=== PATIENT | male | born 1955 | race Caucasian/White ===

== ENCOUNTER → 2019-05-20 05:59 | Outpatient (CLI) | payer MEDICARE, OTHER, SELFPAY ==
--- NOTE | 2019-05-20 11:09 | STRESSREP ---
Stress Test Report Exercise myocardial perfusion stress test. 63-year-old man with a history of chest pain. Medications, vitamin C, allopurinol. Stress protocol: Resting EKG demonstrates sinus bradycardia with a rate of 54 bpm normal intervals are noted resting blood pressures 130/82 mmHg. The patient exercised according to regular Frank protocol for total duration of 7 minutes and 45 seconds. The maximum heart rate attained was 141 bpm which was 90% of maximal predicted heart rate the maximum workload was 9.7 metabolic equivalents. At rest there were no ST or T wave changes noted suggest ischemia peak exercise upsloping ST changes only were noted with no meet the criteria for ischemia. No clinical angina was noted. The test was terminated due to leg fatigue. The resting blood pressures 130/82 mmHg with a peak blood pressure 182/82 mmHg. Rate-pressure product was 17,400. Myocardial perfusion protocol. 15.0 mCi of technetium 99m sestamibi was injected at rest. The patient exercised according to regular Frank protocol for 7 minutes 45 seconds at peak exercise 45 mCi of technetium 99m sestamibi was injected stress images were obtained stress and rest images were reconstructed in comparing the short axis vertical long horizontal long axis. Gated images was obtained Perfusion SPECT analysis: Review of the stress images demonstrate normal uptake of tracer noted in all areas of myocardium the resting images similar demonstrate normal uptake of tracer noted in all areas of the myocardium. No reversibility is no suggest ischemia no previous infarct is noted. Gated SPECT analysis: The gated ejection fraction is noted to be 56%. Conclusion: Normal exercise myocardial perfusion stress test with no evidence of ischemia. Preserved ejection fraction.
== END ==
PROVIDERS: Family Provider Family Medicine; PCP Family Medicine; Referring Provider Family Medicine; Visit Provider Family Medicine
DX: I77.89 Other specified disorders of arteries and arterioles (principal); R93.1 Abnormal findings on diagnostic imaging of heart and coronary circulation; I51.89 Other ill-defined heart diseases; I42.9 Cardiomyopathy, unspecified
CPT/HCPCS: 78452; 93017; A9500; A4216

== ENCOUNTER 2023-06-27 11:10 | Emergency (ER) | payer MEDICARE, OTHER, SELFPAY ==
[2023-06-27 11:13] VITALS: BP 180/96; PULSE 59; RESP 16; TEMP 36.8; O2SAT 99; BMI 37.8
--- NOTE | 2023-06-27 11:43 | CT_ITS ---
STUDY: CT ABDOMEN AND PELVIS WITHOUT CONTRAST REASON FOR EXAM: Male, 67 years old. Right flank pain RADIATION DOSAGE (If Supplied By Facility): CTDIvol = ( 23.01 ) mGy, DLP = ( 1304.77 ) mGycm TECHNIQUE: Transaxial images were obtained from the dome of the diaphragm to the symphysis pubis without oral contrast, and without intravenous contrast. Sagittal and coronal images were reconstructed. Individualized dose optimization techniques were used for this CT. COMPARISON: None. FINDINGS: Minimal increased markings in the posterior aspect of the lingular segment of the left upper lobe suggestive of either atelectasis and/or scarring. The visualized portions of the heart are within normal limits. Normal liver. I suspect tiny gallstones along the dependent portion of the gallbladder lumen. Normal spleen. Normal pancreas. Normal bilateral adrenal glands. Right perinephric stranding. 2 mm nonobstructive catheter is in the mid pole calyx of the right kidney. 2.5 mm nonobstructive calculus in the lower pole calyx of the right kidney. Mild degree of a right hydronephrosis and right hydroureter due to a recently passed calculus at the right side of the bladder. This measures 3.9 mm. Nonobstructive calculi are also seen in the left kidney in the mid and lower pole calyces. The larger measures 4 mm. There is a 3 cm x 2.4 cm cyst in the lower pole of the left kidney. There is a small hiatal hernia. Normal small intestine. Normal colon. The appendix is visualized and appears normal. There is scattered atherosclerotic calcification of the abdominal aorta, without a demonstrated aneurysm. Normal inferior vena cava. Normal retroperitoneum. Normal urinary bladder. There is enlargement of the prostate gland. Small bilateral inguinal hernias containing fat. There are degenerative changes of the visualized lumbar spine. CT/Abdomen/Pelvis without Cont IMPRESSION: Findings suggestive of recently passed 3.9 mm calculus at the base of the bladder on the right side. Mild right perinephric stranding and right hydronephrosis and right hydroureter. Nonobstructive calculi in the right kidney. I suspect tiny gallstones. Nonobstructive left intrarenal calculi. Electronically Signed: Sly Jones MD at 13:05 EST ,
--- NOTE | 2023-06-27 11:44 | ED.VIS.GI ---
HPI HPI - GI History of Present Illness Chief Complaint: Abd Pain Detail of Chief Complaint: Abdominal pain Informant: patient Abdominal Pain/Flank Pain Current Severity: 01/12 Narrative Narrative: Patient presents with abdominal pain started this morning around 8:30 AM. Complains of nausea. Complains of the pain kind of in his back and flank radiating towards the groin. He has had nausea but no vomiting. His did give him 1 Zofran. Patient rates the pain currently as an 8 out of 10. He had some bowel movements frequently this morning felt like he needed to go and just passed a few small hard stools that then became soft. He is having sensation of needing to urinate but only get small amounts of urine out. He does have remote history of kidney stone about 4 years ago. Patient has history of hypertension and high cholesterol as well as history of thyroidectomy. [facility] Medical History (Updated 06/27/23 @ 13:[address] Farooq Simmons, ) Basal cell carcinoma Gout HTN (hypertension) Hyperlipidemia Pyelonephritis Restless leg syndrome Thyroid cancer Vertigo Home Medications Ibuprofen [Motrin] 800 mg PO TID PRN PRN Pain #20 tabs 07/04/14 [Rx Last Taken Unknown] cyclobenzaprine 10 mg tablet 10 mg PO TID PRN Muscle Spasm ##20 07/04/14 [Rx Last Taken Unknown] hydrocodone-acetaminophen 5-325mg 5mg-325mg 1 tab PO Q6H PRN PRN Pain ##10 07/04/14 [Rx Last Taken Unknown] hydrocodone-acetaminophen 5-325mg 5mg-325mg 1 tab PO Q4H PRN PRN Pain 2 days #10 TABLETS 06/27/23 [Rx Last Taken Unknown] ondansetron 4 mg disintegrating tablet 4 mg PO Q8H PRN PRN Nausea #10 tabs 06/27/23 [Rx Last Taken Unknown] Allergy/AdvReac Type Severity Reaction Status Date / Time No Known Allergies Allergy Verified 06/27/23 11:13 Social History Smoking Status: Never smoker ROS ROS ED Review of Systems ROS Unobtainable: other Constitutional Constitutional ED: Reports lethargy; Denies chills, fever(s), sweats or weight loss Eyes Eyes: Denies blurry vision, change in vision or diplopia ENT ENT ED: Denies rhinorrhea or sore throat Cardiovascular Cardiovascular: Denies chest pain, orthopnea or racing heartbeat Respiratory/Chest Respiratory/Chest: Denies cough, dyspnea, dyspnea on exertion, orthopnea or sputum Gastrointestinal Gastrointestinal: Reports abdominal pain and nausea; Denies diarrhea or vomiting Genitourinary Genitourinary ED: Reports urinary frequency; Denies dysuria or hematuria Musculoskeletal Musculoskeletal: Denies arthralgias, back pain, myalgias or neck pain Integumentary Denies abscess, Abrasions or rash Neurologic Neurologic: Denies headache(s) or weakness Psychiatric Psychiatric: Denies anxiety, depression or suicidal thoughts Endocrine Endocrinology: Denies polydipsia, polyphagia or polyuria Hematologic/Lymphatic Hematologic/Lymphatic: Denies easy bleeding, easy bruising or lymphadenopathy Allergic/Immunologic Allergic/Immunologic ED: Denies mouth swelling, tongue swelling or urticaria EXAM Physical Exam Const Vital Signs: 06/27/23 11:13 06/27/23 13:39 Temperature 98.2 F Temperature Source Temporal Pulse Rate 59 L 78 Respiratory Rate 16 Blood Pressure 180/96 H 124/71 H Blood Pressure Mean 124 88 Pulse Ox 99 98 Oxygen Delivery Method Room Air Positive well nourished and well developed General Appearance ED: well developed and NAD HEENT Reports TM's clear and moist mucous membranes normocephalic and atraumatic; Negative for trauma or tenderness Tympanic Membrane ED: Yes TM's clear Eyes PERRL and EOMs intact bilaterally General Eye ED: Negative for pale conjunctiva or scleral icterus Neck no lymphadenopathy, supple and no JVD General: Negative for tenderness Chest Wall Negative for inspection of chest normal or palpation of chest normal Chest: Negative for tenderness Resp normal respiratory effort and clear to auscultation bilaterally Effort and Inspection: Negative for respiratory distress or pain with movement Auscultation: Negative for rhonchi, wheezes or diminished lung sounds Cardio regular rate, regular rhythm, S1 normal heart sound, S2 normal heart sound and no murmurs Peripheral Pulses: pulses 2+ throughout GI normal to inspection, nondistended, normoactive bowel sounds, soft to palpation, non-tender, non-distended and no masses GI Narrative: Tenderness palpation over right lower quadrant with some guarding. There is no rebound, rigidity, or peritoneal signs. Back/Spine no thoracic nor lumbar tenderness Back/Spine Narrative: CVA tenderness on the right Extremity normal to inspection General Extremety ED: Negative for edema General Extremity: Negative for edema Neuro oriented x3, CN's II-XII intact bilaterally, no sensory deficits noted and gait normal Sensorium / Orientation: awake, alert, oriented to person, oriented to place and oriented to time Motor Exam: strength 5/5 throughout and strength abnormal Psych mental status grossly normal Skin no rashes or lesions noted and no wounds MDM MDM MDM Narrative Medical decision making narrative: Patient presents with abdominal pain and urinary symptoms that started today. History of kidney stone 4 years ago. Pain progressively is worsened. In the differential would be kidney stone versus bowel obstruction or gallbladder disease or other acute intra-abdominal process. IV line established. He was medicated with Dilaudid and Toradol and Zofran and his pain resolved. CBC with differential obtained showed a white count of 9.8 with hemoglobin 14.4 and platelet count of 226. Chemistries unremarkable. LFTs were normal. BUN 23 and creatinine 1.61. Urinalysis showed 5-10 RBCs but no signs of infection. CT flank showed recently passed stone measuring 3.9 mm within the base of the bladder and mild right perinephric stranding. Discussed results with patient. He is comfortable currently. Will send home with urine strainer. Will give a prescription for a few [place] should he need something for pain for residual ureteral spasm. Will refer to urology for follow-up. Patient advised to return if worsening pain, fever, vomiting, or condition worsening way. Lab Data Labs: Laboratory Results - last 24 hr 06/27/23 06/27/23 11:55 12:00 WBC 9.8 RBC 5.02 Hgb 14.4 Hct 43.9 MCV 87.5 MCH 28.7 MCHC 32.8 RDW Std Deviation 41.0 RDW Coeff of Yoselyn 12.8 Plt Count 226 MPV 10.6 Immature Gran % (Auto) 0.400 Neut % (Auto) 72.3 H Lymph % (Auto) 17.7 L [place] % (Auto) 7.1 Eos % (Auto) 1.9 Baso % (Auto) 0.6 Absolute Neuts (auto) 7.1 Absolute Lymphs (auto) 1.74 Nucleated RBC % 0 Sodium 140 Potassium 4.2 Chloride 107 Carbon Dioxide 28.0 Anion Gap 5 BUN 23 H Creatinine 1.61 H Estim Creat Clear Calc 57.86 Est GFR (MDRD) Af Amer 55 L Est GFR (MDRD) Non-Af 45 L BUN/Creatinine Ratio 14.3 Glucose 104 Calcium 10.1 Total Bilirubin 0.60 AST 24 ALT 33 Alkaline Phosphatase 74 Total Protein 7.7 Albumin 3.9 Globulin 3.8 Albumin/Globulin Ratio 1.0 Urine Color Yellow Urine Clarity Clear Urine pH 5.0 Ur Specific Nu [place] 1.020 Urine Protein Negative Urine Glucose (UA) Normal Urine Ketones Negative Urine Occult Blood 150 H Urine Nitrite Negative Urine Bilirubin Negative Urine Urobilinogen Normal Ur Leukocyte Esterase 25 H Urine RBC 5-10 SEEN Urine WBC 0-5 SEEN Ur Squamous Epith Cells 0 SEEN Urine Bacteria 0 SEEN Urine Mucus 0 SEEN Radiography Diagnostic Testing: Clinical Impression(s) from Imaging Studies Abdomen/Pelvis CT 06/27/23 11:43 IMPRESSION: Findings suggestive of recently passed 3.9 mm calculus at the base of the bladder on the right side. Mild right perinephric stranding and right hydronephrosis and right hydroureter. Nonobstructive calculi in the right kidney. I suspect tiny gallstones. Nonobstructive left intrarenal calculi. Electronically Signed: Sly Jones MD at 13:05 EST , Discharge Plan Triage Chief Complaint: Abd Pain ED Provider: Farooq Simmons Dx/Rx/DC Orders Clinical Impression: Urolithiasis Instructions: ED Kidney Stone with Pain Prescriptions: New hydrocodone-acetaminophen [hydrocodone-acetaminophen] 5-325 mg tablet 1 tab PO Q4H PRN PRN (Reason: Pain) 2 Days Qty: 10 0RF ondansetron [ondansetron] 4 mg tablet,disintegrating 4 mg PO Q8H PRN PRN (Reason: Nausea) Qty: 10 0RF No Action Ibuprofen [Motrin] 800 MG tablet 800 mg PO TID PRN PRN (Reason: Pain) Qty: 20 0RF Rx Instructions: cyclobenzaprine 10 MG tablet 10 mg PO TID PRN (Reason: Muscle Spasm) Qty: 20 0RF hydrocodone-acetaminophen 1 TABLET tablet 1 tab PO Q6H PRN PRN (Reason: Pain) Qty: 10 0RF Primary Care Provider: Anthony Solano Referrals: David Weeks MD [Med Staff - Active Staff] - 3-5 Days Anthony Solano MD [Primary Care Provider] - Disposition Disposition: Home, Self Care Discharge Date/Time: 06/27/23 13:41
[2023-06-27] MEDS: Ondansetron 4 MG/2 ML Vial IV (11:56)
[2023-06-27] MEDS: Ketorolac 15 MG/ML Vial IV (11:56)
[2023-06-27] MEDS: HYDROmorphone 1 MG/ML Syringe IV (11:57)
[2023-06-27 12:07] LABS: Bacteria 0 SEEN /hpf (None Seen); Mucous, Urine 0 SEEN /hpf (<or=2+); Squamous Epithelial Cells - UA 0 SEEN /hpf (0-5)
[2023-06-27 12:08] LABS: Absolute Lymphocyte Count 1.74 X10^3/uL (0.83-4.51); Absolute Neutrophil Count 7.1 X10^3/uL (2.0-7.7); Basophil# 0.06 X10^3/uL; Basophil% 0.6 % (0-1); Eosinophil# 0.19 X10^3/uL; Eosinophils% 1.9 % (0-5); Hematocrit 43.9 % (40-54); Hemoglobin 14.4 g/dL (13.0-16.5); Lymphocyte # 1.74 X10^3/ul (0.83-4.51); Lymphocyte % 17.7 % (19-41); Mean Corp Hgb Conc 32.8 g/dL (32-36); Mean Corpuscular Hgb 28.7 pg (27.0-32.0); Mean Corpuscular Volume 87.5 fL (80-94); Mean Platelet Vol. 10.6 fl (6.2-12.0); Monocyte% 7.1 % (0-10); NRBC Flagged by Analyzer 0 % (0-5); Neutrophil % 72.3 % (47-70); Platelet Count 226 K/mm3 (150-450); RBC Distribution Width CV 12.8 % (11.6-14.6); Red Blood Count 5.02 M/mm3 (4.6-6.2); White Blood Count 9.8 K/mm3 (4.4-11.0)
[2023-06-27 12:09] LABS: Color, Urine Yellow (Yellow); Glucose, Dipstick Normal (Normal); Ketone-Dipstick Negative (Negative); Leukocyte Esterase-Dipstick 25 /ul (Negative); Nitrite-Dipstick Negative (Negative); Occult Blood-Urine 150 /ul (Negative); Protein-Dipstick Negative (Negative); Urine Bilirubin Dipstick Negative (Negative); Urine Clarity Clear (Clear); Urine Urobilinogen Normal (Normal)
[2023-06-27 12:17] LABS: Red Blood Cells-Urine 5-10 SEEN /hpf (0-5); White Blood Cells 0-5 SEEN /hpf (0-5)
[2023-06-27] MEDS: 0.9% Normal Saline (1000mL) 1,000 ML 150 ML IV (12:17)
[2023-06-27 12:24] LABS: AST(SGOT) 24 U/L (15-37); Alanine Aminotransfer ALT/SGPT 33 U/L (16-61); Albumin, Serum 3.9 g/dL (3.2-5.0); Alkaline Phosphatase 74 U/L (45-117); Anion Gap 5 (5-15); BUN 23 mg/dL (7-18); BUN/Creat Ratio 14.3 RATIO (10-20); Calcium,Total 10.1 mg/dL (8.5-10.1); Chloride 107 mmol/L (98-107); Creatinine, Serum 1.61 mg/dL (0.70-1.30); EST Glomerular Filtration Rate 45 mL/min (>60); Est Glom Filt Rate - Afr Amer 55 mL/min (>60); Estimated Creatinine Clearance 57.86 ml/min; Globulin 3.8 g/dL (2.2-4.2); Glucose 104 mg/dL (74-106); Potassium 4.2 mmol/L (3.5-5.1); Protein, Total 7.7 g/dL (6.4-8.2); Sodium Level 140 mmol/L (136-145)
--- OUTSIDE RECORDS SUMMARY | 2023-06-27 12:36 | XMS RPT_ITS | CCD ---
Author Name Unknown Address [address] [facility] [address] [place] [address] Organization [facility] Care Team Providers Care Free Lance Model Name Role Phone Bandar Graf PA-C Primary Care Provider [phone] Armond El DO Unavailable Bandar GRAF Primary Care Unavailable Bandar GRAF Attending Unavailable SELF Referring Unavailable IBAN CHIN Referring Unavailable Bandar GRAF Primary Care Unavailable Bandar GRAF Primary Care Unavailable HARLAN PALAFOX Attending Unavailable Bandar GRAF Primary Care Unavailable SILVIA LEÓN Referring Unavailable Bandar GRAF Primary Care Unavailable Bandar GRAF Primary Care Unavailable ARMOND EL Referring Unavailab ARMOND Stovall Attending Unavailab Bandar [place] Primary Care Unavailable Bandar GRAF Primary Care Unavailable ELENA SEPULVEDA Referring Unavailable Bandar GRAF Primary Care Unavailable ELIZABETH LOREDO JR Attending Unavailable Bandar GRAF Primary Care Unavailable ELENA SEPULVEDA Attending Unavailable IBAN CHIN Attending Unavailable Bandar GRAF Primary Care Unavailable MILO REEVES Referring Unavailable Bandar GRAF Attending Unavailable Bandar GRAF Primary Care Unavailable CASEY PERALES Attending Unavailable Bandar GRAF Primary Care Unavailable CASEY PERALES Referring Unavailable Bandar GRAF Primary Care Unavailable Bandar GRAF Primary Care Unavailable ELIZABETH LOREDO JR Attending Unavailable SELF Referring Unavailable Bandar GRAF Primary Care Unavailable RAFA LEBRON Attending Unavailable Medications Current Medications Medication Drug Class(es) Dates Sig (Normalized) Sig (Original) perflutren lipid microspheres 1.3 mL in NaCl (PF) 0.9% 10 mL injection (DEFINITY) (20 sources) Start: 09-14-2022 End: 12-14-2023 perflutren lipid microspheres 1.3 mL in NaCl (PF) 0.9% 10 mL injection (DEFINITY) Completed/Discontinued Medications Medication Drug Class(es) Dates Sig (Normalized) Sig (Original) allopurinol 300 mg oral tablet (20 sources) Xanthine Oxidase Inhibitor Start: 01-24-2023 take 1 tablet by mouth once daily allopurinol (ZYLOPRIM) 300 mg tablet Indications: Gout with manifestations Take 1 tablet by mouth once daily. 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] Onset: 01-14-2011 01-14-2011 Chronic Complications of surgical procedures or medical care (20 sources) Postoperative hypothyroidism; Translations: [Postprocedural hypothyroidism] Onset: 05-07-2018 05-07-2018 Chronic Disorders of lipid metabolism (20 sources) Mixed hyperlipidemia; Translations: [Mixed hyperlipidemia] Onset: 11-16-2015 11-16-2015 Chronic Essential hypertension (20 sources) Essential hypertension; Translations: [Essential (primary) hypertension] Onset: 07-06-2021 07-06-2021 Chronic Gout and other crystal arthropathies (20 sources) Gout; Translations: [Gout, unspecified] Onset: 03-23-2009 03-23-2009 Chronic Heart valve disorders (2 sources) Non-rheumatic mitral regurgitation ; Translations: [Nonrheumatic mitral (valve) insufficiency] Chronic Other and ill-defined heart disease (20 sources) Mild left ventricular systolic dysfunction; Translations: [Other ill-defined heart diseases] Onset: 07-08-2019 07-06-2021 Chronic Other and ill-defined heart disease (1 source) Other ill-defined heart diseases; Translations: [Mild left ventricular systolic dysfunction] Onset: 07-06-2021 Chronic Other diseases of kidney and ureters (1 source) Renal impairment; Translations: [Disorder of kidney and ureter, unspecified] 07-09-2023 Episodic Other hereditary and degenerative nervous system conditions (20 sources) Restless legs; Translations: [Restless legs syndrome] Onset: 10-20-2020 10-20-2020 Chronic Other hereditary and degenerative nervous system conditions (1 source) Restless legs syndrome; Translations: [Restless legs syndrome] Onset: 10-20-2020 Chronic Other nervous system disorders (1 source) Other chronic pain; Translations: [Chronic midline low back pain without sciatica] Onset: 06-14-2016 Chronic Other nervous system disorders (1 source) Notalgia paresthetica; Translations: [Paresthesia of skin] 01-11-2023 Episodic Other non-traumatic joint disorders (1 source) Acute ankle pain; Translations: [Pain in left ankle and joints of left foot] Episodic Other nutritional; endocrine; and metabolic disorders (20 sources) Obese class II; Translations: [Obesity, unspecified] Onset: 10-25-2017 10-25-2017 Chronic Other nutritional; endocrine; and metabolic disorders (1 source) Obesity; Translations: [Obesity, unspecified] 12-12-2022 Chronic Other nutritional; endocrine; and metabolic disorders (1 source) Obesity, unspecified; Translations: [Obesity, Class II, BMI 35-39.9] Onset: 10-25-2017 Chronic Other skin disorders (2 sources) Actinic keratosis; Translations: [Actinic keratosis] 01-11-2023 Episodic Other skin disorders (1 source) Inflamed seborrheic keratosis; Translations: [Inflamed seborrheic keratosis] 01-11-2023 Episodic Other upper respiratory infections (1 source) Acute upper respiratory infection; Translations: [Acute upper respiratory infection, unspecified] Episodic Pulmonary heart disease (20 sources) Pulmonary hypertension, unspecified; Translations: [Other chronic pulmonary heart diseases] Onset: 07-06-2021 07-06-2021 Chronic Residual codes; unclassified (20 sources) Obstructive sleep apnea syndrome; Translations: [Obstructive sleep apnea (adult) (pediatric)] Onset: 10-20-2020 10-20-2020 Chronic Residual codes; unclassified (1 source) Obstructive sleep apnea (adult) (pediatric); Translations: [MAXIMILIAN (obstructive sleep apnea)] Onset: 10-20-2020 Chronic Residual codes; unclassified (1 source) Other specified personal risk factors, not elsewhere classified; Translations: [Other specified personal history presenting hazards to health] Episodic Respiratory failure; insufficiency; arrest (adult) (1 source) Respiratory failure; insufficiency; arrest (adult); Translations: [Chronic renal failure (CRF), stage 3a (HCC)] Onset: 06-26-2023 Unclassified (1 source) 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); Translations: [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)] Onset: 09-05-2022 Unclassified (1 source) Chronic midline low back pain without sciatica; Translations: [Chronic midline low back pain without sciatica] Onset: 06-14-2016 Past or Other Problems Problem Classification Problem Date Documented Da te Episodic/Chronic Cardiac dysrhythmias (20 sources) Sinus bradycardia; Translations: [Bradycardia, unspecified] Onset: 07-06-2021 07-06-2021 Episodic Other diseases of kidney and ureters (1 source) Disorder of kidney and ureter, unspecified; Translations: [Renal insufficiency] Onset: 12-12-2022 Episodic Other ear and sense organ disorders (20 sources) Tinnitus; Translations: [Tinnitus, unspecified ear] Onset: 08-06-2010 08-06-2010 Episodic Other non-epithelial cancer of skin (20 sources) Malignant neoplasm of skin of face; Translations: [Unspecified malignant neoplasm of skin of nose] Onset: 08-23-2012 08-23-2012 Episodic Other non-traumatic joint disorders (1 source) Pain in left ankle and joints of left foot; Translations: [Acute left ankle pain] Onset: 11-09-2022 Episodic Other screening for suspected conditions (not mental disorders or infectious disease) (5 sources) Raised prostate specific antigen; Translations: [Elevated prostate specific antigen [PSA]] Onset: 12-12-2022 Episodic Residual codes; unclassified (20 sources) Family history of prostate cancer; Translations: [Family history of malignant neoplasm of prostate] Onset: 11-16-2015 11-16-2015 Episodic Residual codes; unclassified (20 sources) Insomnia; Translations: [Insomnia, unspecified] Onset: 07-08-2019 10-14-2020 Episodic Residual codes; unclassified (1 source) Insomnia, unspecified; Translations: [Insomnia, unspecified type] Onset: 10-14-2020 Episodic Residual codes; unclassified (1 source) Family history of malignant neoplasm of prostate; Translations: [Family history of prostate cancer in father] Onset: 11-16-2015 Episodic Spondylosis; intervertebral disc disorders; other back problems (20 sources) Chronic low back pain; Translations: [Chronic midline low back pain without sciatica] Onset: 06-14-2016 06-14-2016 Episodic Results Test Name Value Interpretation Reference Range Facil ity Vital Signs Date Time Vital Sign Value Performing Clinician Faci lity 03-16-2023 09:20-0400 Body height 180.3 cm Armond El DO Work Phone: [facility] 03-16-2023 09:20-0400 Body weight 120.66 kg Armond El DO Work Phone: [facility] 03-16-2023 09:20-0400 Diastolic blood pressure 76 mm[Hg] Armond El DO Work Phone: [facility] 03-16-2023 09:20-0400 Heart rate 54 /min Armond El DO Work Phone: [facility] 03-16-2023 09:20-0400 SaO2% (BldA) [Mass fraction] 97 % Armond El DO Work Phone: [facility] 03-16-2023 09:20-0400 Systolic blood pressure 128 mm[Hg] Armond El DO Work Phone: [facility] 12-12-2022 10:04-0400 Body temperature 97.9 [degF] Elizabeth Loredo Jr., MD Work Phone: [facility] 12-12-2022 10:04-0400 Body weight 117.48 kg Elizabeth Loredo Jr., MD Work Phone: [facility] 12-12-2022 10:04-0400 Heart rate 52 /min Elizabeth Loredo Jr., MD Work Phone: [facility] 12-12-2022 10:04-0400 Respiratory rate 16 /min Elizabeth Loredo Jr., MD Work Phone: [facility] 12-12-2022 10:04-0400 SaO2% (BldA) [Mass fraction] 96 % Elizabeth Loredo Jr., MD Work Phone: [facility] 12-12-2022 08:29-0400 Body weight 117.48 kg NA Graf PA-C Work Phone: [facility] 12-12-2022 08:29-0400 Diastolic blood pressure 72 mm[Hg] NA Graf PA-C Work Phone: [facility] 12-12-2022 08:29-0400 Heart rate 61 /min NA Graf PA-C Work Phone: [facility] 12-12-2022 08:29-0400 Respiratory rate 16 /min NA Graf PA-C Work Phone: [facility] 12-12-2022 08:29-0400 SaO2% (BldA) [Mass fraction] 98 % NA Graf PA-C Work Phone: [facility] 12-12-2022 08:29-0400 Systolic blood pressure 128 mm[Hg] NA Graf PA-C Work Phone: [facility] 11-09-2022 08:52-0400 Body temperature 97.59 [degF] Casey Perales PA-C Work Phone: [facility] 11-09-2022 08:52-0400 Body weight 116.57 kg Casey Perales PA-C Work Phone: [facility] 11-09-2022 08:52-0400 Diastolic blood pressure 70 mm[Hg] Casey Perales PA-C Work Phone: [facility] 11-09-2022 08:52-0400 Heart rate 52 /min Casey Perales PA-C Work Phone: [facility] 11-09-2022 08:52-0400 Respiratory rate 18 /min Casey Perales PA-C Work Phone: [facility] 11-09-2022 08:52-0400 Systolic blood pressure 110 mm[Hg] Casey Perales PA-C Work Phone: [facility] 09-14-2022 10:23-0400 Body height 181.6 cm Iban Chin LEARN TO SWIM INSTRUCTOR.WIRE BOUND BOX MACHINE HELPER Work Phone: [facility] 09-14-2022 10:23-0400 Body weight 119.93 kg Iban Chin LEARN TO SWIM INSTRUCTOR.WIRE BOUND BOX MACHINE HELPER Work Phone: [facility] 09-14-2022 10:23-0400 Diastolic blood pressure 70 mm[Hg] Iban Chin LEARN TO SWIM INSTRUCTOR.WIRE BOUND BOX MACHINE HELPER Work Phone: [facility] 09-14-2022 10:23-0400 Heart rate 43 /min Iban Chin LEARN TO SWIM INSTRUCTOR.WIRE BOUND BOX MACHINE HELPER Work Phone: [facility] 09-14-2022 10:23-0400 SaO2% (BldA) [Mass fraction] 99 % Iban Chin LEARN TO SWIM INSTRUCTOR.WIRE BOUND BOX MACHINE HELPER Work Phone: [facility] 09-14-2022 10:23-0400 Systolic blood pressure 114 mm[Hg] Iban Chin LEARN TO SWIM INSTRUCTOR.WIRE BOUND BOX MACHINE HELPER Work Phone: [facility] 07-06-2022 10:40-0500 Body weight 118.84 kg Elena Dias MD Work Phone: [facility] 07-06-2022 10:40-0500 Diastolic blood pressure 82 mm[Hg] Elena Dias MD Work Phone: [facility] 07-06-2022 10:40-0500 Heart rate 47 /min Elena Dias MD Work Phone: [facility] 07-06-2022 10:40-0500 Systolic blood pressure 132 mm[Hg] Elena Dias MD Work Phone: [facility] 06-13-2022 13:47-0500 Body temperature 97.2 [degF] Elizabeth Loredo Jr., MD Work Phone: [facility] 06-13-2022 13:47-0500 Body weight 118.66 kg Elizabeth Loredo Jr., MD Work Phone: [facility] 06-13-2022 13:47-0500 Diastolic blood pressure 74 mm[Hg] Elizabeth Loredo Jr., MD Work Phone: [facility] 06-13-2022 13:47-0500 Heart rate 58 /min Elizabeth Loredo Jr., MD Work Phone: [facility] 06-13-2022 13:47-0500 Respiratory rate 16 /min Elizabeth Loredo Jr., MD Work Phone: [facility] 06-13-2022 13:47-0500 SaO2% (BldA) [Mass fraction] 97 % Elizabeth Loredo Jr., MD Work Phone: [facility] 06-13-2022 13:47-0500 Systolic blood pressure 125 mm[Hg] Elizabeth Loredo Jr., MD Work Phone: [facility] 01-21-2022 07:15-0400 Body temperature 98.91 [degF] Millie Wolf APRN.WIRE BOUND BOX MACHINE HELPER Work Phone: [facility] 01-21-2022 07:15-0400 Body weight 118.3 kg Millie Wolf APRN.WIRE BOUND BOX MACHINE HELPER Work Phone: [facility] 01-21-2022 07:15-0400 Diastolic blood pressure 66 mm[Hg] Millie Wolf APRN.WIRE BOUND BOX MACHINE HELPER Work Phone: [facility] 01-21-2022 07:15-0400 Heart rate 69 /min Millie Wolf APRN.WIRE BOUND BOX MACHINE HELPER Work Phone: [facility] 01-21-2022 07:15-0400 Respiratory rate 21 /min Millie Wolf APRN.WIRE BOUND BOX MACHINE HELPER Work Phone: [facility] 01-21-2022 07:15-0400 SaO2% (BldA) [Mass fraction] 98 % Millie Wolf APRN.W[employer] BOUND BOX MACHINE HELPER Work Phone: [facility] 01-21-2022 07:15-0400 Systolic blood pressure 114 mm[Hg] Millie Lynn WIRE BOUND BOX MACHINE HELPER Work Phone: [facility] 11-25-2021 11:37-0400 Body weight 118.39 kg Elizabeth Loredo Jr., MD Work Phone: [facility] 11-25-2021 11:37-0400 Diastolic blood pressure 77 mm[Hg] Elizabeth Loredo Jr., MD Work Phone: [facility] 11-25-2021 11:37-0400 Heart rate 53 /min Elizabeth Loredo Jr., MD Work Phone: [facility] 11-25-2021 11:37-0400 SaO2% (BldA) [Mass fraction] 96 % Elizabeth Loredo Jr., MD Work Phone: [facility] 11-25-2021 11:37-0400 Systolic blood pressure 122 mm[Hg] Elizabeth Loredo Jr., MD Work Phone: [facility] Encounters Encounter Date Encounter Type Care Provider Facility Start: 06-26-2023 End: 06-26-2023 ambulatory [facility] Facility:[facility] Start: 06-19-2023 End: 06-20-2023 ambulatory [facility] Facility:[facility] Start: 04-20-2023 Telephone encounter Rafa Philippe on PA-C Work Phone: Dermatology Procedures Date Procedure Procedure Detail Performing Clinician Start: 12-12-2022 Lipid 1996 panel - S vishnu or Plasma Elizabeth Loredo Jr., MD Work Phone: Start: 09-14-2022 Ecg routine ecg w/le ast 12 lds i&r only [facility] Provider Start: 11-24-2021 Adult depression scr eening assessment Elizabeth Loredo Jr., MD Work Phone: Start: 10-13-2020 Adult depression scr eening assessment Rafa Lebron PA-C Work Phone: Start: 04-04-2014 Colonoscopy Rafa Philippe on PA-C Work Phone: Plan of Treatment Date Care Activity Detail Author Start: 06-13-2032 Urine microalbumin profile [facility] Start: 12-13-2027 Lipid 1996 panel - S vishnu or Plasma Lipid Screening [facility] Start: 12-13-2027 LIPID SCREEN LIPID SCREEN [facility] Start: 06-21-2027 PROSTATE CANCER SCRE ENING DISCUSSION PROSTATE CANCER SCREENING DISCUSSION [facility] Start: 06-15-2027 LIPID SCREEN LIPID SCREEN [facility] Start: 07-13-2026 LIPID SCREEN LIPID SCREEN [facility] Start: 06-15-2025 DIABET[facility] Start: 06-15-2025 Diabetes Screening Diabetes Screenin g [facility] Start: 04-04-2024 Colonoscopy COLONOSCOPY [facility] Start: 04-04-2024 COLORECTAL CANCER SCREENING COLORECTAL CANCER SCREENING [facility] Start: 03-16-2024 BP Controlled (<130/80) BP Controlle d (<130/80) [facility] Start: 12-13-2023 ANNUAL PCP TEAM [place] RAISER CECILIA DISEASE VISIT ANNUAL PCP TEAM CHRONIC DISEASE VISIT [facility] Start: 12-13-2023 BP CONTROLLED (<130/80) BP CONTROLLE D (<130/80) [facility] Start: 12-13-2023 SHINGRIX VACCINE (1 of 2) RAO GRIX VACCINE (1 of 2) [facility] Immunizations Immunization Date Immunization Notes Care Provider Bean washburn 06-13-2022 tetanus toxoid, redu tiara diphtheria toxoid, and acellular pertussis vaccine, adsorbed Elizabeth Loredo Jr., MD Work Phone: [facility] 03-23-2020 influenza, high-dose , quadrivalent vaccine (FLUZONE HIGH DOSE QUADRIVALENT) Rafa Lebron PA-C Work Phone: [facility] Work Phone: 03-23-2020 influenza virus vaccine, unspecified formulation Elizabeth Loredo Jr., MD Work Phone: [facility] 03-25-2019 influenza, high dose seasonal, preservative-free Rafa Lebron PA-C Work Phone: [facility] Work Phone: 03-25-2019 pneumococcal conjuga te vaccine, 13 valent Rafa Lebron PA-C Work Phone: [facility] Work Phone: 05-14-2018 influenza, injectabl e, quadrivalent, contains preservative Rafa GRIFFITH-Taisha Work Phone: [facility] 02-27-2017 influenza, injectabl e, quadrivalent, contains preservative Rafa GRIFFITH-C Work Phone: [facility] 03-19-2016 influenza, seasonal, injectable Rafa GRIFFITH-C Work Phone: [facility] 08-06-2010 tetanus and diphther ia toxoids, not adsorbed, for adult use Rafa Lebron PA-C Work Phone: [facility] Payers Date Payer Category Payer Medicare MEDICARE MEDICAR E A AND B [id number] 2019-Present [phone] [place] [address] Medicare [id number] 2019 Medicare MEDICARE MEDICAR E A AND B [id number] 2019-Present [phone] [place] [address] Medicare [id number] 2019 Medicare [id number] 2019 Unknown [employer] [id number] 2019-Present [phone] [address] [place] [address] Indemnity [id number] 2019 Unknown [employer] [id number] 2019-Present [phone] [address] [place] [address] Indemnity [id number] 2019 Unknown [id number] Social History Date Type Detail Facility Start: 09-17-2010 Tobacco smoking stat us NCIS Never smoked tobacco [facility] Work Phone: Start: 09-17-2010 Tobacco use and exposure Smokeless tobacco non-user [facility] Work Phone: Start: 07-06-2021 End: 12-12-2022 Alcohol intake Current non-drinker of alcohol (finding) [facility] Start: 1955 Sex Assigned At Male [facility] Start: 09-05-2021 End: 04-04-2022 Exposure to SARS-CoV-2 (event) Not sure [facility] Start: 06-17-2022 End: 12-12-2022 History of Social function [facility] Start: 06-17-2022 End: 12-12-2022 Tobacco use panel [facility] Adult Depression Screening Assessment 0 [facility] Start: 09-05-2019 Gender identity Identifies as male gender (finding) [facility] Start: 09-05-2019 Sexual orientation Heterosexual (fin ding) [facility] Clinical Notes 07-08-2019 to 06-26-2023 Telephone Encounter - Keri Ferro RN - 04/25/2023 3:00 PM ESTTelephone Encounter - Marry Hernandez RN - 04/20/2023 2:41 PM ESTPatient InstructionsMarry Hernandez RN - 04/20/2023 10:32 AM EST Note Date & Type Note Facility 06-26-2023 Note HNO ID: [id number] Author: Bandar GRAF PA-C Service: ? Author Type: Physician Skein Bander Type: Progress Notes Filed: 06/26/2023 10:25 Note Text: 67 year old male with c/o Aneurysm of ascending aorta without rupture (hcc) Mild left ventricular systolic dysfunction Sinus bradycardia Mild pulmonary hypertension (hcc) Maximilian (obstructive sleep apnea) Essential hypertension (primary encounter diagnosis) Chronic renal failure (crf), stage 3a (hcc) Mixed hyperlipidemia Cardiovascular interval hx: no events 09/26/2023 echo: CONCLUSIONS: - Exam indication: Ascending aortic aneurysm - LVSF WNL, EF = 52 ? 5%, normal left ventricular diastolic function. - RV size and RVSF WNL - There are no significant valvular abnormalities. - The visualized aorta is dilated with a maximal dimension of 4.3 cm. - Exam was compared with the prior echocardiographic exam performed on 08/02/2021, no significant change. Current meds: Lisinopril 5 mg daily Rosuvastatin 20 mg daily at bedtime Use of NTG: No Chest pain, arm, jaw pain, neck, or upper back pain suggestive of angina: No. SOB: No Dyspnea with exertion: No orthopnea: No Cough : No racing or irregular heartbeats: No palpitations: No syncopal sx: No Headache: No Unexplainable fatigue No Leg swelling: No Nausea: No diaphoresis: No Heartburn: No Claudication: No Smoking: No Following Low cholesterol, high fiber diet? A little If on statin: muscle aches? No If on statin: GI sx or diarrhea? No Additional history drinks a couple big bottles of water. Exercising daily with 2 miles on indoor track, stationary bike for a mile Lab review: Component Latest Ref Rng AND Units 06/15/2022 11/09/2022 12/12/2022 06/19/2023 WBC 3.70 - 11.00 k/uL 8.89 5.65 RBC 4.20 - 6.00 m/uL 4.67 4.49 Hemoglobin 13.0 - 17.0 g/dL 13.3 13.1 Hematocrit 39.0 - 51.0 % 41.9 38.4 (L) MCV 80.0 - 100.0 fL 89.7 85.5 MCH 26.0 - 34.0 pg 28.5 29.2 MCHC 30.5 - 36.0 g/dL 31.7 34.1 RDW-CV 11.5 - 15.0 % 13.2 13.2 Platelet Count 150 - 400 k/uL 233 202 MPV 9.0 - 12.7 fL 11.4 10.0 Neut% % 68.1 52.7 Abs Neut (ANC) 1.45 - 7.50 k/uL 6.05 2.98 Lymph% % 20.6 32.4 Abs Lymph 1.00 - 4.00 k/uL 1.83 1.83 Benton% % 7.5 9.4 Abs Benton <0.87 k/uL 0.67 0.53 Eosin% % 2.8 4.2 Abs Eosin <0.46 k/uL 0.25 0.24 Baso% % 0.7 0.9 Abs Baso <0.11 k/uL 0.06 0.05 Immature Gran % % 0.3 0.4 IMMATURE GRANS (ABS) <0.10 k/uL 0.03 <0.03 NRBC /100 WBC 0.0 0.0 Absolute nRBC <0.01 k/uL <0.01 <0.01 DTYPE Auto Auto Protein, Total 6.3 - 8.0 g/dL 6.6 6.8 Albumin 3.9 - 4.9 g/dL 4.2 4.3 Calcium 8.5 - 10.2 mg/dL 9.6 9.8 Bilirubin, Total 0.2 - 1.3 mg/dL 0.5 0.4 Alkaline Phosphatase 38 - 113 U/L 78 67 AST 14 - 40 U/L 18 17 ALT 10 - 54 U/L 16 17 Glucose 74 - 99 mg/dL 98 104 (H) BUN 9 - 24 mg/dL 21 26 (H) Creatinine 0.73 - 1.22 mg/dL 1.29 (H) 1.50 (H) Sodium 136 - 144 mmol/L 138 141 Potassium 3.7 - 5.1 mmol/L 4.4 4.0 Chloride 97 - 105 mmol/L 103 106 (H) CO2 22 - 30 mmol/L 28 29 Anion Gap 9 - 18 mmol/L 7 (L) 6 (L) eGFR >=60 mL/min/1.73mA? 60 50 (L) Cholesterol, Total <200 mg/dL 133 117 Triglyceride <150 mg/dL 86 55 HDL Cholesterol >39 mg/dL 56 52 Non HDL Cholesterol <130 mg/dL 77 65 Fasting Time hrs 12 11 VLDL Cholesterol <30 mg/dL 17 11 TC:HDL Ratio <5.10 2.38 2.25 LDL Cholesterol <100 mg/dL 60 54 LDL:HDL Ratio <2.54 1.07 1.04 Restless legs syndrome Current medications: Gabapentin 300mg dinner, 600mg at HS Doing well on med Sleeping better, dreaminng Follows with Dr. Loredo. 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 Yes. Thyroid pain: No. Mass effect: No. Change in energy level/ fatigue? Energy good, no motivation to do anything. Sleep disturbance ?No. Sleeping well, 6.5h on average Temperature Intolerance: cold No, hot No. Change in bowel habits? No. If yes: Weight changes?creeping upward. Change in hair or skin? No. If yes: Other symptoms: none Obesity, class ii, bmi 35-39.9 Vitals 03/16/2023 06/26/2023 06/26/2023 WEIGHT in POUNDS 266 lb 270 lb 272 lb WEIGHT in KILOGRAMS 120.657 kg 122.471 kg 123.378 kg Chronic midline low back pain without sciatica Doing pretty well but not stressing it. Cold causes knees to get sore. Current medications: Gabapentin 300 mg 1 capsule a.m., 2 capsules p.m. Skin cancer of nose Blue light treatment last week. No biopsies Chronic rhinitis Current medications: Ipratropium bromide 21 mcg - 2 sprays every 12 hours each side, no every night but sates works well. Ketoconazole 2% shampoo 2-3 times weekly HISTORIES FAMILY HISTORY Problem Relation Age of Onset Hypertension Mother Diabetes Mother Prostate Cancer Father Cancer Father Stroke Maternal Grandfather Alcohol/Drug Maternal Grandfather Cancer Paternal Grandmother PAST MEDICAL HISTORY Diagnosis D (more content not included)... [facility] 06-26-2023 Note HNO ID: [id number] Author: ELIZABETH LOREDO JR, MD Service: ? Author Type: Physician Type: Progress Notes Filed: 06/26/2023 10:16 Note Text: ESTABLISHED PATIENT VISIT CHIEF COMPLAINT: Follow Up HISTORY OF PRESENT ILLNESS: Lynn Dominguez is a 67 year old male, BMI 37.66 kg/m2 with a PMH significant for and per last office visit note of 12/12/22: 1. MAXIMILIAN (obstructive sleep apnea) - ICD9: 327.23, ICD10: G47.33 (primary diagnosis) Patient doing well both subjectively and objectively with PAP with perceived benefit. No complaints with PAP therapy. Encouraged compliance. Reminded to clean and replace equipment regularly. Advised pt not to drive or operate heavy machinery if sleepy. 2. Restless legs syndrome - ICD9: 333.94, ICD10: G25.81 Stable on current gabapentin dosing. No changes at this time. Refills provided. Renal function ok for dosing. 3. Class 2 obesity with body mass index (BMI) of 35.0 to 35.9 in adult, unspecified obesity type, unspecified whether serious comorbidity present - ICD9: 278.00, V85.35, ICD10: E66.9, Z68.35 Encouraged weight loss. PAP data download for past 90 days shows 86 nights of use for avg of 6 hours 39 minutes. 95% pressure is 9.4 cmH2O. 95% leak is 9.2 LPM. AHI is 1.0. Patient reports no issues with PAP device. States just slips the PAP on and goes to sleep. No leaks. No mask discomfort. Get replacement parts regularly. RLS varies - some days while watching tv in bed and the legs acting up. Taking 300mg gabapentin at suppler and 600mg at bedtime. Occurs a little bit after he is in bed. REVIEW OF SYSTEMS GENERAL:No weight loss, malaise or fevers. HEENT:Negative for frequent or significant headaches, No changes in hearing or vision, no nose bleeds or other nasal problems RESPIRATORY: Negative for cough, wheezing or shortness of breath. CARDIOVASCULAR: Negative for chest pain, leg swelling or palpitations. LAB/IMAGING: Those performed since patient's last visit have been reviewed. WBC (k/uL) Date Value 06/19/2023 5.65 RBC (m/uL) Date Value 06/19/2023 4.49 Hemoglobin (g/dL) Date Value 06/19/2023 13.1 Hematocrit (%) Date Value 06/19/2023 38.4 (L) MCV (fL) Date Value 06/19/2023 85.5 MCH (pg) Date Value 06/19/2023 29.2 MCHC (g/dL) Date Value 06/19/2023 34.1 RDW-CV (%) Date Value 06/19/2023 13.2 Platelet Count (k/uL) Date Value 06/19/2023 202 MPV (fL) Date Value 06/19/2023 10.0 Glucose (mg/dL) Date Value 06/19/2023 104 (H) BUN (mg/dL) Date Value 06/19/2023 26 (H) Creatinine (mg/dL) Date Value 06/19/2023 1.50 (H) Sodium (mmol/L) Date Value 06/19/2023 141 Potassium (mmol/L) Date Value 06/19/2023 4.0 Chloride (mmol/L) Date Value 06/19/2023 106 (H) CO2 (mmol/L) Date Value 06/19/2023 29 Protein, Total (g/dL) Date Value 06/19/2023 6.8 Albumin (g/dL) Date Value 06/19/2023 4.3 Calcium, Total (mg/dL) Date Value 06/19/2023 9.8 Alkaline Phosphatase (U/L) Date Value 06/19/2023 67 Bilirubin, Total (mg/dL) Date Value 06/19/2023 0.4 AST (U/L) Date Value 06/19/2023 17 ALT (U/L) Date Value 06/19/2023 17 Hep C Antibody IA (no units) Date Value 11/16/2015 Negative URINALYSIS Specific [place], Ur Date Value Ref Range Status 05/13/2019 1.008 1.005 - 1.030 Final Glucose, Urine Date Value Ref Range Status 05/13/2019 Negative Negative mg/dL Final Bilirubin, Urine Date Value Ref Range Status 05/13/2019 Negative Negative Final Ketones, Urine Date Value Ref Range Status 05/13/2019 Negative Negative Final Hemoglobin/Blood,Ur Date Value Ref Range Status 05/13/2019 Negative Negative Final Protein, Urine Date Value Ref Range Status 05/13/2019 Negative Negative mg/dL Final WBC, Urine Date Value Ref Range Status 05/13/2019 0-5 0 - 5 /HPF Final MEDICATIONS: allopurinol (ZYLOPRIM) 300 mg tabletTake 1 tablet by mouth once daily.Disp: 90 tabletRfl: 3 Calcipotriene 0.005 % solnApply to to scalp twice daily.Disp: 60 mLRfl: 3 gabapentin (NEURONTIN) 300 mg capsuleTAKE 1 CAPSULE BY MOUTH AFTER ARRIVING HOME FROM WORK THEN 2 CAPSULES AT APPROXIMATELY 7 PMDisp: 270 capsuleRfl: 1 Ipratropium [place] (ATROVENT) 21 mcg (0.03 %) nasal sprayUse 2 Sprays in the nose every 12 hours.Disp: 3.5 mLRfl: 5 ketoconazole (NIZORAL) 2 % shampooApply to wet hair, lather, and rinse thoroughly. Use 2-3 times weekly or as needed to control symptoms.Disp: 120 mLRfl: 5 levothyroxine (SYNTHROID) 137 mcg tabletTake 1 tablet by mouth once daily. Except none on sundaysDisp: 90 tabletRfl: 4 lisinopril (ZESTRIL) 5 mg tabletTake 1 tablet by mouth once daily.Disp: 90 tabletRfl: 3 rosuvastatin (CRESTOR) 20 mg tabletTake 1 tablet by mouth daily at bedtime.Disp: 90 tabletRfl: 3 triamcinolone acetonide (KENALOG) 0.1 % creamApply to affected areas twice daily as needed for irritation following photodynamic therapy.Disp: 15 gRfl: 1 omega 6-ewi-thp-fish oil (FISH OIL) 10 (more content not included)... [facility] 04-25-2023 Miscellaneous Notes Placed in the mail [employer] insurance forms brought in by patient. Forms placed on Rafa Lebron MS, PA-C desk for completion. Please mail forms to patient in self addressed envelope (attached). documented in this encounter [facility] 04-20-2023 Note HNO ID: [id number] Author: Marry Hernandez RN Service: ? Author Type: Registered Nurse Type: Progress Notes Filed: 04/20/2023 12:57 PM Note Text: PHOTODYNAMIC THERAPY April 20, 2023 Dx: Actinic Keratosis Pt ID verified with patient: Yes Procedure verified against order and with patient: Yes Skin prepped with 70% isopropyl alcohol Yes Area treated: Full face Number of Levulan sticks applied: 1 Lot # [id number] 11/2025 Time before Blue Light exposure: 15 minutes Area treated: Full face Pt exposed to light for 30 minutes Patient reaction during treatment: None, patient tolerated procedure well. Patient reaction after treatment: None, patient tolerated procedure well. Aftercare instructions given. Patient verbalizes understanding. Follow up with Rafa Lebron PA-C . Marry Hernandez RN [facility] 04-20-2023 Instructions Marry Hernandez RN - 04/20/2023 10:33 AM EST After Care Instructions Photodynamic Therapy with Levulan and Blue Light Expected skin changes after PDT: The treated skin will likely turn red and may appear slightly swollen 24-48 h after treatment, but you should not see any blistering. Redness usually peaks one-to-two days after treatment and gets better within a week. Actinic keratosis lesions may not be gone until about four weeks after treatment. The skin may be itchy or change color slightly after treatment, but these changes are temporary. Photosensitivity: Levulan remains in the skin for 48 hours, so further reactions (redness and a tingling or burning sensation) can be caused by light exposure if one is not careful. Therefore, for about 2 days after the treatment, you should take care to protect the treated areas from light. Stay out of strong, direct light. Stay indoors as much as possible. Wear protective clothing and wide-brimmed hats to avoid sunlight when outdoors. Avoid beaches, snow, light colored concrete, or other reflective surfaces. After Care steps for you to do at home: Again, avoid direct light for 48 hours. Gently wash area twice a day with Cetaphil, Neutrogena or other mild cleanser. Do not scrub! After cleansing, use Aquaphor or Vaseline twice a day to keep the area moist and free of crust. Apply the topical steroid ointment that your doctor has prescribed for you (or alternatively, you can use 1% hydrocortisone ointment available at any pharmacy) to the entire treated area, twice a day as needed for 2-4 days, to help decrease redness and irritation. Apply the steroid BEFORE applying Aquaphor ointment, not afterwards. Apply cool compresses as needed for comfort during the first few days. After day 3, gently exfoliate with a soft washcloth and warm water twice a day. Then apply either Aquaphor or Vaseline. To address swelling and redness, you may also take [id number]-[id number] oral medications: Claritin (loratidine) 10 mg in the morning, Benadryl (diphenhydramine) 25-50 mg nightly (may cause drowsiness) and/or Ibuprofen as directed. If you absolutely must go outdoors during the first 48 hours, cover yourself with a broad-brimmed hat and use Neutrogena sensitive skin (chemical free) sunscreen SPF 30, or other titanium-dioxide type of sunscreen, in a thick layer to protect you from sunlight If you have questions or concerns, call the following number(s): [facility] [phone] documented in this encounter [facility] 04-20-2023 History of Presen t illness Narrative PHOTODYNAMIC THERAPY April 20, 2023 Dx: Actinic Keratosis Pt ID verified with patient: Yes Procedure verified against order and with patient: Yes Skin prepped with 70% isopropyl alcohol Yes Area treated: Full face Number of Levulan sticks applied: 1 Lot # [id number] 11/2025 Time before Blue Light exposure: 15 minutes Area treated: Full face Pt exposed to light for 30 minutes Patient reaction during treatment: None, patient tolerated procedure well. Patient reaction after treatment: None, patient tolerated procedure well. Aftercare instructions given. Patient verbalizes understanding. Follow up with SUZANNA Hernandez RN documented in this encounter [facility] 03-16-2023 Note HNO ID: [id number] Author: Armond El, DO Service: ? Author Type: Physician Type: Progress Notes Filed: 03/16/2023 4:28 PM Note Text: [facility] OUTPATIENT VISIT DATE March 16, 2023 PRIMARY CARE PHYSICIAN: Bandar Gra[address] [place] [address] HISTORY OF PRESENT ILLNESS: Mr. Dominguez is a 67 year old male. The patient returns for follow-up due to history of mild LV systolic dysfunction with normalization as well as hypertension, hyperlipidemia, ascending aortic dilatation, obstructive sleep apnea compliant to CPAP mask and mild to moderate mitral regurgitation. He has dyspnea with more extremes of exertion but is not overly active. He denies chest discomfort, orthopnea, paroxysmal nocturnal dyspnea, palpitations, near-syncope or syncope. His accompanies him again today. PLAN AND RECOMMENDATIONS: The patient remained stable without apparent symptoms that would suggest angina or cardiac decompensation. Heart rate, blood pressure and recent cholesterol profile are favorable with not excellent. We have therefore made no additions or changes. Dietary and lifestyle modification was reemphasized to facilitate risk factor reduction. We will look forward to reevaluating him in 6 months time. Vitals: BP 128/76 Pulse (!) 54 Ht 180.3 cm (5' 11 ) Wt 120.7 kg (266 lb) SpO2 97% BMI 37.10 kg/m? Physical Exam Vitals reviewed. Constitutional: General: He is not in acute distress. Appearance: He is well-developed. He is not diaphoretic. HENT: Head: Normocephalic and atraumatic. Right Ear: External ear normal. Left Ear: External ear normal. Nose: Nose normal. Eyes: General: No scleral icterus. Right eye: No discharge. Left eye: No discharge. Pupils: Pupils are equal, round, and reactive to light. Neck: Thyroid: No thyromegaly. Vascular: No JVD. Cardiovascular: Rate and Rhythm: Normal rate and regular rhythm. Heart sounds: No murmur heard. No friction rub. No gallop. Pulmonary: Effort: Pulmonary effort is normal. No respiratory distress. Breath sounds: Normal breath sounds. No wheezing or rales. Abdominal: General: Bowel sounds are normal. Palpations: Abdomen is soft. Musculoskeletal: General: Normal range of motion. Cervical back: Neck supple. Skin: General: Skin is warm and dry. Coloration: Skin is not pale. Neurological: Mental Status: He is alert and oriented to person, place, and time. Cranial Nerves: No cranial nerve deficit. Psychiatric: Mood and Affect: Mood is not anxious or depressed. Behavior: Behavior normal. Thought Content: Thought content normal. Judgment: Judgment normal. Review of Systems Constitutional: Negative for activity change, appetite change, fatigue and unexpected weight change. HENT: Negative for ear pain and trouble swallowing. Eyes: Negative for pain and visual disturbance. Respiratory: Positive for shortness of breath. Negative for chest tightness. Cardiovascular: Negative for chest pain, palpitations and leg swelling. Gastrointestinal: Negative for abdominal pain and blood in stool. Endocrine: Negative for cold intolerance and heat intolerance. Genitourinary: Negative for dysuria, hematuria and scrotal swelling. Musculoskeletal: Negative for arthralgias and myalgias. Skin: Negative for pallor and rash. Allergic/Immunologic: Negative for immunocompromised state. Neurological: Negative for dizziness, syncope and light-headedness. Hematological: Negative for adenopathy. Does not bruise/bleed easily. Psychiatric/Behavioral: Negative for sleep disturbance. The patient is not nervous/anxious. PAST MEDICAL HISTORY Diagnosis Date Ascending aorta dilatation (HCC) Basal cell cancer Decreased peripheral vision of left eye Essential hypertension 07/06/2021 GERD (gastroesophageal reflux disease) Gout Jeffry's thyroiditis with thyroid nodules Mild left ventricular systolic dysfunction Mild pulmonary hypertension (HCC) Mixed hyperlipidemia 11/16/2015 Obesity MAXIMILIAN (obstructive sleep apnea) 10/20/2020 Osteoarthritis Sinus bradycardia PAST SURGICAL HISTORY Procedure Laterality Date COLONOSCOPY 04-04-14 repeat in 10 yrs INT REPAIR SCALP,SYDNI,TRUNK <2.5CM 12-23-10 PAST SURGICAL HISTORY OF left knee PAST SURGICAL HISTORY OF right hammer toe PAST SURGICAL HISTORY OF left hammer toe REM LESION TRUNK,ARM, LEG <0.5 CM 12-23-10 THYROIDECTOMY TOTAL/COMPLETE 12-23-10 Social History Tobacco Use Smoking status: Never Smokeless tobacco: Never Vaping Use Vaping Use: Never used Substance Use Topics Alcohol use: No Drug use: No FAMILY HISTORY Problem Relation Age of Onset Hypertension Mother Diabetes Mother Prostate Cancer Father Cancer Father Stroke Maternal Grandfather Alcohol/Drug Maternal Grandfather Cancer (more content not included)... [facility] 03-16-2023 History of Presen t illness Narrative Images from the original note were not included. [facility] OUTPATIENT VISIT DATE March 16, 2023 PRIMARY CARE PHYSICIAN: Bnadar [address] [place] [address] HISTORY OF PRESENT ILLNESS: Mr. Dominguez is a 67 year old male. The patient returns for follow-up due to history of mild LV systolic dysfunction with normalization as well as hypertension, hyperlipidemia, ascending aortic dilatation, obstructive sleep apnea compliant to CPAP mask and mild to moderate mitral regurgitation. He has dyspnea with more extremes of exertion but is not overly active. He denies chest discomfort, orthopnea, paroxysmal nocturnal dyspnea, palpitations, near-syncope or syncope. His accompanies him again today. PLAN AND RECOMMENDATIONS: The patient remained stable without apparent symptoms that would suggest angina or cardiac decompensation. Heart rate, blood pressure and recent cholesterol profile are favorable with not excellent. We have therefore made no additions or changes. Dietary and lifestyle modification was reemphasized to facilitate risk factor reduction. We will look forward to reevaluating him in 6 months time. Vitals: BP 128/76 Pulse (!) 54 Ht 180.3 cm (5' 11 ) Wt 120.7 kg (266 lb) SpO2 97% BMI 37.10 kg/m Physical Exam Vitals reviewed. Constitutional: General: He is not in acute distress. Appearance: He is well-developed. He is not diaphoretic. HENT: Head: Normocephalic and atraumatic. Right Ear: External ear normal. Left Ear: External ear normal. Nose: Nose normal. Eyes: General: No scleral icterus. Right eye: No discharge. Left eye: No discharge. Pupils: Pupils are equal, round, and reactive to light. Neck: Thyroid: No thyromegaly. Vascular: No JVD. Cardiovascular: Rate and Rhythm: Normal rate and regular rhythm. Heart sounds: No murmur heard. No friction rub. No gallop. Pulmonary: Effort: Pulmonary effort is normal. No respiratory distress. Breath sounds: Normal breath sounds. No wheezing or rales. Abdominal: General: Bowel sounds are normal. Palpations: Abdomen is soft. Musculoskeletal: General: Normal range of motion. Cervical back: Neck supple. Skin: General: Skin is warm and dry. Coloration: Skin is not pale. Neurological: Mental Status: He is alert and oriented to person, place, and time. Cranial Nerves: No cranial nerve deficit. Psychiatric: Mood and Affect: Mood is not anxious or depressed. Behavior: Behavior normal. Thought Content: Thought content normal. Judgment: Judgment normal. Review of Systems Constitutional: Negative for activity change, appetite change, fatigue and unexpected weight change. HENT: Negative for ear pain and trouble swallowing. Eyes: Negative for pain and visual disturbance. Respiratory: Positive for shortness of breath. Negative for chest tightness. Cardiovascular: Negative for chest pain, palpitations and leg swelling. Gastrointestinal: Negative for abdominal pain and blood in stool. Endocrine: Negative for cold intolerance and heat intolerance. Genitourinary: Negative for dysuria, hematuria and scrotal swelling. Musculoskeletal: Negative for arthralgias and myalgias. Skin: Negative for pallor and rash. Allergic/Immunologic: Negative for immunocompromised state. Neurological: Negative for dizziness, syncope and light-headedness. Hematological: Negative for adenopathy. Does not bruise/bleed easily. Psychiatric/Behavioral: Negative for sleep disturbance. The patient is not nervous/anxious. PAST MEDICAL HISTORY Diagnosis Date Ascending aorta dilatation (HCC) Basal cell cancer Decreased peripheral vision of left eye Essential hypertension 07/06/2021 GERD (gastroesophageal reflux disease) Gout Jeffry's thyroiditis with thyroid nodules Mild left ventricular systolic dysfunction Mild pulmonary hypertension (HCC) Mixed hyperlipidemia 11/16/2015 Obesity MAXIMILIAN (obstructive sleep apnea) 10/20/2020 Osteoarthritis Sinus bradycardia PAST SURGICAL HISTORY Procedure Laterality Date COLONOSCOPY 04-04-14 repeat in 10 yrs INT REPAIR SCALP,SYDNI,TRUNK <2.5CM 12-23-10 PAST SURGICAL HISTORY OF left knee PAST SURGICAL HISTORY OF right hammer toe PAST SURGICAL HISTORY OF left hammer toe REM LESION TRUNK,ARM, LEG <0.5 CM 12-23-10 THYROIDECTOMY TOTAL/COMPLETE 12-23-10 Social History Tobacco Use Smoking status: Never Smokeless tobacco: Never Vaping Use Vaping Use: Never used Substance Use Topics Alcohol use: No Drug use: No FAMILY HISTORY Problem Relation Age of Onset Hypertension Mother Diabetes Mother Prostate Cancer Father Cancer Father Stroke Maternal Grandfather Alcohol/Drug Maternal Grandfather Cancer Paternal Grandmother ALLERGIES No Known Allergies CURRENT MEDICATIONS: allopurinol (ZYLOPRIM) 300 mg tablet^Take 1 tablet by mouth once daily.^Disp: 90 tablet^Rfl: 3 ascorbic acid (SUSAN-C ORAL)^Take by mouth.^Disp: ^Rfl: Calcipotriene 0.005 % soln^Apply to to scalp twice daily.^Disp: 60 mL^Rfl: 3 Cholecalciferol, Vitamin D3, 50 mcg (2,000 unit) cap^Take 1 capsule by mouth once daily.^Disp: ^Rfl: CPAP^AutoPAP with humidification set at a range of 5-16 cmH2O. Lifetime supplies. Please fit with Modanisawear under nose FFM. Please provide us download after 4 weeks of use.^Disp: 1 Device^Rfl: 99 Fluocinolone-Shower Cap 0.01 % oil^Apply to affected area of scalp nightly and wash out in the morning.^Disp: 118.28 mL^Rfl: 5 gabapentin (NEURONTIN) 300 mg capsule^TAKE 1 CAPSULE BY MOUTH AFTER ARRIVING HOME FROM WORK THEN 2 CAPSULES AT APPROXIMATELY 7 PM^Disp: 270 capsule^Rfl: 1 Ipratropium [place] (ATROVENT) 21 mcg (0.03 %) nasal spray^Use 2 Sprays in the nose every 12 hours.^Disp: 3.5 mL^Rfl: 5 ketoconazole (NIZORAL) 2 % shampoo^Apply to wet hair, lather, and rinse thoroughly. Use 2-3 times weekly or as needed to control symptoms.^Disp: 120 mL^Rfl: 5 levothyroxine (SYNTHROID) 137 mcg tablet^Take 1 tablet by mouth once daily. Except none on sundays^Disp: 90 tablet^Rfl: 4 lisinopril (ZESTRIL) 5 mg tablet^Take 1 tablet by mouth once daily.^Disp: 90 tablet^Rfl: 3 omega 4-ufz-tem-fish oil (FISH OIL) 100-160-1,000 mg cap^Take by mouth.^Disp: ^Rfl: rosuvastatin (CRESTOR) 20 mg tablet^Take 1 tablet by mouth daily at bedtime.^Disp: 90 tablet^Rfl: 3 triamcinolone acetonide (KENALOG) 0.1 % cream^Apply to affected areas twice daily as needed for irritation following photodynamic therapy.^Disp: 15 g^Rfl: 1 Vitamin E, dl, acetate, (VITAMIN E) 134 mg (200 unit) Capsule^Take by mouth once daily.^Disp: ^Rfl: Armond El DO, FACC, FACOI Fundraising Specialist, [facility]iology Fundraising Specialist, [facility] Cardiac Rehabilitation Fundraising Specialist, [facility] Card[facility] Fundraising Specialist, [facility] Fundraising Specialist, [facility] Ambulatory Cardiology Clinical Skein Bander Profressor of Medicine, [facility] - [facility] Staff Professor Of Mathematics, [facility] Department of Cardiovascular Medicine/[facility] [place], [facility] Please note: This note has been produced using speech recognition software and may contain errors related to that system including cullen, punctuation, spelling, words, gender and phrases that may be inappropriate. documented in this encounter [facility] 03-08-2023 Note HNO ID: [id number] Author: Carroll Anthony APRN.W[employer] BOUND BOX MACHINE HELPER Service: ? Author Type: Nurse Practitioner Type: Progress Notes Filed: 03/08/2023 10:25 AM Note Text: Subjective HPI Nontoxic-appearing male presents urgent care chief complaint insect sting. Patient states he was cleaning out extremity when he was stung 3 times in the lip face region as well as a few times in the arm and back. Presents today for evaluation. States he did take 50 mg of Benadryl prior to arrival. urged him to be seen due to a number of insect stings he received. States overall feels well. Has been stung in the past with no anaphylactic reactions. Denies any nausea vomiting abdominal pain diarrhea itching rash difficulty swallowing difficulty in secretions shortness of breath rapid heart rate or impending doom sensation. Past medical history prescription medication use allergies reviewed. .Patient presents with: Insect Bite: Bee stings on face, arms and back x1 hour PAST MEDICAL HISTORY Diagnosis Date Ascending aorta dilatation (HCC) Basal cell cancer Decreased peripheral vision of left eye Essential hypertension 07/06/2021 GERD (gastroesophageal reflux disease) Gout Jeffry's thyroiditis with thyroid nodules Mild left ventricular systolic dysfunction Mild pulmonary hypertension (HCC) Mixed hyperlipidemia 11/16/2015 Obesity MAXIMILIAN (obstructive sleep apnea) 10/20/2020 Osteoarthritis Sinus bradycardia PAST SURGICAL HISTORY Procedure Laterality Date COLONOSCOPY 04-04-14 repeat in 10 yrs INT REPAIR SCALP,SYDNI,TRUNK <2.5CM 12-23-10 PAST SURGICAL HISTORY OF left knee PAST SURGICAL HISTORY OF right hammer toe PAST SURGICAL HISTORY OF left hammer toe REM LESION TRUNK,ARM, LEG <0.5 CM 12-23-10 THYROIDECTOMY TOTAL/COMPLETE 12-23-10 ALLERGIES Patient has no known allergies. MEDICATIONS allopurinol (ZYLOPRIM) 300 mg tabletTake 1 tablet by mouth once daily.Disp: 90 tabletRfl: 3 triamcinolone acetonide (KENALOG) 0.1 % creamApply to affected areas twice daily as needed for irritation following photodynamic therapy.Disp: 15 gRfl: 1 gabapentin (NEURONTIN) 300 mg capsuleTAKE 1 CAPSULE BY MOUTH AFTER ARRIVING HOME FROM WORK THEN 2 CAPSULES AT APPROXIMATELY 7 PMDisp: 270 capsuleRfl: 1 rosuvastatin (CRESTOR) 20 mg tabletTake 1 tablet by mouth daily at bedtime.Disp: 90 tabletRfl: 3 lisinopril (ZESTRIL) 5 mg tabletTake 1 tablet by mouth once daily.Disp: 90 tabletRfl: 3 levothyroxine (SYNTHROID) 137 mcg tabletTake 1 tablet by mouth once daily. Except none on sundaysDisp: 90 tabletRfl: 4 Fluocinolone-Shower Cap 0.01 % oilApply to affected area of scalp nightly and wash out in the morning.Disp: 118.28 mLRfl: 5 ketoconazole (NIZORAL) 2 % shampooApply to wet hair, lather, and rinse thoroughly. Use 2-3 times weekly or as needed to control symptoms.Disp: 120 mLRfl: 5 Calcipotriene 0.005 % solnApply to to scalp twice daily.Disp: 60 mLRfl: 3 Ipratropium [place] (ATROVENT) 21 mcg (0.03 %) nasal sprayUse 2 Sprays in the nose every 12 hours.Disp: 3.5 mLRfl: 5 Vitamin E, dl, acetate, (VITAMIN E) 134 mg (200 unit) CapsuleTake by mouth once daily.Disp: Rfl: omega 0-rqk-tfz-fish oil (FISH OIL) 100-160-1,000 mg capTake by mouth.Disp: Rfl: ascorbic acid (SUSAN-C ORAL)Take by mouth.Disp: Rfl: CPAPAutoPAP with humidification set at a range of 5-16 cmH2O. Lifetime supplies. Please fit with WhiteSmoke under nose FFM. Please provide us download after 4 weeks of use.Disp: 1 DeviceRfl: 99 Cholecalciferol, Vitamin D3, 50 mcg (2,000 unit) capTake 1 capsule by mouth once daily.Disp: Rfl: FAMILY HISTORY Problem Relation Age of Onset Hypertension Mother Diabetes Mother Prostate Cancer Father Cancer Father Stroke Maternal Grandfather Alcohol/Drug Maternal Grandfather Cancer Paternal Grandmother Social History Tobacco Use Smoking status: Never Smokeless tobacco: Never Vaping Use Vaping Use: Never used Substance Use Topics Alcohol use: No Drug use: No BP 119/76 Pulse 75 Temp 36.7 ?C (98.1 ?F) Resp 18 Wt 117.9 kg (260 lb) SpO2 98% BMI 35.76 kg/m? Review of Systems Constitutional: Negative for chills, fever and malaise/fatigue. HENT: Negative for congestion, ear discharge, ear pain, sinus pain and sore throat. Eyes: Negative for blurred vision, pain, discharge and redness. Respiratory: Negative for cough, hemoptysis, sputum production, shortness of breath, wheezing and stridor. Cardiovascular: Negative for chest pain and palpitations. Gastrointestinal: Negative for abdominal pain, diarrhea, nausea and vomiting. Musculoskeletal: Negative for myalgias. Skin: Negative for itching and rash. Neurological: Negative for dizziness and headaches. Objective Physical Exam Constitutional: General: He is not in acute distress. Appearance: He is not toxic-appearing. HENT: Head: Normocephalic. Nose: Nose normal. Mouth/Throat: Mouth: Mucous membran (more content not included)... [facility] 03-03-2023 Miscellaneous Notes Signed forms faxed back as directed below. Uploaded to patient chart for future reference. DAVID Sears Type of form: Medical Necessity Form received via fax When form is completed, Fax form to [facility] at [phone] Form has been forwarded to Physician Desk: DAVID Wellington documented in this encounter [facility] 01-11-2023 Note HNO ID: [id number] Author: Rafa Lebron PA-C Service: ? Author Type: Physician Skein Bander Type: Progress Notes Filed: 01/11/2023 3:02 PM Note Text: EST PATIENT Chief Complaint: Patient presents with: LESION, SKIN HPI: Lynn Dominguez is a 67 year old male who presents today for:Patient presents with: LESION, SKIN #1: growth Location: right cheek Duration: unknown Symptoms: scaly, brown Current Treatment: none Past Treatment: none #2: growth Location: back Duration: years Symptoms: itchy Current Treatment: none Past Treatment: Capzasin - discontinued due to burning sensation Pertinent History: History of skin cancer or atypical nevi: Yes BCC, left side of nose 2013 Family history of skin cancer: No Organ transplant or immunosuppression: No Past Medical History is reviewed. Medication List is reviewed. ROS: Skin as above. Physical Exam: Barrera skin type: II The patient is a pleasant male in no apparent distress. Alert and oriented x 3. A skin exam performed of the scalp, face, and back is significant for: Head - Anterior (Face) Erythematous papules with gritty adherent scale. Left Upper Back Localized pruritus to medial scapula without primary skin changes. Head - Anterior (Face), Left Flank, Right Flank, Right Upper Back Rondo and brown ?stuck on? verrucous scaly papule with surrounding erythema and hemorrhagic crust. Assessment and Plan: Actinic keratosis Head - Anterior (Face) Discussed etiology, course, prognosis and treatment options Advised field treatment with PDT - patient prefers to schedule in the fall Orders placed Painless PDT order - Head - Anterior (Face) Notalgia paresthetica Left Upper Back Patient did not tolerate Capzasin Advised trial of CeraVe Itch Relief with pramoxine Topical steroid in reserve Inflamed seborrheic keratosis (4) Head - Anterior (Face); Left Flank; Right Flank; Right Upper Back Reassured of benign nature. Patient requests treatment due to irritation and itching. Plan to treat with LN2 at next visit (after returning from vacation) The nature of sun-induced photo-aging and skin cancers is discussed including the ABCDE's of melanoma. Sun avoidance, protective clothing, and the use of SPF 30+ sunscreens is advised. Patient is instructed to perform regular self skin exams. Observe for changing, symptomatic, or new skin lesions and return to dermatology if any lesions of concern are noted. Follow up as noted in plan or as needed. Intake: Joyce Acharya LPN I have reviewed and agree with the Chief Complaint, patient-reported HPI, ROS, and Past Histories independently gathered by the clinical ground crewman mission support and the remaining scribed note accurately describes my personal service to the patient. Rafa Lebron, MS, PARhodaC [facility] 01-11-2023 History of Presen t illness Narrative EST PATIENT Chief Complaint: Patient presents with: LESION, SKIN HPI: Lynn Dominguez is a 67 year old male who presents today for:Patient presents with: LESION, SKIN #1: growth Location: right cheek Duration: unknown Symptoms: scaly, brown Current Treatment: none Past Treatment: none #2: growth Location: back Duration: years Symptoms: itchy Current Treatment: none Past Treatment: Capzasin - discontinued due to burning sensation Pertinent History: History of skin cancer or atypical nevi: Yes BCC, left side of nose 2013 Family history of skin cancer: No Organ transplant or immunosuppression: No Past Medical History is reviewed. Medication List is reviewed. ROS: Skin as above. Physical Exam: Barrera skin type: II The patient is a pleasant male in no apparent distress. Alert and oriented x 3. A skin exam performed of the scalp, face, and back is significant for: Head - Anterior (Face) Erythematous papules with gritty adherent scale. Left Upper Back Localized pruritus to medial scapula without primary skin changes. Head - Anterior (Face), Left Flank, Right Flank, Right Upper Back Rondo and brown stuck on verrucous scaly papule with surrounding erythema and hemorrhagic crust. Assessment and Plan: Actinic keratosis Head - Anterior (Face) Discussed etiology, course, prognosis and treatment options Advised field treatment with PDT - patient prefers to schedule in the fall Orders placed Painless PDT order - Head - Anterior (Face) Notalgia paresthetica Left Upper Back Patient did not tolerate Capzasin Advised trial of CeraVe Itch Relief with pramoxine Topical steroid in reserve Inflamed seborrheic keratosis (4) Head - Anterior (Face); Left Flank; Right Flank; Right Upper Back Reassured of benign nature. Patient requests treatment due to irritation and itching. Plan to treat with LN2 at next visit (after returning from vacation) The nature of sun-induced photo-aging and skin cancers is discussed including the ABCDE's of melanoma. Sun avoidance, protective clothing, and the use of SPF 30+ sunscreens is advised. Patient is instructed to perform regular self skin exams. Observe for changing, symptomatic, or new skin lesions and return to dermatology if any lesions of concern are noted. Follow up as noted in plan or as needed. Intake: Joyce Acharya LPN I have reviewed and agree with the Chief Complaint, patient-reported HPI, ROS, and Past Histories independently gathered by the clinical ground crewman mission support and the remaining scribed note accurately describes my personal service to the patient. Rafa Lebron MS, SUZANNA documented in this encounter [facility] 01-03-2023 Miscellaneous Notes Called and spoke with patient. Patient is scheduled for follow up in June. Per message wait list: No appts loading. RFV annual thyroid cancer follow up (end of Jun or early Jul). [phone]. Template not yet released will post-pone. documented in this encounter [facility] 12-12-2022 Note HNO ID: [id number] Author: Elizabeth Loredo Jr., MD Service: ? Author Type: Physician Type: Progress Notes Filed: 12/12/2022 11:02 AM Note Text: ESTABLISHED PATIENT VISIT CHIEF COMPLAINT: Follow Up HISTORY OF PRESENT ILLNESS: Lynn Dominguez is a 67 year old male, BMI 35.62 kg/m2 with a PMH significant for and per last office visit note of 06/13/22: 1. Obstructive sleep apnea (adult) (pediatric) - ICD9: 327.23, ICD10: G47.33 (primary diagnosis) Patient subjectively and objectively doing well on PAP. Tolerating pressure. AHI controlled. Encouraged compliance. Reminded to clean and replace equipment regularly. Advised not to drive or operate heavy machinery if sleepy. Advised not to drive or operate heavy machinery when sleepy. 2. Restless legs syndrome - ICD9: 333.94, ICD10: G25.81 Stable on gabapentin. Continue dosing as above. SE and ADRs reviewed with pt. Pt reports labs ordered with PCP today. Need to confirm gabapentin still appropriate for most recent Cr Clearance. Await results. PAP data downoad from 09/10-12/08/22 shows nightly use with avg use of 6 hours and 39 minutes. 95% pressure of 9.2 cmH2O. AHI is 0.7. 95% leak is 13.5 LPM. Rare event in which has to wake him due to a mask leak. Patient feels good with the PAP. Only complaint is nelson on face from mask. No issues falling asleep. Going to bed and falling asleep quickly at about 11-1130PM and wakes about 630AM. Finds sleep to be refreshing. Does have some pain on left side of body due to arthritis and side he lies on is the left. Not napping during the day. Avoids naps during the day for fear he will not sleep at night. Even if a rainy day and watching tv, still not falling asleep. RLS remains stable. Not kicking legs. Rarely feels antsy at night, but not having his legs move all night. Currently taking gabapentin 900mg between dinner and bedtime. REVIEW OF SYSTEMS GENERAL:No weight loss, malaise or fevers. HEENT:Negative for frequent or significant headaches, No changes in hearing or vision, no nose bleeds or other nasal problems RESPIRATORY: Negative for cough, wheezing or shortness of breath. CARDIOVASCULAR: Negative for chest pain or palpitations. GASTROINTESTINAL: Negative for abdominal discomfort, blood in stools or black stools or change in bowel habits GENITOURINARY: No history of dysuria, frequency or incontinence MUSCULOSKELETAL: See HPI. NEUROLOGIC:Negative for focal numbness or weakness, headaches and dizziness or syncope, vision changes, speech/languag changes - EXCEPT that as per HPI above. SKIN:Negative for lesions, rash, and itching. LAB/IMAGING: Those performed since patient's last visit have been reviewed. WBC (k/uL) Date Value 11/09/2022 8.89 RBC (m/uL) Date Value 11/09/2022 4.67 Hemoglobin (g/dL) Date Value 11/09/2022 13.3 Hematocrit (%) Date Value 11/09/2022 41.9 MCV (fL) Date Value 11/09/2022 89.7 MCH (pg) Date Value 11/09/2022 28.5 MCHC (g/dL) Date Value 11/09/2022 31.7 RDW-CV (%) Date Value 11/09/2022 13.2 Platelet Count (k/uL) Date Value 11/09/2022 233 MPV (fL) Date Value 11/09/2022 11.4 Glucose (mg/dL) Date Value 06/15/2022 98 BUN (mg/dL) Date Value 06/15/2022 21 Creatinine (mg/dL) Date Value 06/15/2022 1.29 (H) Sodium (mmol/L) Date Value 06/15/2022 138 Potassium (mmol/L) Date Value 06/15/2022 4.4 Chloride (mmol/L) Date Value 06/15/2022 103 CO2 (mmol/L) Date Value 06/15/2022 28 Protein, Total (g/dL) Date Value 06/15/2022 6.6 Albumin (g/dL) Date Value 06/15/2022 4.2 Calcium, Total (mg/dL) Date Value 06/15/2022 9.6 Alkaline Phosphatase (U/L) Date Value 06/15/2022 78 Bilirubin, Total (mg/dL) Date Value 06/15/2022 0.5 AST (U/L) Date Value 06/15/2022 18 ALT (U/L) Date Value 06/15/2022 16 Hep C Antibody IA (no units) Date Value 11/16/2015 Negative MEDICATIONS: gabapentin (NEURONTIN) 300 mg capsuleTAKE 1 CAPSULE BY MOUTH AFTER ARRIVING HOME FROM WORK THEN 2 CAPSULES AT APPROXIMATELY 7 PMDisp: 270 capsuleRfl: 0 allopurinol (ZYLOPRIM) 300 mg tabletTake 1 tablet by mouth once daily.Disp: 30 tabletRfl: 2 rosuvastatin (CRESTOR) 20 mg tabletTake 1 tablet by mouth daily at bedtime.Disp: 90 tabletRfl: 3 lisinopril (ZESTRIL) 5 mg tabletTake 1 tablet by mouth once daily.Disp: 90 tabletRfl: 3 levothyroxine (SYNTHROID) 137 mcg tabletTake 1 tablet by mouth once daily. Except none on sundaysDisp: 90 tabletRfl: 4 Fluocinolone-Shower Cap 0.01 % oilApply to affected area of scalp nightly and wash out in the morning.Disp: 118.28 mLRfl: 5 ketoconazole (NIZORAL) 2 % shampooApply to wet hair, lather, and rinse thoroughly. Use 2-3 times weekly or as needed to control symptoms.Disp: 120 mLRfl: 5 Calcipotriene 0.005 % solnApply to to scalp twice daily.Disp: 60 mLRfl: 3 Ipratropium [place] (ATROVENT) 21 mcg (0.03 %) nasal sprayUse 2 Sprays in the nose every 12 hour (more content not included)... [facility] 12-12-2022 Instructions Elizabeth Loredo Jr., MD - 12/12/2022 10:49 AM EDT Your most recent body mass index (BMI) that we have on record is 35.62 kg/m2. Obstructive sleep apnea (MAXIMILIAN) worsens with an increase in weight; reduction in weight may improve or resolve your MAXIMILIAN. If you are not already seeking treatment, there are resources available at the [facility] such as a nutrition consultation or referral to weight management programs at our [facility]. Please let us know if we can assist with a referral. documented in this encounter [facility] 12-12-2022 Note HNO ID: [id number] Author: Bandar Graf PA-C Service: ? Author Type: Physician Skein Bander Type: Progress Notes Filed: 12/13/2022 6:34 PM Note Text: 67 year old male with c/o 6 month follow up. Last visit with me was 06/19/2020 virtual. No current concerns. wants him to lose weight I71.21 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) (primary encounter diagnosis) I51.89 Mild left ventricular systolic dysfunction I27.20 Mild pulmonary hypertension (HCC) G47.33 MAXIMILIAN (obstructive sleep apnea) I10 Essential hypertension E78.2 Mixed hyperlipidemia N28.9 Renal insufficiency Cardiovascular interval hx: 09/26/2022 echo LV size and LVSF WNL, EF 52 +/- 5% RV size and RVSF WNL No significant valvular abnormalities Aorta 4.3 cm unchanged from 08/02/2021 Current meds: Rosuvastatin 20mg HS Lisinopril 5mg daily Autopap 5-16cm H2O Use of NTG: N/A Chest pain, arm, jaw pain, neck, or upper back pain suggestive of angina: No. SOB: Yes, working on home products. Worked in [employer]. Sand dust. Dyspnea with exertion: No orthopnea: No Cough : No, a little in morning r/t to nasal drainage, CPAP racing or irregular heartbeats: No palpitations: No syncopal sx: No Headache: No Unexplainable fatigue No Leg swelling: No Nausea: No diaphoresis: Yes with working around yard. Heartburn: No Claudication: No, chronic leg cramp on right Smoking: No Following Low cholesterol, high fiber diet? A little If on statin: muscle aches? No If on statin: GI sx or diarrhea? No Additional history none. Lab review: Component Latest Ref Rng AND Units 05/14/2018 05/06/2019 07/13/2021 06/15/2022 11/09/2022 WBC 3.70 - 11.00 k/uL 6.82 8.89 RBC 4.20 - 6.00 m/uL 4.95 4.67 Hemoglobin 13.0 - 17.0 g/dL 13.9 13.3 Hematocrit 39.0 - 51.0 % 44.8 41.9 MCV 80.0 - 100.0 fL 90.5 89.7 MCH 26.0 - 34.0 pg 28.1 28.5 MCHC 30.5 - 36.0 g/dL 31.0 31.7 RDW-CV 11.5 - 15.0 % 13.7 13.2 Platelet Count 150 - 400 k/uL 252 233 MPV 9.0 - 12.7 fL 11.4 11.4 Neut% % 54.0 68.1 Abs Neut (ANC) 1.45 - 7.50 k/uL 3.67 6.05 Lymph% % 34.8 20.6 Abs Lymph 1.00 - 4.00 k/uL 2.37 1.83 Benton% % 6.9 7.5 Abs Benton <0.87 k/uL 0.47 0.67 Eosin% % 3.4 2.8 Abs Eosin <0.46 k/uL 0.23 0.25 Baso% % 0.9 0.7 Abs Baso <0.11 k/uL 0.06 0.06 Immature Gran % % 0.3 IMMATURE GRANS (ABS) <0.10 k/uL 0.03 NRBC /100 WBC 0.0 Absolute nRBC <0.01 k/uL <0.01 <0.01 DTYPE Auto Nucleated Reds 0 /100 WBC 0.0 Diff Type Auto Diff Protein, Total 6.3 - 8.0 g/dL 6.9 6.6 Albumin 3.9 - 4.9 g/dL 4.1 4.2 Calcium 8.5 - 10.2 mg/dL 9.1 9.6 Bilirubin, Total 0.2 - 1.3 mg/dL 0.3 0.5 Alkaline Phosphatase 38 - 113 U/L 82 78 AST 14 - 40 U/L 25 18 Glucose 74 - 99 mg/dL 82 98 BUN 9 - 24 mg/dL 18 21 Creatinine 0.73 - 1.22 mg/dL 1.21 1.29 (H) Sodium 136 - 144 mmol/L 139 138 Potassium 3.7 - 5.1 mmol/L 4.5 4.4 Chloride 97 - 105 mmol/L 103 103 CO2 22 - 30 mmol/L 22 28 Anion Gap 9 - 18 mmol/L 14 7 (L) ALT 10 - 54 U/L 24 16 eGFR- >60 eGFR-All Other Races . >60 eGFR >=60 mL/min/1.73mA? 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 No. Thyroid pain: No. Mass effect: No. Change in energy level/ fatigue? No. Sleep disturbance ?No. Temperature Intolerance: cold No, hot, sweats at night. In females, menstrual cycle issues? N/A, If yes: Change in bowel habits? No. If yes: Constipation? No. If yes: Diarrhea? No. If yes: Weight changes?No. Memory issues: No. Diaphoresis: Yes, with exercise Numbness, tingling none Radiological imaging with contrast dyes within the last 3 months? No. History of radiation exposure to head or neck area? No. Change in hair or skin? No. If yes: Other symptoms: Last 2 Encounter Wt Readings: Date: Wt: 11/09/2022 116.6 kg (257 lb) 09/14/2022 119.9 kg (264 lb 6.4 oz) Last thyroid labs: TSH Date Value 06/15/2022 2.110 mIU/L 05/31/2021 1.720 uU/mL 06/01/2020 1.130 uU/mL Last 2 Encounter Wt Readings: Date: Wt: 11/09/2022 116.6 kg (257 lb) 09/14/2022 119.9 kg (264 lb 6.4 oz) E66.9 Obesity, Class II, BMI 35-39.9 Vitals 09/14/2022 11/09/2022 11/09/2022 12/12/2022 12/12/2022 WEIGHT in POUNDS 264 lb 6.4 oz 257 lb 259 lb 259 lb WEIGHT in KILOGRAMS 119.931 kg 116.574 kg 117.482 kg 117.482 kg G25.81 Restless legs syndrome Current medications: Gabapentin 300mg afternoon, 600mg HS Symptoms well controlled M54.50, G89.29 Chronic midline low back pain without sciatica Doing well Has been remodeling at home M10.9 Gout with ma (more content not included)... [facility] 12-12-2022 History of Presen t illness Narrative ESTABLISHED PATIENT VISIT CHIEF COMPLAINT: Follow Up HISTORY OF PRESENT ILLNESS: Lynn Dominguez is a 67 year old male, BMI 35.62 kg/m2 with a PMH significant for and per last office visit note of 06/13/22: 1. Obstructive sleep apnea (adult) (pediatric) - ICD9: 327.23, ICD10: G47.33 (primary diagnosis) Patient subjectively and objectively doing well on PAP. Tolerating pressure. AHI controlled. Encouraged compliance. Reminded to clean and replace equipment regularly. Advised not to drive or operate heavy machinery if sleepy. Advised not to drive or operate heavy machinery when sleepy. 2. Restless legs syndrome - ICD9: 333.94, ICD10: G25.81 Stable on gabapentin. Continue dosing as above. SE and ADRs reviewed with pt. Pt reports labs ordered with PCP today. Need to confirm gabapentin still appropriate for most recent Cr Clearance. Await results. PAP data downoad from 09/10-12/08/22 shows nightly use with avg use of 6 hours and 39 minutes. 95% pressure of 9.2 cmH2O. AHI is 0.7. 95% leak is 13.5 LPM. Rare event in which has to wake him due to a mask leak. Patient feels good with the PAP. Only complaint is nelson on face from mask. No issues falling asleep. Going to bed and falling asleep quickly at about 11-1130PM and wakes about 630AM. Finds sleep to be refreshing. Does have some pain on left side of body due to arthritis and side he lies on is the left. Not napping during the day. Avoids naps during the day for fear he will not sleep at night. Even if a rainy day and watching tv, still not falling asleep. RLS remains stable. Not kicking legs. Rarely feels antsy at night, but not having his legs move all night. Currently taking gabapentin 900mg between dinner and bedtime. REVIEW OF SYSTEMS GENERAL:No weight loss, malaise or fevers. HEENT:Negative for frequent or significant headaches, No changes in hearing or vision, no nose bleeds or other nasal problems RESPIRATORY: Negative for cough, wheezing or shortness of breath. CARDIOVASCULAR: Negative for chest pain or palpitations. GASTROINTESTINAL: Negative for abdominal discomfort, blood in stools or black stools or change in bowel habits GENITOURINARY: No history of dysuria, frequency or incontinence MUSCULOSKELETAL: See HPI. NEUROLOGIC:Negative for focal numbness or weakness, headaches and dizziness or syncope, vision changes, speech/languag changes - EXCEPT that as per HPI above. SKIN:Negative for lesions, rash, and itching. LAB/IMAGING: Those performed since patient's last visit have been reviewed. WBC (k/uL) Date Value 11/09/2022 8.89 RBC (m/uL) Date Value 11/09/2022 4.67 Hemoglobin (g/dL) Date Value 11/09/2022 13.3 Hematocrit (%) Date Value 11/09/2022 41.9 MCV (fL) Date Value 11/09/2022 89.7 MCH (pg) Date Value 11/09/2022 28.5 MCHC (g/dL) Date Value 11/09/2022 31.7 RDW-CV (%) Date Value 11/09/2022 13.2 Platelet Count (k/uL) Date Value 11/09/2022 233 MPV (fL) Date Value 11/09/2022 11.4 Glucose (mg/dL) Date Value 06/15/2022 98 BUN (mg/dL) Date Value 06/15/2022 21 Creatinine (mg/dL) Date Value 06/15/2022 1.29 (H) Sodium (mmol/L) Date Value 06/15/2022 138 Potassium (mmol/L) Date Value 06/15/2022 4.4 Chloride (mmol/L) Date Value 06/15/2022 103 CO2 (mmol/L) Date Value 06/15/2022 28 Protein, Total (g/dL) Date Value 06/15/2022 6.6 Albumin (g/dL) Date Value 06/15/2022 4.2 Calcium, Total (mg/dL) Date Value 06/15/2022 9.6 Alkaline Phosphatase (U/L) Date Value 06/15/2022 78 Bilirubin, Total (mg/dL) Date Value 06/15/2022 0.5 AST (U/L) Date Value 06/15/2022 18 ALT (U/L) Date Value 06/15/2022 16 Hep C Antibody IA (no units) Date Value 11/16/2015 Negative MEDICATIONS: gabapentin (NEURONTIN) 300 mg capsule^TAKE 1 CAPSULE BY MOUTH AFTER ARRIVING HOME FROM WORK THEN 2 CAPSULES AT APPROXIMATELY 7 PM^Disp: 270 capsule^Rfl: 0 allopurinol (ZYLOPRIM) 300 mg tablet^Take 1 tablet by mouth once daily.^Disp: 30 tablet^Rfl: 2 rosuvastatin (CRESTOR) 20 mg tablet^Take 1 tablet by mouth daily at bedtime.^Disp: 90 tablet^Rfl: 3 lisinopril (ZESTRIL) 5 mg tablet^Take 1 tablet by mouth once daily.^Disp: 90 tablet^Rfl: 3 levothyroxine (SYNTHROID) 137 mcg tablet^Take 1 tablet by mouth once daily. Except none on sundays^Disp: 90 tablet^Rfl: 4 Fluocinolone-Shower Cap 0.01 % oil^Apply to affected area of scalp nightly and wash out in the morning.^Disp: 118.28 mL^Rfl: 5 ketoconazole (NIZORAL) 2 % shampoo^Apply to wet hair, lather, and rinse thoroughly. Use 2-3 times weekly or as needed to control symptoms.^Disp: 120 mL^Rfl: 5 Calcipotriene 0.005 % soln^Apply to to scalp twice daily.^Disp: 60 mL^Rfl: 3 Ipratropium [place] (ATROVENT) 21 mcg (0.03 %) nasal spray^Use 2 Sprays in the nose every 12 hours.^Disp: 3.5 mL^Rfl: 5 Vitamin E, dl, acetate, (VITAMIN E) 134 mg (200 unit) Capsule^Take by mouth once daily.^Disp: ^Rfl: omega 4-ynq-xul-fish oil (FISH OIL) 100-160-1,000 mg cap^Take by mouth.^Disp: ^Rfl: ascorbic acid (SUSAN-C ORAL)^Take by mouth.^Disp: ^Rfl: CPAP^AutoPAP with humidification set at a range of 5-16 cmH2O. Lifetime supplies. Please fit with WhiteSmoke under nose FFM. Please provide us download after 4 weeks of use.^Disp: 1 Device^Rfl: 99 Cholecalciferol, Vitamin D3, 50 mcg (2,000 unit) cap^Take 1 capsule by mouth once daily.^Disp: ^Rfl: HISTORIES PAST MEDICAL HISTORY Diagnosis Date Ascending aorta dilatation (HCC) Basal cell cancer Decreased peripheral vision of left eye Essential hypertension 07/06/2021 GERD (gastroesophageal reflux disease) Gout Jeffry's thyroiditis with thyroid nodules Mild left ventricular systolic dysfunction Mild pulmonary hypertension (HCC) Mixed hyperlipidemia 11/16/2015 Obesity MAXIMILIAN (obstructive sleep apnea) 10/20/2020 Osteoarthritis Sinus bradycardia FAMILY HISTORY Problem Relation Age of Onset Hypertension Mother Diabetes Mother Prostate Cancer Father Cancer Father Stroke Maternal Grandfather Alcohol/Drug Maternal Grandfather Cancer Paternal Grandmother SOCIAL HISTORY Social History Tobacco Use Smoking status: Never Smokeless tobacco: Never Vaping Use Vaping Use: Never used Substance Use Topics Alcohol use: No Drug use: No PHYSICAL EXAMINATION Pulse (!) 52 Temp 36.6 C (97.9 F) Resp 16 Wt 117.5 kg (259 lb) SpO2 96% BMI 35.62 kg/m GENERAL EXAM: General appearance: NAD, pleasant. HEENT: NC/AT, nasal congestion absent, no oral lesions, membranes moist. Lungs: CTA bilaterally. CV: RRR nl S1, S2 NEUROLOGICAL EXAM: General: Awake, alert, oriented x3 (person,place,time), speech fluent, no dysarthria; comprehension, naming, repetition intact. CN: PERRL, EOMI and without nystagmus, VFF to confrontation, facial sensation and strength are normal and symmetric, hearing is intact, palate and tongue movements are intact and symmetric. SCM and trapezius strength normal. Motor: Normal tone, bulk and strength (5/5) bilaterally (throughout extremities x4). Coordination: FNF, LOLI, HTS intact. No tremors. Sensation: Light touch intact throughout. No evidence of neglect. Gait: Stable with normal stride and arm swing. Assessment and Plan: ASSESSMENT/PLAN: 1. MAXIMILIAN (obstructive sleep apnea) - ICD9: 327.23, ICD10: G47.33 (primary diagnosis) Patient doing well both subjectively and objectively with PAP with perceived benefit. No complaints with PAP therapy. Encouraged compliance. Reminded to clean and replace equipment regularly. Advised pt not to drive or operate heavy machinery if sleepy. 2. Restless legs syndrome - ICD9: 333.94, ICD10: G25.81 Stable on current gabapentin dosing. No changes at this time. Refills provided. Renal function ok for dosing. 3. Class 2 obesity with body mass index (BMI) of 35.0 to 35.9 in adult, unspecified obesity type, unspecified whether serious comorbidity present - ICD9: 278.00, V85.35, ICD10: E66.9, Z68.35 Encouraged weight loss. Elizabeth Loredo MD Medical Decision Making: Problems: Moderate: 2+ stable chronic illnesses Data: Unique test result(s) reviewed: 2 Risk: Moderate: Drug management Medical Decision Making Level: 4 - Moderate PDMP website checked and validated. All prescriptions have been APPROPRIATELY filled. No suspicious activity was identified. 12/12/2022 by Elizabeth Loredo MD documented in this encounter [facility] 12-12-2022 History of Presen t illness Narrative 67 year old male with c/o 6 month follow up. Last visit with me was 06/19/2020 virtual. No current concerns. wants him to lose weight I71.21 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) (primary encounter diagnosis) I51.89 Mild left ventricular systolic dysfunction I27.20 Mild pulmonary hypertension (HCC) G47.33 MAXIMILIAN (obstructive sleep apnea) I10 Essential hypertension E78.2 Mixed hyperlipidemia N28.9 Renal insufficiency Cardiovascular interval hx: 09/26/2022 echo LV size and LVSF WNL, EF 52 +/- 5% RV size and RVSF WNL No significant valvular abnormalities Aorta 4.3 cm unchanged from 08/02/2021 Current meds: Rosuvastatin 20mg HS Lisinopril 5mg daily Autopap 5-16cm H2O Use of NTG: N/A Chest pain, arm, jaw pain, neck, or upper back pain suggestive of angina: No. SOB: Yes, working on home products. Worked in [employer]. Sand dust. Dyspnea with exertion: No orthopnea: No Cough : No, a little in morning r/t to nasal drainage, CPAP racing or irregular heartbeats: No palpitations: No syncopal sx: No Headache: No Unexplainable fatigue No Leg swelling: No Nausea: No diaphoresis: Yes with working around yard. Heartburn: No Claudication: No, chronic leg cramp on right Smoking: No Following Low cholesterol, high fiber diet? A little If on statin: muscle aches? No If on statin: GI sx or diarrhea? No Additional history none. Lab review: Component Latest Ref Rng & Units 05/14/2018 05/06/2019 07/13/2021 06/15/2022 11/09/2022 WBC 3.70 - 11.00 k/uL 6.82 8.89 RBC 4.20 - 6.00 m/uL 4.95 4.67 Hemoglobin 13.0 - 17.0 g/dL 13.9 13.3 Hematocrit 39.0 - 51.0 % 44.8 41.9 MCV 80.0 - 100.0 fL 90.5 89.7 MCH 26.0 - 34.0 pg 28.1 28.5 MCHC 30.5 - 36.0 g/dL 31.0 31.7 RDW-CV 11.5 - 15.0 % 13.7 13.2 Platelet Count 150 - 400 k/uL 252 233 MPV 9.0 - 12.7 fL 11.4 11.4 Neut% % 54.0 68.1 Abs Neut (ANC) 1.45 - 7.50 k/uL 3.67 6.05 Lymph% % 34.8 20.6 Abs Lymph 1.00 - 4.00 k/uL 2.37 1.83 Benton% % 6.9 7.5 Abs Benton <0.87 k/uL 0.47 0.67 Eosin% % 3.4 2.8 Abs Eosin <0.46 k/uL 0.23 0.25 Baso% % 0.9 0.7 Abs Baso <0.11 k/uL 0.06 0.06 Immature Gran % % 0.3 IMMATURE GRANS (ABS) <0.10 k/uL 0.03 NRBC /100 WBC 0.0 Absolute nRBC <0.01 k/uL <0.01 <0.01 DTYPE Auto Nucleated Reds 0 /100 WBC 0.0 Diff Type Auto Diff Protein, Total 6.3 - 8.0 g/dL 6.9 6.6 Albumin 3.9 - 4.9 g/dL 4.1 4.2 Calcium 8.5 - 10.2 mg/dL 9.1 9.6 Bilirubin, Total 0.2 - 1.3 mg/dL 0.3 0.5 Alkaline Phosphatase 38 - 113 U/L 82 78 AST 14 - 40 U/L 25 18 Glucose 74 - 99 mg/dL 82 98 BUN 9 - 24 mg/dL 18 21 Creatinine 0.73 - 1.22 mg/dL 1.21 1.29 (H) Sodium 136 - 144 mmol/L 139 138 Potassium 3.7 - 5.1 mmol/L 4.5 4.4 Chloride 97 - 105 mmol/L 103 103 CO2 22 - 30 mmol/L 22 28 Anion Gap 9 - 18 mmol/L 14 7 (L) ALT 10 - 54 U/L 24 16 eGFR- >60 eGFR-All Other Races . 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 No. Thyroid pain: No. Mass effect: No. Change in energy level/ fatigue? No. Sleep disturbance ?No. Temperature Intolerance: cold No, hot, sweats at night. In females, menstrual cycle issues? N/A, If yes: Change in bowel habits? No. If yes: Constipation? No. If yes: Diarrhea? No. If yes: Weight changes?No. Memory issues: No. Diaphoresis: Yes, with exercise Numbness, tingling none Radiological imaging with contrast dyes within the last 3 months? No. History of radiation exposure to head or neck area? No. Change in hair or skin? No. If yes: Other symptoms: Last 2 Encounter Wt Readings: Date: Wt: 11/09/2022 116.6 kg (257 lb) 09/14/2022 119.9 kg (264 lb 6.4 oz) Last thyroid labs: TSH Date Value 06/15/2022 2.110 mIU/L 05/31/2021 1.720 uU/mL 06/01/2020 1.130 uU/mL Last 2 Encounter Wt Readings: Date: Wt: 11/09/2022 116.6 kg (257 lb) 09/14/2022 119.9 kg (264 lb 6.4 oz) E66.9 Obesity, Class II, BMI 35-39.9 Vitals 09/14/2022 11/09/2022 11/09/2022 12/12/2022 12/12/2022 WEIGHT in POUNDS 264 lb 6.4 oz 257 lb 259 lb 259 lb WEIGHT in KILOGRAMS 119.931 kg 116.574 kg 117.482 kg 117.482 kg G25.81 Restless legs syndrome Current medications: Gabapentin 300mg afternoon, 600mg HS Symptoms well controlled M54.50, G89.29 Chronic midline low back pain without sciatica Doing well Has been remodeling at home M10.9 Gout with manifestations 11/09/2022 gout episode reviewed by Casey Perales PA-C: prednisone 40-10 over 12 days Component Latest Ref Rng & Units 06/01/2020 06/15/2022 11/09/2022 Uric Acid, Diane 3.5 - 7.2 mg/dL Uric Acid 4.0 - 8.1 mg/dL 5.3 6.4 3.8 (L) R97.20 Elevated PSA Z80.42 Family history of prostate cancer in father Z12.5 Screening for prostate cancer Urine flow: stops and starts, some hesitancy. Nocturia x 2. PSA (ng/mL) Date Value 06/21/2022 6.33 07/09/2018 2.94 06/28/2016 2.30 11/16/2015 3.10 PSA Screening (ng/mL) Date Value 06/15/2022 4.18 05/13/2013 1.99 G47.00 Insomnia, unspecified type Better since long term, Also improved with CPAP HISTORIES FAMILY HISTORY Problem Relation Age of Onset Hypertension Mother Diabetes Mother Prostate Cancer Father Cancer Father Stroke Maternal Grandfather Alcohol/Drug Maternal Grandfather Cancer Paternal Grandmother PAST MEDICAL HISTORY Diagnosis Date Ascending aorta dilatation (HCC) Basal cell cancer Decreased peripheral vision of left eye Essential hypertension 07/06/2021 GERD (gastroesophageal reflux disease) Gout Jeffry's thyroiditis with thyroid nodules Mild left ventricular systolic dysfunction Mild pulmonary hypertension (HCC) Mixed hyperlipidemia 11/16/2015 Obesity MAXIMILIAN (obstructive sleep apnea) 10/20/2020 Osteoarthritis Sinus bradycardia PAST SURGICAL HISTORY Procedure Laterality Date COLONOSCOPY 04-04-14 repeat in 10 yrs INT REPAIR SCALP,SYDNI,TRUNK <2.5CM 12-23-10 PAST SURGICAL HISTORY OF left knee PAST SURGICAL HISTORY OF right hammer toe PAST SURGICAL HISTORY OF left hammer toe REM LESION TRUNK,ARM, LEG <0.5 CM 12-23-10 THYROIDECTOMY TOTAL/COMPLETE 12-23-10 Social History Tobacco Use Smoking status: Never Smokeless tobacco: Never Vaping Use Vaping Use: Never used Substance Use Topics Alcohol use: No Drug use: No ACTIVE PROBLEM LIST Gout Tinnitus Hurthle Cell Carcinoma of Thyroid (Hcc) Skin Cancer of Nose Family History of Prostate Cancer in Father Mixed Hyperlipidemia Chronic Midline Low Back Pain Without Sciatica Obesity, Class II, Bmi 35-39.9 Post-Surgical Hypothyroidism Mild Left Ventricular Systolic Dysfunction Insomnia Maximilian (Obstructive Sleep Apnea) Restless Legs Syndrome Sinus Bradycardia Aneurysm of Ascending Aorta Without Rupture (Hcc) Mild Pulmonary Hypertension (Hcc) Essential Hypertension Current Outpatient Medications Medication Sig Dispense Refill gabapentin (NEURONTIN) 300 mg capsule TAKE 1 CAPSULE BY MOUTH AFTER ARRIVING HOME FROM WORK THEN 2 CAPSULES AT APPROXIMATELY 7 PM 270 capsule 0 allopurinol (ZYLOPRIM) 300 mg tablet Take 1 tablet by mouth once daily. 30 tablet 2 rosuvastatin (CRESTOR) 20 mg tablet Take 1 tablet by mouth daily at bedtime. 90 tablet 3 lisinopril (ZESTRIL) 5 mg tablet Take 1 tablet by mouth once daily. 90 tablet 3 levothyroxine (SYNTHROID) 137 mcg tablet Take 1 tablet by mouth once daily. Except none on sundays 90 tablet 4 Fluocinolone-Shower Cap 0.01 % oil Apply to affected area of scalp nightly and wash out in the morning. 118.28 mL 5 ketoconazole (NIZORAL) 2 % shampoo Apply to wet hair, lather, and rinse thoroughly. Use 2-3 times weekly or as needed to control symptoms. 120 mL 5 Calcipotriene 0.005 % soln Apply to to scalp twice daily. 60 mL 3 Ipratropium [place] (ATROVENT) 21 mcg (0.03 %) nasal spray Use 2 Sprays in the nose every 12 hours. 3.5 mL 5 Vitamin E, dl, acetate, (VITAMIN E) 134 mg (200 unit) Capsule Take by mouth once daily. (Patient not taking: Reported on 10/28/2022) omega 8-eet-noz-fish oil (FISH OIL) 100-160-1,000 mg cap Take by mouth. ascorbic acid (SUSAN-C ORAL) Take by mouth. CPAP AutoPAP with humidification set at a range of 5-16 cmH2O. Lifetime supplies. Please fit with [employer] under nose FFM. Please provide us download after 4 weeks of use. 1 Device 99 Cholecalciferol, Vitamin D3, 50 mcg (2,000 unit) cap Take 1 capsule by mouth once daily. Current Facility-Administered Medications Medication Dose Route Frequency Provider Last Rate Last Admin perflutren lipid microspheres 1.3 mL in NaCl (PF) 0.9% 10 mL injection (DEFINITY) INTRAVENOUS DIRECTED PRN Iban Chin APRN.[employer] MACHINE HELPER sodium chloride 0.9 % (flush) 10 mL (BD POSIFLUSH) 10 mL INTRAVENOUS DIRECTED PRN Iban Chin, LIANG.W[employer]OX MACHINE HELPER SHINGRIX VACCINE(1 of 2) Never done ADVANCE DIRECTIVE DISCUSSION Never done DEPRESSION ASSESSMENT Never done EXAM: BP 128/72 Pulse 61 Resp 16 Wt 117.5 kg (259 lb) SpO2 98% BMI 35.62 kg/m Pleasant obese man in no acute distress. Alert and oriented all spheres. Normal affect and cognition. Speech normal. No deficits to learning or comprehension. Skin warm, dry, pink to lips and nailbeds. Normal turgor. Respirations regular and unlabored. HEENT: NCAT. No scleral icterus or conjunctival injection. TM's clear. Nose and oropharynx free from injection or lesion. Oral membranes moist and pink. No cervical lymph nodes. Thyroid non-tender, no masses, or enlargement. Carotids pulses 2+/4+ without bruits. No JVD with HOB at 30 degrees. Chest is normal shape. Lungs are clear to all spring with good air exchange through out. HRRR without murmur or gallop. No lifts, heaves, or rubs. Extrem: no clubbing or cyanosis. Edema: none. Extremities are warm and pink with prompt capillary refill. ASSESSMENT/PLAN: 1. 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) - ICD9: 441.2, ICD10: I71.21 (primary diagnosis) Stable over 2 years, follows with cardiology 2. Mild left ventricular systolic dysfunction - ICD9: 429.9, ICD10: I51.89 resolved 3. Mild pulmonary hypertension (HCC) - ICD9: 416.8, ICD10: I27.20 4. MAXIMILIAN (obstructive sleep apnea) - ICD9: 327.23, ICD10: G47.33 compliant 5. Essential hypertension - ICD9: 401.9, ICD10: I10 - Controlled - Continue current medications - Recommend home blood pressure monitoring, to bring results to next visit - Encouraged sodium restriction, DASH or Mediterranean diet - Recommend regular aerobic exercise - CBC + DIFF - COMP METABOLIC PANEL 6. Mixed hyperlipidemia - ICD9: 272.2, ICD10: E78.2 - Controlled - Continue current medications - Counseled on healthy diet and regular exercise - Discussed need for and benefit of weight loss. BMI 35.62 kg/(m^2) - COMP METABOLIC PANEL - LIPID PANEL BASIC 7. Renal insufficiency - ICD9: 593.9, ICD10: N28.9 Stable Push fluids daily and recheck 8. Post-surgical hypothyroidism - ICD9: 244.0, ICD10: E89.0 - Instructed patient on importance of taking on an empty stomach either first thing in the morning or at bedtime. 9. Obesity, Class II, BMI 35-39.9 - ICD9: 278.00, ICD10: E66.9 Weight decreasing - Behavioral intervention 10. Restless legs syndrome - ICD9: 333.94, ICD10: G25.81 Well controlled on gabapentin 11. 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 Gout with manifestations - ICD9: 274.89, ICD10: M10.9 No recent sx 14. Elevated PSA - ICD9: 790.93, ICD10: R97.20 Recheck labs 15. Insomnia, unspecified type - ICD9: 780.52, ICD10: G47.00 Resolved with CPAP 16. Family history of prostate cancer in father - ICD9: V16.42, ICD10: Z80.42 Continue annual monitoring 17. Screening for prostate cancer - ICD9: V76.44, ICD10: Z12.5 - Risks/benefits of prostate cancer screening discussed. screening PSA ordered F/u Bandar Graf PA-C documented in this encounter [facility] 11-10-2022 Miscellaneous Notes Patient's notified and voiced understanding. Maryuri Wolf MA Let patient know that uric acid level is actually okay. But in acute gout flare ups, we sometimes see a falsely low uric acid level. Therefore I want him to continue the current tx plan and let us know if not improving. documented in this encounter [facility] 11-09-2022 Note HNO ID: [id number] Author: Casey Perales PA-C Service: ? Author Type: Physician Skein Bander Type: Progress Notes Filed: 11/09/2022 10:24 AM Note Text: Chief Complaint Patient presents with: Pain (foot): Left ankle HPI Lnyn Dominguez is a 67 year old male who presents here today for Above Complaints.. Patient states he has increased left ankle pain in the past 3 days. He does have hx of gout and suspects that this may be the cause. Typically will get it in his knees or ankles Patient states that ankle is swollen. Pain when ankle stretches. Feels warm. Patient states he had sweet tea recently which he knows is a trigger for him. No recently injury. Did have an injection in left foot about 10 days ago by podiatry. Past medical history, appointments, medications, allergies reviewed. Previous Medical History PAST MEDICAL HISTORY Diagnosis Date Ascending aorta dilatation (HCC) Basal cell cancer Decreased peripheral vision of left eye Essential hypertension 07/06/2021 GERD (gastroesophageal reflux disease) Gout Jeffry's thyroiditis with thyroid nodules Mild left ventricular systolic dysfunction Mild pulmonary hypertension (HCC) Mixed hyperlipidemia 11/16/2015 Obesity MAXIMILIAN (obstructive sleep apnea) 10/20/2020 Osteoarthritis Sinus bradycardia Previous Surgical History PAST SURGICAL HISTORY Procedure Laterality Date COLONOSCOPY 04-04-14 repeat in 10 yrs INT REPAIR SCALP,SYDNI,TRUNK <2.5CM 12-23-10 PAST SURGICAL HISTORY OF left knee PAST SURGICAL HISTORY OF right hammer toe PAST SURGICAL HISTORY OF left hammer toe REM LESION TRUNK,ARM, LEG <0.5 CM 12-23-10 THYROIDECTOMY TOTAL/COMPLETE 12-23-10 Family History FAMILY HISTORY Problem Relation Age of Onset Hypertension Mother Diabetes Mother Prostate Cancer Father Cancer Father Stroke Maternal Grandfather Alcohol/Drug Maternal Grandfather Cancer Paternal Grandmother Patient Allergies ALLERGIES No Known Allergies Current Medications Current Outpatient Medications on File Prior to Visit Medication Sig allopurinol (ZYLOPRIM) 300 mg tablet Take 1 tablet by mouth once daily. rosuvastatin (CRESTOR) 20 mg tablet Take 1 tablet by mouth daily at bedtime. lisinopril (ZESTRIL) 5 mg tablet Take 1 tablet by mouth once daily. levothyroxine (SYNTHROID) 137 mcg tablet Take 1 tablet by mouth once daily. Except none on sundays gabapentin (NEURONTIN) 300 mg capsule Take 1 capsules after arriving home from work and then 2 capsules at approximately 7 PM. Fluocinolone-Shower Cap 0.01 % oil Apply to affected area of scalp nightly and wash out in the morning. ketoconazole (NIZORAL) 2 % shampoo Apply to wet hair, lather, and rinse thoroughly. Use 2-3 times weekly or as needed to control symptoms. Calcipotriene 0.005 % soln Apply to to scalp twice daily. Ipratropium [place] (ATROVENT) 21 mcg (0.03 %) nasal spray Use 2 Sprays in the nose every 12 hours. omega 5-vug-uhm-fish oil (FISH OIL) 100-160-1,000 mg cap Take by mouth. ascorbic acid (SUSAN-C ORAL) Take by mouth. CPAP AutoPAP with humidification set at a range of 5-16 cmH2O. Lifetime supplies. Please fit with [employer] under nose FFM. Please provide us download after 4 weeks of use. Cholecalciferol, Vitamin D3, 50 mcg (2,000 unit) cap Take 1 capsule by mouth once daily. Vitamin E, dl, acetate, (VITAMIN E) 134 mg (200 unit) Capsule Take by mouth once daily. (Patient not taking: Reported on 10/28/2022) Current Facility-Administered Medications on File Prior to Visit Medication perflutren lipid microspheres 1.3 mL in NaCl (PF) 0.9% 10 mL injection (DEFINITY) sodium chloride 0.9 % (flush) 10 mL (BD POSIFLUSH) Social History Social History Tobacco Use Smoking status: Never Smokeless tobacco: Never Vaping Use Vaping Use: Never used Substance Use Topics Alcohol use: No Drug use: No Review of Symptoms REVIEW OF SYSTEMS EXAM: BP 110/70 (BP Site: Right Arm, BP Position: Sitting, BP Cuff Size: Large Adult) Pulse (!) 52 Temp 36.4 ?C (97.6 ?F) Resp 18 Wt 116.6 kg (257 lb) BMI 35.34 kg/m? General Appearance: Well appearing, alert, in no acute distress, well-hydrated, well nourished.. Musculoskeletal: left ankle swollen. Mild erythema and warmth. ROM painful.. Health Maintenance List SHINGRIX VACCINE(1 of 2) Never done ADVANCE DIRECTIVE DISCUSSION Never done DEPRESSION ASSESSMENT Never done COVID-19 VACCINE(1) due on 06/13/2023 PNEUMOCOCCAL: 65+(2 - PPSV23 if available, else PCV20) due on 06/13/2023 INFLUENZA(Season Ended) due on 02/03/2023 ANNUAL PCP TEAM CHRONIC DISEASE VISIT due on 06/13/2023 BP CONTROLLED (<130/80) due on 09/15/2023 COLORECTAL CANCER SCREENING due on 04/04/2024 DIABETES SCREEN due on 06/15/2025 LIPID SCREEN due on 06/15/2027 DTAP,TDAP,TD(2 - Td or Tdap) due on 06/13/2032 HEPATITIS C SCREENING Completed Data reviewed ASSESSMENT/PLAN: 1. Acute gout of left ankle, unspe (more content not included)... [facility] 11-09-2022 History of Presen t illness Narrative Chief Complaint Patient presents with: Pain (foot): Left ankle HPI Lynn Dominguez is a 67 year old male who presents here today for Above Complaints.. Patient states he has increased left ankle pain in the past 3 days. He does have hx of gout and suspects that this may be the cause. Typically will get it in his knees or ankles Patient states that ankle is swollen. Pain when ankle stretches. Feels warm. Patient states he had sweet tea recently which he knows is a trigger for him. No recently injury. Did have an injection in left foot about 10 days ago by podiatry. Past medical history, appointments, medications, allergies reviewed. Previous Medical History PAST MEDICAL HISTORY Diagnosis Date Ascending aorta dilatation (HCC) Basal cell cancer Decreased peripheral vision of left eye Essential hypertension 07/06/2021 GERD (gastroesophageal reflux disease) Gout Jeffry's thyroiditis with thyroid nodules Mild left ventricular systolic dysfunction Mild pulmonary hypertension (HCC) Mixed hyperlipidemia 11/16/2015 Obesity MAXIMILIAN (obstructive sleep apnea) 10/20/2020 Osteoarthritis Sinus bradycardia Previous Surgical History PAST SURGICAL HISTORY Procedure Laterality Date COLONOSCOPY 04-04-14 repeat in 10 yrs INT REPAIR SCALP,SYDNI,TRUNK <2.5CM 12-23-10 PAST SURGICAL HISTORY OF left knee PAST SURGICAL HISTORY OF right hammer toe PAST SURGICAL HISTORY OF left hammer toe REM LESION TRUNK,ARM, LEG <0.5 CM 12-23-10 THYROIDECTOMY TOTAL/COMPLETE 12-23-10 Family History FAMILY HISTORY Problem Relation Age of Onset Hypertension Mother Diabetes Mother Prostate Cancer Father Cancer Father Stroke Maternal Grandfather Alcohol/Drug Maternal Grandfather Cancer Paternal Grandmother Patient Allergies ALLERGIES No Known Allergies Current Medications Current Outpatient Medications on File Prior to Visit Medication Sig allopurinol (ZYLOPRIM) 300 mg tablet Take 1 tablet by mouth once daily. rosuvastatin (CRESTOR) 20 mg tablet Take 1 tablet by mouth daily at bedtime. lisinopril (ZESTRIL) 5 mg tablet Take 1 tablet by mouth once daily. levothyroxine (SYNTHROID) 137 mcg tablet Take 1 tablet by mouth once daily. Except none on sundays gabapentin (NEURONTIN) 300 mg capsule Take 1 capsules after arriving home from work and then 2 capsules at approximately 7 PM. Fluocinolone-Shower Cap 0.01 % oil Apply to affected area of scalp nightly and wash out in the morning. ketoconazole (NIZORAL) 2 % shampoo Apply to wet hair, lather, and rinse thoroughly. Use 2-3 times weekly or as needed to control symptoms. Calcipotriene 0.005 % soln Apply to to scalp twice daily. Ipratropium [place] (ATROVENT) 21 mcg (0.03 %) nasal spray Use 2 Sprays in the nose every 12 hours. omega 7-owd-fgf-fish oil (FISH OIL) 100-160-1,000 mg cap Take by mouth. ascorbic acid (SUSAN-C ORAL) Take by mouth. CPAP AutoPAP with humidification set at a range of 5-16 cmH2O. Lifetime supplies. Please fit with [employer] under nose FFM. Please provide us download after 4 weeks of use. Cholecalciferol, Vitamin D3, 50 mcg (2,000 unit) cap Take 1 capsule by mouth once daily. Vitamin E, dl, acetate, (VITAMIN E) 134 mg (200 unit) Capsule Take by mouth once daily. (Patient not taking: Reported on 10/28/2022) Current Facility-Administered Medications on File Prior to Visit Medication perflutren lipid microspheres 1.3 mL in NaCl (PF) 0.9% 10 mL injection (DEFINITY) sodium chloride 0.9 % (flush) 10 mL (BD POSIFLUSH) Social History Social History Tobacco Use Smoking status: Never Smokeless tobacco: Never Vaping Use Vaping Use: Never used Substance Use Topics Alcohol use: No Drug use: No Review of Symptoms REVIEW OF SYSTEMS EXAM: BP 110/70 (BP Site: Right Arm, BP Position: Sitting, BP Cuff Size: Large Adult) Pulse (!) 52 Temp 36.4 C (97.6 F) Resp 18 Wt 116.6 kg (257 lb) BMI 35.34 kg/m General Appearance: Well appearing, alert, in no acute distress, well-hydrated, well nourished.. Musculoskeletal: left ankle swollen. Mild erythema and warmth. ROM painful.. Health Maintenance List SHINGRIX VACCINE(1 of 2) Never done ADVANCE DIRECTIVE DISCUSSION Never done DEPRESSION ASSESSMENT Never done COVID-19 VACCINE(1) due on 06/13/2023 PNEUMOCOCCAL: 65+(2 - PPSV23 if available, else PCV20) due on 06/13/2023 INFLUENZA(Season Ended) due on 02/03/2023 ANNUAL PCP TEAM CHRONIC DISEASE VISIT due on 06/13/2023 BP CONTROLLED (<130/80) due on 09/15/2023 COLORECTAL CANCER SCREENING due on 04/04/2024 DIABETES SCREEN due on 06/15/2025 LIPID SCREEN due on 06/15/2027 DTAP,TDAP,TD(2 - Td or Tdap) due on 06/13/2032 HEPATITIS C SCREENING Completed Data reviewed ASSESSMENT/PLAN: 1. Acute gout of left ankle, unspecified cause - ICD9: 274.01, ICD10: M10.9 (primary diagnosis) Suspect gout given patient's history presentation. Start prednisone. Will check labs Consider xray if pain continues - URIC ACID BLOOD - CBC + DIFF 2. Acute left ankle pain - ICD9: 719.47, ICD10: M25.572 As above. - URIC ACID BLOOD - CBC + DIFF Casey Perales PA-C documented in this encounter [facility] 11-02-2022 Miscellaneous Notes Patient phones requesting refills as follows: Requested Prescriptions Pending Prescriptions Disp Refills allopurinol (ZYLOPRIM) 300 mg tablet 30 tablet 2 Sig: Take 1 tablet by mouth once daily. ENIO 06/13/22 NOV 12/12/22 Please review and advise. Francis Cobos LPN documented in this encounter [facility] 10-28-2022 Note HNO ID: [id number] Author: Harlan Palafox Service: ? Author Type: Physician Type: Progress Notes Filed: 10/28/2022 10:30 AM Note Text: FOLLOW UP PODIATRIC OFFICE VISIT Chief Complaint: This 67 year old who presents for follow up:left foot pain Patient presents to clinic for follow-up left foot pain. Patient has pain to left 2nd interspace . Had injection of left 2nd interspace last June 2021 and this helped with his pain. He is interested in receiving another injection. Patient does notice some pain in both great toes especially when wearing narrow shoes. PAIN EVALUATION 10/21/2022 0945 Pain Level: 5 Pain Location: Foot-Left Description: Aching;Stabbing;Throbbing Duration Amount of Time: 12 Duration Units: Hours Frequency: Continuous Intervention/Comfort measure: Medication Comments: After being on feet for period of time Hemoglobin A1C Date Value Ref Range Status 07/09/2018 5.5 4.3 - 5.6 % Final Comment: [place] [employer] guidelines indicate that patients with HgbA1c in the range 5.7-6.4% are at increased risk for development of diabetes, and intervention by lifestyle modification may be beneficial. HgbA1c greater or equal to 6.5% is considered diagnostic of diabetes. PCP: Bandar Graf PA-C PAST MEDICAL HISTORY Diagnosis Date Ascending aorta dilatation (HCC) Basal cell cancer Decreased peripheral vision of left eye Essential hypertension 07/06/2021 GERD (gastroesophageal reflux disease) Gout Jeffry's thyroiditis with thyroid nodules Mild left ventricular systolic dysfunction Mild pulmonary hypertension (HCC) Mixed hyperlipidemia 11/16/2015 Obesity MAXIMILIAN (obstructive sleep apnea) 10/20/2020 Osteoarthritis Sinus bradycardia Current Outpatient Medications Medication Sig rosuvastatin (CRESTOR) 20 mg tablet Take 1 tablet by mouth daily at bedtime. lisinopril (ZESTRIL) 5 mg tablet Take 1 tablet by mouth once daily. allopurinol (ZYLOPRIM) 300 mg tablet Take 1 tablet by mouth once daily. levothyroxine (SYNTHROID) 137 mcg tablet Take 1 tablet by mouth once daily. Except none on sundays gabapentin (NEURONTIN) 300 mg capsule Take 1 capsules after arriving home from work and then 2 capsules at approximately 7 PM. Fluocinolone-Shower Cap 0.01 % oil Apply to affected area of scalp nightly and wash out in the morning. ketoconazole (NIZORAL) 2 % shampoo Apply to wet hair, lather, and rinse thoroughly. Use 2-3 times weekly or as needed to control symptoms. Calcipotriene 0.005 % soln Apply to to scalp twice daily. Ipratropium [place] (ATROVENT) 21 mcg (0.03 %) nasal spray Use 2 Sprays in the nose every 12 hours. omega 4-izg-ykx-fish oil (FISH OIL) 100-160-1,000 mg cap Take by mouth. ascorbic acid (SUSAN-C ORAL) Take by mouth. CPAP AutoPAP with humidification set at a range of 5-16 cmH2O. Lifetime supplies. Please fit with Modanisawear under nose FFM. Please provide us download after 4 weeks of use. Cholecalciferol, Vitamin D3, 50 mcg (2,000 unit) cap Take 1 capsule by mouth once daily. Vitamin E, dl, acetate, (VITAMIN E) 134 mg (200 unit) Capsule Take by mouth once daily. (Patient not taking: Reported on 10/28/2022) Current Facility-Administered Medications Medication Dose Route Frequency perflutren lipid microspheres 1.3 mL in NaCl (PF) 0.9% 10 mL injection (DEFINITY) INTRAVENOUS DIRECTED PRN sodium chloride 0.9 % (flush) 10 mL (BD POSIFLUSH) 10 mL INTRAVENOUS DIRECTED PRN ALLERGIES No Known Allergies PAST SURGICAL HISTORY Procedure Laterality Date COLONOSCOPY 04-04-14 repeat in 10 yrs INT REPAIR SCALP,SYDNI,TRUNK <2.5CM 12-23-10 PAST SURGICAL HISTORY OF left knee PAST SURGICAL HISTORY OF right hammer toe PAST SURGICAL HISTORY OF left hammer toe REM LESION TRUNK,ARM, LEG <0.5 CM 12-23-10 THYROIDECTOMY TOTAL/COMPLETE 12-23-10 Physical Exam: OBJECTIVE: Constitutional: Pt is a well developed 67 year old male who is alert, oriented, cooperative and in no apparent distress. Eyes: Following during examination. No redness or drainage. Respiratory: RR normal and nonlabored. Even breathing. No evidence of distress. Psychology: Patient is engaged during conversation. Normal affect and mood. Does not appear depressed or anxious. NVSI unchanged from previous visit. Dermatological: Nails 1-5 b/l are normal. Webspaces clean and dry 1-4 b/l. Skin appears well hydrated and supple. good color, texture, turgor. No open lesions present. No callosities present. Musculoskeletal/Orthopaedic: Patient has pain to palpation of left 2nd interspace + dang sign of left 2nd interspace Contracted 2nd toe of left foot Mild valgus deformity of b/l first ray ASSESSMENT: (D36.10) Neuroma (primary encounter diagnosis) (M20.42) Hammer toe of left foot (M79.672) Left foot pain (M20.12) Hallux valgus of left foot (M20.11) Hallux valgus of right foot PLAN: Discussed pain of left 2nd intersp (more content not included)... [facility] 10-28-2022 Note HNO ID: [id number] Author: Kiarra Tang RN Service: ? Author Type: ? Type: Progress Notes Filed: 10/28/2022 10:30 AM Note Text: AMB ROOMING INTAKE FLOWSHEET DATA Pain Pain Level: 5 Pain Location: Foot-Left Description: Aching, Stabbing, Throbbing Duration Amount of Time: 12 Duration Units: Hours Frequency: Continuous Intervention/Comfort measure: Medication Comments: After being on feet for period of time Patient presents with: Left Foot - Established Patient, Pain Right Foot - Established Patient, Pain Patient is here for follow up of L foot pain. States his R foot is bothering him now too. Received injection in June 2021 to L foot. Patient states he got good relief from injection and then pain started up again in the past few months. He would like to repeat injection today. [facility] 09-14-2022 Miscellaneous Notes Patient's request for medication is as follows: Requested Prescriptions Pending Prescriptions Disp Refills lisinopril (ZESTRIL) 5 mg tablet 90 tablet 3 Sig: Take 1 tablet by mouth once daily. Prescription(s) as above. Please process accordingly. Joyce Berry APRN.WIRE BOUND BOX MACHINE HELPER ENIO: 09/14/22 Giuseppe NOV: 03/16/23 Kate documented in this encounter [facility] 09-14-2022 Note HNO ID: [id number] Author: Iban Chin APRN.CNP Service: ? Author Type: Nurse Practitioner Type: Progress Notes Filed: 09/14/2022 11:36 AM Note Text: [facility] Department of Cardiovascular Medicine SECTION OF CLINICAL CARDIOLOGY OUTPATIENT VISIT DATE September 14, 2022 OUTPATIENT VISIT TYPE ESTABLISHED PRIMARY CARE PHYSICIAN: Bandar Graf [address] [place] [address] REFERRING PHYSICIAN: Milo Reeves [address] [facility] [id number] CHIEF COMPLAINT: Follow up HISTORY OF PRESENT ILLNESS: Mr. Dominguez is a 66 year old male with mild LV systolic dysfunction (improved), ascending aorta dilatation, HTN, HLD, mild pulmonary hypertension, MAXIMILIAN, and hypothyroidism who presents today for a cardiovascular medicine follow-up visit. He was last seen in the office by Dr. El on 01/03/2022 at which time he was doing well from a cardiovascular standpoint and no additions or changes were made with plan for follow-up in 6 months time. He has had no hospitalizations or procedures since his last office visit. He is looking forward to retiring this summer. He is not currently participating in any daily aerobic exercise but him and his plan to start walking daily once he retires. He has not recently been monitoring his heart rate or blood pressure daily at home but reports his heart rate typically is 45-55 at home when he does check. He remains compliant on his CPAP. He denies any chest pain, shortness of breath, palpitations, lightheadedness, dizziness, presyncope, syncope, lower extremity edema, orthopnea, or PND. Subjective PAST MEDICAL HISTORY Diagnosis Date Ascending aorta dilatation (HCC) Basal cell cancer Decreased peripheral vision of left eye Essential hypertension 07/06/2021 GERD (gastroesophageal reflux disease) Gout Jeffry's thyroiditis with thyroid nodules Mild left ventricular systolic dysfunction Mild pulmonary hypertension (HCC) Mixed hyperlipidemia 11/16/2015 Obesity MAXIMILIAN (obstructive sleep apnea) 10/20/2020 Osteoarthritis Sinus bradycardia PAST SURGICAL HISTORY Procedure Laterality Date COLONOSCOPY 04-04-14 repeat in 10 yrs INT REPAIR SCALP,SYDNI,TRUNK <2.5CM 12-23-10 PAST SURGICAL HISTORY OF left knee PAST SURGICAL HISTORY OF right hammer toe PAST SURGICAL HISTORY OF left hammer toe REM LESION TRUNK,ARM, LEG <0.5 CM 12-23-10 THYROIDECTOMY TOTAL/COMPLETE 12-23-10 Social History Tobacco Use Smoking status: Never Smokeless tobacco: Never Vaping Use Vaping Use: Never used Substance Use Topics Alcohol use: No Drug use: No FAMILY HISTORY Problem Relation Age of Onset Hypertension Mother Diabetes Mother Prostate Cancer Father Cancer Father Stroke Maternal Grandfather Alcohol/Drug Maternal Grandfather Cancer Paternal Grandmother ALLERGIES: ALLERGIES No Known Allergies MEDICATIONS: allopurinol (ZYLOPRIM) 300 mg tabletTake 1 tablet by mouth once daily.Disp: 30 tabletRfl: 2 levothyroxine (SYNTHROID) 137 mcg tabletTake 1 tablet by mouth once daily. Except none on sundaysDisp: 90 tabletRfl: 4 gabapentin (NEURONTIN) 300 mg capsuleTake 1 capsules after arriving home from work and then 2 capsules at approximately 7 PM.Disp: 270 capsuleRfl: 1 Fluocinolone-Shower Cap 0.01 % oilApply to affected area of scalp nightly and wash out in the morning.Disp: 118.28 mLRfl: 5 ketoconazole (NIZORAL) 2 % shampooApply to wet hair, lather, and rinse thoroughly. Use 2-3 times weekly or as needed to control symptoms.Disp: 120 mLRfl: 5 Calcipotriene 0.005 % solnApply to to scalp twice daily.Disp: 60 mLRfl: 3 Ipratropium [place] (ATROVENT) 21 mcg (0.03 %) nasal sprayUse 2 Sprays in the nose every 12 hours.Disp: 3.5 mLRfl: 5 lisinopril (ZESTRIL, PRINIVIL) 5 mg tabletTake 1 tablet by mouth once daily.Disp: 90 tabletRfl: 3 Vitamin E, dl, acetate, (VITAMIN E) 134 mg (200 unit) CapsuleTake by mouth once daily.Disp: Rfl: omega 4-llb-zbw-fish oil (FISH OIL) 100-160-1,000 mg capTake by mouth.Disp: Rfl: ascorbic acid (SUSAN-C ORAL)Take by mouth.Disp: Rfl: CPAPAutoPAP with humidification set at a range of 5-16 cmH2O. Lifetime supplies. Please fit with dreamwear under nose FFM. Please provide us download after 4 weeks of use.Disp: 1 DeviceRfl: 99 Cholecalciferol, Vitamin D3, 50 mcg (2,000 unit) capTake 1 capsule by mouth once daily.Disp: Rfl: rosuvastatin (CRESTOR) 20 mg tabletTake 1 tablet by mouth daily at bedtime.Disp: 90 tabletRfl: 3 REVIEW OF SYSTEMS: CARD: See HPI GENERAL: Negative for: Weight loss or gain, Fever and/or Chills HEENT: Negative for: Headache, Impaired Vision, Glasses, Hearing Impairment, Ringing in Ears, Nosebleeds, Bleeding Gums +Congestion NECK: Negative for: Swelling, Pain, Stiffness RESPIRATORY: Negative for: Cough, Blood in Sputum, Shortness of breath, Wheezing, Apnea (more content not included)... [facility] 09-14-2022 Instructions Iban Chin APRN.WIRE BOUND BOX MACHINE HELPER - 09/14/2022 10:53 AM EDT It was great to see you today, as we discussed: 1. You are due for repeat echocardiogram to check your aorta. This can be done at [facility] 2. Your risk of a cardiac event in the next 10 years is elevated at 18% for this we would like to get better control of your cholesterol. Please stop Lovastatin and start Rosuvastatin (Crestor) 20 mg daily 3. Fasting labs in 3 months to check your cholesterol function and liver function on the Crestor 4. Your heart rate remains low in the office however you remain asymptomatic. If you develop symptoms such as worsening fatigue, lightheadedness, dizziness or passing out spells in the future please let us know at which time we would consider placing a heart monitor to check your average heart rate 5. Follow up with Dr. El in 6 months or sooner if need arises documented in this encounter [facility] 09-14-2022 History of Presen t illness Narrative Images from the original note were not included. [facility] Department of Cardiovascular Medicine SECTION OF CLINICAL CARDIOLOGY OUTPATIENT VISIT DATE September 14, 2022 OUTPATIENT VISIT TYPE ESTABLISHED PRIMARY CARE PHYSICIAN: Bandar Graf [address] [place] [address] REFERRING PHYSICIAN: Milo Reeves [address] [facility] [address] CHIEF COMPLAINT: Follow up HISTORY OF PRESENT ILLNESS: Mr. Dominguez is a 66 year old male with mild LV systolic dysfunction (improved), ascending aorta dilatation, HTN, HLD, mild pulmonary hypertension, MAXIMILIAN, and hypothyroidism who presents today for a cardiovascular medicine follow-up visit. He was last seen in the office by Dr. El on 01/03/2022 at which time he was doing well from a cardiovascular standpoint and no additions or changes were made with plan for follow-up in 6 months time. He has had no hospitalizations or procedures since his last office visit. He is looking forward to retiring this summer. He is not currently participating in any daily aerobic exercise but him and his plan to start walking daily once he retires. He has not recently been monitoring his heart rate or blood pressure daily at home but reports his heart rate typically is 45-55 at home when he does check. He remains compliant on his CPAP. He denies any chest pain, shortness of breath, palpitations, lightheadedness, dizziness, presyncope, syncope, lower extremity edema, orthopnea, or PND. Subjective PAST MEDICAL HISTORY Diagnosis Date Ascending aorta dilatation (HCC) Basal cell cancer Decreased peripheral vision of left eye Essential hypertension 07/06/2021 GERD (gastroesophageal reflux disease) Gout Jeffry's thyroiditis with thyroid nodules Mild left ventricular systolic dysfunction Mild pulmonary hypertension (HCC) Mixed hyperlipidemia 11/16/2015 Obesity MAXIMILIAN (obstructive sleep apnea) 10/20/2020 Osteoarthritis Sinus bradycardia PAST SURGICAL HISTORY Procedure Laterality Date COLONOSCOPY 04-04-14 repeat in 10 yrs INT REPAIR SCALP,SDYNI,TRUNK <2.5CM 12-23-10 PAST SURGICAL HISTORY OF left knee PAST SURGICAL HISTORY OF right hammer toe PAST SURGICAL HISTORY OF left hammer toe REM LESION TRUNK,ARM, LEG <0.5 CM 12-23-10 THYROIDECTOMY TOTAL/COMPLETE 12-23-10 Social History Tobacco Use Smoking status: Never Smokeless tobacco: Never Vaping Use Vaping Use: Never used Substance Use Topics Alcohol use: No Drug use: No FAMILY HISTORY Problem Relation Age of Onset Hypertension Mother Diabetes Mother Prostate Cancer Father Cancer Father Stroke Maternal Grandfather Alcohol/Drug Maternal Grandfather Cancer Paternal Grandmother ALLERGIES: ALLERGIES No Known Allergies MEDICATIONS: allopurinol (ZYLOPRIM) 300 mg tablet^Take 1 tablet by mouth once daily.^Disp: 30 tablet^Rfl: 2 levothyroxine (SYNTHROID) 137 mcg tablet^Take 1 tablet by mouth once daily. Except none on sundays^Disp: 90 tablet^Rfl: 4 gabapentin (NEURONTIN) 300 mg capsule^Take 1 capsules after arriving home from work and then 2 capsules at approximately 7 PM.^Disp: 270 capsule^Rfl: 1 Fluocinolone-Shower Cap 0.01 % oil^Apply to affected area of scalp nightly and wash out in the morning.^Disp: 118.28 mL^Rfl: 5 ketoconazole (NIZORAL) 2 % shampoo^Apply to wet hair, lather, and rinse thoroughly. Use 2-3 times weekly or as needed to control symptoms.^Disp: 120 mL^Rfl: 5 Calcipotriene 0.005 % soln^Apply to to scalp twice daily.^Disp: 60 mL^Rfl: 3 Ipratropium [place] (ATROVENT) 21 mcg (0.03 %) nasal spray^Use 2 Sprays in the nose every 12 hours.^Disp: 3.5 mL^Rfl: 5 lisinopril (ZESTRIL, PRINIVIL) 5 mg tablet^Take 1 tablet by mouth once daily.^Disp: 90 tablet^Rfl: 3 Vitamin E, dl, acetate, (VITAMIN E) 134 mg (200 unit) Capsule^Take by mouth once daily.^Disp: ^Rfl: omega 0-xcm-pqp-fish oil (FISH OIL) 100-160-1,000 mg cap^Take by mouth.^Disp: ^Rfl: ascorbic acid (SUSAN-C ORAL)^Take by mouth.^Disp: ^Rfl: CPAP^AutoPAP with humidification set at a range of 5-16 cmH2O. Lifetime supplies. Please fit with WhiteSmoke under nose FFM. Please provide us download after 4 weeks of use.^Disp: 1 Device^Rfl: 99 Cholecalciferol, Vitamin D3, 50 mcg (2,000 unit) cap^Take 1 capsule by mouth once daily.^Disp: ^Rfl: rosuvastatin (CRESTOR) 20 mg tablet^Take 1 tablet by mouth daily at bedtime.^Disp: 90 tablet^Rfl: 3 REVIEW OF SYSTEMS: CARD: See HPI GENERAL: Negative for: Weight loss or gain, Fever and/or Chills HEENT: Negative for: Headache, Impaired Vision, Glasses, Hearing Impairment, Ringing in Ears, Nosebleeds, Bleeding Gums +Congestion NECK: Negative for: Swelling, Pain, Stiffness RESPIRATORY: Negative for: Cough, Blood in Sputum, Shortness of breath, Wheezing, Apnea GASTROINTESTINAL: Negative for: Nausea, Vomiting, Diarrhea, Blood in stool, or Dark black stools MUSCULOSKELETAL: +Chronic back pain NEUROLOGIC: Negative for: focal numbness/weakness, headaches, visual changes, ataxia, speech/language loss SKIN: Negative for: Rashes, Itching HEMATOLOGICAL/LYMPHATIC: Negative for: Easy bruising , Easy bleeding ENDOCRINE: Negative for: Heat or cold intolerance, Excessive sweating, Frequent urination, Frequent thirst Objective PHYSICAL EXAMINATION: BP 114/70 Pulse (!) 43 Ht 181.6 cm (5' 11.5 ) Wt 119.9 kg (264 lb 6.4 oz) SpO2 99% BMI 36.36 kg/m General: Well appearing, in no acute distress. Skin: No clubbing, no cyanosis. Eyes: Extra ocular movements intact Oropharynx: Teeth in good repair. Neck: No jugular venous distention, no carotid bruits, carotids have a normal upstroke. Lungs: Clear to auscultation bilaterally, no wheezing or rhonchi. Heart: Regular rhythm, bradycardic, S1, S2 normal, no S3, no S4, no heaves, no rub and no murmur. No peripheral edema . Grade 2/4 distal pulses bilaterally. Abdomen: Soft, nontender, bowel sounds normal, no bruits. Neuro: Oriented to person, place and time, alert, cooperative, gait coordinated. CARDIOVASCULAR MEDICINE TESTING: Electrocardiogram 09/14/22: Sinus bradycardia at 43 bpm I have personally reviewed the Electrocardiogram. PLAN AND RECOMMENDATIONS: 1. Mild left ventricular systolic dysfunction - Echo 05/2019: EF 48% - Exercise MPI 05/2019: no ischemia or infarction at 90% of MPHR (9.7 METS); EF 56% - Echo 07/2020: EF 53% - Echo 07/2021: EF 53% - Improved 2. Sinus bradycardia - Office HRs 40s-50s - Asymptomatic - Not on any chronotropic agents - Reports home HRs 45-55 - Monitor for any progressive evidence of SA node dysfunction - Consider Zio event monitor in future 3. Dilated thoracic ascending aorta - Echo 07/2021: Max dimension 4.2 cm at the mid and distal ascending - Emphasis on aggressive BP control - Annual echocardiogram monitoring - Echocardiogram 4. Mild pulmonary hypertension - Echo 07/2020: RVSP 39mmHg - Echo 07/2021: RVSP 33 mmHg - + MAXIMILIAN 5. Essential hypertension - Optimal control on lisinopril - Encouraged dietary sodium restriction/DASH diet - Reviewed risks of HTN and principles of treatment - Goal of BP <130/80 6. Mixed hyperlipidemia - Currently on lovastatin 40 mg daily - 10 year ASCVD risk 18.7% - Last lipid panel 06/2022 with LDL 119 - Normal LFTs 06/2022 - Stop Lovastatin - Start Crestor 20 mg daily - FLP and LFTs in 3 months 7. MAXIMILIAN (obstructive sleep apnea), RLS - Compliant on CPAP - Follows with sleep medicine 8. Valvular insufficiency - Echo 07/2021: - Mild (1-2+) MR - Mild (1+) TR - Emphasis on afterload reduction - Periodic monitoring clinically with echocardiogram CONCLUSION: Patient presents today for follow-up an appears to be doing well from a cardiovascular standpoint. He is bradycardic in the office today at 43 bpm however this is longstanding for him with heart rates typically running 40-50 in the office. He is completely asymptomatic at this time. Would consider placing a Zio event monitor in the future should he develop symptoms to assess average heart rate and for any significant pauses or block. He is due for repeat echocardiogram for his known dilated thoracic ascending aorta at this time. His most recent cholesterol profile demonstrates an LDL of 119 with a 10-year ASCVD risk of 18.7%. At this time we will have him stop lovastatin and start Crestor 20 mg daily with plan for repeat FLP and LFTs in 3 months time with LDL goal of <70. His heart rate and blood pressure remain under optimal control. He should continue to actively engage in cardiovascular risk factor modification and follow up with Dr. El in 6 months, or sooner should need arise. CONTACT INFORMATION: Iban Chin APRN.WIRE BOUND BOX MACHINE HELPER Cardiology Nurse Practitioner Section of Regional Cardiology [facility] Dept of Cardiovascular Medicine [facility] [address] [place] [address] Office Office This note was partially generated using [employer] voice recognition system and may contain errors related to that system including grammar, punctuation, spelling, and words that may be inappropriate documented in this encounter [facility] 08-01-2022 Miscellaneous Notes Patient has been identified by name and date of : Yes Requested Prescriptions Pending Prescriptions Disp Refills allopurinol (ZYLOPRIM) 300 mg tablet 30 tablet 2 Sig: Take 1 tablet by mouth once daily. RX INSTRUCTIONS: Patient aware RX will be sent to pharmacy. No need to notify patient. Pt ENIO 06/13/22 with Silvia, NOV 12/12/22 Wendy Gaxiola MA documented in this encounter [facility] 07-06-2022 Note HNO ID: [id number] Author: Elena Sepulveda V, MD Service: ? Author Type: Physician Type: Progress Notes Filed: 07/06/2022 11:41 AM Note Text: FOLLOW UP VISIT THIS NOTE WAS CARRIED FORWARD FROM THE VISIT WITH ME IN JUL 2021 AND ADDENDED APPROPRIATE TO REFLECT TODAY'S VISIT WITH HISTORY, EXAM, ROS, DATA REVIEWED AND ASSESSMENT AND PLAN. 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 , post thyroidectomy and SAXENA Last visit: Apr [address] Singh,2015 with me HPI: Lynn Dominguez 63 year old male Duration: 2010 Modifying factors:On LT4, total thyroidectomy in 2010, Saxena in 2011, last neck US in 2012 Severity: moderate QUality: controlled INTERVAL HPI (October 26, 2018 ): Has been doing well INTERVAL HPI (December 10, 2019 ): INTERVAL HPI (June 16, 2020 ): Doing well For last 1 year has been taking his allopurinol and synthroid together Labs have been fine Levels are OK INTERVAL HPI (July 13, 2021 ): Doing well No complaints Recovered from covid in katharine INTERVAL HPI (July 06, 2022 ): Has been doing well No concerns Planning to retire soon Trying to lose weight PAST MEDICAL HISTORY Diagnosis Date Ascending aorta dilatation (HCC) Basal cell cancer Decreased peripheral vision of left eye Essential hypertension 07/06/2021 GERD (gastroesophageal reflux disease) Gout Jeffry's thyroiditis with thyroid nodules Mild left ventricular systolic dysfunction Mild pulmonary hypertension (HCC) Mixed hyperlipidemia 11/16/2015 Obesity MAXIMILIAN (obstructive sleep apnea) 10/20/2020 Osteoarthritis Sinus bradycardia PAST SURGICAL HISTORY Procedure Laterality Date COLONOSCOPY 04-04-14 repeat in 10 yrs INT REPAIR SCALP,SYDNI,TRUNK <2.5CM 12-23-10 PAST SURGICAL HISTORY OF left knee PAST SURGICAL HISTORY OF right hammer toe PAST SURGICAL HISTORY OF left hammer toe REM LESION TRUNK,ARM, LEG <0.5 CM 12-23-10 THYROIDECTOMY TOTAL/COMPLETE 12-23-10 FAMILY HISTORY Problem Relation Age of Onset Hypertension Mother Diabetes Mother Prostate Cancer Father Cancer Father Stroke Maternal Grandfather Alcohol/Drug Maternal Grandfather Cancer Paternal Grandmother SOCIAL HISTORY 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 allopurinol (ZYLOPRIM) 300 mg tablet Take 1 tablet by mouth once daily. Fluocinolone-Shower Cap 0.01 % oil Apply to affected area of scalp nightly and wash out in the morning. ketoconazole (NIZORAL) 2 % shampoo Apply to wet hair, lather, and rinse thoroughly. Use 2-3 times weekly or as needed to control symptoms. Calcipotriene 0.005 % soln Apply to to scalp twice daily. Ipratropium [place] (ATROVENT) 21 mcg (0.03 %) nasal spray Use 2 Sprays in the nose every 12 hours. lisinopril (ZESTRIL, PRINIVIL) 5 mg tablet Take 1 tablet by mouth once daily. lovastatin 40 mg tablet Take 1 tablet by mouth daily at bedtime. Vitamin E, dl, acetate, (VITAMIN E) 134 mg (200 unit) Capsule Take by mouth once daily. omega 8-dbc-fdf-fish oil (FISH OIL) 100-160-1,000 mg cap Take by mouth. ascorbic acid (SUSAN-C ORAL) Take by mouth. CPAP AutoPAP with humidification set at a range of 5-16 cmH2O. Lifetime supplies. Please fit with dreamwear under nose FFM. Please provide us download after 4 weeks of use. Cholecalciferol, Vitamin D3, 50 mcg (2,000 unit) cap Take 1 capsule by mouth once daily. levothyroxine (SYNTHROID) 137 mcg tablet Take 1 tablet by mouth once daily. Except none on sundays Current Facility-Administered Medications Medication Dose Route Frequency perflutren lipid microspheres 1.3 mL in NaCl (PF) 0.9% 10 mL injection (DEFINITY) INTRAVENOUS DIRECTED PRN sodium chloride 0.9 % (flush) 10 mL (BD POSIFLUSH) 10 mL INTRAVENOUS DIRECTED PRN Review of patient's allergies indicates: No Known Allergies ROS: Energy is good. Sleeps well. Weight is stable. No difficulties swallowing or breathing. No pain or tenderness from thyroid bed. No heart palpitations. No temperature intolerance. No excessive sweating No constipation or diarrhea. No problems with skin, hair or nails. No muscle weakness. No muscle cramping. No tremors. Memory is good. No problems focusing. All other systems normal PHYSICAL EXAM: BP 132/82 (BP Site: Left Arm, BP Position: Sitting, BP Cuff Size: Large Adult) Pulse (!) 47 Wt 118.8 kg (262 lb) BMI 36.08 kg/m? General: AO X3 Skin: skin color, texture, turgor normal, no rashes or lesions. Eyes: Anicteric sclera. Neck: normal Abdomen: soft, non-tender, Extremities: no edema Peripheral Pulses: posterior tibial and doralis pedis pulses 2+ LABS: Component Latest Ref Rng AN (more content not included)... [facility] 07-06-2022 History of Presen t illness Narrative FOLLOW UP VISIT THIS NOTE WAS CARRIED FORWARD FROM THE VISIT WITH ME IN JUL 2021 AND ADDENDED APPROPRIATE TO REFLECT TODAY'S VISIT WITH HISTORY, EXAM, ROS, DATA REVIEWED AND ASSESSMENT AND PLAN. 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 , post thyroidectomy and SAXENA Last visit: Apr [address] Singh,2014 with me HPI: Lynn Dominguez 63 year old male Duration: 2010 Modifying factors:On LT4, total thyroidectomy in 2010, Saxena in 2011, last neck US in 2012 Severity: moderate QUality: controlled INTERVAL HPI (October 26, 2018 ): Has been doing well INTERVAL HPI (December 10, 2019 ): INTERVAL HPI (June 16, 2020 ): Doing well For last 1 year has been taking his allopurinol and synthroid together Labs have been fine Levels are OK INTERVAL HPI (July 13, 2021 ): Doing well No complaints Recovered from covid in katharine INTERVAL HPI (July 06, 2022 ): Has been doing well No concerns Planning to retire soon Trying to lose weight PAST MEDICAL HISTORY Diagnosis Date Ascending aorta dilatation (HCC) Basal cell cancer Decreased peripheral vision of left eye Essential hypertension 07/06/2021 GERD (gastroesophageal reflux disease) Gout Jeffry's thyroiditis with thyroid nodules Mild left ventricular systolic dysfunction Mild pulmonary hypertension (HCC) Mixed hyperlipidemia 11/16/2015 Obesity MAXIMILIAN (obstructive sleep apnea) 10/20/2020 Osteoarthritis Sinus bradycardia PAST SURGICAL HISTORY Procedure Laterality Date COLONOSCOPY 04-04-14 repeat in 10 yrs INT REPAIR SCALP,SYDNI,TRUNK <2.5CM 12-23-10 PAST SURGICAL HISTORY OF left knee PAST SURGICAL HISTORY OF right hammer toe PAST SURGICAL HISTORY OF left hammer toe REM LESION TRUNK,ARM, LEG <0.5 CM 12-23-10 THYROIDECTOMY TOTAL/COMPLETE 12-23-10 FAMILY HISTORY Problem Relation Age of Onset Hypertension Mother Diabetes Mother Prostate Cancer Father Cancer Father Stroke Maternal Grandfather Alcohol/Drug Maternal Grandfather Cancer Paternal Grandmother SOCIAL HISTORY 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 allopurinol (ZYLOPRIM) 300 mg tablet Take 1 tablet by mouth once daily. Fluocinolone-Shower Cap 0.01 % oil Apply to affected area of scalp nightly and wash out in the morning. ketoconazole (NIZORAL) 2 % shampoo Apply to wet hair, lather, and rinse thoroughly. Use 2-3 times weekly or as needed to control symptoms. Calcipotriene 0.005 % soln Apply to to scalp twice daily. Ipratropium [place] (ATROVENT) 21 mcg (0.03 %) nasal spray Use 2 Sprays in the nose every 12 hours. lisinopril (ZESTRIL, PRINIVIL) 5 mg tablet Take 1 tablet by mouth once daily. lovastatin 40 mg tablet Take 1 tablet by mouth daily at bedtime. Vitamin E, dl, acetate, (VITAMIN E) 134 mg (200 unit) Capsule Take by mouth once daily. omega 6-mvt-idn-fish oil (FISH OIL) 100-160-1,000 mg cap Take by mouth. ascorbic acid (SUSAN-C ORAL) Take by mouth. CPAP AutoPAP with humidification set at a range of 5-16 cmH2O. Lifetime supplies. Please fit with dreamwear under nose FFM. Please provide us download after 4 weeks of use. Cholecalciferol, Vitamin D3, 50 mcg (2,000 unit) cap Take 1 capsule by mouth once daily. levothyroxine (SYNTHROID) 137 mcg tablet Take 1 tablet by mouth once daily. Except none on sundays Current Facility-Administered Medications Medication Dose Route Frequency perflutren lipid microspheres 1.3 mL in NaCl (PF) 0.9% 10 mL injection (DEFINITY) INTRAVENOUS DIRECTED PRN sodium chloride 0.9 % (flush) 10 mL (BD POSIFLUSH) 10 mL INTRAVENOUS DIRECTED PRN Review of patient's allergies indicates: No Known Allergies ROS: Energy is good. Sleeps well. Weight is stable. No difficulties swallowing or breathing. No pain or tenderness from thyroid bed. No heart palpitations. No temperature intolerance. No excessive sweating No constipation or diarrhea. No problems with skin, hair or nails. No muscle weakness. No muscle cramping. No tremors. Memory is good. No problems focusing. All other systems normal PHYSICAL EXAM: BP 132/82 (BP Site: Left Arm, BP Position: Sitting, BP Cuff Size: Large Adult) Pulse (!) 47 Wt 118.8 kg (262 lb) BMI 36.08 kg/m General: AO X3 Skin: skin color, texture, turgor normal, no rashes or lesions. Eyes: Anicteric sclera. Neck: normal Abdomen: soft, non-tender, Extremities: no edema Peripheral Pulses: posterior tibial and doralis pedis pulses 2+ LABS: Component Latest Ref Rng & Units 10/03/2017 Thyroglobulin 1.6 - 59.9 ng/mL <0.2 (L) TG Antibody Screen <14.4 IU/mL 1.1 Thyroglobulin Ab <14.4 IU/mL 1.1 Free T3 2.3 - 4.1 pg/mL 2.8 Free T4 0.9 - 1.7 ng/dL 1.1 TSH 0.400 - 5.500 uU/mL 1.830 Component Latest Ref Rng 10/17/2013 02/10/2015 08/24/2015 Thyroglobulin 0.8 - 49.0 ng/mL <0.2 (L) <0.2 (L) <0.2 (L) TG Antibody Screen <14.4 IU/mL <1.0 <1.0 <1.0 TSH 0.400 - 5.500 uU/mL 0.136 (L) 0.319 (L) 0.979 Thyroglobulin Ab <14.4 IU/mL <1.0 <1.0 Component Latest Ref Rng & Units 10/10/2016 Thyroglobulin 0.8 - 49.0 ng/mL <0.2 (L) TG Antibody Screen <14.4 IU/mL 1.8 TSH 0.400 - 5.500 uU/mL 0.060 (L) Thyroglobulin Ab <14.4 IU/mL 1.8 SURGERY: 12/23/2010/Dr Mike Suresh, [facility], report scanned in PATHOLOGY: scanned in system Hurthle cell Capsular invasion + Vascular invasion+ Thyroid cancer: Tumor type : Hurthle cell Tumor diameter 4 cm Solitary yes Extrathyroidal invasion no Node status neg Metastases unknown Complete excision yes TNM/AJCC: [id number] Stage II Ablation SAXENA -2011: [id number] Post-therapy scan neg Last scan 2011 Last neck US: 2012 ASSESSMENT: Lynn Dominguez 63 year old with Hurthle cell thyroid cancer , Stage II,, s/p thyroidectomy and SAXENA with 101 mCi , now on T4 suppression therapy #TSH goal: The recommended TSH goal would be 1-2 , to continue the TSH suppression as part of thyroid cancer treatment Will ease TSH goal to 1-2-- Ok to take it with other pills in am as long as levels stay good Educated about preference to take the synthroid by iteself in am # Surveillance: Tg continues to stay neg Howver Tg ab was trending up compared to previous--Last two have been stable and undetectable in 2019 and 2020. 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 OK to do it since levels have been fine RECOMMENDATION: 1. Continue 137 mcg daily except none on sundays . Repeat labs 1 year 3. Tg and Tg Ab in 1 year 4 Thyroid US if labs are abnormal 5 Thyrogen stimulated TG or scanif labs are abnormal FOLLOW UP: in 1 year with labs prior as ordered Elena Sepulveda MD documented in this encounter [facility] 06-17-2022 Miscellaneous Notes Patient notified of results, verbalizes understanding of instructions. She will tell Pt. Otilia Geronimo LPN Can please let patient know that I received his lab results. Everything looks okay. His prostate enzyme did go up some, but is normal for age. However, since we have in his history that his father had a hx of prostate CA, I would recommend an additional blood test. The order is in. He just needs to come in for the additional testing. It looks like he still has some thyroid studies ordered by endocrinology that are still in process. Silvia León APRN.[place] documented in this encounter [facility] 06-13-2022 History of Presen t illness Narrative ESTABLISHED PATIENT VISIT CHIEF COMPLAINT: Follow Up HISTORY OF PRESENT ILLNESS: Lynn Dominguez is a 66 year old male, BMI 36.02 kg/m2 with a PMH significant for and per last office visit of 11/25/21: 1. MAXIMILIAN (obstructive sleep apnea) - ICD9: 327.23, ICD10: G47.33 (primary diagnosis) Doing well subjectively and objectively on PAP therapy. No mask or pressure complaints. Encouraged PAP compliance. Reminded to clean and replace equipment regularly. Advised not to drive or operate heavy machinery when sleepy. 2. Restless legs syndrome - ICD9: 333.94, ICD10: G25.81 Symptoms start prior to taking gabapentin. Thus, will adjust dosing such that patient takes gabapentin 300mg at 5PM after arriving home from work (prior to onset of symptoms) and then continues with 600mg at 7PM as taking now. SE and ADRs reviewed with pt. OK dose based on renal function. PAP data download from 03/03/22-05/31/22 shows nightly use for avg of 6 hours and 59 minutes. AHI is 0.8. 95% pressure is 9.4 cmH2O. 95% leak is 12.9 LPM. Pressure set at 5-16 cmH2O. states pt is sleeping good . She states she has never seen a hebert get good sleep . Patient states wakes a couple times to use the bathroom. Pt waking more to urinate, but drinking more during the evening hours. RLS fairly well controlled. Takes gabapentin 300mg upon coming home from work and then 600mg at bedtime. Now only working 3 days per week. Only issues with falling asleep is that sometimes he feels he is forcing himself to bed early as has other things that needs to get done and does not get home from work until 6-7PM. Sleep Questionnaire Data Depression Screening 07/12/2020 10/13/2020 11/24/2021 PHQ-2 Score 0 3 0 PHQ-9 Score 0 3 0 PED PHQ-9 07/12/2020 10/13/2020 11/24/2021 Little interest or pleasure in doing things Not at all Nearly every day Not at all Feeling down, depressed, or hopeless Not at all Not at all Not at all Trouble falling or staying asleep, or sleeping too much Not at all Not at all Not at all Feeling tired or having little energy Not at all Not at all Not at all Poor appetite or overeating Not at all Not at all Not at all Feeling bad about yourself - or that you are a failure or have let yourself or your family down Not at all Not at all Not at all Trouble concentrating on things, such as reading the newspaper or watching television Not at all Not at all Not at all Moving or speaking so slowly that other people could have noticed. Or the opposite - being so fidgety or restless that you have been moving around a lot more than usual Not at all Not at all Not at all Thoughts that you would be better off , or of hurting yourself in some way Not at all Not at all Not at all If you checked off any problems, how difficult have these problems made it for you to do your work, take care of things at home, or get along with other people? Not difficult at all - - PHQ-9 Score 0 (None-Minimal Depression) 3 (None-Minimal Depression) 0 (None-Minimal Depression) Velarde Sleepiness Scale 07/12/2020 10/13/2020 11/24/2021 Score - 0 (No daytime sleepiness) 0 (No daytime sleepiness) REVIEW OF SYSTEMS GENERAL:No weight loss, malaise or fevers. HEENT:Negative for frequent or significant headaches, No changes in hearing or vision, no nose bleeds or other nasal problems RESPIRATORY: Negative for cough, wheezing or shortness of breath. CARDIOVASCULAR: Negative for chest pain, leg swelling or palpitations. LAB/IMAGING: Those performed since patient's last visit have been reviewed. WBC (k/uL) Date Value 06/01/2020 5.88 RBC (m/uL) Date Value 06/01/2020 4.72 Hemoglobin (g/dL) Date Value 06/01/2020 13.7 Hematocrit (%) Date Value 06/01/2020 42.9 MCV (fL) Date Value 06/01/2020 90.9 MCH (pG) Date Value 06/01/2020 29.0 MCHC (g/dL) Date Value 06/01/2020 31.9 RDW-CV (%) Date Value 06/01/2020 13.0 Platelet Count (k/uL) Date Value 06/01/2020 209 MPV (fL) Date Value 06/01/2020 11.0 Glucose (mg/dL) Date Value 06/01/2020 93 BUN (mg/dL) Date Value 06/01/2020 19 Creatinine (mg/dL) Date Value 06/01/2020 1.26 (H) Sodium (mmol/L) Date Value 06/01/2020 142 Potassium (mmol/L) Date Value 06/01/2020 4.3 Chloride (mmol/L) Date Value 06/01/2020 106 (H) CO2 (mmol/L) Date Value 06/01/2020 27 Protein, Total (g/dL) Date Value 06/01/2020 6.4 Albumin (g/dL) Date Value 06/01/2020 3.9 Calcium (mg/dL) Date Value 06/01/2020 9.5 Alkaline Phosphatase (U/L) Date Value 06/01/2020 69 Bilirubin, Total (mg/dL) Date Value 06/01/2020 0.3 AST (U/L) Date Value 06/01/2020 20 ALT (U/L) Date Value 06/01/2020 18 Hep C Antibody IA (no units) Date Value 11/16/2015 Negative MEDICATIONS: allopurinol (ZYLOPRIM) 300 mg tablet^Take 1 tablet by mouth once daily.^Disp: 30 tablet^Rfl: 2 Fluocinolone-Shower Cap 0.01 % oil^Apply to affected area of scalp nightly and wash out in the morning.^Disp: 118.28 mL^Rfl: 5 ketoconazole (NIZORAL) 2 % shampoo^Apply to wet hair, lather, and rinse thoroughly. Use 2-3 times weekly or as needed to control symptoms.^Disp: 120 mL^Rfl: 5 Calcipotriene 0.005 % soln^Apply to to scalp twice daily.^Disp: 60 mL^Rfl: 3 Ipratropium [place] (ATROVENT) 21 mcg (0.03 %) nasal spray^Use 2 Sprays in the nose every 12 hours.^Disp: 3.5 mL^Rfl: 5 gabapentin (NEURONTIN) 300 mg capsule^Take 1 capsules after arriving home from work and then 2 capsules at approximately 7 PM.^Disp: 270 capsule^Rfl: 1 lisinopril (ZESTRIL, PRINIVIL) 5 mg tablet^Take 1 tablet by mouth once daily.^Disp: 90 tablet^Rfl: 3 lovastatin 40 mg tablet^Take 1 tablet by mouth daily at bedtime.^Disp: 90 tablet^Rfl: 3 Vitamin E, dl, acetate, (VITAMIN E) 134 mg (200 unit) Capsule^Take by mouth once daily.^Disp: ^Rfl: omega 6-ksm-jen-fish oil (FISH OIL) 100-160-1,000 mg cap^Take by mouth.^Disp: ^Rfl: ascorbic acid (SUSAN-C ORAL)^Take by mouth.^Disp: ^Rfl: levothyroxine (SYNTHROID) 137 mcg tablet^Take 1 tablet by mouth once daily. Except none on sundays^Disp: 90 tablet^Rfl: 4 CPAP^AutoPAP with humidification set at a range of 5-16 cmH2O. Lifetime supplies. Please fit with Modanis[employer]ear under nose FFM. Please provide us download after 4 weeks of use.^Disp: 1 Device^Rfl: 99 Cholecalciferol, Vitamin D3, 50 mcg (2,000 unit) cap^Take 1 capsule by mouth once daily.^Disp: ^Rfl: HISTORIES PAST MEDICAL HISTORY Diagnosis Date Ascending aorta dilatation (HCC) Basal cell cancer Decreased peripheral vision of left eye Essential hypertension 07/06/2021 GERD (gastroesophageal reflux disease) Gout Jeffry's thyroiditis with thyroid nodules Mild left ventricular systolic dysfunction Mild pulmonary hypertension (HCC) Mixed hyperlipidemia 11/16/2015 Obesity MAXIMILIAN (obstructive sleep apnea) 10/20/2020 Osteoarthritis Sinus bradycardia FAMILY HISTORY Problem Relation Age of Onset Hypertension Mother Diabetes Mother Prostate Cancer Father Cancer Father Stroke Maternal Grandfather Alcohol/Drug Maternal Grandfather Cancer Paternal Grandmother SOCIAL HISTORY Social History Tobacco Use Smoking status: Never Smokeless tobacco: Never Vaping Use Vaping Use: Never used Substance Use Topics Alcohol use: No Drug use: No PHYSICAL EXAMINATION BP 125/74 Pulse (!) 58 Temp 36.2 C (97.2 F) (Temporal) Resp 16 Wt 118.7 kg (261 lb 9.6 oz) SpO2 97% BMI 36.02 kg/m GENERAL EXAM: General appearance: NAD, pleasant. HEENT: NC/AT, nasal congestion absent, no oral lesions, membranes moist. Lungs: CTA bilaterally. CV: RRR nl S1, S2. No carotid bruits. Abd: Soft, nontender, nondistended. Extr: No cyanosis, clubbing or edema. Skin: Cool to touch. NEUROLOGICAL EXAM: General: Awake, alert, oriented x3 (person,place,time), speech fluent, no dysarthria; comprehension, naming, repetition intact. CN: PERRL, EOMI and without nystagmus, VFF to confrontation, facial sensation and strength are normal and symmetric, hearing is intact, palate and tongue movements are intact and symmetric. SCM and trapezius strength normal. Motor: Normal tone, bulk and strength (5/5) bilaterally (throughout extremities x4). Coordination: FNF, LOLI, HTS intact. No tremors. Sensation: LT intact throughout. No evidence of neglect. Gait: Stable with normal stride and arm swing. Assessment and Plan: ASSESSMENT/PLAN: 1. Obstructive sleep apnea (adult) (pediatric) - ICD9: 327.23, ICD10: G47.33 (primary diagnosis) Patient subjectively and objectively doing well on PAP. Tolerating pressure. AHI controlled. Encouraged compliance. Reminded to clean and replace equipment regularly. Advised not to drive or operate heavy machinery if sleepy. Advised not to drive or operate heavy machinery when sleepy. 2. Restless legs syndrome - ICD9: 333.94, ICD10: G25.81 Stable on gabapentin. Continue dosing as above. SE and ADRs reviewed with pt. Pt reports labs ordered with PCP today. Need to confirm gabapentin still appropriate for most recent Cr Clearance. Await results. Elizabeth Loredo MD I spent a total of 25+ minutes on the date of the service which included preparing to see the patient, [id number] patient care, completing clinical documentation, obtaining and/or reviewing separately obtained history, performing a medically appropriate examination, counseling and educating the patient/family/caregiver, ordering medications, tests, or procedures, independently interpreting results (not separately reported), and communicating results to the patient/family/caregiver (results = PAP download). PDMP website checked and validated. All prescriptions have been APPROPRIATELY filled. No suspicious activity was identified. 06/13/2022 by Elizabeth Loredo MD documented in this encounter [facility] 05-02-2022 Miscellaneous Notes Last virtual visit was 06/19/2020 Due for labs and exam. Seeing Silvia 05/16/2022 for physical. Will need to schedule follow with me at some point. The following approved medication requests have been transmitted electronically. Requested Prescriptions Signed Prescriptions Disp Refills allopurinol (ZYLOPRIM) 300 mg tablet 30 tablet 2 Sig: Take 1 tablet by mouth once daily. Authorizing Provider: Bandar GRAF PA-C Patient phones requesting refills as follows: Requested Prescriptions Pending Prescriptions Disp Refills allopurinol (ZYLOPRIM) 300 mg tablet 30 tablet 11 Sig: Take 1 tablet by mouth once daily. ENIO 06/19/20 (vv); 05/06/19 (in person) NOV no upcoming appt *Pt is overdue for Annual appt with PCP. [employer] message to pt advising of the same. Awaiting response. Please review and advise. Francis Cobos LPN documented in this encounter [facility] 03-23-2022 Miscellaneous Notes Received request for prescription by fax from Tami Rodriguez. Form is placed in the provider's in box for signature. Will fax to Tami Rodriguez after signed. documented in this encounter [facility] 01-21-2022 History of Presen t illness Narrative CC: Patient presents with: Head Congestion: Fever, chills, SCHWAB, cough x 3 days HPI: Lynn Dominguez is a 66 year old male who presents to the office with complaint of respiratory symptoms, head congestion, cough, nonproductive, and fever for a few days. Symptoms are worsening Associated symptoms includes headache and chills. Denies ear pain, nausea, vomiting , and diarrhea. Treatments tried include nothing so far. with no relief of symptoms. Sick contacts: unknown. History of asthma, frequent episodes of bronchitis, chronic bronchitis, bronchiectasis or COPD: No Smoker: No Seasonal/environmental allergies: No The ROS is otherwise negative. The patient's pmh, medications, allergies, and past visits are reviewed. PHYSICAL EXAM: BP 114/66 Pulse 69 Temp 37.2 C (98.9 F) Resp 21 Wt 118.3 kg (260 lb 12.8 oz) SpO2 98% BMI 36.37 kg/m General appearance: alert, cooperative, pleasant, in no acute distress Head: Normocephalic Eyes: EOM's intact, conjunctiva pink and moist, no icterus, sclera white, non-injected Ears: Right ear: External ear/canal- Normal, TM - clear with good landmarks. Left ear: External ear/canal- Normal, TM - clear with good landmarks Heart: Negative. RRR without obvious murmur, gallop, or rubs. No ectopy. Lungs: clear to auscultation, without rales or wheeze, good air exchange PAST MEDICAL HISTORY Diagnosis Date Ascending aorta dilatation (HCC) Basal cell cancer Decreased peripheral vision of left eye Essential hypertension 07/06/2021 GERD (gastroesophageal reflux disease) Gout Jeffry's thyroiditis with thyroid nodules Mild left ventricular systolic dysfunction Mild pulmonary hypertension (HCC) Mixed hyperlipidemia 11/16/2015 Obesity MAXIMILIAN (obstructive sleep apnea) 10/20/2020 Osteoarthritis Sinus bradycardia PAST SURGICAL HISTORY Procedure Laterality Date COLONOSCOPY 04-04-14 repeat in 10 yrs INT REPAIR SCALP,SYDNI,TRUNK <2.5CM 12-23-10 PAST SURGICAL HISTORY OF left knee PAST SURGICAL HISTORY OF right hammer toe PAST SURGICAL HISTORY OF left hammer toe REM LESION TRUNK,ARM, LEG <0.5 CM 12-23-10 THYROIDECTOMY TOTAL/COMPLETE 12-23-10 ALLERGIES Patient has no known allergies. MEDICATIONS Ipratropium [place] (ATROVENT) 21 mcg (0.03 %) nasal spray^Use 2 Sprays in the nose every 12 hours.^Disp: 3.5 mL^Rfl: 5 gabapentin (NEURONTIN) 300 mg capsule^Take 1 capsules after arriving home from work and then 2 capsules at approximately 7 PM.^Disp: 270 capsule^Rfl: 1 fluocinonide (LIDEX) 0.05 % external solution^Apply 1 application to affected area twice daily.^Disp: 60 mL^Rfl: 1 lisinopril (ZESTRIL, PRINIVIL) 5 mg tablet^Take 1 tablet by mouth once daily.^Disp: 90 tablet^Rfl: 3 lovastatin 40 mg tablet^Take 1 tablet by mouth daily at bedtime.^Disp: 90 tablet^Rfl: 3 Vitamin E, dl, acetate, (VITAMIN E) 134 mg (200 unit) Capsule^Take by mouth once daily.^Disp: ^Rfl: omega 0-gno-urx-fish oil (FISH OIL) 100-160-1,000 mg cap^Take by mouth.^Disp: ^Rfl: ascorbic acid (SUSAN-C ORAL)^Take by mouth.^Disp: ^Rfl: levothyroxine (SYNTHROID) 137 mcg tablet^Take 1 tablet by mouth once daily. Except none on sundays^Disp: 90 tablet^Rfl: 4 allopurinol (ZYLOPRIM) 300 mg tablet^Take 1 tablet by mouth once daily.^Disp: 30 tablet^Rfl: 11 CPAP^AutoPAP with humidification set at a range of 5-16 cmH2O. Lifetime supplies. Please fit with [employer]ar under nose FFM. Please provide us download after 4 weeks of use.^Disp: 1 Device^Rfl: 99 Cholecalciferol, Vitamin D3, 50 mcg (2,000 unit) cap^Take 1 capsule by mouth once daily.^Disp: ^Rfl: FAMILY HISTORY Problem Relation Age of Onset Hypertension Mother Diabetes Mother Prostate Cancer Father Cancer Father Stroke Maternal Grandfather Alcohol/Drug Maternal Grandfather Cancer Paternal Grandmother Social History Tobacco Use Smoking status: Never Smokeless tobacco: Never Vaping Use Vaping Use: Never used Substance Use Topics Alcohol use: No Drug use: No ASSESSMENT/PLAN: 1. At increased risk of exposure to COVID-19 virus - ICD9: V15.89, ICD10: Z91.89 (primary diagnosis) - COVID WITH FLUA+B, ROUTINE 2. Acute upper respiratory infection, unspecified - ICD9: 465.9, ICD10: J06.9 - COVID WITH FLUA+B, ROUTINE Prescription instructions reviewed with patient as applicable. Potential red flag symptoms discussed with the patient. Reviewed appropriate action plan to take if red flag symptoms occur. Patient agreeable to treatment plan. Millie Wolf APRN.CNP documented in this encounter [facility] 12-27-2021 Miscellaneous Notes Called PT talked to the she will cancel appointment for Echo on 01/03/22 after talking to Natalie Reeves CNP. Echo is not needed at this time. Pt states she understands. Patient already had the Echo done in Jul that was ordered by me Pt is scheduled for 01/03/22 for Echo in [place] at 8 am Pended order for Echo Patient called and states she looked at [facility] and was surprised the echo was cancelled for 12/27/21. The order was not unlinked, so therefore please add another order for his 01/03/22 appointment in [place] for his echocardiogram. Thank you. Patient called and states she looked at [facility] and was surprised the echo was cancelled for 12/27/21. The order was not unlinked, so therefore please add another order for his 01/03/22 appointment in [place] for his echocardiogram. Thank you. 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 On review of data off CPAP, no changes are required to be made. Comfort noted, and control of OSAs. RLS mostly managed with Gabapentin 600 mg HS. He has tried 900 mg without notable difference. He has not tried spacing Gabapentin dosing, and we discussed doing so for optimal control. PDMP website checked and validated. All prescriptions have been APPROPRIATELY filled. No suspicious activity was identified. 10/20/2020 by Billie Maurice APRN.W[employer] B[employer]OX MACHINE HELPER Plan: - Continue Auto CPAP - Remember to clean your mask and equipment regularly, as directed. - You should be eligible for new supplies approximately every 3-6 months, depending on your insurance coverage. Contact your Durable Medical Equipment (DME) company for new supplies as needed. - Nonmedical therapy for restless legs syndrome includes : cold/warm compresses, warm/hot baths or showers, gentle massage, mild leg stretching at nighttime, or magnesium supplements ( 250- 1000 mg at nighttime daily). Mentally alerting activities help too. Note the caffeine, alcohol, nicotine, antidepressants, anti-nausea meds and antihistamines can cause or worsen symptoms. See Porphyrio message. - iron studies at next office visit follow up - order placed to complete prior - Gabapentin 600 - 900 mg HS - discussed spacing dosing for optimal control - Consider CBT-I in the future once completed with shift work PAP data download for past 90 days shows nightly use for avg of 7 hours and 34 minutes. AHi is 0.8 with 95% pressure of 8.9 cmH2O (set at 5-16 cmH2O). 95% leak is 10.1 LPM. Patient feels he is doing good. states that she no longer wakes due to pt's snoring or his twisting and turning. Only time waking is to empty bladder x1. Always sleeps on left side. Goes to bed at 9PM and up at 3AM. Remains on shift work schedule -- gets off work at 5PM. Feels awake upon getting up in the AM. Not dozing off at work or falling asleep driving. No issues falling asleep. No issues with RLS. Usually taking 600mg of gabapentin nightly. Does not notice a big difference if taking 900mg. Taking gabapentin about 7PM. RLS symptoms start at about 5-6 PM. No other new medical conditions or medications. Sleep Questionnaire Data Depression Screening 07/12/2020 10/13/2020 11/24/2021 PHQ-2 Score 0 3 0 PHQ-9 Score 0 3 0 PED PHQ-9 07/12/2020 10/13/2020 11/24/2021 Little interest or pleasure in doing things Not at all Nearly every day Not at all Feeling down, depressed, or hopeless Not at all Not at all Not at all Trouble falling or staying asleep, or sleeping too much Not at all Not at all Not at all Feeling tired or having little energy Not at all Not at all Not at all Poor appetite or overeating Not at all Not at all Not at all Feeling bad about yourself - or that you are a failure or have let yourself or your family down Not at all Not at all Not at all Trouble concentrating on things, such as reading the newspaper or watching television Not at all Not at all Not at all Moving or speaking so slowly that other people could have noticed. Or the opposite - being so fidgety or restless that you have been moving around a lot more than usual Not at all Not at all Not at all Thoughts that you would be better off , or of hurting yourself in some way Not at all Not at all Not at all If you checked off any problems, how difficult have these problems made it for you to do your work, take care of things at home, or get along with other people? Not difficult at all - - PHQ-9 Score 0 (None-Minimal Depression) 3 (None-Minimal Depression) 0 (None-Minimal Depression) Velarde Sleepiness Scale 07/12/2020 10/13/2020 11/24/2021 Score - 0 (No daytime sleepiness) 0 (No daytime sleepiness) REVIEW OF SYSTEMS GENERAL:No weight loss, malaise or fevers. HEENT:Negative for frequent or significant headaches, No changes in hearing or vision, no nose bleeds or other nasal problems RESPIRATORY: Negative for cough, wheezing or shortness of breath. CARDIOVASCULAR: Negative for chest pain, leg swelling or palpitations. GASTROINTESTINAL: Negative for abdominal discomfort, blood in stools or black stools or change in bowel habits GENITOURINARY: No history of dysuria, frequency or incontinence NEUROLOGIC:Negative for focal numbness or weakness, headaches and dizziness or syncope, vision changes, speech/languag changes - EXCEPT that as per HPI above. SKIN:Negative for lesions, rash, and itching. LAB/IMAGING: Those performed since patient's last visit have been reviewed. WBC (k/uL) Date Value 06/01/2020 5.88 RBC (m/uL) Date Value 06/01/2020 4.72 Hemoglobin (g/dL) Date Value 06/01/2020 13.7 Hematocrit (%) Date Value 06/01/2020 42.9 MCV (fL) Date Value 06/01/2020 90.9 MCH (pG) Date Value 06/01/2020 29.0 MCHC (g/dL) Date Value 06/01/2020 31.9 RDW-CV (%) Date Value 06/01/2020 13.0 Platelet Count (k/uL) Date Value 06/01/2020 209 MPV (fL) Date Value 06/01/2020 11.0 Glucose (mg/dL) Date Value 06/01/2020 93 BUN (mg/dL) Date Value 06/01/2020 19 Creatinine (mg/dL) Date Value 06/01/2020 1.26 (H) Sodium (mmol/L) Date Value 06/01/2020 142 Potassium (mmol/L) Date Value 06/01/2020 4.3 Chloride (mmol/L) Date Value 06/01/2020 106 (H) CO2 (mmol/L) Date Value 06/01/2020 27 Protein, Total (g/dL) Date Value 06/01/2020 6.4 Albumin (g/dL) Date Value 06/01/2020 3.9 Calcium (mg/dL) Date Value 06/01/2020 9.5 Alkaline Phosphatase (U/L) Date Value 06/01/2020 69 Bilirubin, Total (mg/dL) Date Value 06/01/2020 0.3 AST (U/L) Date Value 06/01/2020 20 ALT (U/L) Date Value 06/01/2020 18 Hep C Antibody IA (no units) Date Value 11/16/2015 Negative Vitamin D 25 Hydroxy (ng/mL) Date Value 10/04/2021 41.2 10/17/2013 48.7 ] MEDICATIONS: gabapentin (NEURONTIN) 300 mg capsule Take 1 to 3 capsules 1 hour before bedtime as directed. fluocinonide (LIDEX) 0.05 % external solution Apply 1 application to affected area twice daily. lisinopril (ZESTRIL, PRINIVIL) 5 mg tablet Take 1 tablet by mouth once daily. lovastatin 40 mg tablet Take 1 tablet by mouth daily at bedtime. Vitamin E, dl, acetate, (VITAMIN E) 134 mg (200 unit) Capsule Take by mouth once daily. omega 6-mfp-iqn-fish oil (FISH OIL) 100-160-1,000 mg cap Take by mouth. ascorbic acid (SUSAN-C ORAL) Take by mouth. levothyroxine (SYNTHROID) 137 mcg tablet Take 1 tablet by mouth once daily. Except none on sundays allopurinol (ZYLOPRIM) 300 mg tablet Take 1 tablet by mouth once daily. Ipratropium [place] (ATROVENT) 0.03 % nasal spray Use 2 Sprays in the nose every 12 hours. CPAP AutoPAP with humidification set at a range of 5-16 cmH2O. Lifetime supplies. Please fit with [employer] under nose FFM. Please provide us download after 4 weeks of use. Cholecalciferol, Vitamin D3, (VITAMIN D-3) 2,000 unit cap Take 1 capsule by mouth once daily. HISTORIES PAST MEDICAL HISTORY Diagnosis Date Ascending aorta dilatation (HCC) Basal cell cancer Decreased peripheral vision of left eye Essential hypertension 07/06/2021 GERD (gastroesophageal reflux disease) Gout Jeffry's thyroiditis with thyroid nodules Mild left ventricular systolic dysfunction Mild pulmonary hypertension (HCC) Mixed hyperlipidemia 11/16/2015 Obesity MAXIMILIAN (obstructive sleep apnea) 10/20/2020 Osteoarthritis Sinus bradycardia FAMILY HISTORY Problem Relation Age of Onset Hypertension Mother Diabetes Mother Prostate Cancer Father Cancer Father Stroke Maternal Grandfather Alcohol/Drug Maternal Grandfather Cancer Paternal Grandmother SOCIAL HISTORY Social History Tobacco Use Smoking status: Never Smoker Smokeless tobacco: Never Used Vaping Use Vaping Use: Never used Substance Use Topics Alcohol use: No Drug use: No PHYSICAL EXAMINATION BP 122/77 Pulse (!) 53 Wt 118.4 kg (261 lb) SpO2 96% BMI 36.40 kg/m GENERAL EXAM: General appearance: NAD, pleasant. HEENT: NC/AT, nasal congestion absent, no oral lesions, membranes moist. NECK: No masses, supple. Lungs: CTA bilaterally. No wheezes present. CV: RRR nl S1, S2. Extr: No cyanosis, clubbing or edema. Skin: Cool to touch. NEUROLOGICAL EXAM: General: Awake, alert, oriented x3 (person,place,time), speech fluent, no dysarthria; comprehension, naming, repetition intact. CN: PERRL, EOMI and without nystagmus, VFF to confrontation, facial sensation and strength are normal and symmetric, hearing is intact to finger rub bilaterally, palate and tongue movements are intact and symmetric. SCM and trapezius strength normal. Motor: Normal tone, bulk and strength (5/5) bilaterally (throughout extremities x4). Coordination: FNF, LOLI, HTS intact. No tremors. Sensation: Light touch intact throughout. No evidence of neglect. Gait: Stable with normal stride and arm swing. Assessment and Plan: ASSESSMENT/PLAN: 1. MAXIMILIAN (obstructive sleep apnea) - ICD9: 327.23, ICD10: G47.33 (primary diagnosis) Doing well subjectively and objectively on PAP therapy. No mask or pressure complaints. Encouraged PAP compliance. Reminded to clean and replace equipment regularly. Advised not to drive or operate heavy machinery when sleepy. 2. Restless legs syndrome - ICD9: 333.94, ICD10: G25.81 Symptoms start prior to taking gabapentin. Thus, will adjust dosing such that patient takes gabapentin 300mg at 5PM after arriving home from work (prior to onset of symptoms) and then continues with 600mg at 7PM as taking now. SE and ADRs reviewed with pt. OK dose based on renal function. Follow up in Jun 2021. Elizabeth Loredo MD I spent a total of 30+ minutes on the date of the service which included preparing to see the patient, [id number] patient care, completing clinical documentation, obtaining and/or reviewing separately obtained history, performing a medically appropriate examination, counseling and educating the patient/family/caregiver, ordering medications, tests, or procedures, independently interpreting results (not separately reported) and communicating results to the patient/family/caregiver. PDMP website checked and validated. All prescriptions have been APPROPRIATELY filled. No suspicious activity was identified. 11/25/2021 by Elizabeth Loredo MD documented in this encounter [facility] 11-25-2021 Miscellaneous Notes Patient has been identified by name and date of : Yes Patient phones for refill(s): Pending Prescriptions Disp Refills IPRATROPIUM BROMIDE 21 MCG (0.03 %) NASAL SPRAY Sig: Use 2 Sprays in the nose every 12 hours. BARBARA: No Date of last office visit in primary care: 08/11/21 Please advise. Thank you. Zoraida Jackson LPN documented in this encounter [facility] 11-02-2021 Miscellaneous Notes I checked the schedule to see if there was anything available. There are no open slots in the next month. Is it ok for patient to wait till already scheduled appointment. Please review pictures and advise patient. Thanks! documented in this encounter [facility] 09-20-2021 Miscellaneous Notes Spoke to patient's . Per patient's patient had some tenderness at previous mohs biopsy site over the weekend. Mohs done 12/2012. Per patients there is no visible area of concern. Patient denies pain at site today. I encourage patient to contact office for appointment if area becomes painful in the future. Patient verbalizes understanding and has no further questions at this time. Patient's is calling in stating that the area he had his Mohs procedure done awhile ago was tender to the touch over the weekend. She would like to speak with a Nurse about this; she is not sure what to do. documented in this encounter [facility] documented as of this encounter (statuses as of 09/20/2021) [facility] History of Past illness Narrative* Problem Noted Date Resolved Date Thoracic aortic aneurysm without rupture 020 07/06/2021 Overview: 05/17/19 Echo ;Mid ascending aorta 4.2 cm. 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 Neoplasm of Uncertain Behavi or(NUB) of skin: R/O BCC vs SCC vs other Skin Cancer: L side nose 08/23/2012 09/21/2012 R/O BCC (basal cell carcinoma), face: L side nos e 08/23/2012 09/21/2012 Actinic Keratoses (Premalignant AK's) 08/23/2012 05/02/2016 Scar condition and fibrosis of skin 08/23/2012 05/02/2016 Solar lentigo 08/23/2012 05/02/2016 Other seborrheic keratosis 08/23/201205/02 Actinic skin damage 08/23/2012 05/02/2016 Pulsatile tinnitus 10/13/2010 09/21/2012 documented as of this encounter (statuses as of 11/16/2021) [facility] History of Past illness Narrative* Problem Noted Date Resolved Date Thoracic aortic aneurysm without rupture 020 07/06/2021 Overview: 05/17/19 Echo ;Mid ascending aorta 4.2 cm. 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 Neoplasm of Uncertain Behavi or(NUB) of skin: R/O BCC vs SCC vs other Skin Cancer: L side nose 08/23/2012 09/21/2012 R/O BCC (basal cell carcinoma), face: L side nos e 08/23/2012 09/21/2012 Actinic Keratoses (Premalignant AK's) 08/23/2012 05/02/2016 Scar condition and fibrosis of skin 08/23/2012 05/02/2016 Solar lentigo 08/23/2012 05/02/2016 Other seborrheic keratosis 08/23/201205/02 Actinic skin damage 08/23/2012 05/02/2016 Pulsatile tinnitus 10/13/2010 09/21/2012 documented as of this encounter (statuses as of 11/25/2021) [facility] History of Past illness Narrative* Problem Noted Date Resolved Date Thoracic aortic aneurysm without rupture 020 07/06/2021 Overview: 05/17/19 Echo ;Mid ascending aorta 4.2 cm. 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 Neoplasm of Uncertain Behavi or(NUB) of skin: R/O BCC vs SCC vs other Skin Cancer: L side nose 08/23/2012 09/21/2012 R/O BCC (basal cell carcinoma), face: L side nos e 08/23/2012 09/21/2012 Actinic Keratoses (Premalignant AK's) 08/23/2012 05/02/2016 Scar condition and fibrosis of skin 08/23/2012 05/02/2016 Solar lentigo 08/23/2012 05/02/2016 Other seborrheic keratosis 08/23/201205/02 Actinic skin damage 08/23/2012 05/02/2016 Pulsatile tinnitus 10/13/2010 09/21/2012 documented as of this encounter (statuses as of 11/25/2021) [facility] History of Past illness Narrative* Problem Noted Date Resolved Date Thoracic aortic aneurysm without rupture 020 07/06/2021 Overview: 05/17/19 Echo ;Mid ascending aorta 4.2 cm. 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 Neoplasm of Uncertain Behavi or(NUB) of skin: R/O BCC vs SCC vs other Skin Cancer: L side nose 08/23/2012 09/21/2012 R/O BCC (basal cell carcinoma), face: L side nos e 08/23/2012 09/21/2012 Actinic Keratoses (Premalignant AK's) 08/23/2012 05/02/2016 Scar condition and fibrosis of skin 08/23/2012 05/02/2016 Solar lentigo 08/23/2012 05/02/2016 Other seborrheic keratosis 08/23/201205/02 Actinic skin damage 08/23/2012 05/02/2016 Pulsatile tinnitus 10/13/2010 09/21/2012 documented as of this encounter (statuses as of 12/27/2021) [facility] History of Past illness Narrative* Problem Noted Date Resolved Date Thoracic aortic aneurysm without rupture 020 07/06/2021 Overview: 05/17/19 Echo ;Mid ascending aorta 4.2 cm. 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 Neoplasm of Uncertain Behavi or(NUB) of skin: R/O BCC vs SCC vs other Skin Cancer: L side nose 08/23/2012 09/21/2012 R/O BCC (basal cell carcinoma), face: L side nos e 08/23/2012 09/21/2012 Actinic Keratoses (Premalignant AK's) 08/23/2012 05/02/2016 Scar condition and fibrosis of skin 08/23/2012 05/02/2016 Solar lentigo 08/23/2012 05/02/2016 Other seborrheic keratosis 08/23/201205/02 Actinic skin damage 08/23/2012 05/02/2016 Pulsatile tinnitus 10/13/2010 09/21/2012 documented as of this encounter (statuses as of 01/21/2022) [facility] History of Past illness Narrative* Problem Noted Date Resolved Date Thoracic aortic aneurysm without rupture 020 07/06/2021 Overview: 05/17/19 Echo ;Mid ascending aorta 4.2 cm. 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 Neoplasm of Uncertain Behavi or(NUB) of skin: R/O BCC vs SCC vs other Skin Cancer: L side nose 08/23/2012 09/21/2012 R/O BCC (basal cell carcinoma), face: L side nos e 08/23/2012 09/21/2012 Actinic Keratoses (Premalignant AK's) 08/23/2012 05/02/2016 Scar condition and fibrosis of skin 08/23/2012 05/02/2016 Solar lentigo 08/23/2012 05/02/2016 Other seborrheic keratosis 08/23/201205/02 Actinic skin damage 08/23/2012 05/02/2016 Pulsatile tinnitus 10/13/2010 09/21/2012 documented as of this encounter (statuses as of 03/23/2022) [facility] History of Past illness Narrative* Problem Noted Date Resolved Date Thoracic aortic aneurysm without rupture 020 07/06/2021 Overview: 05/17/19 Echo ;Mid ascending aorta 4.2 cm. 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 Neoplasm of Uncertain Behavi or(NUB) of skin: R/O BCC vs SCC vs other Skin Cancer: L side nose 08/23/2012 09/21/2012 R/O BCC (basal cell carcinoma), face: L side nos e 08/23/2012 09/21/2012 Actinic Keratoses (Premalignant AK's) 08/23/2012 05/02/2016 Scar condition and fibrosis of skin 08/23/2012 05/02/2016 Solar lentigo 08/23/2012 05/02/2016 Other seborrheic keratosis 08/23/201205/02 Actinic skin damage 08/23/2012 05/02/2016 Pulsatile tinnitus 10/13/2010 09/21/2012 documented as of this encounter (statuses as of 05/03/2022) [facility] History of Past illness Narrative* Problem Noted Date Resolved Date Thoracic aortic aneurysm without rupture 020 07/06/2021 Overview: 05/17/19 Echo ;Mid ascending aorta 4.2 cm. 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 Neoplasm of Uncertain Behavi or(NUB) of skin: R/O BCC vs SCC vs other Skin Cancer: L side nose 08/23/2012 09/21/2012 R/O BCC (basal cell carcinoma), face: L side nos e 08/23/2012 09/21/2012 Actinic Keratoses (Premalignant AK's) 08/23/2012 05/02/2016 Scar condition and fibrosis of skin 08/23/2012 05/02/2016 Solar lentigo 08/23/2012 05/02/2016 Other seborrheic keratosis 08/23/201205/02 Actinic skin damage 08/23/2012 05/02/2016 Pulsatile tinnitus 10/13/2010 09/21/2012 documented as of this encounter (statuses as of 06/13/2022) [facility] of Past illness Narrative* Problem Noted Date Resolved Date Thoracic aortic aneurysm without rupture 020 07/06/2021 Overview: 05/17/19 Echo ;Mid ascending aorta 4.2 cm. 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 Neoplasm of Uncertain Behavi or(NUB) of skin: R/O BCC vs SCC vs other Skin Cancer: L side nose 08/23/2012 09/21/2012 R/O BCC (basal cell carcinoma), face: L side nos e 08/23/2012 09/21/2012 Actinic Keratoses (Premalignant AK's) 08/23/2012 05/02/2016 Scar condition and fibrosis of skin 08/23/2012 05/02/2016 Solar lentigo 08/23/2012 05/02/2016 Other seborrheic keratosis 08/23/201205/02 Actinic skin damage 08/23/2012 05/02/2016 Pulsatile tinnitus 10/13/2010 09/21/2012 documented as of this encounter (statuses as of 06/23/2022) [facility] Past [facility] Narrative* Problem Noted Date Resolved Date Thoracic aortic aneurysm without rupture 020 07/06/2021 Overview: 05/17/19 Echo ;Mid ascending aorta 4.2 cm. 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 Neoplasm of Uncertain Behavi or(NUB) of skin: R/O BCC vs SCC vs other Skin Cancer: L side nose 08/23/2012 09/21/2012 R/O BCC (basal cell carcinoma), face: L side nos e 08/23/2012 09/21/2012 Actinic Keratoses (Premalignant AK's) 08/23/2012 05/02/2016 Scar condition and fibrosis of skin 08/23/2012 05/02/2016 Solar lentigo 08/23/2012 05/02/2016 Other seborrheic keratosis 08/23/201205/02 Actinic skin damage 08/23/2012 05/02/2016 Pulsatile tinnitus 10/13/2010 09/21/2012 documented as of this encounter (statuses as of 07/06/2022) [facility] of Past [facility] Narrative* Problem Noted Date Resolved Date Thoracic aortic aneurysm without rupture 020 07/06/2021 Overview: 05/17/19 Echo ;Mid ascending aorta 4.2 cm. 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 Neoplasm of Uncertain Behavi or(NUB) of skin: R/O BCC vs SCC vs other Skin Cancer: L side nose 08/23/2012 09/21/2012 R/O BCC (basal cell carcinoma), face: L side nos e 08/23/2012 09/21/2012 Actinic Keratoses (Premalignant AK's) 08/23/2012 05/02/2016 Scar condition and fibrosis of skin 08/23/2012 05/02/2016 Solar lentigo 08/23/2012 05/02/2016 Other seborrheic keratosis 08/23/201205/02 Actinic skin damage 08/23/2012 05/02/2016 Pulsatile tinnitus 10/13/2010 09/21/2012 documented as of this encounter (statuses as of 08/02/2022) [facility] of Past [facility] Narrative* Problem Noted Date Resolved Date Thoracic aortic aneurysm without rupture 020 07/06/2021 Overview: 05/17/19 Echo ;Mid ascending aorta 4.2 cm. 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 Neoplasm of Uncertain Behavi or(NUB) of skin: R/O BCC vs SCC vs other Skin Cancer: L side nose 08/23/2012 09/21/2012 R/O BCC (basal cell carcinoma), face: L side nos e 08/23/2012 09/21/2012 Actinic Keratoses (Premalignant AK's) 08/23/2012 05/02/2016 Scar condition and fibrosis of skin 08/23/2012 05/02/2016 Solar lentigo 08/23/2012 05/02/2016 Other seborrheic keratosis 08/23/201205/02 Actinic skin damage 08/23/2012 05/02/2016 Pulsatile tinnitus 10/13/2010 09/21/2012 documented as of this encounter (statuses as of 09/15/2022) [facility] Past [facility] Narrative* Problem Noted Date Resolved Date Thoracic aortic aneurysm without rupture 020 07/06/2021 Overview: 05/17/19 Echo ;Mid ascending aorta 4.2 cm. 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 Neoplasm of Uncertain Behavi or(NUB) of skin: R/O BCC vs SCC vs other Skin Cancer: L side nose 08/23/2012 09/21/2012 R/O BCC (basal cell carcinoma), face: L side nos e 08/23/2012 09/21/2012 Actinic Keratoses (Premalignant AK's) 08/23/2012 05/02/2016 Scar condition and fibrosis of skin 08/23/2012 05/02/2016 Solar lentigo 08/23/2012 05/02/2016 Other seborrheic keratosis 08/23/201205/02 Actinic skin damage 08/23/2012 05/02/2016 Pulsatile tinnitus 10/13/2010 09/21/2012 documented as of this encounter (statuses as of 09/15/2022) [facility] History of Past illness Narrative* Problem Noted Date Resolved Date Thoracic aortic aneurysm without rupture 020 07/06/2021 Overview: 05/17/19 Echo ;Mid ascending aorta 4.2 cm. 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 Neoplasm of Uncertain Behavi or(NUB) of skin: R/O BCC vs SCC vs other Skin Cancer: L side nose 08/23/2012 09/21/2012 R/O BCC (basal cell carcinoma), face: L side nos e 08/23/2012 09/21/2012 Actinic Keratoses (Premalignant AK's) 08/23/2012 05/02/2016 Scar condition and fibrosis of skin 08/23/2012 05/02/2016 Solar lentigo 08/23/2012 05/02/2016 Other seborrheic keratosis 08/23/201205/02 Actinic skin damage 08/23/2012 05/02/2016 Pulsatile tinnitus 10/13/2010 09/21/2012 documented as of this encounter (statuses as of 11/02/2022) [facility] History of Past illness Narrative* Problem Noted Date Resolved Date Thoracic aortic aneurysm without rupture 020 07/06/2021 Overview: 05/17/19 Echo ;Mid ascending aorta 4.2 cm. 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 Neoplasm of Uncertain Behavi or(NUB) of skin: R/O BCC vs SCC vs other Skin Cancer: L side nose 08/23/2012 09/21/2012 R/O BCC (basal cell carcinoma), face: L side nos e 08/23/2012 09/21/2012 Actinic Keratoses (Premalignant AK's) 08/23/2012 05/02/2016 Scar condition and fibrosis of skin 08/23/2012 05/02/2016 Solar lentigo 08/23/2012 05/02/2016 Other seborrheic keratosis 08/23/201205/02 Actinic skin damage 08/23/2012 05/02/2016 Pulsatile tinnitus 10/13/2010 09/21/2012 documented as of this encounter (statuses as of 11/09/2022) [facility] History of Past illness Narrative* Problem Noted Date Resolved Date Thoracic aortic aneurysm without rupture 020 07/06/2021 Overview: 05/17/19 Echo ;Mid ascending aorta 4.2 cm. 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 Neoplasm of Uncertain Behavi or(NUB) of skin: R/O BCC vs SCC vs other Skin Cancer: L side nose 08/23/2012 09/21/2012 R/O BCC (basal cell carcinoma), face: L side nos e 08/23/2012 09/21/2012 Actinic Keratoses (Premalignant AK's) 08/23/2012 05/02/2016 Scar condition and fibrosis of skin 08/23/2012 05/02/2016 Solar lentigo 08/23/2012 05/02/2016 Other seborrheic keratosis 08/23/201205/02 Actinic skin damage 08/23/2012 05/02/2016 Pulsatile tinnitus 10/13/2010 09/21/2012 documented as of this encounter (statuses as of 11/10/2022) [facility] History of Past illness Narrative* Problem Noted Date Diagnosed Date Resolved Date Thoracic aortic aneurysm without rupture 07/08/2019 07/06/2021 Overview: 05/17/19 Echo ;Mid ascending aorta 4.2 cm. 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 Neoplasm of Uncertain Behavi or(NUB) of skin: R/O BCC vs SCC vs other Skin Cancer: L side nose 08/23/2012 09/21/2012 R/O BCC (basal cell carcinom a), face: L side nose 08/23/2012 09/21/2012 Actinic Keratoses (Premalignant AK's) 08/23/2012 05/02/2016 Scar condition and fibrosis of skin 08/23/2012 05/02/2016 Solar lentigo 08/23/2012 05/02/2016 Other seborrheic keratosis 08/23/2012 1 07/02/2015 Actinic skin damage 08/23/2012 05/02/20 16 Pulsatile tinnitus 10/13/2010 3 documented as of this encounter (statuses as of 12/12/2022) [facility] History of Past illness Narrative* Problem Noted Date Diagnosed Date Resolved Date Thoracic aortic aneurysm without rupture 07/08/2019 07/06/2021 Overview: 05/17/19 Echo ;Mid ascending aorta 4.2 cm. 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 Neoplasm of Uncertain Behavi or(NUB) of skin: R/O BCC vs SCC vs other Skin Cancer: L side nose 08/23/2012 09/21/2012 R/O BCC (basal cell carcinom a), face: L side nose 08/23/2012 09/21/2012 Actinic Keratoses (Premalignant AK's) 08/23/2012 05/02/2016 Scar condition and fibrosis of skin 08/23/2012 05/02/2016 Solar lentigo 08/23/2012 05/02/2016 Other seborrheic keratosis 08/23/2012 1 07/02/2015 Actinic skin damage 08/23/2012 05/02/20 16 Pulsatile tinnitus 10/13/2010 3 documented as of this encounter (statuses as of 12/14/2022) [facility] of Past illness Narrative* Problem Noted Date Diagnosed Date Resolved Date Thoracic aortic aneurysm without rupture 07/08/2019 07/06/2021 Overview: 05/17/19 Echo ;Mid ascending aorta 4.2 cm. 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 Neoplasm of Uncertain Behavi or(NUB) of skin: R/O BCC vs SCC vs other Skin Cancer: L side nose 08/23/2012 09/21/2012 R/O BCC (basal cell carcinom a), face: L side nose 08/23/2012 09/21/2012 Actinic Keratoses (Premalignant AK's) 08/23/2012 05/02/2016 Scar condition and fibrosis of skin 08/23/2012 05/02/2016 Solar lentigo 08/23/2012 05/02/2016 Other seborrheic keratosis 08/23/2012 1 07/02/2015 Actinic skin damage 08/23/2012 05/02/20 16 Pulsatile tinnitus 10/13/2010 3 documented as of this encounter (statuses as of 01/12/2023) [facility] of Past illness Narrative* Problem Noted Date Diagnosed Date Resolved Date Thoracic aortic aneurysm without rupture 07/08/2019 07/06/2021 Overview: 05/17/19 Echo ;Mid ascending aorta 4.2 cm. 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 Neoplasm of Uncertain Behavi or(NUB) of skin: R/O BCC vs SCC vs other Skin Cancer: L side nose 08/23/2012 09/21/2012 R/O BCC (basal cell carcinom a), face: L side nose 08/23/2012 09/21/2012 Actinic Keratoses (Premalignant AK's) 08/23/2012 05/02/2016 Scar condition and fibrosis of skin 08/23/2012 05/02/2016 Solar lentigo 08/23/2012 05/02/2016 Other seborrheic keratosis 08/23/2012 1 07/02/2015 Actinic skin damage 08/23/2012 05/02/20 16 Pulsatile tinnitus 10/13/2010 3 documented as of this encounter (statuses as of 03/03/2023) [facility] History of Past illness Narrative* Problem Noted Date Diagnosed Date Resolved Date Thoracic aortic aneurysm without rupture 07/08/2019 07/06/2021 Overview: 05/17/19 Echo ;Mid ascending aorta 4.2 cm. 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 Neoplasm of Uncertain Behavi or(NUB) of skin: R/O BCC vs SCC vs other Skin Cancer: L side nose 08/23/2012 09/21/2012 R/O BCC (basal cell carcinom a), face: L side nose 08/23/2012 09/21/2012 Actinic Keratoses (Premalignant AK's) 08/23/2012 05/02/2016 Scar condition and fibrosis of skin 08/23/2012 05/02/2016 Solar lentigo 08/23/2012 05/02/2016 Other seborrheic keratosis 08/23/2012 1 07/02/2015 Actinic skin damage 08/23/2012 05/02/20 16 Pulsatile tinnitus 10/13/2010 3 documented as of this encounter (statuses as of 03/17/2023) [facility] of Past illness Narrative* Problem Noted Date Diagnosed Date Resolved Date Thoracic aortic aneurysm without rupture 07/08/2019 07/06/2021 Overview: 05/17/19 Echo ;Mid ascending aorta 4.2 cm. 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 Neoplasm of Uncertain Behavi or(NUB) of skin: R/O BCC vs SCC vs other Skin Cancer: L side nose 08/23/2012 09/21/2012 R/O BCC (basal cell carcinom a), face: L side nose 08/23/2012 09/21/2012 Actinic Keratoses (Premalignant AK's) 08/23/2012 05/02/2016 Scar condition and fibrosis of skin 08/23/2012 05/02/2016 Solar lentigo 08/23/2012 05/02/2016 Other seborrheic keratosis 08/23/2012 1 07/02/2015 Actinic skin damage 08/23/2012 05/02/20 16 Pulsatile tinnitus 10/13/2010 3 documented as of this encounter (statuses as of 04/20/2023) [facility] of Past illness Narrative* Problem Noted Date Diagnosed Date Resolved Date Thoracic aortic aneurysm without rupture 07/08/2019 07/06/2021 Overview: 05/17/19 Echo ;Mid ascending aorta 4.2 cm. 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 Neoplasm of Uncertain Behavi or(NUB) of skin: R/O BCC vs SCC vs other Skin Cancer: L side nose 08/23/2012 09/21/2012 R/O BCC (basal cell carcinom a), face: L side nose 08/23/2012 09/21/2012 Actinic Keratoses (Premalignant AK's) 08/23/2012 05/02/2016 Scar condition and fibrosis of skin 08/23/2012 05/02/2016 Solar lentigo 08/23/2012 05/02/2016 Other seborrheic keratosis 08/23/2012 1 07/02/2015 Actinic skin damage 08/23/2012 05/02/20 16 Pulsatile tinnitus 10/13/2010 3 documented as of this encounter (statuses as of 04/26/2023) [facility] of Past illness Narrative* Problem Noted Date Diagnosed Date Resolved Date Thoracic aortic aneurysm without rupture 07/08/2019 07/06/2021 Overview: 05/17/19 Echo ;Mid ascending aorta 4.2 cm. 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 Neoplasm of Uncertain Behavi or(NUB) of skin: R/O BCC vs SCC vs other Skin Cancer: L side nose 08/23/2012 09/21/2012 R/O BCC (basal cell carcinom a), face: L side nose 08/23/2012 09/21/2012 Actinic Keratoses (Premalignant AK's) 08/23/2012 05/02/2016 Scar condition and fibrosis of skin 08/23/2012 05/02/2016 Solar lentigo 08/23/2012 05/02/2016 Other seborrheic keratosis 08/23/2012 1 07/02/2015 Actinic skin damage 08/23/2012 05/02/20 16 Pulsatile tinnitus 10/13/2010 3 documented as of this encounter (statuses as of 05/04/2023) [facility] MAXIMILIAN (obstructive sleep apnea)- Primary Obstructive sleep apnea (adult) (pediatric) Restless legs syndrome Restless legs syndrome (RLS) [facility] Diagnosis Mild left ventricular systolic dysfunction- Primary Heart disease, unspecified Sinus bradycardia Other specified cardiac dysrhythmias Ascending aorta dilatation (HCC) Thoracic aortic ectasia Mild pulmonary hypertension (HCC) Other chronic pulmonary heart diseases [facility] Diagnosis At increased risk of exposure to COVID-19 virus- Primary Acute upper respiratory infection, unspecified [facility] Diagnosis Gout with manifestations Gout with other specified manifestations [facility] Diagnosis Obstructive sleep apnea (adult) (pediatric)- Primary Restless legs syndrome Restless legs syndrome (RLS) [facility] Diagnosis Elevated PSA- Primary Elevated prostate specific antigen (PSA) [facility] Diagnosis Post-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 Obesity, Class II, BMI 35-39.9 Obesity, unspecified [facility] Gout with manifestations Gout with other specified manifestations [facility] Diagnosis Sinus bradycardia- Primary Other specified cardiac dysrhythmias Ascending aorta dilatation (HCC) Thoracic aortic ectasia Mixed hyperlipidemia 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) Mild left ventricular systolic dysfunction Heart disease, unspecified Essential hypertension Unspecified essential hypertension Mild pulmonary hypertension (HCC) Other chronic pulmonary heart diseases MAXIMILIAN (obstructive sleep apnea) Obstructive sleep apnea (adult) (pediatric) Nonrheumatic mitral valve regurgitation [facility] Diagnosis Essential hypertension- Primary Unspecified essential hypertension [facility] Diagnosis Gout with manifestations Gout with other specified manifestations [facility] Diagnosis Acute gout of left ankle, unspecified cause- Primary Acute left ankle pain [facility] Diagnosis MAXIMILIAN (obstructive sleep apnea)- Primary Obstructive sleep apnea (adult) (pediatric) Restless legs syndrome Restless legs syndrome (RLS) Class 2 obesity with body mass index (BMI) of 35.0 to 35.9 in adult, unspecified obesity type, unspecified whether serious comorbidity present [facility] Diagnosis 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)- Primary Mild left ventricular systolic dysfunction Heart disease, unspecified Mild pulmonary hypertension (HCC) Other chronic pulmonary heart diseases MAXIMILIAN (obstructive sleep apnea) Obstructive sleep apnea (adult) (pediatric) Essential hypertension Unspecified essential hypertension Mixed hyperlipidemia Renal insufficiency Unspecified disorder of kidney and ureter Post-surgical hypothyroidism Postsurgical hypothyroidism Obesity, Class II, BMI 35-39.9 Obesity, unspecified Restless legs syndrome Restless legs syndrome (RLS) Chronic midline low back pain without sciatica 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 Gout with manifestations Gout with other specified manifestations Elevated PSA Elevated prostate specific antigen (PSA) Insomnia, unspecified type Family history of prostate cancer in father Screening for prostate cancer Special screening for malignant neoplasm of prostate [facility] Diagnosis Actinic keratosis- Primary Notalgia paresthetica Disturbance of skin sensation Inflamed seborrheic keratosis [facility] Diagnosis Mild left ventricular systolic dysfunction- Primary Heart disease, unspecified Essential hypertension Unspecified essential hypertension Mixed hyperlipidemia Ascending aorta dilatation (HCC) Thoracic aortic ectasia MAXIMILIAN (obstructive sleep apnea) Obstructive sleep apnea (adult) (pediatric) Nonrheumatic mitral valve regurgitation [facility] Diagnosis Actinic keratosis- Primary documented in this encounter [facility] for referral (narrative)* Outpatient Procedure (Routine) - Authorized Specialty Diagnoses / Procedures Referred By Viry santamaria [facility]erred To [facility] Diagnoses Ascending aorta dilatation (HCC) 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) Procedures ECHO ECHO TTHRC R-T 2D W/WOM-MODE COMPL SPEC&COLR D Iban Chin APRN.[employer] [address] [place] [address] [facility] [address] [place] [address] Referral ID Status Reason Start Date Expiration Date Visits Requested Visits Authorized [id number] Authorized Auto-Generat ed Referral 09/14/2022 09/14/2023 1 1 [facility] Concerns Infection Onset Date Last Indicated Resolved Time COVID-19 Rule-Out 01/21/2022 01/21/2022 Medications Administered Section Active Administered Medications - up to 3 most recent administrations Medication Order MAR Action Action Date Dose Rate Site Aminolevulinic Acid HCl 20 % soln 2 Each 2 Each, TOPICAL, DIRECTED, Starting on Mon01/11/23 at 1500, Until Discontinued, Use up to 2 sticks for treatment of previously indicated areas. Given 04/20/2023 10:45 AM EST 1 Each Summary Purpose Family History No Family History Records Found Advance Directives No Advanced Directives Records Found Additional Source Comments Source Comments (unrecognize d section and content) In the event this informatio n is protected by the Federal Confidentiality of Alcohol and Drug Abuse Patient Records regulations: The Federal rules restrict any use of the information to criminally investigate or prosecute any alcohol or drug abuse patient.[facility] the event this information is protected by the Federal Confidentiality of Alcohol and Drug Abuse Patient Records regulations: The Federal rules restrict any use of the information to criminally investigate or prosecute any alcohol or drug abuse patient.[facility] the event this information is protected by the Federal Confidentiality of Alcohol and Drug Abuse Patient Records regulations: The Federal rules restrict any use of the information to criminally investigate or prosecute any alcohol or drug abuse patient.[facility] the event this information is protected by the Federal Confidentiality of Alcohol and Drug Abuse Patient Records regulations: The Federal rules restrict any use of the information to criminally investigate or prosecute any alcohol or drug abuse patient.[facility] the event this information is protected by the Federal Confidentiality of Alcohol and Drug Abuse Patient Records regulations: The Federal rules restrict any use of the information to criminally investigate or prosecute any alcohol or drug abuse patient.[facility] the event this information is protected by the Federal Confidentiality of Alcohol and Drug Abuse Patient Records regulations: The Federal rules restrict any use of the information to criminally investigate or prosecute any alcohol or drug abuse patient.[facility] the event this information is protected by the Federal Confidentiality of Alcohol and Drug Abuse Patient Records regulations: The Federal rules restrict any use of the information to criminally investigate or prosecute any alcohol or drug abuse patient.[facility] the event this information is protected by the Federal Confidentiality of Alcohol and Drug Abuse Patient Records regulations: The Federal rules restrict any use of the information to criminally investigate or prosecute any alcohol or drug abuse patient.[facility] the event this information is protected by the Federal Confidentiality of Alcohol and Drug Abuse Patient Records regulations: The Federal rules restrict any use of the information to criminally investigate or prosecute any alcohol or drug abuse patient.[facility] the event this information is protected by the Federal Confidentiality of Alcohol and Drug Abuse Patient Records regulations: The Federal rules restrict any use of the information to criminally investigate or prosecute any alcohol or drug abuse patient.[facility] the event this information is protected by the Federal Confidentiality of Alcohol and Drug Abuse Patient Records regulations: The Federal rules restrict any use of the information to criminally investigate or prosecute any alcohol or drug abuse patient.[facility] the event this information is protected by the Federal Confidentiality of Alcohol and Drug Abuse Patient Records regulations: The Federal rules restrict any use of the information to criminally investigate or prosecute any alcohol or drug abuse patient.[facility] the event this information is protected by the Federal Confidentiality of Alcohol and Drug Abuse Patient Records regulations: The Federal rules restrict any use of the information to criminally investigate or prosecute any alcohol or drug abuse patient.[facility] the event this information is protected by the Federal Confidentiality of Alcohol and Drug Abuse Patient Records regulations: The Federal rules restrict any use of the information to criminally investigate or prosecute any alcohol or drug abuse patient.[facility] the event this information is protected by the Federal Confidentiality of Alcohol and Drug Abuse Patient Records regulations: The Federal rules restrict any use of the information to criminally investigate or prosecute any alcohol or drug abuse patient.[facility] the event this information is protected by the Federal Confidentiality of Alcohol and Drug Abuse Patient Records regulations: The Federal rules restrict any use of the information to criminally investigate or prosecute any alcohol or drug abuse patient.[facility] the event this information is protected by the Federal Confidentiality of Alcohol and Drug Abuse Patient Records regulations: The Federal rules restrict any use of the information to criminally investigate or prosecute any alcohol or drug abuse patient.[facility] the event this information is protected by the Federal Confidentiality of Alcohol and Drug Abuse Patient Records regulations: The Federal rules restrict any use of the information to criminally investigate or prosecute any alcohol or drug abuse patient.[facility] the event this information is protected by the Federal Confidentiality of Alcohol and Drug Abuse Patient Records regulations: The Federal rules restrict any use of the information to criminally investigate or prosecute any alcohol or drug abuse patient.[facility] the event this information is protected by the Federal Confidentiality of Alcohol and Drug Abuse Patient Records regulations: The Federal rules restrict any use of the information to criminally investigate or prosecute any alcohol or drug abuse patient.[facility] the event this information is protected by the Federal Confidentiality of Alcohol and Drug Abuse Patient Records regulations: The Federal rules restrict any use of the information to criminally investigate or prosecute any alcohol or drug abuse patient.[facility] the event this information is protected by the Federal Confidentiality of Alcohol and Drug Abuse Patient Records regulations: The Federal rules restrict any use of the information to criminally investigate or prosecute any alcohol or drug abuse patient.[facility] the event this information is protected by the Federal Confidentiality of Alcohol and Drug Abuse Patient Records regulations: The Federal rules restrict any use of the information to criminally investigate or prosecute any alcohol or drug abuse patient.[facility] the event this information is protected by the Federal Confidentiality of Alcohol and Drug Abuse Patient Records regulations: The Federal rules restrict any use of the information to criminally investigate or prosecute any alcohol or drug abuse patient.[facility] the event this information is protected by the Federal Confidentiality of Alcohol and Drug Abuse Patient Records regulations: The Federal rules restrict any use of the information to criminally investigate or prosecute any alcohol or drug abuse patient.[facility] Reason for Visit (unrecogniz ed section and content) Reason Comments Established Patient follow up sleep Reason Onset Date Comments Refill Request 11/25/2021 Reason Comments Orders Reason Comments Head Congestion Fever, chills, SCHWAB, c ough x 3 days Reason Comments Electronic Communication Reason Onset Date Comments Refill Request 05/01/2022 Reason Comments Follow Up 6 month-MAXIMILIAN Reason Comments Results Reason Comments Hyperparathyroidism Reason Onset Date Comments Refill Request 07/31/2022 Reason Comments Cardiology Follow Up No issues Reason Onset Date Comments Refill Request 09/14/2022 Reason Onset Date Comments Refill Request 10/30/2022 Reason Comments Pain (foot) Left ankle Reason Comments Follow Up Reason Comments 6 Month Exam Reason Comments LESION, SKIN Reason Comments medical necessity Reason Comments Established Patient Follow-Up Follow upE CHO 09/26/22EKG 09/14/22Room 13No current cardiac concerns Reason Comments Light Treatments Reason Comments Patient Question [employer] forms Care Teams (unrecognized sec tion and content) Free Lance Model Relationship Specialty Start Date End Date Bandar Graf PA-C [address] [place] [address] PCP - General Family Practice 07/09/18 Armond El [facility] [place] [address] Professor Of Mathematics Cardiology 07/06/21 Free Lance Model Relationship Specialty Start Date End Date Bandar Graf PA-C [address] [place] [address] PCP - General Family Practice 07/09/18 Armond El [facility] [place] [address] Professor Of Mathematics Cardiology 07/06/21 Free Lance Model Relationship Specialty Start Date End Date Bandar Graf PA-C [address] [place] [address] PCP - General Family Practice 07/09/18 Armond El [facility] [place] [address] Professor Of Mathematics Cardiology 07/06/21 Free Lance Model Relationship Specialty Start Date End Date Bandar Graf PA-C [address] [place] [address] PCP - General Family Medicine 07/09/18 Armond El DO [address] [place] [address] Professor Of Mathematics Cardiology 07/06/21 Free Lance Model Relationship Specialty Start Date End Date Bandar Graf PA-C [address] [place] [address] PCP - General Family Medicine 07/09/18 Armond El DO [address] [place] [address] Professor Of Mathematics Cardiology 07/06/21 Free [employer] Model Relationship Specialty Start Date End Date Bandar Graf PA-C [address] [place] [address] PCP - General Family Medicine 07/09/18 Armond El DO [address] [place] [address] Professor Of Mathematics Cardiology 07/06/21 Free [employer] Model Relationship Specialty Start Date End Date Bandar Graf PA-C [address] [place] [address] PCP - General Family Medicine 07/09/18 Armond El [address] [place] [address] Professor Of Mathematics Cardiology 07/06/21 Free Lance Model Relationship Specialty Start Date End Date Bandar Graf PA-C [address] [place] [address] PCP - General Family Medicine 07/09/18 Armond El DO [address] [place] [address] Professor Of Mathematics Cardiology 07/06/21 Free Lance Model Relationship Specialty Start Date End Date Bandar Graf PA-C [address] [place] [address] PCP - General Family Medicine 07/09/18 Armond El DO [address] [place] [address] Professor Of Mathematics Cardiology 07/06/21 Free Lance Model Relationship Specialty Start Date End Date Bandar Graf PA-C [address] [place] [address] PCP - General Family Medicine 07/09/18 Armond El, [facility] [place] [address] Professor Of Mathematics Cardiology 07/06/21 Free Lance Model Relationship Specialty Start Date End Date Bandar Graf PA-C [address] [place] [address] PCP - General Family Medicine 07/09/18 Armond El [facility] [place] [address] Professor Of Mathematics Cardiology 07/06/21 Free Lance Model Relationship Specialty Start Date End Date Bandar Graf PA-C [address] [place] [address] PCP - General Family Medicine 07/09/18 Armond El [facility] [place] [address] Professor Of Mathematics Cardiology 07/06/21 Free Lance Model Relationship Specialty Start Date End Date Bandar Graf PA-C [address] [place] [address] PCP - General Family Medicine 07/09/18 Armond El [facility] [place] [address] Professor Of Mathematics Cardiology 07/06/21 Free Lance Model Relationship Specialty Start Date End Date Bandar Graf PA-C [address] [place] [address] PCP - General Family Medicine 07/09/18 Armond El DO [address] [place] [address] Professor Of Mathematics Cardiology 07/06/21 Free Lance Model Relationship Specialty Start Date End Date Bandar Graf PA-C [address] [place] [address] PCP - General Family Medicine 07/09/18 Armond El DO [facility] [place] [address] Professor Of Mathematics Cardiology 07/06/21 Free Lance Model Relationship Specialty Start Date End Date Bandar Graf PA-C [address] [place] [address] PCP - General Family Medicine 07/09/18 Armond El DO [facility] [place] [address] Professor Of Mathematics Cardiology 07/06/21 Free Lance Model Relationship Specialty Start Date End Date Bandar Graf PA-C [address] [place] [address] PCP - General Family Medicine 07/09/18 Armond El DO [facility] [place] [address] Professor Of Mathematics Cardiology 07/06/21 Free Lance Model Relationship Specialty Start Date End Date Bandar Graf PA-C [address] [place] [address] PCP - General Family Medicine 07/09/18 Armond El DO [address] [place] [address] Professor Of Mathematics Cardiology 07/06/21 Free Lance Model Relationship Specialty Start Date End Date Bandar Graf PA-C [address] [place] [address] PCP - General Family Medicine 07/09/18 Armond El DO [address] [place] [address] Professor Of Mathematics Cardiology 07/06/21 (unrecognized sect ion and content) No Status Records Found INFORMATION SOURCE (unrecogn ized section and content) FOR RECORDS PERTAINING TO PATIENTS WHO ARE OR HAVE BEEN ENROLLED IN A CHEMICAL DEPENDENCY/SUBSTANCEABUSE PROGRAM, SOME INFORMATION MAY BE OMITTED. This clinical summary was aggregated from multiple sources. Caution should be exercised in using it in the provision of clinical care. This summary normalizes information from multiple sources, and as a consequence, information in this document may materially change the coding, format and clinical context of patient data. In addition, data may be omitted in some cases. CLINICAL DECISIONS SHOULD BE BASED ON THE PRIMARY CLINICAL RECORDS. [employer] provides no warranty or guarantee of the accuracy or completeness of information in this document.
[2023-06-27 13:39] VITALS: BP 124/71; PULSE 78; O2SAT 98
== END 2023-06-27 13:41 | disposition home or self-care (01) ==
PROVIDERS: Emergency Provider Emergency Medicine; PCP Family Medicine; Referring Provider Emergency Medicine; Visit Provider Emergency Medicine
DX: N21.0 Calculus in bladder (principal); I10 Essential (primary) hypertension; E78.00 Pure hypercholesterolemia, unspecified; R11.0 Nausea
CPT/HCPCS: 74176; 80053; 81001; 85025; 96361; 96374; 96375; 99283; J7030; J2405

== ENCOUNTER 2023-06-28 18:26 | Emergency (ER) | payer MEDICARE, OTHER, SELFPAY ==
[2023-06-28 18:27] VITALS: BP 131/108; PULSE 68; RESP 19; TEMP 36.6; O2SAT 96; BMI 39.0
[2023-06-28 18:54] LABS: Bacteria 0 SEEN /hpf (None Seen); Mucous, Urine 0 SEEN /hpf (<or=2+); Squamous Epithelial Cells - UA 0 SEEN /hpf (0-5)
[2023-06-28 18:55] LABS: Color, Urine Yellow (Yellow); Glucose, Dipstick Normal (Normal); Ketone-Dipstick Negative (Negative); Leukocyte Esterase-Dipstick 100 /ul (Negative); Nitrite-Dipstick Negative (Negative); Occult Blood-Urine 50 /ul (Negative); Protein-Dipstick Negative (Negative); Urine Bilirubin Dipstick Negative (Negative); Urine Clarity Clear (Clear); Urine Urobilinogen Normal (Normal)
[2023-06-28 18:55] LABS: Absolute Lymphocyte Count 1.64 X10^3/uL (0.83-4.51); Absolute Neutrophil Count 5.6 X10^3/uL (2.0-7.7); Basophil# 0.04 X10^3/uL; Basophil% 0.5 % (0-1); Eosinophil# 0.23 X10^3/uL; Eosinophils% 2.8 % (0-5); Hematocrit 38.4 % (40-54); Hemoglobin 12.4 g/dL (13.0-16.5); Lymphocyte # 1.64 X10^3/ul (0.83-4.51); Lymphocyte % 20.2 % (19-41); Mean Corp Hgb Conc 32.3 g/dL (32-36); Mean Corpuscular Hgb 28.4 pg (27.0-32.0); Mean Corpuscular Volume 88.1 fL (80-94); Mean Platelet Vol. 10.2 fl (6.2-12.0); Monocyte# 0.56 X10^3/uL; Monocyte% 6.9 % (0-10); NRBC Flagged by Analyzer 0 % (0-5); Neutrophil # 5.64 X10^3/uL (2.7-7.7); Neutrophil % 69.4 % (47-70); Platelet Count 188 K/mm3 (150-450); RBC Distribution Width SD 41.9 fl (35.1-43.9); Red Blood Count 4.36 M/mm3 (4.6-6.2); White Blood Count 8.1 K/mm3 (4.4-11.0)
[2023-06-28 19:12] LABS: ALB/GLOB Ratio 1.1 RATIO (0.9-2.4); AST(SGOT) 16 U/L (15-37); Alanine Aminotransfer ALT/SGPT 26 U/L (16-61); Albumin, Serum 3.5 g/dL (3.2-5.0); Alkaline Phosphatase 64 U/L (45-117); Anion Gap 1 (5-15); BUN 27 mg/dL (7-18); BUN/Creat Ratio 12.7 RATIO (10-20); Calcium,Total 9.3 mg/dL (8.5-10.1); Chloride 107 mmol/L (98-107); Creatinine, Serum 2.13 mg/dL (0.70-1.30); EST Glomerular Filtration Rate 33 mL/min (>60); Est Glom Filt Rate - Afr Amer 40 mL/min (>60); Estimated Creatinine Clearance 44.43 ml/min; Globulin 3.3 g/dL (2.2-4.2); Glucose 114 mg/dL (74-106); Protein, Total 6.8 g/dL (6.4-8.2); Sodium Level 137 mmol/L (136-145)
[2023-06-28 19:12] LABS: White Blood Cells 0-5 SEEN /hpf (0-5)
[2023-06-28 19:13] LABS: Red Blood Cells-Urine 0-5 SEEN /hpf (0-5)
--- OUTSIDE RECORDS SUMMARY | 2023-06-28 20:09 | XMS RPT_ITS | CCD ---
Author Name Unknown Address [address] [place] [address] Organization [facility] Care Team Providers Care Plate Conditioner Name Role Phone Bandar Graf PA-C Primary Care Provider [phone] Armond El DO Unavailable Bandar GRAF Primary [...] JR Attending Unavailable SELF Referring Unavailable Bandar GRFA Primary Care Unavailable RAFA LEBRON Attending Unavailable [...] 180.3 cm Armond El DO Work Phone: [facility] 03-16-2023 09:20-0400 Body weight 120.66 kg Armond El DO Work Phone: [facility] 03-16-2023 09:20-0400 Diastolic blood pressure 76 mm[Hg] Armond El DO Work Phone: [facility] 03-16-2023 09:20-0400 Heart rate 54 /min Armond El DO Work Phone: [facility] 03-16-2023 09:20-0400 SaO2% (BldA) [Mass fraction] 97 % Armond El DO Work Phone: [facility] 03-16-2023 09:20-0400 Systolic blood pressure 128 mm[Hg] Armond El DO Work Phone: [facility] 12-12-2022 10:04-0400 Body temperature 97.9 [degF] Elizabeth Loredo Jr., MD Work Phone: [facility] 12-12-2022 10:04-0400 Body weight 117.48 kg Elizabeth Loredo Jr., MD Work Phone: [facility] 12-12-2022 10:04-0400 Heart rate 52 /min Elizabeth Loredo Jr., MD Work Phone: [facility] 12-12-2022 10:04-0400 Respiratory rate 16 /min Elizabeth Loredo Jr., MD Work Phone: [facility] 12-12-2022 10:04-0400 SaO2% (BldA) [Mass fraction] 96 % Elizabeth Loredo Jr., MD Work Phone: [facility] 12-12-2022 08:29-0400 Body weight 117.48 kg NA Graf PA-C Work Phone: [facility] 12-12-2022 08:29-0400 Diastolic blood pressure 72 mm[Hg] NA Graf PA-C Work Phone: [facility] 12-12-2022 08:29-0400 Heart rate 61 /min NA Graf PA-C Work Phone: [facility] 12-12-2022 08:29-0400 Respiratory rate 16 /min NA Graf PA-C Work Phone: [facility] 12-12-2022 08:29-0400 SaO2% (BldA) [Mass fraction] 98 % NA Graf PA-C Work Phone: [facility] 12-12-2022 08:29-0400 Systolic blood pressure 128 mm[Hg] NA Graf PA-C Work Phone: [facility] 11-09-2022 08:52-0400 Body temperature 97.59 [degF] Casey Perales PA-C Work Phone: [facility] 11-09-2022 08:52-0400 Body weight 116.57 kg Casey Perales PA-C Work Phone: [facility] 11-09-2022 08:52-0400 Diastolic blood pressure 70 mm[Hg] Casey Perales PA-C Work Phone: [facility] 11-09-2022 08:52-0400 Heart rate 52 /min Casey Perales PA-C Work Phone: [facility] 11-09-2022 08:52-0400 Respiratory rate 18 /min Casey Perales PA-C Work Phone: [facility] 11-09-2022 08:52-0400 Systolic blood pressure 110 mm[Hg] Casey Perales PA-C Work Phone: [facility] 09-14-2022 10:23-0400 Body height 181.6 cm Iban Chin PRESS ASSISTANT AND FEEDER.POST GRADUATE INTERN Work Phone: [facility] 09-14-2022 10:23-0400 Body weight 119.93 kg Iban Chin PRESS ASSISTANT AND FEEDER.POST GRADUATE INTERN Work Phone: [facility] 09-14-2022 10:23-0400 Diastolic blood pressure 70 mm[Hg] Iban Chin PRESS ASSISTANT AND FEEDER.POST GRADUATE INTERN Work Phone: [facility] 09-14-2022 10:23-0400 Heart rate 43 /min Iban Chin PRESS ASSISTANT AND FEEDER.POST GRADUATE INTERN Work Phone: [facility] 09-14-2022 10:23-0400 SaO2% (BldA) [Mass fraction] 99 % Iban Chin PRESS ASSISTANT AND FEEDER.POST GRADUATE INTERN Work Phone: [facility] 09-14-2022 10:23-0400 Systolic blood pressure 114 mm[Hg] Iban Chin PRESS ASSISTANT AND FEEDER.POST GRADUATE INTERN Work Phone: [facility] 07-06-2022 10:40-0500 Body weight 118.84 kg Elena Dias MD Work Phone: [facility] 07-06-2022 10:40-0500 Diastolic blood pressure 82 mm[Hg] Elena Dias MD Work Phone: [facility] 07-06-2022 10:40-0500 Heart rate 47 /min Elena Dias MD Work Phone: [facility] 07-06-2022 10:40-0500 Systolic blood pressure 132 mm[Hg] Elena Dias MD Work Phone: [facility] 06-13-2022 13:47-0500 Body temperature 97.2 [degF] Elizabeth Loredo Jr., MD Work Phone: [facility] 06-13-2022 13:47-0500 Body weight 118.66 kg Elizabeth Loredo Jr., MD Work Phone: [facility] 06-13-2022 13:47-0500 Diastolic blood pressure 74 mm[Hg] Elizabeth Loredo Jr., MD Work Phone: [facility] 06-13-2022 13:47-0500 Heart rate 58 /min Elizabeth Loredo Jr., MD Work Phone: [facility] 06-13-2022 13:47-0500 Respiratory rate 16 /min Elizabeth Loredo Jr., MD Work Phone: [facility] 06-13-2022 13:47-0500 SaO2% (BldA) [Mass fraction] 97 % Elizabeth Loredo Jr., MD Work Phone: [facility] 06-13-2022 13:47-0500 Systolic blood pressure 125 mm[Hg] Elizabeth Loredo Jr., MD Work Phone: [facility] 01-21-2022 07:15-0400 Body temperature 98.91 [degF] Millie Wolf APRN.POST GRADUATE INTERN Work Phone: [facility] 01-21-2022 07:15-0400 Body weight 118.3 kg Millie Wolf APRN.POST GRADUATE INTERN Work Phone: [facility] 01-21-2022 07:15-0400 Diastolic blood pressure 66 mm[Hg] Millie Wolf APRN.POST GRADUATE INTERN Work Phone: [facility] 01-21-2022 07:15-0400 Heart rate 69 /min Millie Wolf APRN.POST GRADUATE INTERN Work Phone: [facility] 01-21-2022 07:15-0400 Respiratory rate 21 /min Millie Wolf APRN.POST GRADUATE INTERN Work Phone: [facility] 01-21-2022 07:15-0400 SaO2% (BldA) [Mass fraction] 98 % Millie Wolf APRN.POST GRADUATE INTERN Work Phone: [facility] 01-21-2022 07:15-0400 Systolic blood pressure 114 mm[Hg] Millie Lynn POST GRADUATE INTERN Work Phone: [facility] 11-25-2021 11:37-0400 Body weight 118.39 kg Elizabeth Loredo Jr., MD Work Phone: [facility] 11-25-2021 11:37-0400 Diastolic blood pressure 77 mm[Hg] Elizabeth Loredo Jr., MD Work Phone: [facility] 11-25-2021 11:37-0400 Heart rate 53 /min Elizabeth Loredo Jr., MD Work Phone: [facility] 11-25-2021 11:37-0400 SaO2% (BldA) [Mass fraction] 96 % Elizabeth Loredo Jr., MD Work Phone: [facility] 11-25-2021 11:37-0400 Systolic blood pressure 122 mm[Hg] Elizabeth Loredo Jr., MD Work Phone: [facility] Encounters Encounter Date Encounter Type Care Provider Facility Start: 06-26-2023 End: 06-26-2023 ambulatory [facility] Facility:[facility] Start: 06-19-2023 End: 06-20-2023 ambulatory [facility] Facility:[facility] Start: 04-20-2023 Telephone encounter Rafa Philippe on [...] Detail Author Start: 06-13-[address] [facility] Start: 12-13-2027 Lipid 1996 panel - S vishnu or Plasma Lipid Screening [facility] Start: 12-13-2027 LIPID SCREEN LIPID SCREEN [facility] Start: 06-21-2027 PROSTATE CANCER SCRE ENING DISCUSSION PROSTATE CANCER SCREENING DISCUSSION [facility] Start: 06-15-2027 LIPID SCREEN LIPID SCREEN [facility] Start: 07-13-2026 LIPID SCREEN LIPID SCREEN [facility] Start: 06-15-2025 DIABETES SCREEN [facility] Start: 06-15-2025 Diabetes Screening Diabetes Screenin g [facility] Start: 04-04-[address] [facility] Start: 04-04-2024 COLORECTAL CANCER SCREENING COLORECTAL CANCER SCREENING [facility] Start: 03-16-2024 BP Controlled (<130/80) BP Controlle d (<130/80) [facility] Start: 12-13-2023 ANNUAL PCP TEAM PRECISION LATHE OPERATOR CECILIA DISEASE VISIT ANNUAL PCP TEAM CHRONIC DISEASE VISIT [facility] Start: 12-13-2023 BP CONTROLLED (<130/80) BP CONTROLLE D (<130/80) [facility] Start: 12-13-2023 SHINGRIX VACCINE (1 of 2) RAO GRIX VACCINE (1 of 2) [facility] Immunizations Immunization Date Immunization Notes Care Provider Bean washburn 06-13-2022 tetanus toxoid, redu tiara diphtheria toxoid, and acellular pertussis vaccine, adsorbed Elizabeth Loredo Jr., MD Work Phone: [facility] 03-23-2020 influenza, high-dose , quadrivalent vaccine (FLUZONE HIGH DOSE QUADRIVALENT) Rafa Lebron PA-C Work Phone: [facility] Work Phone: 03-23-2020 influenza virus vaccine, unspecified formulation Elizabeth Loredo Jr., MD Work Phone: [facility] 03-25-2019 influenza, high dose seasonal, preservative-free Rafa Lebron PA-C Work Phone: [facility] Work Phone: 03-25-2019 pneumococcal conjuga te vaccine, 13 valent Rafa Lebron PA-C Work Phone: [facility] Work Phone: 05-14-2018 influenza, injectabl e, quadrivalent, contains preservative Rafa GRIFFITH-Taisha Work Phone: [facility] 02-27-2017 influenza, injectabl e, quadrivalent, contains preservative Rafa GRIFFITH-C Work Phone: [facility] 03-19-2016 influenza, seasonal, injectable Rafa GRIFFITH-C Work Phone: [facility] 08-06-2010 tetanus and diphther ia toxoids, not adsorbed, for adult use Rafa Lebron PA-C Work Phone: [facility] Payers Date Payer Category Payer Medicare MEDICARE MEDICAR E A AND B [id number] 2019-Present [phone] [place] [address] Medicare [id number] 2019 Medicare MEDICARE MEDICAR E A AND B [id number] 2019-Present [phone] [place] [address] Medicare [id number] 2019 Medicare [id number] 2019 Unknown [employer] [id number] 2019-Present [phone] [address] [place] [address] Indemnity [id number] 2019 Unknown [employer] [id number] 2019-Present [phone] [address] [place] [address] Indemnity [id number] 2019 Unknown [id number] Social History Date Type Detail Facility Start: 09-17-2010 Tobacco smoking stat us HIIS Never smoked tobacco [facility] Work Phone: Start: 09-17-2010 Tobacco use and exposure Smokeless tobacco non-user [facility] Work Phone: Start: 07-06-2021 End: 12-12-2022 Alcohol intake Current non-drinker of alcohol (finding) [facility] Start: 1955 Sex Assigned At Male [facility] Start: 09-05-2021 End: 04-04-2022 Exposure to SARS-CoV-2 (event) Not sure [facility] Start: 06-17-2022 End: 12-12-2022 History of [address] [facility] Start: 06-17-2022 End: 12-12-[address] [facility] Adult Depression Screening Assessment 0 [facility] Start: 09-05-2019 Gender identity Identifies as male gender (finding) [facility] Start: 09-05-2019 Sexual orientation Heterosexual (fin ding) [facility] Clinical Notes 07-08-2019 to 06-26-2023 Telephone Encounter - Keri Ferro RN - 04/25/2023 3:00 PM ESTTelephone Encounter - Marry Hernandez RN - 04/20/2023 2:41 PM ESTPatient InstructionsMarry Hernandez RN - 04/20/2023 10:32 AM EST Note Date & Type Note Facility 06-26-2023 Note HNO ID: [id number] Author: Bandar GRAF PA-C Service: ? Author Type: Physician Shop Assistant Type: Progress Notes Filed: 06/26/2023 10:25 Note [...] Lymph 1.00 - 4.00 k/uL 1.83 1.83 [place]% % 7.5 9.4 Abs [place] <0.87 k/uL 0.67 0.53 [place]% % 2.8 [...] HISTORY Diagnosis D (more content not included)... [facility] 06-26-2023 Note HNO ID: [id number] Author: ELIZABETH LOREDO JR, MD Service: ? [...] units) Date Value 11/16/2015 Negative URINALYSIS Specific [place], Ur Date Value Ref Range Status 05/13/2019 [...] APPROXIMATELY 7 PMDisp: 270 capsuleRfl: 1 Ipratropium [place] (ATROVENT) 21 mcg (0.03 %) nasal sprayUse [...] following photodynamic therapy.Disp: 15 gRfl: 1 omega 3-ufk-vfu-fish oil (FISH OIL) 10 (more content not included)... [facility] 04-25-2023 Miscellaneous Notes Placed in the mail [employer] insurance forms brought in by patient. Forms placed on Rafa Lebron MS, PA-C desk for completion. Please mail forms to patient in self addressed envelope (attached). documented in this encounter [facility] 04-20-2023 Note HNO ID: [id number] Author: Marry Hernandez RN Service: ? Author Type: Registered Nurse Type: Progress Notes Filed: 04/20/2023 12:57 PM Note Text: PHOTODYNAMIC THERAPY April 20, 2023 Dx: Actinic Keratosis Pt ID verified with patient: Yes Procedure verified against order and with patient: Yes Skin prepped with 70% isopropyl alcohol Yes Area treated: Full face Number of Levulan sticks applied: 1 Lot # [id number] 11/2025 Time before Blue Light exposure: 15 minutes Area treated: Full face Pt exposed to light for 30 minutes Patient reaction during treatment: None, patient tolerated procedure well. Patient reaction after treatment: None, patient tolerated procedure well. Aftercare instructions given. Patient verbalizes understanding. Follow up with Rafa Lebron PA-C . Marry Hernandez RN [facility] 04-20-2023 Instructions Marry Hernandez RN - 04/20/2023 [...] swelling and redness, you may also take [id number] oral medications: Claritin (loratidine) 10 mg in [...] concerns, call the following number(s): [facility] [phone] documented in this encounter [facility] 04-20-2023 History of Presen t illness Narrative PHOTODYNAMIC THERAPY April 20, 2023 Dx: Actinic Keratosis Pt ID verified with patient: Yes Procedure verified against order and with patient: Yes Skin prepped with 70% isopropyl alcohol Yes Area treated: Full face Number of Levulan sticks applied: 1 Lot # [id number] 11/2025 Time before Blue Light exposure: 15 minutes Area treated: Full face Pt exposed to light for 30 minutes Patient reaction during treatment: None, patient tolerated procedure well. Patient reaction after treatment: None, patient tolerated procedure well. Aftercare instructions given. Patient verbalizes understanding. Follow up with SUZANNA Hernandez RN documented in this encounter [facility] 03-16-2023 Note HNO ID: [id number] Author: Armond El, DO Service: ? Author Type: Physician Type: Progress Notes Filed: 03/16/2023 4:28 PM Note Text: [facility]Y [facility] OUTPATIENT VISIT DATE March 16, 2023 PRIMARY CARE PHYSICIAN: Bandar Graf [address] [place] [address] HISTORY OF PRESENT ILLNESS: Mr. Dominguez is [...] Maternal Grandfather Cancer (more content not included)... [facility] 03-16-2023 History of Presen t illness Narrative Images from the original note were not included. [facility]OLOGY [facility] OUTPATIENT VISIT DATE March 16, 2023 PRIMARY CARE PHYSICIAN: Bandar Graf [address] [place] [address] HISTORY OF PRESENT ILLNESS: Mr. Dominguez is [...] 5-16 cmH2O. Lifetime supplies. Please fit with [employer]wear under nose FFM. Please provide us download after 4 weeks of use.^Disp: 1 Device^Rfl: 99 Fluocinolone-Shower Cap 0.01 % oil^Apply to affected area of scalp nightly and wash out in the morning.^Disp: 118.28 mL^Rfl: 5 gabapentin (NEURONTIN) 300 mg capsule^TAKE 1 CAPSULE BY MOUTH AFTER ARRIVING HOME FROM WORK THEN 2 CAPSULES AT APPROXIMATELY 7 PM^Disp: 270 capsule^Rfl: 1 Ipratropium [place]idd[place] (ATROVENT) 21 mcg (0.03 %) nasal spray^Use [...] mouth once daily.^Disp: 90 tablet^Rfl: 3 omega 4-ujf-lcu-fish oil (FISH OIL) 100-160-1,000 mg cap^Take by [...] daily.^Disp: ^Rfl: Armond El DO, FACC, FACOI Steel Erector, [facility] Ambulatory Cardiology Steel Erector, [facility] Cardiac Rehabilitation Steel Erector, [facility]iac [facility] Steel Erector, [facility] Congestive [facility] Failure [facility] Steel Erector, [facility] Ambulatory Cardiology Clinical Shop Assistant Profressor of Medicine, [facility] [employer] [facility] - [facility] Staff Car Unloader Helper, Fran Armstrong Department of Cardiovascular Medicine/[facility] [place], [facility] Please note: This note has been produced using speech recognition software and may contain errors related to that system including ucllen, punctuation, spelling, words, gender and phrases that may be inappropriate. documented in this encounter [facility] 03-08-2023 Note HNO ID: [id number] Author: Carroll Anthony APRN.POST GRADUATE INTERN Service: ? Author Type: Nurse Practitioner Type: [...] scalp twice daily.Disp: 60 mLRfl: 3 Ipratropium [place] (ATROVENT) 21 mcg (0.03 %) nasal sprayUse 2 Sprays in the nose every 12 hours.Disp: 3.5 mLRfl: 5 Vitamin E, dl, acetate, (VITAMIN E) 134 mg (200 unit) CapsuleTake by mouth once daily.Disp: Rfl: omega 7-drr-lea-fish oil (FISH OIL) 100-160-1,000 mg capTake by mouth.Disp: Rfl: ascorbic acid (SUSAN-C ORAL)Take by mouth.Disp: Rfl: CPAPAutoPAP with humidification set at a range of 5-16 cmH2O. Lifetime supplies. Please fit with [employer] under nose FFM. Please provide us download [...] Mouth: Mucous membran (more content not included)... [facility] 03-03-2023 Miscellaneous Notes Signed forms faxed back as directed below. Uploaded to patient chart for future reference. DAVID Sears Type of form: Medical Necessity Form received via fax When form is completed, Fax form to [facility] at [phone] Form has been forwarded to Physician Desk: DAVID Wellington documented in this encounter [facility] 01-11-2023 Note HNO ID: [id number] Author: Rafa Lebron PA-C Service: ? Author Type: Physician Shop Assistant Type: Progress Notes Filed: 01/11/2023 3:02 PM [...] Left Flank, Right Flank, Right Upper Back Challis and brown ?stuck on? verrucous scaly papule [...] Past Histories independently gathered by the clinical microcomputer support specialist and the remaining scribed note accurately describes my personal service to the patient. Rafa Lebron, MS, PARhodaC [facility] 01-11-2023 History of Presen t illness Narrative [...] Left Flank, Right Flank, Right Upper Back Challis and brown stuck on verrucous scaly papule [...] Past Histories independently gathered by the clinical microcomputer support specialist and the remaining scribed note accurately describes my personal service to the patient. Rafa Lebron MS, SUZANNA documented in this encounter [facility] 01-03-2023 Miscellaneous Notes Called and spoke with patient. Patient is scheduled for follow up in June. Per message wait list: No appts loading. RFV annual thyroid cancer follow up (end of Jun or early Jul). [phone]. Template not yet released will post-pone. documented in this encounter [facility] 12-12-2022 Note HNO ID: [id number] Author: Elizabeth Loredo Jr., MD Service: ? [...] scalp twice daily.Disp: 60 mLRfl: 3 Ipratropium [place]idd[place] (ATROVENT) 21 mcg (0.03 %) nasal sprayUse 2 Sprays in the nose every 12 hour (more content not included)... [facility] 12-12-2022 Instructions Elizabeth Loredo Jr., MD - 12/12/2022 10:49 AM EDT Your most recent body mass index (BMI) that we have on record is 35.62 kg/m2. Obstructive sleep apnea (MAXIMILIAN) worsens with an increase in weight; reduction in weight may improve or resolve your MAXIMILIAN. If you are not already seeking treatment, there are resources available at the [facility] such as a nutrition consultation or referral to weight management programs at our [facility] [place]. Please let us know if we can assist with a referral. documented in this encounter [facility] 12-12-2022 Note HNO ID: [id number] Author: Bandar Graf PA-C Service: ? 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 Worked in [employer]. Sand dust. Dyspnea with exertion: No orthopnea: [...] Lymph 1.00 - 4.00 k/uL 2.37 1.83 [place]% % 6.9 7.5 Abs [place] <0.87 k/uL 0.47 0.67 Eosin% % 3.4 [...] Gout with ma (more content not included)... [facility] 12-12-2022 History of Presen t illness Narrative [...] scalp twice daily.^Disp: 60 mL^Rfl: 3 Ipratropium [place]idd[place] (ATROVENT) 21 mcg (0.03 %) nasal spray^Use 2 Sprays in the nose every 12 hours.^Disp: 3.5 mL^Rfl: 5 Vitamin E, dl, acetate, (VITAMIN E) 134 mg (200 unit) Capsule^Take by mouth once daily.^Disp: ^Rfl: omega 2-twi-ovp-fish oil (FISH OIL) 100-160-1,000 mg cap^Take by mouth.^Disp: ^Rfl: ascorbic acid (SUSAN-C ORAL)^Take by mouth.^Disp: ^Rfl: CPAP^AutoPAP with humidification set at a range of 5-16 cmH2O. Lifetime supplies. Please fit with Chelaile under nose FFM. Please provide us download [...] Elizabeth Loredo MD documented in this encounter 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 Worked in [employer]. Sand dust. Dyspnea with exertion: No orthopnea: [...] Lymph 1.00 - 4.00 k/uL 2.37 1.83 [place]% % 6.9 7.5 Abs [place] <0.87 k/uL 0.47 0.67 [place]osin% % 3.4 [...] scalp twice daily. 60 mL 3 Ipratropium [place]idd[place] (ATROVENT) 21 mcg (0.03 %) nasal spray Use 2 Sprays in the nose every 12 hours. 3.5 mL 5 Vitamin E, dl, acetate, (VITAMIN E) 134 mg (200 unit) Capsule Take by mouth once daily. (Patient not taking: Reported on 10/28/2022) omega 1-coi-ydk-fish oil (FISH OIL) 100-160-1,000 mg cap Take by mouth. ascorbic acid (SUSAN-C ORAL) Take by mouth. CPAP AutoPAP with humidification set at a range of 5-16 cmH2O. Lifetime supplies. Please fit with [employer] under nose FFM. Please provide us download after 4 weeks of use. 1 Device 99 Cholecalciferol, Vitamin D3, 50 mcg (2,000 unit) cap Take 1 capsule by mouth once daily. Current Facility-Administered Medications Medication Dose Route Frequency Provider Last Rate Last Admin perflutren lipid microspheres 1.3 mL in NaCl (PF) 0.9% 10 mL injection (DEFINITY) INTRAVENOUS DIRECTED PRN Iban Chin APRN.POST GRADUATE INTERN sodium chloride 0.9 % (flush) 10 mL (BD POSIFLUSH) 10 mL INTRAVENOUS DIRECTED PRN Iban Chin, LIANG.POST GRADUATE INTERN SHINGRIX VACCINE(1 of 2) Never done ADVANCE [...] Bandar Graf PA-C documented in this encounter [facility] 11-10-2022 Miscellaneous Notes Patient's notified and voiced understanding. Maryuri Wolf MA Let patient know that uric acid level is actually okay. But in acute gout flare ups, we sometimes see a falsely low uric acid level. Therefore I want him to continue the current tx plan and let us know if not improving. documented in this encounter [facility] 11-09-2022 Note HNO ID: [id number] Author: Casey Perales PA-C Service: ? Author Type: Physician Shop Assistant Type: Progress Notes Filed: 11/09/2022 10:24 AM [...] Apply to to scalp twice daily. Ipratropium [place]idd[place] (ATROVENT) 21 mcg (0.03 %) nasal spray Use 2 Sprays in the nose every 12 hours. omega 9-ipd-atm-fish oil (FISH OIL) 100-160-1,000 mg cap Take by mouth. ascorbic acid (SUSAN-C ORAL) Take by mouth. CPAP AutoPAP with humidification set at a range of 5-16 cmH2O. Lifetime supplies. Please fit with [employer]wear under nose FFM. Please provide us download [...] left ankle, unspe (more content not included)... [facility] 11-09-2022 History of Presen t illness Narrative [...] Apply to to scalp twice daily. Ipratropium [place] (ATROVENT) 21 mcg (0.03 %) nasal spray Use 2 Sprays in the nose every 12 hours. omega 1-cei-hha-fish oil (FISH OIL) 100-160-1,000 mg cap Take by mouth. ascorbic acid (SUSAN-C ORAL) Take by mouth. CPAP AutoPAP with humidification set at a range of 5-16 cmH2O. Lifetime supplies. Please fit with Chelaile under nose FFM. Please provide us download [...] Casey Perales PA-C documented in this encounter [facility] 11-02-2022 Miscellaneous Notes Patient phones requesting refills as follows: Requested Prescriptions Pending Prescriptions Disp Refills allopurinol (ZYLOPRIM) 300 mg tablet 30 tablet 2 Sig: Take 1 tablet by mouth once daily. ENIO 06/13/22 NOV 12/12/22 Please review and advise. Francis Cobos LPN documented in this encounter [facility] 10-28-2022 Note HNO ID: [id number] Author: Harlan Palafox Service: ? Author Type: [...] 5.5 4.3 - 5.6 % Final Comment: [place] [employer] guidelines indicate that patients with [...] Apply to to scalp twice daily. Ipratropium Giddings (ATROVENT) 21 mcg (0.03 %) nasal spray Use 2 Sprays in the nose every 12 hours. omega 4-crx-mgd-fish oil (FISH OIL) 100-160-1,000 mg cap Take by mouth. ascorbic acid (SUSAN-C ORAL) Take by mouth. CPAP AutoPAP with humidification set at a range of 5-16 cmH2O. Lifetime supplies. Please fit with [employer]wear under nose FFM. Please provide us download [...] left 2nd intersp (more content not included)... [facility] 10-28-2022 Note HNO ID: [id number] Author: Kiarra Tang RN Service: ? Author [...] He would like to repeat injection today. [facility] 09-14-2022 Miscellaneous Notes Patient's request for medication is as follows: Requested Prescriptions Pending Prescriptions Disp Refills lisinopril (ZESTRIL) 5 mg tablet 90 tablet 3 Sig: Take 1 tablet by mouth once daily. Prescription(s) as above. Please process accordingly. Joyce Berry APRN.POST GRADUATE INTERN ENIO: 09/14/22 Giuseppe NOV: 03/16/23 Kate documented in this encounter [facility] 09-14-2022 Note HNO ID: [id number] Author: Iban Chin APRN.CNP Service: ? Author Type: Nurse Practitioner Type: Progress Notes Filed: 09/14/2022 11:36 AM Note Text: [facility] [place] [facility] Department of Cardiovascular Medicine SECTION OF CLINICAL CARDIOLOGY OUTPATIENT VISIT DATE September 14, 2022 OUTPATIENT VISIT TYPE ESTABLISHED PRIMARY CARE PHYSICIAN: Bandar [address] [place] [address] REFERRING PHYSICIAN: Milo [place] [address] [facility] [address] CHIEF COMPLAINT: Follow up HISTORY OF PRESENT [...] scalp twice daily.Disp: 60 mLRfl: 3 Ipratropium Giddings (ATROVENT) 21 mcg (0.03 %) nasal sprayUse 2 Sprays in the nose every 12 hours.Disp: 3.5 mLRfl: 5 lisinopril (ZESTRIL, PRINIVIL) 5 mg tabletTake 1 tablet by mouth once daily.Disp: 90 tabletRfl: 3 Vitamin E, dl, acetate, (VITAMIN E) 134 mg (200 unit) CapsuleTake by mouth once daily.Disp: Rfl: omega 0-fwc-nqz-fish oil (FISH OIL) 100-160-1,000 mg capTake by [...] breath, Wheezing, Apnea (more content not included)... [facility] 09-14-2022 Instructions Iban Chin APRN.POST GRADUATE INTERN - 09/14/2022 10:53 AM EDT It was great to see you today, as we discussed: 1. You are due for repeat echocardiogram to check your aorta. This can be done at [place] 2. Your risk of a cardiac event [...] if need arises documented in this encounter [facility] 09-14-2022 History of Presen t illness Narrative Images from the original note were not included. [facility] [place] [facility] Department of Cardiovascular Medicine SECTION OF CLINICAL CARDIOLOGY OUTPATIENT VISIT DATE September 14, 2022 OUTPATIENT VISIT TYPE ESTABLISHED PRIMARY CARE PHYSICIAN: Bandar Gra[address] [place] [address] REFERRING PHYSICIAN: Milo [place] [address] [facility] [address] CHIEF COMPLAINT: Follow up HISTORY OF PRESENT [...] scalp twice daily.^Disp: 60 mL^Rfl: 3 Ipratropium Giddings (ATROVENT) 21 mcg (0.03 %) nasal spray^Use 2 Sprays in the nose every 12 hours.^Disp: 3.5 mL^Rfl: 5 lisinopril (ZESTRIL, PRINIVIL) 5 mg tablet^Take 1 tablet by mouth once daily.^Disp: 90 tablet^Rfl: 3 Vitamin E, dl, acetate, (VITAMIN E) 134 mg (200 unit) Capsule^Take by mouth once daily.^Disp: ^Rfl: omega 3-lsj-rgn-fish oil (FISH OIL) 100-160-1,000 mg cap^Take by mouth.^Disp: ^Rfl: ascorbic acid (SUSAN-C ORAL)^Take by mouth.^Disp: ^Rfl: CPAP^AutoPAP with humidification set at a range of 5-16 cmH2O. Lifetime supplies. Please fit with [employer] under nose FFM. Please provide us download [...] should need arise. CONTACT INFORMATION: Iban Chin APRN.POST GRADUATE INTERN Cardiology Nurse Practitioner Section of Regional Cardiology [facility] Dept of Cardiovascular Medicine [facility] [place] [address] [place] [address] Office Office This note was partially generated using BitWave voice recognition system and may contain errors related to that system including grammar, punctuation, spelling, and words that may be inappropriate documented in this encounter [facility] 08-01-2022 Miscellaneous Notes Patient has been [...] Wendy Gaxiola MA documented in this encounter [facility] 07-06-2022 Note HNO ID: [id number] Author: Elena Sepulveda V, MD Service: ? 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 Ipratropium Giddings (ATROVENT) 21 mcg (0.03 %) nasal spray Use 2 Sprays in the nose every 12 hours. lisinopril (ZESTRIL, PRINIVIL) 5 mg tablet Take 1 tablet by mouth once daily. lovastatin 40 mg tablet Take 1 tablet by mouth daily at bedtime. Vitamin E, dl, acetate, (VITAMIN E) 134 mg (200 unit) Capsule Take by mouth once daily. omega 1-xwy-rqh-fish oil (FISH OIL) 100-160-1,000 mg cap Take [...] Ref Rng AN (more content not included)... 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 Ipratropium Giddings (ATROVENT) 21 mcg (0.03 %) nasal spray Use 2 Sprays in the nose every 12 hours. lisinopril (ZESTRIL, PRINIVIL) 5 mg tablet Take 1 tablet by mouth once daily. lovastatin 40 mg tablet Take 1 tablet by mouth daily at bedtime. Vitamin E, dl, acetate, (VITAMIN E) 134 mg (200 unit) Capsule Take by mouth once daily. 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 OK to do it since levels have [...] Elena Sepulveda MD documented in this encounter [facility] 06-17-2022 Miscellaneous Notes Patient notified of [...] Silvia León APRN.MADISON documented in this encounter [facility] 06-13-2022 History of Presen t illness [...] Depression) 3 (None-Minimal Depression) 0 (None-Minimal Depression) [place] Sleepiness Scale 07/12/2020 10/13/2020 11/24/2021 Score - [...] scalp twice daily.^Disp: 60 mL^Rfl: 3 Ipratropium Giddings (ATROVENT) 21 mcg (0.03 %) nasal spray^Use [...] Capsule^Take by mouth once daily.^Disp: ^Rfl: omega 8-bou-vii-fish oil (FISH OIL) 100-160-1,000 mg cap^Take by mouth.^Disp: ^Rfl: ascorbic acid (SUSAN-C ORAL)^Take by mouth.^Disp: ^Rfl: levothyroxine (SYNTHROID) 137 mcg tablet^Take 1 tablet by mouth once daily. Except none on sundays^Disp: 90 tablet^Rfl: 4 CPAP^AutoPAP with humidification set at a range of 5-16 cmH2O. Lifetime supplies. Please fit with [employer]wear under nose FFM. Please provide us download [...] which included preparing to see the patient, [id number] patient care, completing clinical documentation, obtaining and/or [...] Elizabeth Loredo MD documented in this encounter [facility] 05-02-2022 Miscellaneous Notes Last virtual visit [...] is overdue for Annual appt with PCP. [employer] message to pt advising of the same. Awaiting response. Please review and advise. Francis Cobos LPN documented in this encounter [facility] 03-23-2022 Miscellaneous Notes Received request for prescription by fax from Tami Rodriguez. Form is placed in the provider's in box for signature. Will fax to Tami Rodriguez after signed. documented in this encounter [facility] 01-21-2022 History of Presen t illness [...] Patient has no known allergies. MEDICATIONS Ipratropium Giddings (ATROVENT) 21 mcg (0.03 %) nasal spray^Use [...] Capsule^Take by mouth once daily.^Disp: ^Rfl: omega 9-sha-jjx-fish oil (FISH OIL) 100-160-1,000 mg cap^Take by mouth.^Disp: ^Rfl: ascorbic acid (SUSAN-C ORAL)^Take by mouth.^Disp: ^Rfl: levothyroxine (SYNTHROID) 137 mcg tablet^Take 1 tablet by mouth once daily. Except none on sundays^Disp: 90 tablet^Rfl: 4 allopurinol (ZYLOPRIM) 300 mg tablet^Take 1 tablet by mouth once daily.^Disp: 30 tablet^Rfl: 11 CPAP^AutoPAP with humidification set at a range of 5-16 cmH2O. Lifetime supplies. Please fit with [employer] under nose FFM. Please provide us download [...] Millie Wolf APRN.CNP documented in this encounter [facility] 12-27-2021 Miscellaneous Notes Called PT talked to the she will cancel appointment for Echo on 01/03/22 after talking to Natalie [place] CNP. Echo is not needed at this time. Pt states she understands. Patient already had the Echo done in Jul that was ordered by me Pt is scheduled for 01/03/22 for Echo in [place] at 8 am Pended order for Echo Patient called and states she looked at [facility] and was surprised the echo was cancelled for 12/27/21. The order was not unlinked, so therefore please add another order for his 01/03/22 appointment in [place] for his echocardiogram. Thank you. Patient called and states she looked at [facility] and was surprised the echo was cancelled for 12/27/21. The order was not unlinked, so therefore please add another order for his 01/03/22 appointment in [place] for his echocardiogram. Thank you. documented in this encounter [facility] 11-25-2021 History of Presen t illness [...] suspicious activity was identified. 10/20/2020 by Billie Mauirce APRN.POST GRADUATE INTERN Plan: - Continue Auto CPAP - Remember [...] antihistamines can cause or worsen symptoms. See [facility] message. - iron studies at next office [...] Depression) 3 (None-Minimal Depression) 0 (None-Minimal Depression) [place] Sleepiness Scale 07/12/2020 10/13/2020 11/24/2021 Score - [...] Capsule Take by mouth once daily. omega 1-jga-cct-fish oil (FISH OIL) 100-160-1,000 mg cap Take by mouth. ascorbic acid (SUSAN-C ORAL) Take by mouth. levothyroxine (SYNTHROID) 137 mcg tablet Take 1 tablet by mouth once daily. Except none on sundays allopurinol (ZYLOPRIM) 300 mg tablet Take 1 tablet by mouth once daily. Ipratropium Giddings (ATROVENT) 0.03 % nasal spray Use 2 [...] which included preparing to see the patient, [id number] patient care, completing clinical documentation, obtaining and/or reviewing separately obtained history, performing a medically appropriate examination, counseling and educating the patient/family/caregiver, ordering medications, tests, or procedures, independently interpreting results (not separately reported) and communicating results to the patient/family/caregiver. PDMP website checked and validated. All prescriptions have been APPROPRIATELY filled. No suspicious activity was identified. 11/25/2021 by Elizabeth Loredo MD documented in this encounter [facility] 11-25-2021 Miscellaneous Notes Patient has been identified by name and date of : Yes Patient phones for refill(s): Pending Prescriptions Disp Refills IPRATROPIUM BROMIDE 21 MCG (0.03 %) NASAL SPRAY Sig: Use 2 Sprays in the nose every 12 hours. BARBARA: No Date of last office visit in primary care: 08/11/21 Please advise. Thank you. Zoraida Jackson LPN documented in this encounter [facility] 11-02-2021 Miscellaneous Notes I checked the schedule to see if there was anything available. There are no open slots in the next month. Is it ok for patient to wait till already scheduled appointment. Please review pictures and advise patient. Thanks! documented in this encounter [facility] 09-20-2021 Miscellaneous Notes Spoke to patient's [...] what to do. documented in this encounter [facility] documented as of this encounter (statuses as of 09/20/2021) [facility] History of Past illness Narrative* Problem [...] of this encounter (statuses as of 11/16/2021) [facility] of Past illness Narrative* Problem [...] of this encounter (statuses as of 11/25/2021) [facility] of Past illness Narrative* Problem [...] of this encounter (statuses as of 11/25/2021) [facility] of Past illness Narrative* Problem [...] of this encounter (statuses as of 12/27/2021) [facility] of Past illness Narrative* Problem [...] of this encounter (statuses as of 01/21/2022) [facility] of Past illness Narrative* Problem [...] of this encounter (statuses as of 03/23/2022) [facility] of Past illness Narrative* Problem [...] of this encounter (statuses as of 05/03/2022) [facility] of Past illness Narrative* Problem [...] of this encounter (statuses as of 06/13/2022) [facility] of Past illness Narrative* Problem [...] of this encounter (statuses as of 06/23/2022) [facility] of Past illness Narrative* Problem [...] of this encounter (statuses as of 07/06/2022) [facility] of Past illness Narrative* Problem [...] of this encounter (statuses as of 08/02/2022) [facility] of [facility] illness Narrative* Problem [...] of this encounter (statuses as of 09/15/2022) [facility] of [facility] illness Narrative* Problem [...] of this encounter (statuses as of 09/15/2022) [facility] of [facility] illness Narrative* Problem [...] of this encounter (statuses as of 11/02/2022) [facility] illness Narrative* Problem [...] of this encounter (statuses as of 11/09/2022) [facility] of Past illness Narrative* Problem [...] of this encounter (statuses as of 11/10/2022) [facility] illness Narrative* Problem [...] of this encounter (statuses as of 12/12/2022) [facility] illness Narrative* Problem [...] of this encounter (statuses as of 12/14/2022) [facility] of [facility] illness Narrative* Problem [...] of this encounter (statuses as of 01/12/2023) [facility] illness Narrative* Problem [...] of this encounter (statuses as of 03/03/2023) [facility] illness Narrative* Problem [...] of this encounter (statuses as of 03/17/2023) [facility] Narrative* Problem [...] of this encounter (statuses as of 04/20/2023) [facility] illness Narrative* Problem [...] of this encounter (statuses as of 04/26/2023) [facility] of Past illness Narrative* Problem [...] of this encounter (statuses as of 05/04/2023) [facility] Diagnosis MAXIMILIAN (obstructive sleep apnea)- Primary Obstructive sleep apnea (adult) (pediatric) Restless legs syndrome Restless legs syndrome (RLS) [facility] Diagnosis Mild left ventricular systolic [...] 35-39.9 Obesity, unspecified [facility] Diagnosis Gout with manifestations Gout [...] mitral valve regurgitation [facility] Diagnosis Essential hypertension- Primary Unspecified essential hypertension [facility] Diagnosis Gout with manifestations Gout with other specified manifestations [facility] Diagnosis Acute gout of left ankle, unspecified cause- Primary Acute left ankle pain [facility]* Diagnosis MAXIMILIAN (obstructive sleep apnea)- Primary Obstructive sleep apnea (adult) (pediatric) Restless legs syndrome Restless legs syndrome (RLS) Class 2 obesity with body mass index (BMI) of 35.0 to 35.9 in adult, unspecified obesity type, unspecified whether serious comorbidity present [facility]* Diagnosis Aneurysm of ascending aorta [...] neoplasm of prostate [facility] Diagnosis Actinic keratosis- Primary Notalgia paresthetica Disturbance of skin sensation Inflamed seborrheic keratosis [facility] Diagnosis Mild left ventricular systolic dysfunction- Primary Heart disease, unspecified Essential hypertension Unspecified essential hypertension Mixed hyperlipidemia Ascending aorta dilatation (HCC) Thoracic aortic ectasia MAXIMILIAN (obstructive sleep apnea) Obstructive sleep apnea (adult) (pediatric) Nonrheumatic mitral valve regurgitation [facility]* Diagnosis Actinic keratosis- Primary documented in this encounter [facility] for referral (narrative)* Outpatient Procedure (Routine) - Authorized Specialty Diagnoses / Procedures Referred By Viry santamaria Referred [facility] Diagnoses Ascending aorta dilatation (HCC) 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) Procedures ECHO ECHO TTHRC R-T 2D W/WOM-MODE COMPL SPEC&COLR D Iban Chin APRN.POST GRADUATE INTERN [address] [place] [address] [facility] [place] [address] [place] [address] Referral ID Status Reason Start Date Expiration Date Visits Requested Visits Authorized [id number] Authorized Auto-Generat ed Referral 09/14/2022 09/14/[address] [facility] Health Concerns Infection Onset Date Last [...] or prosecute any alcohol or drug abuse patient.[facility] the event this information is protected by the Federal Confidentiality of Alcohol and Drug Abuse Patient Records regulations: The Federal rules restrict any use of the information to criminally investigate or prosecute any alcohol or drug abuse patient.[facility] the event this information is protected by the Federal Confidentiality of Alcohol and Drug Abuse Patient Records regulations: The Federal rules restrict any use of the information to criminally investigate or prosecute any alcohol or drug abuse patient.[facility] the event this information is protected by the Federal Confidentiality of Alcohol and Drug Abuse Patient Records regulations: The Federal rules restrict any use of the information to criminally investigate or prosecute any alcohol or drug abuse patient.[facility] the event this information is protected by the Federal Confidentiality of Alcohol and Drug Abuse Patient Records regulations: The Federal rules restrict any use of the information to criminally investigate or prosecute any alcohol or drug abuse patient.[facility] the event this information is protected by the Federal Confidentiality of Alcohol and Drug Abuse Patient Records regulations: The Federal rules restrict any use of the information to criminally investigate or prosecute any alcohol or drug abuse patient.[facility] the event this information is protected by the Federal Confidentiality of Alcohol and Drug Abuse Patient Records regulations: The Federal rules restrict any use of the information to criminally investigate or prosecute any alcohol or drug abuse patient.[facility] the event this information is protected by the Federal Confidentiality of Alcohol and Drug Abuse Patient Records regulations: The Federal rules restrict any use of the information to criminally investigate or prosecute any alcohol or drug abuse patient.[facility] the event this information is protected by the Federal Confidentiality of Alcohol and Drug Abuse Patient Records regulations: The Federal rules restrict any use of the information to criminally investigate or prosecute any alcohol or drug abuse patient.[facility] the event this information is protected by the Federal Confidentiality of Alcohol and Drug Abuse Patient Records regulations: The Federal rules restrict any use of the information to criminally investigate or prosecute any alcohol or drug abuse patient.[facility] the event this information is protected by the Federal Confidentiality of Alcohol and Drug Abuse Patient Records regulations: The Federal rules restrict any use of the information to criminally investigate or prosecute any alcohol or drug abuse patient.[facility] the event this information is protected by the Federal Confidentiality of Alcohol and Drug Abuse Patient Records regulations: The Federal rules restrict any use of the information to criminally investigate or prosecute any alcohol or drug abuse patient.[facility]In the event this information is protected by the Federal Confidentiality of Alcohol and Drug Abuse Patient Records regulations: The Federal rules restrict any use of the information to criminally investigate or prosecute any alcohol or drug abuse patient.[facility] the event this information is protected by the Federal Confidentiality of Alcohol and Drug Abuse Patient Records regulations: The Federal rules restrict any use of the information to criminally investigate or prosecute any alcohol or drug abuse patient.[facility] the event this information is protected by the Federal Confidentiality of Alcohol and Drug Abuse Patient Records regulations: The Federal rules restrict any use of the information to criminally investigate or prosecute any alcohol or drug abuse patient.[facility]In the event this information is protected by the Federal Confidentiality of Alcohol and Drug Abuse Patient Records regulations: The Federal rules restrict any use of the information to criminally investigate or prosecute any alcohol or drug abuse patient.[facility]In the event this information is protected by the Federal Confidentiality of Alcohol and Drug Abuse Patient Records regulations: The Federal rules restrict any use of the information to criminally investigate or prosecute any alcohol or drug abuse patient.[facility]In the event this information is protected by the Federal Confidentiality of Alcohol and Drug Abuse Patient Records regulations: The Federal rules restrict any use of the information to criminally investigate or prosecute any alcohol or drug abuse patient.[facility] the event this information is protected by the Federal Confidentiality of Alcohol and Drug Abuse Patient Records regulations: The Federal rules restrict any use of the information to criminally investigate or prosecute any alcohol or drug abuse patient.[facility]In the event this information is protected by the Federal Confidentiality of Alcohol and Drug Abuse Patient Records regulations: The Federal rules restrict any use of the information to criminally investigate or prosecute any alcohol or drug abuse patient.[facility] the event this information is protected by the Federal Confidentiality of Alcohol and Drug Abuse Patient Records regulations: The Federal rules restrict any use of the information to criminally investigate or prosecute any alcohol or drug abuse patient.[facility] the event this information is protected by the Federal Confidentiality of Alcohol and Drug Abuse Patient Records regulations: The Federal rules restrict any use of the information to criminally investigate or prosecute any alcohol or drug abuse patient.[facility] the event this information is protected by the Federal Confidentiality of Alcohol and Drug Abuse Patient Records regulations: The Federal rules restrict any use of the information to criminally investigate or prosecute any alcohol or drug abuse patient.[facility] HospitalIn the event this information is protected by the Federal Confidentiality of Alcohol and Drug Abuse Patient Records regulations: The Federal rules restrict any use of the information to criminally investigate or prosecute any alcohol or drug abuse patient.[facility] the event this information is protected by the Federal Confidentiality of Alcohol and Drug Abuse Patient Records regulations: The Federal rules restrict any use of the information to criminally investigate or prosecute any alcohol or drug abuse patient.[facility] Reason for Visit (unrecogniz ed section [...] Care Teams (unrecognized sec tion and content) Plate Conditioner Relationship Specialty Start Date End Date Bandar Graf PA-C [address] [place] [address] PCP - General Family Practice 07/09/18 Armond El [facility] [place] [address] Car Unloader Helper Cardiology 07/06/21 Plate Conditioner Relationship Specialty Start Date End Date Bandar Graf PA-C [address] [place] [address] PCP - General Family Practice 07/09/18 Armond El [facility] [place] [address] [employer] Helper Cardiology 07/06/21 Plate Conditioner Relationship Specialty Start Date End Date Bandar Graf PA-C [address] [place] [address] PCP - General Family Practice 07/09/18 Armond El [facility] [place] [address] Car [employer] Helper Cardiology 07/06/21 Plate Conditioner Relationship Specialty Start Date End Date Bandar Graf PA-C [address] [place] [address] PCP - General Family Medicine 07/09/18 Armond El DO [address] [place] [address] Car [employer] Helper Cardiology 07/06/21 Plate Conditioner Relationship Specialty Start Date End Date Bandar Graf PA-C [address] [place] [address] PCP - General Family Medicine 07/09/18 Armond El DO [address] [place] [address] [employer] Helper Cardiology 07/06/21 Plate Conditioner Relationship Specialty Start Date End Date Bandar Graf PA-C [address] [place] [address] PCP - General Family Medicine 07/09/18 Armond El DO [address] [place] [address] Car [employer] Helper Cardiology 07/06/21 Plate Conditioner Relationship Specialty Start Date End Date Bandar Graf PA-C [address] [place] [address] PCP - General Family Medicine 07/09/18 Armond El [address] [place] [address] [employer] Helper Cardiology 07/06/21 Plate Conditioner Relationship Specialty Start Date End Date Bandar Graf PA-C [address] [place] [address] PCP - General Family Medicine 07/09/18 Armond El DO [address] [place] [address] Car [employer] Helper Cardiology 07/06/21 Plate Conditioner Relationship Specialty Start Date End Date Bandar Graf PA-C [address] [place] [address] PCP - General Family Medicine 07/09/18 Armond El DO [address] [place] [address] [employer] Cardiology 07/06/21 Plate Conditioner Relationship Specialty Start Date End Date Bandar Graf PA-C [address] [place] [address] PCP - General Family Medicine 07/09/18 Armond El, [facility] [place] [address] Car [employer] Helper Cardiology 07/06/21 Plate Conditioner Relationship Specialty Start Date End Date Bandar Graf PA-C [address] [place] [address] PCP - General Family Medicine 07/09/18 Armond El [facility] [place] [address] [employer] Helper Cardiology 07/06/21 Plate Conditioner Relationship Specialty Start Date End Date Bandar Graf PA-C [address] [place] [address] PCP - General Family Medicine 07/09/18 Armond El [facility] [place] [address] Car [employer] Helper Cardiology 07/06/21 Plate Conditioner Relationship Specialty Start Date End Date Bandar Graf PA-C [address] [place] [address] PCP - General Family Medicine 07/09/18 Armond El [facility] [place] [address] Car [employer] Helper Cardiology 07/06/21 Plate Conditioner Relationship Specialty Start Date End Date Bandar Graf PA-C [address] [place] [address] PCP - General Family Medicine 07/09/18 Armond El DO [address] [place] [address] [employer] Helper Cardiology 07/06/21 Plate Conditioner Relationship Specialty Start Date End Date Bandar Graf PA-C [address] [place] [address] PCP - General Family Medicine 07/09/18 Armond El DO [facility] [place] [address] Car [employer]loader Helper Cardiology 07/06/21 Plate Conditioner Relationship Specialty Start Date End Date Bandar Graf PA-C [address] [place] [address] PCP - General Family Medicine 07/09/18 Armond El [place] [facility] [place] [address] [employer] Helper Cardiology 07/06/21 Plate Conditioner Relationship Specialty Start Date End Date Bandar Graf PA-C [address] [place] [address] PCP - General Family Medicine 07/09/18 Armond El [place] [facility] [place] [address] Car [employer] Helper Cardiology 07/06/21 Plate Conditioner Relationship Specialty Start Date End Date Bandar Graf PA-C [address] [place] [address] PCP - General Family Medicine 07/09/18 Armond El DO [address] [place] [address] [employer] Helper Cardiology 07/06/21 Plate Conditioner Relationship Specialty Start Date End Date Bandar Graf PA-C [address] [place] [address] PCP - General Family Medicine 07/09/18 Armond El DO [address] [place] [address] [employer] Helper Cardiology 07/06/21 (unrecognized sect ion and content) [...] BE BASED ON THE PRIMARY CLINICAL RECORDS. [email or web address] provides no warranty or guarantee of the accuracy or completeness of information in this document.
[2023-06-28] MEDS: 0.9% Normal Saline (1000mL) 1,000 ML 1000 ML IV (20:13)
[2023-06-28] MEDS: Morphine 2 MG/ML Syringe IV (20:13)
[2023-06-28] MEDS: Ketorolac 15 MG/ML Vial IV (20:13)
[2023-06-28] MEDS: Ondansetron 4 MG/2 ML Vial IV (20:13)
[2023-06-28 20:22] VITALS: BP 143/70; PULSE 60; RESP 18; O2SAT 94
[2023-06-28 20:24] VITALS: BP 143/70; PULSE 60; RESP 18; TEMP 36.6; O2SAT 94
--- NOTE | 2023-06-28 20:30 | CT_ITS ---
STUDY: CT ABDOMEN AND PELVIS WITHOUT CONTRAST REASON FOR EXAM: Male, 67 years old. Worsened right flank pain RADIATION DOSAGE (If Supplied By Facility): CTDIvol = ( 22.90 ) mGy, DLP = ( 1373.25 ) mGycm TECHNIQUE: Transaxial images were obtained from the dome of the diaphragm to the symphysis pubis without oral contrast, and without intravenous contrast. Sagittal and coronal images were reconstructed. Individualized dose optimization techniques were used for this CT. COMPARISON: June 27, 2023 FINDINGS: The visualized lung bases are unremarkable. There are coronary artery calcifications. Normal liver. Normal gallbladder and extrahepatic biliary system. Normal spleen. Normal pancreas. Normal bilateral adrenal glands. There are 2 stones of the right kidney measuring 0.4 cm. There is 1.2 cm cyst of the right kidney. There is mild right hydronephrosis with increased perinephric and periureteral stranding. There are at least 5 stones of the left kidney measuring 0.2 to 0.6 cm. There is 3.4 cm cyst of the left kidney. Normal visualized stomach. Normal small intestine. Normal colon. The appendix is visualized and appears normal. There is diffuse atherosclerotic calcification of the abdominal aorta, without a demonstrated aneurysm. Normal inferior vena cava. Normal retroperitoneum. There is 0.6 cm stone in the right side of the urinary bladder adjacent to the ureterovesical junction. There is no free fluid in the abdomen or pelvis. Normal abdominal wall. There is degenerative change of the spine. CT/Abdomen/Pelvis without Cont IMPRESSION: Bilateral renal stones. Right ureterovesical junction stone with hydronephrosis. Electronically Signed: Jose Luis Brooks MD at 22:43 EST ,
--- NOTE | 2023-06-28 23:03 | EX.ED.DYSGE1 ---
HPI History of Present Illness Chief Complaint: Abd Pain Informant: patient Onset/Context/Timing Onset: Yesterday Narrative Narrative: Patient presents secondary to right flank pain. Patient was seen in the emergency room yesterday and diagnosed with a kidney stone that appeared to be in the bladder. Patient states he did take a pain pill when he first got up this morning. He was active and doing things around his home but got recurrent pain again this evening. He has been drinking a lot of fluids. No fever or chills. [facility] Medical History (Updated 06/28/23 @ 23:[address] Jessica Mendoza MD) Basal cell carcinoma Gout HTN (hypertension) Hyperlipidemia Kidney stone Pyelonephritis Restless leg syndrome Thyroid cancer Vertigo Home Medications Ibuprofen [Motrin] 800 mg PO TID PRN PRN Pain #20 tabs 07/04/14 [Rx Last Taken Unknown] cyclobenzaprine 10 mg tablet 10 mg PO TID PRN Muscle Spasm ##20 07/04/14 [Rx Last Taken Unknown] hydrocodone-acetaminophen 5-325mg 5mg-325mg 1 tab PO Q6H PRN PRN Pain ##10 07/04/14 [Rx Last Taken Unknown] hydrocodone-acetaminophen 5-325mg 5mg-325mg 1 tab PO Q4H PRN PRN Pain 2 days #10 TABLETS 06/27/23 [Rx Last Taken Unknown] ondansetron 4 mg disintegrating tablet 4 mg PO Q8H PRN PRN Nausea #10 tabs 06/27/23 [Rx Last Taken Unknown] tamsulosin 0.4 mg capsule (Flomax) 0.4 mg PO DAILY #7 caps 06/28/23 [Rx Last Taken Unknown] Allergy/AdvReac Type Severity Reaction Status Date / Time No Known Allergies Allergy Verified 06/28/23 18:26 Social History Smoking Status: Never smoker ROS ROS ED Constitutional Constitutional ED: Denies chills or fever(s) Eyes Eyes: Denies discharge from eye(s) ENT ENT ED: Denies discharge from eye(s), rhinorrhea or sore throat Cardiovascular Cardiovascular: Denies chest pain or palpitations Respiratory/Chest Respiratory/Chest: Denies cough or dyspnea Gastrointestinal Gastrointestinal: Reports abdominal pain; Denies nausea or vomiting Genitourinary Genitourinary ED: Denies difficulty urinating or dysuria Musculoskeletal Musculoskeletal: Reports back pain; Denies extremity pain Integumentary Denies Abrasions or rash Neurologic Neurologic: Denies headache(s) or weakness Allergic/Immunologic Allergic/Immunologic ED: Denies lip swelling or urticaria EXAM Physical Exam Const Vital Signs: 06/28/23 18:27 06/28/23 20:22 06/28/23 20:24 Temperature 97.9 F 97.9 F Temperature Source Temporal Temporal Pulse Rate 68 60 60 Respiratory Rate 19 H 18 18 Blood Pressure 131/108 H 143/70 H 143/70 H Blood Pressure Mean 115 94 94 Pulse Ox 96 94 94 Oxygen Delivery Method Room Air Room Air Room Air 06/28/23 23:06 Temperature Temperature Source Pulse Rate 64 Respiratory Rate 16 Blood Pressure 140/64 H Blood Pressure Mean 89 Pulse Ox 97 Oxygen Delivery Method Positive well nourished and well developed General Appearance ED: well developed HEENT Reports moist mucous membranes Eyes EOMs intact bilaterally Chest Wall inspection of chest normal and palpation of chest normal Resp normal respiratory effort and clear to auscultation bilaterally Cardio regular rate and regular rhythm GI GI Narrative: Abdomen soft with no reproducible tenderness to palpation. Active bowel sounds noted. Extremity normal to inspection Neuro oriented x3 and no sensory deficits noted Motor Exam: strength 5/5 throughout Psych mental status grossly normal Skin no rashes or lesions noted MDM MDM MDM Narrative Medical decision making narrative: Patient's visit yesterday is reviewed. IV line is established. Labwork obtained to evaluate for leukocytosis, anemia, and electrolyte derangement. Urinalysis obtained to evaluate for infection/hematuria. Given the patient had 2 right renal stones and now has recurrent pain repeat CT is obtained to evaluate for ureteral stone, obstruction. Patient given a small dose of morphine along with Toradol and Zofran. Patient given 1 L of IV fluids. History & Record Review Discussion w/independent historian: Patient and Family Additional record(s) reviewed:: Prior ED visit and Prior labs Lab Data Attestation: I reviewed the patient's lab results. Labs: Laboratory Results - last 24 hr 06/28/23 06/28/23 18:48 18:49 WBC 8.1 RBC 4.36 L Hgb 12.4 L Hct 38.4 L MCV 88.1 MCH 28.4 MCHC 32.3 RDW Std Deviation 41.9 RDW Coeff of Yoselyn 13.0 Plt Count 188 MPV 10.2 Immature Gran % (Auto) 0.200 Neut % (Auto) 69.4 Lymph % (Auto) 20.2 Bowie % (Auto) 6.9 Eos % (Auto) 2.8 Baso % (Auto) 0.5 Absolute Neuts (auto) 5.6 Absolute Lymphs (auto) 1.64 Nucleated RBC % 0 Sodium 137 Potassium 4.0 Chloride 107 Carbon Dioxide 29.0 Anion Gap 1 L BUN 27 H Creatinine 2.13 H Estim Creat Clear Calc 44.43 Est GFR (MDRD) Af Amer 40 L Est GFR (MDRD) Non-Af 33 L BUN/Creatinine Ratio 12.7 Glucose 114 H Calcium 9.3 Total Bilirubin 0.60 AST 16 ALT 26 Alkaline Phosphatase 64 Total Protein 6.8 Albumin 3.5 Globulin 3.3 Albumin/Globulin Ratio 1.1 Urine Color Yellow Urine Clarity Clear Urine pH 6.0 Ur Specific Nelson 1.010 Urine Protein Negative Urine Glucose (UA) Normal Urine Ketones Negative Urine Occult Blood 50 H Urine Nitrite Negative Urine Bilirubin Negative Urine Urobilinogen Normal Ur Leukocyte Esterase 100 H Urine RBC 0-5 SEEN Urine WBC 0-5 SEEN Ur Squamous Epith Cells 0 SEEN Urine Bacteria 0 SEEN Urine Mucus 0 SEEN Radiography Diagnostic Testing: Clinical Impression(s) from Imaging Studies Abdomen/Pelvis CT 06/28/23 20:30 IMPRESSION: Bilateral renal stones. Right ureterovesical junction stone with hydronephrosis. Electronically Signed: Jose Luis Brooks MD at 22:43 EST Reading Location ID and State: [address] [place] [address] , Service support , Treatment and Re-Evaluation :: CBC was normal white count 8.1 with a hemoglobin of 12.4. Normal differential. Chemistry studies reveal a BUN of 27 and a creatinine of 2.13. This is slightly bumped from yesterday when his creatinine was 1.61. Urinalysis reveals 0-5 white cells with no bacteria. 0-5 red cells are also noted. CT scan of the abdomen and pelvis reveals bilateral renal stones. There is a stone at the right UVJ with hydronephrosis. Test results are discussed with patient and at bedside. Pain is much improved at this time. We did discuss that I believe the stone is still passing through the tube at the bladder wall and not actually fallen into the bladder wall. The perinephric stranding appears to be improved when I compare this to yesterday's scan. He has been given a liter IV fluids here to help with hydration. He will be given Flomax, first dose given here. We also discussed taking ibuprofen or Aleve to help with the ureteral spasm. Patient needs to follow-up in the next couple days for repeat labs. He was having difficulty getting into the urologist at [facility] and is also given information for Dr. Weeks here at the hospital. Patient is comfortable with the plan. Return instructions given. Discharge Plan Triage Chief Complaint: Abd Pain ED Provider: Jessica Mendoza Dx/Rx/DC Orders Clinical Impression: Ureterolithiasis Instructions: ED Kidney Stone with Pain Prescriptions: New tamsulosin [Flomax] 0.4 mg capsule 0.4 mg PO DAILY Qty: 7 0RF No Action Ibuprofen [Motrin] 800 MG tablet 800 mg PO TID PRN PRN (Reason: Pain) Qty: 20 0RF Rx Instructions: cyclobenzaprine 10 MG tablet 10 mg PO TID PRN (Reason: Muscle Spasm) Qty: 20 0RF hydrocodone-acetaminophen 1 TABLET tablet 1 tab PO Q6H PRN PRN (Reason: Pain) Qty: 10 0RF hydrocodone-acetaminophen [hydrocodone-acetaminophen] 5-325 mg tablet 1 tab PO Q4H PRN PRN (Reason: Pain) 2 Days Qty: 10 0RF ondansetron [ondansetron] 4 mg tablet,disintegrating 4 mg PO Q8H PRN PRN (Reason: Nausea) Qty: 10 0RF Primary Care Provider: Anthony Solano Referrals: David Weeks MD [Med Staff - Active Staff] - 3-5 Days Anthony Solano MD [Primary Care Provider] - Disposition Disposition: Home, Self Care Discharge Date/Time: 06/28/23 23:16
[2023-06-28 23:06] VITALS: BP 140/64; PULSE 64; RESP 16; O2SAT 97
[2023-06-28] MEDS: Tamsulosin HCl 0.4 MG Capsule 0.400000000000000022 MG PO (23:13)
== END 2023-06-28 23:16 | disposition home or self-care (01) ==
PROVIDERS: Emergency Provider Emergency Medicine; PCP Family Medicine; Visit Provider Emergency Medicine
DX: N13.2 Hydronephrosis with renal and ureteral calculous obstruction (principal); I10 Essential (primary) hypertension; E78.5 Hyperlipidemia, unspecified; Z85.850 Personal history of malignant neoplasm of thyroid
CPT/HCPCS: 74176; 80053; 81001; 85025; 96361; 96374; 96375; 99283; J7030; A4216; J2405

== ENCOUNTER 2023-10-14 04:51 | Emergency (ER) | payer MEDICARE, OTHER, SELFPAY ==
[2023-10-14 04:52] VITALS: BP 192/94; PULSE 54; RESP 16; TEMP 36.6; O2SAT 98; BMI 38.0
--- NOTE | 2023-10-14 04:58 | CT_ITS ---
INDICATION: left flank pain EXAMINATION: CT ABDOMEN AND PELVIS WITHOUT CONTRAST - CT Abdomen And Pelvis W/O Contrast Injection TECHNIQUE: Helically acquired images were obtained of the abdomen and pelvis without oral or IV contrast. A radiation dose optimization technique was used for this scan. IV Contrast dosage and agent: None. Oral contrast: None. RADIATION DOSAGE (If Supplied By Facility): CTDIvol = ( 21.01 ) mGy, DLP = ( 1159.90 ) mGycm COMPARISON: CT Abdomen/PelvisJun 28 2023 FINDINGS: LOWER CHEST: Lung bases are clear. No cardiomegaly or pericardial effusion. LIVER: Homogeneous. No focal mass. GALLBLADDER AND BILIARY TREE: No calcified gallstones. No gallbladder distension or wall edema. No intra- or extrahepatic biliary ductal dilation. PANCREAS: No focal cystic or solid mass. SPLEEN: Normal size without focal cystic or solid mass. ADRENAL GLANDS: No nodules. KIDNEYS AND URETERS: 6 mm stone in proximal left ureter with resultant moderate left hydronephrosis. Multiple bilateral nonobstructive kidney stones the largest measures 5 mm. Left renal cyst measures 4.3 cm . PERITONEUM: No ascites or free air. No other fluid collection. BOWEL: No evidence of acute appendicitis. No stomach or bowel distension. No focal inflammatory change. LYMPH NODES: No enlarged mesenteric or retroperitoneal lymph nodes. VESSELS: Aorta is non-dilated. URINARY BLADDER: Unremarkable. REPRODUCTIVE ORGANS: No pelvic masses. ABDOMINAL WALL: No discrete abdominal or pelvic wall hernia. BONES: No lytic or blastic abnormality. CT/Abdomen/Pelvis without Cont IMPRESSION: 6 mm stone in proximal left ureter with resultant moderate left hydronephrosis. Multiple bilateral nonobstructive kidney stones the largest measures 5 mm. Electronically Signed: Jeffery Hurley MD at 7:09 EDT ,
--- NOTE | 2023-10-14 04:59 | EX.ED.DYSGE1 ---
HPI History of Present Illness Chief Complaint: Flank Pain Informant: patient Onset/Context/Timing Onset: Today Narrative Narrative: Patient presents with left flank pain that woke him from sleep at 1 AM this morning. He has a history of kidney stones and follows with Dr. Bear at the [facility]. He states has been told he had multiple small stones in each kidney. He has had dribbling of urination this morning with start/stop to his stream. [facility] Medical History Basal cell carcinoma Gout HTN (hypertension) Hyperlipidemia Kidney stone Pyelonephritis Restless leg syndrome Thyroid cancer Vertigo Home Medications allopurinol 300 mg tablet 300 mg PO DAILY 10/14/23 [History Last Taken Unknown] gabapentin 300 mg capsule 300 mg PO QHS 10/14/23 [History Last Taken Unknown] hydrocodone-acetaminophen 5-325mg 5mg-325mg 1 tab PO Q6H PRN PRN Pain 3 days #10 TABLETS 10/14/23 [Rx Last Taken Unknown] ibuprofen 400 mg tablet 400 mg PO Q8H PRN pain #14 tabs 10/14/23 [Rx Last Taken Unknown] levothyroxine 137 mcg tablet 137 mcg PO MOTUWETHFRSA 10/14/23 [History Last Taken Unknown] lisinopril 5 mg tablet 5 mg PO DAILY 10/14/23 [History Last Taken Unknown] ondansetron 4 mg disintegrating tablet 4 mg PO Q8H PRN PRN Nausea #10 tabs 10/14/23 [Rx Last Taken Unknown] rosuvastatin 20 mg tablet 20 mg PO QHS 10/14/23 [History Last Taken Unknown] tamsulosin 0.4 mg capsule (Flomax) 0.4 mg PO DAILY PRN urination 10/14/23 [History Last Taken Unknown] Allergy/AdvReac Type Severity Reaction Status Date / Time No Known Allergies Allergy Verified 10/14/23 04:53 Social History Smoking Status: Never smoker ROS ROS ED Constitutional Constitutional ED: Denies chills or fever(s) Eyes Eyes: Denies discharge from eye(s) ENT ENT ED: Denies discharge from eye(s), rhinorrhea or sore throat Cardiovascular Cardiovascular: Denies chest pain or palpitations Respiratory/Chest Respiratory/Chest: Denies cough or dyspnea Gastrointestinal Gastrointestinal: Reports abdominal pain; Denies nausea or vomiting Genitourinary Genitourinary ED: Reports difficulty urinating; Denies dysuria Musculoskeletal Musculoskeletal: Reports back pain; Denies extremity pain Integumentary Denies Abrasions or rash Neurologic Neurologic: Denies headache(s) or weakness Psychiatric Psychiatric: Denies anxiety or depression Allergic/Immunologic Allergic/Immunologic ED: Denies lip swelling or urticaria EXAM Physical Exam Const Vital Signs: 10/14/23 04:52 10/14/23 05:51 10/14/23 06:00 Temperature 98 F Temperature Source Temporal Pulse Rate 54 L 74 70 Respiratory Rate 16 16 17 Blood Pressure 192/94 H 142/81 H 135/67 H Blood Pressure Mean 126 101 89 Pulse Ox 98 96 96 Oxygen Delivery Method Room Air Room Air 10/14/23 07:00 Temperature 97.3 F L Temperature Source Temporal Pulse Rate 50 L Respiratory Rate 17 Blood Pressure 129/63 H Blood Pressure Mean 85 Pulse Ox 97 Oxygen Delivery Method Room Air Positive well nourished and well developed General Appearance ED: well developed HEENT Reports moist mucous membranes Eyes EOMs intact bilaterally Chest Wall inspection of chest normal and palpation of chest normal Resp normal respiratory effort and clear to auscultation bilaterally Cardio regular rate and regular rhythm GI GI Narrative: Abdomen soft with no focal tenderness. No guarding or rebound. Back/Spine General Back: CVA tenderness left Neuro oriented x3 and no sensory deficits noted Motor Exam: strength 5/5 throughout Psych mental status grossly normal Skin no rashes or lesions noted MDM MDM MDM Narrative Medical decision making narrative: IV line established. Patient given IV fluids, Toradol, morphine, and Zofran. Labwork obtained to evaluate for leukocytosis, anemia, and electrolyte derangement. Urinalysis obtained to evaluate for infection/hematuria. CT flank obtained to evaluate for renal stone size and location. History & Record Review Discussion w/independent historian: Patient Lab Data Attestation: I reviewed the patient's lab results. Labs: Laboratory Results - last 24 hr 10/14/23 10/14/23 05:06 07:10 WBC 6.2 RBC 4.21 L Hgb 12.0 L Hct 37.6 L MCV 89.3 MCH 28.5 MCHC 31.9 L RDW Std Deviation 45.0 H RDW Coeff of Yoselyn 13.8 Plt Count 226 MPV 10.2 Immature Gran % (Auto) 0.300 Neut % (Auto) 56.2 Lymph % (Auto) 28.1 [place] % (Auto) 8.5 Eos % (Auto) 6.3 H Baso % (Auto) 0.6 Absolute Neuts (auto) 3.5 Absolute Lymphs (auto) 1.74 Nucleated RBC % 0 Sodium 139 Potassium 4.3 Chloride 108 H Carbon Dioxide 26.0 Anion Gap 5 BUN 20 H Creatinine 1.53 H Estim Creat Clear Calc 60.18 Est GFR (MDRD) Af Amer 58 L Est GFR (MDRD) Non-Af 48 L BUN/Creatinine Ratio 13.1 Glucose 134 H Calcium 9.5 Urine Color Yellow Urine Clarity Clear Urine pH 6.0 Ur Specific [place] 1.010 Urine Protein Negative Urine Glucose (UA) Normal Urine Ketones Negative Urine Occult Blood 50 H Urine Nitrite Negative Urine Bilirubin Negative Urine Urobilinogen Normal Ur Leukocyte Esterase 25 H Urine RBC 0-5 SEEN Urine WBC 0-5 SEEN Ur Squamous Epith Cells 0-5 SEEN Urine Bacteria 0 SEEN Urine Mucus 0 SEEN Radiography Diagnostic Testing: Clinical Impression(s) from Imaging Studies Abdomen/Pelvis CT 10/14/23 04:58 IMPRESSION: 6 mm stone in proximal left ureter with resultant moderate left hydronephrosis. Multiple bilateral nonobstructive kidney stones the largest measures 5 mm. Electronically Signed: Jeffery Hurley MD at 7:09 EDT Reading Location ID and State: [facility] / [place] Tel , Service support , Treatment and Re-Evaluation :: CBC was normal white count at 6.2 with a hemoglobin of 12.0. Differential unremarkable. Chemistry studies reveal a BUN of 20 and creatinine 1.53. This is improved when compared to his most recent labs. Glucose is 134. CT scan of the abdomen and pelvis reveals a 6 mm stone in the proximal left ureter with moderate left hydronephrosis. Multiple bilateral nonobstructive kidney stones are noted, the largest measuring 5 mm. Urinalysis is obtained and reveals evidence of blood but no evidence of infection. Test results discussed with the patient. His pain is well-controlled at this time. He would like to try going home with analgesics, understanding that he may or may not pass this 6 mm stone that is still in the proximal ureter. He is given return instructions, and will call his urologist on Monday morning. Prescriptions sent to local pharmacy for him. Discharge Plan Triage Chief Complaint: Flank Pain ED Provider: Jessica Mendoza Dx/Rx/DC Orders Clinical Impression: Ureterolithiasis Instructions: ED Kidney Stone with Pain Prescriptions: New hydrocodone-acetaminophen 5-325 mg tablet 1 tab PO Q6H PRN PRN (Reason: Pain) 3 Days Qty: 10 0RF ibuprofen 400 mg tablet 400 mg PO Q8H PRN (Reason: pain) Qty: 14 0RF ondansetron 4 mg tablet,disintegrating 4 mg PO Q8H PRN PRN (Reason: Nausea) Qty: 10 0RF No Action levothyroxine 137 mcg tablet 137 mcg PO MOTUWETHFRSA gabapentin 300 mg capsule 300 mg PO QHS lisinopril 5 mg tablet 5 mg PO DAILY rosuvastatin 20 mg tablet 20 mg PO QHS tamsulosin [Flomax] 0.4 mg capsule 0.4 mg PO DAILY PRN (Reason: urination) allopurinol 300 mg tablet 300 mg PO DAILY Primary Care Provider: Anthony Solano Referrals: Anthony Solano MD [Primary Care Provider] - Activity Restrictions/Additional Instructions: Follow-up with your urologist on Monday. Disposition Disposition: Home, Self Care
[2023-10-14] MEDS: Ketorolac 15 MG/ML Vial IV (05:11)
[2023-10-14] MEDS: Ondansetron 4 MG/2 ML Vial IV (05:11)
[2023-10-14] MEDS: Morphine 4 MG/ML Syringe IV (05:12)
[2023-10-14 05:13] LABS: Absolute Lymphocyte Count 1.74 X10^3/uL (0.83-4.51); Absolute Neutrophil Count 3.5 X10^3/uL (2.0-7.7); Basophil# 0.04 X10^3/uL; Basophil% 0.6 % (0-1); Eosinophil# 0.39 X10^3/uL; Eosinophils% 6.3 % (0-5); Hematocrit 37.6 % (40-54); Lymphocyte # 1.74 X10^3/ul (0.83-4.51); Lymphocyte % 28.1 % (19-41); Mean Corp Hgb Conc 31.9 g/dL (32-36); Mean Corpuscular Hgb 28.5 pg (27.0-32.0); Mean Corpuscular Volume 89.3 fL (80-94); Mean Platelet Vol. 10.2 fl (6.2-12.0); Monocyte# 0.53 X10^3/uL; Monocyte% 8.5 % (0-10); NRBC Flagged by Analyzer 0 % (0-5); Neutrophil # 3.48 X10^3/uL (2.7-7.7); Neutrophil % 56.2 % (47-70); Platelet Count 226 K/mm3 (150-450); RBC Distribution Width CV 13.8 % (11.6-14.6); Red Blood Count 4.21 M/mm3 (4.6-6.2); White Blood Count 6.2 K/mm3 (4.4-11.0)
[2023-10-14] MEDS: 0.9% Normal Saline (1000mL) 1,000 ML 150 ML IV (05:14)
[2023-10-14 05:27] LABS: Anion Gap 5 (5-15); BUN 20 mg/dL (7-18); BUN/Creat Ratio 13.1 RATIO (10-20); Calcium,Total 9.5 mg/dL (8.5-10.1); Chloride 108 mmol/L (98-107); Creatinine, Serum 1.53 mg/dL (0.70-1.30); EST Glomerular Filtration Rate 48 mL/min (>60); Est Glom Filt Rate - Afr Amer 58 mL/min (>60); Estimated Creatinine Clearance 60.18 ml/min; Glucose 134 mg/dL (74-106); Potassium 4.3 mmol/L (3.5-5.1); Sodium Level 139 mmol/L (136-145)
[2023-10-14 05:51] VITALS: BP 142/81; PULSE 74; RESP 16; O2SAT 96
[2023-10-14 06:00] VITALS: BP 135/67; PULSE 70; RESP 17; O2SAT 96
[2023-10-14 07:00] VITALS: BP 129/63; PULSE 50; RESP 17; TEMP 36.3; O2SAT 97
[2023-10-14 07:18] LABS: Bacteria 0 SEEN /hpf (None Seen); Mucous, Urine 0 SEEN /hpf (<or=2+)
[2023-10-14 07:26] LABS: Glucose, Dipstick Normal (Normal); Ketone-Dipstick Negative (Negative); Leukocyte Esterase-Dipstick 25 /ul (Negative); Nitrite-Dipstick Negative (Negative); Occult Blood-Urine 50 /ul (Negative); Protein-Dipstick Negative (Negative); Urine Bilirubin Dipstick Negative (Negative); Urine Urobilinogen Normal (Normal)
[2023-10-14 07:33] LABS: Color, Urine Yellow (Yellow); Red Blood Cells-Urine 0-5 SEEN /hpf (0-5); Squamous Epithelial Cells - UA 0-5 SEEN /hpf (0-5); Urine Clarity Clear (Clear); White Blood Cells 0-5 SEEN /hpf (0-5)
[2023-10-14 07:56] VITALS: BP 121/71; PULSE 60; RESP 16; TEMP 36.6; O2SAT 99
== END 2023-10-14 07:57 | disposition home or self-care (01) ==
PROVIDERS: Emergency Provider Emergency Medicine; PCP Family Medicine; Visit Provider Emergency Medicine
DX: N13.2 Hydronephrosis with renal and ureteral calculous obstruction (principal); I10 Essential (primary) hypertension; E78.5 Hyperlipidemia, unspecified; Z85.850 Personal history of malignant neoplasm of thyroid; M10.9 Gout, unspecified; Z85.828 Personal history of other malignant neoplasm of skin; Z79.899 Other long term (current) drug therapy
CPT/HCPCS: 74176; 80048; 81001; 85025; 96361; 96374; 96375; 99283; J7030; A4216; J2405

== ENCOUNTER 2023-10-14 22:41 | Observation (INO) | payer MEDICARE, OTHER, SELFPAY ==
[2023-10-14 22:41] VITALS: BP 161/101; PULSE 72; RESP 17; TEMP 36.4; O2SAT 98; BMI 38.1
--- NOTE | 2023-10-14 23:02 | ED.VIS.GI ---
HPI HPI - GI History of Present Illness Chief Complaint: Abd Pain Informant: patient Abdominal Pain/Flank Pain Onset: Yesterday Context: Sudden Onset Timing: Continuous Quality: Aching Location: Left Flank Worsened by: - (Breathing) Relieved by: Nothing Nausea/Vomiting/Emesis GI Symptom: Positive for Nausea; Negative for Vomiting Diarrhea/Melena/Hematochezia GI Symptom: Negative for Diarrhea, Melena or Hematochezia Associated Symptoms Associated Symptoms: Positive for Urgency; Negative for Dysuria, Frequency or Hematuria Narrative Narrative: Patient presents with left flank pain that began yesterday. Patient was seen here earlier this morning for this. Patient was diagnosed with a 6 mm left proximal ureteral calculus. Patient stated he wanted to go home at that time. Patient was given prescriptions for [place], Zofran, and Flomax. Patient states the [place] has not been helping. Patient states that the Zofran has been helping with nausea. Patient describes his pain as aching. Patient states it is over the left flank area. Patient states it is worse with deep breathing. Patient admits to some nausea but denies any vomiting. Patient denies any diarrhea, melena, or hematochezia. Patient admits to some urinary urgency but denies any dysuria, frequency, or hematuria. [facility] Medical History (Updated 10/15/23 @ 04:[address] Heron Rodriguez, ) Basal cell carcinoma Gout HTN (hypertension) Hyperlipidemia Kidney stone Pyelonephritis Restless leg syndrome Thyroid cancer Vertigo Home Medications allopurinol 300 mg tablet 300 mg PO DAILY 10/14/23 [History Last Taken Unknown] gabapentin 300 mg capsule 300 mg PO QHS 10/14/23 [History Last Taken Unknown] hydrocodone-acetaminophen 5-325mg 5mg-325mg 1 tab PO Q6H PRN PRN Pain 3 days #10 TABLETS 10/14/23 [Rx Last Taken Unknown] ibuprofen 400 mg tablet 400 mg PO Q8H PRN pain #14 tabs 10/14/23 [Rx Last Taken Unknown] levothyroxine 137 mcg tablet 137 mcg PO MOTUWETHFRSA 10/14/23 [History Last Taken Unknown] lisinopril 5 mg tablet 5 mg PO DAILY 10/14/23 [History Last Taken Unknown] ondansetron 4 mg disintegrating tablet 4 mg PO Q8H PRN PRN Nausea #10 tabs 10/14/23 [Rx Last Taken Unknown] rosuvastatin 20 mg tablet 20 mg PO QHS 10/14/23 [History Last Taken Unknown] tamsulosin 0.4 mg capsule (Flomax) 0.4 mg PO DAILY PRN urination 10/14/23 [History Last Taken Unknown] Allergy/AdvReac Type Severity Reaction Status Date / Time No Known Allergies Allergy Verified 10/14/23 22:42 Surgical History History of thyroid surgery Social History Smoking Status: Never smoker ROS ROS ED Constitutional Constitutional ED: Denies chills or fever(s) Eyes Eyes: Denies blurry vision or change in vision ENT ENT ED: Denies rhinorrhea or sore throat Cardiovascular Cardiovascular: Denies chest pain or palpitations Respiratory/Chest Respiratory/Chest: Denies cough or dyspnea Gastrointestinal Gastrointestinal: Reports abdominal pain; Denies nausea or vomiting Genitourinary Genitourinary ED: Denies dysuria or hematuria Musculoskeletal Musculoskeletal: Reports back pain; Denies neck pain Integumentary Denies abscess or rash Neurologic Neurologic: Denies headache(s) or weakness Allergic/Immunologic Allergic/Immunologic ED: Denies mouth swelling or urticaria EXAM Physical Exam Const Vital Signs: 10/14/23 22:41 10/15/23 00:41 10/15/23 02:00 Temperature 97.6 F L Temperature Source Temporal Pulse Rate 72 60 66 Respiratory Rate 17 18 16 Blood Pressure 161/101 H 109/63 148/86 H Blood Pressure Mean 121 78 106 Pulse Ox 98 97 95 Oxygen Delivery Method Room Air Room Air Room Air 10/15/23 04:00 Temperature Temperature Source Pulse Rate 64 Respiratory Rate 16 Blood Pressure 163/84 H Blood Pressure Mean 110 Pulse Ox 99 Oxygen Delivery Method Room Air Positive well nourished and well developed General Appearance ED: well developed and NAD HEENT Reports moist mucous membranes Neck supple and no JVD Resp normal respiratory effort and clear to auscultation bilaterally Cardio regular rate and regular rhythm GI non-distended Palpation: soft and tender LLQ and LUQ; Negative for guarding or rebound tenderness present Back/Spine General Back: CVA tenderness left Extremity full ROM Neuro CN's II-XII intact bilaterally, moves all extremities and no sensory deficits noted Sensorium / Orientation: alert Motor Exam: strength 5/5 throughout MDM MDM MDM Narrative Medical decision making narrative: Differential diagnosis includes ureteral calculus, acute kidney injury, electrolyte abnormality, and infection. Patient had a CT scan earlier today. This will not need to be repeated. CBC will be obtained to assess for leukocytosis and anemia. Basic metabolic profile will be obtained to assess for electrolyte abnormality and renal function. Urinalysis will be obtained to assess for urinary tract infection or hematuria. Lab Data Attestation: I reviewed the patient's lab results. Lab results narrative: CBC was reviewed. There is a mild anemia with a hemoglobin of 11.5 and hematocrit 35.2. Basic metabolic profile was reviewed. BUN was elevated at 22 and creatinine was elevated at 2.1. These are increased from previous results. Urinalysis was reviewed. There is no evidence of urinary tract infection or hematuria. Labs: Laboratory Results - last 24 hr 10/15/23 10/15/23 00:40 01:45 WBC 7.8 RBC 3.92 L Hgb 11.5 L Hct 35.2 L MCV 89.8 MCH 29.3 MCHC 32.7 RDW Std Deviation 45.6 H RDW Coeff of Yoselyn 13.8 Plt Count 199 MPV 10.1 Immature Gran % (Auto) 0.100 Neut % (Auto) 76.7 H Lymph % (Auto) 12.1 L [place] % (Auto) 6.3 Eos % (Auto) 4.3 Baso % (Auto) 0.5 Absolute Neuts (auto) 5.9 Absolute Lymphs (auto) 0.94 Nucleated RBC % 0 Sodium 139 Potassium 4.5 Chloride 109 H Carbon Dioxide 26.0 Anion Gap 4 L BUN 22 H Creatinine 2.10 H Estim Creat Clear Calc 43.87 Est GFR (MDRD) Af Amer 40 L Est GFR (MDRD) Non-Af 33 L BUN/Creatinine Ratio 10.5 Glucose 107 H Calcium 9.0 Urine Color Yellow Urine Clarity Clear Urine pH 5.0 Ur Specific [place] 1.020 Urine Protein Negative Urine Glucose (UA) Normal Urine Ketones Negative Urine Occult Blood Negative Urine Nitrite Negative Urine Bilirubin Negative Urine Urobilinogen Normal Ur Leukocyte Esterase Negative Urine RBC 0 SEEN Urine WBC 0 SEEN Ur Squamous Epith Cells 0 SEEN Urine Bacteria 0 SEEN Urine Mucus 0 SEEN Management Discussion w/another healthcare provider: [employer] Supervisor (Dr. Weeks) Treatment and Re-Evaluation :: Patient was given IV fluids, morphine, and Zofran. Patient states morphine improved his pain but still is present. Patient was given a repeat dose of morphine. Patient was advised of his findings. With the increase of his creatinine and having a 6 mm proximal stone, I recommended admission to the hospital. Patient states he would prefer to stay here at [facility]. Case was discussed with Dr. Weeks. He will admit the patient for observation. Patient and family understood and were agreeable with the plan. All questions were answered. Discharge Plan Triage Chief Complaint: Abd Pain ED Provider: Heron Rodriguez Dx/Rx/DC Orders Clinical Impression: Acute left flank pain, Ureterolithiasis Prescriptions: No Action levothyroxine 137 mcg tablet 137 mcg PO MOTUWETHFRSA gabapentin 300 mg capsule 300 mg PO QHS lisinopril 5 mg tablet 5 mg PO DAILY rosuvastatin 20 mg tablet 20 mg PO QHS tamsulosin [Flomax] 0.4 mg capsule 0.4 mg PO DAILY PRN (Reason: urination) allopurinol 300 mg tablet 300 mg PO DAILY hydrocodone-acetaminophen 5-325 mg tablet 1 tab PO Q6H PRN PRN (Reason: Pain) 3 Days Qty: 10 0RF ibuprofen 400 mg tablet 400 mg PO Q8H PRN (Reason: pain) Qty: 14 0RF ondansetron 4 mg tablet,disintegrating 4 mg PO Q8H PRN PRN (Reason: Nausea) Qty: 10 0RF Primary Care Provider: Anthony Solano Referrals: Anthony Solano MD [Primary Care Provider] - Disposition Disposition: Acute Care Hospital [facility]
[2023-10-15] VITALS (9 sets, daily range): BP systolic 109–163; BP diastolic 63–86; PULSE 60–72; RESP 15–18; TEMP 36.6–36.9; O2SAT 94–99; BMI 38.2
[2023-10-15] MEDS: Ondansetron 4 MG/2 ML Vial IV ×4 (00:46→18:51)
[2023-10-15] MEDS: Morphine 4 MG/ML Syringe IV ×2 (00:46→04:04)
[2023-10-15] MEDS: 0.9% Normal Saline (1000mL) 1,000 ML 1000 ML IV (00:47)
[2023-10-15 00:52] LABS: Absolute Lymphocyte Count 0.94 X10^3/uL (0.83-4.51); Absolute Neutrophil Count 5.9 X10^3/uL (2.0-7.7); Basophil# 0.04 X10^3/uL; Basophil% 0.5 % (0-1); Eosinophil# 0.33 X10^3/uL; Eosinophils% 4.3 % (0-5); Hematocrit 35.2 % (40-54); Hemoglobin 11.5 g/dL (13.0-16.5); Lymphocyte # 0.94 X10^3/ul (0.83-4.51); Lymphocyte % 12.1 % (19-41); Mean Corp Hgb Conc 32.7 g/dL (32-36); Mean Corpuscular Hgb 29.3 pg (27.0-32.0); Mean Corpuscular Volume 89.8 fL (80-94); Mean Platelet Vol. 10.1 fl (6.2-12.0); Monocyte# 0.49 X10^3/uL; Monocyte% 6.3 % (0-10); NRBC Flagged by Analyzer 0 % (0-5); Neutrophil # 5.94 X10^3/uL (2.7-7.7); Neutrophil % 76.7 % (47-70); Platelet Count 199 K/mm3 (150-450); RBC Distribution Width CV 13.8 % (11.6-14.6); RBC Distribution Width SD 45.6 fl (35.1-43.9); Red Blood Count 3.92 M/mm3 (4.6-6.2); White Blood Count 7.8 K/mm3 (4.4-11.0)
[2023-10-15 01:05] LABS: Anion Gap 4 (5-15); BUN 22 mg/dL (7-18); BUN/Creat Ratio 10.5 RATIO (10-20); Chloride 109 mmol/L (98-107); EST Glomerular Filtration Rate 33 mL/min (>60); Est Glom Filt Rate - Afr Amer 40 mL/min (>60); Estimated Creatinine Clearance 43.87 ml/min; Glucose 107 mg/dL (74-106); Potassium 4.5 mmol/L (3.5-5.1); Sodium Level 139 mmol/L (136-145)
[2023-10-15 01:54] LABS: Bacteria 0 SEEN /hpf (None Seen); Mucous, Urine 0 SEEN /hpf (<or=2+); Red Blood Cells-Urine 0 SEEN /hpf (0-5); Squamous Epithelial Cells - UA 0 SEEN /hpf (0-5); White Blood Cells 0 SEEN /hpf (0-5)
[2023-10-15 01:59] LABS: Color, Urine Yellow (Yellow); Glucose, Dipstick Normal (Normal); Ketone-Dipstick Negative (Negative); Leukocyte Esterase-Dipstick Negative /ul (Negative); Nitrite-Dipstick Negative (Negative); Occult Blood-Urine Negative /ul (Negative); Protein-Dipstick Negative (Negative); Urine Bilirubin Dipstick Negative (Negative); Urine Clarity Clear (Clear); Urine Urobilinogen Normal (Normal)
[2023-10-15] MEDS: Morphine 2 MG/ML Syringe IV ×7 (06:23→23:23)
[2023-10-15] MEDS: 0.9% Saline Lock 10 ML Syringe IV ×2 (06:23→10:56)
[2023-10-15] MEDS: 0.9% Normal Saline (1000mL) 1,000 ML 75 ML IV ×2 (06:39→18:47)
[2023-10-15] MEDS: Tamsulosin HCl 0.4 MG Capsule PO ×2 (14:22→21:18)
--- NOTE | 2023-10-15 17:16 | PCM.HP.STD ---
HPI - General General Date of Admission: 10/14/23 Date of Service: 10/14/23 Chief Complaint: Left proximal ureteral calculi HPI Narrative LYNN SCHREIBER, is a 68 M who presents to the hospital and severe left renal flank pain he was admitted for severe pain in the left side. CT scan reviewed he has got about 6 to 5 mm stone in the proximal left ureter. Will put on Flomax hydration strain all urine this evening and passed a stone by otherwise if he cannot plan for intervention tomorrow with cystoscopy left ureteroscopy laser lithotripsy of stone and stent placement [facility] Medical History Basal cell carcinoma Gout HTN (hypertension) Hyperlipidemia Kidney stone Pyelonephritis Restless leg syndrome Thyroid cancer Vertigo Home Medications allopurinol 300 mg tablet 300 mg PO DAILY 10/14/23 [History Last Taken Unknown] gabapentin 300 mg capsule 300 mg PO QHS 10/14/23 [History Last Taken Unknown] hydrocodone-acetaminophen 5-325mg 5mg-325mg 1 tab PO Q6H PRN PRN Pain 3 days #10 TABLETS 10/14/23 [Rx Last Taken Unknown] ibuprofen 400 mg tablet 400 mg PO Q8H PRN pain #14 tabs 10/14/23 [Rx Last Taken Unknown] levothyroxine 137 mcg tablet 137 mcg PO MOTUWETHFRSA 10/14/23 [History Last Taken Unknown] lisinopril 5 mg tablet 5 mg PO DAILY 10/14/23 [History Last Taken Unknown] ondansetron 4 mg disintegrating tablet 4 mg PO Q8H PRN PRN Nausea #10 tabs 10/14/23 [Rx Last Taken Unknown] rosuvastatin 20 mg tablet 20 mg PO QHS 10/14/23 [History Last Taken Unknown] tamsulosin 0.4 mg capsule (Flomax) 0.4 mg PO DAILY PRN urination 10/14/23 [History Last Taken Unknown] Allergy/AdvReac Type Severity Reaction Status Date / Time No Known Allergies Allergy Verified 10/14/23 22:42 Surgical History History of thyroid surgery Social History Smoking Status: Never smoker ROS Constitutional Constitutional: Denies chills, fever(s) or malaise Eyes Eyes: Denies blurry vision or change in vision ENT HEENT: Reports none Cardiovascular Cardiovascular: Denies chest pain or palpitations Respiratory/Chest Respiratory/Chest: Denies cough or shortness of breath with exertion Gastrointestinal Gastrointestinal: Denies abdominal pain, constipation or diarrhea Musculoskeletal Musculoskeletal: Denies back pain, joint stiffness or joint swelling Integumentary Integumentary: Denies dry skin, jaundice, lesions or rash Neurologic Neurologic: Denies confusion, syncope or weakness Psychiatric Psychiatric: Reports none; Denies anxiety or depression Endocrine Endocrinology: Denies excessive sweating, fatigue or flushing Hematologic/Lymphatic Hematologic/Lymphatic: Denies anemia, easy bleeding or easy bruising Vital Signs Vital Signs Vital Signs: 10/14/23 22:41 10/15/23 00:41 10/15/23 02:00 Temperature 97.6 F L Temperature Source Temporal Pulse Rate 72 60 66 Respiratory Rate 17 18 16 Respiratory Effort Respiratory Depth Respiratory Pattern Blood Pressure 161/101 H 109/63 148/86 H Blood Pressure Mean 121 78 106 Blood Pressure Source Blood Pressure Position Blood Pressure Location Pulse Ox 98 97 95 Oxygen Delivery Method Room Air Room Air Room Air 10/15/23 04:00 10/15/23 05:12 10/15/23 06:00 Temperature 98.4 F 98.3 F Temperature Source Oral Pulse Rate 64 61 60 Respiratory Rate 16 16 18 Respiratory Effort Respiratory Depth Respiratory Pattern Blood Pressure 163/84 H 139/80 H 132/67 H Blood Pressure Mean 110 99 88 Blood Pressure Source Monitor Blood Pressure Position Semi-Fowlers Blood Pressure Location Right Arm Pulse Ox 99 96 98 Oxygen Delivery Method Room Air Room Air 10/15/23 05:47 10/15/23 07:54 10/15/23 14:38 Temperature 97.9 F 98.1 F Temperature Source Oral Oral Pulse Rate 62 72 Respiratory Rate 15 16 18 Respiratory Effort Normal Non-Labored Respiratory Depth Normal Respiratory Pattern Normal Blood Pressure 125/71 H 151/84 H Blood Pressure Mean 89 106 Blood Pressure Source Monitor Monitor Blood Pressure Position Supine Semi-Fowlers Blood Pressure Location Right Arm Right Arm Pulse Ox 98 94 Oxygen Delivery Method Room Air Room Air Room Air Weight Weight: 124.285 kg Body Mass Index (BMI) 38.2 Physical Exam Const alert and oriented x3 General Appearance: cooperative HEENT normocephalic, head/scalp atraumatic, EAC's normal and TM's normal bilaterally Eyes PERRL and EOMs intact bilaterally Pupil: sluggish Neck no lymphadenopathy, supple and no JVD General: trachea midline Lymph Lymphatic: no lymphadenopathy noted, lymphedema and lymphadenopathy Resp normal respiratory effort, normal air movement and clear to auscultation bilaterally Cardio regular rate, regular rhythm and peripheral pulses 2+ throughout GI soft to palpation, non-tender and non-distended Extremity normal capillary refill and no clubbing, cyanosis or edema General Extremity: no tenderness to palpation of joints or extremities Skin no rashes or lesions noted General Skin Exam: turgor normal Lesions: no lesions Rashes: no rashes Neuro CN's II-XII intact bilaterally Speech: speech normal Motor Exam: strength 5/5 throughout; Negative for general weakness Psych thought process normal, cooperative and affect normal Appearance: appropriate Results Medical Records Data Attestation: I reviewed the patient's medical records Lab / Micro Data 10/15/23 00:40 10/15/23 00:40 Labs: Laboratory Results - last 24 hr 10/15/23 00:40: WBC 7.8, RBC 3.92 L, Hgb 11.5 L, Hct 35.2 L, MCV 89.8, MCH 29.3, MCHC 32.7, RDW Std Deviation 45.6 H, RDW Coeff of Yoselyn 13.8, Plt Count 199, MPV 10.1, Immature Gran % (Auto) 0.100, Neut % (Auto) 76.7 H, Lymph % (Auto) 12.1 L, [place] % (Auto) 6.3, Eos % (Auto) 4.3, Baso % (Auto) 0.5, Absolute Neuts (auto) 5.9, Absolute Lymphs (auto) 0.94, Nucleated RBC % 0, Sodium 139, Potassium 4.5, Chloride 109 H, Carbon Dioxide 26.0, Anion Gap 4 L, BUN 22 H, Creatinine 2.10 H, Estim Creat Clear Calc 43.87, Est GFR (MDRD) Af Amer 40 L, Est GFR (MDRD) Non-Af 33 L, BUN/Creatinine Ratio 10.5, Glucose 107 H, Calcium 9.0 10/15/23 01:45: Urine Color Yellow, Urine Clarity Clear, Urine pH 5.0, Ur Specific [place] 1.020, Urine Protein Negative, Urine Glucose (UA) Normal, Urine Ketones Negative, Urine Occult Blood Negative, Urine Nitrite Negative, Urine Bilirubin Negative, Urine Urobilinogen Normal, Ur Leukocyte Esterase Negative, Urine RBC 0 SEEN, Urine WBC 0 SEEN, Ur Squamous Epith Cells 0 SEEN, Urine Bacteria 0 SEEN, Urine Mucus [address] scan reviewed shows stone in the proximal left ureter Assessment & Plan Assessment/Plan (1) Acute left flank pain: (2) Ureterolithiasis: PLAN: Plan for cystoscopy left ureteroscopy laser lithotripsy of stone and stent placement
--- NOTE | 2023-10-15 17:21 | DCINST_ITS ---
Discharge Instructions Diet Discharge Diet: No restrictions Activity Discharge Activity: Return to Normal Activity and May Not Drive (while taking narcotic pain medications.) Dressing / Incision Call your doctor if you observe: Fever of 101 or Higher Follow Up Care Please Follow Up With: David Weeks MD When: Call [phone] for an appointment. Test Results: Test results from this visit will be discussed in further detail at your follow- up appointment, if applicable. Discharge Plan Admission Admit Date/Time: 10/15/23 05:56 Primary Reason for Your Visit: Kidney stone Attending Provider: David Weeks Primary Care Provider: Anthony Solano Discharge Orders/Prescriptions Prescriptions: New ciprofloxacin HCl [Cipro] 500 mg tablet 500 mg PO BID Qty: 10 0RF Continued levothyroxine 137 mcg tablet 137 mcg PO MOTUWETHFRSA gabapentin 300 mg capsule 300 mg PO QHS lisinopril 5 mg tablet 5 mg PO DAILY rosuvastatin 20 mg tablet 20 mg PO QHS tamsulosin [Flomax] 0.4 mg capsule 0.4 mg PO DAILY PRN (Reason: urination) allopurinol 300 mg tablet 300 mg PO DAILY hydrocodone-acetaminophen 5-325 mg tablet 1 tab PO Q6H PRN PRN (Reason: Pain) 3 Days Qty: 10 0RF ibuprofen 400 mg tablet 400 mg PO Q8H PRN (Reason: pain) Qty: 14 0RF ondansetron 4 mg tablet,disintegrating 4 mg PO Q8H PRN PRN (Reason: Nausea) Qty: 10 0RF Referrals / Follow Up: David Weeks MD [Med Staff - Active Staff] - Anthony Solano MD [Primary Care Provider] - Disposition Disposition (needs filled in before D/C Order can be placed): Home, Self Care
[2023-10-15] MEDS: Gabapentin 300 MG Capsule PO (21:18)
[2023-10-15] MEDS: Atorvastatin Calcium 40 MG Tablet PO (21:18)
[2023-10-16] VITALS (11 sets, daily range): BP systolic 130–159; BP diastolic 69–88; PULSE 61–81; RESP 14–67; TEMP 36.7–37.2; O2SAT 92–100; BMI 38.2
[2023-10-16] MEDS: Morphine 2 MG/ML Syringe IV ×3 (02:08→08:31)
[2023-10-16] MEDS: Ondansetron 4 MG/2 ML Vial IV (02:56)
[2023-10-16 08:06] LABS: Hematocrit 34.2 % (40-54); Mean Corp Hgb Conc 32.2 g/dL (32-36); Mean Corpuscular Hgb 28.9 pg (27.0-32.0); Mean Corpuscular Volume 89.8 fL (80-94); Mean Platelet Vol. 10.5 fl (6.2-12.0); Platelet Count 191 K/mm3 (150-450); RBC Distribution Width CV 13.6 % (11.6-14.6); RBC Distribution Width SD 44.4 fl (35.1-43.9); Red Blood Count 3.81 M/mm3 (4.6-6.2); White Blood Count 8.5 K/mm3 (4.4-11.0)
[2023-10-16] MEDS: Levothyroxine 137 MCG Tablet PO (08:27)
[2023-10-16] MEDS: 0.9% Saline Lock 10 ML Syringe IV (08:30)
[2023-10-16] MEDS: 0.9% Normal Saline (1000mL) 1,000 ML 75 ML IV (08:30)
[2023-10-16 08:40] LABS: Anion Gap 5 (5-15); BUN 18 mg/dL (7-18); BUN/Creat Ratio 7.7 RATIO (10-20); Calcium,Total 9.1 mg/dL (8.5-10.1); Chloride 108 mmol/L (98-107); Creatinine, Serum 2.33 mg/dL (0.70-1.30); EST Glomerular Filtration Rate 30 mL/min (>60); Est Glom Filt Rate - Afr Amer 36 mL/min (>60); Glucose 116 mg/dL (74-106); Potassium 4.1 mmol/L (3.5-5.1); Sodium Level 138 mmol/L (136-145); Thyroid Stim Hormone (TSH) 0.42 uIU/mL (0.358-3.74)
[2023-10-16] MEDS: Lactated Ringers 1,000 ML 15 ML IV (11:06)
--- NOTE | 2023-10-16 12:32 | OP.PCM_ITS ---
Report of Operation Date of Procedure: 10/16/23 Pre-Operative Diagnosis: Left obstructing renal calculi Post-Operative Diagnosis: The same Surgery/Procedure Performed:: Cystoscopy, balloon dilation of the left ureter, left ureteroscopy laser lithotripsy of stone, left retrograde pyelogram and left stent placement Description of Surgical Findings:: This is a patient who presents to the hospital for treatment for an obstructing ureter calculi. I discussed with the patient how the surgery would be performed and we reviewed the risks and benefits of the surgery. The risk and benefits include the risk of failure to remove the stone completely and that the patient may need multiple procedures. We discussed the risk of an infection, the risk of bleeding. We discussed the very rare risk of serious complicated injury to the ureter. The patient understands that if the stone is not able to be removed safely that we may abort the procedure and place a stent. After full discussion and all questions address with the patient the consent form was signed the side was marked appropriately and the patient was taken back to the operating room for the procedure. The patient was taken back to the operating room. After induction of anesthesia by the anesthesiology team the patient was placed in dorsolithotomy position. The genitals were prepped and draped in usual sterile fashion. I went into the bladder with a 21 Serbian rigid cystourethroscope through the urethra. Upon entering the bladder I inspected the trigone the left and right ureteral orifice and the bladder itself. I then cannulated the Left ureteral orifice and advan tiara a 0.038 Glidewire up into the kidney. Then over the Glidewire I advanced a 5 Fr Ureteral catheter and performed a retrograde pyelogram with about 10cc of contrast, to delineate the anatomy and identify the stone location. Then a ureteral balloon dilator was advanced over the wire and the distal ureter was balloon dilated with a 12 Fr x 5cm balloon dilator. After 3 minutes of dilating the ureter the balloon was backloaded off the 0.038 glidewire over the 0.038 guidewire I went in with the flexible 7.5fr ureteroscope. I was able to go inside with the 7.5Fr utereroscope and I pulled out the guidewire and then through the ureteroscope I engage the stone with laser lithotripsy using a 270miron laser fiber with energy setting of 6 Hertz and 0.6 J until the stone was lasered into tiny little pieces that should pass on their own. A retrograde pyelogram was performed with 10cc of contrast and no extravasation of contrast or perforation was identified in the ureter there was some mild irritation of the ureter where the stone was located. I then backed out of the ureter left the wire in place and then over the 0.038 guidewire I placed a double coiled pigtail ureteral stent. The ureteral stent was advanced over the 0.038 guidewire under direct fluoroscopic guidance and direct cystoscopic visual guidance, once the stent was in good position I pulled the wire and the stent coiled in the kidney and bladder in good position. I then drained the patient's bladder and the cystoscope was removed and the patient was taken back to the recovery room in good position. The patient was given discharge instructions to call the office for instructions on when to come to the office to have the stent removed. Surgeon: David Weeks Drains: stent Admit VTE Documentation VTE Present on Admission: No VTE Mechan Device Prophylaxis: SCD's
--- NOTE | 2023-10-16 13:54 | CASEMGMT ---
RN CM into pt room, pt lyin in bed in no distress. Nurse at bedside, pt agreeable to discuss DC plan. Pt stated he is independent and does not use any assisted devices at home. No concerns to go home at this time.
--- NOTE | 2023-10-16 14:45 | PHA.DC.MC.R ---
Pharmacy [facility] has performed discharge medication reconciliation and counseling for this patient. 1. CIPROFLOXACIN 500MG PO BID X 5 DAYS The patient's discharge medication list was reviewed for discrepancies and discrepancies were resolved. The patient was counseled on the following discharge medications and changes in medications for homegoing were reviewed. The Reason for Use, instructions for use, and potential side effects were reviewed for all new medications. The patient's questions regarding all of their medications were answered. The patient was able to verbally demonstrate an understanding of their discharge medications. Medications at Discharge Home Medications allopurinol 300 mg tablet 300 mg PO DAILY 10/14/23 gabapentin 300 mg capsule 300 mg PO QHS 10/14/23 hydrocodone-acetaminophen 5-325mg 5mg-325mg 1 tab PO Q6H PRN PRN Pain 3 days #10 TABLETS 10/14/23 ibuprofen 400 mg tablet 400 mg PO Q8H PRN pain #14 tabs 10/14/23 levothyroxine 137 mcg tablet 137 mcg PO MOTUWETHFRSA 10/14/23 lisinopril 5 mg tablet 5 mg PO DAILY 10/14/23 ondansetron 4 mg disintegrating tablet 4 mg PO Q8H PRN PRN Nausea #10 tabs 10/14/23 rosuvastatin 20 mg tablet 20 mg PO QHS 10/14/23 tamsulosin 0.4 mg capsule (Flomax) 0.4 mg PO DAILY PRN urination 10/14/23 ciprofloxacin HCl 500 mg tablet (Cipro) 500 mg PO BID #10 tabs 10/15/23
--- NOTE | 2023-10-16 15:52 | CASEMGMT ---
Met with?patient and his to complete RETANA form. RETANA form explained to both?who voiced understanding and per patients request (he was eating), his signed form. Original form placed in pt?s chart and copy provided to?patient. Anisha Marcelo, Discharge Planning Asst
== END 2023-10-16 16:47 | disposition home or self-care (01) ==
LOC: ED 10-15 04:34 → MS3 10-15 05:59
PROVIDERS: Anesthesiology; Admitting Provider Internal Medicine; Emergency Provider Emergency Medicine; PCP Family Medicine; Visit Provider Urology
PROC: 0TJ98ZZ Inspection of Ureter, Via Natural or Artificial Opening Endoscopic (ICD-10-PCS; CPT 52352; principal; 2023-10-16 11:50)
DX: N20.2 Calculus of kidney with calculus of ureter (principal); C73 Malignant neoplasm of thyroid gland; E78.5 Hyperlipidemia, unspecified; M10.9 Gout, unspecified; I10 Essential (primary) hypertension; R39.15 Urgency of urination; Z79.899 Other long term (current) drug therapy; Z79.890 Hormone replacement therapy
CPT/HCPCS: 52356; 52344; 00918; 36415; 76000; 80048; 81001; 84443; 85025; 85027; 93005; 96361; 96374; 96375; 96376; 99221; 99284; J7030; J7120; A4216; C1769; C2617; G0378; J2405

== ENCOUNTER 2024-06-05 13:16 | Emergency (ER) | payer MEDICARE, OTHER, SELFPAY ==
[2024-06-05 13:16] VITALS: BP 154/73; PULSE 59; RESP 16; TEMP 36.3; O2SAT 97; BMI 38.5
--- NOTE | 2024-06-05 14:24 | EX.ED.DYSGE1 ---
HPI History of Present Illness Chief Complaint: Foreign Body Informant: patient, parent and EMS Narrative Narrative: 68-year-old male states that he was eating broccoli when a piece got stuck in his esophagus. He felt chest tightness and was coughing. On the way the hospital he was able to start expectorating the food and after drinking to cope feel significantly better. He has not had this problem in the past. He denies any significant reflux symptoms. [facility] Medical History Kidney stone Basal cell carcinoma Restless leg syndrome Gout Thyroid cancer Hyperlipidemia HTN (hypertension) Pyelonephritis Vertigo Home Medications ?Medication ?Instructions ?Recorded ?Last Taken ?Type allopurinol 300 mg tablet 300 mg PO DAILY 10/14/23 Unknown History gabapentin 300 mg capsule 300 mg PO QHS 10/14/23 Unknown History ibuprofen 400 mg tablet 400 mg PO Q8H PRN pain #14 tabs 10/14/23 Unknown Rx levothyroxine 137 mcg tablet 137 mcg PO MOTUWETHFRSA 10/14/23 Unknown History lisinopril 5 mg tablet 5 mg PO DAILY 10/14/23 Unknown History rosuvastatin 20 mg tablet 20 mg PO QHS 10/14/23 Unknown History tamsulosin 0.4 mg capsule (Flomax) 0.4 mg PO DAILY PRN urination 10/14/23 Unknown History Allergy/AdvReac Type Severity Reaction Status Date / Time No Known Allergies Allergy Verified 06/05/24 13:21 Surgical History History of thyroid surgery Social History Smoking Status: Never smoker ROS ROS ED Constitutional Constitutional ED: Denies chills or weight loss Eyes Eyes: Denies change in vision or diplopia ENT ENT ED: Denies ear pain, rhinorrhea or sore throat Cardiovascular Cardiovascular: Reports chest pain; Denies orthopnea, palpitations or racing heartbeat Respiratory/Chest Respiratory/Chest: Reports cough; Denies dyspnea or orthopnea Gastrointestinal Gastrointestinal: Denies abdominal pain, diarrhea, nausea or vomiting Genitourinary Genitourinary ED: Denies dysuria, hematuria or urinary frequency Musculoskeletal Musculoskeletal: Denies arthralgias or myalgias Integumentary Denies abscess or rash Neurologic Neurologic: Denies headache(s) or weakness Psychiatric Psychiatric: Denies anxiety, depression, suicidal ideation or suicidal thoughts Endocrine Endocrinology: Denies polydipsia, polyphagia or polyuria Allergic/Immunologic Allergic/Immunologic ED: Denies mouth swelling, tongue swelling or urticaria EXAM Physical Exam Const Vital Signs: 06/05/24 13:16 06/05/24 13:42 Temperature 97.4 F L Temperature Source Oral Pulse Rate 59 L Respiratory Rate 16 Respiratory Effort Normal Respiratory Pattern Normal Blood Pressure 154/73 H Blood Pressure Mean 100 Pulse Ox 97 Oxygen Delivery Method Room Air Positive well nourished and well developed General Appearance ED: well developed HEENT Reports normocephalic, head/scalp atraumatic and moist mucous membranes Eyes PERRL and EOMs intact bilaterally Neck no lymphadenopathy, supple and no JVD Resp normal respiratory effort and clear to auscultation bilaterally Cardio regular rate, regular rhythm and no murmurs GI normal to inspection, nondistended, normoactive bowel sounds and non-tender Palpation: soft Back/Spine no CVA tenderness and normal ROM Extremity normal to inspection General Extremety ED: Negative for edema General Extremity: Negative for edema Neuro oriented x3 and CN's II-XII intact bilaterally Sensorium / Orientation: alert Motor Exam: strength 5/5 throughout Psych mental status grossly normal Mood & Affect: Negative for depressed or tearful Skin no rashes or lesions noted and no wounds MDM MDM MDM Narrative Medical decision making narrative: Differential diagnosis includes but not limited to acute coronary syndrome esophageal foreign body esophageal perforation gastritis esophageal stricture Patient feels otherwise back to baseline. That had this problem before. We talked about follow-up. We talked about returning with worsening symptoms. She was straightforwardly today and drink plenty of fluids were ordered History & Record Review Discussion w/independent historian: EMS personnel, Patient and Significant other Discharge Plan Triage Chief Complaint: Foreign Body ED Provider: Vinicio Gong Dx/Rx/DC Orders Clinical Impression: Esophageal foreign body Instructions: ED Esophageal Foreign Body, Resolved Prescriptions: No Action levothyroxine 137 mcg tablet 137 mcg PO MOTUWETHFRSA gabapentin 300 mg capsule 300 mg PO QHS lisinopril 5 mg tablet 5 mg PO DAILY rosuvastatin 20 mg tablet 20 mg PO QHS tamsulosin [Flomax] 0.4 mg capsule 0.4 mg PO DAILY PRN (Reason: urination) allopurinol 300 mg tablet 300 mg PO DAILY ibuprofen 400 mg tablet 400 mg PO Q8H PRN (Reason: pain) Qty: 14 0RF Primary Care Provider: Anthony Solano Referrals: Anthony Solano MD [Primary Care Provider] - As Needed Activity Restrictions/Additional Instructions: Be sure to chew your food fully and drink plenty of fluids with it. Should you have a reoccurrence I would recommend an EGD to look for a stricture/narrowing of the esophagus. Print Language: Mosotho Disposition Disposition: Home, Self Care
[2024-06-05 14:31] VITALS: BP 115/78; PULSE 60; RESP 16; TEMP 36.3; O2SAT 97
== END 2024-06-05 14:31 | disposition home or self-care (01) ==
PROVIDERS: Emergency Provider Emergency Medicine; PCP Family Medicine; Visit Provider Emergency Medicine
DX: T18.108A Unspecified foreign body in esophagus causing other injury, initial encounter (principal); E78.5 Hyperlipidemia, unspecified; I10 Essential (primary) hypertension; Z85.850 Personal history of malignant neoplasm of thyroid
CPT/HCPCS: 99284

== ENCOUNTER 2025-01-25 10:53 | Emergency (ER) | payer MEDICARE, OTHER, SELFPAY ==
[2025-01-25] VITALS (9 sets, daily range): BP systolic 112–156; BP diastolic 53–96; PULSE 51–72; RESP 16; TEMP 36.9; O2SAT 94–97; BMI 36.3
[2025-01-25] MEDS: Lidocaine/Epi/Tetracaine 50 ML 1 APPLIC TOPICAL (11:31)
[2025-01-25] MEDS: Tetracaine 0.5% Ophthalmic Bottle 2 DRP RIGHT EYE (11:32)
[2025-01-25] MEDS: Lidocaine 1% /Epi 1:100 (20ml) 20 ML Vial INFILT (11:32)
--- OUTSIDE RECORDS SUMMARY | 2025-01-25 11:54 | XMS RPT_ITS | CCD ---
Author Organization [facility] Care Team Providers Care Home Appliance Tech Name Role Phone Bandar Graf PA-C Primary Care Provider [phone] Caroline El DO Unavailable Caroline El DO Unavailable Suppan 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, Zoraida A Primary Care Provi kaitlin Suppan 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, Zoraida A Primary Care Provi kaitlin Vinicio Gong Attending Unavailable Anthony Solano Primary Care Unavailable [place], Anthony Primary Care Unavailable Jessica Mendoza Attending Unavailable Shaun Lynch Admitting Unavailable David Weeks Attending Unavailable XiomaraAnthony rudd Primary Care Unavailable Shaun Lynch Referring Unavailable Alexi Oliva Attending Unavailable [place] Est[place] Primary Care Unavailable ZOHAIB GROVE Referring Unavailable SUPPAN, ZORAIDA A Primary Care Unavailable SUPPAN, ZORAIDA A Primary Care Unavailable ZOHAIB GROVE Attending Unavailable SUPPAN, ZORAIDA A Primary Care Unavailable SUPPAN, ZORAIDA A Attending Unavailable SUPPAN, ZORAIDA A Primary Care Unavailable CAROLINE EL Attending Unavailab le SUPPAN, ZORAIDA A Primary Care Unavailable ANTHONY LOREDO JR Attending Unavailable SUPPAN, ZORAIDA A Primary Care Unavailable ELENA SEPULVEDA Attending Unavailable LEONIDAS GRAF Primary Care Unavailable HARLAN PABON Attending Unavailable SUPPAN, ZORAIDA A Primary Care Unavailable HARLAN PABON Referring Unavailable SUPPAN, ZORAIDA A Primary Care Unavailable SUPPAN, ZORAIDA A Primary Care Unavailable SUPPAN, ZORAIDA A Attending Unavailable SUPPAN, ZORAIDA A Primary Care Unavailable AYAKA PETERS Attending Unavailable SUPPAN, ZORAIDA A Primary Care Unavailable CAROLINE EL Referring Unavailab LEONIDAS [place] Primary Care Unavailable ALDA SKY Attending Unavailable LEONIDAS GRAF Primary Care Unavailable LEONIDAS GRAF Referring Unavailable LEONIDAS GRAF Primary Care Unavailable Medications Current Medications Medication Drug Class(es) Dates Sig (Normalized) Sig (Original) allopurinol 300 mg oral tablet (20 sources) Xanthine Oxidase Inhibitor Start: 06-06-2023 End: 08-02-2024 take 1 tablet by mouth once daily allopurinol (ZYLOPRIM) 300 mg tablet Indications: Gout with manifestations Take 1 tablet by mouth once daily. 90 tablet 3 08/02/2024 Active Start: 01-24-2023 take 1 tablet by reese th once daily allopurinol (ZYLOPRIM) 300 mg tablet Indications: Gout with manifestations Take 1 tablet by mouth once daily. 90 tablet 3 01/24/2023 Active Start: 11-02-2022 take 1 tablet by reese th once daily allopurinol (ZYLOPRIM) 300 mg tablet Indications: Gout with manifestations Take 1 tablet by mouth once daily. 30 tablet 2 11/02/2022 Active Start: 05-03-2021 End: 10-30-2022 take 1 tablet by mouth once daily allopurinol (ZYLOPRIM) 300 mg tablet Indications: Gout with manifestations Take 1 tablet by mouth once daily. 30 tablet 2 08/01/2022 10/30/2022 Discontinued Comment on above: Take 1 tablet by reese th once daily. aminolevulinate 200 mg/ml topical solution (20 sources) Start: 01-11-2023 Aminolevulinic Acid HCl 20 % soln 2 Each Ascorbic Acid (20 sources) Vitamin C ascorbic acid (V THAD-C ORAL) Take by mouth once daily. Active ascorbic acid (V THAD-C ORAL) Take by mouth once daily. 0 Active ascorbic acid (V THAD-C ORAL) Take by mouth. 0 Active Comment on above: Take by mouth. Take by mouth once d aily. benzonatate 100 mg oral capsule (10 sources) Non-narcotic Antitussive Start: 4 End: 4 take 1 capsule by mouth every eight hours as needed for cough benzonatate (TESSALON PERLE) 100 mg capsule Indications: Acute cough Take 1 capsule by mouth every 8 hours as needed for cough for up to 15 days. 30 capsule 04/22/2024 05/07/2024 Active Start: 01-02-2024 End: 02-22-2024 take 2 capsules by mouth three times daily as needed benzonatate (TESSALON PERLE) 100 mg capsule Indications: Sinobronchitis Take 2 capsules by mouth three times a day as needed. 30 capsule 01/02/2024 02/22/2024 Discontinued Start: 10-04-2023 End: 10-19-2023 take 1 capsule by mouth every eight hours as needed for cough and cough benzonatate (TESSALON PERLE) 100 mg capsule Indications: Acute cough Take 1 capsule by mouth every 8 hours as needed for cough for up to 15 days. 30 capsule 0 10/04/2023 10/19/2023 Active calcipotriene 0.05 mg/ml topical solution (20 sources) Vitamin D Analog Start: 06-06-2023 Calcipotriene 0.005 % soln Apply to to scalp twice daily. 60 mL 3 06/06/2023 Active Start: 04-04-2022 Calcipotriene 0.005 % soln Apply to to scalp twice daily. 60 mL 3 04/04/2022 Active Comment on above: Apply to to scalp tw ice daily. cephalexin 500 mg oral capsule (4 sources) Cephalosporin Antibacterial Start: End: take 1 capsule by mouth twice daily cephALEXin (KEFLEX) 500 mg capsule Indications: Folliculitis Take 1 capsule by mouth two times a day for 5 days. 10 capsule 03/19/2024 03/24/2024 Active Start: 02-02-2024 End: 02-09-2024 take 1 capsule by mouth three times daily cephALEXin (KEFLEX) 500 mg capsule Indications: Folliculitis Take 1 capsule by mouth three times a day for 7 days. 21 capsule 02/02/2024 02/09/2024 cholecalciferol 0.05 mg oral capsule (20 sources) Vitamin D take 1 capsule by mouth once daily Cholecalciferol, Vitamin D3, 50 mcg (2,000 unit) cap Take 1 capsule by mouth once daily. Active Comment on above: Take 1 capsule by [facility] once daily. ciprofloxacin 500 mg oral tablet (1 source) Quinolone Antimicrobial Start: take 1 tablet by mouth twice daily Ciprofloxacin Hcl (Cipro) 500 mg tablet Active 500 MG PO TWICE A DAY October 15, 2023 12:00am clobetasol propionate 0.5 mg/ml topical solution (20 sources) Corticosteroid Start: End: Clobetasol Propionate (TEMOVATE) 0.05 % external solution Apply 1 application to affected area two times a day as needed. For the posterior scalp. 50 mL 2 05/16/2024 Active CPAP (20 sources) Start: CPAP Indications: Obstructive sleep apnea (adult) (pediatric) AutoPAP with humidification set at a range of 5-16 cmH2O. Lifetime supplies. Please fit with dreamwear under nose FFM. Please provide us download after 4 weeks of use. 1 Device 04/06/2020 Active Comment on above: AutoPAP with humidif ication set at a range of 5-16 cmH2O. Lifetime supplies. Please fit with dreamwear under nose FFM. Please provide us download after 4 weeks of use. doxycycline monohydrate 100 mg oral capsule (3 sources) Tetracycline-class Drug Start: End: take 1 capsule by mouth twice daily doxycycline monohydrate (MONODOX) 100 mg capsule Indications: Acute cough , Acute non-recurrent sinusitis, unspecified location Take 1 capsule by mouth two times a day for 5 days. 10 capsule 04/22/2024 04/27/2024 Active Start: 01-02-2024 End: 01-09-2024 take 1 tablet by mouth twice daily doxycycline (VIBRA-TABS) 100 mg tablet Indications: Sinobronchitis Take 1 tablet by mouth two times a day for 7 days. 14 tablet 0 01/02/2024 01/09/2024 Active fluticasone propionate 0.05 mg/actuat metered dose nasal spray (20 sources) Corticosteroid Start: 01-02-2024 take 2 spray(s) by mouth once daily fluticasone (FLONASE) 50 mcg/actuation nasal spray Indications: Sinobronchitis Use 2 Sprays in each nostril once daily. Rinse mouth after use. 1 Each 01/02/2024 Active gabapentin 300 mg oral capsule (20 sources) Anti-epileptic Agent Start: 06-26-2023 End: 06-12-2025 take 1 capsule by mouth in the evening, then take 2-3 capsules by mouth at bedtime gabapentin (NEURONTIN) 300 mg capsule Indications: Restless legs syndrome TAKE 1 CAPSULE BY MOUTH in evening THEN 2-3 CAPSULES AT bedtime. 360 capsule 1 07/01/2024 06/12/2025 Active Start: 10-04-2021 End: 03-14-2023 gabapentin (NEURONTIN) 300 m g capsule Indications: Restless legs syndrome TAKE 1 CAPSULE BY MOUTH AFTER ARRIVING HOME FROM WORK THEN 2 CAPSULES AT APPROXIMATELY 7 PM 270 capsule 1 12/12/2022 Active Start: 10-20-2020 gabapentin (NE URONTIN) 300 mg capsule Indications: Restless legs syndrome Take 1 to 3 capsules 1 hour before bedtime as directed. 270 capsule 1 10/20/2020 Active Comment on above: Take 1 to 3 capsules 1 hour before bedtime as directed. Take 1 capsules afte r arriving home from work and then 2 capsules at approximately 7 PM. TAKE 1 CAPSULE BY MO U[facility] AFTER ARRIVING HOME FROM WORK THEN 2 CAPSULES AT APPROXIMATELY 7 PM TAKE 1 CAPSULE BY MO UTH in evening THEN 2-3 CAPSULES AT bedtime. ibuprofen 400 mg oral tablet (8 sources) Nonsteroidal Anti-inflammatory Drug Start: 10-14-2023 take 400 mg by mouth every eight hours Ibuprofen Active 400 MG PO Q8H October 14, 2023 12:00am Start: 07-04-2014 End: 10-14-2023 take 1 tablet by mouth three times daily as needed Ibuprofen (Motrin) 800 MG tablet Discontinued 800 MG PO 3 TIMES DAILY NEEDED July 04, 2014 1:00am October 14, 2023 4:53am ipratropium bromide 0.021 mg/actuat metered dose nasal spray (20 sources) Anticholinergic Start: 06-06-2023 End: 05-16-2024 Ipratropium Breeding (ATROVENT) 21 mcg (0.03 %) nasal spray Use 2 Sprays in the nose every 12 hours. 3.5 mL 5 05/16/2024 Active Start: 11-25-2021 Ipratropium Br omide (ATROVENT) 21 mcg (0.03 %) nasal spray Use 2 Sprays in the nose every 12 hours. 3.5 mL 5 11/25/2021 Active Start: 06-19-2020 End: 11-25-2021 Ipratropium Breeding (ATROVEN T) 0.03 % nasal spray Use 2 Sprays in the nose every 12 hours. 1 Bottle 2 06/19/2020 11/25/2021 Discontinued Comment on above: Use 2 Sprays in the nose every 12 hours. ketoconazole 20 mg/ml medicated shampoo (20 sources) Azole Antifungal Start: 01-07-2025 ketoconazole (NIZORAL) 2 % shampoo Indications: Seborrheic dermatitis Apply to wet hair and let sit for 5-10 min before rinsing. Use 2-3 times weekly or as needed to control symptoms. 120 mL 5 01/07/2025 Active Start: 06-06-2023 End: 11-12-2024 ketoconazole (NIZORAL) 2 % s hampoo Apply to wet hair, lather for 5-10 minutes, and rinse thoroughly. Use 2-3 times weekly or as needed to control symptoms. 120 mL 5 07/22/2024 11/12/2024 Discontinued (Discontinued by Patient) Start: 04-04-2022 ketoconazole ( NIZORAL) 2 % shampoo Apply to wet hair, lather, and rinse thoroughly. Use 2-3 times weekly or as needed to control symptoms. 120 mL 5 04/04/2022 Active Comment on above: Apply to wet hair, l ather, and rinse thoroughly. Use 2-3 times weekly or as needed to control symptoms. Apply to wet hair, l ather for 5-10 minutes, and rinse thoroughly. Use 2-3 times weekly or as needed to control symptoms. levothyroxine sodium 0.137 mg oral tablet (20 sources) l-Thyroxine Start: 06-06-19 24 End: 05-11-20 25 take 1 tablet by mouth once daily levothyroxine (SYNTHROID) 137 mcg tablet Indications: Post-surgical hypothyroidism , Hurthle cell carcinoma of thyroid (HCC) , Obesity, Class II, BMI 35-39.9 Take 1 tablet by mouth once daily. Except none on sundays 90 tablet 11/12/2024 05/11/2025 Active Start: 07-01-2021 End: 07-06-2022 take 1 tablet by mouth once daily levothyroxine (SYNTHROID) 137 mcg tablet Indications: Post-surgical hypothyroidism , Hurthle cell carcinoma of thyroid (HCC) , Obesity, Class II, BMI 35-39.9 Take 1 tablet by mouth once daily. Except none on sundays 90 tablet 4 07/06/2022 Active Comment on above: Take 1 tablet by reese th once daily. Except none on sundays lisinopril 5 mg oral tablet (20 sources) Angiotensin Converting Enzyme Inhibitor Start: 06-06-2023 End: 06-06-2024 take 1 tablet by mouth once daily lisinopril (ZESTRIL) 5 mg tablet Take 1 tablet by mouth once daily. 90 tablet 3 06/06/2024 Active Start: 07-06-2021 End: 09-14-2022 take 1 tablet by mouth once daily lisinopril (ZESTRIL) 5 mg tablet Indications: Essential hypertension Take 1 tablet by mouth once daily. 90 tablet 3 09/14/2022 Active Comment on above: Take 1 tablet by reese th once daily. omega 7-sfd-axi-fish oil (FISH OIL) 100-160-1,000 mg cap (20 sources) omega 3-dha-epa- fish oil (FISH OIL) 100-160-1,000 mg cap Take by mouth once daily. Active omega 3-dha-epa- fish oil (FISH OIL) 100-160-1,000 mg cap Take by mouth once daily. 0 Active omega 3-dha-epa- fish oil (FISH OIL) 100-160-1,000 mg cap Take by mouth. 0 Active Comment on above: Take by mouth. Take by mouth once d aily. ondansetron 4 mg disintegrating oral tablet (8 sources) Serotonin-3 Receptor Antagonist Start: 06-27-19 24 End: 10-14-19 24 take 4 mg by mouth every eight hours as needed Ondansetron Active 4 MG PO EVERY 8 HOURS NEEDED October 14, 2023 12:00am roflumilast (ZORYVE) 0.3 % foam (2 sources) Start: 01-08-20 25 roflumilast (ZORYVE) 0.3 % foam Indications: Seborrheic dermatitis Apply to affected area once daily. 60 g 3 01/07/2025 Active rosuvastatin calcium 20 mg oral tablet (20 sources) HMG-CoA Reductase Inhibitor Start: 09-15-19 End: 06-06-19 take 1 tablet by mouth once daily at bedtime rosuvastatin (CRESTOR) 20 mg tablet Take 1 tablet by mouth daily at bedtime. 90 tablet 3 06/06/2024 06/06/2025 Active Comment on above: Take 1 tablet by reese th daily at bedtime. Completed/Discontinued Medications Medication Drug Class(es) Dates Sig (Normalized) Sig (Original) acetaminophen 325 mg / HYDROcodone bitartrate 5 mg oral tablet (13 sources) Opioid Agonist Start: 06-27-2023 End: 10-14-2023 take 1 tablet by mouth every four hours as needed Hydrocodone-Acetami nophen Discontinued 1 TABLET PO EVERY 4 HOURS NEEDED 10 June 27, 2023 October 14, 2023 4:53am Start: 07-04-2014 End: 10-14-2023 take 1 tablet by mouth every six hours as needed Hydrocodone-Acetaminophen Active 1 TABLE T PO EVERY 6 HOURS NEEDED 10 3 October 14, 2023 betamethasone 0.5 mg/ml / clotrimazole 10 mg/ml topical lotion (2 sources) Azole Antifungal, Corticosteroid Start: 03-19-2024 End: 04-18-2024 clotrimazole-betamethasone (LOTRISONE) lotion Indications: Folliculitis Apply to affected area two times a day. 60 mL 2 03/19/2024 03/21/2024 Discontinued (Discontinued by Patient) cyclobenzaprine hydrochloride 10 mg oral tablet (5 sources) Muscle Relaxant Start: 07-04-2014 End: 10-14-2023 take 10 mg by mouth three times daily Cyclobenzaprine Discontinued 10 MG PO THREE TIMES A DAY July 04, 2014 1:00am October 14, 2023 4:53am fluocinolone acetonide 0.1 mg/ml topical oil (20 sources) Corticosteroid Start: 04-07-2022 End: 12-25-2023 Fluocinolone-Shower Cap 0.01 % oil Apply to affected area of scalp nightly and wash out in the morning. 118.28 mL 5 04/07/2022 12/25/2023 Discontinued Comment on above: Apply to affected ar ea of scalp nightly and wash out in the morning. fluocinonide 0.5 mg/ml topical solution (7 sources) Corticosteroid Start: 08-02-2021 fluocinonide (LIDEX) 0.05 % external solution Indications: Scalp psoriasis Apply 1 application to affected area twice daily. 60 mL 1 08/02/2021 Active Comment on above: Apply 1 application to affected area twice daily. 3 ml sodium hyaluronate 10 mg/ml prefilled syringe (2 sources) Start: 10-04-2024 End: 10-04-2024 hyaluronate sod, cross-linke d 30 mg injection (GEL-ONE) Start: 10-04-2024 End: 10-04-2024 30 mg, Injection - FOR ORTHO USE ONLY, ONCE, 1 dose, Starting on Mon10/04/24 at 1354, Until Mon10/04/24 at 1354 10 ml lidocaine hydrochloride 10 mg/ml injection (2 sources) Antiarrhythmic, Amide Local Anesthetic Start: 10-04-2024 End: 10-04-2024 lidocaine (PF) 10 mg/mL (1 %) 2 mL injection (XYLOCAINE) Start: 10-04-2024 End: 10-04-2024 2 mL, Injection - FOR ORTHO USE ONLY, ONCE, 1 dose, Starting on Mon10/04/24 at 1354, Until Mon10/04/24 at 1354 lovastatin 40 mg oral tablet (13 sources) HMG-CoA Reductase Inhibitor Start: 07-06-2021 End: 09-14-2022 take 1 tablet by mouth once daily at bedtime lovastatin 40 mg tablet Take 1 tablet by mouth daily at bedtime. 90 tablet 3 07/06/2021 09/14/2022 Discontinued (Clinical Decision) Comment on above: Take 1 tablet by reese th daily at bedtime. perflutren lipid microspheres 1.3 mL in NaCl (PF) 0.9% 10 mL injection (DEFINITY) (20 sources) Start: 09-14-2022 End: 12-14-2023 perflutren lipid microspheres 1.3 mL in NaCl (PF) 0.9% 10 mL injection (DEFINITY) Start: 07-06-2021 End: 09-14-2022 perflutren lipid microsphere s 1.3 mL in NaCl (PF) 0.9% 10 mL injection (DEFINITY) Start: 07-06-2021 End: 10-05-2022 perflutren lipid microsphere s 1.3 mL in NaCl (PF) 0.9% 10 mL injection (DEFINITY) Start: 06-29-2020 End: 09-28-2021 perflutren lipid microsphere s 1.3 mL in NaCl (PF) 0.9% 10 mL injection (DEFINITY) predniSONE 20 mg oral tablet (5 sources) Start: 02-02-2024 End: 02-06-2024 take 2 tablets by mouth once daily at mealtime predniSONE (DELTASONE) 20 mg tablet Indications: Rash Take 2 tablets by mouth once daily for 4 days. Take daily with food. 8 tablet 02/02/2024 02/06/2024 Start: 09-19-2023 End: 10-01-2023 predniSONE (DELTASONE) 10 mg tablet Indications: Left wrist tendonitis Take 4 tabs daily x 3 days, then 3 tabs x 3 days, 2 tabs x 3 days, then 1 tab x3 days with food. 30 tablet 0 09/19/2023 10/01/2023 Active Start: 11-09-2022 End: 11-18-2022 predniSONE (DELTASONE) 10 mg tablet Take 4 tabs daily for 3 days, then 2 tabs daily for 3 days, then 1 tab daily for 3 days with food. 21 tablet 0 11/09/2022 11/18/2022 Active Comment on above: Take 4 tabs daily fo r 3 days, then 2 tabs daily for 3 days, then 1 tab daily for 3 days with food. Take 4 tabs daily x 3 days, then 3 tabs x 3 days, 2 tabs x 3 days, then 1 tab x3 days with food. 125 ml sodium chloride 9 mg/ml prefilled syringe (20 sources) Start: 06-29-19 End: 12-14-19 sodium chloride 0.9 % (flush) 10 mL (BD POSIFLUSH) tamsulosin hydrochloride 0.4 mg oral capsule (20 sources) alpha-Adrenergic Brittaney Start: 06-28-19 24 End: 06-06-19 take 1 capsule by mouth once daily at bedtime tamsulosin (FLOMAX) 0.4 mg Indications: Kidney stones Take 1 capsule by mouth daily at bedtime. 90 capsule 08/08/2023 06/06/2024 Discontinued Comment on above: Take 1 capsule by mo [facility] daily at bedtime. triamcinolone acetonide 5 mg/ml topical cream (20 sources) Corticosteroid Start: 03-21-20 End: 06-19-19 triamcinolone acetonide (KENALOG) 0.5 % cream Indications: Chemical dermatitis Apply 1 application to affected area two times a day. For rash/itching. Apply sparingly. Avoid face/skin fold. 30 g 2 03/21/2024 06/06/2024 Discontinued Start: 02-02-2024 End: 03-19-2024 triamcinolone (KENALOG) 0.02 5 % cream Indications: Rash Apply 1 application to affected area two times a day. 90 g 02/02/2024 03/19/2024 Discontinued (Discontinued by Patient) Start: 06-06-2023 End: 01-02-2024 triamcinolone acetonide (ALEXIS ALOG) 0.1 % cream Apply to affected areas twice daily as needed for irritation following photodynamic therapy. 15 g 1 06/06/2023 01/02/2024 Discontinued Start: 01-11-2023 triamcinolone acetonide (KENALOG) 0.1 % cream Apply to affected areas twice daily as needed for irritation following photodynamic therapy. 15 g 1 01/11/2023 Active Comment on above: Apply to affected ar eas twice daily as needed for irritation following photodynamic therapy. vitamin e 90 mg oral capsule (20 sources) Vitamin E, dl, a cetate, (VITAMIN E) 134 mg (200 unit) Capsule Take by mouth once daily. 0 Active Comment on above: Take by mouth once d aily. Problems Active Problems Problem Classification Problem Date Documented Date Episodic/Chronic Acquired foot deformities (3 sources) Hammer toe; Translations: [Other hammer toe(s) (acquired), left foot] Onset: 07-01-2024 07-01-2024 Chronic Aortic; peripheral; and visceral artery aneurysms (20 sources) Ascending aorta dilatation; Translations: [Thoracic aortic ectasia] Onset: 07-08-2019 Resolved: 07-06-2021 07-06-2021 Chronic Calculus of urinary tract (15 sources) Urolithiasis ; Translations: [Urinary calculus, unspecified] 06-27-2023 Episodic Cancer of thyroid (20 sources) Hurthle cell carcinoma of thyroid; 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] Onset: 01-14-2011 Resolved: 02-27-2017 01-14-2011 Chronic Complications of surgical procedures or [...] Onset: 03-23-2009 03-23-2009 Chronic Heart valve disorders (4 sources) Non-rheumatic mitral regurgitation ; Translations: [Nonrheumatic mitral (valve) insufficiency] Onset: 01-13-2025 Chronic Osteoarthritis (2 sources) Osteoarthritis of right knee joint; Translations: [Unilateral primary osteoarthritis, right knee] Onset: 10-04-2024 10-04-2024 Chronic Other and ill-defined heart disease (20 sources) Mild left ventricular systolic dysfunction; Translations: [Other ill-defined heart diseases] Onset: 07-08-2019 07-06-2021 Chronic Other and ill-defined heart disease (1 source) Other ill-defined heart diseases; Translations: [Mild left ventricular systolic dysfunction] Onset: 07-06-2021 Chronic Other connective tissue disease (1 source) Tendonitis of left wrist; Translations: [Other enthesopathies, not elsewhere classified] 09-19-2023 Episodic Other diseases of kidney and ureters (1 source) Renal impairment; Translations: [Disorder of kidney and ureter, unspecified] 12-11-2022 Episodic Other hereditary and degenerative nervous system conditions (20 sources) Restless legs; Translations: [Restless legs syndrome] Onset: 10-20-2020 10-20-2020 Chronic Other hereditary and degenerative nervous system conditions (1 source) Restless legs syndrome; Translations: [Restless legs syndrome] Onset: 10-20-2020 Chronic Other inflammatory condition of skin (3 sources) Seborrheic dermatitis; Translations: [Seborrheic dermatitis, unspecified] 07-14-2023 Episodic Other inflammatory condition of skin (1 source) Seborrheic dermatitis, unspecified; Translations: [Seborrheic dermatitis] Onset: 01-07-2025 Episodic Other injuries and conditions due to external causes (1 source) Unspecified foreign body in esophagus causing other injury, initial encounter; Translations: [Unspecified foreign body in esophagus causing other injury, initial encounter] Onset: 07-01-2024 Episodic Other lower respiratory disease (1 source) Cough; Translations: [Acute cough] 10-04-2023 Episodic Other lower respiratory disease (1 source) Cough; Translations: [Acute cough] 04-22-2024 Episodic Other nervous system disorders (1 source) Neuropathy; Translations: [Polyneuropathy, unspecified] 07-01-2024 Chronic Other nervous system disorders (1 source) [...] Obesity; Translations: [Obesity, unspecified] 12-12-2022 Chronic Other screening for suspected conditions (not mental disorders or infectious disease) (7 sources) Raised prostate specific antigen; Translations: [Elevated prostate specific antigen [PSA]] Onset: 11-12-2024 Episodic Other skin disorders (2 sources) Inflamed seborrheic keratosis; Translations: [Inflamed seborrheic keratosis] 01-11-2023 Episodic Other skin disorders (2 sources) Folliculitis; Translations: [Follicular disorder, unspecified] 02-02-2024 Episodic Other skin disorders (1 source) Eruption; Translations: [Rash and other nonspecific skin eruption] 02-02-2024 Episodic Other skin disorders (1 source) Scar; Translations: [Scar conditions and fibrosis of skin] 02-06-2024 Episodic Other upper respiratory infections (1 source) Chronic sinusitis; Translations: [Chronic sinusitis, unspecified] 01-02-2024 Chronic Other upper respiratory infections (2 sources) Acute upper respiratory infection; Translations: [Acute upper respiratory infection, unspecified] Episodic Pulmonary heart disease (20 sources) Pulmonary hypertension, unspecified; Translations: [Other chronic pulmonary heart diseases] Onset: 07-06-2021 07-06-2021 Chronic Residual codes; unclassified (20 sources) Obstructive sleep apnea syndrome; Translations: [Obstructive sleep apnea (adult) (pediatric)] Onset: 10-20-2020 10-20-2020 Chronic Residual codes; unclassified (2 sources) Obstructive sleep apnea (adult) (pediatric); Translations: [MAXIMILIAN on CPAP] Onset: 10-20-2020 Chronic Residual codes; unclassified (1 source) Other specified personal risk factors, not elsewhere classified; Translations: [Other specified personal history presenting hazards to health] Episodic Respiratory failure; insufficiency; arrest (adult) (1 source) Respiratory failure; insufficiency; arrest (adult); Translations: [Chronic renal failure (CRF), stage 3a (HCC)] Onset: 02-08-2024 Screening and history of mental health and substance abuse codes (2 sources) Encounter for screening for depression; Translations: [Encounter for screening examination for other mental health and behavioral disorders] Onset: 11-12-2024 Episodic Unclassified (1 source) Pain in both knees, unspecified chronicity 10-04-2024 Unclassified (1 source) Aneurysm of ascending aorta without rupture; Translations: [Aneurysm of ascending aorta without rupture] Onset: 09-05-2022 Unclassified (1 source) Obesity, Class II, BMI 35-39.9; Translations: [Obesity, Class II, BMI 35-39.9] Onset: 10-25-2017 Unclassified (1 source) 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); Translations: [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)] Onset: 09-05-2022 Past or Other Problems Problem Classification Problem Date Documented Date Episodic/Chronic Abdominal pain (5 sources) Left flank pain; Translations: [Unspecified abdominal pain] Onset: 11-01-2023 10-15-2023 Episodic Administrative/social admission (20 sources) Patient encounter status; Translations: [Persons encountering health services in other specified circumstances] Onset: 11-20-2023 11-20-2023 Episodic Allergic reactions (20 sources) Solar degeneration; Translations: [Other skin changes due to chronic exposure to nonionizing radiation] Onset: 08-23-2012 Resolved: 05-02-2016 05-02-2016 Episodic Cardiac dysrhythmias (20 sources) Sinus bradycardia; Translations: [Bradycardia, unspecified] Onset: 07-06-2021 07-06-2021 Episodic Conditions associated with dizziness or vertigo (2 sources) Peripheral vertigo; Translations: [Other peripheral vertigo, left ear] Onset: 07-01-2024 07-01-2024 Episodic Genitourinary symptoms and ill-defined conditions (2 sources) Nocturia; Translations: [Nocturia] Onset: 07-01-2024 07-01-2024 Episodic Neoplasms of unspecified nature or uncertain behavior (20 sources) Neoplasm of uncertain behavior of skin; Translations: [Neoplasm of uncertain behavior of skin] Onset: 08-23-2012 Resolved: 09-21-2012 09-21-2012 Episodic Other diseases of kidney and ureters (1 source) Hydronephrosis with renal and ureteral calculous obstruction; Translations: [Hydronephrosis with renal and ureteral calculous obstruction] Onset: 10-19-2023 Episodic Other ear and sense organ disorders (20 sources) Tinnitus; Translations: [Tinnitus, unspecified ear] Onset: 08-06-2010 08-06-2010 Episodic Other ear and sense organ disorders (20 sources) Tinnitus of vascular origin; Translations: [Pulsatile tinnitus, unspecified ear] Onset: 10-13-2010 Resolved: 09-21-2012 09-21-2012 Episodic Other non-epithelial cancer of skin (20 sources) Malignant neoplasm of skin of face; Translations: [Unspecified malignant neoplasm of skin of nose] Onset: 08-23-2012 Resolved: 09-21-2012 08-23-2012 Episodic Other non-traumatic joint disorders (3 sources) Pain in right knee; Translations: [Pain in joint, lower leg] Onset: 10-04-2024 10-04-2024 Episodic Other non-traumatic joint disorders (1 source) Pain in left knee; Translations: [Pain in both knees, unspecified chronicity] Onset: 10-04-2024 Episodic Other skin disorders (20 sources) Actinic keratosis; Translations: [Actinic keratosis] Onset: 08-23-2012 Resolved: 05-02-2016 01-11-2023 Episodic Other skin disorders (20 sources) Seborrheic keratosis; Translations: [Other seborrheic keratosis] Onset: 08-23-2012 Resolved: 05-02-2016 07-14-2023 Episodic Other skin disorders (20 sources) Scar conditions and fibrosis of skin; Translations: [Scar conditions and fibrosis of skin] Onset: 08-23-2012 Resolved: 05-02-2016 05-02-2016 Episodic Other skin disorders (20 sources) Solar lentigo; Translations: [Other melanin hyperpigmentation] Onset: 08-23-2012 Resolved: 05-02-2016 05-02-2016 Episodic Other skin disorders (1 source) Follicular disorder, unspecified; Translations: [Folliculitis] Onset: 03-19-2024 Episodic Residual codes; unclassified (20 sources) Family history of prostate cancer; Translations: [Family history of malignant neoplasm of prostate] Onset: 11-16-2015 11-16-2015 Episodic Residual codes; unclassified (20 sources) Insomnia; Translations: [Insomnia, unspecified] Onset: 07-08-2019 10-14-2020 Episodic Spondylosis; intervertebral disc disorders; other back problems (20 sources) Chronic low back pain; Translations: [Chronic midline low back pain without sciatica] Onset: 06-14-2016 06-14-2016 Episodic Results Test Name Value Interpretation Reference Range Facility [facility] SCH[facility]IB[facility] ([id number]) 1955 M NFR Date Time Provider Department 01/13/25 AYAKA ACEVEDO DERMST During your visit today, we recorded the following information about you: Eva Bird 01/13/2025 3:14 PM Signed Patient's spouse, Patricia calling to request orders for Patient to see ÁNGELA Mcdonald [facility] for a procedure on his nose that he needs repeated. Please contact Patricia to advise [phone] Thank you Francisca Amanda 01/15/2025 9:05 AM Signed Patient has been scheduled for 01/28 with Ayaka. Had questions about the following prescription: roflumilast (ZORYVE) 0.3 % foam 60 g 3 01/07/2025 -- Sig: Apply to affected area once daily. Sent to pharmacy as: roflumilast (ZORYVE) 0.3 % foam Class: Normal Notes to Pharmacy: Previously failed treatment with black tar shampoo, ketoconazole, calcipotriene, clobetasol Route: TOPICAL Order: [id number] E-Prescribing Status: Receipt confirmed by pharmacy (01/07/2025 9:47 AM EDT) States insurance was needing a potential auth Marry Hernandez RN 01/15/2025 10:21 AM Signed EPA initiated Allergies As of Date: 01/13/2025 (No Known Allergies) Date Reviewed: 01/07/2025 Reviewed by: Keri Ferro RN - Fully Assessed Reason for Visit: Orders [681] Cmt: See note Prescriptions as of 01/16/2025 - ketoconazole (NIZORAL) 2 % shampoo Apply to wet hair and let sit for 5-10 min before rinsing. Use 2-3 times weekly or as needed to control symptoms. - roflumilast (ZORYVE) 0.3 % foam Apply to affected area once daily. - levothyroxine (SYNTHROID) 137 mcg tablet Take 1 tablet by mouth once daily. Except none on sundays - allopurinol (ZYLOPRIM) 300 mg tablet Take 1 tablet by mouth once daily. - gabapentin (NEURONTIN) 300 mg capsule TAKE 1 CAPSULE BY MOUTH in evening THEN 2-3 CAPSULES AT bedtime. - lisinopril (ZESTRIL) 5 mg tablet Take 1 tablet by mouth once daily. - rosuvastatin (CRESTOR) 20 mg tablet Take 1 tablet by mouth daily at bedtime. - Ipratropium Breeding (ATROVENT) 21 mcg (0.03 %) nasal spray Use 2 Sprays in the nose every 12 hours. - Clobetasol Propionate (TEMOVATE) 0.05 % external solution Apply 1 application to affected area two times a day as needed. For the posterior scalp. - fluticasone (FLONASE) 50 mcg/actuation nasal spray Use 2 Sprays in each nostril once daily. Rinse mouth after use. - Calcipotriene 0.005 % soln Apply to to scalp twice daily. - omega 4-usr-wgn-fish oil (FISH OIL) 100-160-1,000 mg cap Take by mouth once daily. - ascorbic acid (SUSAN-C ORAL) Take by mouth once daily. - CPAP AutoPAP with humidification set at a range of 5-16 cmH2O. Lifetime supplies. Please fit with dreamwear under nose FFM. Please provide us download after 4 weeks of use. - Cholecalciferol, Vitamin D3, 50 mcg (2,000 unit) cap Take 1 capsule by mouth once daily. 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 Neoplasm of Uncertain Behavior(NUB) of skin: R/*08/23/2012 09/21/2012 R/O BCC (basal cell carcinoma), face: L side no*08/23/2012 09/21/2012 Skin cancer of nose [C44.301] 08/23/2012 Actinic Keratoses (Premalignant AK's) [L57.0] 08/23/2012 05/02/2016 Scar condition and fibrosis of skin [L90.5] 08/23/2012 05/02/2016 Solar lentigo [L81.4] 08/23/2012 05/02/2016 Other seborrheic keratosis [L82.1] 08/23/2012 05/02/2016 Actinic skin damage [L57.8] 08/23/2012 05/02/2016 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 02/27/2017 Family history of prostate cancer in father [Z8*11/16/2015 Mixed hyperlipidemia [E78.2] 11/16/2015 Chronic midline low back pain without sciatica *06/14/2016 Obesity, Class II, BMI 35-39.9 [E66.812] 10/25/2017 Post-surgical hypothyroidism [E89.0] 05/07/2018 Mild left ventricular systolic dysfunction [I51*07/08/2019 Thoracic aortic aneurysm without rupture (HCC) *07/08/2019 07/06/2021 Insomnia [G47.00] 07/08/2019 MAXIMILIAN (obstructive sleep apnea) [G47.33] 10/20/2020 Restless legs syndrome [G25.81] 10/20/2020 Sinus bradycardia [R00.1] 07/06/2021 Aneurysm of ascending aorta without rupture (HC*07/06/2021 Mild pulmonary hypertension (HCC) [I27.20] 07/06/2021 Essential hypertension [I10] 07/06/2021 Encounter for support and coordination of trans*11/20/2023 Encounter Status:Closed by EVA BIRD on 01/16/25 Normal [facility] ECHOon 01-13-2025 Echocardiography Echocardiography Report: Transthoracic Echo [facility] Date of service: 01/13/2025 8:41:03 AM ENGINEER Ordering physician: CAROLINE EL Exam indication: Ascending aortic aneurysm Technologist: Francisca Romero [facility] Interpreting physician: Nona Van MD PATIENT: Name: MR. LYNN SCHREIBER : 1955 Age: 69 years Gender: M History of hypertension and dyslipidemia. Primary rhythm: sinus. Height: 180.30 cm BSA: 2.51 m Weight: 125.70 kg BMI: 38.7 kg/m Heart rate 59 bpm Blood pressure 126/71 mmHg Color Doppler was utilized to interrogate the cardiac valves assessed and spectral Doppler was utilized to determine the flow velocities and pressure gradients reported in this exam. Myocardial strain analysis was performed in this exam to aid in the assessment of cardiac function. MEASUREMENTS: Value Indexed Normal Max aortic dimension 4.3 cm Ao < 3.8 Left atrial volume 94 ml (biplane A-L) 38 ml/m [place] <= 34 LV ID (diastole) 5.8 cm (2D) 2.32 cm/m LV ID (systole) 3.6 cm (2D) 1.44 cm/m IVS, leaflet tips 1.0 cm (2D) Posterior wall thickness 1.0 cm (2D) Left ventricular mass 235 g (2D) 94 g/m Global peak long strain -18.3 % LV stroke volume 100 ml (2D biplane) LV end diastolic volume 179 ml (2D biplane) 71.4 ml/m 34<=EDVi<75 LV end systolic volume 80 ml (2D biplane) 31.7 ml/m Ejection Fraction 56 % (2D biplane) EF > 52 FINDINGS: LEFT VENTRICLE The left ventricle is normal in size. Left ventricular systolic function is normal. Global LV myocardial strain is normal. Normal left ventricular diastolic function. Mitral annular lateral E/e': 6.6. Mitral annular septal E/e': 8.8. Wall Motion: All scored segments are normal. RIGHT VENTRICLE The right ventricle is normal in size. Right ventricular systolic function is normal. RV systolic tissue Doppler velocity is 12.0 cm/s. Tricuspid annular displacement is 2.1 cm. Estimated right ventricular systolic pressure is 28 mmHg consistent with normal pulmonary artery pressures. Estimated right atrial pressure is 3 mmHg (although IVC not seen). LEFT ATRIUM The left atrial cavity is normal in size. Pulmonary Veins: The pulmonary venous pattern showed blunted systolic flow. RIGHT ATRIUM The right atrial cavity is normal in size. MITRAL VALVE The mitral valve leaflets are structurally normal. There is trace (trace - 1+) mitral valve regurgitation. The pressure half time is 63 msec. The peak mitral E/A ratio is 1.09. The average mitral E/e' ratio is 7.7. The mitral flow deceleration time is 217 msec. TRICUSPID VALVE The tricuspid valve leaflets are structurally normal. There is trace (trace - 1+) tricuspid valve regurgitation. AORTIC VALVE The aortic valve cusps are structurally normal. There is mild (1+) aortic valve regurgitation. Tricuspid aortic valve. The peak gradient is 10 mmHg (peak velocity = 156.5 cm/s). PULMONIC VALVE The pulmonic valve cusps are structurally normal. There is trace (trace - 1+) pulmonic valve regurgitation. AORTA The visualized aorta is dilated. Measurements - Aortic valve annulus 2.2 cm. Mid ascending aorta 4.2 cm. Distal ascending aorta 4.3 cm. INTERATRIAL SEPTUM There is no evidence of intracardiac shunting as detected by Doppler. PERICARDIUM There is no pericardial effusion. There is an epicardial fat pad. CONCLUSIONS: - Exam indication: Ascending aortic aneurysm - The left ventricle is normal in size. Left ventricular systolic function is normal. EF = 56 5% (2D biplane) Normal left ventricular diastolic function. - The right ventricle is normal in size. Right ventricular systolic function is normal. - There are no significant valvular abnormalities. - The visualized aorta is dilated with a maximal dimension of 4.3 cm. - Exam was compared with the prior echocardiographic exam performed on 10/03/2023, no signififcant change. * * * Final * * * [employer] [facility] : [id number] [id number] Normal [facility] CNOVon 01-07-2025 CNOV Office Visit (DERMST ) LYNN SCHREIBER ([id number]) 1955 M NFR Date Time Provider Department 01/07/25 9:45 AM AYAKA ACEVEDO DERM During your visit today, we recorded the following information about you: Ayaka Acevedo APRN.CNP 01/07/2025 9:48 AM Signed EST PATIENT ENIO in Dermatology: 02/06/2024 Chief Complaint: Dermatitis History of Present Ilness: Lynn Corbin Abdoul is a 69 year old male who presents today for a focused skin examination. 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 Medication List is reviewed. ROS: Skin as above. Physical Exam: Barrera skin type: II The patient is a pleasant male in no apparent distress. Alert and oriented x 3. 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 - Start ketoconazole shampoo; instructed to apply 3 times per week, leave on scalp for 5 minutes before rinsing, focusing on affected plaque area. - Provided [employer] card for ketoconazole shampoo to reduce [id number] cost. - Prescribed Zoryve 0.3% foam to be applied once daily. - Advised patient to wait for pharmacy notification before picking up foam medication; will address alternatives if not covered. - Follow-up in 3 months to assess response to treatment. Related Medications ketoconazole (NIZORAL) 2 % shampoo Apply to wet hair and let sit for 5-10 min before rinsing. Use 2-3 times weekly or as needed to control symptoms. roflumilast (ZORYVE) 0.3 % foam Apply to affected area once daily. Sunscreen and sun protection reviewed. Should any areas change in size, shape or color, bleed or become tender, the patient will contact the office for evaluation sooner than their interval appointment. Follow up: 3 months Intake by Keri Ferro RN Recording using [employer] software for draft documentation of the visit was discussed with the patient/authorized patient relations representative; all questions welcomed and answered. Patient/authorized patient relations representative agreed to proceed I agree with the Chief Complaint, ROS, and Past Histories independently gathered by the clinical direct support specialist and the remaining scribed note accurately describes my personal service to the patient. BOBO Rojas Mackenzie, APRN.CNP 01/07/2025 9:48 AM Signed - Use the ketoconazole shampoo I sent to you three times per week. Apply it to your wet scalp, leave it on for five minutes, then rinse. Focus especially on the area with the plaque. 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 The pharmacy will call you when it?s ready after the prior authorization. - If your insurance won?t cover the shampoo or foam, use the [employer] coupon card provided to reduce your cost. - The clobetasol 0.05% ointment has been discontinued and will no longer be refilled. - Follow up in three months to check how your scalp is responding and to adjust your treatment. We will notify you when your foam prescription is approved and ready for pickup. Allergies As of Date: 01/07/2025 (No Known Allergies) Date Reviewed: 01/07/2025 Reviewed by: Keri Ferro RN - Fully Assessed Reason for Visit: Dermatitis [535] Primary Visit Diagnosis:Seborrheic dermatitis [L21.9] Order(s):ketoconazole (NIZORAL) 2 % shampooApply to wet hair and let sit for 5-10 min before rinsing. Use 2-3 times weekly or as needed to control symptoms.Disp: 120 mLRfl: 5 roflumilast (ZORYVE) 0.3 % foamApply to affected area once daily.Disp: 60 gRfl: 3 Prescriptions as of 01/07/2025 - ketoconazole (NIZORAL) 2 % shampoo Apply to wet hair and let sit for 5-10 min before rinsing. Use 2-3 times weekly or as needed to control symptoms. - roflumilast (ZORYVE) 0.3 % foam Apply to affected area once daily. - levothyroxine (SYNTHROID) 137 mcg tablet Take 1 tablet by mouth once daily. Except none o (more content not included)... Normal [facility] CNOVon 11-12-2024 CNOV Office Visit (FAMPWS ) LYNN SCHREIBER ([id number]) 1955 M NFR Date Time Provider Department 11/12/24 10:20 AM ZORAIDA TAVAREZ During your visit today, we recorded the following information about you: Pulse Blood pressure Weight 59/minute 130/78 117.9 kg Zoraida Tvaarez APRN.CNP 11/12/2024 9:53 AM Signed Chief Reason For Appointment No chief complaint on file. Lynn Schreiber is a 69 year old male who presents for annual exam. Last office visit date: 03/19/2024 Accompanied By spouse, Patricia Have you had any critical events, hospital stays, ER visits, surgeries or procedures since your last visit here in our office: No Specialists/Other Healthcare Providers Seen: Patient Care Team: Zoraida Tavarez APRN.CNP as PCP - General (Family Medicine) Caroline El DO as Heel Scourer (Cardiology) Concerns today: Edward Schreiber is a 69-year-old male with a history of hypothyroidism, aortic aneurysm, and gout, presenting for an annual wellness visit, with additional complaints of paresthesias, chronic knee pain, and hearing loss. HPI Annual Wellness Exam: - Scheduled thyroid labs in January, prior to appointment with Dr. Ladd in February. - Scheduled echocardiogram in January. - Denies recent weight loss, weight gain, fever, chills, or changes in vision. - Denies chest pain, leg swelling, or orthopnea. - Denies nausea, emesis, diarrhea, constipation, dysuria, hematuria, or excessive thirst. - Denies syncope, seizures, tremors, or suicidal ideation. Paresthesias: - Recent onset of tingling sensation in the left knee and left arm. - Describes sensation as little electrodes or like a fly or something walking across the skin. - Denies associated pain. - Chronic neck stiffness, attributed to CPAP use. Chronic Knee Pain: - Bilateral knee pain, described as aching and cracking. - Recent gel injection in the knee provided no relief. - X-ray showed arthritis and a bone spur. - Denies need for further intervention at this time. Hearing Loss: - Progressive hearing loss over several years. - Constant chirping and heartbeat sounds in ears, attributed to a blood vessel close to the inner ear. - Denies interest in hearing aids. Aortic Aneurysm: - Scheduled echocardiogram in January. Gout: - History of gout, previously managed with allopurinol. - Denies recent gout attacks. Active Problems ACTIVE PROBLEM LIST Encounter for Support and Coordination of Transition of Care - 11/20/2023 Comment: Hospital admission [facility] 10/14/2023 - 10/15/2023 Discharge diagnoses: Left proximal ureteral calculi Records: Presented to [facility] emergency department on 10/14/2023 with severe pain in the left side. CT demonstrated 5 to 6 mm stone in proximal left ureter. Patient was started on Flomax with IV hydration , mated overnight for IV hydration with intention for cystoscopy with left ureteroscopy and laser lithotripsy of stone with stent placement to pass the stone. Vital signs are stable. CBC demonstrated the following abnormals: RBC 3.92L-Hgb 11.5 L-HCT 35.2 L, RDW SD 45. 6H, neutrophil percent 76.7 H, lymph percent 12.1 L. Chemistries: Chloride 109H, anion gap 4L-BUN 22 H-CRE 2.10H, eGFR 33 L Urinalysis demonstrated no bacteria or cells. CT demonstrated stone in the proximal ureter Patient was given IV fluids and Zofran in the ER Consult placed with Dr. David Weeks: Recommended outpatient procedures. New medication: Ciprofloxacin 500 mg p.o. twice daily #10 Sinus Bradycardia - 07/06/2021 Aneurysm of Ascending Aorta Without Rupture - 07/06/2021 Mild Pulmonary Hypertension (Hcc) - 07/06/2021 Essential Hypertension - 07/06/2021 Maximilian (Obstructive Sleep Apnea) - 10/20/2020 Comment: DEQUAN Campbell PH# [phone]------FAX # [phone] Restless Legs Syndrome - 10/20/2020 Mild Left Ventricular Systolic Dysfunction - 07/08/2019 Insomnia - 07/08/2019 Comment: Uses PAP/DME [facility] (Download [employer]) DEQUAN Campbell PH# [phone]------FAX # [phone] Post-Surgical Hypothyroidism - 05/07/2018 Obesity, Class II, Bmi 35-39.9 - 10/25/2017 Chronic Midline Low Back Pain Without Sciatica - 06/14/2016 Comment: Sees Dr. 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 Mike Suresh Tinnitus - 08/06/2010 Gout - 03/23/2009 Comment: Age 48 at first flare; Usually in the right 5th MTP joint ROS: Ears/Nose/Mouth/Throa t: (+) hearing loss, (+) tinnitus Cardiovascular: (-) chest pain, (-) palpitations, (-) leg swelling Respiratory: (+) chronic cough, (+) exertional dyspnea, (-) orthopnea, (-) wheezing Gastrointestin (more content not included)... Normal [facility] CNOVon 10-04-2024 CNOV Office Visit (FRWS ) LYNN SCHREIBER ([id number]) 1955 M NFR Date Time Provider Department 10/04/24 1:30 PM [facility] During your visit today, we recorded the following information about you: Alisson José MA 10/04/2024 1:57 PM Addendum AMB ROOMING INTAKE FLOWSHEET DATA Pain Pain Level: 4 Pain Location: Knee-Right Description: Sore Duration Units: Years Frequency: Continuous Intervention/Comfort measure: Other: See comment Comments: Aleve helps somewhat Patient has bilateral knee pain. The right knee is worse than the left. Durolane injection into the right knee. LOT # [id number] EXP 12/17/2025 FANTASMA Tabor Dennis, V, DO 10/04/2024 1:55 PM Signed Subjective Edward is a 69-year-old male presenting with right knee pain and Achilles tendon pain. 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 The pain is exacerbated by activities such as yard work and walking, and he notes a significant decrease in strength in his knees, requiring him to use support to stand up from the ground. He denies swelling in the knee but mentions a history of gout and crystal formation in the kneecap, which required aspiration and a cortisone injection many years ago. Additionally, Edward reports a recent onset of sharp pain in the Achilles tendon of his right foot, which occurs when he twists his ankle. This pain has been present for the past few weeks and is described as excruciating at times. He has a history of foot surgeries to correct curled toes, with the most recent surgery involving the fusion of bones in his right foot. He believes that his altered gait due to these surgeries may be contributing to his knee and ankle pain. Edward expresses frustration with his decreased mobility and the impact it has on his ability to enjoy activities with his , such as walking. He is seeking relief from his pain, particularly as he plans to go on vacation soon and wants to be able to walk without discomfort. Musculoskeletal: (+) right knee pain, (+) knee weakness, (+) foot pain, (+) ankle pain, (-) knee swelling Objective There were no vitals taken for this visit. General: No acute distress. MSK/Ext: Right knee tenderness over medial compartment, left knee without abnormalities, right Achilles tendon intact, tenderness over right Achilles tendon. Labs Tests - Arthrocentesis (right knee): Crystals identified, consistent with gout Imaging - Bilateral knee X-ray: - Right knee: Joint space narrowing in the medial compartment, osteophytes, and sclerosis consistent with arthritis - Left knee: Normal 1. Primary osteoarthritis of right knee (M17.11) Radiographic evidence of joint space narrowing, osteophyte formation, and subchondral sclerosis in the medial compartment of the right knee, consistent with osteoarthritis. Symptoms include significant pain and decreased mobility, exacerbated by physical activity. No effusion noted. Left knee appears normal on imaging. - Administered VSCO supplement injection to the right knee to provide lubrication and cushioning, expected to last approximately 6 months. - Discussed alternative treatment options, including corticosteroid injections, but patient opted for VSCO supplementation due to longer duration of relief. - Patient advised to monitor symptoms and report any adverse reactions. Large Joint Arthro/Inj: R knee joint 10/04/2024 1:54 PM The procedure site was prepped in the usual sterile fashion. Site: R knee joint Medications: 30 mg hyaluronate sod, cross-linked 30 mg/3 mL Anesthetics: 2 mL lidocaine (PF) 10 mg/mL (1 %) Outcome: Tolerated well, no immediate complications Post-injection instructions were reviewed with the patient and the patient voiced understanding of these instructions. Informed Consent Consent Obtained: Verbal Vernon Protocol SIGN IN TIME OUT Attestation Recording using [employer] software for draft documentation of the visit was discussed with the patient/authorized patient relations representative; all questions welcomed and answered. Patient/authorized patient relations representative agreed to proceed Allergies As of Date: 10/04/2024 (No Known Allergies) Date Reviewed: 10/04/2024 Reviewed by: Alisson José MA - Fully Assessed Reason for Visit: Bilateral Knee Pain [1210] Visit Diagnosis:Primary osteoarthritis of right knee [M17.11] Order(s):Large Joint Arthro/Inj: R knee joint [QLL547] Order #: [id number] [] hyaluronate sod, cross-linked 30 mg injection (GEL-ONE)Disp: Rfl: [] lidocaine (PF) 10 mg/mL (1 %) 2 mL injection (XYLOCAINE)Disp: Rfl: Prescriptions as of 10/04/2024 - levothyroxine (SYNTHROID) 137 mcg tablet Take 1 tablet by mouth once daily. Except none on sundays - allopurinol (ZYLOPRIM) 300 (more content not included)... Normal [facility] Large Joint Arthro/Inj: R kn ee jointon 10-04-2024 Zohaib Grove V, DO 10/04/2024 1:55 PM Large Joint Arthro/Inj: R knee joint 10/04/2024 1:54 PM The procedure site was prepped in the usual sterile fashion. Site: R knee joint Medications: 30 mg hyaluronate sod, cross-linked 30 mg/3 mL Anesthetics: 2 mL lidocaine (PF) 10 mg/mL (1 %) Outcome: Tolerated well, no immediate complications Post-injection instructions were reviewed with the patient and the patient voiced understanding of these instructions. Informed Consent Consent Obtained: Verbal Vernon Protocol SIGN IN TIME OUT [facility] XR KNEE 4V AP/PA/LAT/MERCH B ILon 10-04-2024 XR KNEE 4V AP/PA/LAT/MERCH ERAN * * *Final Report* * * DATE OF EXAM: Oct 04 2024 1:22PM DAVID [id number] - XR KNEE 4V AP/PA/LAT/MERCH ERAN / PROCEDURE REASON: multiple diagnoses * * * * Physician Interpretation * * * * EXAMINATION: XR KNEE 4V AP/PA/LAT/MERCH ERAN HISTORY: chronic anterior bilateral knee pain. The right knee hurts worse. Pain in both knees, unspecified chronicity Pain in both knees, unspecified chronicity . TECHNIQUE: XR KNEE 4V AP/PA/LAT/MERCH ERAN Laterality: BILATERAL Number of different views (projections): 4 M: XB_1 COMPARISON: RESULT: Chondrocalcinosis of the knees bilaterally. Mild narrowing in the right medial compartment and mild degenerative change of both patellofemoral compartments. Joint spaces are otherwise maintained. No joint effusion. Mild anterior knee soft tissue swelling bilaterally. No acute fracture or dislocation. There are no bony erosions. IMPRESSION: No acute osseous findings. Record Press Supervisor: PSCB Transcribe Date/Time: Oct 09 2024 6:01P Dictated by : VIKA AL MD This examination was interpreted and the report reviewed and electronically signed by: VIKA AL MD on Oct 09 2024 6:02PM EST [id number] Normal [facility] CNOVon 07-01-2024 CNOV Office Visit (PODIWS ) LYNN SCHREIBER ([id number]) 1955 M NFR Date Time Provider Department 07/01/24 10:45 AM HARLAN PABON During your visit today, we recorded the following information about you: Rufina Lyn LPN 07/01/2024 6:56 PM Signed AMB ROOMING INTAKE FLOWSHEET DATA Pain Pain Level: 7 Pain Location: Other: See Comment (bilateral feet) Description: Numbness, Tingling Duration Amount of Time: 6 Duration Units: Months Frequency: Intermittent Intervention/Comfort measure: Reposition, Relaxation Patient presents with: Left Foot - Established Patient, Pain, Numbness, Numbness/Tingling Right Foot - Established Patient, Pain, Numbness, Numbness/Tingling Rufina Lyn LPN Harlan Pabon 07/01/2024 6:56 PM Signed Initial Podiatric Office Visit: Chief Complaint: This 68 year old male who presents with chief complaint:pins and needles of b/l feet HPI Patient presents to clinic for evaluation of b/l feet. Complains of pins and needles to both feet. He states as he walks, the tips of his toes will experience burning. He states he has to take his shoes off because of the pain. He states his foot feels asleep He also has noticed his feet turning inward leading to rubbing on his toes. PAIN EVALUATION 07/01/2024 1027 Pain Level: 7 Pain Location: Other: See Comment bilateral feet Description: Numbness;Tingling Duration Amount of Time: 6 Duration Units: Months Frequency: Intermittent Intervention/Comfort measure: Reposition;Relaxation Hemoglobin A1C (%) Date Value 07/09/2018 5.5 PCP: Zoraida Tavarez APRN.[employer] INTEGRATOR PAST MEDICAL HISTORY Diagnosis Date Ascending aorta dilatation (HCC) Basal cell cancer Decreased peripheral vision of left eye Elevated prostate specific antigen (PSA) Essential hypertension 07/06/2021 GERD (gastroesophageal reflux disease) Gout Jeffry's thyroiditis with thyroid nodules Kidney stones 06/27/2023 Mild left ventricular systolic dysfunction Mild pulmonary hypertension (HCC) Mixed hyperlipidemia 11/16/2015 Obesity MAXIMILIAN (obstructive sleep apnea) 10/20/2020 Osteoarthritis Sinus bradycardia Current Outpatient Medications Medication Sig gabapentin (NEURONTIN) 300 mg capsule TAKE 1 CAPSULE BY MOUTH in evening THEN 2-3 CAPSULES AT bedtime. lisinopril (ZESTRIL) 5 mg tablet Take 1 tablet by mouth once daily. rosuvastatin (CRESTOR) 20 mg tablet Take 1 tablet by mouth daily at bedtime. Ipratropium Breeding (ATROVENT) 21 mcg (0.03 %) nasal spray Use 2 Sprays in the nose every 12 hours. Clobetasol Propionate (TEMOVATE) 0.05 % external solution Apply 1 application to affected area two times a day as needed. For the posterior scalp. fluticasone (FLONASE) 50 mcg/actuation nasal spray Use 2 Sprays in each nostril once daily. Rinse mouth after use. ketoconazole (NIZORAL) 2 % shampoo Apply to wet hair, lather for 5-10 minutes, and rinse thoroughly. Use 2-3 times weekly or as needed to control symptoms. allopurinol (ZYLOPRIM) 300 mg tablet Take 1 tablet by mouth once daily. Calcipotriene 0.005 % soln Apply to to scalp twice daily. levothyroxine (SYNTHROID) 137 mcg tablet Take 1 tablet by mouth once daily. Except none on sundays omega 0-ixb-lyd-fish oil (FISH OIL) 100-160-1,000 mg cap Take by mouth once daily. ascorbic acid (SUSAN-C ORAL) Take by mouth once daily. CPAP AutoPAP with humidification set at a range of 5-16 cmH2O. Lifetime supplies. Please fit with dreamwear under nose FFM. Please provide us download after 4 weeks of use. Cholecalciferol, Vitamin D3, 50 mcg (2,000 unit) cap Take 1 capsule by mouth once daily. Current Facility-Administered Medications Medication Dose Route Frequency Aminolevulinic Acid HCl 20 % soln 2 Each 2 Each TOPICAL As Directed ALLERGIES No Known Allergies PAST SURGICAL HISTORY [...] Never Smokeless tobacco: Never Vaping Use Vaping status: Never Used Substance Use Topics Alcohol use: Not Currently Drug use: Not Currently Types: Marijuana REVIEW OF SYSTEMS GENERAL: Negative for Malaise, significant weight loss, fever RESPIRATORY: Negative for cough, wheezing and shortness of breath CARDIOVASCULAR: Negative for chest pain, leg swelling and palpitations GI: Negative for abdominal discomfort, blood i (more content not included)... Normal [facility] CNOV Office Visit (SLEWST ) LYNN SCHREIBER ([id number]) 1955 M NFR Date Time Provider Department 07/01/24 9:00 AM ANTHONY LOREDO JR SLECHRISTY During your visit today, we recorded the following information about you: Pulse Respiration Blood pressure Weight 58/minute 16/minute 133/72 123.6 kg Joyce Paez LPN 07/01/2024 9:09 AM Signed Anthony Loredo Jr., MD 07/01/2024 11:10 AM Addendum ESTABLISHED PATIENT VISIT CHIEF COMPLAINT: Follow Up HISTORY OF PRESENT ILLNESS: Lynn Schreiber is a 68 year old male, BMI 37.99 kg/m2 with a PMH significant for and per last visit with Natalie Cardona CNP on 12/25/23: Maximilian on cpap (primary encounter diagnosis) Restless legs syndrome Lynn Schreiber is a 68 year old male with PMH of MAXIMILIAN on APAP, RLS, HLD, HTN, skin cancer nose, thyroid cancer, hypothyroidism, obesity. --Patient is compliant with PAP therapy and reports subjective benefits from treatment --We reviewed PAP compliance report; AHI is normalized PLAN: - Continue Auto CPAP - Remember to clean your mask and equipment regularly, as directed. - You should be eligible for new supplies approximately every 3-6 months, depending on your insurance coverage. Contact your [employer] company for new supplies as needed. Continue gabapentin for treatment of RLS. He has decreased gabapentin to 600 mg at 8 PM, he dislikes taking any meds. He is satisfied with this regimen. PAP compliance up to 06/27/24 shows 90/90 days used for avg of 6 hours and 18 minutes. Set at 5-16 cmH2O with EPR 3. 95% pressure is 9.5 cmH2O. 95% leak is 12.6 LPM. AHI is 1.0. No sleep complaints. Waking at night only to urinate - 1-2 x. Chronic. No PSA since 2022 but history of being elevated. Does report a lot of stop and start of stream. Pt is also noticing mild vertigo over the past month if turns over and lies on the left side. Not like vertigo in the past. Only positional. thinks he has hearing problems. Also states he is cracking his neck but no neck pain. RLS stable - was on gabapentin 900mg but decreased to 600mg as felt he was taking too many pills. Sits there watching tv in bed and legs are moving. Is taking gabapentin at least an hour prior to getting in bed. REVIEW OF SYSTEMS GENERAL:No weight loss, malaise or fevers. HEENT:Negative for frequent or significant headaches, No changes in hearing or vision, no nose bleeds or other nasal problems NECK:Negative for lumps, goiter, pain and significant neck swelling RESPIRATORY: Negative for cough, wheezing or shortness of breath. CARDIOVASCULAR: Negative for chest pain, leg swelling or palpitations. GASTROINTESTINAL: Negative for abdominal discomfort, blood in stools or black stools or change in bowel habits GENITOURINARY: See HPI. MUSCULOSKELETAL: Negative for joint pain or swelling, back pain or muscle pain. NEUROLOGIC:Pt with neuropathy - following with podiatry. SKIN:Negative for lesions, rash, and itching. LAB/IMAGING: [...] Value 06/19/2023 10.0 Glucose (mg/dL) Date Value 02/08/2024 103 (H) BUN (mg/dL) Date Value 02/08/2024 31 (H) Creatinine (mg/dL) Date Value 02/08/2024 1.43 (H) Sodium (mmol/L) Date Value 02/08/2024 142 Potassium (mmol/L) Date Value 02/08/2024 4.6 Chloride (mmol/L) Date Value 02/08/2024 106 CO2 (mmol/L) Date Value 02/08/2024 25 Protein, Total (g/dL) Date Value 02/08/2024 6.4 Albumin (g/dL) Date Value 02/08/2024 4.1 Calcium, Total (mg/dL) Date Value 02/08/2024 9.1 Alkaline Phosphatase (U/L) Date Value 02/08/2024 72 Bilirubin, Total (mg/dL) Date Value 02/08/2024 0.4 AST (U/L) Date Value 02/08/2024 20 ALT (U/L) Date Value 02/08/2024 24 Hep C Antibody IA (no units) Date Value 11/16/2015 Negative MEDICATIONS: lisinopril (ZESTRIL) 5 mg tabletTake 1 tablet by mouth once daily.Disp: 90 tabletRfl: 3 rosuvastatin (CRESTOR) 20 mg tabletTake 1 tablet by mouth daily at bedtime.Disp: 90 tabletRfl: 3 Ipratropium Breeding (ATROVENT) 21 mcg (0.03 %) nasal sprayUse 2 Sprays in the nose every 12 hours.Disp: 3.5 mLRfl: 5 Clobetasol Propionate (TEMOVATE) 0.05 % external solutionApply 1 application to affected area two times a day as needed. For the posterior scalp.Disp: 50 mLRfl: 2 fluticasone (FLONASE) 50 mcg/actuation nasal sprayUse 2 Sprays in each nostril once daily. Rinse mouth after use.Disp: 1 Eac (more content not included)... Normal [facility] XR FOOT 3V AP/LAT/OBL LTon 0 07-01-2024 XR FOOT 3V AP/LAT/OBL LT * * *Final Repo rt* * * DATE OF EXAM: Jul 01 2024 11:43AM [id number] [id number] - XR FOOT 3V AP/LAT/OBL LT / PROCEDURE REASON: Hammer toe of left foot * * * * Physician Interpretation * * * * PROCEDURE: Left foot INDICATION: Hammer toe of left foot .PT STATES LEFT FOOT 2ND TOE HAMMER TOE TECHNIQUE: XR FOOT 3V AP/LAT/OBL LT COMPARISON: 03/09/2021 FINDINGS/ IMPRESSION: Prior bunionectomy, stable in appearance. Multiple hammertoes, most prominent of the 2nd toe. Arthrodesis of the 3rd and 4th PIP joints. No fracture or dislocation. No erosion or focal soft tissue swelling. Record Press Supervisor: PSCB Transcribe Date/Time: Jul 03 2024 8:00A Dictated by : LYNN BAXTER MD This examination was interpreted and the report reviewed and electronically signed by: LYNN BAXTER MD on Jul 03 2024 8:01AM EST [id number] N Normal [facility] CNOVon 06-06-2024 CNOV Office Visit (CARDMM ) LYNN SCHREIBER ([id number]) 1955 M NFR Date Time Provider Department 06/06/24 2:40 PM CAROLINE EL During your visit today, we recorded the following information about you: Pulse Blood pressure Weight Height 65/minute 118/76 125.7 kg 1.803 m Caroline El DO 06/06/2024 4:21 PM Signed [facility] OUTPATIENT VISIT DATE June 06, 2024 PRIMARY CARE PHYSICIAN: Zoraida Tavarez [address] [place] [address] HISTORY OF PRESENT ILLNESS: Mr. Schreiber is a 68 year old male. The patient returns for follow-up secondary to a history of of mild LV systolic dysfunction, near normalized on optimal medical therapy, ascending aortic dilatation of 4.2 cm, hypertension, hyperlipidemia, obstructive sleep apnea and mitral regurgitation. He denies chest discomfort, dyspnea, orthopnea, paroxysmal after dyspnea, palpitations, near-syncope or syncope. PLAN AND RECOMMENDATIONS: The patient remains stable without apparent symptoms that would suggest angina or cardiac decompensation. Heart rate, blood pressure and recent cholesterol profile are favorable. We have therefore made no additions or changes. Dietary and lifestyle modification was reemphasized to facilitate risk factor reduction. We will look forward to reevaluating him in 6 to 7 months time with echocardiogram being updated prior to the visit so that it is available to review. Vitals: BP 118/76 Pulse 65 Ht 180.3 cm (5' 11) Wt 125.7 kg (277 lb 1.9 oz) SpO2 97% BMI 38.65 kg/m? Physical Exam Vitals reviewed. Constitutional: General: [...] Negative for pain and visual disturbance. Respiratory: Negative for chest tightness and shortness of breath. Cardiovascular: Negative for chest pain, palpitations and [...] Negative for adenopathy. Does not bruise/bleed easily. Psychiatric/Behaviora l: Negative for sleep disturbance. The patient is not nervous/anxious. PAST MEDICAL HISTORY Diagnosis Date Ascending aorta dilatation (HCC) Basal cell cancer Decreased peripheral vision of left eye Elevated prostate specific antigen (PSA) Essential hypertension 07/06/2021 GERD (gastroesophageal reflux disease) Gout Jeffry's thyroiditis with thyroid nodules Kidney stones 06/27/2023 Mild left ventricular systolic dysfunction Mild pulmonary [...] Use Smoking status: Never Smokeless tobacco: Never Va (more content not included)... Normal [facility] Emergency Department Summary on 06-05-2024 Emergency Department Summary [facility] Medical Records Department [address] [place] [address] Emergency Department Summary 06/05/24 MR#: [id number] Acct: [id number] Name: LYNN SCHREIBER Rep #: [id number] : 1955 68 From: Vinicio Gong DO PCP: Dr. Anthony Solano MD Status:DEP ER Location: ED HPI History of Present Illness Chief Complaint: Foreign Body Informant: patient, parent and EMS Narrative Narrative: 68-year-old male states that he was eating broccoli when a piece got stuck in his esophagus. He felt chest tightness and was coughing. On the way the hospital he was able to start expectorating the food and after drinking to cope feel significantly better. He has not had this problem in the past. He denies any significant reflux symptoms. PFSH PFS Medical History Kidney stone Basal cell carcinoma Restless leg syndrome Gout Thyroid cancer Hyperlipidemia HTN (hypertension) Pyelonephritis Vertigo Home Medications ???Medication ???Instructions ???Recorded ???Last Taken ???Type allopurinol 300 mg tablet 300 mg PO DAILY 10/14/23 Unknown History gabapentin 300 mg capsule 300 mg PO QHS 10/14/23 Unknown History ibuprofen 400 mg tablet 400 mg PO Q8H PRN pain #14 tabs 10/14/23 Unknown Rx levothyroxine 137 mcg tablet 137 mcg PO MOTUWETHFRSA 10/14/23 Unknown History lisinopril 5 mg tablet 5 mg PO DAILY 10/14/23 Unknown History rosuvastatin 20 mg tablet 20 mg PO QHS 10/14/23 Unknown History tamsulosin 0.4 mg capsule (Flomax) 0.4 mg PO DAILY PRN urination 10/14/23 Unknown History Allergy/AdvReac Type Severity Reaction Status Date / Time No Known Allergies Allergy Verified 06/05/24 13:21 Surgical History History of thyroid surgery Social History Smoking Status: Never smoker ROS ROS ED Constitutional Constitutional ED: Denies chills or weight loss Eyes Eyes: Denies change in vision or diplopia ENT ENT ED: Denies ear pain, rhinorrhea or sore throat Cardiovascular Cardiovascular: Reports chest pain; Denies orthopnea, palpitations or racing heartbeat Respiratory/Chest Respiratory/Chest: Reports cough; Denies dyspnea or orthopnea Gastrointestinal Gastrointestinal: Denies abdominal pain, diarrhea, nausea or vomiting Genitourinary Genitourinary ED: Denies dysuria, hematuria or urinary frequency Musculoskeletal Musculoskeletal: Denies arthralgias or myalgias Integumentary Denies abscess or rash Neurologic Neurologic: Denies headache(s) or weakness Psychiatric Psychiatric: Denies anxiety, depression, suicidal ideation or suicidal thoughts Endocrine Endocrinology: Denies polydipsia, polyphagia or polyuria Allergic/Immunologic Allergic/Immunologic ED: Denies mouth swelling, tongue swelling or urticaria EXAM Physical Exam Const Vital Signs: 06/05/24 13:16 06/05/24 13:42 Temperature 97.4 F L Temperature Source Oral Pulse Rate 59 L Respiratory Rate 16 Respiratory Effort Normal Respiratory Pattern Normal Blood Pressure 154/73 H Blood Pressure Mean 100 Pulse Ox 97 Oxygen Delivery Method Room Air Positive well nourished and well developed General Appearance ED: well developed HEENT Reports normocephalic, head/scalp atraumatic and moist mucous membranes Eyes PERRL and EOMs intact bilaterally Neck no lymphadenopathy, supple and no JVD Resp normal respiratory effort and clear to auscultation bilaterally Cardio regular rate, regular rhythm and no murmurs GI normal to inspection, nondistended, normoactive bowel sounds and non-tender Palpation: soft Back/Spine no CVA tenderness and normal ROM Extremity normal to inspection General Extremety ED: Negative for edema General Extremity: Negative for edema Neuro oriented x3 and CN's II-XII intact bilaterally Sensorium / Orientation: alert Motor Exam: strength 5/5 throughout Psych mental status grossly normal Mood Affect: Negative for depressed or tearful Skin no rashes or lesions noted and no wounds MDM MDM MDM Narrative Medical decision making narrative: Differential diagnosis includes but not limited to acute coronary syndrome esophageal foreign body esophageal perforation gastritis esophageal stricture Patient feels otherwise back to baseline. That had this problem before. We talked about follow-up. We talked about returning with worsening symptoms. She was straightforwardly today and drink plenty of fluids were ordered History Record Review Discussion w/independent historian: EMS personnel, Patient and Significant other Discharge Plan Triage Chief Complaint: Foreign Body ED Provider: Vinicio Gong Dx/Rx/DC Orders Clinical Impress (more content not included)... [facility] LYNN SCHREIBER ([id number]) 1955 M NFR Date Time Provider Department 04/22/24 7:15 AM [facility] During your visit today, we recorded the following information about you: Temperature Pulse Respiration Blood pressure 96.6 degrees 63/minute 20/minute 140/70 Weight 122.6 kg Saurav Max MD 04/22/2024 7:40 AM Signed Patient presents with: Cough: Congestion, head pressure x 1 week HPI: Feeling sick for 1 week. Head pressure is not improving, cough is worsening. Cough is productive and he has near syncope during coughing spells. Positive symptoms: Cough, Sinus pressure, Nasal Congestion, Rhinorrhea, Malaise, Fatigue, chest soreness from coughing Negative symptoms: Shortness of breath, Chest pain, Fever, Nausea, Vomiting, Diarrhea, OTC: Mucinex, delsym, Claritin No COVID testing this illness. MEDICATIONS: Current Outpatient Medications Medication Sig triamcinolone acetonide (KENALOG) 0.5 % cream Apply 1 application to affected area two times a day. For rash/itching. Apply sparingly. Avoid face/skin fold. fluticasone (FLONASE) 50 mcg/actuation nasal spray Use 2 Sprays in each nostril once daily. Rinse mouth after use. Clobetasol Propionate (TEMOVATE) 0.05 % external solution Apply 1 application to affected area two times a day as needed. For the posterior scalp. tamsulosin (FLOMAX) 0.4 mg Take 1 capsule by mouth daily at bedtime. ketoconazole (NIZORAL) 2 % shampoo Apply to wet hair, lather for 5-10 minutes, and rinse thoroughly. Use 2-3 times weekly or as needed to control symptoms. gabapentin (NEURONTIN) 300 mg capsule TAKE 1 CAPSULE BY MOUTH in evening THEN 2-3 CAPSULES AT bedtime. allopurinol (ZYLOPRIM) 300 mg tablet Take 1 tablet by mouth once daily. Calcipotriene 0.005 % soln Apply to to scalp twice daily. Ipratropium Breeding (ATROVENT) 21 mcg (0.03 %) nasal spray Use 2 Sprays in the nose every 12 hours. levothyroxine (SYNTHROID) 137 mcg tablet Take 1 tablet by mouth once daily. Except none on sundays lisinopril (ZESTRIL) 5 mg tablet Take 1 tablet by mouth once daily. rosuvastatin (CRESTOR) 20 mg tablet Take 1 tablet by mouth daily at bedtime. omega 8-cqw-did-fish oil (FISH OIL) 100-160-1,000 mg cap Take by mouth once daily. ascorbic acid (SUSAN-C ORAL) Take by mouth once daily. CPAP AutoPAP with humidification set at a range of 5-16 cmH2O. Lifetime supplies. Please fit with dreamwear under nose FFM. Please provide us download after 4 weeks of use. Cholecalciferol, Vitamin D3, 50 mcg (2,000 unit) cap Take 1 capsule by mouth once daily. Current Facility-Administered Medications Medication Dose Route Frequency Aminolevulinic Acid HCl 20 % soln 2 Each 2 Each TOPICAL As Directed ALLERGIES: ALLERGIES No Known Allergies VITALS: BP 140/70 Pulse 63 Temp (!) 35.9 ?C (96.6 ?F) Resp 20 Wt 122.6 kg (270 lb 4.5 oz) SpO2 98% BMI 37.70 kg/m? PHYSICAL EXAM: GEN: mildly ill appearing HEENT: PERRL, EOMI, conjunctiva clear Ears: canals clear. TMs without erythema, bulge, or effusion Sinuses: non-tender frontal sinus, non-tender maxillary sinuses Throat: moist mucous membranes, mild erythema, no exudate Neck: supple, no thyromegaly, no lymphadenopathy HEART: regular rate and rhythm, no murmurs LUNGS: clear to auscultation, no wheezes or crackles, no increased WOB ASSESSMENT/PLAN: 1. Acute cough - ICD9: 786.2, ICD10: R05.1 (primary diagnosis) 2. Acute non-recurrent sinusitis, unspecified location - ICD9: 461.9, ICD10: J01.90 - differential includes COVID-19, other viral URI, bacterial sinusitis, or atypical pneumonia which is prevalent in the community. He declines COVID testing since he is already had symptoms for 1 week. - Discussed supportive care treatment with rest, cough and cold medicine, and analgesia. - Red flags to seek further treatment include chest pain, shortness of breath, and lethargy; in the ER if severe. - DOXYCYCLINE MONOHYDRATE 100 MG CAPSULE - BENZONATATE 100 MG CAPSULE Saurav Max MD Allergies As of Date: 04/22/2024 (No Known Allergies) Date Reviewed: 04/22/2024 Reviewed by: Imani Rizzo MA - Fully Assessed Reason for Visit: Cough [28] Cmt: Congestion, head pressure x 1 week Primary Visit Diagnosis:Acute cough [R05.1] Other Visit Diagnosis:Acute non-recurrent sinusitis, unspecified location [J01.90] Order(s):doxycycline monohydrate (MONODOX) 100 mg capsuleTake 1 capsule by mouth two times a day for 5 days.Disp: 10 capsuleRfl: 0 benzonatate (TESSALON PERLE) 100 mg capsuleTake 1 capsule by mouth every 8 hours as needed for cough for up to 15 days.Disp: 30 capsuleRfl: 0 Prescriptions as of 04/22/2024 - doxycycline monohydrate (MONODOX) 100 mg capsule Take 1 capsule by mouth two times a day for 5 days. - benzonatate (TESSALON PERLE) 100 mg capsule Take 1 capsule by reese (more content not included)... Normal [facility] 03-20-2024 [facility] Telephone (INTMWS) LYNN SCHREIBER ([id number]) 1955 M NFR Date Time Provider Department 03/20/24 ZORAIDA TAVAREZ INTWS During your visit today, we recorded the following information about you: Vickie Pierce LPN 03/20/2024 11:23 AM Signed Unable to complete PA electronically. Completed via covermymeds. LYNN SCHREIBER ([place]: [id number]) - [id number] Clotrimazole-Betameth asone 1-0.05% lotion status: PA Request Created: March 19, 2024 [id number] Sent: March 20, 2024 Vickie Pierce LPN 03/21/2024 8:21 AM Signed Called the pharmacy yesterday and pt didn't pick it up yet . They said it would be over 100$ so PA completed. This was denied. It doesn't say what would be covered. ASIF SCHREIBER ([place]: [id number] GRIFFITH Rx #: [id number] Outcome Denied on March 20 by [employer] Medicare 2017 Denied. This drug used for FOLLICULAR DISORDER UNSPECIFIED is not an approved use. Medicare Part D rules states the drug must be used for a medically-accepted indication. A medically-accepted indication means a use that is approved by the Food and Drug Administration (FDA), or a use supported by specific resources. These are the [facility] Formulary Service Drug Information and DRUGDEX Information System. Therefore, this drug cannot be covered under your Medicare Part D benefit. Drug Clotrimazole-Betameth asone 1-0.05% lotion [employer] Medicare Electronic Prior Authorization Request Form. Zoraida Tavarez APRN.CNP 03/21/2024 9:43 AM Signed Please see if pt. Got the keflex (antibiotics). I will order a steroid alone but stronger than what he had. Tosin Underwood LPN 03/21/2024 1:33 PM Signed Talked to . 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 He does have ATB and taking. Allergies As of Date: 03/20/2024 (No Known Allergies) Date Reviewed: 03/19/2024 Reviewed by: Zoraida Tavarez APRN.CNP - Fully Assessed Reason for Visit: Insurance Authorization [1693] Primary Visit Diagnosis:Chemical dermatitis [L25.3] Order(s):triamcinolon e acetonide (KENALOG) 0.5 % creamApply 1 application to affected area two times a day. For rash/itching. Apply sparingly. Avoid face/skin fold.Disp: 30 gRfl: 2 Prescriptions as of 03/21/2024 - triamcinolone acetonide (KENALOG) 0.5 % cream Apply 1 application to affected area two times a day. For rash/itching. Apply sparingly. Avoid face/skin fold. - cephALEXin (KEFLEX) 500 mg capsule Take 1 capsule by mouth two times a day for 5 days. - fluticasone (FLONASE) 50 mcg/actuation nasal spray Use 2 Sprays in each nostril once daily. Rinse mouth after use. - Clobetasol Propionate (TEMOVATE) 0.05 % external solution Apply 1 application to affected area two times a day as needed. For the posterior scalp. - tamsulosin (FLOMAX) 0.4 mg Take 1 capsule by mouth daily at bedtime. - ketoconazole (NIZORAL) 2 % shampoo Apply to wet hair, lather for 5-10 minutes, and rinse thoroughly. Use 2-3 times weekly or as needed to control symptoms. - gabapentin (NEURONTIN) 300 mg capsule TAKE 1 CAPSULE BY MOUTH in evening THEN 2-3 CAPSULES AT bedtime. - allopurinol (ZYLOPRIM) 300 mg tablet Take 1 tablet by mouth once daily. - Calcipotriene 0.005 % soln Apply to to scalp twice daily. - Ipratropium Breeding (ATROVENT) 21 mcg (0.03 %) nasal spray Use 2 Sprays in the nose every 12 hours. - levothyroxine (SYNTHROID) 137 mcg tablet Take 1 tablet by mouth once daily. Except none on sundays - lisinopril (ZESTRIL) 5 mg tablet Take 1 tablet by mouth once daily. - rosuvastatin (CRESTOR) 20 mg tablet Take 1 tablet by mouth daily at bedtime. - omega 9-int-gkm-fish oil (FISH OIL) 100-160-1,000 mg cap Take by mouth once daily. - ascorbic acid (SUSAN-C ORAL) Take by mouth once daily. - CPAP AutoPAP with humidification set at a range of 5-16 cmH2O. Lifetime supplies. Please fit with dreamwear under nose FFM. Please provide us download after 4 weeks of use. - Cholecalciferol, Vitamin D3, 50 mcg (2,000 unit) cap Take 1 capsule by mouth once daily. 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 Normal [facility] CNOVon 03-19-2024 CNOV Office Visit (FAMPWS ) LYNN SCHREIBER ([id number]) 1955 M NFR Date Time Provider Department 03/19/24 12:40 PM ZORAIDA TAVAREZ FAMPWS During your visit today, we recorded the following information about you: Pulse Respiration Blood pressure Weight 57/minute 18/minute 122/70 122 kg Zoraida Tavarez APRN.[facility] 03/19/2024 1:00 PM Signed This is a 68 year old male who presents today with: Patient presents with: Derm Problem HISTORY OF PRESENT ILLNESS: Lynn Corbin Abdoul is a 68 year old male. Patient presents with: Derm Problem Was in [place] swimming every day for several hours. They came to put chemical in pool frequently. Seen in urgent care. [place] for ;infected hair follicles with a lotion. Chest rash- pustules drying but scabbed over and he picks at them because they itch. Using triamcinolone but almost out. Between fingers and ankles itch. Had some on upper back is improved. Between fingers is scaly and skin very tough. Chest is still irritated. Ankles improved. No fever or chills. PAST MEDICAL HISTORY: PAST MEDICAL HISTORY Diagnosis Date Ascending aorta dilatation (HCC) Basal cell cancer Decreased peripheral vision of left eye Elevated prostate specific antigen (PSA) Essential hypertension 07/06/2021 GERD (gastroesophageal reflux disease) Gout Jeffry's thyroiditis with thyroid nodules Kidney stones 06/27/2023 Mild left ventricular systolic dysfunction Mild pulmonary [...] ALLERGIES Patient has no known allergies. MEDICATIONS Current Outpatient Medications Medication Sig triamcinolone (KENALOG) 0.025 % cream Apply 1 application to affected area two times a day. fluticasone (FLONASE) 50 mcg/actuation nasal spray Use 2 Sprays in each nostril once daily. Rinse mouth after use. Clobetasol Propionate (TEMOVATE) 0.05 % external solution Apply 1 application to affected area two times a day as needed. For the posterior scalp. tamsulosin (FLOMAX) 0.4 mg Take 1 capsule by mouth daily at bedtime. ketoconazole (NIZORAL) 2 % shampoo Apply to wet hair, lather for 5-10 minutes, and rinse thoroughly. Use 2-3 times weekly or as needed to control symptoms. gabapentin (NEURONTIN) 300 mg capsule TAKE 1 CAPSULE BY MOUTH in evening THEN 2-3 CAPSULES AT bedtime. allopurinol (ZYLOPRIM) 300 mg tablet Take 1 tablet by mouth once daily. Calcipotriene 0.005 % soln Apply to to scalp twice daily. Ipratropium Breeding (ATROVENT) 21 mcg (0.03 %) nasal spray Use 2 Sprays in the nose every 12 hours. levothyroxine (SYNTHROID) 137 mcg tablet Take 1 tablet by mouth once daily. Except none on sundays lisinopril (ZESTRIL) 5 mg tablet Take 1 tablet by mouth once daily. rosuvastatin (CRESTOR) 20 mg tablet Take 1 tablet by mouth daily at bedtime. omega 4-xpz-xif-fish oil (FISH OIL) 100-160-1,000 mg cap Take by mouth once daily. ascorbic acid (SUSAN-C ORAL) Take by mouth once daily. CPAP AutoPAP with humidification set at a range of 5-16 cmH2O. Lifetime supplies. Please fit with dreamwear under nose FFM. Please provide us download after 4 weeks of use. Cholecalciferol, Vitamin D3, 50 mcg (2,000 unit) cap Take 1 capsule by mouth once daily. Current Facility-Administered Medications Medication Dose Route Frequency Aminolevulinic Acid HCl 20 % soln 2 Each 2 Each TOPICAL As Directed FAMILY HISTORY Problem Relation Age of Onset Hypertension Mother Diabetes Mother Prostate Cancer Father Cancer Father Stroke Maternal Grandfather Alcohol/Drug Maternal Grandfather Cancer Paternal Grandmother Social History Tobacco Use Smoking status: Never Smokeless tobacco: Never Vaping Use Vaping status: Never Used Substance Use Topics Alcohol use: Not Currently Drug use: Not Currently Types: Marijuana REVIEW OF SYSTEMS GENERAL: No weight loss, malaise or fevers/chills HEENT: Negative for frequent or significant headaches, No changes in vision. Some hearing loss. NECK: Negative for lumps, goiter, pain and significant neck swelling RESPIRATORY: Negative for cough, hemoptysis, wheezing, + always dyspnea or shortness of breath, adherent to CPAP CARDIOVASCULAR: Negative for chest pain, leg swelling, orthopnea, or palpitations GI: No nausea, vomiting, or diarrhea/constipation . No hematochezia/melena. No heartburn or reflux symptoms. : No history of dysuria, frequency or incontinence MUSCULOSKELETAL: Negati (more content not included)... Normal [facility] Comprehensive metabolic 2000 panelon 02-08-2024 Albumin [Mass/Vol] 4.1 g/dL Normal 3.9-4.9 [facility] Comment on above: Order Comment: Speci men Type: BLOOD SPECIMENOrdering Facility: [facility] Address: [address] [place] [address] Performed By: #### 3 051-0, 76815-2, 3024-7, 3016-3 ####[facility] LABCLIA [id number] [facility] [id number], [place] [address] [place] ALP [Catalytic activity/Vol] 72 U/L Normal 38-113 [facility] Comment on above: Order Comment: Speci men Type: BLOOD SPECIMENOrdering Facility: [facility] Address: [address] [place] [address] Performed By: #### 3 051-0, 93424-3, 3024-7, 3016-3 ####[facility] LABCLIA [id number] [address] [place] ALT [Catalytic activity/Vol] 24 U/L Normal 10-54 [facility] Comment on above: Order Comment: Speci men Type: BLOOD SPECIMENOrdering Facility: [facility] Address: [address] [place] [address] Performed By: #### 3 051-0, 33171-3, 3024-7, 3016-3 ####[facility] LABCLIA [id number] [place] [address] [place] Anion gap [Moles/Vol] 11 mmol/L Normal 8-15 [facility] Comment on above: Order Comment: Speci men Type: BLOOD SPECIMENOrdering Facility: [facility] Address: [address] [place] [address] Performed By: #### 3 051-0, 72913-9, 3024-7, 3016-3 ####[facility]CL[facility] [id number] [address] [place] AST [Catalytic activity/Vol] 20 U/L Normal 14-40 [facility] Comment on above: Order Comment: Speci men Type: BLOOD SPECIMENOrdering Facility: [facility] Address: [address] [place] [address] Performed By: #### 3 051-0, 01901-7, 3024-7, 3016-3 ####[facility] LABCL[facility] [id number] [place] [address] [place] Bilirubin [Mass/Vol] 0.4 mg/dL Normal 0.2-1.3 [facility] Comment on above: Order Comment: Speci men Type: BLOOD SPECIMENOrdering Facility: [facility] Address: [address] [place] [address] Performed By: #### 3 051-0, 67754-6, 3024-7, 3016-3 ####[facility] LABCLIA [id number] [place] [address] [place] Calcium [Mass/Vol] 9.1 mg/dL Normal 8.5-10.2 [facility] Comment on above: Order Comment: Speci men Type: BLOOD SPECIMENOrdering Facility: [facility] Address: [address] [place] [address] Performed By: #### 3 051-0, 18709-0, 3024-7, 3016-3 ####[facility]CLIA [id number] [place] [address] [place] Chloride [Moles/Vol] 106 mmol/L Normal 98-107 [facility] Comment on above: Order Comment: Speci men Type: BLOOD SPECIMENOrdering Facility: [facility] Address: [address] [place] [address] Performed By: #### 3 051-0, 32805-6, 3024-7, 3016-3 ####[facility]CLIA [id number] [place] [address] [place] CO2 [Moles/Vol] 25 mmol/L Normal 22-30 [facility] Comment on above: Order Comment: Speci men Type: BLOOD SPECIMENOrdering Facility: [facility] Address: [address] [place] [address] Performed By: #### 3 051-0, 21853-6, 3024-7, 3016-3 ####[facility] LABCLIA [id number] [place] [address] [place] Creatinine [Mass/Vol] 1.43 mg/dL High 0.73-1.22 [facility] Comment on above: Order Comment: Alysa olivarez Type: BLOOD SPECIMENOrdering Facility: [facility] Address: [address] [place] [address] Performed By: #### 3 051-0, 97086-1, 3024-7, 3016-3 ####[facility] LABCLIA [id number] [place] [address] [place] Creatinine and Glomerular filtration rate.predicted panel (S/P/Bld) 53 mL/min/1.73m??? Low >=60 [facility] Comment on above: Order Comment: Alysa olivarez Type: BLOOD SPECIMENOrdering Facility: [facility] Address: [address] [place] [address] Result Comment: Angie mated Glomerular Filtration Rate (eGFR) is calculated using the 2020 CKD-EPI creatinine equation. This equation utilizes serum creatinine, sex, and age as parameters. The creatinine assay has traceable calibration to isotope dilution-mass spectrometry. Refer to KDIGO guidelines for clinical interpretation. In patients with unstable renal function, e.g. those with acute kidney injury, the eGFR may not accurately reflect actual GFR. Performed By: #### 3 051-0, 09139-0, 3024-7, 6-3 ####[facility] LABCL[facility] [id number] [place] [address] [place] Glucose [Mass/Vol] 103 mg/dL High 74-99 [facility] Comment on above: Order Comment: Alysa olivarez Type: BLOOD SPECIMENOrdering Facility: [facility] Address: [address] [place] [address] Result Comment: The [place] Diabetes Association (ADA) provides guidance for cutoff values for fasting glucose and random glucose. The ADA defines fasting as no caloric intake for at least 8 hours. Fasting plasma glucose results between 100 to 125 mg/dL indicate increased risk for diabetes (prediabetes). Fasting plasma glucose results greater than or equal to 126 mg/dL meet the criteria for diagnosis of diabetes. In the absence of unequivocal hyperglycemia, results should be confirmed by repeat testing. In a patient with classic symptoms of hyperglycemia or hyperglycemic crisis, random plasma glucose results greater than or equal to 200 mg/dL meet the criteria for diagnosis of diabetes. Reference: Standards of Medical Care in Diabetes 2016, [place] Diabetes Association. Diabetes Care. 2016.39(Suppl 1). Performed By: #### 3 051-0, 00356-7, 3024-7, 3016-3 ####[facility]CL[facility] [id number] [place] [address] [place] Potassium [Moles/Vol] 4.6 mmol/L Normal 3.7-5.1 [facility] Comment on above: Order Comment: Speci sher Type: BLOOD SPECIMENOrdering Facility: [facility] Address: [address] [place] [address] Performed By: #### 3 051-0, 72566-5, 4-7, 6-3 ####[facility] LABIA [id number] [place] [address] [place] Protein [Mass/Vol] 6.4 g/dL Normal 6.3-8.0 [facility] Comment on above: Order Comment: Alysa olivarez Type: BLOOD SPECIMENOrdering Facility: [facility] Address: [address] [place] [address] Performed By: #### 3 051-0, 45461-5, 3023-7, 6-3 ####[facility] LABIA [id number] [place] [address] [place] Sodium [Moles/Vol] 142 mmol/L Normal 136-144 [facility] Comment on above: Order Comment: Vannesai men Type: BLOOD SPECIMENOrdering Facility: [facility] Address: [address] [place] [address] Performed By: #### 3 051-0, 60205-1, 3024-7, 3016-3 ####[facility]CL[facility] [id number] [place] [address] [place] Urea nitrogen [Mass/Vol] 31 mg/dL High 9-24 [facility] Comment on above: Order Comment: Speci men Type: BLOOD SPECIMENOrdering Facility: [facility] Address: [address] [place] [address] Performed By: #### 3 051-0, 89889-0, 3023-7, 3016-3 ####[facility]CL[facility] [id number] [place] [address] [place] T3Free SerPl-mCncon 02-08-20 24 Free T3 [Mass/Vol] 2.5 pg/mL Normal 2.3-4.1 [facility] Comment on above: Order Comment: Speci men Type: BLOOD SPECIMENOrdering Facility: [facility] Address: [address] [place] [address] Performed By: #### 3 051-0, 21547-6, 7, 6-3 ####[facility] LABIA [id number] [place] [address] [place] T4 Free SerPl-mCncon 024 Free T4 [Mass/Vol] 1.1 ng/dL Normal 0.9-1.7 [facility] Comment on above: Order Comment: Speci men Type: BLOOD SPECIMENOrdering Facility: [facility] Address: [address] [place] [address] Performed By: #### 3 051-0, 99395-7, 7, 3016-3 ####[facility] LABIA [id number] [place] [address] [place] TSH SerPl-aCncon 02-08-2024 TSH Qn 2.990 m[IU]/L Normal 0.270-4.200 [facility] Comment on above: Order Comment: Speci men Type: BLOOD SPECIMENOrdering Facility: [facility] Address: [address] [place] [address] Performed By: #### 3 051-0, 77849-1, 3024-7, 3016-3 ####[facility]CL[facility] [id number] [place] [address] [place] Thyroglobulin and Thyrogobul in Ab panelon 02-08-2024 Thyroglobulin Ab Qn [IU]/mL Normal <4.[address] [facility] Comment on above: Order Comment: Alysa olivarez Type: BLOOD SPECIMENOrdering Facility: [facility] Address: [address] [place] [address] Result Comment: The Thyroglobulin Antibody test was performed using the [employer] DXI paramagnetic particle chemiluminescent immunoassay method. Results obtained with different assay methods or kits cannot be used interchangeably. Performed By: #### 5 7780-9 ####[facility]CL[facility] [id number] [place] [address] [place] THYROGLOBULIN, SERUM 0.1 ng/mL Low 1.6-50.0 [facility] Comment on above: Order Comment: Alysa olivarez Type: BLOOD SPECIMENOrdering Facility: [facility] Address: [address] [place] [address] Result Comment: The Thyroglobulin test was performed using the [employer] DXI paramagnetic particle chemiluminescent immunoassay method. Results obtained with different assay methods or kits cannot be used interchangeably. Performed By: #### 5 7780-9 ####[facility] LABIA [id number] [address] [place] CNOVon 02-06-2024 CNOV Office Visit (JUAN JOSEST ) LYNN SCHREIBER ([id number]) 1955 M NFR Date Time Provider Department 02/06/24 4:30 PM ALDA SKY During your visit today, we recorded the following information about you: Alda Sky APRN.CNP 02/15/2024 7:13 AM Signed Department of Dermatology Alda Sky APRN.CNP Last visit in Dermatology: 01/02/2024 Objective/Assessment/ Plan 1. Scar Left Nasal Sidewall One small slightly hypopigmented scarred macule Observational course. Monitor for growth and changes. 2. AK (actinic keratosis) Mid Forehead Erythematous, hyperkeratotic papule CRYOTHERAPY SKIN LESION - Mid Forehead Complexity: simple Destruction method: cryotherapy Informed consent: discussed and consent obtained Timeout: patient name, date of , surgical site, and procedure verified Lesion destroyed using liquid nitrogen: Yes Cryotherapy cycles: 2 Outcome: patient tolerated procedure well with no complications Post-procedure details: wound care instructions given Additional details: Actinic keratosis - Discussed premalignant etiology - Discussed risks and benefits of treatment options including cryotherapy vs Efudex 5% vs. Photodynamic Therapy (PDT). - Given recommend local therapy with cryotherapy. - Patient elects for treatment with Cryotherapy: Risks, benefits, alternatives, complications, and personnel required for cryosurgery were reviewed with the patient. Specifically, the risks of permanent scarring, loss or darkening of skin color, blister, incomplete treatment, and recurrence of the lesion were discussed. The patient verbalizes understanding and wishes to proceed. - Cryosurgery performed with Liquid Nitrogen via cryostat spray gun to Actinic Keratosis . - Patient tolerated well and wound care was discussed. Return if lesions fail to fully resolve. Follow-up as noted below or as needed. --- Chief Complaint: Patient presents with: LESION, SKIN Subjective and Objective HPI: Lynn Schreiber is a 68 year old male who presents for: Recheck lesion on left nasal sidewall. Patient has been applying aquaphor daily. He states it has improved. Doesn't bleed or tingle any more. Skin appears to be well healed s/p mohs. Past medical history is reviewed. Medication list is reviewed. Physical Exam included: Face Intake information obtained by FANTASMA Black APRN.[place] Sky, Alda, 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 02/06/2024 4:55 PM Signed SKIN CARE AFTER CRYOSURGERY The skin's response to cryosurgery (freezing) can be mild to severe, depending on the depth of the freeze and location of the area treated. You may have minimal redness and swelling with little discomfort or significant discoloration and blistering with considerable discomfort. A burning sensation in the skin may last from several minutes to several hours after the procedure. Follow these instructions when caring for an area treated by cryosurgery: 1. Please clean the area every day with gentle soap and water. It is not necessary to cover the site with a bandage. However, it may be used for protection and it must be changed daily. Do not leave a soiled or wet bandage on the wound. 2. If you are experiencing discomfort you may use a cool compress, elevate the area or take over the counter pain relievers. 3. Apply Vaseline or Aquaphor daily to the site. This can help with itching, irritation, and discomfort. -The lesion may take 2-4 weeks to fully resolve. Depending on the severity of treatment and lesion treated, it may take longer. -DO NOT USE NEOSPORIN OR BACITRACIN as there is a fairly high incidence of allergic response to these products. -You may experience some mild discomfort, redness, swelling, and/or a clear discharge from the wound after your procedure. Severe pain, worsening swelling, and foul-smelling discharge from the site are NOT to be expected. If you have concerns about how your wounds are healing, please send your provider a [email or web address] message or call . Allergies As of Date: 02/06/2024 (No Known Allergies) Date Reviewed: 02/06/2024 Reviewed by: Kelsie Ogden MA - Fully Assessed Reason for Visit: LESION, SKIN [936] Primary Visit Diagnosis:Scar [L90.5] Other Visit Diagnosis:AK (actinic keratosis) [L57.0] Order(s):CRYOTHERAPY SKIN LESION [5012374] Order #: [id number]: 1 Prescriptions as of 02/15/2024 - triamcinolone (KENALOG) 0.025 % cream Apply 1 application to affected area two times a day. - benzonatate (TESSALON PERLE) 100 mg capsule Take 2 capsules by mouth three times a day as needed. - fluticasone (FLONASE) 50 mcg/actuation nasal spray Use 2 Sprays in each nostril once daily. Rinse mouth after use. - Clobetasol Propionate (TEMOVATE) 0.05 % external solution Apply 1 application to affected area (more content not included)... Normal [facility] CRYOTHERAPY SKIN LESIONon Complexity: simple Destruction method: cryotherapy Informed consent: discussed and consent obtained Timeout: patient name, date of , surgical site, and procedure verified Lesion destroyed using liquid nitrogen: Yes Cryotherapy cycles: 2 Outcome: patient tolerated procedure well with no complications Post-procedure details: wound care instructions given Additional details: Actinic keratosis - Discussed premalignant etiology - Discussed risks and benefits of treatment options including cryotherapy vs Efudex 5% vs. Photodynamic Therapy (PDT). - Given recommend local therapy with cryotherapy. - Patient elects for treatment with Cryotherapy: Risks, benefits, alternatives, complications, and personnel required for cryosurgery were reviewed with the patient. Specifically, the risks of permanent scarring, loss or darkening of skin color, blister, incomplete treatment, and recurrence of the lesion were discussed. The patient verbalizes understanding and wishes to proceed. - Cryosurgery performed with Liquid Nitrogen via cryostat spray gun to Actinic Keratosis . - Patient tolerated well and wound care was discussed. Return if lesions fail to fully resolve. [facility] CNOVon 02-02-2024 CNOV Office Visit (UCWSTR ) LYNN SCHREIBER ([id number]) 1955 M NFR Date Time Provider Department 02/02/24 7:30 AM AMELIA DOMINGO [facility] During your visit today, we recorded the following information about you: Temperature Pulse Respiration Blood pressure 97.8 degrees 57/minute 18/minute 135/77 Weight 121.3 kg Amelia Domingo APRN.[employer] 02/02/2024 7:41 AM Signed Subjective Rash Pertinent negatives include no congestion, cough, fever or sore throat. Lynn Schreiber is a 68 year old male who presents with a rash on his chest and abdomen for the past 3 days. States it is itchy. Not painful. No fever or associated URI symptoms. He has not used any medication on it at home. Recently returned from vacation in [place] where he was in the pool for 7 hours a day. States it was 118 degrees there. Review of Systems Constitutional: Negative for chills and fever. HENT: Negative for congestion and sore throat. Respiratory: Negative for cough. Cardiovascular: Negative. Musculoskeletal: Negative for myalgias. Skin: Positive for itching and rash. BP 135/77 Pulse (!) 57 Temp 36.6 ?C (97.8 ?F) Resp 18 Wt 121.3 kg (267 lb 6.7 oz) SpO2 97% BMI 37.30 kg/m? PAST MEDICAL HISTORY No date: Ascending aorta dilatation (HCC) No date: Basal cell cancer No date: Decreased peripheral vision of left eye No date: Elevated prostate specific antigen (PSA) 07/06/2021: Essential hypertension No date: GERD (gastroesophageal reflux disease) No date: Gout No date: Jeffry's thyroiditis Comment: with thyroid nodules 06/27/2023: Kidney stones No date: Mild left ventricular systolic dysfunction No date: Mild pulmonary hypertension (HCC) 11/16/2015: Mixed hyperlipidemia No date: Obesity 10/20/2020: MAXIMILIAN (obstructive sleep apnea) No date: Osteoarthritis No date: Sinus bradycardia PAST SURGICAL HISTORY 04-04-14: COLONOSCOPY Comment: repeat in 10 yrs 12-23-10: INT REPAIR SCALP,SYDNI,TRUNK <2.5CM No date: PAST SURGICAL HISTORY OF Comment: left knee No date: PAST SURGICAL HISTORY OF Comment: right hammer toe No date: PAST SURGICAL HISTORY OF Comment: left hammer toe 12-23-10: REM LESION TRUNK,ARM, LEG <0.5 CM 12-23-10: THYROIDECTOMY TOTAL/COMPLETE ALLERGIES Patient has no known allergies. MEDICATIONS cephALEXin (KEFLEX) 500 mg capsuleTake 1 capsule by mouth three times a day for 7 days.Disp: 21 capsuleRfl: 0 predniSONE (DELTASONE) 20 mg tabletTake 2 tablets by mouth once daily for 4 days. Take daily with food.Disp: 8 tabletRfl: 0 triamcinolone (KENALOG) 0.025 % creamApply 1 application to affected area two times a day.Disp: 90 gRfl: 0 benzonatate (TESSALON PERLE) 100 mg capsuleTake 2 capsules by mouth three times a day as needed.Disp: 30 capsuleRfl: 0 (Patient not taking: Reported on 02/02/2024) fluticasone (FLONASE) 50 mcg/actuation nasal sprayUse 2 Sprays in each nostril once daily. Rinse mouth after use.Disp: 1 EachRfl: 0 Clobetasol Propionate (TEMOVATE) 0.05 % external solutionApply 1 application to affected area two times a day as needed. For the posterior scalp.Disp: 50 mLRfl: 2 tamsulosin (FLOMAX) 0.4 mgTake 1 capsule by mouth daily at bedtime.Disp: 90 capsuleRfl: 0 ketoconazole (NIZORAL) 2 % shampooApply to wet hair, lather for 5-10 minutes, and rinse thoroughly. Use 2-3 times weekly or as needed to control symptoms.Disp: 120 mLRfl: 5 gabapentin (NEURONTIN) 300 mg capsuleTAKE 1 CAPSULE BY MOUTH in evening THEN 2-3 CAPSULES AT bedtime.Disp: 360 capsuleRfl: 0 allopurinol (ZYLOPRIM) 300 mg tabletTake 1 tablet by mouth once daily.Disp: 90 tabletRfl: 3 Calcipotriene 0.005 % solnApply to to scalp twice daily.Disp: 60 mLRfl: 3 Ipratropium Breeding (ATROVENT) 21 mcg (0.03 %) nasal sprayUse 2 Sprays in the nose every 12 hours.Disp: 3.5 mLRfl: 5 levothyroxine (SYNTHROID) 137 mcg tabletTake 1 tablet by mouth once daily. Except none on sundaysDisp: 90 tabletRfl: 4 lisinopril (ZESTRIL) 5 mg tabletTake 1 tablet by mouth once daily.Disp: 90 tabletRfl: 3 rosuvastatin (CRESTOR) 20 mg tabletTake 1 tablet by mouth daily at bedtime.Disp: 90 tabletRfl: 3 omega 0-gki-xvs-fish oil (FISH OIL) 100-160-1,000 mg capTake by mouth once daily.Disp: Rfl: ascorbic acid (SUSAN-C ORAL)Take by mouth once daily.Disp: Rfl: CPAPAutoPAP with humidification set at a [...] History Tobacco Use Smoking status: Never Smokeless (more content not included)... Normal [facility] Basic Metabolic Profile (BMP )on 10-16-2023 BUN/CRE 7.7 RATIO Low 10-20 [facility] Comment on above: Performed By: #### L 501.9520, L500.2500 #### [facility] [address] [place], [address] CA,Total 9.1 mg/dL Normal 8.5-10.1 [facility] Comment on above: Performed By: #### L 501.9520, L500.2500 #### [facility] [address] [place], [address] Chloride [Moles/Vol] 108 mmol/L High 98-107 [facility] Comment on above: Performed By: #### L 501.9520, L500.2500 #### [facility] [address] [place], [address] CO2 [Moles/Vol] 25.0 mmol/L Normal 21.0-32.0 [facility] Comment on above: Performed By: #### L 501.9520, L500.2500 #### [facility] [address] [place], [address] Creatinine [Mass/Vol] 2.33 mg/dL High 0.70-1.[address] [facility] Comment on above: Result Comment: The validity of the calculated GFR GFRAA in patients over 70 years has not been determined. Clinical correlation is essential. Performed By: #### L 501.9520, L500.2500 #### [facility] [address] [place], [address] ECRCL 39.60 ml/min Normal [facility] Comment on above: Performed By: #### L 501.9520, L500.2500 #### [facility] [address] [place], [address] EST GFR - AA 36 mL/min Low >60 [facility] Comment on above: Result Comment: Afri can Serbian GFR Calc Performed By: #### L 501.9520, L500.2500 #### [facility] [address] [place], [address] GAP 5 Normal 5-15 [facility] Comment on above: Performed By: #### L 501.9520, L500.2500 #### [facility] [address] [place], [address] GFR/1.73 sq M.predicted among non-blacks MDRD (S/P/Bld) [Vol rate/Area] 30 mL/min/{1.73_m2} Low >60 [facility] Comment on above: Result Comment: Non- GFR Calc Performed By: #### L 501.9520, L500.2500 #### [facility] [address] [place], [address] Glucose [Mass/Vol] 116 mg/dL High 74-106 [facility] Comment on above: Result Comment: Fast ing Glucose result from 100 to 125 mg/dL suggests IMPAIRED HOMEOSTASIS per A.D.A. criteria. Performed By: #### L 501.9520, L500.2500 #### [facility] [address] [place], [address] Potassium [Moles/Vol] 4.1 mmol/L Normal 3.5-5.[address] [facility] Comment on above: Performed By: #### L 501.9520, L500.2500 #### [facility] [address] [place], [address] Sodium [Moles/Vol] 138 mmol/L Normal 136-145 [facility] Comment on above: Performed By: #### L 501.9520, L500.2500 #### [facility] [address] [place], [address] Urea nitrogen [Mass/Vol] 18 mg/dL Normal 7-18 [facility] Comment on above: Performed By: #### L 501.9520, L500.2500 #### [facility] [address] [place], [address] Basophil percentageOrdered B y: Glenroy Hardin on 10-16-2023 Chloride [Moles/Vol] 108 mmol/L 98-107 [facility] Glucose [Mass/Vol] 116 mg/dL 74-106 [facility] Comment on above: Fasting Glucose resu lt from 100 to 125 mg/dL suggests IMPAIRED HOMEOSTASIS per A.D.A. criteria. Hemoglobin (Bld) [Mass/Vol] 11.0 g/dL 13.0-16.5 [facility] Potassium [Moles/Vol] 4.1 mmol/L 3.5-5.[address] [facility] Sodium [Moles/Vol] 138 mmol/L 136-145 [facility] WBC (Bld) [#/Vol] 8.5 10*3/uL 4.4-11.0 [facility] CBC-Complete Blood Cnt No Di ffon 10-16-2023 Erythrocyte distribution width (RBC) [Ratio] 13.6 % Normal 11.6-14.6 [facility] Comment on above: Performed By: #### L 100.0100, L500.2500 #### [facility] [address] [place], [address] Hematocrit (Bld) [Volume fraction] 34.2 % Low 40-54 [facility] Comment on above: Performed By: #### L 100.0100, L500.2500 #### [facility] [address] [place], [address] Hemoglobin (Bld) [Mass/Vol] 11.0 g/dL Low 13.0-16.5 [facility] Comment on above: Performed By: #### L 100.0100, L500.2500 #### [facility] [address] [place], [address] MCH (RBC) [Entitic mass] 28.9 pg Normal 27.0-32.0 [facility] Comment on above: Performed By: #### L 100.0100, L500.2500 #### [facility] [address] [place], [address] MCHC (RBC) [Mass/Vol] 32.2 g/dL Normal 32-[address] [facility] Comment on above: Performed By: #### L 100.0100, L500.2500 #### [facility] [address] [place], [address] MCV (RBC) [Entitic vol] 89.8 fL Normal 80-94 [facility] Comment on above: Performed By: #### L 100.0100, L500.2500 #### [facility] [address] [place], [address] Platelet mean volume (Bld) [Entitic vol] 10.5 fL Normal 6.2-12.0 [facility] Comment on above: Performed By: #### L 100.0100, L500.2500 #### [facility] [address] [place], [address] Platelets (Bld) [#/Vol] 191 10*3/uL Normal 150-450 [facility] Comment on above: Performed By: #### L 100.0100, L500.2500 #### [facility] [address] [place], [address] RBC (Bld) [#/Vol] 3.81 10*6/uL Low 4.6-6.2 [facility] Comment on above: Performed By: #### L 100.0100, L500.2500 #### [facility] [address] [place], [address] RDW SD 44.4 fl High 35.1-43.9 [facility] Comment on above: Performed By: #### L 100.0100, L500.2500 #### [facility] [address] [place], [address] WBC (Bld) [#/Vol] 8.5 10*3/uL Normal 4.4-11.0 [facility] Comment on above: Performed By: #### L 100.0100, L500.2500 #### [facility] [address] [place], [address] Determination of erythrocyte mean corpuscular volume (MCV)Ordered By: Glenroy Hardin on 10-16-2023 MCV (RBC) [Entitic vol] 89.8 fL 80-94 [facility] Erythrocyte distribution wid th ratioOrdered By: Glenroy Hardin on 10-16-2023 Erythrocyte distribution width (RBC) [Ratio] 13.6 % 11.6-14.6 [facility] Erythrocyte distribution wid th standard deviationOrdered By: Glenroy Hardin on 10-16-2023 Erythrocyte distribution width (RBC) [Entitic vol] 44.4 fL 35.1-43.9 [facility] Hematocrit Auto (Bld) [Volum e fraction]Ordered By: Glenroy Hardin on 10-16-2023 Hematocrit (Bld) [Volume fraction] 34.2 % 40-54 [facility] - Chemistry and C hemistry - challengeOrdered By: Glenroy Hardin on 10-16-2023 CO2 [Moles/Vol] 25.0 mmol/L 21.0-32.0 [facility] Urea nitrogen/Creatinine [Mass ratio] 7.7 mg/mg 10-20 [facility] - Hematology and Cell countsOrdered By: Glenroy Hardin on 10-16-2023 MCH (RBC) [Entitic mass] 28.9 pg 27.0-32.0 [facility] MCHC (RBC) [Mass/Vol] 32.2 g/dL 32-[address] [facility] Platelet mean volume (Bld) [Entitic vol] 10.5 fL 6.2-12.0 [facility] Platelets (Bld) [#/Vol] 191 10*3/uL 150-450 [facility] No Panel InformationOrdered By: Glenroy Hardin on 10-16-2023 Estimated Creatinine Clearance Calc 39.60 ml/min [facility] Estimated GFR (MDRD) Amer 36 mL/min >60 [facility] Comment on above: GFR Calc Estimated GFR (MDRD) Non-Af Amer 30 mL/min >60 [facility] Comment on above: Non- GFR Calc Operative Reporton Operative Report [facility] Medical Records Department [address] [place] [address] Operative Report 10/16/23 1232 MR#: [id number] Acct: [id number] Name: LYNN SCHREIBER ADALBERTO Rep #: [id number] : 1955 68 From: David Weeks MD PCP: Dr. Anthony Solano MD Status:ADM EDMOND Location: [place] [address] Report of Operation Date of Procedure: 10/16/23 Pre-Operative Diagnosis: Left obstructing renal calculi Post-Operative Diagnosis: The same Surgery/Procedure Performed:: Cystoscopy, balloon dilation of the left ureter, left ureteroscopy laser lithotripsy of stone, left retrograde pyelogram and left stent placement Description of Surgical Findings:: This is a patient who presents to the hospital for treatment for an obstructing ureter calculi. I discussed with the patient how the surgery would be performed and we reviewed the risks and benefits of the surgery. The risk and benefits include the risk of failure to remove the stone completely and that the patient may need multiple procedures. We discussed the risk of an infection, the risk of bleeding. We discussed the very rare risk of serious complicated injury to the ureter. The patient understands that if the stone is not able to be removed safely that we may abort the procedure and place a stent. After full discussion and all questions address with the patient the consent form was signed the side was marked appropriately and the patient was taken back to the operating room for the procedure. The patient was taken back to the operating room. After induction of anesthesia by the anesthesiology team the patient was placed in dorsolithotomy position. The genitals were prepped and draped in usual sterile fashion. I went into the bladder with a 21 Malian rigid cystourethroscope through the urethra. Upon entering the bladder I inspected the trigone the left and right ureteral orifice and the bladder itself. I then cannulated the Left ureteral orifice and advanced a 0.038 Glidewire up into the kidney. Then over the Glidewire I advanced a 5 Fr Ureteral catheter and performed a retrograde pyelogram with about 10cc of contrast, to delineate the anatomy and identify the stone location. Then a ureteral balloon dilator was advanced over the wire and the distal ureter was balloon dilated with a 12 Fr x 5cm balloon dilator. After 3 minutes of dilating the ureter the balloon was backloaded off the 0.038 glidewire over the 0.038 guidewire I went in with the flexible 7.5fr ureteroscope. I was able to go inside with the 7.5Fr utereroscope and I pulled out the guidewire and then through the ureteroscope I engage the stone with laser lithotripsy using a 270miron laser fiber with energy setting of 6 Hertz and 0.6 J until the stone was lasered into tiny little pieces that should pass on their own. A retrograde pyelogram was performed with 10cc of contrast and no extravasation of contrast or perforation was identified in the ureter there was some mild irritation of the ureter where the stone was located. I then backed out of the ureter left the wire in place and then over the 0.038 guidewire I placed a double coiled pigtail ureteral stent. The ureteral stent was advanced over the 0.038 guidewire under direct fluoroscopic guidance and direct cystoscopic visual guidance, once the stent was in good position I pulled the wire and the stent coiled in the kidney and bladder in good position. I then drained the patient's bladder and the cystoscope was removed and the patient was taken back to the recovery room in good position. The patient was given discharge instructions to call the office for instructions on when to come to the office to have the stent removed. Surgeon: David Weeks Drains: stent Admit VTE Documentation VTE Present on Admission: No VTE Mechan Device Prophylaxis: SCD's 10/16/23 1233 Cosigner Signature (if applicable): CC: Dr. David Weeks MD; Dr. Anthony Solano MD Signed Normal [facility] RBC Auto (Bld) [#/Vol]Ordere d By: Glenroy Hardin on 10-16-2023 RBC (Bld) [#/Vol] 3.81 10*6/uL 4.6-6.2 [facility] Serum or plasma calcium hiral urement (mass/volume)Ordered By: Glenroy Hardin on 10-16-2023 Calcium [Mass/Vol] 9.1 mg/dL 8.5-10.1 [facility] Serum or plasma creatinine m easurement (mass/volume)Ordered By: Glenroy Hardin on 10-16-2023 Creatinine [Mass/Vol] 2.33 mg/dL 0.70-1.[address] [facility] Comment on above: The validity of the calculated GFR & GFRAA in patients over 70 years has not been determined. Clinical correlation is essential. Serum or plasma thyroid stim ulating hormone (TSH) measurement (units/volume)Ordered By: Glenroy Hardin on 10-16-2023 TSH Qn 0.42 uIU/mL 0.358-3.74 [facility] Serum or plasma urea nitroge n measurement (mass/volume)Ordered By: Glenroy Hardin on 10-16-2023 Urea nitrogen [Mass/Vol] 18 mg/dL 7-18 [facility] Thin prep Papanicolaou smear with manual screeningOrdered By: Glenroy Hardin on 10-16-2023 Thin prep Papanicolaou smear with manual screening 5 5-15 [facility] Thyroid Stim Hormone (TSH)on 10-16-2023 TSH 0.42 uIU/mL Normal 0.358-3.74 [facility] Comment on above: Performed By: #### L 100.0100, L500.2500 #### [facility] [address] [place] [address]. [place], [place], [id number] Absolute lymphocyte countOrd ered By: Heron Rodriguez on 10-15-2023 Lymphocytes Auto (Unsp spec) [#/Vol] 0.94 10*3/uL 0.83-4.51 [facility] Automated lymphocyte count a s percentage of total leukocytesOrdered By: Heron Rodriguez on 10-15-2023 Lymphocytes/100 WBC Auto (Unsp spec) 12.1 % 19-41 [facility] Basic Metabolic Profile (BMP )on 10-15-2023 BUN/CRE 10.5 RATIO Normal 10-20 [facility] Comment on above: Performed By: #### L 100.0100, L500.2500 #### [facility] [address] [place], [address] CA,Total 9.0 mg/dL Normal 8.5-10.1 [facility] Comment on above: Performed By: #### L 100.0100, L500.2500 #### [facility] [address] [place], [address] Chloride [Moles/Vol] 109 mmol/L High 98-107 [facility] Comment on above: Performed By: #### L 100.0100, L500.2500 #### [facility] [address] [place], [address] CO2 [Moles/Vol] 26.0 mmol/L Normal 21.0-32.0 [facility] Comment on above: Performed By: #### L 100.0100, L500.2500 #### [facility] [address] [place], [address] Creatinine [Mass/Vol] 2.10 mg/dL High 0.70-1.[address] [facility] Comment on above: Result Comment: The validity of the calculated GFR GFRAA in patients over 70 years has not been determined. Clinical correlation is essential. Performed By: #### L 100.0100, L500.2500 #### [facility] [address] [place], [address] ECRCL 43.87 ml/min Normal [facility] Comment on above: Performed By: #### L 100.0100, L500.2500 #### [facility] [address] [place], [address] EST GFR - AA 40 mL/min Low >60 [facility] Comment on above: Result Comment: Afri can Serbian GFR Calc Performed By: #### L 100.0100, L500.2500 #### [facility] [address] [place], [address] GAP 4 Low 5-15 [facility] Comment on above: Performed By: #### L 100.0100, L500.2500 #### [facility] [address] [place], [address] GFR/1.73 sq M.predicted among non-blacks MDRD (S/P/Bld) [Vol rate/Area] 33 mL/min/{1.73_m2} Low >60 [facility] Comment on above: Result Comment: Non- GFR Calc Performed By: #### L 100.0100, L500.2500 #### [facility] [address] [place], [address] Glucose [Mass/Vol] 107 mg/dL High 74-106 [facility] Comment on above: Result Comment: Fast ing Glucose result from 100 to 125 mg/dL suggests IMPAIRED HOMEOSTASIS per A.D.A. criteria. Performed By: #### L 100.0100, L500.2500 #### [facility] [address] [place], [address] Potassium [Moles/Vol] 4.5 mmol/L Normal 3.5-5.[address] [facility] Comment on above: Performed By: #### L 100.0100, L500.2500 #### [facility] [address] [place], [address] Sodium [Moles/Vol] 139 mmol/L Normal 136-145 [facility] Comment on above: Performed By: #### L 100.0100, L500.2500 #### [facility] [address] [place], [address] Urea nitrogen [Mass/Vol] 22 mg/dL High 7-18 [facility] Comment on above: Performed By: #### L 100.0100, L500.2500 #### [facility] [address] [place], [address] Basophil percentageOrdered B y: Heron Rodriguez on 10-15-2023 Basophil percentage 0 SEEN /hpf 0-5 [facility] Basophils/100 WBC (Bld) 0.5 % 0-1 [facility] Chloride [Moles/Vol] 109 mmol/L 98-107 [facility] Eosinophils/100 WBC (Bld) 4.3 % 0-5 [facility] Glucose [Mass/Vol] 107 mg/dL 74-106 [facility] Comment on above: Fasting Glucose resu lt from 100 to 125 mg/dL suggests IMPAIRED HOMEOSTASIS per A.D.A. criteria. Hemoglobin (Bld) [Mass/Vol] 11.5 g/dL 13.0-16.5 [facility] Monocytes/100 WBC (Bld) 6.3 % 0-10 [facility] Neutrophils (Bld) [#/Vol] 5.9 10*3/uL 2.0-7.7 [facility] [facility] Neutrophils/100 WBC (Bld) 76.7 % 47-70 [facility] Potassium [Moles/Vol] 4.5 mmol/L 3.5-5.[address] [facility] Sodium [Moles/Vol] 139 mmol/L 136-145 [facility] WBC (Bld) [#/Vol] 7.8 10*3/uL 4.4-11.0 [facility] Bilirubin Test strip Ql (U)O rdered By: Heron Rodriguez on 10-15-2023 Bilirubin Ql (U) Negative Negative [facility] CBC W/Diff, Automatedon 10-03 Absolute Lymph 0.94 X10 3/uL Normal 0.83-4.51 [facility] Comment on above: Performed By: #### L 100.0100, L500.2500 #### [facility] [address] [place], [address] Absolute Neut 5.9 X10 3/uL Normal 2.0-7.7 [facility] Comment on above: Performed By: #### L 100.0100, L500.2500 #### [facility] [address] [place], [address] Basophils/100 WBC (Bld) 0.5 % Normal 0-1 [facility] Comment on above: Performed By: #### L 100.0100, L500.2500 #### [facility] [address] [place], [address] Eosinophils/100 WBC (Bld) 4.3 % Normal 0-5 [facility] Comment on above: Performed By: #### L 100.0100, L500.2500 #### [facility] [address] [place], [address] Erythrocyte distribution width (RBC) [Ratio] 13.8 % Normal 11.6-14.6 [facility] Comment on above: Performed By: #### L 100.0100, L500.2500 #### [facility] [address] [place], [address] Hematocrit (Bld) [Volume fraction] 35.2 % Low 40-54 [facility] Comment on above: Performed By: #### L 100.0100, L500.2500 #### [facility] [address] [place], [address] Hemoglobin (Bld) [Mass/Vol] 11.5 g/dL Low 13.0-16.5 [facility] Comment on above: Performed By: #### L 100.0100, L500.2500 #### [facility] [address] [place], [address] IG% 0.100 Normal 0.0-0.9 [facility] Comment on above: Result Comment: IG% - Immature Granulocytes (promyelocytes, myelocytes and metamyelocytes) > 1% indicates that a LEFT SHIFT is Present. Performed By: #### L 100.0100, L500.2500 #### [facility] [address] [place], [address] Lymphocytes/100 WBC (Bld) 12.1 % Low 19-41 [facility] Comment on above: Performed By: #### L 100.0100, L500.2500 #### [facility] [address] [place], [address] MCH (RBC) [Entitic mass] 29.3 pg Normal 27.0-32.0 [facility] Comment on above: Performed By: #### L 100.0100, L500.2500 #### [facility] [address] [place], [address] MCHC (RBC) [Mass/Vol] 32.7 g/dL Normal 32-[address] [facility] Comment on above: Performed By: #### L 100.0100, L500.2500 #### [facility] [address] [place], [address] MCV (RBC) [Entitic vol] 89.8 fL Normal 80-94 [facility] Comment on above: Performed By: #### L 100.0100, L500.2500 #### [facility] [address] [place], [address] Monocytes/100 WBC (Bld) 6.3 % Normal 0-10 [facility] Comment on above: Performed By: #### L 100.0100, L500.2500 #### [facility] [address] [place], [address] Neutrophils/100 WBC (Bld) 76.7 % High 47-70 [facility] Comment on above: Performed By: #### L 100.0100, L500.2500 #### [facility] [address] [place], [address] Nucleated RBC (Bld) [#/Vol] 0 10*3/uL Normal 0-5 [facility] Comment on above: Performed By: #### L 100.0100, L500.2500 #### [facility] [address] [place], [address] Platelet mean volume (Bld) [Entitic vol] 10.1 fL Normal 6.2-12.0 [facility] Comment on above: Performed By: #### L 100.0100, L500.2500 #### [facility] [address] [place], [address] Platelets (Bld) [#/Vol] 199 10*3/uL Normal 150-450 [facility] Comment on above: Performed By: #### L 100.0100, L500.2500 #### [facility] [address] [place], [address] RBC (Bld) [#/Vol] 3.92 10*6/uL Low 4.6-6.2 [facility] Comment on above: Performed By: #### L 100.0100, L500.2500 #### [facility] [address] [place], [address] RDW SD 45.6 fl High 35.1-43.9 [facility] Comment on above: Performed By: #### L 100.0100, L500.2500 #### [facility] [address] [place], [address] WBC (Bld) [#/Vol] 7.8 10*3/uL Normal 4.4-11.0 [facility] Comment on above: Performed By: #### L 100.0100, L500.2500 #### [facility] [address] [place], [address] Determination of erythrocyte mean corpuscular volume (MCV)Ordered By: Heron Rodriguez on 10-15-2023 MCV (RBC) [Entitic vol] 89.8 fL 80-94 [facility] Discharge Instructionon 10-03 Discharge Instruction [facility] Medical Records Department [address] [place] [address] Instructions for Home/Discharge Instructions 10/15/23 1721 MR#: [id number] Acct: [id number] Name: LYNN SCHREIBERN Rep #: [id number] : 1955 68 From: David Weeks MD PCP: Dr. Anthony Solano MD Status:ADM EDMOND Discharge Instructions Diet Discharge Diet: No restrictions Activity Discharge Activity: Return to Normal Activity and May Not Drive (while taking narcotic pain medications.) Dressing / Incision Call your doctor if you observe: Fever of 101 or Higher Follow Up Care Please Follow Up With: David Weeks MD When: Call [phone] for an appointment. Test Results: Test results from this visit will be discussed in further detail at your follow-up appointment, if applicable. Discharge Plan Admission Admit Date/Time: 10/15/23 05:56 Primary Reason for Your Visit: Kidney stone Attending Provider: David Weeks Primary Care Provider: Anthony Solano Discharge Orders/Prescriptions Prescriptions: New ciprofloxacin HCl [Cipro] 500 mg tablet 500 mg PO BID Qty: 10 0RF Continued levothyroxine 137 mcg tablet 137 mcg PO MOTUWETHFRSA gabapentin 300 mg capsule 300 mg PO QHS lisinopril 5 mg tablet 5 mg PO DAILY rosuvastatin 20 mg tablet 20 mg PO QHS tamsulosin [Flomax] 0.4 mg capsule 0.4 mg PO DAILY PRN (Reason: urination) allopurinol 300 mg tablet 300 mg PO DAILY hydrocodone-acetamino phen 5-325 mg tablet 1 tab PO Q6H PRN PRN (Reason: Pain) 3 Days Qty: 10 0RF ibuprofen 400 mg tablet 400 mg PO Q8H PRN (Reason: pain) Qty: 14 0RF ondansetron 4 mg tablet,disintegrating 4 mg PO Q8H PRN PRN (Reason: Nausea) Qty: 10 0RF Referrals / Follow Up: David Weeks MD [Med Staff - Active Staff] - Anthony Solano MD [Primary Care Provider] - Disposition Disposition (needs filled in before D/C Order can be placed): Home, Self Care 10/15/23 1722 David Weeks MD CC: Dr. Anthony Solano MD Signed Normal [facility] Erythrocyte distribution wid th ratioOrdered By: Heron Rodriguez on 10-15-2023 Erythrocyte distribution width (RBC) [Ratio] 13.8 % 11.6-14.6 [facility] Erythrocyte distribution wid th standard deviationOrdered By: Heronswathi Rodriguez on 10-15-2023 Erythrocyte distribution width (RBC) [Entitic vol] 45.6 fL 35.1-43.9 [facility] Hematocrit Auto (Bld) [Volum e fraction]Ordered By: Heron Rodriguez on 10-15-2023 Hematocrit (Bld) [Volume fraction] 35.2 % 40-54 [facility] Immature granulocytes/100 WB C Auto (Bld)Ordered By: Heron Rodriguez on 10-15-2023 Immature granulocytes/100 WBC (Bld) 0.100 % 0.0-0.9 [facility] Comment on above: IG% - Immature Granu locytes (promyelocytes, myelocytes and metamyelocytes) > 1% indicates that a LEFT SHIFT is Present. Ketones Test strip Ql (U)Ord ered By: Heron Rodriguez on 10-15-2023 Ketones Ql (U) Negative Negative [facility] - Chemistry and C hemistry - challengeOrdered By: Heron Rodriguez on 10-15-2023 CO2 [Moles/Vol] 26.0 mmol/L 21.0-32.0 [facility] Urea nitrogen/Creatinine [Mass ratio] 10.5 mg/mg 10-20 [facility] - Hematology and Cell countsOrdered By: Heron Rodriguez on 10-15-2023 MCH (RBC) [Entitic mass] 29.3 pg 27.0-32.0 [facility] MCHC (RBC) [Mass/Vol] 32.7 g/dL 32-[address] [facility] Nucleated RBC/100 WBC (Bld) [Ratio] 0 % 0-5 [facility] Platelet mean volume (Bld) [Entitic vol] 10.1 fL 6.2-12.0 [facility] Platelets (Bld) [#/Vol] 199 10*3/uL 150-450 [facility] Mucus LM Ql (Urine sed)Order ed By: Heron Rodriguez on 10-15-2023 Mucus Ql (Urine sed) 0 SEEN /hpf [facility] Nitrite Test strip Ql (U)Ord ered By: Heron Rodriguez on 10-15-2023 Nitrite Ql (U) Negative Negative [facility] No Panel InformationOrdered By: Heron Rodriguez on 10-15-2023 Urine RBC 0 SEEN /hpf 0-5 [facility] Estimated Creatinine Clearance Calc 43.87 ml/min [facility] Estimated GFR (MDRD) Amer 40 mL/min >60 [facility] Comment on above: GFR Calc Estimated GFR (MDRD) Non-Af Amer 33 mL/min >60 [facility] Comment on above: Non- GFR Calc Protein Test strip Ql (U)Ord ered By: Heron Rodriguez on 10-15-2023 Protein Ql (U) Negative Negative [facility] RBC Auto (Bld) [#/Vol]Ordere d By: Heron Rodriguez on 10-15-2023 RBC (Bld) [#/Vol] 3.92 10*6/uL 4.6-6.2 [facility] Serum or plasma calcium hiral urement (mass/volume)Ordered By: Heron Rodriguez on 10-15-2023 Calcium [Mass/Vol] 9.0 mg/dL 8.5-10.1 [facility] Serum or plasma creatinine m easurement (mass/volume)Ordered By: Heron Rodriguez on 10-15-2023 Creatinine [Mass/Vol] 2.10 mg/dL 0.70-1.[address] [facility] Comment on above: The validity of the calculated GFR & GFRAA in patients over 70 years has not been determined. Clinical correlation is essential. Serum or plasma urea nitroge n measurement (mass/volume)Ordered By: Heron Rodriguez on 10-15-2023 Urea nitrogen [Mass/Vol] 22 mg/dL 7-18 [facility] Squamous epithelial cells de tection in urine sediment by light microscopyOrdered By: Heron Rodriguez on 10-15-2023 Epithelial cells.squamous LM Ql (Urine sed) 0 SEEN /hpf 0-5 [facility] Thin prep Papanicolaou smear with manual screeningOrdered By: Heron Rodriguez on 10-15-2023 Thin prep Papanicolaou smear with manual screening 4 5-15 [facility] Urinalysis, Completeon 10-14 BACTERIA 0 SEEN Normal None Seen [facility] Comment on above: Order Comment: CLEAN CATCH Performed By: #### L 100.0100, L500.2500 #### [facility] [address] [place], [address] EPI,SQUAMOUS 0 SEEN Normal 0-5 [facility] Comment on above: Order Comment: CLEAN CATCH Performed By: #### L 100.0100, L500.2500 #### [facility] [address] [place], [address] Mucus Ql (Urine sed) 0 SEEN Normal [facility] Comment on above: Order Comment: CLEAN CATCH Performed By: #### L 100.0100, L500.2500 #### [facility] [address] [place], [address] RBC 0 SEEN Normal 0-[address] [place] [address] Comment on above: Order Comment: CLEAN CATCH Performed By: #### L 100.0100, L500.2500 #### [facility] [address] [place], [address] WBC 0 SEEN Normal 0-[address] [place] [address] Comment on above: Order Comment: CLEAN CATCH Performed By: #### L 100.0100, L500.2500 #### [facility] [address] [place], [address] Urine blood detectionOrdered By: Heron Rodriguez on 10-15-2023 RBC Ql (U) Negative Negative [facility] Urine clarityOrdered By: Gladys Rodriguez on 10-15-2023 Clarity (U) Clear Clear [facility] Urine color determinationOrd ered By: Heron Rodriguez on 10-15-2023 Color (U) Yellow Yellow [facility] Urine glucose detectionOrder ed By: Heron Rodriguez on 10-15-2023 Glucose Ql (U) Normal mg/dl Normal [facility] Urine leukocyte esterase det ection by dipstickOrdered By: Heron Rodriguez on 10-15-2023 Leukocyte esterase Test strip Ql (U) Negative Negative [facility] Urine pHOrdered By: Heron boyd on 10-15-2023 pH (U) 5.0 [pH] 5.0 - 8.0 [facility] Urine sediment bacteria coun t by microscopy (number/high power field)Ordered By: Heron Rodriguez on 10-15-2023 Bacteria LM.HPF (Urine sed) [#/Area] 0 /[HPF] None Seen [facility] Urine specific gravity measu rementOrdered By: Heron Rodriguez on 10-15-2023 Specific gravity (U) [Rel density] 1.020 1.002-1.030 [facility] Urine urobilinogen measureme ntOrdered By: Heron Rodriguez on 10-15-2023 Urobilinogen Ql (U) Normal mg/dl Normal [facility] Abdomen/Pelvis without Conto n 10-14-2023 Abdomen/Pelvis without Cont [facility] [place], [place] [address] Abdomen/Pelvis without Cont MR#: [id number] Acct: [id number] Name: LYNN SCHREIBER ADALBERTO Rep #: [id number] : 1955 M 68 From: Jeffery Corbin PCP: Dr. Anthony Solano MD Status: [facility] ER Study: Abdomen/Pelvis without Cont Date of Exam: 10/03 06/28 Exam# [id number] Ordering Dr: Jessica Mendoza MD [id number] INDICATION: left flank pain EXAMINATION: CT ABDOMEN AND PELVIS WITHOUT CONTRAST - CT Abdomen And Pelvis W/O Contrast Injection TECHNIQUE: Helically acquired images were obtained of the abdomen and pelvis without oral or IV contrast. A radiation dose optimization technique was used for this scan. IV Contrast dosage and agent: None. Oral contrast: None. RADIATION DOSAGE (If Supplied By Facility): CTDIvol = ( 21.01 ) mGy, DLP = ( 1159.90 ) mGycm COMPARISON: CT Abdomen/PelvisJun 28 2023 __ FINDINGS: LOWER CHEST: Lung bases are clear. No cardiomegaly or pericardial effusion. LIVER: Homogeneous. No focal mass. GALLBLADDER AND BILIARY TREE: No calcified gallstones. No gallbladder distension or wall edema. No intra- or extrahepatic biliary ductal dilation. PANCREAS: No focal cystic or solid mass. SPLEEN: Normal size without focal cystic or solid mass. ADRENAL GLANDS: No nodules. KIDNEYS AND URETERS: 6 mm stone in proximal left ureter with resultant moderate left hydronephrosis. Multiple bilateral nonobstructive kidney stones the largest measures 5 mm. Left renal cyst measures 4.3 cm . PERITONEUM: No ascites or free air. No other fluid collection. BOWEL: No evidence of acute appendicitis. No stomach or bowel distension. No focal inflammatory change. LYMPH NODES: No enlarged mesenteric or retroperitoneal lymph nodes. VESSELS: Aorta is non-dilated. URINARY BLADDER: Unremarkable. REPRODUCTIVE ORGANS: No pelvic masses. ABDOMINAL WALL: No discrete abdominal or pelvic wall hernia. BONES: No lytic or blastic abnormality. CT/Abdomen/Pelvis without Cont IMPRESSION: 6 mm stone in proximal left ureter with resultant moderate left hydronephrosis. Multiple bilateral nonobstructive kidney stones the largest measures 5 mm. Electronically Signed: Jeffery Hurley MD at 7:09 EDT , CC: Dr. Jessica Mendoza MD; Dr. Anthony Solano MD Record Press Supervisor: Signed Normal [facility] Absolute lymphocyte countOrd ered By: Jessica Mendoza on 10-14-2023 Lymphocytes Auto (Unsp spec) [#/Vol] 1.74 10*3/uL 0.83-4.51 [facility] Automated lymphocyte count a s percentage of total leukocytesOrdered By: Jessica Mendoza on 10-14-2023 Lymphocytes/100 WBC Auto (Unsp spec) 28.1 % 19-41 [facility] Basic Metabolic Profile (BMP )on 10-14-2023 BUN/CRE 13.1 RATIO Normal 10-20 [facility] Comment on above: Performed By: #### L 100.0100, L500.2500 #### [facility] [address] [place], [address] CA,Total 9.5 mg/dL Normal 8.5-10.1 [facility] Comment on above: Performed By: #### L 100.0100, L500.2500 #### [facility] [address] [place], [address] Chloride [Moles/Vol] 108 mmol/L High 98-107 [facility] Comment on above: Performed By: #### L 100.0100, L500.2500 #### [facility] [address] [place], [address] CO2 [Moles/Vol] 26.0 mmol/L Normal 21.0-32.0 [facility] Comment on above: Performed By: #### L 100.0100, L500.2500 #### [facility] [address] [place], [address] Creatinine [Mass/Vol] 1.53 mg/dL High 0.70-1.[address] [facility] Comment on above: Result Comment: The validity of the calculated GFR GFRAA in patients over 70 years has not been determined. Clinical correlation is essential. Performed By: #### L 100.0100, L500.2500 #### [facility] [address] [place], [address] ECRCL 60.18 ml/min Normal [facility] Comment on above: Performed By: #### L 100.0100, L500.2500 #### [facility] [address] [place], [address] EST GFR - AA 58 mL/min Low >60 [facility] Comment on above: Result Comment: Afri can Serbian GFR Calc Performed By: #### L 100.0100, L500.2500 #### [facility] [address] [place], [address] GAP 5 Normal 5-15 [facility] Comment on above: Performed By: #### L 100.0100, L500.2500 #### [facility] [address] [place], [address] GFR/1.73 sq M.predicted among non-blacks MDRD (S/P/Bld) [Vol rate/Area] 48 mL/min/{1.73_m2} Low >60 [facility] Comment on above: Result Comment: Non- GFR Calc Performed By: #### L 100.0100, L500.2500 #### [facility] [address] [place], [address] Glucose [Mass/Vol] 134 mg/dL High 74-106 [facility] Comment on above: Result Comment: Fast ing Glucose result greater than or equal to 126 mg/dL suggests DIABETES MELLITUS per A.D.A. criteria. Performed By: #### L 100.0100, L500.2500 #### [facility] [address] [place], [address] Potassium [Moles/Vol] 4.3 mmol/L Normal 3.5-5.[address] [facility] Comment on above: Performed By: #### L 100.0100, L500.2500 #### [facility] [address] [place], [address] Sodium [Moles/Vol] 139 mmol/L Normal 136-145 [facility] Comment on above: Performed By: #### L 100.0100, L500.2500 #### [facility] [address] [place], [address] Urea nitrogen [Mass/Vol] 20 mg/dL High 7-18 [facility] Comment on above: Performed By: #### L 100.0100, L500.2500 #### [facility] [address] [place], [address] Basophil percentageOrdered B y: Jessica Mendoza on 10-14-2023 Basophil percentage 0-5 SEEN /hpf 0-5 [facility] Basophils/100 WBC (Bld) 0.6 % 0-1 [facility] Chloride [Moles/Vol] 108 mmol/L 98-107 [facility] Eosinophils/100 WBC (Bld) 6.3 % 0-5 [facility] Glucose [Mass/Vol] 134 mg/dL 74-106 [facility] Comment on above: Fasting Glucose resu lt greater than or equal to 126 mg/dL suggests DIABETES MELLITUS per A.D.A. criteria. Hemoglobin (Bld) [Mass/Vol] 12.0 g/dL 13.0-16.5 [facility] Monocytes/100 WBC (Bld) 8.5 % 0-10 [facility] Neutrophils (Bld) [#/Vol] 3.5 10*3/uL 2.0-7.7 [facility] Neutrophils/100 WBC (Bld) 56.2 % 47-70 [facility] Potassium [Moles/Vol] 4.3 mmol/L 3.5-5.[address] [facility] Sodium [Moles/Vol] 139 mmol/L 136-145 [facility] WBC (Bld) [#/Vol] 6.2 10*3/uL 4.4-11.0 [facility] Bilirubin Test strip Ql (U)O rdered By: Jessica Mendoza on 10-14-2023 Bilirubin Ql (U) Negative Negative [facility] CBC W/Diff, Automatedon 10-03 Absolute Lymph 1.74 X10 3/uL Normal 0.83-4.51 [facility] Comment on above: Performed By: #### L 100.0100, L500.2500 #### [facility] [address] [place], [address] Absolute Neut 3.5 X10 3/uL Normal 2.0-7.7 [facility] Comment on above: Performed By: #### L 100.0100, L500.2500 #### [facility] [address] [place], [address] Basophils/100 WBC (Bld) 0.6 % Normal 0-1 [facility] Comment on above: Performed By: #### L 100.0100, L500.2500 #### [facility] [address] [place], [address] Eosinophils/100 WBC (Bld) 6.3 % High 0-5 [facility] Comment on above: Performed By: #### L 100.0100, L500.2500 #### [facility] [address] [place], [address] Erythrocyte distribution width (RBC) [Ratio] 13.8 % Normal 11.6-14.6 [facility] Comment on above: Performed By: #### L 100.0100, L500.2500 #### [facility] [address] [place], [address] Hematocrit (Bld) [Volume fraction] 37.6 % Low 40-54 [facility] Comment on above: Performed By: #### L 100.0100, L500.2500 #### [facility] [address] [place], [address] Hemoglobin (Bld) [Mass/Vol] 12.0 g/dL Low 13.0-16.5 [facility] Comment on above: Performed By: #### L 100.0100, L500.2500 #### [facility] [address] [place], [address] IG% 0.300 Normal 0.0-0.9 [facility] Comment on above: Result Comment: IG% - Immature Granulocytes (promyelocytes, myelocytes and metamyelocytes) > 1% indicates that a LEFT SHIFT is Present. Performed By: #### L 100.0100, L500.2500 #### [facility] [address] [place], [address] Lymphocytes/100 WBC (Bld) 28.1 % Normal 19-41 [facility] Comment on above: Performed By: #### L 100.0100, L500.2500 #### [facility] [address] [place], [address] MCH (RBC) [Entitic mass] 28.5 pg Normal 27.0-32.0 [facility] Comment on above: Performed By: #### L 100.0100, L500.2500 #### [facility] [address] [place], [address] MCHC (RBC) [Mass/Vol] 31.9 g/dL Low 32-[address] [facility] Comment on above: Performed By: #### L 100.0100, L500.2500 #### [facility] [address] [place], [address] MCV (RBC) [Entitic vol] 89.3 fL Normal 80-94 [facility] Comment on above: Performed By: #### L 100.0100, L500.2500 #### [facility] [address] [place], [address] Monocytes/100 WBC (Bld) 8.5 % Normal 0-10 [facility] Comment on above: Performed By: #### L 100.0100, L500.2500 #### [facility] [address] [place], [address] Neutrophils/100 WBC (Bld) 56.2 % Normal 47-70 [facility] Comment on above: Performed By: #### L 100.0100, L500.2500 #### [facility] [address] [place], [address] Nucleated RBC (Bld) [#/Vol] 0 10*3/uL Normal 0-5 [facility] Comment on above: Performed By: #### L 100.0100, L500.2500 #### [facility] [address] [place], [address] Platelet mean volume (Bld) [Entitic vol] 10.2 fL Normal 6.2-12.0 [facility] Comment on above: Performed By: #### L 100.0100, L500.2500 #### [facility] [address] [place], [address] Platelets (Bld) [#/Vol] 226 10*3/uL Normal 150-450 [facility] Comment on above: Performed By: #### L 100.0100, L500.2500 #### [facility] [address] [place], [address] RBC (Bld) [#/Vol] 4.21 10*6/uL Low 4.6-6.2 [facility] Comment on above: Performed By: #### L 100.0100, L500.2500 #### [facility] [address] [place], [address] RDW SD 45.0 fl High 35.1-43.9 [facility] Comment on above: Performed By: #### L 100.0100, L500.2500 #### [facility] [address] [place], [address] WBC (Bld) [#/Vol] 6.2 10*3/uL Normal 4.4-11.0 [facility] Comment on above: Performed By: #### L 100.0100, L500.2500 #### [facility] [address] [place], [address] Determination of erythrocyte mean corpuscular volume (MCV)Ordered By: Jessica Mendoza on 10-14-2023 MCV (RBC) [Entitic vol] 89.3 fL 80-94 [facility] Emergency Department Summary on 10-14-2023 Emergency Department Summary [facility] Medical Records Department [address] [place] [address] Emergency Department Summary 10/14/23 MR#: [id number] Acct: [id number] Name: LYNN SCHREIBER Rep #: [id number] : 1955 68 From: Heron Rodriguez DO PCP: Dr. Anthony Solano MD Status:ADM EDMOND Location: MS3 [id number] HPI HPI - GI History of Present Illness Chief Complaint: Abd Pain Informant: patient Abdominal Pain/Flank Pain Onset: Yesterday Context: Sudden Onset Timing: Continuous Quality: Aching Location: Left Flank Worsened by: - (Breathing) Relieved by: Nothing Nausea/Vomiting/Emesi s GI Symptom: Positive for Nausea; Negative for Vomiting Diarrhea/Melena/Hemat ochezia GI Symptom: Negative for Diarrhea, Melena or Hematochezia Associated Symptoms Associated Symptoms: Positive for Urgency; Negative for Dysuria, Frequency or Hematuria Narrative Narrative: Patient presents with left flank pain that began yesterday. Patient was seen here earlier this morning for this. Patient was diagnosed with a 6 mm left proximal ureteral calculus. Patient stated he wanted to go home at that time. Patient was given prescriptions for Hosmer, Zofran, and Flomax. Patient states the Hosmer has not been helping. Patient states that the Zofran has been helping with nausea. Patient describes his pain as aching. Patient states it is over the left flank area. Patient states it is worse with deep breathing. Patient admits to some nausea but denies any vomiting. Patient denies any diarrhea, melena, or hematochezia. Patient admits to some urinary urgency but denies any dysuria, frequency, or hematuria. [facility] Medical History (Updated 10/15/23 @ 04:[address] Heron Rodriguez DO) Basal cell carcinoma Gout HTN (hypertension) Hyperlipidemia Kidney stone Pyelonephritis Restless leg syndrome Thyroid cancer Vertigo Home Medications allopurinol 300 mg tablet 300 mg PO DAILY 10/14/23 [History Last Taken Unknown] gabapentin 300 mg capsule 300 mg PO QHS 10/14/23 [History Last Taken Unknown] hydrocodone-acetamino phen 5-325mg 5mg-325mg 1 tab PO Q6H PRN PRN Pain 3 days #10 TABLETS 10/14/23 [Rx Last Taken Unknown] ibuprofen 400 mg tablet 400 mg PO Q8H PRN pain #14 tabs 10/14/23 [Rx Last Taken Unknown] levothyroxine 137 mcg tablet 137 mcg PO MOTUWETHFRSA 10/14/23 [History Last Taken Unknown] lisinopril 5 mg tablet 5 mg PO DAILY 10/14/23 [History Last Taken Unknown] ondansetron 4 mg disintegrating tablet 4 mg PO Q8H PRN PRN Nausea #10 tabs 10/14/23 [Rx Last Taken Unknown] rosuvastatin 20 mg tablet 20 mg PO QHS 10/14/23 [History Last Taken Unknown] tamsulosin 0.4 mg capsule (Flomax) 0.4 mg PO DAILY PRN urination 10/14/23 [History Last Taken Unknown] Allergy/AdvReac Type Severity Reaction Status Date / Time No Known Allergies Allergy Verified 10/14/23 22:42 Surgical History History of thyroid surgery Social History Smoking Status: Never smoker ROS ROS ED Constitutional Constitutional ED: Denies chills or fever(s) Eyes Eyes: Denies blurry vision or change in vision ENT ENT ED: Denies rhinorrhea or sore throat Cardiovascular Cardiovascular: Denies chest pain or palpitations Respiratory/Chest Respiratory/Chest: Denies cough or dyspnea Gastrointestinal Gastrointestinal: Reports abdominal pain; Denies nausea or vomiting Genitourinary Genitourinary ED: Denies dysuria or hematuria Musculoskeletal Musculoskeletal: Reports back pain; Denies neck pain Integumentary Denies abscess or rash Neurologic Neurologic: Denies headache(s) or weakness Allergic/Immunologic Allergic/Immunologic ED: Denies mouth swelling or urticaria EXAM Physical Exam Const Vital Signs: 10/14/23 22:41 10/15/23 00:41 10/15/23 02:00 Temperature 97.6 F L Temperature Source Temporal Pulse Rate 72 60 66 Respiratory Rate 17 18 16 Blood Pressure 161/101 H 109/63 148/86 H Blood Pressure Mean 121 78 106 Pulse Ox 98 97 95 Oxygen Delivery Method Room Air Room Air Room Air 10/15/23 04:00 Temperature Temperature Source Pulse Rate 64 Respiratory Rate 16 Blood Pressure 163/84 H Blood Pressure Mean 110 Pulse Ox 99 Oxygen Delivery Method Room Air Positive well nourished and well developed General Appearance ED: well developed and NAD HEENT Reports moist mucous membranes Neck supple and no JVD Resp normal respiratory effort and clear to auscultation bilaterally Cardio regular rate and regular rhythm GI non-distended Palpation: soft and tender LLQ and LUQ; Negative for guarding or rebound tenderness present Back/Spine General Back: CVA tenderness left Extremity full ROM Neuro CN's II-XII intact bilaterally, moves all extremities a (more content not included)... Normal [facility] Emergency Department Summary [facility] Medical Records Department [address] [place] [address] Emergency Department Summary 10/14/23 MR#: [id number] Acct: [id number] Name: LYNN SCHREIBER ADALBERTO Rep #: [id number] : 1955 68 From: Jessica Mendoza MD PCP: Dr. Anthony Solano MD Status:REG ER Location: ED HPI History of Present Illness Chief Complaint: Flank Pain Informant: patient Onset/Context/Timing Onset: Today Narrative Narrative: Patient presents with left flank pain that woke him from sleep at 1 AM this morning. He has a history of kidney stones and follows with Dr. Bear at the [facility]. He states has been told he had multiple small stones in each kidney. He has had dribbling of urination this morning with start/stop to his stream. [facility] Medical History Basal cell carcinoma Gout HTN (hypertension) Hyperlipidemia Kidney stone Pyelonephritis Restless leg syndrome Thyroid cancer Vertigo Home Medications allopurinol 300 mg tablet 300 mg PO DAILY 10/14/23 [History Last Taken Unknown] gabapentin 300 mg capsule 300 mg PO QHS 10/14/23 [History Last Taken Unknown] hydrocodone-acetamino phen 5-325mg 5mg-325mg 1 tab PO Q6H PRN PRN Pain 3 days #10 TABLETS 10/14/23 [Rx Last Taken Unknown] ibuprofen 400 mg tablet 400 mg PO Q8H PRN pain #14 tabs 10/14/23 [Rx Last Taken Unknown] levothyroxine 137 mcg tablet 137 mcg PO MOTUWETHFRSA 10/14/23 [History Last Taken Unknown] lisinopril 5 mg tablet 5 mg PO DAILY 10/14/23 [History Last Taken Unknown] ondansetron 4 mg disintegrating tablet 4 mg PO Q8H PRN PRN Nausea #10 tabs 10/14/23 [Rx Last Taken Unknown] rosuvastatin 20 mg tablet 20 mg PO QHS 10/14/23 [History Last Taken Unknown] tamsulosin 0.4 mg capsule (Flomax) 0.4 mg PO DAILY PRN urination 10/14/23 [History Last Taken Unknown] Allergy/AdvReac Type Severity Reaction Status Date / Time No Known Allergies Allergy Verified 10/14/23 04:53 Social History Smoking Status: Never smoker ROS ROS ED Constitutional Constitutional ED: Denies chills or fever(s) Eyes Eyes: Denies discharge from eye(s) ENT ENT ED: Denies discharge from eye(s), rhinorrhea or sore throat Cardiovascular Cardiovascular: Denies chest pain or palpitations Respiratory/Chest Respiratory/Chest: Denies cough or dyspnea Gastrointestinal Gastrointestinal: Reports abdominal pain; Denies nausea or vomiting Genitourinary Genitourinary ED: Reports difficulty urinating; Denies dysuria Musculoskeletal Musculoskeletal: Reports back pain; Denies extremity pain Integumentary Denies Abrasions or rash Neurologic Neurologic: Denies headache(s) or weakness Psychiatric Psychiatric: Denies anxiety or depression Allergic/Immunologic Allergic/Immunologic ED: Denies lip swelling or urticaria EXAM Physical Exam Const Vital Signs: 10/14/23 04:52 10/14/23 05:51 10/14/23 06:00 Temperature 98 F Temperature Source Temporal Pulse Rate 54 L 74 70 Respiratory Rate 16 16 17 Blood Pressure 192/94 H 142/81 H 135/67 H Blood Pressure Mean 126 101 89 Pulse Ox 98 96 96 Oxygen Delivery Method Room Air Room Air 10/14/23 07:00 Temperature 97.3 F L Temperature Source Temporal Pulse Rate 50 L Respiratory Rate 17 Blood Pressure 129/63 H Blood Pressure Mean 85 Pulse Ox 97 Oxygen Delivery Method Room Air Positive well nourished and well developed General Appearance ED: well developed HEENT Reports moist mucous membranes Eyes EOMs intact bilaterally Chest Wall inspection of chest normal and palpation of chest normal Resp normal respiratory effort and clear to auscultation bilaterally Cardio regular rate and regular rhythm GI GI Narrative: Abdomen soft with no focal tenderness. No guarding or rebound. Back/Spine General Back: CVA tenderness left Neuro oriented x3 and no sensory deficits noted Motor Exam: strength 5/5 throughout Psych mental status grossly normal Skin no rashes or lesions noted MDM MDM MDM Narrative Medical decision making narrative: IV line established. Patient given IV fluids, Toradol, morphine, and Zofran. Labwork obtained to evaluate for leukocytosis, anemia, and electrolyte derangement. Urinalysis obtained to evaluate for infection/hematuria. CT flank obtained to evaluate for renal stone size and location. History Record Review Discussion w/independent historian: Patient Lab Data Attestation: I reviewed the patient's lab results. Labs: Laboratory Results - last 24 hr 10/14/23 10/14/23 05:06 07:10 WBC 6.2 RBC 4.21 L Hgb 12.0 L Hct 37.6 L MCV 89.3 MCH 28.5 MCHC 31.9 L RDW Std Deviation 45.0 H RDW Coeff of Yoselyn 13.8 Plt Count 226 (more content not included)... Normal [facility] Erythrocyte distribution wid th ratioOrdered By: Jessica Mendoza on 10-14-2023 Erythrocyte distribution width (RBC) [Ratio] 13.8 % 11.6-14.6 [facility] Erythrocyte distribution wid th standard deviationOrdered By: Jessica Mendoza on 10-14-2023 Erythrocyte distribution width (RBC) [Entitic vol] 45.0 fL 35.1-43.9 [facility] Hematocrit Auto (Bld) [Volum e fraction]Ordered By: Jessica Mendoza on 10-14-2023 Hematocrit (Bld) [Volume fraction] 37.6 % 40-54 [facility] Immature granulocytes/100 WB C Auto (Bld)Ordered By: Jessica Mendoza on 10-14-2023 Immature granulocytes/100 WBC (Bld) 0.300 % 0.0-0.9 [facility] Comment on above: IG% - Immature Granu locytes (promyelocytes, myelocytes and metamyelocytes) > 1% indicates that a LEFT SHIFT is Present. Ketones Test strip Ql (U)Ord ered By: Jessica Mendoza on 10-14-2023 Ketones Ql (U) Negative Negative [facility] - Chemistry and C hemistry - challengeOrdered By: Jessica Mendoza on 10-14-2023 CO2 [Moles/Vol] 26.0 mmol/L 21.0-32.0 [facility] Urea nitrogen/Creatinine [Mass ratio] 13.1 mg/mg 10-20 [facility] - Hematology and Cell countsOrdered By: Jessica Mendoza on 10-14-2023 MCH (RBC) [Entitic mass] 28.5 pg 27.0-32.0 [facility] MCHC (RBC) [Mass/Vol] 31.9 g/dL 32-[address] [facility] Nucleated RBC/100 WBC (Bld) [Ratio] 0 % 0-5 [facility] Platelet mean volume (Bld) [Entitic vol] 10.2 fL 6.2-12.0 [facility] Platelets (Bld) [#/Vol] 226 10*3/uL 150-450 [facility] Mucus LM Ql (Urine sed)Order ed By: Jessica Mendoza on 10-14-2023 Mucus Ql (Urine sed) 0 SEEN /hpf [facility] Nitrite Test strip Ql (U)Ord ered By: Jessica Mendoza on 10-14-2023 Nitrite Ql (U) Negative Negative [facility] No Panel InformationOrdered By: Jessica Mendoza on 10-14-2023 Urine RBC 0-5 SEEN /hpf 0-5 [facility] Estimated Creatinine Clearance Calc 60.18 ml/min [facility] Estimated GFR (MDRD) Amer 58 mL/min >60 [facility] Comment on above: GFR Calc Estimated GFR (MDRD) Non-Af Amer 48 mL/min >60 [facility] Comment on above: Non- GFR Calc Protein Test strip Ql (U)Ord ered By: Jessica Mendoza on 10-14-2023 Protein Ql (U) Negative Negative [facility] RBC Auto (Bld) [#/Vol]Ordere d By: Jessica Mendoza on 10-14-2023 RBC (Bld) [#/Vol] 4.21 10*6/uL 4.6-6.2 [facility] Serum or plasma calcium hiral urement (mass/volume)Ordered By: Jessica Mendoza on 10-14-2023 Calcium [Mass/Vol] 9.5 mg/dL 8.5-10.1 [facility] Serum or plasma creatinine m easurement (mass/volume)Ordered By: Jessica Mendoza on 10-14-2023 Creatinine [Mass/Vol] 1.53 mg/dL 0.70-1.[address] [facility] Comment on above: The validity of the calculated GFR & GFRAA in patients over 70 years has not been determined. Clinical correlation is essential. Serum or plasma urea nitroge n measurement (mass/volume)Ordered By: Jessica Mendoza on 10-14-2023 Urea nitrogen [Mass/Vol] 20 mg/dL 7-18 [facility] Squamous epithelial cells de tection in urine sediment by light microscopyOrdered By: Jessica Mendoza on 10-14-2023 Epithelial cells.squamous LM Ql (Urine sed) 0-5 SEEN /hpf 0-5 [facility] Thin prep Papanicolaou smear with manual screeningOrdered By: Jessica Mendoza on 10-14-2023 Thin prep Papanicolaou smear with manual screening 5 5-15 [facility] Urinalysis, Completeon 10-13 EPI,SQUAMOUS 0-5 SEEN Normal 0-5 [facility] Comment on above: Order Comment: CLEAN CATCH Performed By: #### L 100.0100, L500.2500 #### [facility] [address] [place], [address] RBC 0-5 SEEN Normal 0-5 [facility] Comment on above: Order Comment: CLEAN CATCH Performed By: #### L 100.0100, L500.2500 #### [facility] [address] [place], [address] WBC 0-5 SEEN Normal 0-5 [facility] Comment on above: Order Comment: CLEAN CATCH Performed By: #### L 100.0100, L500.2500 #### [facility] [address] [place], [address] BACTERIA 0 SEEN Normal None Seen [facility] Comment on above: Order Comment: CLEAN CATCH Performed By: #### L 100.0100, L500.2500 #### [facility] [address] [place], [address] Mucus Ql (Urine sed) 0 SEEN Normal [facility] Comment on above: Order Comment: CLEAN CATCH Performed By: #### L 100.0100, L500.2500 #### [facility] [address] [place], [address] Urine blood detectionOrdered By: Jessica Mendoza on 10-14-2023 RBC Ql (U) 50 /ul Negative [facility] Urine clarityOrdered By: Lanie Mendoza on 10-14-2023 Clarity (U) Clear Clear [facility] Urine color determinationOrd ered By: Jessica Mendoza on 10-14-2023 Color (U) Yellow Yellow [facility] Urine glucose detectionOrder ed By: Jessica Mendoza on 10-14-2023 Glucose Ql (U) Normal mg/dl Normal [facility] Urine leukocyte esterase det ection by dipstickOrdered By: Jessica Mendoza on 10-14-2023 Leukocyte esterase Test strip Ql (U) 25 /ul Negative [facility] Urine pHOrdered By: Jessica Mendoza on 10-14-2023 pH (U) 6.0 [pH] 5.0 - 8.0 [facility] Urine sediment bacteria coun t by microscopy (number/high power field)Ordered By: Jessica Mendoza on 10-14-2023 Bacteria LM.HPF (Urine sed) [#/Area] 0 /[HPF] None Seen [facility] Urine specific gravity measu rementOrdered By: Jessica Mendoza on 10-14-2023 Specific gravity (U) [Rel density] 1.010 1.002-1.030 [facility] Urine urobilinogen measureme ntOrdered By: Jessica Mendoza on 10-14-2023 Urobilinogen Ql (U) Normal mg/dl Normal [facility] ECG COMPLETEon 09-19-2023 Atrial Rate 49 BPM [facility] Calculated P [place] 36 degrees [facility] Calculated R [place] 25 degrees [facility] Calculated T [place] 39 degrees [facility] P-R Interval 210 ms [facility] QRS Duration 94 ms [facility] QT Interval 428 ms [facility] QTC Calculation (Bazett) 386 ms [facility] Ventricular Rate 49 BPM [facility] UA DIP, URINE (POC)on 2023 BILIRUBIN UA (POCT) Negative Negative [facility] CLARITY UA (POCT) Clear [facility] COLOR UA (POCT) Yellow [facility] GLUCOSE UA (POCT) Negative Negative mg/dL [facility] Hemoglobin Ql (U) Negative Negative [facility] KETONE UA (POCT) Negative Negative mg/dL [facility] LEUKOCYTES UA (POCT) Negative Negative [facility] NITRITE UA (POCT) Negative Negative [facility] PH UA (POCT) 5.0 4.5 - 8.0 [facility] Protein Ql (U) Negative Negative mg/dL [facility] SPECIFIC GRAVITY UA (POCT) 1.020 1.005 - 1.030 [facility] UROBILINOGEN UA (POCT) 0.2 E.U./dL Ghada l E.U./dL [facility] Absolute lymphocyte countOrd ered By: ED PROVIDER on 06-28-2023 Lymphocytes Auto (Unsp spec) [#/Vol] 1.64 10*3/uL 0.83-4.51 [facility] Automated lymphocyte count a s percentage of total leukocytesOrdered By: ED PROVIDER on 06-28-2023 Lymphocytes/100 WBC Auto (Unsp spec) 20.2 % 19-41 [facility] Basophil percentageOrdered B y: ED PROVIDER on 06-28-2023 Basophil percentage 0-5 SEEN /hpf 0-5 [facility] Basophils/100 WBC (Bld) 0.5 % 0-1 [facility] Bilirubin [Mass/Vol] 0.60 mg/dL 0.20-1.00 [facility] Comment on above: For patients on eltr ombopag therapy, use of Dimension [place] TBIL is not recommended. Chloride [Moles/Vol] 107 mmol/L 98-107 [facility] Eosinophils/100 WBC (Bld) 2.8 % 0-5 [facility] Glucose [Mass/Vol] 114 mg/dL 74-106 [facility] Comment on above: Fasting Glucose resu lt from 100 to 125 mg/dL suggests IMPAIRED HOMEOSTASIS per A.D.A. criteria. Hemoglobin (Bld) [Mass/Vol] 12.4 g/dL 13.0-16.5 [facility] Monocytes/100 WBC (Bld) 6.9 % 0-10 [facility] Neutrophils (Bld) [#/Vol] 5.6 10*3/uL 2.0-7.7 [facility] Neutrophils/100 WBC (Bld) 69.4 % 47-70 [facility] Potassium [Moles/Vol] 4.0 mmol/L 3.5-5.[address] [facility] Protein [Mass/Vol] 6.8 g/dL 6.4-8.2 [facility] Sodium [Moles/Vol] 137 mmol/L 136-145 [facility] WBC (Bld) [#/Vol] 8.1 10*3/uL 4.4-11.0 [facility] Bilirubin Test strip Ql (U)O rdered By: ED PROVIDER on 06-28-2023 Bilirubin Ql (U) Negative Negative [facility] Determination of erythrocyte mean corpuscular volume (MCV)Ordered By: ED PROVIDER on 06-28-2023 MCV (RBC) [Entitic vol] 88.1 fL 80-94 [facility] Erythrocyte distribution wid th ratioOrdered By: ED PROVIDER on 06-28-2023 Erythrocyte distribution width (RBC) [Ratio] 13.0 % 11.6-14.6 [facility] Erythrocyte distribution wid th standard deviationOrdered By: ED PROVIDER on 06-28-2023 Erythrocyte distribution width (RBC) [Entitic vol] 41.9 fL 35.1-43.9 [facility] Hematocrit Auto (Bld) [Volum e fraction]Ordered By: ED PROVIDER on 06-28-2023 Hematocrit (Bld) [Volume fraction] 38.4 % 40-54 [facility] Immature granulocytes/100 WB C Auto (Bld)Ordered By: ED PROVIDER on 06-28-2023 Immature granulocytes/100 WBC (Bld) 0.200 % 0.0-0.9 [facility] Comment on above: IG% - Immature Granu locytes (promyelocytes, myelocytes and metamyelocytes) > 1% indicates that a LEFT SHIFT is Present. Ketones Test strip Ql (U)Ord ered By: ED PROVIDER on 06-28-2023 Ketones Ql (U) Negative Negative [facility] - Chemistry and C hemistry - challengeOrdered By: ED PROVIDER on 06-28-2023 Albumin/Globulin [Mass ratio] 1.1 {ratio} 0.9-2.4 [facility] ALP [Catalytic activity/Vol] 64 U/L 45-117 [facility] ALT [Catalytic activity/Vol] 26 U/L 16-61 [facility] CO2 [Moles/Vol] 29.0 mmol/L 21.0-32.0 [facility] Globulin (S) [Mass/Vol] 3.3 g/dL 2.2-4.2 [facility] Urea nitrogen/Creatinine [Mass ratio] 12.7 mg/mg 10-20 [facility] - Hematology and Cell countsOrdered By: ED PROVIDER on 06-28-2023 MCH (RBC) [Entitic mass] 28.4 pg 27.0-32.0 [facility] MCHC (RBC) [Mass/Vol] 32.3 g/dL 32-[address] [facility] Nucleated RBC/100 WBC (Bld) [Ratio] 0 % 0-5 [facility] Platelets (Bld) [#/Vol] 188 10*3/uL 150-450 [facility] Mucus LM Ql (Urine sed)Order ed By: ED PROVIDER on 06-28-2023 Mucus Ql (Urine sed) 0 SEEN /hpf [facility] Nitrite Test strip Ql (U)Ord ered By: ED PROVIDER on 06-28-2023 Nitrite Ql (U) Negative Negative [facility] No Panel InformationOrdered By: ED PROVIDER on 06-28-2023 Urine RBC 0-5 SEEN /hpf 0-5 [facility] Estimated Creatinine Clearance Calc 44.43 ml/min [facility] Estimated GFR (MDRD) Amer 40 mL/min >60 [facility] Comment on above: GFR Calc Estimated GFR (MDRD) Non-Af Amer 33 mL/min >60 [facility] Comment on above: Non- GFR Calc Platelet mean volume Henri-Ec ker (Bld) [Entitic vol]Ordered By: ED PROVIDER on 06-28-2023 Platelet mean volume (Bld) [Entitic vol] 10.2 fL 6.2-12.0 [facility] Protein Test strip Ql (U)Ord ered By: ED PROVIDER on 06-28-2023 Protein Ql (U) Negative Negative [facility] RBC Auto (Bld) [#/Vol]Ordere d By: ED PROVIDER on 06-28-2023 RBC (Bld) [#/Vol] 4.36 10*6/uL 4.6-6.2 [facility] Serum or plasma calcium hiral urement (mass/volume)Ordered By: ED PROVIDER on 06-28-2023 Calcium [Mass/Vol] 9.3 mg/dL 8.5-10.1 [facility] Serum or plasma creatinine m easurement (mass/volume)Ordered By: ED PROVIDER on 06-28-2023 Creatinine [Mass/Vol] 2.13 mg/dL 0.70-1.[address] [facility] Comment on above: The validity of the calculated GFR & GFRAA in patients over 70 years has not been determined. Clinical correlation is essential. Serum or plasma urea nitroge n measurement (mass/volume)Ordered By: ED PROVIDER on 06-28-2023 Urea nitrogen [Mass/Vol] 27 mg/dL 7-18 [facility] Squamous epithelial cells de tection in urine sediment by light microscopyOrdered By: ED PROVIDER on 06-28-2023 Epithelial cells.squamous LM Ql (Urine sed) 0 SEEN /hpf 0-5 [facility] Thin prep Papanicolaou smear with manual screeningOrdered By: ED PROVIDER on 06-28-2023 Thin prep Papanicolaou smear with manual screening 3.5 g/dL 3.2-5.0 [facility] Thin prep Papanicolaou smear with manual screening 16 U/L 15-37 [facility] Thin prep Papanicolaou smear with manual screening 1 5-15 [facility] Urine blood detectionOrdered By: ED PROVIDER on 06-28-2023 RBC Ql (U) 50 /ul Negative [facility] Urine clarityOrdered By: ED PROVIDER on 06-28-2023 Clarity (U) Clear Clear [facility] Urine color determinationOrd ered By: ED PROVIDER on 06-28-2023 Color (U) Yellow Yellow [facility] Urine glucose detectionOrder ed By: ED PROVIDER on 06-28-2023 Glucose Ql (U) Normal mg/dl Normal [facility] Urine leukocyte esterase det ection by dipstickOrdered By: ED PROVIDER on 06-28-2023 Leukocyte esterase Test strip Ql (U) 100 /ul Negative [facility] Urine pHOrdered By: ED PROVI KAITLIN on 06-28-2023 pH (U) 6.0 [pH] 5.0 - 8.0 [facility] Urine sediment bacteria coun t by microscopy (number/high power field)Ordered By: ED PROVIDER on 06-28-2023 Bacteria LM.HPF (Urine sed) [#/Area] 0 /[HPF] None Seen [facility] Urine specific gravity measu rementOrdered By: ED PROVIDER on 06-28-2023 Specific gravity (U) [Rel density] 1.010 1.002-1.030 [facility] Urine urobilinogen measureme ntOrdered By: ED PROVIDER on 06-28-2023 Urobilinogen Ql (U) Normal mg/dl Normal [facility] Absolute lymphocyte countOrd ered By: Farooq Simmons on 06-27-2023 Lymphocytes Auto (Unsp spec) [#/Vol] 1.74 10*3/uL 0.83-4.51 [facility] Automated lymphocyte count a s percentage of total leukocytesOrdered By: Farooq Simmons on 06-27-2023 Lymphocytes/100 WBC Auto (Unsp spec) 17.7 % 19-41 [facility] Basophil percentageOrdered B y: Remus Troy on 06-27-2023 Basophil percentage 0-5 SEEN /hpf 0-5 [facility] Basophils/100 WBC (Bld) 0.6 % 0-1 [facility] Bilirubin [Mass/Vol] 0.60 mg/dL 0.20-1.00 [facility] Comment on above: For patients on eltr ombopag therapy, use of Dimension [place] TBIL is not recommended. Chloride [Moles/Vol] 107 mmol/L 98-107 [facility] Eosinophils/100 WBC (Bld) 1.9 % 0-5 [facility] Glucose [Mass/Vol] 104 mg/dL 74-106 [facility] Comment on above: Fasting Glucose resu lt from 100 to 125 mg/dL suggests IMPAIRED HOMEOSTASIS per A.D.A. criteria. Hemoglobin (Bld) [Mass/Vol] 14.4 g/dL 13.0-16.5 [facility] Monocytes/100 WBC (Bld) 7.1 % 0-10 [facility] Neutrophils (Bld) [#/Vol] 7.1 10*3/uL 2.0-7.7 [facility] Neutrophils/100 WBC (Bld) 72.3 % 47-70 [facility] Potassium [Moles/Vol] 4.2 mmol/L 3.5-5.[address] [facility] Protein [Mass/Vol] 7.7 g/dL 6.4-8.2 [facility] Sodium [Moles/Vol] 140 mmol/L 136-145 [facility] WBC (Bld) [#/Vol] 9.8 10*3/uL 4.4-11.0 [facility] Bilirubin Test strip Ql (U)O rdered By: Farooq Simmons on 06-27-2023 Bilirubin Ql (U) Negative Negative [facility] Determination of erythrocyte mean corpuscular volume (MCV)Ordered By: Farooq Simmons on 06-27-2023 MCV (RBC) [Entitic vol] 87.5 fL 80-94 [facility] Erythrocyte distribution wid th ratioOrdered By: Farooq Simmons on 06-27-2023 Erythrocyte distribution width (RBC) [Ratio] 12.8 % 11.6-14.6 [facility] Erythrocyte distribution wid th standard deviationOrdered By: Farooq Simmons on 06-27-2023 Erythrocyte distribution width (RBC) [Entitic vol] 41.0 fL 35.1-43.9 [facility] Hematocrit Auto (Bld) [Volum e fraction]Ordered By: Farooq Simmons on 06-27-2023 Hematocrit (Bld) [Volume fraction] 43.9 % 40-54 [facility] Immature granulocytes/100 WB C Auto (Bld)Ordered By: Farooq Simmons on 06-27-2023 Immature granulocytes/100 WBC (Bld) 0.400 % 0.0-0.9 [facility] Comment on above: IG% - Immature Granu locytes (promyelocytes, myelocytes and metamyelocytes) > 1% indicates that a LEFT SHIFT is Present. Ketones Test strip Ql (U)Ord ered By: Farooq Simmons on 06-27-2023 Ketones Ql (U) Negative Negative [facility] Laboratory - Chemistry and C hemistry - challengeOrdered By: Farooq Simmons on 06-27-2023 Albumin/Globulin [Mass ratio] 1.0 {ratio} 0.9-2.4 [facility] ALP [Catalytic activity/Vol] 74 U/L 45-117 [facility] ALT [Catalytic activity/Vol] 33 U/L 16-61 [facility] CO2 [Moles/Vol] 28.0 mmol/L 21.0-32.0 [facility] Globulin (S) [Mass/Vol] 3.8 g/dL 2.2-4.2 [facility] Urea nitrogen/Creatinine [Mass ratio] 14.3 mg/mg 10-20 [facility] Laboratory - Hematology and Cell countsOrdered By: Farooq Simmons on 06-27-2023 MCH (RBC) [Entitic mass] 28.7 pg 27.0-32.0 [facility] MCHC (RBC) [Mass/Vol] 32.8 g/dL 32-[address] [facility] Nucleated RBC/100 WBC (Bld) [Ratio] 0 % 0-5 [facility] Platelets (Bld) [#/Vol] 226 10*3/uL 150-450 [facility] Mucus LM Ql (Urine sed)Order ed By: Farooq Simmons on 06-27-2023 Mucus Ql (Urine sed) 0 SEEN /hpf [facility] Nitrite Test strip Ql (U)Ord ered By: Farooq Simmons on 06-27-2023 Nitrite Ql (U) Negative Negative [facility] No Panel InformationOrdered By: Farooq Simmons on 06-27-2023 Urine RBC 5-10 SEEN /hpf 0-5 [facility] Estimated Creatinine Clearance Calc 57.86 ml/min [facility] Estimated GFR (MDRD) Amer 55 mL/min >60 [facility] Comment on above: GFR Calc Estimated GFR (MDRD) Non-Af Amer 45 mL/min >60 [facility] Comment on above: Non- GFR Calc Platelet mean volume Henri-Ec ker (Bld) [Entitic vol]Ordered By: Farooq Simmons on 06-27-2023 Platelet mean volume (Bld) [Entitic vol] 10.6 fL 6.2-12.0 [facility] Protein Test strip Ql (U)Ord ered By: Farooq Simmons on 06-27-2023 Protein Ql (U) Negative Negative [facility] RBC Auto (Bld) [#/Vol]Ordere d By: Farooq Simmons on 06-27-2023 RBC (Bld) [#/Vol] 5.02 10*6/uL 4.6-6.2 [facility] Serum or plasma calcium hiral urement (mass/volume)Ordered By: Farooq Simmons on 06-27-2023 Calcium [Mass/Vol] 10.1 mg/dL 8.5-10.1 [facility] Serum or plasma creatinine m easurement (mass/volume)Ordered By: Farooq Simmons on 06-27-2023 Creatinine [Mass/Vol] 1.61 mg/dL 0.70-1.[address] [facility] Comment on above: The validity of the calculated GFR & GFRAA in patients over 70 years has not been determined. Clinical correlation is essential. Serum or plasma urea nitroge n measurement (mass/volume)Ordered By: Farooq Simmons on 06-27-2023 Urea nitrogen [Mass/Vol] 23 mg/dL 7-18 [facility] Squamous epithelial cells de tection in urine sediment by light microscopyOrdered By: Farooq Simmons on 06-27-2023 Epithelial cells.squamous LM Ql (Urine sed) 0 SEEN /hpf 0-5 [facility] Thin prep Papanicolaou smear with manual screeningOrdered By: Farooq Simmons on 06-27-2023 Thin prep Papanicolaou smear with manual screening 3.9 g/dL 3.2-5.0 [facility] Thin prep Papanicolaou smear with manual screening 24 U/L 15-37 [facility] Thin prep Papanicolaou smear with manual screening 5 5-15 [facility] Urine blood detectionOrdered By: Farooq Simmons on 06-27-2023 RBC Ql (U) 150 /ul Negative [facility] Urine clarityOrdered By: Rem us Troy on 06-27-2023 Clarity (U) Clear Clear [facility] Urine color determinationOrd ered By: Farooq Simmons on 06-27-2023 Color (U) Yellow Yellow [facility] Urine glucose detectionOrder ed By: Farooq Simmons on 06-27-2023 Glucose Ql (U) Normal mg/dl Normal [facility] Urine leukocyte esterase det ection by dipstickOrdered By: Farooq Simmons on 06-27-2023 Leukocyte esterase Test strip Ql (U) 25 /ul Negative [facility] Urine pHOrdered By: Farooq Un gur on 06-27-2023 pH (U) 5.0 [pH] 5.0 - 8.0 [facility] Urine sediment bacteria coun t by microscopy (number/high power field)Ordered By: Farooq Simmons on 06-27-2023 Bacteria LM.HPF (Urine sed) [#/Area] 0 /[HPF] None Seen [facility] Urine specific gravity measu rementOrdered By: Farooq Simmons on 06-27-2023 Specific gravity (U) [Rel density] 1.020 1.002-1.030 [facility] Urine urobilinogen measureme ntOrdered By: Farooq Simmons on 06-27-2023 Urobilinogen Ql (U) Normal mg/dl Normal [facility] CBC W Auto Differential pane l (Bld)on 11-09-2022 Basophils (Bld) [#/Vol] 0.06 10*3/uL <0.11 k/uL [facility] Basophils/100 WBC (Bld) 0.7 % [facility] Differential cell count method Nom (Bld) Auto [facility] Eosinophils (Bld) [#/Vol] 0.25 10*3/uL <0.46 k/uL [facility] Eosinophils/100 WBC (Bld) 2.8 % [facility] Erythrocyte distribution width (RBC) [Ratio] 13.2 % 11.5 - 15.0 % [facility] Hematocrit (Bld) [Volume fraction] 41.9 % 39.0 - 51.0 % [facility] Hemoglobin (Bld) [Mass/Vol] 13.3 g/dL 13.0 - 17.0 g/dL [facility] Immature granulocytes (Bld) [#/Vol] 0.03 10*3/uL <0.10 k/uL [facility] Immature granulocytes/100 WBC (Bld) 0.3 % [facility] Lymphocytes (Bld) [#/Vol] 1.83 10*3/uL 1.00 - 4.00 k/uL [facility] Lymphocytes/100 WBC (Bld) 20.6 % [facility] MCH (RBC) [Entitic mass] 28.5 pg 26. 0 - 34.0 pg [facility] MCHC (RBC) [Mass/Vol] 31.7 g/dL 30.5 - 36.0 g/dL [facility] MCV (RBC) [Entitic vol] 89.7 fL 80.0 - 100.0 fL [facility] Monocytes (Bld) [#/Vol] 0.67 10*3/uL <0.87 k/uL [facility] Monocytes/100 WBC (Bld) 7.5 % [facility] Neutrophils (Bld) [#/Vol] 6.05 10*3/uL 1.45 - 7.50 k/uL [facility] Neutrophils/100 WBC (Bld) 68.1 % [facility] Nucleated RBC (Bld) [#/Vol] <0.01 k/uL [facility] Nucleated RBC/100 WBC (Bld) [Ratio] 0.0 /100 WBC [facility] Platelet mean volume (Bld) [Entitic vol] 11.4 fL 9.0 - 12.7 fL [facility] Platelets (Bld) [#/Vol] 233 10*3/uL 150 - 400 k/uL [facility] RBC (Bld) [#/Vol] 4.67 10*6/uL 4.20 - 6.0 0 m/uL [facility] WBC (Bld) [#/Vol] 8.89 10*3/uL 3.70 - 11. 00 k/uL [facility] Free PSA [Mass/Vol]on 2022 Free PSA/Total PSA [Mass fraction] 20 % [facility] Prostate specific Ag [Mass/Vol] 6.33 ng/mL High <2.60 ng/mL [facility] CRYOTHERAPY SKIN LESION [facility] Vital Signs Date Time Vital Sign Value Performing Clinician Facility 11-12-2024 09:00-0400 Body mass index (BMI) [Ratio] 36.26 kg/m2 Zoraida Suppan 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 Work Phone: [facility] 11-12-2024 09:00-0400 Body weight 117.94 kg Zoraida Suppan 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 Work Phone: [facility] 11-12-2024 09:00-0400 Diastolic blood pressure 78 mm[Hg] Zoraida Suppan 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 Work Phone: [facility] 11-12-2024 09:00-0400 Heart rate 59 /min Zoraida Suppan 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 Work Phone: [facility] 11-12-2024 09:00-0400 SaO2% (BldA) [Mass fraction] 97 % Zoraida Suppan 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 Work Phone: [facility] 11-12-2024 09:00-0400 Systolic blood pressure 130 mm[Hg] Zoraida Suppan 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 Work Phone: [facility] 07-01-2024 08:46-0500 Body mass index (BMI) [Ratio] 37.99 kg/m2 Anthony Loredo Jr., MD Work Phone: [facility] 07-01-2024 08:46-0500 Body weight 123.56 kg Anthony Loredo Jr., MD Work Phone: [facility] 07-01-2024 08:46-0500 Diastolic blood pressure 72 mm[Hg] Anthony Loredo Jr., MD Work Phone: [facility] 07-01-2024 08:46-0500 Heart rate 58 /min Anthony Loredo Jr., MD Work Phone: [facility] 07-01-2024 08:46-0500 Respiratory rate 16 /min Anthony Loredo Jr., MD Work Phone: [facility] 07-01-2024 08:46-0500 SaO2% (BldA) [Mass fraction] 96 % Anthony Loredo Jr., MD Work Phone: [facility] 07-01-2024 08:46-0500 Systolic blood pressure 133 mm[Hg] Anthony Loredo Jr., MD Work Phone: [facility] 06-06-2024 14:31-0500 Body height 180.3 cm Caroline El DO Work Phone: [facility] 06-06-2024 14:31-0500 Body mass index (BMI) [Ratio] 38.65 kg/m2 Caroline El DO Work Phone: [facility] 06-06-2024 14:31-0500 Body weight 125.7 kg Caroline El DO Work Phone: [facility] 06-06-2024 14:31-0500 Diastolic blood pressure 76 mm[Hg] Caroline El DO Work Phone: [facility] 06-06-2024 14:31-0500 Heart rate 65 /min Caroline El DO Work Phone: [facility] 06-06-2024 14:31-0500 SaO2% (BldA) [Mass fraction] 97 % Caroline El DO Work Phone: [facility] 06-06-2024 14:31-0500 Systolic blood pressure 118 mm[Hg] Caroline El DO Work Phone: [facility] 04-22-2024 07:12-0500 Body mass index (BMI) [Ratio] 37.7 kg/m2 Saurav Max MD Work Phone: [facility] 04-22-2024 07:12-0500 Body temperature 96.6 [degF] Saurav Max MD Work Phone: [facility] 04-22-2024 07:12-0500 Body weight 122.6 kg Saurav Max MD Work Phone: [facility] 04-22-2024 07:12-0500 Diastolic blood pressure 70 mm[Hg] Saurav Max MD Work Phone: [facility] 04-22-2024 07:12-0500 Heart rate 63 /min Saurav Max MD Work Phone: [facility] 04-22-2024 07:12-0500 Respiratory rate 20 /min Saurav Max MD Work Phone: [facility] 04-22-2024 07:12-0500 SaO2% (BldA) [Mass fraction] 98 % Saurav Max MD Work Phone: [facility] 04-22-2024 07:12-0500 Systolic blood pressure 140 mm[Hg] Saurav Max MD Work Phone: [facility] 03-19-2024 12:32-0400 Body mass index (BMI) [Ratio] 37.51 kg/m2 Zoraida Suppan 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 Work Phone: [facility] 03-19-2024 12:32-0400 Body weight 122 kg Zoraida Suppan 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 Work Phone: [facility] 03-19-2024 12:32-0400 Diastolic blood pressure 70 mm[Hg] Zoraida Suppan 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 Work Phone: [facility] 03-19-2024 12:32-0400 Heart rate 57 /min Zoraida Suppan 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 Work Phone: [facility] 03-19-2024 12:32-0400 Respiratory rate 18 /min Zoraida Suppan 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 Work Phone: [facility] 03-19-2024 12:32-0400 SaO2% (BldA) [Mass fraction] 96 % Zoraida Suppan 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 Work Phone: [facility] 03-19-2024 12:32-0400 Systolic blood pressure 122 mm[Hg] Zoraida Suppan 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 Work Phone: [facility] 02-22-2024 14:04-0400 Body mass index (BMI) [Ratio] 36.96 kg/m2 Elena Dias MD Work Phone: [facility] 02-22-2024 14:04-0400 Body weight 120.2 kg Elena Dias MD Work Phone: [facility] 02-02-2024 07:21-0400 Body mass index (BMI) [Ratio] 37.3 kg/m2 Amelia Praisler-Wood 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 Work Phone: [facility] 02-02-2024 07:21-0400 Body temperature 97.81 [degF] Amelia Praisler-Wood 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 Work Phone: [facility] 02-02-2024 07:21-0400 Body weight 121.3 kg Amelia Praisler-Wood 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 Work Phone: [facility] 02-02-2024 07:21-0400 Diastolic blood pressure 77 mm[Hg] Amelia Praisler-Wood 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 Work Phone: [facility] 02-02-2024 07:21-0400 Heart rate 57 /min Amelia Praisler-Wood 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 Work Phone: [facility] 02-02-2024 07:21-0400 Respiratory rate 18 /min Amelia Praisler-Wood 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 Work Phone: [facility] 02-02-2024 07:21-0400 SaO2% (BldA) [Mass fraction] 97 % Amelia Praisler-Wood 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 Work Phone: [facility] 02-02-2024 07:21-0400 Systolic blood pressure 135 mm[Hg] Amelia Praisler-Wood 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 Work Phone: [facility] 01-02-2024 08:52-0400 Body mass index (BMI) [Ratio] 37.02 kg/m2 Harlan Chawla 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 Work Phone: [facility] 01-02-2024 08:52-0400 Body temperature 98.91 [degF] Harlan Chawla 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 Work Phone: [facility] 01-02-2024 08:52-0400 Body weight 120.4 kg Harlan Chawla 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 Work Phone: [facility] 01-02-2024 08:52-0400 Diastolic blood pressure 68 mm[Hg] Harlan Chawla 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 Work Phone: [facility] 01-02-2024 08:52-0400 Heart rate 84 /min Harlan Chawla 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 Work Phone: [facility] 01-02-2024 08:52-0400 Respiratory rate 16 /min Harlan Chawla 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 Work Phone: [facility] 01-02-2024 08:52-0400 SaO2% (BldA) [Mass fraction] 95 % Harlan Chawla 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 Work Phone: [facility] 01-02-2024 08:52-0400 Systolic blood pressure 122 mm[Hg] Harlan Chawla 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 Work Phone: [facility] 12-25-2023 10:54-0400 Body mass index (BMI) [Ratio] 37.35 kg/m2 Tereza Dulce 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 Work Phone: [facility] 12-25-2023 10:54-0400 Body weight 121.47 kg Tereza Dulce 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 Work Phone: [facility] 12-25-2023 10:54-0400 Diastolic blood pressure 76 mm[Hg] Tereza Dulce 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 Work Phone: [facility] 12-25-2023 10:54-0400 Heart rate 54 /min Tereza Dulce 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 Work Phone: [facility] 12-25-2023 10:54-0400 Respiratory rate 18 /min Tereza Dulce 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 Work Phone: [facility] 12-25-2023 10:54-0400 SaO2% (BldA) [Mass fraction] 98 % Tereza Dulce 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 Work Phone: [facility] 12-25-2023 10:54-0400 Systolic blood pressure 123 mm[Hg] Tereza Dulce 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 Work Phone: [facility] 12-14-2023 10:41-0400 Diastolic blood pressure 96 mm[Hg] Jessica García MD Work Phone: [facility] 12-14-2023 10:41-0400 Heart rate 62 /min Jessica García MD Work Phone: [facility] 12-14-2023 10:41-0400 Systolic blood pressure 140 mm[Hg] Jessica García MD Work Phone: [facility] 10-16-2023 15:17-0400 Body temperature 98.4 [degF] [facility] 10-16-2023 15:17-0400 Diastolic blood pressure 74 mm[Hg] [facility] 10-16-2023 15:17-0400 Heart rate 81 /min [facility] 10-16-2023 15:17-0400 Respiratory rate 16 /min [facility] 10-16-2023 15:17-0400 SaO2% (BldA) [Mass fraction] 94 % [facility] 10-16-2023 15:17-0400 Systolic blood pressure 147 mm[Hg] [facility] 10-16-2023 09:52-0400 Body height 180.34 cm [facility] 10-16-2023 09:52-0400 Body mass index (BMI) [Ratio] 38.2 kg/m2 [facility] 10-16-2023 09:52-0400 Body weight 124.28 kg [facility] 10-15-2023 05:12-0400 Body temperature 98.4 [degF] [facility] 10-15-2023 05:12-0400 Diastolic blood pressure 80 mm[Hg] [facility] 10-15-2023 05:12-0400 Heart rate 61 /min [facility] 10-15-2023 05:12-0400 Respiratory rate 16 /min [facility] 10-15-2023 05:12-0400 SaO2% (BldA) [Mass fraction] 96 % [facility] 10-15-2023 05:12-0400 Systolic blood pressure 139 mm[Hg] [facility] 10-14-2023 22:41-0400 Body height 180.34 cm [facility] 10-14-2023 22:41-0400 Body mass index (BMI) [Ratio] 38.1 kg/m2 [facility] 10-14-2023 22:41-0400 Body weight 123.96 kg [facility] 10-14-2023 07:56-0400 Body temperature 98 [degF] [facility] 10-14-2023 07:56-0400 Diastolic blood pressure 71 mm[Hg] [facility] 10-14-2023 07:56-0400 Heart rate 60 /min [facility] 10-14-2023 07:56-0400 Respiratory rate 16 /min [facility] 10-14-2023 07:56-0400 SaO2% (BldA) [Mass fraction] 99 % [facility] 10-14-2023 07:56-0400 Systolic blood pressure 121 mm[Hg] [facility] 10-14-2023 04:52-0400 Body height 180.34 cm [facility] 10-14-2023 04:52-0400 Body mass index (BMI) [Ratio] 38 kg/m2 [facility] 10-14-2023 04:52-0400 Body weight 123.8 kg [facility] 10-04-2023 07:34-0400 Body mass index (BMI) [Ratio] 37.54 kg/m2 Saurav Max MD Work Phone: [facility] 10-04-2023 07:34-0400 Body temperature 97.2 [degF] Saurav Max MD Work Phone: [facility] 10-04-2023 07:34-0400 Body weight 122.1 kg Suarav Max MD Work Phone: [facility] 10-04-2023 07:34-0400 Diastolic blood pressure 72 mm[Hg] Saurav Max MD Work Phone: [facility] 10-04-2023 07:34-0400 Heart rate 65 /min Saurav Max MD Work Phone: [facility] 10-04-2023 07:34-0400 Respiratory rate 16 /min Saurav Max MD Work Phone: [facility] 10-04-2023 07:34-0400 SaO2% (BldA) [Mass fraction] 98 % Saurav Max MD Work Phone: [facility] 10-04-2023 07:34-0400 Systolic blood pressure 148 mm[Hg] Saurav Max MD Work Phone: [facility] 09-19-2023 08:57-0400 Body height 180.3 cm NA Graf PA-C Work Phone: [facility] 09-19-2023 08:57-0400 Body weight 124.29 kg NA Graf PA-C Work Phone: [facility] 09-19-2023 08:57-0400 Diastolic blood pressure 74 mm[Hg] NA Graf PA-C Work Phone: [facility] 09-19-2023 08:57-0400 Heart rate 60 /min NA Graf PA-C Work Phone: [facility] 09-19-2023 08:57-0400 Respiratory rate 16 /min NA Graf PA-C Work Phone: [facility] 09-19-2023 08:57-0400 Systolic blood pressure 130 mm[Hg] NA Graf PA-C Work Phone: [facility] 09-15-2023 08:43-0400 Body weight 124.6 kg Jessica Olvera APRN.CNP Work Phone: [facility] 09-15-2023 08:43-0400 Diastolic blood pressure 78 mm[Hg] Jessica Olvera APRN.[employer] INTEGRATOR Work Phone: [facility] 09-15-2023 08:43-0400 Heart rate 49 /min Jessica Olvera APRN.[employer] INTEGRATOR Work Phone: [facility] 09-15-2023 08:43-0400 SaO2% (BldA) [Mass fraction] 99 % Jessica Olvera APRN.[employer] INTEGRATOR Work Phone: [facility] 09-15-2023 08:43-0400 Systolic blood pressure 114 mm[Hg] Jessica Olvera APRN.[employer] INTEGRATOR Work Phone: [facility] 06-28-2023 23:06-0500 Diastolic blood pressure 64 mm[Hg] [facility] 06-28-2023 23:06-0500 Heart rate 64 /min [facility] 06-28-2023 23:06-0500 Respiratory rate 16 /min [facility] 06-28-2023 23:06-0500 SaO2% (BldA) [Mass fraction] 97 % [facility] 06-28-2023 23:06-0500 Systolic blood pressure 140 mm[Hg] [facility] 06-28-2023 20:24-0500 Body temperature 97.9 [degF] [facility] 06-28-2023 18:27-0500 Body height 180.34 cm [facility] 06-28-2023 18:27-0500 Body mass index (BMI) [Ratio] 39 kg/m2 [facility] 06-28-2023 18:27-0500 Body weight 126.96 kg [facility] 06-27-2023 13:39-0500 Diastolic blood pressure 71 mm[Hg] [facility] 06-27-2023 13:39-0500 Heart rate 78 /min [facility] 06-27-2023 13:39-0500 SaO2% (BldA) [Mass fraction] 98 % [facility] 06-27-2023 13:39-0500 Systolic blood pressure 124 mm[Hg] [facility] 06-27-2023 11:13-0500 Body height 180.34 cm [facility] 06-27-2023 11:0500 Body mass index (BMI) [Ratio] 37.8 kg/m2 [facility] 06-27-2023 11:130500 Body temperature 98.2 [degF] [facility] 06-27-2023 11:050 Body weight 123.2 kg [facility] 06-27-2023 11:0500 Respiratory rate 16 /min [facility] 03-16-2023 09:20-0400 Body height 180.3 cm Caroline El DO Work Phone: [facility] 03-16-2023 09:20-0400 Body weight 120.66 kg Caroline El DO Work Phone: [facility] 03-16-2023 09:20-0400 Diastolic blood pressure 76 mm[Hg] Caroline El DO Work Phone: [facility] 03-16-2023 09:20-0400 Heart rate 54 /min aCroline El DO Work Phone: [facility] 03-16-2023 09:20-0400 SaO2% (BldA) [Mass fraction] 97 % Caroline El DO Work Phone: [facility] 03-16-2023 09:20-0400 Systolic blood pressure 128 mm[Hg] Caroline El DO Work Phone: [facility] 12-12-2022 10:04-0400 Body temperature 97.9 [degF] Anthony Loredo Jr., MD Work Phone: [facility] 12-12-2022 10:04-0400 Body weight 117.48 kg Anthony Loredo Jr., MD Work Phone: [facility] 12-12-2022 10:04-0400 Heart rate 52 /min Anthony Loredo Jr., MD Work Phone: [facility] 12-12-2022 10:04-0400 Respiratory rate 16 /min Anthony Loredo Jr., MD Work Phone: [facility] 12-12-2022 10:04-0400 SaO2% (BldA) [Mass fraction] 96 % Anthony Loredo Jr., MD Work Phone: [facility] 12-12-2022 08:29-0400 Body weight 117.48 kg NA Graf PA-C Work Phone: [facility] 12-12-2022 08:29-0400 Diastolic blood pressure 72 mm[Hg] NA Graf PA-C Work Phone: [facility] 12-12-2022 08:29-0400 Heart rate 61 /min NA Graf PA-C Work Phone: [facility] 12-12-2022 08:29-0400 Respiratory rate 16 /min NA Graf PA-C Work Phone: [facility] 12-12-2022 08:29-0400 SaO2% (BldA) [Mass fraction] 98 % NA Graf PA-C Work Phone: [facility] 12-12-2022 08:29-0400 Systolic blood pressure 128 mm[Hg] NA Graf PA-C Work Phone: [facility] 11-09-2022 08:52-0400 Body temperature 97.59 [degF] Nicoletet Perales PA-C Work Phone: [facility] 11-09-2022 08:52-0400 Body weight 116.57 kg Nicolette Perales PA-C Work Phone: [facility] 11-09-2022 08:52-0400 Diastolic blood pressure 70 mm[Hg] Nicolette Perales PA-C Work Phone: [facility] 11-09-2022 08:52-0400 Heart rate 52 /min Nicolette Perales PA-C Work Phone: [facility] 11-09-2022 08:52-0400 Respiratory rate 18 /min Nicolette Perales PA-C Work Phone: [facility] 11-09-2022 08:52-0400 Systolic blood pressure 110 mm[Hg] Nicolette Perales PA-C Work Phone: [facility] 09-14-2022 10:23-0400 Body height 181.6 cm Ashley Chin 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 Work Phone: [facility] 09-14-2022 10:23-0400 Body weight 119.93 kg Ashley Chin 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 Work Phone: [facility] 09-14-2022 10:23-0400 Diastolic blood pressure 70 mm[Hg] Ashley Chin 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 Work Phone: [facility] 09-14-2022 10:23-0400 Heart rate 43 /min Ashley Chin 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 Work Phone: [facility] 09-14-2022 10:23-0400 SaO2% (BldA) [Mass fraction] 99 % Ashley Chin 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 Work Phone: [facility] 09-14-2022 10:23-0400 Systolic blood pressure 114 mm[Hg] Ashley Chin 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 Work Phone: [facility] 07-06-2022 10:40-0500 Body weight 118.84 kg Elena Dias MD Work Phone: [facility] 07-06-2022 10:40-0500 Diastolic blood pressure 82 mm[Hg] Elena Dias MD Work Phone: [facility] 07-06-2022 10:40-0500 Heart rate 47 /min Elena Dias MD Work Phone: [facility] 07-06-2022 10:40-0500 Systolic blood pressure 132 mm[Hg] Elena Dias MD Work Phone: [facility] 06-13-2022 13:47-0500 Body temperature 97.2 [degF] Anthony Loredo Jr., MD Work Phone: [facility] 06-13-2022 13:47-0500 Body weight 118.66 kg Anthony Loredo Jr., MD Work Phone: [facility] 06-13-2022 13:47-0500 Diastolic blood pressure 74 mm[Hg] Anthony Loredo Jr., MD Work Phone: [facility] 06-13-2022 13:47-0500 Heart rate 58 /min Anthony Loredo Jr., MD Work Phone: [facility] 06-13-2022 13:47-0500 Respiratory rate 16 /min Anthony Loredo Jr., MD Work Phone: [facility] 06-13-2022 13:47-0500 SaO2% (BldA) [Mass fraction] 97 % Anthony Loredo Jr., MD Work Phone: [facility] 06-13-2022 13:47-0500 Systolic blood pressure 125 mm[Hg] Anthony Loredo Jr., MD Work Phone: [facility] 01-21-2022 07:15-0400 Body temperature 98.91 [degF] Millie Wolf APRN.CROSS ENTERPRISE INTEGRATOR Work Phone: [facility] 01-21-2022 07:15-0400 Body weight 118.3 kg Millie Wolf APRN.CROSS ENTERPRISE INTEGRATOR Work Phone: [facility] 01-21-2022 07:15-0400 Diastolic blood pressure 66 mm[Hg] Millie Wolf APRN.CROSS ENTERPRISE INTEGRATOR Work Phone: [facility] 01-21-2022 07:15-0400 Heart rate 69 /min Millie Wolf APRN.CROSS ENTERPRISE INTEGRATOR Work Phone: [facility] 01-21-2022 07:15-0400 Respiratory rate 21 /min Millie Wolf APRN.CROSS ENTERPRISE INTEGRATOR Work Phone: [facility] 01-21-2022 07:15-0400 SaO2% (BldA) [Mass fraction] 98 % Millie Wolf APRN.CROSS ENTERPRISE INTEGRATOR Work Phone: [facility] 01-21-2022 07:15-0400 Systolic blood pressure 114 mm[Hg] Millie Wolf APRN.CROSS ENTERPRISE INTEGRATOR Work Phone: [facility] 11-25-2021 11:37-0400 Body weight 118.39 kg Anthony Loredo Jr., MD Work Phone: [facility] 11-25-2021 11:37-0400 Diastolic blood pressure 77 mm[Hg] Anthony Loredo Jr., MD Work Phone: [facility] 11-25-2021 11:37-0400 Heart rate 53 /min Anthony Loredo Jr., MD Work Phone: [facility] 11-25-2021 11:37-0400 SaO2% (BldA) [Mass fraction] 96 % Anthony Loredo Jr., MD Work Phone: [facility] 11-25-2021 11:37-0400 Systolic blood pressure 122 mm[Hg] Anthony Loredo Jr., MD Work Phone: [facility] Encounters Encounter Date Encounter Type Care Provider Facility Start: 01-13-2025 End: 01-16-2025 Telephone encounter Ayaka Acevedo APRN.CNP Work Phone: Dermatology Comment on above: Orders (See note) Start: 01-13-2025 End: 01-13-2025 ambulatory ZORAIDA A SUPPAN Facility:[facility] Start: 01-07-2025 End: 01-07-2025 Patient encounter procedure Ayaka Acevedo APRN.CROSS ENTERPRISE INTEGRATOR Work Phone: Dermatology Comment on above: Seborrheic dermatiti s (Primary Dx) Start: 01-07-2025 End: 01-07-2025 ambulatory ZORAIDA A SUPPAN Facility: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 Start: 10-04-2024 End: 10-04-2024 Orders Only Zohaib Grove Work Phone: Orthopaedics Comment on above: Pain in both knees, unspecified chronicity (Primary Dx) Primary osteoarthrit is of right knee Pain in both knees, unspecified chronicity [M25.561, M25.562] Start: 10-02-2024 End: 10-02-2024 ambulatory Zoraida Tavarez 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 Work Phone: [facility] [place] Start: 10-02-2024 End: 10-02-2024 Patient encounter procedure Zoraida Tavarez 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 Work Phone: [facility] [place] Comment on above: Referral Start: 09-12-2024 End: 09-12-2024 ambulatory Alisson Hallman MA [facility] Start: 09-12-2024 End: 09-12-2024 Patient encounter procedure Alisson Hallman MA [facility] Comment on above: Population Health Na vigation Outreach ([place]/Workbench/ACO ) Start: 08-18-2024 End: 08-19-2024 Refill Anthony Solano MD Work Phone: Family [facility] [place] Comment on above: Refill Request Start: 08-02-2024 End: 08-02-2024 Refill Anthony Solano MD Work Phone: Family [facility] [place] Comment on above: Refill Request Start: 07-21-2024 End: 07-22-2024 Refill Alda Sky APRN.CROSS ENTERPRISE INTEGRATOR Work Phone: Dermatology Comment on above: Refill Request Start: 07-01-2024 End: 07-01-2024 Subsequent hospital visit by physician Carol [facility] [place] Chris Work Phone: Radiology Comment on above: Hammer toe of left f oot [M20.42] Start: 07-01-2024 End: 07-01-2024 ambulatory HARLAN PABON Facility:[facility] Start: 07-01-2024 End: 07-01-2024 Patient encounter procedure Anthony Loredo MD Work Phone: Neurology Comment on above: MAXIMILIAN on CPAP (Primary Dx); Obesity, Class II, BMI 35-39.9; Restless legs syndrome; Nocturia; Peripheral vertigo involving left ear Hammer toe of left f oot (Primary Dx); Neuropathy Start: 07-01-2024 End: 07-01-2024 ambulatory ANTHONY LOREDO JR Facility:[facility] Start: 06-06-2024 End: 06-06-2024 ambulatory CAROLINE EL Facility:[facility] Start: 06-06-2024 End: 06-06-2024 Patient encounter procedure Caroline El DO Work Phone: Cardiology Comment on above: Mild left ventricula r systolic dysfunction (Primary Dx); 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); Essential hypertension; Mixed hyperlipidemia; Nonrheumatic mitral valve regurgitation; MAXIMILIAN (obstructive sleep apnea) Start: 06-05-2024 End: 06-05-2024 Emergency department patient visit Vinicio Gong Facility:[facility] Start: 05-16-2024 End: 05-16-2024 Refill Anthony Solano MD Work Phone: Family [facility] Comment on above: Refill Request Start: 04-22-2024 End: 04-22-2024 ambulatory ZORAIDA TAVAREZ Facility:[facility] Start: 04-22-2024 End: 04-22-2024 Office outpatient visit 25 minutes Saurav Max MD Work Phone: [facility] Comment on above: Acute cough (Primary Dx); Acute non-recurrent sinusitis, unspecified location Start: 03-20-2024 End: 03-21-2024 Telephone encounter Zoraida Tavarez 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 Work Phone: [facility] [place] Comment on above: Insurance Authorizat ion Start: 03-19-2024 End: 03-19-2024 Office outpatient visit 25 minutes Zoraida Tavarez 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 Work Phone: [facility] [place] Comment on above: Essential hypertensi on (Primary Dx); 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); MAXIMILIAN (obstructive sleep apnea); Mixed hyperlipidemia; Folliculitis Start: 03-19-2024 End: 03-19-2024 ambulatory ZORAIDA TAVAREZ Facility:[facility] Start: 02-22-2024 End: 02-22-2024 ambulatory ELENA SEPULVEDA Facility:[facility] Start: 02-22-2024 End: 02-22-2024 Patient encounter procedure Elena Sepulveda MD Work Phone: Endocrinology Comment on above: Post-surgical hypoth yroidism (Primary Dx); Hurthle cell carcinoma of thyroid (HCC); Obesity, Class II, BMI 35-39.9 Start: 02-22-2024 End: 02-22-2024 Telemedicine consultation with patient Elena Dias MD Work Phone: Endocrinology Start: 02-08-2024 End: 02-08-2024 ambulatory LEONIDAS GRAF Facility:[facility] Start: 02-06-2024 End: 02-06-2024 ambulatory ALDA SKY Facility:[facility] Start: 02-06-2024 End: 02-06-2024 Patient encounter procedure Alda Sky 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 Work Phone: Dermatology Comment on above: Scar (Primary Dx); AK (actinic keratosis) Start: 02-02-2024 End: 02-02-2024 ambulatory LEONIDAS GRAF Facility:[facility] Start: 02-02-2024 End: 02-02-2024 Patient encounter procedure Amelia Domingo 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 Work Phone: [facility] Comment on above: Folliculitis (Primar y Dx); Rash Start: 01-22-2024 End: 01-23-2024 ambulatory Elena Dias MD Work Phone: Endocrinology Start: 01-22-2024 End: 01-23-2024 Patient encounter procedure Elena Sepulveda MD Work Phone: Endocrinology Comment on above: Blood Work Start: 01-02-2024 End: 01-02-2024 Patient encounter procedure Harlan Denton 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 Work Phone: [facility] Comment on above: Sinobronchitis (Prim penny Dx) Neoplasm of unspecif ied behavior of bone, soft tissue, and skin (Primary Dx); Seborrheic dermatitis Start: 12-25-2023 End: 12-25-2023 Patient encounter procedure Tereza Cardona 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 Work Phone: Neurology Comment on above: MAXIMILIAN on CPAP (Primary Dx); Restless legs syndrome Start: 12-21-2023 End: 12-21-2023 Nursing evaluation of patient and report Derm Surgery Nurse Work Phone: Dermatology Comment on above: Basal cell carcinoma (BCC) of skin of nose (Primary Dx) Start: 12-19-2023 Telephone encounter Tereza burnett 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 Work Phone: Neurology Comment on above: PAP Therapy Follow U p Start: 12-14-2023 End: 12-14-2023 Patient encounter procedure Jessica García MD Work Phone: Dermatology Comment on above: Basal cell carcinoma (BCC) of skin of nose Start: 11-10-2023 Telephone encounter Anthony Loredo MD Work Phone: Neurology Start: 11-07-2023 Telephone encounter Aaliyah amaya 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 Work Phone: Dermatology [place] Comment on above: Results Start: 11-03-2023 End: 11-03-2023 Patient encounter procedure 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 Work Phone: Dermatology [place] Comment on above: Neoplasm of unspecif ied behavior of bone, soft tissue, and skin (Primary Dx); Seborrheic keratosis; Hx of nonmelanoma skin cancer Start: 10-17-2023 ambulatory Elena Dias MD Work Phone: Endocrinology Start: 10-17-2023 Patient encounter procedure Elena Sepulveda MD Work Phone: Endocrinology Comment on above: New appointment Start: 10-16-2023 End: 10-16-2023 ambulatory Elena Dias MD Work Phone: Endocrinology Start: 10-16-2023 Patient encounter procedure Elena Sepulveda MD Work Phone: Endocrinology Comment on above: Edward s appointment Start: 10-15-2023 End: 10-16-2023 ambulatory Shaun Lynch Facility:[facility] Start: 10-15-2023 End: 10-16-2023 Evaluation and management of inpatient [facility] Work Phone: Start: 10-15-2023 End: 10-16-2023 observation encounter [facility] Work Phone: Start: 10-15-2023 Evaluation and management of inpatient [facility] Work Phone: Start: 10-15-2023 observation encounter [facility] Work Phone: Start: 10-14-2023 End: 10-14-2023 Emergency department patient visit [facility] Work Phone: Start: 10-04-2023 End: 10-04-2023 Patient encounter procedure Saurav Max MD Work Phone: [facility] Comment on above: Acute cough (Primary Dx) Start: 09-19-2023 Telephone encounter Bandar Graf PA-C Work Phone: [facility] [place] Comment on above: Pain in left wrist Start: 09-19-2023 End: 09-19-2023 Patient encounter procedure Bandar Graf PA-C Work Phone: [facility] [place] Comment on above: Left wrist tendoniti s (Primary Dx) Start: 09-15-2023 End: 09-15-2023 Patient encounter procedure Jessica Olvera APRN.CROSS ENTERPRISE INTEGRATOR Work Phone: Cardiology Comment on above: Aneurysm of ascendin g aorta without rupture (HCC) (Primary Dx); Mixed hyperlipidemia; Essential hypertension Start: 08-22-2023 End: 08-22-2023 Patient encounter procedure Vika Sotelo MD Work Phone: Urology Comment on above: Kidney stones (Prima ry Dx) Start: 08-03-2023 Telephone encounter Chivo ornelas PA-C Work Phone: Urology Comment on above: Appointment Start: 07-14-2023 End: 07-14-2023 Patient encounter procedure Alda Sky APRN.CROSS ENTERPRISE INTEGRATOR Work Phone: Dermatology Comment on above: Seborrheic dermatiti s (Primary Dx); Seborrheic keratosis; Inflamed seborrheic keratosis; AK (actinic keratosis) Start: 07-06-2023 ambulatory M Caroline Maxwell on PA-C Work Phone: [facility] Comment on above: Blood work Start: 06-28-2023 End: 06-28-2023 Emergency department patient visit [facility] Work Phone: Start: 06-27-2023 End: 06-27-2023 Emergency department patient visit [facility] Work Phone: Start: 04-20-2023 Telephone encounter Gail Philippe on PA-C Work Phone: Dermatology Comment on above: Patient Question (Af lac forms) Start: 04-20-2023 End: 04-20-2023 Patient encounter procedure Nurse Juan Jose [facility] Work Phone: Dermatology Comment on above: Actinic keratosis (P rimary Dx) Start: 03-16-2023 End: 03-16-2023 Patient encounter procedure Caroline El DO Work Phone: Cardiology Comment on above: Mild left ventricula r systolic dysfunction (Primary Dx); Essential hypertension; Mixed hyperlipidemia; Ascending aorta dilatation (HCC); MAXIMILIAN (obstructive sleep apnea); Nonrheumatic mitral valve regurgitation Start: 03-03-2023 Telephone encounter Anthony Loredo MD Work Phone: Neurology Comment on above: medical necessity Start: 01-11-2023 End: 01-11-2023 Patient encounter procedure Gail Lebron PA-C Work Phone: Dermatology Comment on above: Actinic keratosis (P rimary Dx); Notalgia paresthetica; Inflamed seborrheic keratosis Start: 12-13-2022 Telephone encounter Elena andrew MD Work Phone: Endocrinology & Metabolic [place] Start: 12-12-2022 End: 12-12-2022 Patient encounter procedure Anthony Loredo MD Work Phone: Neurology Comment on above: MAXIMILIAN (obstructive sle ep apnea) (Primary Dx); Restless legs syndrome; Class 2 obesity with body mass index (BMI) of 35.0 to 35.9 in adult, unspecified obesity type, unspecified whether serious comorbidity present Start: 12-12-2022 End: 12-12-2022 Patient encounter procedure Bandar Graf PA-C Work Phone: [facility] [place] Comment on above: Aneurysm of ascendin g aorta without rupture (HCC) (Primary Dx); Mild left ventricular systolic dysfunction; Mild pulmonary hypertension (HCC); MAXIMILIAN (obstructive sleep apnea); Essential hypertension; Mixed hyperlipidemia; Renal insufficiency; Post-surgical hypothyroidism; Obesity, Class II, BMI 35-39.9; Restless legs syndrome; Chronic midline low back pain without sciatica; Hurthle cell carcinoma of thyroid (HCC); Gout with manifestations; Elevated PSA; Insomnia, unspecified type; Family history of prostate cancer in father; Screening for prostate cancer Start: 11-10-2022 Telephone encounter Nicolette middleton PA-C Work Phone: [facility] [place] Comment on above: Results Start: 11-09-2022 End: 11-09-2022 Patient encounter procedure Nicolette Perales PA-C Work Phone: [facility] [place] Comment on above: Acute gout of left a nkle, unspecified cause (Primary Dx); Acute left ankle pain Start: 10-30-2022 Refill Bandar Maxwell on PA-C Work Phone: [facility] [place] Comment on above: Refill Request Start: 09-14-2022 End: 09-14-2022 Patient encounter procedure Ashley Chin APRN.CROSS ENTERPRISE INTEGRATOR Work Phone: Cardiology Comment on above: Sinus bradycardia (P rimary Dx); Ascending aorta dilatation (HCC); Mixed hyperlipidemia; 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); Mild left ventricular systolic dysfunction; Essential hypertension; Mild pulmonary hypertension (HCC); MAXIMLIIAN (obstructive sleep apnea); Nonrheumatic mitral valve regurgitation Refill Request Start: 07-31-2022 Refill Bandar Maxwell on PA-C Work Phone: [facility] [place] Comment on above: Refill Request Start: 07-06-2022 End: 07-06-2022 Patient encounter procedure Elena Sepulveda MD Work Phone: Endocrinology Comment on above: Post-surgical hypoth yroidism; Hurthle cell carcinoma of thyroid (HCC); Obesity, Class II, BMI 35-39.9 Start: 06-17-2022 Telephone encounter Silvia fernandez APRN.CROSS ENTERPRISE INTEGRATOR Work Phone: [facility] [place] Comment on above: Results Start: 06-13-2022 End: 06-13-2022 Patient encounter procedure Anthony Loredo MD Work Phone: Neurology Comment on above: Obstructive sleep ap barbra (adult) (pediatric) (Primary Dx); Restless legs syndrome Start: 05-01-2022 Refill Bandar Maxwell on PA-C Work Phone: [facility] [place] Comment on above: Refill Request Start: 03-23-2022 Telephone encounter Anthony Loredo MD Work Phone: Neurology Comment on above: Electronic Communica tion Start: 01-21-2022 End: 01-21-2022 Patient encounter procedure Millie Wolf APRN.CROSS ENTERPRISE INTEGRATOR [facility] Comment on above: At increased risk of exposure to COVID-19 virus (Primary Dx); Acute upper respiratory infection, unspecified Start: 12-27-2021 Telephone encounter Tereza Reeves 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 Work Phone: Cardiology Comment on above: Orders Start: 11-25-2021 End: 11-25-2021 Patient encounter procedure Anthony Loredo MD Work Phone: Neurology Comment on above: MAXIMILIAN (obstructive sle ep apnea) (Primary Dx); Restless legs syndrome Refill Request Start: 11-02-2021 ambulatory Gail Cummings A-C Work Phone: Dermatology Comment on above: Skin spots Start: 09-20-2021 Telephone encounter Gail hayden PA-C Work Phone: Dermatology Comment on above: Mohs Procedures Date Procedure Procedure Detail Performing Clinician Start: 11-12-2024 Adult depression scr eening assessment Zoraida Tavarez 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 Work Phone: Start: 10-04-2024 Arthrocentesis aspir &/inj major jt/bursa w/o us Zohaib Grove DO Work Phone: Start: 02-06-2024 CRYOTHERAPY SKIN LESION Alda Sky 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 Work Phone: Start: 10-16-2023 Cystoscopy and retro grade pyelography Start: 10-16-2023 Fluoroscopic guidance Start: 10-14-2023 CT of abdomen and pe lvis without contrast Start: 09-15-2023 Ecg routine ecg w/le ast 12 lds i&r only [facility] Provider Start: 08-22-2023 Urnls dip stick/tabl et rgnt auto w/o microscopy Vika Sotelo MD Work Phone: Start: 07-14-2023 CRYOTHERAPY SKIN LESION Alda Sky 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 Work Phone: Start: 06-28-2023 CT of abdomen and pe lvis without contrast Start: 06-27-2023 CT of abdomen and pe lvis without contrast Start: 06-19-2023 Lipid 1996 panel - S vishnu or Plasma RANDEE Graf PA-C Work Phone: Start: 12-12-2022 Lipid 1996 panel - S vishnu or Plasma Anthony Loredo Jr., MD Work Phone: Start: 09-14-2022 Ecg routine ecg w/le ast 12 lds i&r only [facility] Provider Start: 11-24-2021 Adult depression scr eening assessment Anthony Loredo Jr., MD Work Phone: Start: 10-13-2020 Adult depression scr eening assessment Gail Lebron PA-C Work Phone: Start: 04-04-2014 Colonoscopy Gail Khanmaycol on PA-C Work Phone: Plan of Treatment Date Care Activity Detail Author Start: 06-13-2032 Urine microalbumin profile [facility] Start: 2028 RSV Vaccine (1 - 1-dose 75+ series) RSV Vaccine (1 - 1-dose 75+ series) [facility] Start: 06-19-2028 Lipid panel Lipid Screening [facility] Start: 12-13-2027 Lipid 1996 panel - Serum or Plasma Lipid Screening [facility] Start: 12-13-2027 LIPID SCREEN LIPID SCREEN [facility] Start: 06-21-2027 PROSTATE CANCER SCREENING DISCUSSION PROSTATE CANCER SCREENING DISCUSSION [facility] Start: 06-15-2027 LIPID SCREEN LIPID SCREEN [facility] Start: 02-07-2027 Diabetes Screening Diabetes Screening [facility] Start: 07-19-2026 Diabetes Screening Diabetes Screening [facility] Start: 07-13-2026 LIPID SCREEN LIPID SCREEN [facility] Start: 07-04-2026 Diabetes Screening Diabetes Screening [facility] Start: 11-12-2025 Annual PCP Team Chronic Disease Visit Annual PCP Team Chronic Disease Visit [facility] Start: 11-12-2025 Anxiety Screening Anxiety Screening [facility] Start: 11-12-2025 BP Controlled (<130/80) BP Controlled (<130/80) [facility] Start: 11-12-2025 Covid-19 Vaccine ( season) Covid-19 Vaccine ( season) [facility] Comment on above: Postponed from 02/04/2024 (Declined at t his time) Start: 11-12-2025 Depression Screening Depression Screening [facility] Start: 11-12-2025 Medicare Annual Wellness Visit Medicare Annual Wellness Visit [facility] Start: 11-12-2025 Pneumococcal Vaccine: 50+ (2 of 2 - PCV20 or PCV21) Pneumococcal Vaccine: 50+ (2 of 2 - PCV20 or PCV21) [facility] Comment on above: Postponed from 03/25/2020 (Declined at t his time) Start: 11-12-2025 Pneumococcal Vaccine: 50+ (2 of 2 - PPSV23) Pneumococcal Vaccine: 50+ (2 of 2 - PPSV23) [facility] Comment on above: Postponed from 03/25/2020 (Declined at t his time) Start: 11-12-2025 Screening for malignant neoplasm of colon Colorectal Cancer Screening [facility] Comment on above: Postponed from 1998 (Declined at t his time) Start: 11-12-2025 Shingrix Vaccine (1 of 2) Shingrix Vaccine (1 of 2) [facility] Comment on above: Postponed from 09/30/2003 (Declined at t his time) Start: 06-15-2025 DIABETES SCREEN DIABETES SCREEN [facility] Start: 06-15-2025 Diabetes Screening Diabetes Screening [facility] Start: 06-06-2025 BP Controlled (<130/80) BP Controlled (<130/80) [facility] Start: 04-14-2025 End: 04-14-2025 Patient encounter procedure 04/14/2025 10:00 AM EST Office Visit [facility] [place] [address] [place] [address] Zoraida Tavarez, 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 [address] [place] [address] Follow Up Family [facility] Comment on above: Follow Up Start: 04-07-2025 End: 04-07-2025 Patient encounter procedure 04/07/2025 9:45 AM EST Office Visit Dermatology [address] [place], [place] [id number] Ayaka Acevedo, LIANG.CR[employer] ENTER[employer]ISE INTEGRATOR [address] [place] [address] 3 month follow up Dermatology Comment on above: 3 month follow up Start: 03-19-2025 Annual PCP Team Chronic Disease Visit Annual PCP Team Chronic Disease Visit [facility] Start: 03-19-2025 BP Controlled (<130/80) BP Controlled (<130/80) [facility] Start: 02-26-2025 End: 02-26-2025 Patient encounter procedure 02/26/2025 9:40 AM EDT Office Visit Endocrinology [address] [place] [address] Elena Sepulveda V, MD [address] [place] [address] hypothyroid follow up Endocrinology Comment on above: hypothyroid follow up Start: 02-17-2025 End: 02-17-2025 Patient encounter procedure 02/17/2025 10:20 AM EDT Office Visit Neurology [address] [place] [address] Anthony Loredo Jr., MD [address] [place], [place] [id number] 7 month follow up Neurology Comment on above: 7 month follow up Start: 02-12-2025 End: 02-12-2025 ambulatory 02/12/2025 8:00 AM EDT Results Only [facility] [address] [place] [address] [facility] Start: 02-03-2025 Influenza vaccination [facility] Start: 01-28-2025 End: 01-28-2025 Patient encounter procedure 01/28/2025 2:45 PM EDT Office Visit Dermatology [address] [place] [address] Ayaka Acevedo, LIANG.CR[employer] ENTER[employer]ISE INTEGRATOR [address] [place] [address] discuss spot on nose had MOHS Dermatology Comment on above: discuss spot on nose had MOHS Start: 01-27-2025 End: 01-27-2025 Patient encounter procedure 01/27/2025 11:30 AM EDT Office Visit Cardiology [address] [address] Jessica Olvera APRN.[employer] INTEGRATOR [address] [place] [address] 7 month follow up Cardiology Comment on above: 7 month follow up Start: 01-21-2025 End: 04-22-2025 CBC W Auto Differential panel - Blood COMPLETE BLOOD COUNT AND DIFFERENTIAL Lab Routine Restless legs syndrome Mixed hyperlipidemia Sinus bradycardia Aneurysm of ascending aorta without rupture MAXIMILIAN (obstructive sleep apnea) Essential hypertension 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, unspecified chronicity, unspecified laterality Expected: 01/21/2025, Expires: 04/22/2025 [facility] Comment on above: Expected: 01/21/2025, Expires: Start: 01-21-2025 End: 04-22-2025 Cobalamin (Vitamin B12) [Mass/volume] in Serum or Plasma VITAMIN B12 Lab Routine Sinus bradycardia Expected: 01/21/2025, Expires: 04/22/2025 [facility] Comment on above: Expected: 01/21/2025, Expires: Start: 01-21-2025 End: 04-22-2025 Comprehensive metabolic 2000 panel - Serum or Plasma [facility] Comment on above: Expected: 01/21/2025, Expires: Start: 01-21-2025 End: 04-22-2025 Hemoglobin A1c in Blood HEMOGLOBIN A1C Lab Routine 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) Obesity, Class II, BMI 35-39.9 Restless legs syndrome Mixed hyperlipidemia Sinus bradycardia Aneurysm of ascending aorta without rupture MAXIMILIAN (obstructive sleep apnea) Essential hypertension 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, unspecified chronicity, unspecified laterality Screening for prostate cancer Screening for diabetes mellitus Expected: 01/21/2025, Expires: 04/22/2025 [facility] Comment on above: Expected: 01/21/2025, Expires: Start: 01-21-2025 End: 04-22-2025 LIPID PANEL, NONFASTING LIPID PANEL, NONFASTING Lab Routine Mixed hyperlipidemia Expected: 01/21/2025, Expires: 04/22/2025 [facility] Work Phone: Comment on above: Expected: 01/21/2025, Expires: Start: 01-21-2025 End: 04-22-2025 Magnesium [Mass/volume] in Serum or Plasma MAGNESIUM Lab Routine MAXIMILIAN (obstructive sleep apnea) Expected: 01/21/2025, Expires: 04/22/2025 [facility] Comment on above: Expected: 01/21/2025, Expires: Start: 01-21-2025 End: 04-22-2025 PSA/PROSTATE SPECIFIC ANTIGEN SCREENING PSA/PROSTATE SPECIFIC ANTIGEN SCREENING Lab Routine Screening for prostate cancer Expected: 01/21/2025, Expires: 04/22/2025 [facility] Comment on above: Expected: 01/21/2025, Expires: Start: 01-21-2025 End: 04-22-2025 Thyroglobulin and Thyrogobulin Ab panel - Serum or Plasma THYROGLOBULIN, SERUM WITH REFLEX TO IA OR LC-MS/MS Lab Routine 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) Obesity, Class II, BMI 35-39.9 Expected: 01/21/2025, Expires: 04/22/2025 [facility] Comment on above: Expected: 01/21/2025, Expires: Start: 01-21-2025 End: 04-22-2025 Thyrotropin [Units/volume] in Serum or Plasma THYROID STIMULATING HORMONE Lab Routine 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) Obesity, Class II, BMI 35-39.9 Expected: 01/21/2025, Expires: 04/22/2025 [facility] Work Phone: Comment on above: Expected: 01/21/2025, Expires: Start: 01-21-2025 End: 04-22-2025 Thyroxine (T4) free [Mass/volume] in Serum or Plasma T4 FREE/FREE THYROXINE Lab Routine 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) Obesity, Class II, BMI 35-39.9 Expected: 01/21/2025, Expires: 04/22/2025 [facility] Comment on above: Expected: 01/21/2025, Expires: Start: 01-21-2025 End: 04-22-2025 Triiodothyronine (T3) Free [Mass/volume] in Serum or Plasma T3, FREE Lab Routine 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) Obesity, Class II, BMI 35-39.9 Expected: 01/21/2025, Expires: 04/22/2025 [facility] Comment on above: Expected: 01/21/2025, Expires: Start: 01-21-2025 End: 04-22-2025 Urate [Mass/volume] in Serum or Plasma URIC ACID Lab Routine 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, unspecified chronicity, unspecified laterality Expected: 01/21/2025, Expires: 04/22/2025 [facility] Comment on above: Expected: 01/21/2025, Expires: Start: 01-13-2025 End: 01-13-2025 Patient encounter procedure 01/13/2025 9:40 AM EDT Office Visit Cardiology [address] [place] [address] Mild left ventricular systolic dysfunction [I51.89]; 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) [I71.21]; Essential hypertension [I10]; Mixed hyperlipidemia [E78.2]; Nonrheumatic mitral valve regurgitation [I34.0]; MAXIMILIAN (obstructive sleep apnea) [G47.33] Cardiology Comment on above: Mild left ventricular systolic dysfuncti on [I51.89]; 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) [I71.21]; Essential hypertension [I10]; Mixed hyperlipidemia [E78.2]; Nonrheumatic mitral valve regurgitation [I34.0]; MAXIMILIAN (obstructive sleep apnea) [G47.33] Start: 01-07-2025 End: 01-07-2025 Patient encounter procedure 01/07/2025 9:45 AM EDT Office Visit Dermatology [address] [place] [address] Ayaka Acevedo, LIANG.CR[employer] ENTER[employer]ISE INTEGRATOR [address] [place] [address] Rash on head Dermatology Comment on above: Rash on head Start: 01-01-2025 BP Controlled (<130/80) BP Controlled (<130/80) [facility] Start: 12-24-2024 BP Controlled (<130/80) BP Controlled (<130/80) [facility] Start: 12-04-2024 End: 06-06-2025 Echocardiography ECHO Cardiology Routine Mild left ventricular systolic dysfunction 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) Essential hypertension Mixed hyperlipidemia Nonrheumatic mitral valve regurgitation MAXIMILIAN (obstructive sleep apnea) Expected: 12/04/2024, Expires: 06/06/2025 [facility] Work Phone: Comment on above: Expected: 12/04/2024, Expires: Start: 11-12-2024 End: 11-12-2024 Patient encounter procedure 11/12/2024 10:20 AM EDT Office Visit Family Medicine [facility] [address] [place] [address] Zoraida Tavarez APRN.[employer] INTEGRATOR [address] [place], [place] [id number] Annual Wellness Visit Family Medicine [facility] Comment on above: Annual Wellness Visit Start: 10-04-2024 End: 10-04-2024 Patient encounter procedure 10/04/2024 1:30 PM EDT Office Visit Family Darian Contreras [address] [place] [address] Zohaib Grove V, DO [address] [place] [address] On going knee pain Family Medicine [facility] Comment on above: On going knee pain Start: 09-18-2024 Annual PCP Team Chronic Disease Visit Annual PCP Team Chronic Disease Visit [facility] Start: 09-17-2024 End: 09-17-2024 Patient encounter procedure 09/17/2024 8:00 AM EDT Office Visit Family Medicine [facility] [address] [place], [place] [phone] Zoraida Tavarez APRN.CR[employer] ENTER[employer]ISE INTEGRATOR [address] [place] [address] 6 month f/u Family Medicine [facility] Comment on above: 6 month f/u Start: 08-27-2024 End: 08-27-2024 Patient encounter procedure 08/27/2024 9:30 AM EDT Office Visit Urology [address] [place] [address] Chivo Bear PA-C [address] [place] [address] follow up Urology Comment on above: follow up Start: 08-21-2024 End: 09-20-2024 XR Abdomen Supine and Upright XR ABDOMEN 1V SUPINE Radiology Routine Kidney stones Expected: 08/21/2024, Expires: 09/20/2024 [facility] Work Phone: Comment on above: Expected: 08/21/2024, Expires: Start: 08-21-2024 End: 08-21-2024 Patient encounter procedure 08/21/2024 8:00 AM EDT Appointment Radiology [address] [place] [address] Kidney stones [N20.0] Radiology Comment on above: Kidney stones [N20.0] Start: 08-07-2024 BP Controlled (<130/80) BP Controlled (<130/80) [facility] in Start: 07-31-2024 End: 07-31-2024 ambulatory 07/31/2024 11:15 AM EST OT/PT/Speech Visit [facility] [address] [place] [address] Joyce Cleveland, PT Peripheral vertigo involving left ear [H81.392] [facility] Comment on above: Peripheral vertigo involving left ear [H 81.392] Start: 07-16-2024 End: 07-16-2024 ambulatory 07/16/2024 9:45 AM EST OT/PT/Speech Visit [facility] [address] [place] [address] Joyce Cleveland, PT Peripheral vertigo involving left ear [H81.392] [facility] Physical Therapy Comment on above: Peripheral vertigo involving left ear [H 81.392] Start: 07-01-2024 End: 07-01-2024 Patient encounter procedure Neurology Comment on above: 6 month follow up Start: 06-26-2024 Annual PCP Team Chronic Disease Visit Annual PCP Team Chronic Disease Visit [facility] Start: 06-26-2024 BP Controlled (<130/80) BP Controlled (<130/80) [facility] Start: 06-26-2024 Covid-19 Vaccine (#1) Covid-19 Vaccine (#1) [facility] Comment on above: Postponed from 03/31/1956 (Declined at t his time) Start: 06-26-2024 Covid-19 Vaccine () Covid-19 Vaccine ( season) [facility] Comment on above: Postponed from 02/03/2023 (Declined at t his time) Start: 06-26-2024 Pneumococcal Vaccine: 50+ (2 of 2 - PPSV23) Pneumococcal Vaccine: 50+ (2 of 2 - PPSV23) [facility] Comment on above: Postponed from 03/25/2020 (Declined at t his time) Start: 06-26-2024 Pneumococcal Vaccine: 65+ (2 of 2 - PPSV23 or PCV20) Pneumococcal Vaccine: 65+ (2 of 2 - PPSV23 or PCV20) [facility] Comment on above: Postponed from 03/25/2020 (Declined at t his time) Start: 06-26-2024 RSV Vaccine (1 - 1-dose 60+ series) RSV Vaccine (1 - 1-dose 60+ series) [facility] Comment on above: Postponed from 2013 (Declined at t his time) Start: 06-19-2024 End: 06-19-2024 Patient encounter procedure 06/19/2024 11:40 AM EST Office Visit Cardiology [address] [address] Caroline El DO [address] [place] [address] 6 month follow up Cardiology Comment on above: 6 month follow up Start: 06-05-2024 Advance Directive Discussion Advance Directive Discussion [facility] Start: 04-04-2024 Colonoscopy COLONOSCOPY [facility] Start: 04-04-2024 COLORECTAL CANCER SCREENING COLORECTAL CANCER SCREENING [facility] Start: 04-04-2024 Screening for malignant neoplasm of colon [facility] Start: 03-25-2024 End: 03-25-2024 Patient encounter procedure Cardiology Comment on above: 6 month follow up Start: 03-16-2024 BP Controlled (<130/80) BP Controlled (<130/80) [facility] Start: 02-22-2024 End: 02-22-2024 Follow-up encounter 02/22/2024 2:00 PM EDT [facility] Endocrinology [address] [place] [address] Elena Sepulveda V, MD [address] [place] [address] hypothyroid follow up Endocrinology Comment on above: hypothyroid follow up Start: 02-08-2024 End: 02-08-2024 ambulatory 02/08/2024 8:30 AM EDT Results Only [facility] [address] [place] [address] [facility] Start: 02-06-2024 End: 02-06-2024 Patient encounter procedure 02/06/2024 4:30 PM EDT Office Visit Dermatology [address] [place] [address] Alda Sky, 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 [address] [place] [address] Return for MD USE Slot - 2-3 weeks follow up lesion on the nose.. Dermatology Comment on above: Return for MD USE Slot - 2-3 weeks follo w up lesion on the nose.. Start: 02-04-2024 Covid-19 Vaccine () Covid-19 Vaccine () [facility] Start: 02-04-2024 Covid-19 Vaccine ( season) Covid-19 Vaccine () [facility] Start: 02-04-2024 Influenza vaccination [facility] Start: 01-30-2024 End: 01-30-2024 Patient encounter procedure 01/30/2024 10:00 AM EDT Office Visit [facility] [address] [place] [address] Bandar Graf PA-C [address] [place] [address] 6 month follow up [facility] Comment on above: 6 month follow up Start: 01-23-2024 End: 04-23-2024 Thyroglobulin and Thyrogobulin Ab panel - Serum or Plasma THYROGLOBULIN, SERUM WITH REFLEX TO IA OR LC-MS/MS Lab Routine 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) Expected: 01/23/2024, Expires: 04/23/2024 [facility] Comment on above: Expected: 01/23/2024, Expires: Start: 01-23-2024 End: 04-23-2024 Thyrotropin [Units/volume] in Serum or Plasma THYROID STIMULATING HORMONE Lab Routine 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) Expected: 01/23/2024, Expires: 04/23/2024 [facility] Work Phone: Comment on above: Expected: 01/23/2024, Expires: Start: 01-23-2024 End: 04-23-2024 Thyroxine (T4) free [Mass/volume] in Serum or Plasma T4 FREE/FREE THYROXINE Lab Routine 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) Expected: 01/23/2024, Expires: 04/23/2024 [facility] Comment on above: Expected: 01/23/2024, Expires: Start: 01-23-2024 End: 04-23-2024 Triiodothyronine (T3) Free [Mass/volume] in Serum or Plasma T3, FREE Lab Routine 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) Expected: 01/23/2024, Expires: 04/23/2024 [facility] Comment on above: Expected: 01/23/2024, Expires: Start: 01-02-2024 End: 01-02-2024 Patient encounter procedure 01/02/2024 2:00 PM EDT Office Visit Dermatology [address] [place] [id number] Alda Sky, 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 [address] [place] [address] spot on nose/lesions on head follow up Dermatology Comment on above: spot on nose/lesions on head follow up Start: 12-25-2023 End: 12-25-2023 Patient encounter procedure Family Medicine [facility] Comment on above: 6 month follow up Follow up MAXIMILIAN [facility] [facility] Start: 12-21-2023 End: 12-21-2023 Nursing evaluation of patient and report 12/21/2023 10:40 AM EDT Nurse Visit Dermatology [address] [place] [address] Nurse, Derm Surgery [address] [facility] [place] [address] suture removal Dermatology Comment on above: suture removal Start: 12-14-2023 End: 12-14-2023 Patient encounter procedure 12/14/2023 11:15 AM EDT Office Visit Dermatology [address] [facility] [place] [address] Jessica García MD [address] [place] [address] Mohs: BCC nasal dorsum, 2 pts Dermatology Comment on above: Mohs: BCC nasal dorsum, 2 pts Start: 12-13-2023 ANNUAL PCP TEAM CHRONIC DISEASE VISIT ANNUAL PCP TEAM CHRONIC DISEASE VISIT [facility] Start: 12-13-2023 BP CONTROLLED (<130/80) BP CONTROLLED (<130/80) [facility] Start: 12-13-2023 SHINGRIX VACCINE (1 of 2) SHINGRIX VACCINE (1 of 2) [facility] Comment on above: Postponed from 09/30/2003 (Insurance Cov erage) Start: 12-03-2023 Influenza vaccination Influenza Vaccine (#1) [facility] Comment on above: Postponed from 02/03/2023 (Declined at t his time) Start: 11-10-2023 ANNUAL PCP TEAM CHRONIC DISEASE VISIT ANNUAL PCP TEAM CHRONIC DISEASE VISIT [facility] Start: 11-10-2023 BP CONTROLLED (<130/80) BP CONTROLLED (<130/80) [facility] Start: 11-03-2023 End: 11-03-2023 Patient encounter procedure 11/03/2023 10:15 AM EDT Office Visit Dermatology [place] [address] [place] [id number] 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 APRN.[employer] ENTER[employer]ISE INTEGRATOR [address] [place] [address] Spot on nose came back/bleeding some Dermatology [place] Comment on above: Spot on nose came back/bleeding some Start: 10-17-2023 End: 10-17-2023 Follow-up encounter 10/17/2023 10:40 AM EDT [facility] [address] [place] [address] Elena Sepulveda V, MD [address] [place] [address] Yearly Follow Up Thyroid Endocrinology Comment on above: Yearly Follow Up Thyroid Start: 10-16-2023 Patient discharge [facility] Start: 10-15-2023 Following clinical pathway protocol [facility] Start: 10-15-2023 Ambulation without limitation [facility] Start: 10-15-2023 [facility] Start: 10-15-2023 Admission procedure [facility] Start: 10-15-2023 Hospital admission, emergency, from emergency room, medical nature [facility] Start: 10-14-2023 [facility] Start: 09-15-2023 BP CONTROLLED (<130/80) BP CONTROLLED (<130/80) [facility] Start: 07-09-2023 PROSTATE CANCER SCREENING DISCUSSION PROSTATE CANCER SCREENING DISCUSSION [facility] Start: 06-28-2023 [facility] Start: 06-27-2023 [facility] Start: 06-14-2023 End: 08-14-2023 CBC W Auto Differential panel - Blood CBC + DIFF Lab Routine Essential hypertension Expected: 06/14/2023, Expires: 08/14/2023 [facility] Work Phone: Comment on above: Expected: 06/14/2023, Expires: 4 Start: 06-14-2023 End: 08-14-2023 Comprehensive metabolic 2000 panel - Serum or Plasma COMP METABOLIC PANEL Lab Routine Essential hypertension Mixed hyperlipidemia Expected: 06/14/2023, Expires: 08/14/2023 [facility] Work Phone: Comment on above: Expected: 06/14/2023, Expires: 4 Start: 06-14-2023 End: 08-14-2023 Lipid 1996 panel - Serum or Plasma LIPID PANEL BASIC Lab Routine Mixed hyperlipidemia Expected: 06/14/2023, Expires: 08/14/2023 [facility] Work Phone: Comment on above: Expected: 06/14/2023, Expires: 4 Start: 06-13-2023 ANNUAL PCP TEAM CHRONIC DISEASE VISIT ANNUAL PCP TEAM CHRONIC DISEASE VISIT [facility] Start: 06-13-2023 BP CONTROLLED (<130/80) BP CONTROLLED (<130/80) [facility] Start: 06-13-2023 COVID-19 VACCINE (#1) COVID-19 VACCINE (#1) [facility] Comment on above: Postponed from 03/31/1956 (Declined at t his time) Start: 06-13-2023 Pneumococcal Vaccine: 65+ (2 - PPSV23 or PCV20) Pneumococcal Vaccine: 65+ (2 - PPSV23 or PCV20) [facility] Comment on above: Postponed from 03/25/2020 (Declined at t his time) Start: 06-13-2023 PNEUMOCOCCAL: 65+ (2 - PPSV23 if available, else PCV20) PNEUMOCOCCAL: 65+ (2 - PPSV23 if available, else PCV20) [facility] Comment on above: Postponed from 03/25/2020 (Declined at t his time) Start: 06-13-2023 PNEUMOCOCCAL: 65+ (2 - PPSV23 or PCV20) PNEUMOCOCCAL: 65+ (2 - PPSV23 or PCV20) [facility] Comment on above: Postponed from 03/25/2020 (Declined at t his time) Start: 06-05-2023 Advance Directive Discussion Advance Directive Discussion [facility] Start: 06-05-2023 Behavioral Health Screening Behavioral Health Screening [facility] Start: 06-05-2023 Depression Assessment Depression Assessment [facility] Start: 06-05-2023 End: 08-05-2023 Thyroglobulin and Thyrogobulin Ab panel - Serum or Plasma THYROGLOBULIN, SERUM WITH REFLEX TO IA OR LC-MS/MS Lab Routine 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) Expected: 06/05/2023, Expires: 08/05/2023 [facility] Work Phone: Comment on above: Expected: 06/05/2023, Expires: Start: 06-05-2023 End: 08-05-2023 Thyrotropin [Units/volume] in Serum or Plasma TSH BLD Lab Routine 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) Expected: 06/05/2023, Expires: 08/05/2023 [facility] Work Phone: Comment on above: Expected: 06/05/2023, Expires: 4 Start: 06-05-2023 End: 08-05-2023 Thyroxine (T4) free [Mass/volume] in Serum or Plasma T4 FREE/FREE THYROX Lab Routine 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) Expected: 06/05/2023, Expires: 08/05/2023 [facility] Work Phone: Comment on above: Expected: 06/05/2023, Expires: 4 Start: 06-05-2023 End: 08-05-2023 Triiodothyronine (T3) Free [Mass/volume] in Serum or Plasma T3 FREE BLD Lab Routine 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) Expected: 06/05/2023, Expires: 08/05/2023 [facility] Work Phone: Comment on above: Expected: 06/05/2023, Expires: Start: 06-01-2023 DIABETES SCREEN DIABETES SCREEN [facility] Start: 02-03-2023 Influenza vaccination [facility] Start: 01-21-2023 BP CONTROLLED (<130/80) BP CONTROLLED (<130/80) [facility] Start: 12-14-2022 End: 02-13-2023 Hepatic function 2000 panel - Serum or Plasma HEPATIC FUNCTION PNL Lab Routine Mixed hyperlipidemia Expected: 12/14/2022 (Approximate), Expires: 02/13/2023 [facility] Work Phone: Comment on above: Expected: 12/14/2022 (Approximate), Expi res: 02/13/2023 Start: 12-14-2022 End: 02-13-2023 Lipid 1996 panel - Serum or Plasma LIPID PANEL BASIC Lab Routine Mixed hyperlipidemia Expected: 12/14/2022 (Approximate), Expires: 02/13/2023 [facility] Work Phone: Comment on above: Expected: 12/14/2022 (Approximate), Expi res: 02/13/2023 Start: 12-02-2022 Influenza vaccination INFLUENZA (#1) [facility] Comment on above: Postponed from 02/03/2022 (Declined at t his time) Start: 11-25-2022 BP CONTROLLED (<130/80) BP CONTROLLED (<130/80) [facility] Start: 11-24-2022 Adult depression screening assessment DEPRESSION SCREENING [facility] Start: 11-09-2022 End: 01-09-2023 Urate [Mass/volume] in Serum or Plasma [facility] Work Phone: Comment on above: Expected: 11/09/2022, Expires: Start: 08-20-2022 End: 06-22-2023 Prostate specific Ag [Mass/volume] in Serum or Plasma PSA/PROSTSPECAG DIAG Lab Routine Elevated PSA Expected: 08/20/2022, Expires: 06/22/2023 [facility] Work Phone: Comment on above: Expected: 08/20/2022, Expires: 4 Start: 07-06-2022 BP CONTROLLED (<130/80) BP CONTROLLED (<130/80) [facility] Start: 06-05-2022 ADVANCE DIRECTIVE DISCUSSION ADVANCE DIRECTIVE DISCUSSION [facility] Start: 06-05-2022 DEPRESSION ASSESSMENT DEPRESSION ASSESSMENT [facility] Start: 02-03-2022 Influenza vaccination [facility] Start: 01-21-2022 End: 02-04-2022 Influenza virus A and B RNA and SARS-CoV-2 (COVID-19) N gene panel - Respiratory specimen by MABLE with probe detection COVID WITH FLUA+B, ROUTINE Microbiology Routine At increased risk of exposure to COVID-19 virus Acute upper respiratory infection, unspecified Expected: 01/21/2022, Expires: 02/04/2022 [facility] Work Phone: Comment on above: Expected: 01/21/2022, Expires: 2 Start: 10-13-2021 Adult depression screening assessment DEPRESSION SCREENING [facility] Start: 06-19-2021 ANNUAL PCP TEAM CHRONIC DISEASE VISIT ANNUAL PCP TEAM CHRONIC DISEASE VISIT [facility] Start: 06-05-2021 ADVANCE DIRECTIVE DISCUSSION ADVANCE DIRECTIVE DISCUSSION [facility] Start: 06-05-2021 DEPRESSION ASSESSMENT DEPRESSION ASSESSMENT [facility] Start: 03-25-2020 Pneumococcal Vaccine: 50+ (2 of 2 - PPSV23) Pneumococcal Vaccine: 50+ (2 of 2 - PPSV23) [facility] Start: 03-25-2020 PNEUMOCOCCAL: 65+ (2 - PPSV23 if available, else PCV20) PNEUMOCOCCAL: 65+ (2 - PPSV23 if available, else PCV20) [facility] Start: 03-25-2020 PNEUMOCOCCAL: 65+ (2 - PPSV23 or PCV20) PNEUMOCOCCAL: 65+ (2 - PPSV23 or PCV20) [facility] Start: 2018 PNEUMOVAX AGE 65 AND OVER WITH 5YR LOOKBACK (#1) PNEUMOVAX AGE 65 AND OVER WITH 5YR LOOKBACK (#1) [facility] Start: 2013 RSV Vaccine (1 - 1-dose 60+ series) RSV Vaccine (1 - 1-dose 60+ series) [facility] Start: 08-07-2010 Urine microalbumin profile DTAP,TDAP,TD (1 - Tdap) [facility] Start: 09-30-2003 SHINGRIX VACCINE (1 of 2) SHINGRIX VACCINE (1 of 2) [facility] Start: 1998 COLOGUARD (FIT-DNA) COLOGUARD (FIT-DNA) [facility] Start: [address] COLONOGRAPHY [facility] Start: 1998 FECAL OCCULT BLOOD FECAL OCCULT BLOOD [facility] Start: 1998 Screening for malignant neoplasm of colon [facility] Start: 1998 SIGMOIDOSCOPY SIGMOIDOSCOPY [facility] Start: 1972 SHINGRIX VACCINE (1 of 2) SHINGRIX VACCINE (1 of 2) [facility] Start: 09-30-1971 Anxiety Screening Anxiety Screening [facility] Start: 09-30-1971 BP CONTROLLED (<130/80) BP CONTROLLED (<130/80) [facility] Start: 09-30-1971 Depression Screening Depression Screening [facility] Start: 1958 COVID-19 VACCINE (#1) COVID-19 VACCINE (#1) [facility] Start: 1958 COVID-19 VACCINE (1) COVID-19 VACCINE (1) [facility] Start: 03-31-1954 COVID-19 VACCINE (#1) COVID-19 VACCINE (#1) [facility] ECG COMPLETE ECG COMPLETE ECG 09/14/2022 10:27 AM EDT [facility] End: 09-15-2023 Echocardiography ECHO Cardiology Routine Ascending aorta dilatation (HCC) 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) 1 Occurrences starting 09/14/2022 until 09/15/2023 [facility] Work Phone: Comment on above: 1 Occurrences starting 09/14/2022 until 09/15/2023 End: 09-14-2024 Echocardiography ECHO Cardiology Routine 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) 1 Occurrences starting 09/15/2023 until 09/14/2024 [facility] Work Phone: Comment on above: 1 Occurrences starting 09/15/2023 until 09/14/2024 Patient Education ED Kidney Ston e with Pain [facility] Work Phone: Patient referral [facility] Work Phone: Pdt dstr prmlg les s kn illum/activj per day PHOTODYNAMIC TX SKIN LESION Procedures Routine Actinic keratosis Ordered: 01/11/2023 [facility] Work Phone: Comment on above: Ordered: 01/11/2023 SURGICAL PATHOLOGY SURGICAL PATH OLOGY Lab Routine Neoplasm of unspecified behavior of bone, soft tissue, and skin 11/03/2023 9:48 AM EDT [facility] Work Phone: End: 07-31-2025 XR Foot - left AP and Lateral and oblique XR FOOT GENERAL 3V AP/LAT/OBL LEFT Radiology Routine Hammer toe of left foot 1 Occurrences starting 07/01/2024 until 07/31/2025 [facility] Work Phone: Comment on above: 1 Occurrences starting 07/01/2024 until 07/31/2025 XR Foot - left AP an d Lateral and oblique XR FOOT GENERAL 3V AP/LAT/OBL LEFT Radiology Routine Hammer toe of left foot 07/01/2024 11:43 AM EST [facility] End: 11-03-2025 XR Knee - bilateral 4 Views XR KNEE GENERAL 4V AP BOTH/PA BOTH/LAT/MERC BILATERAL Radiology Routine Pain in both knees, unspecified chronicity 1 Occurrences starting 10/04/2024 until 11/03/2025 [facility] Work Phone: Comment on above: 1 Occurrences starting 10/04/2024 until 11/03/2025 XR Knee - bilateral 4 Views XR KNEE GENERAL 4V AP BOTH/PA BOTH/LAT/MERC BILATERAL Radiology Routine Pain in both knees, unspecified chronicity 10/04/2024 1:22 PM EDT [facility] Work Phone: [facility] Immunizations Immunization Date Immunization Notes Care Provider Fa ciliaraceli 06-13-2022 tetanus toxoid, redu tiara diphtheria toxoid, and acellular pertussis vaccine, adsorbed Anthony Loredo Jr., MD Work Phone: [facility] 03-23-2020 influenza, high-dose , quadrivalent vaccine (FLUZONE HIGH DOSE QUADRIVALENT) Gail Lebron PA-C Work Phone: [facility] Work Phone: 03-23-2020 influenza virus vaccine, unspecified formulation Anthony Loredo Jr., MD Work Phone: [facility] 03-25-2019 influenza, high dose seasonal, preservative-free Gail Lebron PA-C Work Phone: [facility] Work Phone: 03-25-2019 pneumococcal conjuga te vaccine, 13 valent Gail Lebron PA-C Work Phone: [facility] Work Phone: 05-14-2018 influenza, injectabl e, quadrivalent, contains preservative Gail Lebron PA-C Work Phone: [facility] 02-27-2017 influenza, injectabl e, quadrivalent, contains preservative Gail Lebron PA-C Work Phone: [facility] 03-19-2016 influenza, seasonal, injectable Gail Lebron PA-C Work Phone: [facility] 08-06-2010 tetanus and diphther ia toxoids, not adsorbed, for adult use Gail Lebron PA-C Work Phone: [facility] Payers Date Payer Category Payer Self-pay [id number] 2019 Medicare MEDICARE MEDICAR E A AND B [id number] 2019-Present [phone] [place] [address] Medicare [id number] 2019 Medicare [id number] 2019 Private Health Insurance [employer] [id number] 2019 Unknown [employer] [id number] 2019-Present [phone] [place] [address] Indemnity [id number] 2019 Unknown [employer] [id number] 2019-Present [phone] [place] [address] Indemnity [id number] 2019 Medicare [id number] 2019 Unknown [id number] 2010 Unknown [employer] [id number] Unknown [id number] Unknown [id number] Unknown [id number] Unknown [id number] Social History Date Type Detail Facility Start: 09-17-2010 Tobacco smoking stat us NHIS Never smoked tobacco [facility] Work Phone: Start: 09-17-2010 Tobacco use and exposure Smokeless tobacco non-user [facility] Work Phone: Start: 07-06-2021 End: 08-01-2023 Alcohol intake Current non-drinker of alcohol (finding) [facility] Start: 1955 Sex Assigned At Male C [facility] Start: 09-05-2021 End: 04-04-2022 Exposure to SARS-CoV-2 (event) Not sure [facility] Start: 06-17-2022 End: 12-12-2022 History of Social function [facility] Start: 06-17-2022 End: 12-12-2022 Tobacco use panel [facility] Start: 05-06-2012 Adult Depression Screening Assessment 0 [facility] Start: 09-05-2019 Gender identity Identifies as male gender (finding) [facility] Start: 09-05-2019 Sexual orientation Heterosexual (fin ding) [facility] Start: 06-27-2023 End: 10-15-2023 Tobacco smoking status NHIS Unknown if ever smoked [facility] Are you now , , , , never or living with a partner? Refused [facility] Do you feel stress - tense, restless, nervous, or anxious, or unable to sleep at night because your mind is troubled all the time - these days [OSQ] Not at all [facility] (I/We) worried wheth er (my/our) food would run out before (I/we) got money to buy more. DK or Refused [facility] Start: 08-22-2023 End: 11-12-2024 Alcohol intake Ex-drinker (finding) [facility] Has the [employer] or [employer] threatened to shut off services in your home in past 12Mo No [facility] Are you now , , , , never or living with a partner? [facility] How often to you hav e a drink containing alcohol? Never [facility] (I/We) worried wheth er (my/our) food would run out before (I/we) got money to buy more. Never true [facility] Functional Status Date Assessment Result Facility 10-16-2023 Functional status Ambulates [facility] Work Phone: 11-18-2014 Are you deaf, or do you have serious difficulty hearing No 11/18/2014 11:20 AM Mahsa Lee LPN No [facility] 11-18-2014 Are you blind, or do you have serious difficulty seeing, even when wearing glasses No 11/18/2014 11:20 AM Mahsa Lee LPN No [facility] 11-18-2014 Do you have serious difficulty walking or climbing stairs No 11/18/2014 11:20 AM Mahsa Lee LPN No [facility] 11-18-2014 Do you have difficul ty dressing or bathing No 11/18/2014 11:20 AM Mahsa Lee LPN No [facility] 11-18-2014 Because of a physica l, mental, or emotional condition, do you have difficulty doing errands alone such as visiting a physician's office or shopping No 11/18/2014 11:20 AM Mahsa Lee LPN No [facility] Mental Status Date Assessment Result Facility 10-16-2023 Cognitive function Level Of Cons ciousness Awake;Alert;Appropriate;Fol lows Commands [facility] Work Phone: 10-16-2023 Cognitive function Voice/Name [facility] Work Phone: 11-18-2014 Because of a physica l, mental, or emotional condition, do you have serious difficulty concentrating, remembering, or making decisions No 11/18/2014 11:20 AM EDT Mahsa Johnson LPN No [facility] Clinical Notes 07-08-2019 to 01-15-2025 Telephone Encounter - Marry Hernandez RN - 01/15/2025 10:20 AM EDTTelephone Encounter - Marry Hernandez RN - 01/15/2025 10:20 AM EDTTelephone Encounter - Francisca Amanda - 01/15/2025 9:03 AM EDT Note Date & Type Note Facility 01-15-2025 Telephone encounter Note EPA initiated [facility] 01-15-2025 Miscellaneous Notes EPA initiated Patient has been scheduled for 01/28 with Ayaka. Had questions about the following prescription: roflumilast (ZORYVE) 0.3 % foam 60 g 3 01/07/2025 -- Sig: Apply to affected area once daily. Sent to pharmacy as: roflumilast (ZORYVE) 0.3 % foam Class: Normal Notes to Pharmacy: Previously failed treatment with black tar shampoo, ketoconazole, calcipotriene, clobetasol Route: TOPICAL Order: [id number] E-Prescribing Status: Receipt confirmed by pharmacy (01/07/2025 9:47 AM EDT) States insurance was needing a potential auth Patient's spouse, Patricia calling to request orders for Patient to see ÁNGELA Mcdonald [facility] for a procedure on his nose that he needs repeated. Please contact Patricia to advise [phone] Thank you documented in this encounter [facility] 01-15-2025 Telephone encounter Note Patient has been scheduled for 01/28 with Ayaka. Had questions about the following prescription: roflumilast (ZORYVE) 0.3 % foam 60 g 3 01/07/2025 -- Sig: Apply to affected area once daily. Sent to pharmacy as: roflumilast (ZORYVE) 0.3 % foam Class: Normal Notes to Pharmacy: Previously failed treatment with black tar shampoo, ketoconazole, calcipotriene, clobetasol Route: TOPICAL Order: [id number] E-Prescribing Status: Receipt confirmed by pharmacy (01/07/2025 9:47 AM EDT) States insurance was needing a potential auth [facility] 01-13-2025 Telephone encounter Note Patient's spouse, Patricia calling to request orders for Patient to see ÁNGELA Mcdonald [facility] for a procedure on his nose that he needs repeated. Please contact Patricia to advise [phone] Thank you [facility] 01-07-2025 Instructions Ayaka Acevedo APRN.[facility] - 01/07/2025 9:48 AM EDT - Use the ketoconazole shampoo I sent to you three times per week. Apply it to your wet scalp, leave it on for five minutes, then rinse. Focus especially on the area with the plaque. 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 The pharmacy will call you when it s ready after the prior authorization. - If your insurance won t cover the shampoo or foam, use the [employer] coupon card provided to reduce your cost. - The clobetasol 0.05% ointment has been discontinued and will no longer be refilled. - Follow up in three months to check how your scalp is responding and to adjust your treatment. We will notify you when your foam prescription is approved and ready for pickup. documented in this encounter [facility] 01-07-2025 History of Presen t illness Narrative EST PATIENT ENIO in Dermatology: 02/06/2024 Chief Complaint: Dermatitis History of Present Ilness: Lynn Schreiber is a 69 year old male who presents today for a focused skin examination. 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 Medication List is reviewed. ROS: Skin as above. Physical Exam: Barrera skin type: II The patient is a pleasant male in no apparent distress. Alert and oriented x 3. 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 - Start ketoconazole shampoo; instructed to apply 3 times per week, leave on scalp for 5 minutes before rinsing, focusing on affected plaque area. - Provided [employer] card for ketoconazole shampoo to reduce [id number] cost. - Prescribed Zoryve 0.3% foam to be applied once daily. - Advised patient to wait for pharmacy notification before picking up foam medication; will address alternatives if not covered. - Follow-up in 3 months to assess response to treatment. Related Medications ketoconazole (NIZORAL) 2 % shampoo Apply to wet hair and let sit for 5-10 min before rinsing. Use 2-3 times weekly or as needed to control symptoms. roflumilast (ZORYVE) 0.3 % foam Apply to affected area once daily. Sunscreen and sun protection reviewed. Should any areas change in size, shape or color, bleed or become tender, the patient will contact the office for evaluation sooner than their interval appointment. Follow up: 3 months Intake by Keri Ferro RN Recording using [employer] software for draft documentation of the visit was discussed with the patient/authorized patient relations representative; all questions welcomed and answered. Patient/authorized patient relations representative agreed to proceed I agree with the Chief Complaint, ROS, and Past Histories independently gathered by the clinical direct support specialist and the remaining scribed note accurately describes my personal service to the patient. Ayaka Acevedo APRN.[facility] documented in this encounter [facility] 01-07-2025 Note HNO ID: [id number] Author: AYAKA ACEVEDO APRN.[facility] Service: ? Author Type: Nurse Practitioner Type: Progress Notes Filed: 01/07/2025 09:48 Note Text: EST PATIENT ENIO in Dermatology: 02/06/2024 Chief Complaint: Dermatitis History of Present Ilness: Lynn Schreiber is a 69 year old male who presents today for a focused skin examination. 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 Medication List is reviewed. ROS: Skin as above. Physical Exam: Barrera skin type: II The patient is a pleasant male in no apparent distress. Alert and oriented x 3. 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 - Start ketoconazole shampoo; instructed to apply 3 times per week, leave on scalp for 5 minutes before rinsing, focusing on affected plaque area. - Provided [employer] card for ketoconazole shampoo to reduce [id number] cost. - Prescribed Zoryve 0.3% foam to be applied once daily. - Advised patient to wait for pharmacy notification before picking up foam medication; will address alternatives if not covered. - Follow-up in 3 months to assess response to treatment. Related Medications ketoconazole (NIZORAL) 2 % shampoo Apply to wet hair and let sit for 5-10 min before rinsing. Use 2-3 times weekly or as needed to control symptoms. roflumilast (ZORYVE) 0.3 % foam Apply to affected area once daily. Sunscreen and sun protection reviewed. Should any areas change in size, shape or color, bleed or become tender, the patient will contact the office for evaluation sooner than their interval appointment. Follow up: 3 months Intake by Keri Ferro RN Recording using [employer] software for draft documentation of the visit was discussed with the patient/authorized patient relations representative; all questions welcomed and answered. Patient/authorized patient relations representative agreed to proceed I agree with the Chief Complaint, ROS, and Past Histories independently gathered by the clinical direct support specialist and the remaining scribed note accurately describes my personal service to the patient. Ayaka Acevedo APRN.[facility] 11-12-2024 Note Addended by: ZORAIDA TAVAREZ on: 11/12/2024 09:55 AM Modules accepted: Orders [facility] 11-12-2024 Miscellaneous Notes Addended by: ZORAIDA TAVAREZ on: 11/12/2024 09:55 AM Modules accepted: Orders documented in this encounter [facility] [facility] 11-12-2024 Instructions Zoraida Tavarez APRN.CNP - 11/12/2024 9:52 AM EDT - Laboratory tests have been ordered for thyroid function, vitamin B12 level, uric acid, and PSA. Please schedule these blood tests in January, ideally two weeks before your appointment with Dr. Ramirez. - You have an echocardiogram scheduled in January to monitor your known aortic aneurysm. - Watch for any persistent or worsening tingling in your knee or arm and let us know if these symptoms continue. - documented in this encounter [facility] 11-12-2024 Note HNO ID: [id number] Author: ZORAIDA TAVAREZ APRN.CNP Service: ? Author Type: Nurse Practitioner Type: Progress Notes Filed: 11/12/2024 09:53 Note Text: Chief Reason For Appointment No chief complaint on file. Lynn Schreiber is a 69 year old male who presents for annual exam. Last office visit date: 03/19/2024 Accompanied By spouse, Patricia Have you had any critical events, hospital stays, ER visits, surgeries or procedures since your last visit here in our office: No Specialists/Other Healthcare Providers Seen: Patient Care Team: Zoraida Tavarez APRN.CNP as PCP - General (Family Medicine) Caroline El DO as Heel Scourer (Cardiology) Concerns today: Edward Schreiber is a 69-year-old male with a history of hypothyroidism, aortic aneurysm, and gout, presenting for an annual wellness visit, with additional complaints of paresthesias, chronic knee pain, and hearing loss. HPI Annual Wellness Exam: - Scheduled thyroid labs in January, prior to appointment with Dr. Ladd in February. - Scheduled echocardiogram in January. - Denies recent weight loss, weight gain, fever, chills, or changes in vision. - Denies chest pain, leg swelling, or orthopnea. - Denies nausea, emesis, diarrhea, constipation, dysuria, hematuria, or excessive thirst. - Denies syncope, seizures, tremors, or suicidal ideation. Paresthesias: - Recent onset of tingling sensation in the left knee and left arm. - Describes sensation as little electrodes or like a fly or something walking across the skin. - Denies associated pain. - Chronic neck stiffness, attributed to CPAP use. Chronic Knee Pain: - Bilateral knee pain, described as aching and cracking. - Recent gel injection in the knee provided no relief. - X-ray showed arthritis and a bone spur. - Denies need for further intervention at this time. Hearing Loss: - Progressive hearing loss over several years. - Constant chirping and heartbeat sounds in ears, attributed to a blood vessel close to the inner ear. - Denies interest in hearing aids. Aortic Aneurysm: - Scheduled echocardiogram in January. Gout: - History of gout, previously managed with allopurinol. - Denies recent gout attacks. Active Problems ACTIVE PROBLEM LIST Encounter for Support and Coordination of Transition of Care - 11/20/2023 Comment: Hospital admission [facility] 10/14/2023 - 10/15/2023 Discharge diagnoses: Left proximal ureteral calculi Records: Presented to [facility] emergency department on 10/14/2023 with severe pain in the left side. CT demonstrated 5 to 6 mm stone in proximal left ureter. Patient was started on Flomax with IV hydration , mated overnight for IV hydration with intention for cystoscopy with left ureteroscopy and laser lithotripsy of stone with stent placement to pass the stone. Vital signs are stable. CBC demonstrated the following abnormals: RBC 3.92L-Hgb 11.5 L-HCT 35.2 L, RDW SD 45. 6H, neutrophil percent 76.7 H, lymph percent 12.1 L. Chemistries: Chloride 109H, anion gap 4L-BUN 22 H-CRE 2.10H, eGFR 33 L Urinalysis demonstrated no bacteria or cells. CT demonstrated stone in the proximal ureter Patient was given IV fluids and Zofran in the ER Consult placed with Dr. David Weeks: Recommended outpatient procedures. New medication: Ciprofloxacin 500 mg p.o. twice daily #10 Sinus Bradycardia - 07/06/2021 Aneurysm of Ascending Aorta Without Rupture - 07/06/2021 Mild Pulmonary Hypertension (Hcc) - 07/06/2021 Essential Hypertension - 07/06/2021 Maximilian (Obstructive Sleep Apnea) - 10/20/2020 Comment: DME; [facility] PH# [phone]------FAX# [phone] Restless Legs Syndrome - 10/20/2020 Mild Left Ventricular Systolic Dysfunction - 07/08/2019 Insomnia - 07/08/2019 Comment: Uses PAP/D[facility] (Download [employer]) DME; [facility] PH# [phone]------FAX# [phone] Post-Surgical Hypothyroidism - 05/07/2018 Obesity, Class II, Bmi 35-39.9 - 10/25/2017 Chronic Midline Low Back Pain Without Sciatica - 06/14/2016 Comment: Sees Dr. 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 Mike Suresh Tinnitus - 08/06/2010 Gout - 03/23/2009 Comment: Age 48 at first flare; Usually in the right 5th MTP joint ROS: Ears/Nose/Mouth/Throat: (+) hearing loss, (+) tinnitus Cardiovascular: (-) chest pain, (-) palpitations, (-) leg swelling Respiratory: (+) chronic cough, (+) exertional dyspnea, (-) orthopnea, (-) wheezing Gastrointestinal: (-) nausea, (-) vomiting, (-) diarrhea, (-) constipation Genitourinary: (-) dysuria, (-) hematuria Musculoskeletal: (+) neck pain, (+) neck stiffness, (+) knee pain, (-) myalgias Skin: (+) excessive sweating Neurological: (+) tingling left (more content not included)... [facility] 11-12-2024 History of Presen t illness Narrative Chief Reason For Appointment No chief complaint on file. Lynn Schreiber is a 69 year old male who presents for annual exam. Last office visit date: 03/19/2024 Accompanied By spouse, Patricia Have you had any critical events, hospital stays, ER visits, surgeries or procedures since your last visit here in our office: No Specialists/Other Healthcare Providers Seen: Patient Care Team: Zoraida Tavarez APRN.CROSS ENTERPRISE INTEGRATOR as PCP - General (Family Medicine) Caroline El DO as Heel Scourer (Cardiology) Concerns today: Edward Schreiber is a 69-year-old male with a history of hypothyroidism, aortic aneurysm, and gout, presenting for an annual wellness visit, with additional complaints of paresthesias, chronic knee pain, and hearing loss. HPI Annual Wellness Exam: - Scheduled thyroid labs in January, prior to appointment with Dr. Ladd in February. - Scheduled echocardiogram in January. - Denies recent weight loss, weight gain, fever, chills, or changes in vision. - Denies chest pain, leg swelling, or orthopnea. - Denies nausea, emesis, diarrhea, constipation, dysuria, hematuria, or excessive thirst. - Denies syncope, seizures, tremors, or suicidal ideation. Paresthesias: - Recent onset of tingling sensation in the left knee and left arm. - Describes sensation as little electrodes or like a fly or something walking across the skin. - Denies associated pain. - Chronic neck stiffness, attributed to CPAP use. Chronic Knee Pain: - Bilateral knee pain, described as aching and cracking. - Recent gel injection in the knee provided no relief. - X-ray showed arthritis and a bone spur. - Denies need for further intervention at this time. Hearing Loss: - Progressive hearing loss over several years. - Constant chirping and heartbeat sounds in ears, attributed to a blood vessel close to the inner ear. - Denies interest in hearing aids. Aortic Aneurysm: - Scheduled echocardiogram in January. Gout: - History of gout, previously managed with allopurinol. - Denies recent gout attacks. Active Problems ACTIVE PROBLEM LIST Encounter for Support and Coordination of Transition of Care - 11/20/2023 Comment: Hospital admission [facility] 10/14/2023 - 10/15/2023 Discharge diagnoses: Left proximal ureteral calculi Records: Presented to [facility] emergency department on 10/14/2023 with severe pain in the left side. CT demonstrated 5 to 6 mm stone in proximal left ureter. Patient was started on Flomax with IV hydration , mated overnight for IV hydration with intention for cystoscopy with left ureteroscopy and laser lithotripsy of stone with stent placement to pass the stone. Vital signs are stable. CBC demonstrated the following abnormals: RBC 3.92L-Hgb 11.5 L-HCT 35.2 L, RDW SD 45. 6H, neutrophil percent 76.7 H, lymph percent 12.1 L. Chemistries: Chloride 109H, anion gap 4L-BUN 22 H-CRE 2.10H, eGFR 33 L Urinalysis demonstrated no bacteria or cells. CT demonstrated stone in the proximal ureter Patient was given IV fluids and Zofran in the ER Consult placed with Dr. David Weeks: Recommended outpatient procedures. New medication: Ciprofloxacin 500 mg p.o. twice daily #10 Sinus Bradycardia - 07/06/2021 Aneurysm of Ascending Aorta Without Rupture - 07/06/2021 Mild Pulmonary Hypertension (Hcc) - 07/06/2021 Essential Hypertension - 07/06/2021 Maximilian (Obstructive Sleep Apnea) - 10/20/2020 Comment: [facility] PH# [phone]------FAX# [phone] Restless Legs Syndrome - 10/20/2020 Mild Left Ventricular Systolic Dysfunction - 07/08/2019 Insomnia - 07/08/2019 Comment: Uses PAP/DME [facility] ([facility]) DME; [place] PH# [phone]------FAX# [phone] Post-Surgical Hypothyroidism - 05/07/2018 Obesity, Class II, Bmi 35-39.9 - 10/25/2017 Chronic Midline Low Back Pain Without Sciatica - 06/14/2016 Comment: Sees Dr. 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 Mkie Suresh Tinnitus - 08/06/2010 Gout - 03/23/2009 Comment: Age 48 at first flare; Usually in the right 5th MTP joint ROS: Ears/Nose/Mouth/Throat: (+) hearing loss, (+) tinnitus Cardiovascular: (-) chest pain, (-) palpitations, (-) leg swelling Respiratory: (+) chronic cough, (+) exertional dyspnea, (-) orthopnea, (-) wheezing Gastrointestinal: (-) nausea, (-) vomiting, (-) diarrhea, (-) constipation Genitourinary: (-) dysuria, (-) hematuria Musculoskeletal: (+) neck pain, (+) neck stiffness, (+) knee pain, (-) myalgias Skin: (+) excessive sweating Neurological: (+) tingling left arm, (+) tingling knee, (+) vertigo, (-) syncope, (-) seizures, (-) tremors Psychiatric: (-) hopelessness, (-) helplessness, (-) suicidal thoughts Endocrine: (-) polydipsia PAST MEDICAL HISTORY Diagnosis Date Ascending aorta dilatation Basal cell cancer Decreased peripheral vision of left eye Elevated prostate specific antigen (PSA) Essential hypertension 07/06/2021 GERD (gastroesophageal reflux disease) Gout Jeffry's thyroiditis with thyroid nodules Kidney stones 06/27/2023 Mild left ventricular systolic dysfunction Mild pulmonary [...] LEG <0.5 CM 12-23-10 THYROIDECTOMY TOTAL/COMPLETE 12-23-10 Medication List Current Outpatient Medications Medication Sig Dispense Refill levothyroxine (SYNTHROID) 137 mcg tablet Take 1 tablet by mouth once daily. Except none on sundays 90 tablet 0 allopurinol (ZYLOPRIM) 300 mg tablet Take 1 tablet by mouth once daily. 90 tablet 3 gabapentin (NEURONTIN) 300 mg capsule TAKE 1 CAPSULE BY MOUTH in evening THEN 2-3 CAPSULES AT bedtime. 360 capsule 1 lisinopril (ZESTRIL) 5 mg tablet Take 1 tablet by mouth once daily. 90 tablet 3 rosuvastatin (CRESTOR) 20 mg tablet Take 1 tablet by mouth daily at bedtime. 90 tablet 3 Ipratropium Breeding (ATROVENT) 21 mcg (0.03 %) nasal spray Use 2 Sprays in the nose every 12 hours. 3.5 mL 5 Clobetasol Propionate (TEMOVATE) 0.05 % external solution Apply 1 application to affected area two times a day as needed. For the posterior scalp. 50 mL 2 fluticasone (FLONASE) 50 mcg/actuation nasal spray Use 2 Sprays in each nostril once daily. Rinse mouth after use. 1 Each 0 Calcipotriene 0.005 % soln Apply to to scalp twice daily. 60 mL 3 omega 5-kcf-cvn-fish oil (FISH OIL) 100-160-1,000 mg cap Take by mouth once daily. ascorbic acid (SUSAN-C ORAL) Take by mouth once daily. Cholecalciferol, Vitamin D3, 50 mcg (2,000 unit) cap Take 1 capsule by mouth once daily. ketoconazole (NIZORAL) 2 % shampoo Apply to wet hair, lather for 5-10 minutes, and rinse thoroughly. Use 2-3 times weekly or as needed to control symptoms. 120 mL 5 CPAP AutoPAP with humidification set at a range of 5-16 cmH2O. Lifetime supplies. Please fit with [employer] under nose FFM. Please provide us download after 4 weeks of use. 1 Device 99 Current Facility-Administered Medications Medication Dose Route Frequency Provider Last Rate Last Admin Aminolevulinic Acid HCl 20 % soln 2 Each 2 each TOPICAL As Directed Gail Lebron PA-C 1 each at 04/20/23 1045 Weight Summary: Weight Change: Body mass index is 36.26 kg/m . Last Wt 11/12/24 : 117.9 kg (260 lb) 07/01/24 : 123.6 kg (272 lb 6.4 oz) 06/06/24 : 125.7 kg (277 lb 1.9 oz) 04/22/24 : 122.6 kg (270 lb 4.5 oz) 03/19/24 : 122 kg (268 lb 15.4 oz) Physical Exam: GENERAL: NAD, alert and oriented. SKIN: Unremarkable, no rash or skin lesions. HEAD: Normocephalic. EYES: PERRLA, EOMI, conjunctiva clear. EARS: External ears normal, canals clear, TM's normal. NOSE/SINUSES: Nares normal. Septum midline. OROPHARYNX: Lips, mucosa, and tongue normal, good dentition. No oral lesions noted. NECK: Supple, no lymphadenopathy, normal thyroid, no carotid bruits. Full range of motion, though patient reports tightening sensation. LUNGS: Clear to auscultation bilaterally, no wheezes/rhonchi/rales. HEART: Regular rate and rhythm, no murmurs. No ectopy. EXTREMITIES: Normal, no deformities, no skin discoloration, no edema. NEURO: Awake, alert and oriented x3, cranial nerves II-XII grossly intact, normal gait, no involuntary motions. SCREENINGS Health Maintenance Listing Depression Screening Anxiety Screening BP Controlled (<130/80) Shingrix Vaccine(1 of 2) Pneumococcal Vaccine: 50+(2 of 2 - PPSV23) Covid-19 Vaccine(2023- season) Colorectal Cancer Screening Advance Directive Discussion TEST RESULTS: Lab Studies: Date of lab studies: check labs in Jan - glucose - potassium - Creatinine, gfr - LFTs Lipid: WBC, H&H, Platelets: A1C: Vitamin D: Other: Labs: Tests: - Hearing test (no date): Partial hearing impairment (missed initial tones). Imaging: - Knee X-ray (no date): Arthritic changes, decreased meniscal space, and bone spur. A/P: 1. Post-surgical hypothyroidism (E89.0) - Scheduled thyroid labs in January, two weeks prior to endocrinology follow-up with Dr. Ladd in February. 2. 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 Obesity, Class II, BMI 35-39.9 (E66.812) - Continue current medications 4. Restless legs syndrome (G25.81) - Experiencing paresthesias in the knee and arm. - Ordered B12 level to rule out deficiency. 5. Mixed hyperlipidemia (E78.2) - Check labs in Jan. 6. Sinus bradycardia (R00.1) - Stable 7. Aneurysm of ascending aorta without rupture (I71.21) - Scheduled echocardiogram in January. - Follow-up with cardiology in January. 8. MAXIMILIAN (obstructive sleep apnea) (G47.33) - Continues CPAP therapy. - Reports nasal congestion and cough upon waking, likely related to CPAP use. 9. Essential hypertension (I10) - Stable, check CMP in Jan, 10. 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 - Ordered uric acid level. 11. Screening for prostate cancer (Z12.5) - Ordered PSA test to be done in January. 12. Screening for diabetes mellitus (Z13.1) - Ordered screening labs in January. Discussed treatment plan and patient voices understanding. Patient's questions answered appropriately. Medications and potential side effects were discussed and patient voices understanding. Return to the office as scheduled or as needed for worsening/no improvement. Follow Up Plans: 6 m documented in this encounter [facility] 10-04-2024 Note HNO ID: [id number] Author: ZOHAIB GROVE, DO Service: ? Author Type: Physician Type: Progress Notes Filed: 10/04/2024 13:55 Note Text: Subjective Edward is a 69-year-old male presenting with right knee pain and Achilles tendon pain. 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 The pain is exacerbated by activities such as yard work and walking, and he notes a significant decrease in strength in his knees, requiring him to use support to stand up from the ground. He denies swelling in the knee but mentions a history of gout and crystal formation in the kneecap, which required aspiration and a cortisone injection many years ago. Additionally, Edward reports a recent onset of sharp pain in the Achilles tendon of his right foot, which occurs when he twists his ankle. This pain has been present for the past few weeks and is described as excruciating at times. He has a history of foot surgeries to correct curled toes, with the most recent surgery involving the fusion of bones in his right foot. He believes that his altered gait due to these surgeries may be contributing to his knee and ankle pain. Edward expresses frustration with his decreased mobility and the impact it has on his ability to enjoy activities with his , such as walking. He is seeking relief from his pain, particularly as he plans to go on vacation soon and wants to be able to walk without discomfort. Musculoskeletal: (+) right knee pain, (+) knee weakness, (+) foot pain, (+) ankle pain, (-) knee swelling Objective There were no vitals taken for this visit. General: No acute distress. MSK/Ext: Right knee tenderness over medial compartment, left knee without abnormalities, right Achilles tendon intact, tenderness over right Achilles tendon. Labs Tests - Arthrocentesis (right knee): Crystals identified, consistent with gout Imaging - Bilateral knee X-ray: - Right knee: Joint space narrowing in the medial compartment, osteophytes, and sclerosis consistent with arthritis - Left knee: Normal 1. Primary osteoarthritis of right knee (M17.11) Radiographic evidence of joint space narrowing, osteophyte formation, and subchondral sclerosis in the medial compartment of the right knee, consistent with osteoarthritis. Symptoms include significant pain and decreased mobility, exacerbated by physical activity. No effusion noted. Left knee appears normal on imaging. - Administered VSCO supplement injection to the right knee to provide lubrication and cushioning, expected to last approximately 6 months. - Discussed alternative treatment options, including corticosteroid injections, but patient opted for VSCO supplementation due to longer duration of relief. - Patient advised to monitor symptoms and report any adverse reactions. Large Joint Arthro/Inj: R knee joint 10/04/2024 1:54 PM The procedure site was prepped in the usual sterile fashion. Site: R knee joint Medications: 30 mg hyaluronate sod, cross-linked 30 mg/3 mL Anesthetics: 2 mL lidocaine (PF) 10 mg/mL (1 %) Outcome: Tolerated well, no immediate complications Post-injection instructions were reviewed with the patient and the patient voiced understanding of these instructions. Informed Consent Consent Obtained: Verbal Vernon Protocol SIGN IN TIME OUT Attestation Recording using [employer] software for draft documentation of the visit was discussed with the patient/authorized patient relations representative; all questions welcomed and answered. Patient/authorized patient relations representative agreed to proceed [facility] 10-04-2024 History of Presen t illness Narrative Associated Order(s): Large Joint Arthro/Inj: R knee joint Post-Procedure Diagnose(s): Primary osteoarthritis of right knee Subjective Edward is a 69-year-old male presenting with right knee pain and Achilles tendon pain. 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 The pain is exacerbated by activities such as yard work and walking, and he notes a significant decrease in strength in his knees, requiring him to use support to stand up from the ground. He denies swelling in the knee but mentions a history of gout and crystal formation in the kneecap, which required aspiration and a cortisone injection many years ago. Additionally, Edward reports a recent onset of sharp pain in the Achilles tendon of his right foot, which occurs when he twists his ankle. This pain has been present for the past few weeks and is described as excruciating at times. He has a history of foot surgeries to correct curled toes, with the most recent surgery involving the fusion of bones in his right foot. He believes that his altered gait due to these surgeries may be contributing to his knee and ankle pain. Edward expresses frustration with his decreased mobility and the impact it has on his ability to enjoy activities with his , such as walking. He is seeking relief from his pain, particularly as he plans to go on vacation soon and wants to be able to walk without discomfort. Musculoskeletal: (+) right knee pain, (+) knee weakness, (+) foot pain, (+) ankle pain, (-) knee swelling Objective There were no vitals taken for this visit. General: No acute distress. MSK/Ext: Right knee tenderness over medial compartment, left knee without abnormalities, right Achilles tendon intact, tenderness over right Achilles tendon. Labs Tests - Arthrocentesis (right knee): Crystals identified, consistent with gout Imaging - Bilateral knee X-ray: - Right knee: Joint space narrowing in the medial compartment, osteophytes, and sclerosis consistent with arthritis - Left knee: Normal 1. Primary osteoarthritis of right knee (M17.11) Radiographic evidence of joint space narrowing, osteophyte formation, and subchondral sclerosis in the medial compartment of the right knee, consistent with osteoarthritis. Symptoms include significant pain and decreased mobility, exacerbated by physical activity. No effusion noted. Left knee appears normal on imaging. - Administered VSCO supplement injection to the right knee to provide lubrication and cushioning, expected to last approximately 6 months. - Discussed alternative treatment options, including corticosteroid injections, but patient opted for VSCO supplementation due to longer duration of relief. - Patient advised to monitor symptoms and report any adverse reactions. Large Joint Arthro/Inj: R knee joint 10/04/2024 1:54 PM The procedure site was prepped in the usual sterile fashion. Site: R knee joint Medications: 30 mg hyaluronate sod, cross-linked 30 mg/3 mL Anesthetics: 2 mL lidocaine (PF) 10 mg/mL (1 %) Outcome: Tolerated well, no immediate complications Post-injection instructions were reviewed with the patient and the patient voiced understanding of these instructions. Informed Consent Consent Obtained: Verbal Vernon Protocol SIGN IN TIME OUT Attestation Recording using [employer] software for draft documentation of the visit was discussed with the patient/authorized patient relations representative; all questions welcomed and answered. Patient/authorized patient relations representative agreed to proceed AMB ROOMING INTAKE FLOWSHEET DATA Pain Pain Level: 4 Pain Location: Knee-Right Description: Sore Duration Units: Years Frequency: Continuous Intervention/Comfort measure: Other: See comment Comments: Aleve helps somewhat Patient has bilateral knee pain. The right knee is worse than the left. Durolane injection into the right knee. LOT # [id number] EXP 12/17/2025 Alisson José MA documented in this encounter [facility] 10-04-2024 Note HNO ID: [id number] Author: ALISSON JOSÉ MA Service: ? Author Type: Desizing Machine Back Tender Type: Progress Notes Filed: 10/04/2024 13:57 Note Text: AMB ROOMING INTAKE FLOWSHEET DATA Pain Pain Level: 4 Pain Location: Knee-Right Description: Sore Duration Units: Years Frequency: Continuous Intervention/Comfort measure: Other: See comment Comments: Aleve helps somewhat Patient has bilateral knee pain. The right knee is worse than the left. Durolane injection into the right knee. LOT # [id number] EXP 12/17/2025 Alisson José [facility] [facility] 10-04[facility]24 History of Presen t illness Narrative Radiology Service Progress Note PATIENT NAME: Lynn Schreiber DATE OF SERVICE: October 04, 2024 TIME: 1:04 PM PATIENT IDENTITY VERIFICATION COMPLETED USING TWO (2) IDENTIFIERS: Name and Date of confirmed by patient verbally. FALL SCREENING: Has the patient had 2 falls in the last year or 1 fall with injury or currently using an Ambulatory Assistive Device (Walker, Cane, Wheelchair, Crutches, etc.)? No PATIENT GENDER DATA: Assigned male at PATIENT RELEVANT IMPLANT DATA REVIEWED: Not Applicable PATIENT PRESENTS WITH AN IMPLANTABLE OR ATTACHED AERIAL SPRAYER: No RADIOLOGY DEPARTMENT: General X-ray: Exam(s) Completed: Lower Extremity X-Ray(s): Knee, AP / Lat / Tunne / Merchant Bilateral PERIPHERAL IV DATA: Not applicable SIGNED BY: Sierra Lerma October 04, 2024 1:04 PM documented in this encounter [facility] 10-04-2024 Note HNO ID: [id number] Author: KIRSTIN GARCIA Tech Service: ? Author Type: Technologist Type: Progress Notes Filed: 10/04/2024 13:22 Note Text: Radiology Service Progress Note PATIENT NAME: Lynn Schreiber DATE OF SERVICE: October 04, 2024 TIME: 1:04 PM PATIENT IDENTITY VERIFICATION COMPLETED USING TWO (2) IDENTIFIERS: Name and Date of confirmed by patient verbally. FALL SCREENING: Has the patient had 2 falls in the last year or 1 fall with injury or currently using an Ambulatory Assistive Device (Walker, Cane, Wheelchair, Crutches, etc.)? No PATIENT GENDER DATA: Assigned male at PATIENT RELEVANT IMPLANT DATA REVIEWED: Not Applicable PATIENT PRESENTS WITH AN IMPLANTABLE OR ATTACHED AERIAL SPRAYER: No RADIOLOGY DEPARTMENT: General X-ray: Exam(s) Completed: Lower Extremity X-Ray(s): Knee, AP / Lat / Tunne / Merchant Bilateral PERIPHERAL IV DATA: Not applicable SIGNED BY: Sierra Lerma October 04, 2024 1:04 PM [facility] 09-12-2024 Note HNO ID: [id number] Author: ALISSON HALLMAN MA Service: ? Author Type: Desizing Machine Back Tender Type: Progress Notes Filed: 09/12/2024 08:26 Note Text: POPULATION HEALTH NAVIGATION OUTREACH Action/FYI SPoke to and appointments for follow up and AWV scheduled. Declines colonoscopy at this time. Topic Due (Y or N) Comments Annual Wellness Exam Yes PCP Follow up Yes Colorectal Cancer Screening Yes A1C No HTN/Controlling BP Yes HCC Yes Updated appointment notes No Reason for Outreach Care Gap/HCC or Scheduling Wellness Visits Care Gaps due: Medicare Annual Wellness Visit Follow-up Appointment Controlling Blood Pressure Colorectal Cancer Screening Patient Contacted: Spoke to patient/parent/or legal guardian Patient identified by name and : Yes Care Gap/HCC/Scheduling Wellness actions taken: Patient scheduled/pended orders: Medicare Annual Wellness Visit Follow-up Appointment Controlling Blood Pressure 11/12/2024 in [facility] with ZORAIDA TAVAREZ A - Annual Wellness Visit 01/13/2025 in [facility] with [facility] - Mild left ventricular systolic dysfunction [I51.89]; 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) [I71.21]; Essential hypertension [I10]; Mixed hyperlipidemia [E78.2]; Nonrheumatic mitral valve regurgitation [I34.0]; MAXIMILIAN (obstructive sleep apnea) [G47.33] 01/27/2025 in [facility] with JESSICA OLVERA - 7 month follow up 02/17/2025 in [facility] with ANTHONY LOREDO JR - 7 month follow up 02/26/2025 in [facility] with ELENA SEPULVEDA V - hypothyroid follow up 04/14/2025 [facility] ZORAIDA TAVAREZ A - Follow Up HCC related Navigation Signature: Alisson Hallman MA September 12, 2024 8:25 AM [facility] 09-12-2024 History of Presen t illness Narrative POPULATION HEALTH NAVIGATION OUTREACH Action/FYI SPoke to and appointments for follow up and AWV scheduled. Declines colonoscopy at this time. Topic Due (Y or N) Comments Annual Wellness Exam Yes PCP Follow up Yes Colorectal Cancer Screening Yes A1C No HTN/Controlling BP Yes HCC Yes Updated appointment notes No Reason for Outreach Care Gap/HCC or Scheduling Wellness Visits Care Gaps due: Medicare Annual Wellness Visit Follow-up Appointment Controlling Blood Pressure Colorectal Cancer Screening Patient Contacted: Spoke to patient/parent/or legal guardian Patient identified by name and : Yes Care Gap/HCC/Scheduling Wellness actions taken: Patient scheduled/pended orders: Medicare Annual Wellness Visit Follow-up Appointment Controlling Blood Pressure 11/12/2024 [facility] ZORAIDA TAVAREZ - Annual Wellness Visit 01/13/2025 in [facility] with ECHOCARDIOGRAM [facility] - Mild left ventricular systolic dysfunction [I51.89]; 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) [I71.21]; Essential hypertension [I10]; Mixed hyperlipidemia [E78.2]; Nonrheumatic mitral valve regurgitation [I34.0]; MAXIMILIAN (obstructive sleep apnea) [G47.33] 01/27/2025 in [facility] with JESSICA OLVERA - 7 month follow up 02/17/2025 in [facility] with ANTHONY LOREDO JR - 7 month follow up 02/26/2025 in [facility] with ELENA SEPULVEDA V - hypothyroid follow up 04/14/2025 [facility] ZORAIDA TAVAREZ - Follow Up HCC related Navigation Signature: Alisson Hallman MA September 12, 2024 8:25 AM documented in this encounter [facility] 09-12-2024 Note Patient Outreach (ASHLIE DAVISAV) LYNN SCHREIBER ([id number]) 1955 M NFR Date Time Provider Department 09/12/24 ALISSON HALLMAN During your visit today, we recorded the following information about you: Alisson Hallman MA 09/12/2024 8:26 AM Signed POPULATION HEALTH NAVIGATION OUTREACH Action/FYI SPoke to and appointments for follow up and AWV scheduled. Declines colonoscopy at this time. Topic Due (Y or N) Comments Annual Wellness Exam Yes PCP Follow up Yes Colorectal Cancer Screening Yes A1C No HTN/Controlling BP Yes HCC Yes Updated appointment notes No Reason for Outreach Care Gap/HCC or Scheduling Wellness Visits Care Gaps due: Medicare Annual Wellness Visit Follow-up Appointment Controlling Blood Pressure Colorectal Cancer Screening Patient Contacted: Spoke to patient/parent/or legal guardian Patient identified by name and : Yes Care Gap/HCC/Scheduling Wellness actions taken: Patient scheduled/pended orders: Medicare Annual Wellness Visit Follow-up Appointment Controlling Blood Pressure 11/12/2024 [facility] with ZORAIDA TAVAREZ - Annual Wellness Visit 01/13/2025 in [facility] with ECHOCARDIOGRAM [facility] - Mild left ventricular systolic dysfunction [I51.89]; 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) [I71.21]; Essential hypertension [I10]; Mixed hyperlipidemia [E78.2]; Nonrheumatic mitral valve regurgitation [I34.0]; MAXIMILIAN (obstructive sleep apnea) [G47.33] 01/27/2025 in [facility] with JESISCA OLVERA - 7 month follow up 02/17/2025 [facility] ANTHONY LOREDO JR - 7 month follow up 02/26/2025 in [facility] with ELENA SEPULVEDA V - hypothyroid follow up 04/14/2025 [facility] with ZORAIDA TAVAREZ - Follow Up HCC related Navigation Signature: Alisson Hallman MA September 12, 2024 8:25 AM Allergies As of Date: 09/12/2024 (No Known Allergies) Date Reviewed: 07/01/2024 Reviewed by: Anthony Loredo Jr., MD - Fully Assessed Reason for Visit: Population Health Navigation Outreach [3910] Cmt: Diane/Workbench/ACO Prescriptions as of 09/12/2024 - levothyroxine (SYNTHROID) 137 mcg tablet Take 1 tablet by mouth once daily. Except none on sundays - allopurinol (ZYLOPRIM) 300 mg tablet Take 1 tablet by mouth once daily. - ketoconazole (NIZORAL) 2 % shampoo Apply to wet hair, lather for 5-10 minutes, and rinse thoroughly. Use 2-3 times weekly or as needed to control symptoms. - gabapentin (NEURONTIN) 300 mg capsule TAKE 1 CAPSULE BY MOUTH in evening THEN 2-3 CAPSULES AT bedtime. - lisinopril (ZESTRIL) 5 mg tablet Take 1 tablet by mouth once daily. - rosuvastatin (CRESTOR) 20 mg tablet Take 1 tablet by mouth daily at bedtime. - Ipratropium Breeding (ATROVENT) 21 mcg (0.03 %) nasal spray Use 2 Sprays in the nose every 12 hours. - Clobetasol Propionate (TEMOVATE) 0.05 % external solution Apply 1 application to affected area two times a day as needed. For the posterior scalp. - fluticasone (FLONASE) 50 mcg/actuation nasal spray Use 2 Sprays in each nostril once daily. Rinse mouth after use. - Calcipotriene 0.005 % soln Apply to to scalp twice daily. - omega 9-ryc-nmq-fish oil (FISH OIL) 100-160-1,000 mg cap Take by mouth once daily. - ascorbic acid (SUSAN-C ORAL) Take by mouth once daily. - CPAP AutoPAP with humidification set at a range of 5-16 cmH2O. Lifetime supplies. Please fit with dreamwear under nose FFM. Please provide us download after 4 weeks of use. - Cholecalciferol, Vitamin D3, 50 mcg (2,000 unit) cap Take 1 capsule by mouth once daily. 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 Neoplasm of Uncertain Behavior(NUB) of skin: R/*08/23/2012 09/21/2012 R/O BCC (basal cell carcinoma), face: L side no*08/23/2012 09/21/2012 Skin cancer of nose [C44.301] 08/23/2012 Actinic Keratoses (Premalignant AK's) [L57.0] 08/23/2012 05/02/2016 Scar condition and fibrosis of skin [L90.5] 08/23/2012 05/02/2016 Solar lentigo [L81.4] 08/23/2012 05/02/2016 Other seborrheic keratosis [L82.1] 08/23/2012 05/02/2016 Actinic skin damage [L57.8] 08/23/2012 05/02/2016 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 [facility] 08-19-2024 Telephone encounter Note The following approved medication requests have been transmitted electronically. Requested Prescriptions Pending Prescriptions Disp Refills levothyroxine (SYNTHROID) 137 mcg tablet 90 tablet 0 Sig: Take 1 tablet by mouth once daily. Except none on sundays Zoraida Tavarez APRN.CNP [facility] 08-19-2024 Miscellaneous Notes The following approved medication requests have been transmitted electronically. Requested Prescriptions Pending Prescriptions Disp Refills levothyroxine (SYNTHROID) 137 mcg tablet 90 tablet 0 Sig: Take 1 tablet by mouth once daily. Except none on sundays Zoraida Tavarez APRN.CNP Prescription Refill Information The patient has been identified by name and date of : Yes Caregiver verified no other encounters exist for this prescription request: Yes Caregiver confirmed with patient/requestor that no other refills are due, in the near future, with this provider at this time: Yes The last office visit in the department: 03/19/2024 Does the patient have a future office visit with this provider/department: No Requested Prescriptions Pending Prescriptions Disp Refills levothyroxine (SYNTHROID) 137 mcg tablet 90 tablet 4 Sig: Take 1 tablet by mouth once daily. Except none on sundays Zoraida Jackson LPN August 19, 2024 10:10 AM documented in this encounter [facility] 08-19-2024 Telephone encounter Note Prescription Refill Information The patient has been identified by name and date of : Yes Caregiver verified no other encounters exist for this prescription request: Yes Caregiver confirmed with patient/requestor that no other refills are due, in the near future, with this provider at this time: Yes The last office visit in the department: 03/19/2024 Does the patient have a future office visit with this provider/department: No Requested Prescriptions Pending Prescriptions Disp Refills levothyroxine (SYNTHROID) 137 mcg tablet 90 tablet 4 Sig: Take 1 tablet by mouth once daily. Except none on sundays Zoraida Jackson LPN August 19, 2024 10:10 AM [facility] 08-02-2024 Telephone encounter Note The following approved medication requests have been transmitted electronically. Requested Prescriptions Pending Prescriptions Disp Refills allopurinol (ZYLOPRIM) 300 mg tablet 90 tablet 3 Sig: Take 1 tablet by mouth once daily. Zoraida Tavarez APRN.CNP [facility] 08-02-2024 Miscellaneous Notes The following approved medication requests have been transmitted electronically. Requested Prescriptions Pending Prescriptions Disp Refills allopurinol (ZYLOPRIM) 300 mg tablet 90 tablet 3 Sig: Take 1 tablet by mouth once daily. Zoraida Tavarez APRN.CNP Prescription Refill Information The patient has been identified by name and date of : Yes Caregiver verified no other encounters exist for this prescription request: Yes Caregiver confirmed with patient/requestor that no other refills are due, in the near future, with this provider at this time: Yes The last office visit in the department: 03/19/24 Does the patient have a future office visit with this provider/department: Yes Requested Prescriptions Pending Prescriptions Disp Refills allopurinol (ZYLOPRIM) 300 mg tablet 90 tablet 3 Sig: Take 1 tablet by mouth once daily. Tosin Underwood LPN August 02, 2024 12:03 PM documented in this encounter [facility] 08-02-2024 Telephone encounter Note Prescription Refill Information The patient has been identified by name and date of : Yes Caregiver verified no other encounters exist for this prescription request: Yes Caregiver confirmed with patient/requestor that no other refills are due, in the near future, with this provider at this time: Yes The last office visit in the department: 03/19/24 Does the patient have a future office visit with this provider/department: Yes Requested Prescriptions Pending Prescriptions Disp Refills allopurinol (ZYLOPRIM) 300 mg tablet 90 tablet 3 Sig: Take 1 tablet by mouth once daily. Tosin Underwood LPN August 02, 2024 12:03 PM [facility] 07-22-2024 Telephone encounter Note ENIO 02/06/2024 [facility] 07-22-2024 Miscellaneous Notes ENIO 02/06/2024 documented in this encounter [facility] 07-01-2024 History of Presen t illness Narrative Radiology Service Progress Note PATIENT NAME: Lynn Schreiber DATE OF SERVICE: July 01, 2024 TIME: 8:53 PM PATIENT IDENTITY VERIFICATION COMPLETED USING TWO (2) IDENTIFIERS: Name and Date of confirmed by patient verbally. FALL SCREENING: Has the patient had 2 falls in the last year or 1 fall with injury or currently using an Ambulatory Assistive Device (Walker, Cane, Wheelchair, Crutches, etc.)? No PATIENT GENDER DATA: Assigned male at PATIENT RELEVANT IMPLANT DATA REVIEWED: Not Applicable PATIENT PRESENTS WITH AN IMPLANTABLE OR ATTACHED AERIAL SPRAYER: No RADIOLOGY DEPARTMENT: General X-ray: Exam(s) Completed: Lower Extremity X-Ray(s): Foot, Left and Wt. Bearing PERIPHERAL IV DATA: Not applicable SIGNED BY: CIERRA Goff) July 01, 2024 8:53 PM documented in this encounter [facility] 07-01-2024 Note HNO ID: [id number] Author: AALIYAH GIBBONS RT(R) Service: ? Author Type: Technologist Type: Progress Notes Filed: 07/01/2024 20:53 Note Text: Radiology Service Progress Note PATIENT NAME: Lynn Schreiber DATE OF SERVICE: July 01, 2024 TIME: 8:53 PM PATIENT IDENTITY VERIFICATION COMPLETED USING TWO (2) IDENTIFIERS: Name and Date of confirmed by patient verbally. FALL SCREENING: Has the patient had 2 falls in the last year or 1 fall with injury or currently using an Ambulatory Assistive Device (Walker, Cane, Wheelchair, Crutches, etc.)? No PATIENT GENDER DATA: Assigned male at PATIENT RELEVANT IMPLANT DATA REVIEWED: Not Applicable PATIENT PRESENTS WITH AN IMPLANTABLE OR ATTACHED AERIAL SPRAYER: No RADIOLOGY DEPARTMENT: General X-ray: Exam(s) Completed: Lower Extremity X-Ray(s): Foot, Left and Wt. Bearing PERIPHERAL IV DATA: Not applicable SIGNED BY: Aaliyah Gibbons, RT(R) July 01, 2024 8:53 PM [facility] 07-01-2024 History of Presen t illness Narrative Per Dr. Pabon, Lynn was provided with powerstep gel inserts, size 12, and instructed/educated in its application, wear, and care. All questions were answered, and patient was able to demonstrate competence with the necessary skills to utilize the above equipment. Rufina Lyn LPN Images from the original note were not included. Initial Podiatric Office Visit: Chief Complaint: This 68 year old male who presents with chief complaint:pins and needles of b/l feet HPI Patient presents to clinic for evaluation of b/l feet. Complains of pins and needles to both feet. He states as he walks, the tips of his toes will experience burning. He states he has to take his shoes off because of the pain. He states his foot feels asleep He also has noticed his feet turning inward leading to rubbing on his toes. PAIN EVALUATION 07/01/2024 1027 Pain Level: 7 Pain Location: Other: See Comment bilateral feet Description: Numbness;Tingling Duration Amount of Time: 6 Duration Units: Months Frequency: Intermittent Intervention/Comfort measure: Reposition;Relaxation Hemoglobin A1C (%) Date Value 07/09/2018 5.5 PCP: Zoraida Tavarez APRN.CROSS ENTERPRISE INTEGRATOR PAST MEDICAL HISTORY Diagnosis Date Ascending aorta dilatation (HCC) Basal cell cancer Decreased peripheral vision of left eye Elevated prostate specific antigen (PSA) Essential hypertension 07/06/2021 GERD (gastroesophageal reflux disease) Gout Jeffry's thyroiditis with thyroid nodules Kidney stones 06/27/2023 Mild left ventricular systolic dysfunction Mild pulmonary hypertension (HCC) Mixed hyperlipidemia 11/16/2015 Obesity MAXIMILIAN (obstructive sleep apnea) 10/20/2020 Osteoarthritis Sinus bradycardia Current Outpatient Medications Medication Sig gabapentin (NEURONTIN) 300 mg capsule TAKE 1 CAPSULE BY MOUTH in evening THEN 2-3 CAPSULES AT bedtime. lisinopril (ZESTRIL) 5 mg tablet Take 1 tablet by mouth once daily. rosuvastatin (CRESTOR) 20 mg tablet Take 1 tablet by mouth daily at bedtime. Ipratropium Breeding (ATROVENT) 21 mcg (0.03 %) nasal spray Use 2 Sprays in the nose every 12 hours. Clobetasol Propionate (TEMOVATE) 0.05 % external solution Apply 1 application to affected area two times a day as needed. For the posterior scalp. fluticasone (FLONASE) 50 mcg/actuation nasal spray Use 2 Sprays in each nostril once daily. Rinse mouth after use. ketoconazole (NIZORAL) 2 % shampoo Apply to wet hair, lather for 5-10 minutes, and rinse thoroughly. Use 2-3 times weekly or as needed to control symptoms. allopurinol (ZYLOPRIM) 300 mg tablet Take 1 tablet by mouth once daily. Calcipotriene 0.005 % soln Apply to to scalp twice daily. levothyroxine (SYNTHROID) 137 mcg tablet Take 1 tablet by mouth once daily. Except none on sundays omega 9-uic-jea-fish oil (FISH OIL) 100-160-1,000 mg cap Take by mouth once daily. ascorbic acid (SUSAN-C ORAL) Take by mouth once daily. CPAP AutoPAP with humidification set at a range of 5-16 cmH2O. Lifetime supplies. Please fit with dreamwear under nose FFM. Please provide us download after 4 weeks of use. Cholecalciferol, Vitamin D3, 50 mcg (2,000 unit) cap Take 1 capsule by mouth once daily. Current Facility-Administered Medications Medication Dose Route Frequency Aminolevulinic Acid HCl 20 % soln 2 Each 2 Each TOPICAL As Directed ALLERGIES No Known Allergies PAST SURGICAL HISTORY [...] Never Smokeless tobacco: Never Vaping Use Vaping status: Never Used Substance Use Topics Alcohol use: Not Currently Drug use: Not Currently Types: Marijuana REVIEW OF SYSTEMS GENERAL: Negative for Malaise, significant weight loss, fever RESPIRATORY: Negative for cough, wheezing and shortness of breath CARDIOVASCULAR: Negative for chest pain, leg swelling and palpitations GI: Negative for abdominal discomfort, blood in stools or black stools and change in bowel habits : Negative for dysuria, frequency and incontinence MUSCULOSKELETAL: Negative for joint pain or swelling, back pain, and muscle pain. SKIN: Negative for lesions, rash, and itching. HEMATOLOGY/LYMPHOLOGY Negative for prolonged bleeding, bruising easily, and swollen nodes. ENDOCRINE: Negative for cold or heat intolerance, polyuria, polydipsia and goiter. NEURO: negative Physical Exam: Constitutional: Pt is a well developed 68 year old male who is alert, oriented and cooperative Eyes: Following during examination. No redness or drainage. Respiratory: RR normal and nonlabored. Even breathing. No evidence of distress or shortness of breath. Psychology: Patient is engaged during conversation. Normal affect and mood. Does not appear depressed or anxious during encounter. Vascular: Dorsalis pedis and posterior tibial pulses palpable as b/l Capillary Fill time < 5 seconds to digits 1-5 b/l Skin temperature warm to warm proximal to distal b/l Hair growth present to digits Neurological: intact light touch/epicritic sensation Vibratory sensation absent b/l decreased protective sensation + significant neurological deficits Dermatological: Nails 1-5 b/l appear normal. Webspaces clean and dry 1-4 b/l. Skin appears well hydrated and supple. good color, texture, turgor. No open lesions present. No callosities present. Musculoskeletal/Orthopaedic: Patient has no pain to palpation of b/l feet Foot type is slightly pronated structurally AJ ROM is full with knee extended and flexed 1st MPJ is decreased when loaded and no pain or crepitus are noted with ROM. Lateral deviation of left 3rd toe MTJ, STJ are full and free of pain and crepitus. +5/5 muscle strength dorsiflexion, plantarflexion, inversion, eversion b/l Radiographs: ordered ASSESSMENT: (M20.42) Hammer toe of left foot (primary encounter diagnosis) (G62.9) Neuropathy PLAN: Discussed hammertoe. Continue with wider shoes Check xray to access severeity Continue with inserts Continue with gabapentin for neuropathy Could consider topical pain creams Can follow-up in 1 month to see how patient is doing Harlan Pabon DPM Podiatry [address] [facility] [address] Dept: [phone] Dept AMB ROOMING INTAKE FLOWSHEET DATA Pain Pain Level: 7 Pain Location: Other: See Comment (bilateral feet) Description: Numbness, Tingling Duration Amount of Time: 6 Duration Units: Months Frequency: Intermittent Intervention/Comfort measure: Reposition, Relaxation Patient presents with: Left Foot - Established Patient, Pain, Numbness, Numbness/Tingling Right Foot - Established Patient, Pain, Numbness, Numbness/Tingling Rufina Lyn LPN documented in this encounter [facility] 07-01-2024 Note HNO ID: [id number] Author: RUFINA LYN LPN Service: ? Author Type: LICENSED NURSE Type: Progress Notes Filed: 07/01/2024 18:56 Note Text: Per Dr. Pabon, Lynn was provided with powerstep gel inserts, size 12, and instructed/educated in its application, wear, and care. All questions were answered, and patient was able to demonstrate competence with the necessary skills to utilize the above equipment. Rufina Lyn LPN [facility] 07-01-2024 Instructions Harlan Pabon - 07/01/2024 10:59 AM EST Powerstep Original Full length. Can purchase at [facility] Runner and boots,shoes and more here in [place], [employer] in [place] or [place]. Also can find in [employer] in [facility]. Powersteps can also be purchased online, starting around $45.00 If you have a metatarsal or dancer pad for your feet apply the pad directly to the insole so you can interchange between your shoes. Find a shoe with a removable insole and take this out and replace with your powerstep insole. Always bring powersteps with you when shopping for shoes so that you can make sure that everything fits well together documented in this encounter [facility] 07-01-2024 Note HNO ID: [id number] Author: HARLAN PABON, ? Service: ? Author Type: Physician Type: Progress Notes Filed: 07/01/2024 18:56 Note Text: Initial Podiatric Office Visit: Chief Complaint: This 68 year old male who presents with chief complaint:pins and needles of b/l feet HPI Patient presents to clinic for evaluation of b/l feet. Complains of pins and needles to both feet. He states as he walks, the tips of his toes will experience burning. He states he has to take his shoes off because of the pain. He states his foot feels asleep He also has noticed his feet turning inward leading to rubbing on his toes. PAIN EVALUATION 07/01/2024 1027 Pain Level: 7 Pain Location: Other: See Comment bilateral feet Description: Numbness;Tingling Duration Amount of Time: 6 Duration Units: Months Frequency: Intermittent Intervention/Comfort measure: Reposition;Relaxation Hemoglobin A1C (%) Date Value 07/09/2018 5.5 PCP: Zoraida Tavarez APRN.[employer] INTEGRATOR PAST MEDICAL HISTORY Diagnosis Date Ascending aorta dilatation (HCC) Basal cell cancer Decreased peripheral vision of left eye Elevated prostate specific antigen (PSA) Essential hypertension 07/06/2021 GERD (gastroesophageal reflux disease) Gout Jeffry's thyroiditis with thyroid nodules Kidney stones 06/27/2023 Mild left ventricular systolic dysfunction Mild pulmonary hypertension (HCC) Mixed hyperlipidemia 11/16/2015 Obesity MAXIMILIAN (obstructive sleep apnea) 10/20/2020 Osteoarthritis Sinus bradycardia Current Outpatient Medications Medication Sig gabapentin (NEURONTIN) 300 mg capsule TAKE 1 CAPSULE BY MOUTH in evening THEN 2-3 CAPSULES AT bedtime. lisinopril (ZESTRIL) 5 mg tablet Take 1 tablet by mouth once daily. rosuvastatin (CRESTOR) 20 mg tablet Take 1 tablet by mouth daily at bedtime. Ipratropium Breeding (ATROVENT) 21 mcg (0.03 %) nasal spray Use 2 Sprays in the nose every 12 hours. Clobetasol Propionate (TEMOVATE) 0.05 % external solution Apply 1 application to affected area two times a day as needed. For the posterior scalp. fluticasone (FLONASE) 50 mcg/actuation nasal spray Use 2 Sprays in each nostril once daily. Rinse mouth after use. ketoconazole (NIZORAL) 2 % shampoo Apply to wet hair, lather for 5-10 minutes, and rinse thoroughly. Use 2-3 times weekly or as needed to control symptoms. allopurinol (ZYLOPRIM) 300 mg tablet Take 1 tablet by mouth once daily. Calcipotriene 0.005 % soln Apply to to scalp twice daily. levothyroxine (SYNTHROID) 137 mcg tablet Take 1 tablet by mouth once daily. Except none on sundays omega 8-cal-fgb-fish oil (FISH OIL) 100-160-1,000 mg cap Take by mouth once daily. ascorbic acid (SUSAN-C ORAL) Take by mouth once daily. CPAP AutoPAP with humidification set at a range of 5-16 cmH2O. Lifetime supplies. Please fit with dreamwear under nose FFM. Please provide us download after 4 weeks of use. Cholecalciferol, Vitamin D3, 50 mcg (2,000 unit) cap Take 1 capsule by mouth once daily. Current Facility-Administered Medications Medication Dose Route Frequency Aminolevulinic Acid HCl 20 % soln 2 Each 2 Each TOPICAL As Directed ALLERGIES No Known Allergies PAST SURGICAL HISTORY [...] Never Smokeless tobacco: Never Vaping Use Vaping status: Never Used Substance Use Topics Alcohol use: Not Currently Drug use: Not Currently Types: Marijuana REVIEW OF SYSTEMS GENERAL: Negative for Malaise, significant weight loss, fever RESPIRATORY: Negative for cough, wheezing and shortness of breath CARDIOVASCULAR: Negative for chest pain, leg swelling and palpitations GI: Negative for abdominal discomfort, blood in stools or black stools and change in bowel habits : Negative for dysuria, frequency and incontinence MUSCULOSKELETAL: Negative for joint pain or swelling, back pain, and muscle pain. SKIN: Negative for lesions, rash, and itching. HEMATOLOGY/LYMPHOLOGY Negative for prolonged bleeding, bruising easily, and swollen nodes. ENDOCRINE: Negative for cold or heat intolerance, polyuria, polydipsia and goiter. NEURO: negative Physical Exam: Constitutional: Pt is a well developed 68 year old male who is alert, oriented and cooperative Eyes: Following during examination. No redness or drainage. Respiratory: RR normal and nonlabored. Even breathing. No evidence of distress o (more content not included)... [facility] 07-01-2024 Note HNO ID: [id number] Author: RUFINA LYN LPN Service: ? Author Type: LICENSED NURSE Type: Progress Notes Filed: 07/01/2024 18:56 Note Text: AMB ROOMING INTAKE FLOWSHEET DATA Pain Pain Level: 7 Pain Location: Other: See Comment (bilateral feet) Description: Numbness, Tingling Duration Amount of Time: 6 Duration Units: Months Frequency: Intermittent Intervention/Comfort measure: Reposition, Relaxation Patient presents with: Left Foot - Established Patient, Pain, Numbness, Numbness/Tingling Right Foot - Established Patient, Pain, Numbness, Numbness/Tingling Rufina Lyn LPN [facility] 07-01-2024 Instructions Anthony Loredo Jr., MD - 07/01/2024 9:30 AM EST Your most recent body mass index (BMI) that we have on record is 37.99 kg/m2. Obstructive sleep apnea (MAXIMILIAN) worsens with an increase in weight; reduction in weight may improve or resolve your MAXIMILIAN. If you are not already seeking treatment, there are resources available at the [facility] such as a nutrition consultation or referral to weight management programs at our [facility] [place]. Please let us know if we can assist with a referral. documented in this encounter [facility] 07-01-2024 Note HNO ID: [id number] Author: ANTHONY LOREDO JR, MD Service: ? Author Type: Physician Type: Progress Notes Filed: 07/01/2024 11:10 Note Text: ESTABLISHED PATIENT VISIT CHIEF COMPLAINT: Follow Up HISTORY OF PRESENT ILLNESS: Lynn Schreiber is a 68 year old male, BMI 37.99 kg/m2 with a PMH significant for and per last visit with Natalie Cardona CNP on 12/25/23: Maximilian on cpap (primary encounter diagnosis) Restless legs syndrome Lynn Schreiber is a 68 year old male with PMH of MAXIMILIAN on APAP, RLS, HLD, HTN, skin cancer nose, thyroid cancer, hypothyroidism, obesity. --Patient is compliant with PAP therapy and reports subjective benefits from treatment --We reviewed PAP compliance report; AHI is normalized PLAN: - Continue Auto CPAP - Remember to clean your mask and equipment regularly, as directed. - You should be eligible for new supplies approximately every 3-6 months, depending on your insurance coverage. Contact your Durable Medical Equipment (DME) company for new supplies as needed. Continue gabapentin for treatment of RLS. He has decreased gabapentin to 600 mg at 8 PM, he dislikes taking any meds. He is satisfied with this regimen. PAP compliance up to 06/27/24 shows 90/90 days used for avg of 6 hours and 18 minutes. Set at 5-16 cmH2O with EPR 3. 95% pressure is 9.5 cmH2O. 95% leak is 12.6 LPM. AHI is 1.0. No sleep complaints. Waking at night only to urinate - 1-2 x. Chronic. No PSA since 2022 but history of being elevated. Does report a lot of stop and start of stream. Pt is also noticing mild vertigo over the past month if turns over and lies on the left side. Not like vertigo in the past. Only positional. thinks he has hearing problems. Also states he is cracking his neck but no neck pain. RLS stable - was on gabapentin 900mg but decreased to 600mg as felt he was taking too many pills. Sits there watching tv in bed and legs are moving. Is taking gabapentin at least an hour prior to getting in bed. REVIEW OF SYSTEMS GENERAL:No weight loss, malaise or fevers. HEENT:Negative for frequent or significant headaches, No changes in hearing or vision, no nose bleeds or other nasal problems NECK:Negative for lumps, goiter, pain and significant neck swelling RESPIRATORY: Negative for cough, wheezing or shortness of breath. CARDIOVASCULAR: Negative for chest pain, leg swelling or palpitations. GASTROINTESTINAL: Negative for abdominal discomfort, blood in stools or black stools or change in bowel habits GENITOURINARY: See HPI. MUSCULOSKELETAL: Negative for joint pain or swelling, back pain or muscle pain. NEUROLOGIC:Pt with neuropathy - following with podiatry. SKIN:Negative for lesions, rash, and itching. LAB/IMAGING: [...] Value 06/19/2023 10.0 Glucose (mg/dL) Date Value 02/08/2024 103 (H) BUN (mg/dL) Date Value 02/08/2024 31 (H) Creatinine (mg/dL) Date Value 02/08/2024 1.43 (H) Sodium (mmol/L) Date Value 02/08/2024 142 Potassium (mmol/L) Date Value 02/08/2024 4.6 Chloride (mmol/L) Date Value 02/08/2024 106 CO2 (mmol/L) Date Value 02/08/2024 25 Protein, Total (g/dL) Date Value 02/08/2024 6.4 Albumin (g/dL) Date Value 02/08/2024 4.1 Calcium, Total (mg/dL) Date Value 02/08/2024 9.1 Alkaline Phosphatase (U/L) Date Value 02/08/2024 72 Bilirubin, Total (mg/dL) Date Value 02/08/2024 0.4 AST (U/L) Date Value 02/08/2024 20 ALT (U/L) Date Value 02/08/2024 24 Hep C Antibody IA (no units) Date Value 11/16/2015 Negative MEDICATIONS: lisinopril (ZESTRIL) 5 mg tabletTake 1 tablet by mouth once daily.Disp: 90 tabletRfl: 3 rosuvastatin (CRESTOR) 20 mg tabletTake 1 tablet by mouth daily at bedtime.Disp: 90 tabletRfl: 3 Ipratropium Breeding (ATROVENT) 21 mcg (0.03 %) nasal sprayUse 2 Sprays in the nose every 12 hours.Disp: 3.5 mLRfl: 5 Clobetasol Propionate (TEMOVATE) 0.05 % external solutionApply 1 application to affected area two times a day as needed. For the posterior scalp.Disp: 50 mLRfl: 2 fluticasone (FLONASE) 50 mcg/actuation nasal sprayUse 2 Sprays in each nostril once daily. Rinse mouth after use.Disp: 1 EachRfl: 0 ketoconazole (NIZORAL) 2 % shampooApply to wet hair, lather for 5-10 minutes, and rinse thoroughly. Use 2-3 times weekly or as needed to control symptoms.Disp: 120 mLRfl: 5 allopurinol (ZYLOPRIM) 300 mg tabletTake 1 tablet by mouth once daily.Disp: 90 tabletRfl: 3 Calcipotriene 0.005 % solnApply to to scalp twice (more content not included)... [facility] 07-01-2024 History of Presen t illness Narrative ESTABLISHED PATIENT VISIT CHIEF COMPLAINT: Follow Up HISTORY OF PRESENT ILLNESS: Lynn Schreiber is a 68 year old male, BMI 37.99 kg/m2 with a PMH significant for and per last visit with Natalie Cardona CNP on 12/25/23: Maximilian on cpap (primary encounter diagnosis) Restless legs syndrome Lynn Schreiber is a 68 year old male with PMH of MAXIMILIAN on APAP, RLS, HLD, HTN, skin cancer nose, thyroid cancer, hypothyroidism, obesity. --Patient is compliant with PAP therapy and reports subjective benefits from treatment --We reviewed PAP compliance report; AHI is normalized PLAN: - Continue Auto CPAP - Remember to clean your mask and equipment regularly, as directed. - You should be eligible for new supplies approximately every 3-6 months, depending on your insurance coverage. Contact your Durable Medical Equipment (DME) company for new supplies as needed. Continue gabapentin for treatment of RLS. He has decreased gabapentin to 600 mg at 8 PM, he dislikes taking any meds. He is satisfied with this regimen. PAP compliance up to 06/27/24 shows 90/90 days used for avg of 6 hours and 18 minutes. Set at 5-16 cmH2O with EPR 3. 95% pressure is 9.5 cmH2O. 95% leak is 12.6 LPM. AHI is 1.0. No sleep complaints. Waking at night only to urinate - 1-2 x. Chronic. No PSA since 2022 but history of being elevated. Does report a lot of stop and start of stream. Pt is also noticing mild vertigo over the past month if turns over and lies on the left side. Not like vertigo in the past. Only positional. thinks he has hearing problems. Also states he is cracking his neck but no neck pain. RLS stable - was on gabapentin 900mg but decreased to 600mg as felt he was taking too many pills. Sits there watching tv in bed and legs are moving. Is taking gabapentin at least an hour prior to getting in bed. REVIEW OF SYSTEMS GENERAL:No weight loss, malaise or fevers. HEENT:Negative for frequent or significant headaches, No changes in hearing or vision, no nose bleeds or other nasal problems NECK:Negative for lumps, goiter, pain and significant neck swelling RESPIRATORY: Negative for cough, wheezing or shortness of breath. CARDIOVASCULAR: Negative for chest pain, leg swelling or palpitations. GASTROINTESTINAL: Negative for abdominal discomfort, blood in stools or black stools or change in bowel habits GENITOURINARY: See HPI. MUSCULOSKELETAL: Negative for joint pain or swelling, back pain or muscle pain. NEUROLOGIC:Pt with neuropathy - following with podiatry. SKIN:Negative for lesions, rash, and itching. LAB/IMAGING: [...] Value 06/19/2023 10.0 Glucose (mg/dL) Date Value 02/08/2024 103 (H) BUN (mg/dL) Date Value 02/08/2024 31 (H) Creatinine (mg/dL) Date Value 02/08/2024 1.43 (H) Sodium (mmol/L) Date Value 02/08/2024 142 Potassium (mmol/L) Date Value 02/08/2024 4.6 Chloride (mmol/L) Date Value 02/08/2024 106 CO2 (mmol/L) Date Value 02/08/2024 25 Protein, Total (g/dL) Date Value 02/08/2024 6.4 Albumin (g/dL) Date Value 02/08/2024 4.1 Calcium, Total (mg/dL) Date Value 02/08/2024 9.1 Alkaline Phosphatase (U/L) Date Value 02/08/2024 72 Bilirubin, Total (mg/dL) Date Value 02/08/2024 0.4 AST (U/L) Date Value 02/08/2024 20 ALT (U/L) Date Value 02/08/2024 24 Hep C Antibody IA (no units) Date Value 11/16/2015 Negative MEDICATIONS: lisinopril (ZESTRIL) 5 mg tablet^Take 1 tablet by mouth once daily.^Disp: 90 tablet^Rfl: 3 rosuvastatin (CRESTOR) 20 mg tablet^Take 1 tablet by mouth daily at bedtime.^Disp: 90 tablet^Rfl: 3 Ipratropium Breeding (ATROVENT) 21 mcg (0.03 %) nasal spray^Use 2 Sprays in the nose every 12 hours.^Disp: 3.5 mL^Rfl: 5 Clobetasol Propionate (TEMOVATE) 0.05 % external solution^Apply 1 application to affected area two times a day as needed. For the posterior scalp.^Disp: 50 mL^Rfl: 2 fluticasone (FLONASE) 50 mcg/actuation nasal spray^Use 2 Sprays in each nostril once daily. Rinse mouth after use.^Disp: 1 Each^Rfl: 0 ketoconazole (NIZORAL) 2 % shampoo^Apply to wet hair, lather for 5-10 minutes, and rinse thoroughly. Use 2-3 times weekly or as needed to control symptoms.^Disp: 120 mL^Rfl: 5 allopurinol (ZYLOPRIM) 300 mg tablet^Take 1 tablet by mouth once daily.^Disp: 90 tablet^Rfl: 3 Calcipotriene 0.005 % soln^Apply to to scalp twice daily.^Disp: 60 mL^Rfl: 3 levothyroxine (SYNTHROID) 137 mcg tablet^Take 1 tablet by mouth once daily. Except none on sundays^Disp: 90 tablet^Rfl: 4 omega 4-xxo-gzj-fish oil (FISH OIL) 100-160-1,000 mg cap^Take by mouth once daily.^Disp: ^Rfl: ascorbic acid (SUSAN-C ORAL)^Take by mouth once daily.^Disp: ^Rfl: CPAP^AutoPAP with humidification set at a range of 5-16 cmH2O. Lifetime supplies. Please fit with [employer] under nose FFM. Please provide us download after 4 weeks of use.^Disp: 1 Device^Rfl: 99 Cholecalciferol, Vitamin D3, 50 mcg (2,000 unit) cap^Take 1 capsule by mouth once daily.^Disp: ^Rfl: gabapentin (NEURONTIN) 300 mg capsule^TAKE 1 CAPSULE BY MOUTH in evening THEN 2-3 CAPSULES AT bedtime.^Disp: 360 capsule^Rfl: 0 HISTORIES PAST MEDICAL HISTORY Diagnosis Date Ascending aorta dilatation (HCC) Basal cell cancer Decreased peripheral vision of left eye Elevated prostate specific antigen (PSA) Essential hypertension 07/06/2021 GERD (gastroesophageal reflux disease) Gout Jeffry's thyroiditis with thyroid nodules Kidney stones 06/27/2023 Mild left ventricular systolic dysfunction Mild pulmonary hypertension (HCC) Mixed hyperlipidemia 11/16/2015 Obesity MAXIMILIAN (obstructive sleep apnea) 10/20/2020 Osteoarthritis Sinus bradycardia FAMILY HISTORY Problem Relation Age of Onset Hypertension Mother Diabetes Mother Prostate Cancer Father Cancer Father Stroke Maternal Grandfather Alcohol/Drug Maternal Grandfather Cancer Paternal Grandmother SOCIAL HISTORY Social History Tobacco Use Smoking status: Never Smokeless tobacco: Never Vaping Use Vaping status: Never Used Substance Use Topics Alcohol use: Not Currently Drug use: Not Currently Types: Marijuana PHYSICAL EXAMINATION BP 133/72 Pulse (!) 58 Resp 16 Wt 123.6 kg (272 lb 6.4 oz) SpO2 96% BMI 37.99 kg/m GENERAL EXAM: General appearance: NAD, pleasant. HEENT: NC/AT, nasal congestion absent, no oral lesions, membranes moist. Anthony exam unremarkable eran. NECK: ROM nml. Lungs: CTA bilaterally. CV: RRR nl S1, S2. No carotid bruits. Extr: No cyanosis, clubbing or edema. Skin: [...] No evidence of neglect. Gait: Stable with nml stride and arm swing. Assessment and Plan: ASSESSMENT/PLAN: 1. MAXIMILIAN on CPAP - ICD9: 327.23, ICD10: G47.33 (primary diagnosis) 2. Obesity, Class II, BMI 35-39.9 - ICD9: 278.00, ICD10: E66.812 Doing well on PAP. Compliance confirmed and pt with perceived benefit from PAP use. No new issues. Reminded to clean and replace equipment regularly. Advised not to drive or operate heavy machinery if sleepy. Encouraged weight loss. NOTE PT WILL BE DUE FOR NEW PAP DEVICE LATER THIS YEAR. 3. Restless legs syndrome - ICD9: 333.94, ICD10: G25.81 Some breakthrough symptoms as above, but pt reduced gabapentin dose from 900 to 600mg nightly - was tolerating higher dose without side effects and unclear as to why decrease in dose was made. agrees that he did better on higher dose (accompanied pt to visit). Thus, recommended pt to either take 900mg at 1030PM (current time of taking gabapentin), or continue the 600mg at 1030PM but take an additional 300mg at dinner time. Rx provided but also with the consideration for further increase to 1200mg total in the night time hours if needed during the interim. Note that renal function appears stable. 4. Nocturia - ICD9: 788.43, ICD10: R35.1 Etiology uncertain but concerns for prostate with history of elevated PSAs and urinary symptoms suggesting of enlarged prostate. Recommended pt follow up with PCP and I have also made PCP aware. 5. Peripheral vertigo involving left ear - ICD9: 386.10, ICD10: H81.392 History suggestive of peripheral vertigo, possibly BPPV with symptoms appearing to be associated with actual head movement. Anthony exam unremarkable, and could not induce nystagmus during visit. Will refer to vestibular therapy for evaluation and treatment if possible. Anthony Loredo MD I spent a total of 40+ minutes on the date of the service which included preparing to see the patient, [id number] patient care, completing clinical documentation, obtaining and/or reviewing separately obtained history, performing a medically appropriate examination, counseling and educating the patient/family/caregiver, ordering medications, tests, or procedures, communicating with other HCPs (not separately reported), independently interpreting results (not separately reported), and communicating results to the patient/family/caregiver. PDMP website checked and validated. All prescriptions have been APPROPRIATELY filled. No suspicious activity was identified. 07/01/2024 by Anthony Loredo MD documented in this encounter [facility] 07-01-2024 Note HNO ID: [id number] Author: JOYCE PAEZ LPN Service: ? Author Type: LICENSED NURSE Type: Progress Notes Filed: 07/01/2024 09:09 Note Text: [facility] 06-06-2024 Note HNO ID: [id number] Author: CAROLINE EL, Service: ? Author Type: Physician Type: Progress Notes Filed: 06/06/2024 16:21 Note Text: [facility] OUTPATIENT VISIT DATE June 06, 2024 PRIMARY CARE PHYSICIAN: Zoraida Tavarez [address] [place] [address] HISTORY OF PRESENT ILLNESS: Mr. Schreiber is a 68 year old male. The patient returns for follow-up secondary to a history of of mild LV systolic dysfunction, near normalized on optimal medical therapy, ascending aortic dilatation of 4.2 cm, hypertension, hyperlipidemia, obstructive sleep apnea and mitral regurgitation. He denies chest discomfort, dyspnea, orthopnea, paroxysmal after dyspnea, palpitations, near-syncope or syncope. PLAN AND RECOMMENDATIONS: The patient remains stable without apparent symptoms that would suggest angina or cardiac decompensation. Heart rate, blood pressure and recent cholesterol profile are favorable. We have therefore made no additions or changes. Dietary and lifestyle modification was reemphasized to facilitate risk factor reduction. We will look forward to reevaluating him in 6 to 7 months time with echocardiogram being updated prior to the visit so that it is available to review. Vitals: BP 118/76 Pulse 65 Ht 180.3 cm (5' 11) Wt 125.7 kg (277 lb 1.9 oz) SpO2 97% BMI 38.65 kg/m? Physical Exam Vitals reviewed. Constitutional: General: [...] Negative for pain and visual disturbance. Respiratory: Negative for chest tightness and shortness of breath. Cardiovascular: Negative for chest pain, palpitations and [...] cancer Decreased peripheral vision of left eye Elevated prostate specific antigen (PSA) Essential hypertension 07/06/2021 GERD (gastroesophageal reflux disease) Gout Jeffry's thyroiditis with thyroid nodules Kidney stones 06/27/2023 Mild left ventricular systolic dysfunction Mild pulmonary [...] Never Smokeless tobacco: Never Vaping Use Vaping status: Never Used Substance Use Topics Alcohol use: Not Currently Drug use: Not Currently Types: Marijuana FAMILY HISTORY Problem Relation Age of Onset Hypertension Mother Diabetes Mother Prostate Cancer Father Cancer Father Stroke Maternal (more content not included)... [facility] 06-06-2024 History of Presen t illness Narrative Images from the original note were not included. [facility] OUTPATIENT VISIT DATE June 06, 2024 PRIMARY CARE PHYSICIAN: Zoraida Tavarez [address] [place] [address] HISTORY OF PRESENT ILLNESS: Mr. Schreiber is a 68 year old male. The patient returns for follow-up secondary to a history of of mild LV systolic dysfunction, near normalized on optimal medical therapy, ascending aortic dilatation of 4.2 cm, hypertension, hyperlipidemia, obstructive sleep apnea and mitral regurgitation. He denies chest discomfort, dyspnea, orthopnea, paroxysmal after dyspnea, palpitations, near-syncope or syncope. PLAN AND RECOMMENDATIONS: The patient remains stable without apparent symptoms that would suggest angina or cardiac decompensation. Heart rate, blood pressure and recent cholesterol profile are favorable. We have therefore made no additions or changes. Dietary and lifestyle modification was reemphasized to facilitate risk factor reduction. We will look forward to reevaluating him in 6 to 7 months time with echocardiogram being updated prior to the visit so that it is available to review. Vitals: BP 118/76 Pulse 65 Ht 180.3 cm (5' 11) Wt 125.7 kg (277 lb 1.9 oz) SpO2 97% BMI 38.65 kg/m Physical Exam Vitals reviewed. Constitutional: General: [...] Negative for pain and visual disturbance. Respiratory: Negative for chest tightness and shortness of breath. Cardiovascular: Negative for chest pain, palpitations and [...] cancer Decreased peripheral vision of left eye Elevated prostate specific antigen (PSA) Essential hypertension 07/06/2021 GERD (gastroesophageal reflux disease) Gout Jeffry's thyroiditis with thyroid nodules Kidney stones 06/27/2023 Mild left ventricular systolic dysfunction Mild pulmonary [...] Never Smokeless tobacco: Never Vaping Use Vaping status: Never Used Substance Use Topics Alcohol use: Not Currently Drug use: Not Currently Types: Marijuana FAMILY HISTORY Problem Relation Age of Onset Hypertension Mother Diabetes Mother Prostate Cancer Father Cancer Father Stroke Maternal Grandfather Alcohol/Drug Maternal Grandfather Cancer Paternal Grandmother ALLERGIES No Known Allergies CURRENT MEDICATIONS: Ipratropium Breeding (ATROVENT) 21 mcg (0.03 %) nasal spray^Use 2 Sprays in the nose every 12 hours.^Disp: 3.5 mL^Rfl: 5 Clobetasol Propionate (TEMOVATE) 0.05 % external solution^Apply 1 application to affected area two times a day as needed. For the posterior scalp.^Disp: 50 mL^Rfl: 2 fluticasone (FLONASE) 50 mcg/actuation nasal spray^Use 2 Sprays in each nostril once daily. Rinse mouth after use.^Disp: 1 Each^Rfl: 0 ketoconazole (NIZORAL) 2 % shampoo^Apply to wet hair, lather for 5-10 minutes, and rinse thoroughly. Use 2-3 times weekly or as needed to control symptoms.^Disp: 120 mL^Rfl: 5 gabapentin (NEURONTIN) 300 mg capsule^TAKE 1 CAPSULE BY MOUTH in evening THEN 2-3 CAPSULES AT bedtime.^Disp: 360 capsule^Rfl: 0 allopurinol (ZYLOPRIM) 300 mg tablet^Take 1 tablet by mouth once daily.^Disp: 90 tablet^Rfl: 3 Calcipotriene 0.005 % soln^Apply to to scalp twice daily.^Disp: 60 mL^Rfl: 3 levothyroxine (SYNTHROID) 137 mcg tablet^Take 1 tablet by mouth once daily. Except none on sundays^Disp: 90 tablet^Rfl: 4 omega 2-wfk-pzl-fish oil (FISH OIL) 100-160-1,000 mg cap^Take by mouth once daily.^Disp: ^Rfl: ascorbic acid (SUSAN-C ORAL)^Take by mouth once daily.^Disp: ^Rfl: CPAP^AutoPAP with humidification set at a range of 5-16 cmH2O. Lifetime supplies. Please fit with Ucha[employer]se under nose FFM. Please provide us download after 4 weeks of use.^Disp: 1 Device^Rfl: 99 Cholecalciferol, Vitamin D3, 50 mcg (2,000 unit) cap^Take 1 capsule by mouth once daily.^Disp: ^Rfl: lisinopril (ZESTRIL) 5 mg tablet^Take 1 tablet by mouth once daily.^Disp: 90 tablet^Rfl: 3 rosuvastatin (CRESTOR) 20 mg tablet^Take 1 tablet by mouth daily at bedtime.^Disp: 90 tablet^Rfl: 3 triamcinolone acetonide (KENALOG) 0.5 % cream^Apply 1 application to affected area two times a day. For rash/itching. Apply sparingly. Avoid face/skin fold.^Disp: 30 g^Rfl: 2 (Patient not taking: Reported on 06/06/2024) tamsulosin (FLOMAX) 0.4 mg^Take 1 capsule by mouth daily at bedtime.^Disp: 90 capsule^Rfl: 0 (Patient not taking: Reported on 06/06/2024) Caroline El DO, FACC, [facility] Arch Pad Cementer, [facility] Ambulatory Cardiology Arch Pad Cementer, [facility] Cardiac Rehabilitation Arch Pad Cementer, [facility] Arch Pad Cementer, [facility] Arch Pad Cementer, [facility] Ambulatory Cardiology Clinical Sail Finisher Machine Profressor of Medicine, [facility] Staff Heel Scourer, Fran Armstrong Department of Cardiovascular Medicine/Heart and Vascular [place], [facility] Please note: This note has been produced using speech recognition software and may contain errors related to that system including cullen, punctuation, spelling, words, gender and phrases that may be inappropriate. documented in this encounter [facility] 05-16-[address] Solano provided last rx. Anthony Loredo MD [facility] 05-16-[address] Solano provided last rx. Anthony Loredo MD Prescription Refill Information The patient has been identified by name and date of : Yes Caregiver verified no other encounters exist for this prescription request: Yes The last office visit in the department: 12/25/23 RT IMPRESSION: Maximilian on cpap (primary encounter diagnosis) Restless legs syndrome Lynn Schreiber is a 68 year old male with PMH of MAXIMILIAN on APAP, RLS, HLD, HTN, skin cancer nose, thyroid cancer, hypothyroidism, obesity. --Patient is compliant with PAP therapy and reports subjective benefits from treatment --We reviewed PAP compliance report; AHI is normalized PLAN: - Continue Auto CPAP - Remember to clean your mask and equipment regularly, as directed. - You should be eligible for new supplies approximately every 3-6 months, depending on your insurance coverage. Contact your [employer] company for new supplies as needed. Continue gabapentin for treatment of RLS. He has decreased gabapentin to 600 mg at 8 PM, he dislikes taking any meds. He is satisfied with this regimen. Follow up 6 mos, UTOX Tereza Cardona APRN.CROSS ENTERPRISE INTEGRATOR Does the patient have a future office visit with this provider/department: Yes 07/01/24 Requested Prescriptions Pending Prescriptions Disp Refills gabapentin (NEURONTIN) 300 mg capsule 360 capsule 0 Sig: TAKE 1 CAPSULE BY MOUTH in evening THEN 2-3 CAPSULES AT bedtime. Valeria Gutierrez LPN May 16, 2024 2:59 PM documented in this encounter [facility] 05-16-2024 Telephone encounter Note Prescription Refill Information The patient has been identified by name and date of : Yes Caregiver verified no other encounters exist for this prescription request: Yes The last office visit in the department: 12/25/23 RT IMPRESSION: Maximilian on cpap (primary encounter diagnosis) Restless legs syndrome Lynn Schreiber is a 68 year old male with PMH of MAXIMILIAN on APAP, RLS, HLD, HTN, skin cancer nose, thyroid cancer, hypothyroidism, obesity. --Patient is compliant with PAP therapy and reports subjective benefits from treatment --We reviewed PAP compliance report; AHI is normalized PLAN: - Continue Auto CPAP - Remember to clean your mask and equipment regularly, as directed. - You should be eligible for new supplies approximately every 3-6 months, depending on your insurance coverage. Contact your [employer]) [employer] for new supplies as needed. Continue gabapentin for treatment of RLS. He has decreased gabapentin to 600 mg at 8 PM, he dislikes taking any meds. He is satisfied with this regimen. Follow up 6 mos, HAYLIE Cardona APRN.CROSS ENTERPRISE INTEGRATOR Does the patient have a future office visit with this provider/department: Yes 07/01/24 Requested Prescriptions Pending Prescriptions Disp Refills gabapentin (NEURONTIN) 300 mg capsule 360 capsule 0 Sig: TAKE 1 CAPSULE BY MOUTH in evening THEN 2-3 CAPSULES AT bedtime. Valeria Gutierrez LPN May 16, 2024 2:59 PM [facility] 05-16-2024 Telephone encounter Note The following approved medication requests have been transmitted electronically. Requested Prescriptions Pending Prescriptions Disp Refills Ipratropium Breeding (ATROVENT) 21 mcg (0.03 %) nasal spray 3.5 mL 5 Sig: Use 2 Sprays in the nose every 12 hours. Zoraida Tavarez APRN.CNP [facility] 05-16-2024 Miscellaneous Notes The following approved medication requests have been transmitted electronically. Requested Prescriptions Pending Prescriptions Disp Refills Ipratropium Breeding (ATROVENT) 21 mcg (0.03 %) nasal spray 3.5 mL 5 Sig: Use 2 Sprays in the nose every 12 hours. Zoraida Tavarez APRN.CNP Prescription Refill Information The patient has been identified by name and date of : Yes Caregiver verified no other encounters exist for this prescription request: Yes Caregiver confirmed with patient/requestor that no other refills are due, in the near future, with this provider at this time: Yes The last office visit in the department: 03/19/24 Does the patient have a future office visit with this provider/department: Yes 09/17/24 Requested Prescriptions Pending Prescriptions Disp Refills Ipratropium Breeding (ATROVENT) 21 mcg (0.03 %) nasal spray 3.5 mL 5 Sig: Use 2 Sprays in the nose every 12 hours. Otilia Geronimo LPN May 16, 2024 9:56 AM documented in this encounter [facility] 05-16-2024 Telephone encounter Note ENIO 03/04/2024 [facility] 05-16-2024 Miscellaneous Notes ENIO 03/04/2024 documented in this encounter [facility] 05-16-2024 Telephone encounter Note Prescription Refill Information The patient has been identified by name and date of : Yes Caregiver verified no other encounters exist for this prescription request: Yes Caregiver confirmed with patient/requestor that no other refills are due, in the near future, with this provider at this time: Yes The last office visit in the department: 03/19/24 Does the patient have a future office visit with this provider/department: Yes 09/17/24 Requested Prescriptions Pending Prescriptions Disp Refills Ipratropium Breeding (ATROVENT) 21 mcg (0.03 %) nasal spray 3.5 mL 5 Sig: Use 2 Sprays in the nose every 12 hours. Otilia Geronimo LPN May 16, 2024 9:56 AM [facility] 04-22-2024 Note HNO ID: [id number] Author: SAURAV MAX MD Service: ? Author Type: Physician Type: Progress Notes Filed: 04/22/2024 07:40 Note Text: Patient presents with: Cough: Congestion, head pressure x 1 week HPI: Feeling sick for 1 week. Head pressure is not improving, cough is worsening. Cough is productive and he has near syncope during coughing spells. Positive symptoms: Cough, Sinus pressure, Nasal Congestion, Rhinorrhea, Malaise, Fatigue, chest soreness from coughing Negative symptoms: Shortness of breath, Chest pain, Fever, Nausea, Vomiting, Diarrhea, OTC: Mucinex, delsym, Claritin No COVID testing this illness. MEDICATIONS: Current Outpatient Medications Medication Sig triamcinolone acetonide (KENALOG) 0.5 % cream Apply 1 application to affected area two times a day. For rash/itching. Apply sparingly. Avoid face/skin fold. fluticasone (FLONASE) 50 mcg/actuation nasal spray Use 2 Sprays in each nostril once daily. Rinse mouth after use. Clobetasol Propionate (TEMOVATE) 0.05 % external solution Apply 1 application to affected area two times a day as needed. For the posterior scalp. tamsulosin (FLOMAX) 0.4 mg Take 1 capsule by mouth daily at bedtime. ketoconazole (NIZORAL) 2 % shampoo Apply to wet hair, lather for 5-10 minutes, and rinse thoroughly. Use 2-3 times weekly or as needed to control symptoms. gabapentin (NEURONTIN) 300 mg capsule TAKE 1 CAPSULE BY MOUTH in evening THEN 2-3 CAPSULES AT bedtime. allopurinol (ZYLOPRIM) 300 mg tablet Take 1 tablet by mouth once daily. Calcipotriene 0.005 % soln Apply to to scalp twice daily. Ipratropium Breeding (ATROVENT) 21 mcg (0.03 %) nasal spray Use 2 Sprays in the nose every 12 hours. levothyroxine (SYNTHROID) 137 mcg tablet Take 1 tablet by mouth once daily. Except none on sundays lisinopril (ZESTRIL) 5 mg tablet Take 1 tablet by mouth once daily. rosuvastatin (CRESTOR) 20 mg tablet Take 1 tablet by mouth daily at bedtime. omega 8-xxx-mpk-fish oil (FISH OIL) 100-160-1,000 mg cap Take by mouth once daily. ascorbic acid (SUSAN-C ORAL) Take by mouth once daily. CPAP AutoPAP with humidification set at a range of 5-16 cmH2O. Lifetime supplies. Please fit with [employer]se under nose FFM. Please provide us download after 4 weeks of use. Cholecalciferol, Vitamin D3, 50 mcg (2,000 unit) cap Take 1 capsule by mouth once daily. Current Facility-Administered Medications Medication Dose Route Frequency Aminolevulinic Acid HCl 20 % soln 2 Each 2 Each TOPICAL As Directed ALLERGIES: ALLERGIES No Known Allergies VITALS: BP 140/70 Pulse 63 Temp (!) 35.9 ?C (96.6 ?F) Resp 20 Wt 122.6 kg (270 lb 4.5 oz) SpO2 98% BMI 37.70 kg/m? PHYSICAL EXAM: GEN: mildly ill appearing HEENT: PERRL, EOMI, conjunctiva clear Ears: canals clear. TMs without erythema, bulge, or effusion Sinuses: non-tender frontal sinus, non-tender maxillary sinuses Throat: moist mucous membranes, mild erythema, no exudate Neck: supple, no thyromegaly, no lymphadenopathy HEART: regular rate and rhythm, no murmurs LUNGS: clear to auscultation, no wheezes or crackles, no increased WOB ASSESSMENT/PLAN: 1. Acute cough - ICD9: 786.2, ICD10: R05.1 (primary diagnosis) 2. Acute non-recurrent sinusitis, unspecified location - ICD9: 461.9, ICD10: J01.90 - differential includes COVID-19, other viral URI, bacterial sinusitis, or atypical pneumonia which is prevalent in the community. He declines COVID testing since he is already had symptoms for 1 week. - Discussed supportive care treatment with rest, cough and cold medicine, and analgesia. - Red flags to seek further treatment include chest pain, shortness of breath, and lethargy; in the ER if severe. - DOXYCYCLINE MONOHYDRATE 100 MG CAPSULE - BENZONATATE 100 MG CAPSULE Saurav Max MD [facility] 04-22-2024 History of Presen t illness Narrative Patient presents with: Cough: Congestion, head pressure x 1 week HPI: Feeling sick for 1 week. Head pressure is not improving, cough is worsening. Cough is productive and he has near syncope during coughing spells. Positive symptoms: Cough, Sinus pressure, Nasal Congestion, Rhinorrhea, Malaise, Fatigue, chest soreness from coughing Negative symptoms: Shortness of breath, Chest pain, Fever, Nausea, Vomiting, Diarrhea, OTC: Mucinex, delsym, Claritin No COVID testing this illness. MEDICATIONS: Current Outpatient Medications Medication Sig triamcinolone acetonide (KENALOG) 0.5 % cream Apply 1 application to affected area two times a day. For rash/itching. Apply sparingly. Avoid face/skin fold. fluticasone (FLONASE) 50 mcg/actuation nasal spray Use 2 Sprays in each nostril once daily. Rinse mouth after use. Clobetasol Propionate (TEMOVATE) 0.05 % external solution Apply 1 application to affected area two times a day as needed. For the posterior scalp. tamsulosin (FLOMAX) 0.4 mg Take 1 capsule by mouth daily at bedtime. ketoconazole (NIZORAL) 2 % shampoo Apply to wet hair, lather for 5-10 minutes, and rinse thoroughly. Use 2-3 times weekly or as needed to control symptoms. gabapentin (NEURONTIN) 300 mg capsule TAKE 1 CAPSULE BY MOUTH in evening THEN 2-3 CAPSULES AT bedtime. allopurinol (ZYLOPRIM) 300 mg tablet Take 1 tablet by mouth once daily. Calcipotriene 0.005 % soln Apply to to scalp twice daily. Ipratropium Breeding (ATROVENT) 21 mcg (0.03 %) nasal spray Use 2 Sprays in the nose every 12 hours. levothyroxine (SYNTHROID) 137 mcg tablet Take 1 tablet by mouth once daily. Except none on sundays lisinopril (ZESTRIL) 5 mg tablet Take 1 tablet by mouth once daily. rosuvastatin (CRESTOR) 20 mg tablet Take 1 tablet by mouth daily at bedtime. omega 3-oxt-oix-fish oil (FISH OIL) 100-160-1,000 mg cap Take by mouth once daily. ascorbic acid (SUSAN-C ORAL) Take by mouth once daily. CPAP AutoPAP with humidification set at a range of 5-16 cmH2O. Lifetime supplies. Please fit with dreamwear under nose FFM. Please provide us download after 4 weeks of use. Cholecalciferol, Vitamin D3, 50 mcg (2,000 unit) cap Take 1 capsule by mouth once daily. Current Facility-Administered Medications Medication Dose Route Frequency Aminolevulinic Acid HCl 20 % soln 2 Each 2 Each TOPICAL As Directed ALLERGIES: ALLERGIES No Known Allergies VITALS: BP 140/70 Pulse 63 Temp (!) 35.9 C (96.6 F) Resp 20 Wt 122.6 kg (270 lb 4.5 oz) SpO2 98% BMI 37.70 kg/m PHYSICAL EXAM: GEN: mildly ill appearing HEENT: PERRL, EOMI, conjunctiva clear Ears: canals clear. TMs without erythema, bulge, or effusion Sinuses: non-tender frontal sinus, non-tender maxillary sinuses Throat: moist mucous membranes, mild erythema, no exudate Neck: supple, no thyromegaly, no lymphadenopathy HEART: regular rate and rhythm, no murmurs LUNGS: clear to auscultation, no wheezes or crackles, no increased WOB ASSESSMENT/PLAN: 1. Acute cough - ICD9: 786.2, ICD10: R05.1 (primary diagnosis) 2. Acute non-recurrent sinusitis, unspecified location - ICD9: 461.9, ICD10: J01.90 - differential includes COVID-19, other viral URI, bacterial sinusitis, or atypical pneumonia which is prevalent in the community. He declines COVID testing since he is already had symptoms for 1 week. - Discussed supportive care treatment with rest, cough and cold medicine, and analgesia. - Red flags to seek further treatment include chest pain, shortness of breath, and lethargy; in the ER if severe. - DOXYCYCLINE MONOHYDRATE 100 MG CAPSULE - BENZONATATE 100 MG CAPSULE Saurav Max MD documented in this encounter [facility] 03-21-2024 Telephone encounter Note Talked to . 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 He does have ATB and taking. [facility] 03-21-2024 Miscellaneous Notes Talked to . 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 He does have ATB and taking. Please see if pt. Got the keflex (antibiotics). I will order a steroid alone but stronger than what he had. Called the pharmacy yesterday and pt didn't pick it up yet . They said it would be over 100$ so PA completed. This was denied. It doesn't say what would be covered. ASIF SCHREIBER ([place]: [id number]) NACHO Rx #: [id number] Outcome Denied on March 20 by [employer] 2017 Denied. This drug used for FOLLICULAR DISORDER UNSPECIFIED is not an approved use. Medicare Part D rules states the drug must be used for a medically-accepted indication. A medically-accepted indication means a use that is approved by the Food and Drug Administration (FDA), or a use supported by specific resources. These are the [facility] Formulary Service Drug Information and DRUGDEX Information System. Therefore, this drug cannot be covered under your Medicare Part D benefit. Drug Clotrimazole-Betamethasone 1-0.05% lotion [employer] Electronic Prior Authorization Request Form. Unable to complete PA electronically. Completed via covermymeds. LYNN SCHREIBER ([place]: [id number]) - [id number] Clotrimazole-Betamethasone 1-0.05% lotion status: PA Request Created: March 19, 2024 [id number] Sent: March 20, 2024 documented in this encounter [facility] 03-21-2024 Telephone encounter Note Please see if pt. Got the keflex (antibiotics). I will order a steroid alone but stronger than what he had. [facility] 03-21-2024 Telephone encounter Note Called the pharmacy yesterday and pt didn't pick it up yet . They said it would be over 100$ so PA completed. This was denied. It doesn't say what would be covered. ASIF SCHREIBER ([place]: [id number]) NACHO Rx #: [id number] Outcome Denied on March 20 by [employer] 2017 Denied. This drug used for FOLLICULAR DISORDER UNSPECIFIED is not an approved use. Medicare Part D rules states the drug must be used for a medically-accepted indication. A medically-accepted indication means a use that is approved by the Food and Drug Administration (FDA), or a use supported by specific resources. These are the [facility] Formulary Service Drug Information and DRUGDEX Information System. Therefore, this drug cannot be covered under your Medicare Part D benefit. Drug Clotrimazole-Betamethasone 1-0.05% lotion [employer] Electronic Prior Authorization Request Form. [facility] 03-20-2024 Telephone encounter Note Unable to complete PA electronically. Completed via covermymeds. LYNN SCHREIBER ([place]: [id number]) - [id number] Clotrimazole-Betamethasone 1-0.05% lotion status: PA Request Created: March 19, 2024 [id number] Sent: March 20, 2024 [facility] 03-19-2024 Instructions Zoraida Tavarez APRN.[place] - 03/19/2024 1:00 PM EDT 1) Keflex 2 x day for 5 days 2) Clotrimazole- betamethasone cream 2 x day to fingers and chest until healed 3) Follow up in 6 months documented in this encounter [facility] 03-19-2024 Note HNO ID: [id number] Author: ZORAIDA TAVAREZ APRN.[place] Service: ? Author Type: Clinical Nurse Specialist Type: Progress Notes Filed: 03/19/2024 13:00 Note Text: This is a 68 year old male who presents today with: Patient presents with: Derm Problem HISTORY OF PRESENT ILLNESS: Lynn Schreiber is a 68 year old male. Patient presents with: Derm Problem Was in [place] swimming every day for several hours. They came to put chemical in pool frequently. Seen in urgent care. [place] for ;infected hair follicles with a lotion. Chest rash- pustules drying but scabbed over and he picks at them because they itch. Using triamcinolone but almost out. Between fingers and ankles itch. Had some on upper back is improved. Between fingers is scaly and skin very tough. Chest is still irritated. Ankles improved. No fever or chills. PAST MEDICAL HISTORY: PAST MEDICAL HISTORY Diagnosis Date Ascending aorta dilatation (HCC) Basal cell cancer Decreased peripheral vision of left eye Elevated prostate specific antigen (PSA) Essential hypertension 07/06/2021 GERD (gastroesophageal reflux disease) Gout Jeffry's thyroiditis with thyroid nodules Kidney stones 06/27/2023 Mild left ventricular systolic dysfunction Mild pulmonary [...] ALLERGIES Patient has no known allergies. MEDICATIONS Current Outpatient Medications Medication Sig triamcinolone (KENALOG) 0.025 % cream Apply 1 application to affected area two times a day. fluticasone (FLONASE) 50 mcg/actuation nasal spray Use 2 Sprays in each nostril once daily. Rinse mouth after use. Clobetasol Propionate (TEMOVATE) 0.05 % external solution Apply 1 application to affected area two times a day as needed. For the posterior scalp. tamsulosin (FLOMAX) 0.4 mg Take 1 capsule by mouth daily at bedtime. ketoconazole (NIZORAL) 2 % shampoo Apply to wet hair, lather for 5-10 minutes, and rinse thoroughly. Use 2-3 times weekly or as needed to control symptoms. gabapentin (NEURONTIN) 300 mg capsule TAKE 1 CAPSULE BY MOUTH in evening THEN 2-3 CAPSULES AT bedtime. allopurinol (ZYLOPRIM) 300 mg tablet Take 1 tablet by mouth once daily. Calcipotriene 0.005 % soln Apply to to scalp twice daily. Ipratropium Breeding (ATROVENT) 21 mcg (0.03 %) nasal spray Use 2 Sprays in the nose every 12 hours. levothyroxine (SYNTHROID) 137 mcg tablet Take 1 tablet by mouth once daily. Except none on sundays lisinopril (ZESTRIL) 5 mg tablet Take 1 tablet by mouth once daily. rosuvastatin (CRESTOR) 20 mg tablet Take 1 tablet by mouth daily at bedtime. omega 1-ivi-vad-fish oil (FISH OIL) 100-160-1,000 mg cap Take by mouth once daily. ascorbic acid (SUSAN-C ORAL) Take by mouth once daily. CPAP AutoPAP with humidification set at a range of 5-16 cmH2O. Lifetime supplies. Please fit with [employer] under nose FFM. Please provide us download after 4 weeks of use. Cholecalciferol, Vitamin D3, 50 mcg (2,000 unit) cap Take 1 capsule by mouth once daily. Current Facility-Administered Medications Medication Dose Route Frequency Aminolevulinic Acid HCl 20 % soln 2 Each 2 Each TOPICAL As Directed FAMILY HISTORY Problem Relation Age of Onset Hypertension Mother Diabetes Mother Prostate Cancer Father Cancer Father Stroke Maternal Grandfather Alcohol/Drug Maternal Grandfather Cancer Paternal Grandmother Social History Tobacco Use Smoking status: Never Smokeless tobacco: Never Vaping Use Vaping status: Never Used Substance Use Topics Alcohol use: Not Currently Drug use: Not Currently Types: Marijuana REVIEW OF SYSTEMS GENERAL: No weight loss, malaise or fevers/chills HEENT: Negative for frequent or significant headaches, No changes in vision. Some hearing loss. NECK: Negative for lumps, goiter, pain and significant neck swelling RESPIRATORY: Negative for cough, hemoptysis, wheezing, + always dyspnea or shortness of breath, adherent to CPAP CARDIOVASCULAR: Negative for chest pain, leg swelling, orthopnea, or palpitations GI: No nausea, vomiting, or diarrhea/constipation. No hematochezia/melena. No heartburn or reflux symptoms. : No history of dysuria, frequency or incontinence MUSCULOSKELETAL: Negative for joint pain or swelling. SKIN: Scaly skin between fingers and chest follicle are inflamed and itchy ENDOCRINE: Negative for cold or heat intolerance, polyuria, polydipsia and goiter NEURO: No history of headaches, syncope, paralysis, seizures or tremors (more content not included)... [facility] 10-15-2024 History of Presen t illness Narrative This is a 68 year old male who presents today with: Patient presents with: Derm Problem HISTORY OF PRESENT ILLNESS: Lynn Schreiber is a 68 year old male. Patient presents with: Derm Problem Was in [place] swimming every day for several hours. They came to put chemical in pool frequently. Seen in urgent care. [place] for ;infected hair follicles with a lotion. Chest rash- pustules drying but scabbed over and he picks at them because they itch. Using triamcinolone but almost out. Between fingers and ankles itch. Had some on upper back is improved. Between fingers is scaly and skin very tough. Chest is still irritated. Ankles improved. No fever or chills. PAST MEDICAL HISTORY: PAST MEDICAL HISTORY Diagnosis Date Ascending aorta dilatation (HCC) Basal cell cancer Decreased peripheral vision of left eye Elevated prostate specific antigen (PSA) Essential hypertension 07/06/2021 GERD (gastroesophageal reflux disease) Gout Jeffry's thyroiditis with thyroid nodules Kidney stones 06/27/2023 Mild left ventricular systolic dysfunction Mild pulmonary [...] ALLERGIES Patient has no known allergies. MEDICATIONS Current Outpatient Medications Medication Sig triamcinolone (KENALOG) 0.025 % cream Apply 1 application to affected area two times a day. fluticasone (FLONASE) 50 mcg/actuation nasal spray Use 2 Sprays in each nostril once daily. Rinse mouth after use. Clobetasol Propionate (TEMOVATE) 0.05 % external solution Apply 1 application to affected area two times a day as needed. For the posterior scalp. tamsulosin (FLOMAX) 0.4 mg Take 1 capsule by mouth daily at bedtime. ketoconazole (NIZORAL) 2 % shampoo Apply to wet hair, lather for 5-10 minutes, and rinse thoroughly. Use 2-3 times weekly or as needed to control symptoms. gabapentin (NEURONTIN) 300 mg capsule TAKE 1 CAPSULE BY MOUTH in evening THEN 2-3 CAPSULES AT bedtime. allopurinol (ZYLOPRIM) 300 mg tablet Take 1 tablet by mouth once daily. Calcipotriene 0.005 % soln Apply to to scalp twice daily. Ipratropium Breeding (ATROVENT) 21 mcg (0.03 %) nasal spray Use 2 Sprays in the nose every 12 hours. levothyroxine (SYNTHROID) 137 mcg tablet Take 1 tablet by mouth once daily. Except none on sundays lisinopril (ZESTRIL) 5 mg tablet Take 1 tablet by mouth once daily. rosuvastatin (CRESTOR) 20 mg tablet Take 1 tablet by mouth daily at bedtime. omega 3-wim-apw-fish oil (FISH OIL) 100-160-1,000 mg cap Take by mouth once daily. ascorbic acid (SUSAN-C ORAL) Take by mouth once daily. CPAP AutoPAP with humidification set at a range of 5-16 cmH2O. Lifetime supplies. Please fit with [employer] under nose FFM. Please provide us download after 4 weeks of use. Cholecalciferol, Vitamin D3, 50 mcg (2,000 unit) cap Take 1 capsule by mouth once daily. Current Facility-Administered Medications Medication Dose Route Frequency Aminolevulinic Acid HCl 20 % soln 2 Each 2 Each TOPICAL As Directed FAMILY HISTORY Problem Relation Age of Onset Hypertension Mother Diabetes Mother Prostate Cancer Father Cancer Father Stroke Maternal Grandfather Alcohol/Drug Maternal Grandfather Cancer Paternal Grandmother Social History Tobacco Use Smoking status: Never Smokeless tobacco: Never Vaping Use Vaping status: Never Used Substance Use Topics Alcohol use: Not Currently Drug use: Not Currently Types: Marijuana REVIEW OF SYSTEMS GENERAL: No weight loss, malaise or fevers/chills HEENT: Negative for frequent or significant headaches, No changes in vision. Some hearing loss. NECK: Negative for lumps, goiter, pain and significant neck swelling RESPIRATORY: Negative for cough, hemoptysis, wheezing, + always dyspnea or shortness of breath, adherent to CPAP CARDIOVASCULAR: Negative for chest pain, leg swelling, orthopnea, or palpitations GI: No nausea, vomiting, or diarrhea/constipation. No hematochezia/melena. No heartburn or reflux symptoms. : No history of dysuria, frequency or incontinence MUSCULOSKELETAL: Negative for joint pain or swelling. SKIN: Scaly skin between fingers and chest follicle are inflamed and itchy ENDOCRINE: Negative for cold or heat intolerance, polyuria, polydipsia and goiter NEURO: No history of headaches, syncope, paralysis, seizures or tremors MOOD: Negative for depression, anxiety, or suicidal ideation. EXAM: BP 122/70 Pulse (!) 57 Resp 18 Wt 122 kg (268 lb 15.4 oz) SpO2 96% BMI 37.51 kg/m PHYSICAL EXAM: Physical Exam Vitals reviewed. Constitutional: Appearance: Normal appearance. He is obese. HENT: Head: Normocephalic. Cardiovascular: Rate and Rhythm: Normal rate and regular rhythm. Pulses: Normal pulses. Heart sounds: Normal heart sounds. No murmur heard. No gallop. Comments: Diminished at apex, no lower ext. edema Pulmonary: Effort: Pulmonary effort is normal. No respiratory distress. Breath sounds: Normal breath sounds. No wheezing or rhonchi. Abdominal: General: Bowel sounds are normal. Palpations: Abdomen is soft. Musculoskeletal: General: Normal range of motion. Skin: General: Skin is warm and dry. Comments: Tough, thick skin No visible rash on finger webs, itchy Chest with pustules that are irritated and itchy Neurological: General: No focal deficit present. Mental Status: He is alert and oriented to person, place, and time. Psychiatric: Mood and Affect: Mood normal. Behavior: Behavior normal. LABS: reviewed TSH & CMP done recently ASSESSMENT/PLAN: 1. Essential hypertension - ICD9: 401.9, ICD10: I10 (primary diagnosis) - Controlled - Recommend home blood pressure monitoring, to bring results to next visit - Encouraged sodium restriction, DASH or Mediterranean diet - Recommend regular aerobic exercise 2. 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) - ICD9: 441.2, ICD10: I71.21 Followed by cardiology 3. MAXIMILIAN (obstructive sleep apnea) - ICD9: 327.23, ICD10: G47.33 Adherent to CPAP 4. Mixed hyperlipidemia - ICD9: 272.2, ICD10: E78.2 - Controlled - Counseled on healthy diet and regular exercise 5. Folliculitis - ICD9: 704.8, ICD10: L73.9 - Keflex 2 x day for 5 days - clotrimazole with betamethasone cream 2 x day to chest and fingers Discussed treatment plan and patient voices understanding. Patient's questions answered appropriately. Medications and potential side effects were discussed and patient voices understanding. Return to the office as scheduled or as needed for worsening/no improvement. Zoraida Tavarez APRN.CNP documented in this encounter [facility] 02-22-2024 Note HNO ID: [id number] Author: ELENA SEPULVEDA MD Service: ? Author Type: Physician Type: Progress Notes Filed: 02/22/2024 14:15 Note Text: FOLLOW UP VISIT This Team Access Model encounter involved medical decision making with virtual visit including video .Patient consented to the visit. I have communicated my name and active licensure. The patient's identity and physical location were verified at the time of this visit. Either the patient or their legal patient relations representative has been informed of the risks and benefits of -- and alternatives to -- treatment through a remote evaluation and consents to proceed with the evaluation remotely. THIS NOTE WAS CARRIED FORWARD FROM THE VISIT WITH ME IN JUL 2022 AND ADDENDED APPROPRIATE TO REFLECT TODAY'S VISIT WITH HISTORY, EXAM, ROS, DATA REVIEWED AND ASSESSMENT AND PLAN. 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 , post thyroidectomy and SAXENA Last visit: Apr [address] Singh,2014 with me HPI: Lynn Schreiber 63 year old male Duration: 2010 Modifying [...] to retire soon Trying to lose weight INTERVAL HPI (February 22, 2024 ): He is now retired Still taking his synthroid with other pills Weight is stable Denies any lumps in neck Denies any hypothyroid symptoms PAST MEDICAL HISTORY Diagnosis Date Ascending aorta dilatation (HCC) Basal cell cancer Decreased peripheral vision of left eye Elevated prostate specific antigen (PSA) Essential hypertension 07/06/2021 GERD (gastroesophageal reflux disease) Gout Jeffry's thyroiditis with thyroid nodules Kidney stones 06/27/2023 Mild left ventricular systolic dysfunction Mild pulmonary [...] Grandmother SOCIAL HISTORY Employer And Job Title: [employer] ([employer]) Marital Status: Tobacco Use: Never Alcohol Use: No Drug Use: No Sexual Activity: Not on file Current Outpatient Medications Medication Sig triamcinolone (KENALOG) 0.025 % cream Apply 1 application to affected area two times a day. benzonatate (TESSALON PERLE) 100 mg capsule Take 2 capsules by mouth three times a day as needed. (Patient not taking: Reported on 02/02/2024) fluticasone (FLONASE) 50 mcg/actuation nasal spray Use 2 Sprays in each nostril once daily. Rinse mouth after use. Clobetasol Propionate (TEMOVATE) 0.05 % external solution Apply 1 application to affected area two times a day as needed. For the posterior scalp. tamsulosin (FLOMAX) 0.4 mg Take 1 capsule by mouth daily at bedtime. ketoconazole (NIZORAL) 2 % shampoo Apply to wet hair, lather for 5-10 minutes, and rinse thoroughly. Use 2-3 times weekly or as needed to control symptoms. gabapentin (NEURONTIN) 300 mg capsule TAKE 1 CAPSULE BY MOUTH in evening THEN 2-3 CAPSULES AT bedtime. allopurinol (ZYLOPRIM) 300 mg tablet Take 1 tablet by mouth once daily. Calcipotriene 0.005 % soln Apply to to scalp twice daily. Ipratropium Breeding (ATROVENT) 21 mcg (0.03 %) nasal spray Use 2 Sprays in the nose every 12 hours. levothyroxine (SYNTHROID) 137 mcg tablet Take 1 tablet by mouth once daily. Except none on sundays lisinopril (ZESTRIL) 5 mg tablet Take 1 tablet by mouth once daily. rosuvastatin (CRESTOR) 20 mg tablet Take 1 tablet by mouth daily at bedtime. omega 7-kzn-ags-fish oil (FISH OIL) 100-160-1,000 mg cap Take by mouth once daily. ascorbic acid (SUSAN-C ORAL) Take by mouth once daily. CPAP AutoPAP with humidification set at a range of 5-16 cmH2O. Lifetime supplies. Please fit with dreamwear under nose FFM. Please provide us download after 4 weeks of use. Cholecalciferol, Vitamin D3, 50 mcg (2,000 unit) cap Take 1 capsule by mouth once daily. Current Facility-Administered Medications Medicatio (more content not included)... [facility] 02-22-2024 History of Presen t illness Narrative FOLLOW UP VISIT This Team Access Model encounter involved medical decision making with virtual visit including video .Patient consented to the visit. I have communicated my name and active licensure. The patient's identity and physical location were verified at the time of this visit. Either the patient or their legal patient relations representative has been informed of the risks and benefits of -- and alternatives to -- treatment through a remote evaluation and consents to proceed with the evaluation remotely. THIS NOTE WAS CARRIED FORWARD FROM THE VISIT WITH ME IN JUL 2022 AND ADDENDED APPROPRIATE TO REFLECT TODAY'S VISIT WITH HISTORY, EXAM, ROS, DATA REVIEWED AND ASSESSMENT AND PLAN. 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 , post thyroidectomy and SAXENA Last visit: Apr [address] Singh,2015 with me HPI: Lynn Schreiber 63 year old male Duration: 2010 Modifying [...] to retire soon Trying to lose weight INTERVAL HPI (February 22, 2024 ): He is now retired Still taking his synthroid with other pills Weight is stable Denies any lumps in neck Denies any hypothyroid symptoms PAST MEDICAL HISTORY Diagnosis Date Ascending aorta dilatation (HCC) Basal cell cancer Decreased peripheral vision of left eye Elevated prostate specific antigen (PSA) Essential hypertension 07/06/2021 GERD (gastroesophageal reflux disease) Gout Jeffry's thyroiditis with thyroid nodules Kidney stones 06/27/2023 Mild left ventricular systolic dysfunction Mild pulmonary [...] Grandmother SOCIAL HISTORY Employer And Job Title: [employer] ([employer]) Marital Status: Tobacco Use: Never Alcohol Use: No Drug Use: No Sexual Activity: Not on file Current Outpatient Medications Medication Sig triamcinolone (KENALOG) 0.025 % cream Apply 1 application to affected area two times a day. benzonatate (TESSALON PERLE) 100 mg capsule Take 2 capsules by mouth three times a day as needed. (Patient not taking: Reported on 02/02/2024) fluticasone (FLONASE) 50 mcg/actuation nasal spray Use 2 Sprays in each nostril once daily. Rinse mouth after use. Clobetasol Propionate (TEMOVATE) 0.05 % external solution Apply 1 application to affected area two times a day as needed. For the posterior scalp. tamsulosin (FLOMAX) 0.4 mg Take 1 capsule by mouth daily at bedtime. ketoconazole (NIZORAL) 2 % shampoo Apply to wet hair, lather for 5-10 minutes, and rinse thoroughly. Use 2-3 times weekly or as needed to control symptoms. gabapentin (NEURONTIN) 300 mg capsule TAKE 1 CAPSULE BY MOUTH in evening THEN 2-3 CAPSULES AT bedtime. allopurinol (ZYLOPRIM) 300 mg tablet Take 1 tablet by mouth once daily. Calcipotriene 0.005 % soln Apply to to scalp twice daily. Ipratropium Breeding (ATROVENT) 21 mcg (0.03 %) nasal spray Use 2 Sprays in the nose every 12 hours. levothyroxine (SYNTHROID) 137 mcg tablet Take 1 tablet by mouth once daily. Except none on sundays lisinopril (ZESTRIL) 5 mg tablet Take 1 tablet by mouth once daily. rosuvastatin (CRESTOR) 20 mg tablet Take 1 tablet by mouth daily at bedtime. omega 1-wti-xgp-fish oil (FISH OIL) 100-160-1,000 mg cap Take by mouth once daily. ascorbic acid (SUSAN-C ORAL) Take by mouth once daily. CPAP AutoPAP with humidification set at a range of 5-16 cmH2O. Lifetime supplies. Please fit with [employer] under nose FFM. Please provide us download after 4 weeks of use. Cholecalciferol, Vitamin D3, 50 mcg (2,000 unit) cap Take 1 capsule by mouth once daily. Current Facility-Administered Medications Medication Dose Route Frequency Aminolevulinic Acid HCl 20 % soln 2 Each 2 Each TOPICAL As Directed Review of patient's allergies indicates: No Known Allergies ROS: Answers submitted by the patient for this visit: Core Review of Systems (Submitted on 02/16/2024) Fever : No Night sweats: No Recent unintentional weight change: No Nasal Congestion: No Hearing Loss: No Vision Disturbance: No A cough: No Difficulty Breathing?: No Chest pain: No Irregular heartbeat: No Leg Swelling: No Nausea: No Diarrhea: No Black tarry stools: No Difficulty Urinating?: No Awaken at Night More Than Once to Urinate?: Yes Joint pain or stiffness: Yes Leg or Foot Discomfort at Night?: Yes A rash: No Dizziness: No Headaches: No Memory Loss: No Seizures: No VIDEO EXAM: (if completed, performed via video enabled technology) GENERAL: alert and appropriate, in no distress, well-hydrated, well nourished, and happy, smiling, interactive LABS: Component Latest Ref Rng & Units [...] <14.4 IU/mL 1.8 SURGERY: 12/23/2010/Dr Mike Suresh, [facility], report scanned in PATHOLOGY: scanned in system Hurthle cell Capsular invasion + Vascular invasion+ Thyroid cancer: Tumor type : Hurthle cell Tumor diameter 4 cm Solitary yes Extrathyroidal invasion no Node status neg Metastases unknown Complete excision yes TNM/AJCC: [id number] Stage II Ablation SAXENA -2011: 101MCi Post-therapy scan neg Last scan 2011 Last neck US: 2012 ASSESSMENT: Lynn Schreiber 63 year old with Hurthle cell thyroid cancer , Stage II,, s/p thyroidectomy and SAXENA with 101 mCi in 2011 , now on T4 suppression therapy #TSH goal: The recommended TSH goal would be 1-2 Will ease TSH goal to 1-2-- Ok to take it with other pills in am as long as levels stay good Educated about preference to take the synthroid by iteself in am TSH this time was a bit higher than baseline at 3.9 compared to 1.7 before, will leave dose as is since asymptomatic Knows to message if develops hypothyroid symptoms Ct 6 pills a week for now # Surveillance: Tg continues to stay neg Howver Tg ab was trending up compared to previous--Last two have been stable and undetectable in 2019 and 2020. This year barel at 1 .0 Continue to monitor Neck US in 2013: normal Repeat neck US if Tg becomes abnormal Takes synthroid with other pills . OK to do it since levels have [...] Elena Sepulveda MD documented in this encounter [facility] 02-06-2024 Instructions Alda Sky APRN.[employer] INTEGRATOR - 02/06/2024 4:55 PM EDT SKIN CARE AFTER CRYOSURGERY The skin's response to cryosurgery (freezing) can be mild to severe, depending on the depth of the freeze and location of the area treated. You may have minimal redness and swelling with little discomfort or significant discoloration and blistering with considerable discomfort. A burning sensation in the skin may last from several minutes to several hours after the procedure. Follow these instructions when caring for an area treated by cryosurgery: 1. Please clean the area every day with gentle soap and water. It is not necessary to cover the site with a bandage. However, it may be used for protection and it must be changed daily. Do not leave a soiled or wet bandage on the wound. 2. If you are experiencing discomfort you may use a cool compress, elevate the area or take over the counter pain relievers. 3. Apply Vaseline or Aquaphor daily to the site. This can help with itching, irritation, and discomfort. -The lesion may take 2-4 weeks to fully resolve. Depending on the severity of treatment and lesion treated, it may take longer. -DO NOT USE NEOSPORIN OR BACITRACIN as there is a fairly high incidence of allergic response to these products. -You may experience some mild discomfort, redness, swelling, and/or a clear discharge from the wound after your procedure. Severe pain, worsening swelling, and foul-smelling discharge from the site are NOT to be expected. If you have concerns about how your wounds are healing, please send your provider a [email or web address] message or call . documented in this encounter [facility] 02-06-2024 Note HNO ID: [id number] Author: ALDA SKY APRN.[place] Service: ? Author Type: Nurse Practitioner Type: Progress Notes Filed: 02/15/2024 07:13 Note Text: Department of Dermatology Alda Sky APRN.CNP Last visit in Dermatology: 01/02/2024 Objective/Assessment/Plan 1. Scar Left Nasal Sidewall One small slightly hypopigmented scarred macule Observational course. Monitor for growth and changes. 2. AK (actinic keratosis) Mid Forehead Erythematous, hyperkeratotic papule CRYOTHERAPY SKIN LESION - Mid Forehead Complexity: simple Destruction method: cryotherapy Informed consent: discussed and consent obtained Timeout: patient name, date of , surgical site, and procedure verified Lesion destroyed using liquid nitrogen: Yes Cryotherapy cycles: 2 Outcome: patient tolerated procedure well with no complications Post-procedure details: wound care instructions given Additional details: Actinic keratosis - Discussed premalignant etiology - Discussed risks and benefits of treatment options including cryotherapy vs Efudex 5% vs. Photodynamic Therapy (PDT). - Given recommend local therapy with cryotherapy. - Patient elects for treatment with Cryotherapy: Risks, benefits, alternatives, complications, and personnel required for cryosurgery were reviewed with the patient. Specifically, the risks of permanent scarring, loss or darkening of skin color, blister, incomplete treatment, and recurrence of the lesion were discussed. The patient verbalizes understanding and wishes to proceed. - Cryosurgery performed with Liquid Nitrogen via cryostat spray gun to Actinic Keratosis . - Patient tolerated well and wound care was discussed. Return if lesions fail to fully resolve. Follow-up as noted below or as needed. Chief Complaint: Patient presents with: LESION, SKIN Subjective and Objective HPI: Lynn Schreiber is a 68 year old male who presents for: Recheck lesion on left nasal sidewall. Patient has been applying aquaphor daily. He states it has improved. Doesn't bleed or tingle any more. Skin appears to be well healed s/p mohs. Past medical history is reviewed. Medication list is reviewed. Physical Exam included: Face Intake information obtained by FANTASMA Black APRN.[place] [facility] 02-06-2024 History of Presen t illness Narrative Images from the original note were not included. Department of Dermatology Alda Sky APRN.[place] Last visit in Dermatology: 01/02/2024 Objective/Assessment/Plan 1. Scar Left Nasal Sidewall One small slightly hypopigmented scarred macule Observational course. Monitor for growth and changes. 2. AK (actinic keratosis) Mid Forehead Erythematous, hyperkeratotic papule CRYOTHERAPY SKIN LESION - Mid Forehead Complexity: simple Destruction method: cryotherapy Informed consent: discussed and consent obtained Timeout: patient name, date of , surgical site, and procedure verified Lesion destroyed using liquid nitrogen: Yes Cryotherapy cycles: 2 Outcome: patient tolerated procedure well with no complications Post-procedure details: wound care instructions given Additional details: Actinic keratosis - Discussed premalignant etiology - Discussed risks and benefits of treatment options including cryotherapy vs Efudex 5% vs. Photodynamic Therapy (PDT). - Given recommend local therapy with cryotherapy. - Patient elects for treatment with Cryotherapy: Risks, benefits, alternatives, complications, and personnel required for cryosurgery were reviewed with the patient. Specifically, the risks of permanent scarring, loss or darkening of skin color, blister, incomplete treatment, and recurrence of the lesion were discussed. The patient verbalizes understanding and wishes to proceed. - Cryosurgery performed with Liquid Nitrogen via cryostat spray gun to Actinic Keratosis . - Patient tolerated well and wound care was discussed. Return if lesions fail to fully resolve. Follow-up as noted below or as needed. Chief Complaint: Patient presents with: LESION, SKIN Subjective and Objective HPI: Lynn Schreiber is a 68 year old male who presents for: Recheck lesion on left nasal sidewall. Patient has been applying aquaphor daily. He states it has improved. Doesn't bleed or tingle any more. Skin appears to be well healed s/p mohs. Past medical history is reviewed. Medication list is reviewed. Physical Exam included: Face Intake information obtained by FANTASMA Black APRN.[employer] INTEGRATOR documented in this encounter [facility] 02-02-2024 Instructions Amelia Domingo APRN.[place] - 02/02/2024 7:41 AM EDT ASSESSMENT/PLAN: 1. Folliculitis - ICD9: 704.8, ICD10: L73.9 (primary diagnosis) - CEPHALEXIN 500 MG CAPSULE 2. Rash - ICD9: 782.1, ICD10: R21 - PREDNISONE 20 MG TABLET - TRIAMCINOLONE ACETONIDE 0.025 % TOPICAL CREAM - Follow-up with your PCP in 3-5 days if symptoms have not improved or sooner if symptoms worsen - Discussed red flags and need for immediate medical evaluation if any occur. - Discussed supportive care treatment with fluids, rest and analgesia. - Discussed expected course of illness Amelia Domingo APRN.CNP documented in this encounter [facility] 02-02-2024 Note HNO ID: [id number] Author: AMELIA DOMINGO APRN.CNP Service: ? Author Type: Nurse Practitioner Type: Progress Notes Filed: 02/02/2024 07:41 Note Text: Subjective Rash Pertinent negatives include no congestion, cough, fever or sore throat. Lynn Schreiber is a 68 year old male who presents with a rash on his chest and abdomen for the past 3 days. States it is itchy. Not painful. No fever or associated URI symptoms. He has not used any medication on it at home. Recently returned from vacation in [place] where he was in the pool for 7 hours a day. States it was 118 degrees there. Review of Systems Constitutional: Negative for chills and fever. HENT: Negative for congestion and sore throat. Respiratory: Negative for cough. Cardiovascular: Negative. Musculoskeletal: Negative for myalgias. Skin: Positive for itching and rash. BP 135/77 Pulse (!) 57 Temp 36.6 ?C (97.8 ?F) Resp 18 Wt 121.3 kg (267 lb 6.7 oz) SpO2 97% BMI 37.30 kg/m? PAST MEDICAL HISTORY No date: Ascending aorta dilatation (HCC) No date: Basal cell cancer No date: Decreased peripheral vision of left eye No date: Elevated prostate specific antigen (PSA) 07/06/2021: Essential hypertension No date: GERD (gastroesophageal reflux disease) No date: Gout No date: Jeffry's thyroiditis Comment: with thyroid nodules 06/27/2023: Kidney stones No date: Mild left ventricular systolic dysfunction No date: Mild pulmonary hypertension (HCC) 11/16/2015: Mixed hyperlipidemia No date: Obesity 10/20/2020: MAXIMILIAN (obstructive sleep apnea) No date: Osteoarthritis No date: Sinus bradycardia PAST SURGICAL HISTORY 04-04-14: COLONOSCOPY Comment: repeat in 10 yrs 12-23-10: INT REPAIR SCALP,SYDNI,TRUNK <2.5CM No date: PAST SURGICAL HISTORY OF Comment: left knee No date: PAST SURGICAL HISTORY OF Comment: right hammer toe No date: PAST SURGICAL HISTORY OF Comment: left hammer toe 12-23-10: REM LESION TRUNK,ARM, LEG <0.5 CM 12-23-10: THYROIDECTOMY TOTAL/COMPLETE ALLERGIES Patient has no known allergies. MEDICATIONS cephALEXin (KEFLEX) 500 mg capsuleTake 1 capsule by mouth three times a day for 7 days.Disp: 21 capsuleRfl: 0 predniSONE (DELTASONE) 20 mg tabletTake 2 tablets by mouth once daily for 4 days. Take daily with food.Disp: 8 tabletRfl: 0 triamcinolone (KENALOG) 0.025 % creamApply 1 application to affected area two times a day.Disp: 90 gRfl: 0 benzonatate (TESSALON PERLE) 100 mg capsuleTake 2 capsules by mouth three times a day as needed.Disp: 30 capsuleRfl: 0 (Patient not taking: Reported on 02/02/2024) fluticasone (FLONASE) 50 mcg/actuation nasal sprayUse 2 Sprays in each nostril once daily. Rinse mouth after use.Disp: 1 EachRfl: 0 Clobetasol Propionate (TEMOVATE) 0.05 % external solutionApply 1 application to affected area two times a day as needed. For the posterior scalp.Disp: 50 mLRfl: 2 tamsulosin (FLOMAX) 0.4 mgTake 1 capsule by mouth daily at bedtime.Disp: 90 capsuleRfl: 0 ketoconazole (NIZORAL) 2 % shampooApply to wet hair, lather for 5-10 minutes, and rinse thoroughly. Use 2-3 times weekly or as needed to control symptoms.Disp: 120 mLRfl: 5 gabapentin (NEURONTIN) 300 mg capsuleTAKE 1 CAPSULE BY MOUTH in evening THEN 2-3 CAPSULES AT bedtime.Disp: 360 capsuleRfl: 0 allopurinol (ZYLOPRIM) 300 mg tabletTake 1 tablet by mouth once daily.Disp: 90 tabletRfl: 3 Calcipotriene 0.005 % solnApply to to scalp twice daily.Disp: 60 mLRfl: 3 Ipratropium Breeding (ATROVENT) 21 mcg (0.03 %) nasal sprayUse 2 Sprays in the nose every 12 hours.Disp: 3.5 mLRfl: 5 levothyroxine (SYNTHROID) 137 mcg tabletTake 1 tablet by mouth once daily. Except none on sundaysDisp: 90 tabletRfl: 4 lisinopril (ZESTRIL) 5 mg tabletTake 1 tablet by mouth once daily.Disp: 90 tabletRfl: 3 rosuvastatin (CRESTOR) 20 mg tabletTake 1 tablet by mouth daily at bedtime.Disp: 90 tabletRfl: 3 omega 9-pej-rwx-fish oil (FISH OIL) 100-160-1,000 mg capTake by mouth once daily.Disp: Rfl: ascorbic acid (SUSAN-C ORAL)Take by mouth once daily.Disp: Rfl: CPAPAutoPAP with humidification set at a [...] Never Smokeless tobacco: Never Vaping Use Vaping status: Never Used Substance Use Topics Alcohol use: Not Currently Drug use: Not Currently Types: Marijuana Objective Physical Exam Vitals and nursing note reviewed. Constitutional: General: He is not in acute distress. Appearance: Normal appe (more content not included)... [facility] 02-02-2024 History of Presen t illness Narrative Images from the original note were not included. Subjective Rash Pertinent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 maximum daily dose. Limit alcohol intake. It is recommended to avoid heavy alcohol intake (more than two standard drinks per day for men and one standard drink for women) after surgery and while taking acetaminophen. Drinking alcohol causes the liver to convert more of the acetaminophen you take into toxic byproducts. Alcohol also acts as a blood thinner and can increase your risk for post-operative bleeding. Continue to take all of your prescribed medication. 11. If you need to have stitches removed, make an appointment to return to the office in 1 week. 12. The stitches will be removed by the NURSE ONLY, unless you have been informed otherwise. 13. If you have had MOHS SURGERY, you will need to come back for a follow-up visit with the nurse or doctor in 6-8 weeks for a wound check. 14. If you had MOHS SURGERY, you should see your referring safety assistant for a routine skin check every 6 months or on a schedule dictated by your safety assistant. IN CASE OF BLEEDING In case of persistent bleeding: Apply firm, steady pressure over the dressing with gauze for 20 minutes. If bleeding persists, please apply firm pressure for another 30 minutes. Tip #1: use a timer to record the time of pressure held Tip #2: do not peek at wound until time is completed- this will disrupt clotting time of vessel Tip #3: you may also use ice, as this may aid in slowing any bleeding. If bleeding persists, please call the office using the numbers below. We will instruct you on how to proceed. SUPPLIES All supplies can be purchased at drug stores without a prescription. You do not have to use exactly the same type of dressing that was applied after surgery. Mild soap and water Cotton-tipped swab (Q-tip) Vaseline, Aquaphor, or a recommended antibiotic ointment. Dressing: Bandages, Telfa or other non-stick pads, gauze, Clemencia, tape, etc. 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 Jessica García REGISTERED NURSE: Lizeth Reyna RN ANTICOAGULANTS: Fish Oil IMPLANTED DEVICES: None ANTIBIOTIC PROPHYLAXIS: Not required TRANSPLANT PATIENT: No PHOTOS: Photos taken VERIFICATION OF PROCEDURE: Procedure to be Performed: Mohs Surgery Patient Verified By: Name and Date of Site(s) Confirmed: Patient confirmed site from image in the EMR. Patient used mirror(s) to identify site(s). Patient verbalized agreement of surgical site(s). Site(s) Marked: Provider marking the site with patient involvement. Relevant documentation, images, implants or special equipment present: Yes SIGN IN COMMUNICATION: Completed Time Out: Team Confirms the Correct Patient, Correct Procedure, Correct Site(s) and Site Marked, Correct Position (if applicable). Time: 11:21 AM Affirmation of Time Out: Yes Sign out Discussion: Completed UNIVERSAL PROTOCOL / SAFETY CHECKLIST Procedure to be Performed: MOHS Sign In: A Moment of CARE was completed. Personnel directly involved with the procedure wore the appropriate PPE (Personal Protective Equipment). Patient/Surrogate Stated/Verified: PATIENT VERIFIED(optional for EMERGENT procedures): Patient name, Date of , Relevant allergies, and The intended procedure Time Out Communication: Intended patient and procedure match the source documents. Consent documented and matches the intended procedure. Sign Out: SIGN OUT (optional for EMERGENT procedures): All specimen containers correctly labeled. Post-procedure follow-up management communicated and Plan of Care Visit completed when applicable. Lizeth Reyna RN LESION #1 Preoperative Diagnosis: BCC Nodular of the nasal dorsum Tumor Type: Primary Path Report Available at Bedside: Inside pathology report # [id number], Date of Biopsy: 11/03/2023, and Biopsy Performed By: 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 CNP Pre-op Size: 0.6 cm - 1 cm, (0.8cm X 0.8cm) Lymphadenopathy: None Indication for Mohs: Anatomic Location where lesion is prone to recur, Type of tumor, and Ill-defined borders Location: Area H: (Mask Areas of the Face - Includes Central Face, Eyelids, Inner/Outer Canthi, Eyebrows, Nose, Chin, Lips, Ears, Periauricular Skin and Druze) Preparation: Chlorhexidine LAYER A The patient was positioned, prepped with alcohol and draped in the usual manner. Anesthesia was obtained with local infiltration. The clinically apparent tumor was then debulked with a curette. A 1-2 mm rim of tissue was marked circumferentially around the defect. The area thus outlined was excised deep to the subcutis. Hemostasis was achieved with electrocautery. The specimen was oriented, subdivided into 2 sections, chromacoded and submitted for horizontal frozen sections. The patient tolerated the procedure well and no complications were noted. Upon review of the horizontal frozen sections for Layer A1- A2, no residual tumor was identified . CLOSURE Rationale for Primary Closure: Given the location and size of the defect and in order to minimize the pain, bleeding, and infection associated with second intention healing, the wound was closed with a primary linear closure. Diagnosis: Surgical defect secondary to Mohs micrographic surgery on a Primary tumor type from the nasal dorsum (location of tumor). Post-op Defect Size: 1.0 x 0.9cm INTERMEDIATE CLOSURE: Requiring skin and subcutaneous fat. The beveled edge of the Mohs defect was surgically removed. The wound edges were undermined in all directions to decrease the tension of the wound and facilitate skin edge apposition. Meticulous hemostasis was achieved with electrocautery. Redundant standing cones were removed to allow the wound to be closed without distortion. The deep tissue were opposed with 5-0 Absorbable Absorbant sutures. The epidermal edges were opposed with 6-0 Non absorbable sutures. The surgical site was cleansed with saline and covered with a bandage as below. The patient tolerated the procedure well and no complications were noted. Final Size: Linear closure - 2.9 cm SCC Staging N/A N/A LOCAL ANESTHETIC: 6cc 1% Lidocaine HCl with Epinephrine 1:100,000 and 3cc 0.5% Bupivacaine HCl ESTIMATED BLOOD LOSS: Less Than Minimal Unless Noted Here. COMPLICATIONS: None, patient tolerated procedure well. TOTAL OPERATIVE TIME: 110 Minutes POST OP MEDS: Tylenol 1000 mg every 8 hours as needed for pain relief POST OP CARE: Pressure Dressing applied consisting of Contact Layer: Petrolatum ointment and Non stick Telfa pad Absorbent Layer: Gauze pad Liquid Adhesive to surrounding skin to adhere dressing. Outer Layer: Hypafix MOHS POST OP INSTRUCTIONS GIVEN WITH VERBAL UNDERSTANDING: Yes PATIENT DISCHARGED TO [facility]ANDER/NAME: FOLLOW UP: Return for suture removal in 7 days The documentation for this note was completed by Lizeth Reyna RN acting as scribe for Jessica García MD. December 14, 2023 12:20 PM. I/primary surgeon/proceduralist performed the procedure with assistance. I/primary surgeon/proceduralist reviewed the specimen(s) and worked as the pathologist. I have seen and examined Lynn Schreiber. I have discussed the case and the management of this patient's care with the Nurse. I also have reviewed and agree with the assessment and plan as stated above and agree with all of its relevant components. I performed the procedures as documented above by the Nurse. I was physically present during the critical portion(s) of this procedure. I agree with the operative note independently gathered by the clinical direct support specialist and the remaining scribed note accurately describes my personal service to the patient. I/primary surgeon/proceduralist reviewed the specimen(s) and worked as the pathologist. Jessica García MD December 20, 2023 documented in this encounter [facility] 11-10-2023 Telephone encounter Note [employer] faxed request for signed OV notations dated 06/26/2023, 04/06/2020, 10/15/2019 printed for pickup. Shanta Martel LPN [facility] 11-10-2023 Miscellaneous Notes [employer] faxed request for signed OV notations dated 06/26/2023, 04/06/2020, 10/15/2019 printed for pickup. Shanta Martel LPN documented in this encounter [facility] 11-07-2023 Telephone encounter Note Patient aware of diagnosis and treatment per provider notes. PROCEDURE & TIME REQUIRED Mohs Micrographic surgery: AUC: 7 Mohs surgery preoperative scoring for BCC and SCC (for scheduling): Lesion 1 1. Where is the lesion located? Nose, Ear, Eyelids, or Lips (2 point) A. Skin, nasal dorsum, shave biopsy: - Basal cell carcinoma, nodular type. 2. Is the lesion a recurrent tumor?Unknown (0 points) 3. Does the tumor have an aggressive histologic subtype? (micronodular or infiltrative BCC, moderate or poorly differentiated SCC) No (0 points) 4. Lesion size 0.3 cm <1 cm (0 points) Total Points for Lesion: 2 If 2 lesions are close together and done on the same day add 1 point. Total points: 2 If score is 3 or higher, schedule in AM Mohs slots only If score is 5 or higher, please hold 2 Mohs surgery slots For every 4 additional points hold an additional slot If the lesion has 6 or greater number of pieces please schedule at location where 2 histotechs are located. Please include total points in the appointment visit notes. Derm time required: one slot and AM Approved by: Savanah Thorne RN Schedule with: First Available Location: Pt preference Photos in Get Images [facility] 11-07-2023 Miscellaneous Notes Patient aware of diagnosis and treatment per provider notes. PROCEDURE & TIME REQUIRED Mohs Micrographic surgery: AUC: 7 Mohs surgery preoperative scoring for BCC and SCC (for scheduling): Lesion 1 1. Where is the lesion located? Nose, Ear, Eyelids, or Lips (2 point) A. Skin, nasal dorsum, shave biopsy: - Basal cell carcinoma, nodular type. 2. Is the lesion a recurrent tumor?Unknown (0 points) 3. Does the tumor have an aggressive histologic subtype? (micronodular or infiltrative BCC, moderate or poorly differentiated SCC) No (0 points) 4. Lesion size 0.3 cm <1 cm (0 points) Total Points for Lesion: 2 If 2 lesions are close together and done on the same day add 1 point. Total points: 2 If score is 3 or higher, schedule in AM Mohs slots only If score is 5 or higher, please hold 2 Mohs surgery slots For every 4 additional points hold an additional slot If the lesion has 6 or greater number of pieces please schedule at location where 2 histotechs are located. Please include total points in the appointment visit notes. Derm time required: one slot and AM Approved by: Savanah Thorne RN Schedule with: First Available Location: Pt preference Photos in Get Images FINAL DIAGNOSIS A. Skin, nasal dorsum, shave biopsy: - Basal cell carcinoma, nodular type. Call placed to home number. Spoke to Edward and . Discussed Basal Cell Carcinoma. Recommend Mohs Micrographic Surgery. Patient is agreeable. Prefers [facility] and Dr. García. Order placed. Recommend every 6 month skin exams. 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 APRN.CNP November 07, 2023 10:26 AM documented in this encounter [facility] 11-07-2023 Telephone encounter Note FINAL DIAGNOSIS A. Skin, nasal dorsum, shave biopsy: - Basal cell carcinoma, nodular type. Call placed to home number. Spoke to Edward and . Discussed Basal Cell Carcinoma. Recommend Mohs Micrographic Surgery. Patient is agreeable. Prefers [facility] and Dr. García. Order placed. Recommend every 6 month skin exams. 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 APRN.CNP November 07, 2023 10:26 AM [facility] 11-03-2023 Instructions Sandra Gaxiola LPN - 11/03/2023 9:48 AM EDT CARE OF BIOPSY SITE 1. Wash your hands with soap and water. 2. Cleanse the biopsy site with antibacterial soap for 7-10 days 3. Thoroughly dry the area and apply a small amount of Vaseline or Aquaphor to keep area greasy at all times (this prevents a scab from forming). 4. PLEASE DO NOT use polysporin, Bacitracin, triple antibiotic or similar ointments. 5. Place a small dressing or band-aid over the wound until the wound is healed. (Studies show that wounds heal better when covered with ointment and a dressing). If you have any questions or concerns, please contact the office at [phone] or send [employer] message documented in this encounter [facility] 11-03-2023 History of Presen t illness Narrative SKIN EXAM ESTABLISHED LAST OFFICE VISIT: 07/14/2023 with Alda Sky APRN.CROSS ENTERPRISE INTEGRATOR Here with Patricia CC: This patient is a 68 year old male. Patient presents with: LESION, SKIN HPI: Location: nose Appearance (size, shape, color): red Duration: 1 month Symptoms (growing, itching, bleeding, tender): tender Treatments: none -Personal history of skin cancer: Yes 2012 Basal Cell Carcinoma: left side of nose -History of blistering sunburns:Yes -Family history of skin cancer: No SOC: Social History Tobacco Use Smoking status: Never Smokeless tobacco: Never Vaping Use Vaping Use: Never used Substance Use Topics Alcohol use: Not Currently Drug use: Not Currently Types: Marijuana MEDS: Current outpatient prescriptions: Current Outpatient Medications on File Prior to Visit Medication Sig tamsulosin (FLOMAX) 0.4 mg Take 1 capsule by mouth daily at bedtime. ketoconazole (NIZORAL) 2 % shampoo Apply to wet hair, lather for 5-10 minutes, and rinse thoroughly. Use 2-3 times weekly or as needed to control symptoms. gabapentin (NEURONTIN) 300 mg capsule TAKE 1 CAPSULE BY MOUTH in evening THEN 2-3 CAPSULES AT bedtime. allopurinol (ZYLOPRIM) 300 mg tablet Take 1 tablet by mouth once daily. Calcipotriene 0.005 % soln Apply to to scalp twice daily. Ipratropium Breeding (ATROVENT) 21 mcg (0.03 %) nasal spray Use 2 Sprays in the nose every 12 hours. levothyroxine (SYNTHROID) 137 mcg tablet Take 1 tablet by mouth once daily. Except none on sundays lisinopril (ZESTRIL) 5 mg tablet Take 1 tablet by mouth once daily. rosuvastatin (CRESTOR) 20 mg tablet Take 1 tablet by mouth daily at bedtime. triamcinolone acetonide (KENALOG) 0.1 % cream Apply to affected areas twice daily as needed for irritation following photodynamic therapy. Fluocinolone-Shower Cap 0.01 % oil Apply to affected area of scalp nightly and wash out in the morning. omega 3-gto-qfn-fish oil (FISH OIL) 100-160-1,000 mg cap Take by mouth once daily. ascorbic acid (SUSAN-C ORAL) Take by mouth once daily. CPAP AutoPAP with humidification set at a range of 5-16 cmH2O. Lifetime supplies. Please fit with dreamwear under nose FFM. Please provide us download after 4 weeks of use. Cholecalciferol, Vitamin D3, 50 mcg (2,000 unit) cap Take 1 capsule by mouth once daily. Current Facility-Administered Medications on File Prior to Visit Medication Aminolevulinic Acid HCl 20 % soln 2 Each perflutren lipid microspheres 1.3 mL in NaCl (PF) 0.9% 10 mL injection (DEFINITY) sodium chloride 0.9 % (flush) 10 mL (BD POSIFLUSH) ALLERGY: ALLERGIES No Known Allergies REVIEW OF SYSTEMS: Patient feels well and denies any recent fevers, chills, or nightsweats. PHYSICAL EXAM: The patient is a pleasant male in no distress. Patient appears healthy, well developed, well nourished and in otherwise good health. Alert and oriented x 3. A skin exam was done of the face and ears. Barrera Skin Type: III IMPRESSION: A) nasal dorsum 0.3 cm pink pearly papule with central ulceration Brown stuck on plaques throughout face A/P: (D49.2) Neoplasm of unspecified behavior of bone, soft tissue, and skin (primary encounter diagnosis) Shave biopsy of lesion to establish and confirm diagnosis: UNIVERSAL PROTOCOL / SAFETY CHECKLIST Procedure to be Performed: shave biopsy Sign In: A Moment of CARE was completed. Personnel directly involved with the procedure wore the appropriate PPE (Personal Protective Equipment). No special equipment needed. Patient/Surrogate Stated/Verified: PATIENT VERIFIED(optional for EMERGENT procedures): Patient name, Date of , Relevant allergies, and The intended procedure Time Out Communication: Intended patient and procedure match the source documents. Consent documented and matches the intended procedure. No relevant labs, photos, and/or imaging studies were applicable for review. Correct side/site marked and visible. No medications required for procedure. No fire risk assessment and interventions applicable. No implant(s) inserted. Sign Out: SIGN OUT (optional for EMERGENT procedures): All specimen containers correctly labeled. No instruments, equipment or retained foreign bodies applicable. 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 APRN.CROSS ENTERPRISE INTEGRATOR Photo taken: Yes Risks, benefits, alternatives and personnel required for shave biopsy reviewed with patient. Patient and provider agree as to site(s) to be biopsied. Patient verbalizes understanding and wishes to proceed. Site(s) prepped with alcohol and anesthetized with 1% lidocaine with epinephrine. Shave biopsy of lesion(s) performed to the level of the dermis/epidermis The following was sent for histologic evaluation: LESION #1 R/O: BCC LOC OF LESION: A) nasal dorsum SIZE: 0.3 cm EBL: scant Hemostasis with aluminum chloride and direct pressure, and a bandage is applied Written and verbal wound care instructions provided to patient, understanding verbalized. (L82.1) Seborrheic Keratosis - Discussed etiology and educated. - Reassured benign nature. (Z85.828) Hx of nonmelanoma skin cancer - Continue monthly self exams - Recommend every 6-12 month skin exams - Contact office with any suspicious lesions in between follow up - Discussed importance of SPF 30 or higher daily I counseled the patient after the exam about the ABCDEs of nevus evaluation, pre-cancer,skin cancer surveillance with monthly self skin exams. Sunscreen / sunblock protection reviewed. OK to MyChart results Prefers [facility] for Mohs Micrographic Surgery (Dr. García) The patient is seen and examined by 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 CNP and the following reflects his/her service. Scribed by Sandra Gaxiola LPN I agree with the Chief Complaint, ROS, and Past Histories independently gathered by the clinical direct support specialist and the remaining scribed note accurately describes my personal service to the patient. 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 APRN.CNP November 03, 2023 9:41 AM Medical Decision Making: Problems: Low: Stable chronic illness Moderate: New problem with uncertain prognosis Risk: Low: Low risk from testing/treatment Medical Decision Making Level: 3 - Low documented in this encounter [facility] 10-18-2023 Telephone encounter Note ENIO 07/06/22 [facility] 10-18-2023 Miscellaneous Notes ENIO 07/06/22 documented in this encounter [facility] 10-16-2023 Consult note Note Date/Time October 16, 2023 2:46p m [facility] Medical Records Department [address] [place] [address] Counseling Note - Pharmacy 10/16/23 1445 MR#: [id number] Acct: [id number] Name: ABDOULLYNN ADALBERTO Rep #:[id number] : 1955 68 From: Gabriela Martinez PCP: Dr. Anthony Solano MD Status:ADM I NO Y Location: [place] [address] Pharmacy [facility] has performed discharge medication reconciliation and counseling for this patient. 1. CIPROFLOXACIN 500MG PO BID X 5 DAYS The patient's discharge medication list was reviewed for discrepancies and discrepancies were resolved. The patient was counseled on the following discharge medications and changes in medications for homegoing were reviewed. The Reason for Use, instructions for use, and potential side effects were reviewed for all new medications. The patient's questions regarding all of their medications were answered. The patient was able to verbally demonstrate an understanding of their dischargemedications. Medications at Discharge Home Medications allopurinol 300 mg tablet 300 mg PO DAILY 10/14/23 gabapentin 300 mg capsule 300 mg PO QHS 10/14/23 hydrocodone-acetaminophen 5-325mg 5mg-325mg 1 tab PO Q6H PRN PRN Pain 3 days #10TABLETS 10/14/23 ibuprofen 400 mg tablet 400 mg PO Q8H PRN pain #14 tabs 10/14/23 levothyroxine 137 mcg tablet 137 mcg PO MOTUWETHFRSA 10/14/23 lisinopril 5 mg tablet 5 mg PO DAILY 10/14/23 ondansetron 4 mg disintegrating tablet 4 mg PO Q8H PRN PRN Nausea #10 tabs 10/14/23 rosuvastatin 20 mg tablet 20 mg PO QHS 10/14/23 tamsulosin 0.4 mg capsule (Flomax) 0.4 mg PO DAILY PRN urination 10/14/23 ciprofloxacin HCl 500 mg tablet (Cipro) 500 mg PO BID #10 tabs 10/15/23 10/16/23 1446 <Electronically signed by Gabriela Martinez> Date _ Gabriela Martinez Cosigner Signature (if applicable): Date __ CC: ~ Signed [facility] Work Phone: 1(883) 165-482705-13-[address] [facility] 10-15-2023 Discharge summary Author David Weeks [facility] October 15, 2023 5:22pm Note Date/Time October 15, 2023 5:22p [facility] Medical Records Department [address] [place] [address] Instructions for Home/Discharge Instructions 10/15/23 1721 MR#: [id number] Acct: [id number] Name: LYNN SCHREIBERN Rep #:[id number] : 1955 68 From: David Weeks MD PCP: Dr. Anthony Solano MD Status:ADM I NO Discharge Instructions Diet Discharge Diet: No restrictions Activity Discharge Activity: Return to Normal Activity and May Not Drive (while taking narcotic pain medications.) Dressing / Incision Call your doctor if you observe: Fever of 101 or Higher Follow Up Care Please Follow Up With: David Weeks MD When: Call [phone] for an appointment. Test Results: Test results from this visit will be discussed in further detail at your follow- up appointment, if applicable. Discharge Plan Admission Admit Date/Time: 10/15/23 05:56 Primary Reason for Your Visit: Kidney stone Attending Provider: David Weeks Primary Care Provider: Anthony Solano Discharge Orders/Prescriptions Prescriptions: New ciprofloxacin HCl [Cipro] 500 mg tablet 500 mg PO BID Qty: 10 0RF Continued levothyroxine 137 mcg tablet 137 mcg PO MOTUWETHFRSA gabapentin 300 mg capsule 300 mg PO QHS lisinopril 5 mg tablet 5 mg PO DAILY rosuvastatin 20 mg tablet 20 mg PO QHS tamsulosin [Flomax] 0.4 mg capsule 0.4 mg PO DAILY PRN (Reason: urination) allopurinol 300 mg tablet 300 mg PO DAILY hydrocodone-acetaminophen 5-325 mg tablet 1 tab PO Q6H PRN PRN (Reason: Pain) 3 Days Qty: 10 0RF ibuprofen 400 mg tablet 400 mg PO Q8H PRN (Reason: pain) Qty: 14 0RF ondansetron 4 mg tablet,disintegrating 4 mg PO Q8H PRN PRN (Reason: Nausea) Qty: 10 0RF Referrals / Follow Up: David Weeks MD [Med Staff - Active Staff] - Anthony Solano MD [Primary Care Provider] - Disposition Disposition (needs filled in before D/C Order can be placed): Home, Self Care 10/15/23 1722<Electronically signed by David Weeks MD>David Weeks MD CC: Dr. Anthony Solano MD ~ Signed [facility] Work Phone: 1(810) 563-783805-12-2024 History and physical note Author David Desi [facility] October 15, 2023 5:17pm Note Date/Time October 15, 2023 5:17p [facility] Medical Records Department [address] [place] [address] History & Physical Exam 10/15/23 1716 MR#: [id number] Acct: [id number] Name: LYNN SCHREIBER ADALBERTO Rep #:[id number] : 1955 68 From: David Weeks MD PCP: Dr. Anthony Solano MD Status:ADM I NO Location: [facility] [place] [id number] HPI - General General Date of Admission: 10/14/23 Date of Service: 10/14/23 Chief Complaint: Left proximal ureteral calculi HPI Narrative LYNN SCHREIBER, is a 68 M who presents to the hospital and severe left renal flank pain he was admitted for severe pain in the left side. CT scan reviewed he has got about 6 to 5 mm stone in the proximal left ureter. Will put on Flomax hydration strain all urine this evening and passed a stone by otherwise if he cannot plan for intervention tomorrow with cystoscopy left ureteroscopy laser lithotripsy of stone and stent placement [facility] Medical History Basal cell carcinoma Gout HTN (hypertension) Hyperlipidemia Kidney stone Pyelonephritis Restless leg syndrome Thyroid cancer Vertigo Home Medications allopurinol 300 mg tablet 300 mg PO DAILY 10/14/23 [History Last Taken Unknown] gabapentin 300 mg capsule 300 mg PO QHS 10/14/23 [History Last Taken Unknown] hydrocodone-acetaminophen 5-325mg 5mg-325mg 1 tab PO Q6H PRN PRN Pain 3 days #10TABLETS 10/14/23 [Rx Last Taken Unknown] ibuprofen 400 mg tablet 400 mg PO Q8H PRN pain #14 tabs 10/14/23 [Rx Last Taken Unknown] levothyroxine 137 mcg tablet 137 mcg PO MOTUWETHFRSA 10/14/23 [History Last Taken Unknown] lisinopril 5 mg tablet 5 mg PO DAILY 10/14/23 [History Last Taken Unknown] ondansetron 4 mg disintegrating tablet 4 mg PO Q8H PRN PRN Nausea #10 tabs 10/14/23 [Rx Last Taken Unknown] rosuvastatin 20 mg tablet 20 mg PO QHS 10/14/23 [History Last Taken Unknown] tamsulosin 0.4 mg capsule (Flomax) 0.4 mg PO DAILY PRN urination 10/14/23 [History Last Taken Unknown] Allergy/AdvReac Type Severity Reaction Status Date / Time No Known Allergies Allergy Verified 10/14/23 22:42 Surgical History History of thyroid surgery Social History Smoking Status: Never smoker ROS Constitutional Constitutional: Denies chills, fever(s) or malaise Eyes Eyes: Denies blurry vision or change in vision ENT HEENT: Reports none Cardiovascular Cardiovascular: Denies chest pain or palpitations Respiratory/Chest Respiratory/Chest: Denies cough or shortness of breath with exertion Gastrointestinal Gastrointestinal: Denies abdominal pain, constipation or diarrhea Musculoskeletal Musculoskeletal: Denies back pain, joint stiffness or joint swelling Integumentary Integumentary: Denies dry skin, jaundice, lesions or rash Neurologic Neurologic: Denies confusion, syncope or weakness Psychiatric Psychiatric: Reports none; Denies anxiety or depression Endocrine Endocrinology: Denies excessive sweating, fatigue or flushing Hematologic/Lymphatic Hematologic/Lymphatic: Denies anemia, easy bleeding or easy bruising Vital Signs Vital Signs Vital Signs: 10/14/23 22:41 10/15/23 00:41 10/15/23 02:00 Temperature 97.6 F L Temperature Source Temporal Pulse Rate 72 60 66 Respiratory Rate 17 18 16 Respiratory Effort Respiratory Depth Respiratory Pattern Blood Pressure 161/101 H 109/63 148/86 H Blood Pressure Mean 121 78 106 Blood Pressure Source Blood Pressure Position Blood Pressure Location Pulse Ox 98 97 95 Oxygen Delivery Method Room Air Room Air Room Air 10/15/23 04:00 10/15/23 05:12 10/15/23 06:00 Temperature 98.4 F 98.3 F Temperature Source Oral Pulse Rate 64 61 60 Respiratory Rate 16 16 18 Respiratory Effort Respiratory Depth Respiratory Pattern Blood Pressure 163/84 H 139/80 H 132/67 H Blood Pressure Mean 110 99 88 Blood Pressure Source Monitor Blood Pressure Position Semi-Fowlers Blood Pressure Location Right Arm Pulse Ox 99 96 98 Oxygen Delivery Method Room Air Room Air 10/15/23 05:47 10/15/23 07:54 10/15/23 14:38 Temperature 97.9 F 98.1 F Temperature Source Oral Oral Pulse Rate 62 72 Respiratory Rate 15 16 18 Respiratory Effort Normal Non-Labored Respiratory Depth Normal Respiratory Pattern Normal Blood Pressure 125/71 H 151/84 H Blood Pressure Mean 89 106 Blood Pressure Source Monitor Monitor Blood Pressure Position Supine Semi-Fowlers Blood Pressure Location Right Arm Right Arm Pulse Ox 98 94 Oxygen Delivery Method Room Air Room Air Room Air Weight Weight: 124.285 kg Body Mass Index (BMI) 38.2 Physical Exam Const alert and oriented x3 General Appearance: cooperative HEENT normocephalic, head/scalp atraumatic, EAC's normal and TM's normal bilaterally Eyes PERRL and EOMs intact bilaterally Pupil: sluggish Neck no lymphadenopathy, supple and no JVD General: trachea midline Lymph Lymphatic: no lymphadenopathy noted, lymphedema and lymphadenopathy Resp normal respiratory effort, normal air movement and clear to auscultation bilaterally Cardio regular rate, regular rhythm and peripheral pulses 2+ throughout GI soft to palpation, non-tender and non-distended Extremity normal capillary refill and no clubbing, cyanosis or edema General Extremity: no tenderness to palpation of joints or extremities Skin no rashes or lesions noted General Skin Exam: turgor normal Lesions: no lesions Rashes: no rashes Neuro CN's II-XII intact bilaterally Speech: speech normal Motor Exam: strength 5/5 throughout; Negative for general weakness Psych thought process normal, cooperative and affect normal Appearance: appropriate Results Medical Records Data Attestation: I reviewed the patient's medical records Lab / Micro Data 10/15/23 00:40 10/15/23 00:40 Labs: Laboratory Results - last 24 hr 10/15/23 00:40: WBC 7.8, RBC 3.92 L, Hgb 11.5 L, Hct 35.2 L, MCV 89.8, MCH 29.3,MCHC 32.7, RDW Std Deviation 45.6 H, RDW Coeff of Yoselyn 13.8, Plt Count 199, MPV 10.1, Immature Gran % (Auto) 0.100, Neut % (Auto) 76.7 H, Lymph % (Auto) 12.1 L,Latimer % (Auto) 6.3, Eos % (Auto) 4.3, Baso % (Auto) 0.5, Absolute Neuts (auto) 5.9, Absolute Lymphs (auto) 0.94, Nucleated RBC % 0, Sodium 139, Potassium 4.5, Chloride 109 H, Carbon Dioxide 26.0, Anion Gap 4 L, BUN 22 H, Creatinine 2.10 H,Estim Creat Clear Calc 43.87, Est GFR (MDRD) Af Amer 40 L, Est GFR (MDRD) Non-Af33 L, BUN/Creatinine Ratio 10.5, Glucose 107 H, Calcium 9.0 10/15/23 01:45: Urine Color Yellow, Urine Clarity Clear, Urine pH 5.0, Ur Specific [place] 1.020, Urine Protein Negative, Urine Glucose (UA) Normal, Urine Ketones Negative, Urine Occult Blood Negative, Urine Nitrite Negative, Urine Bilirubin Negative, Urine Urobilinogen Normal, Ur Leukocyte Esterase Negative, Urine RBC 0 SEEN, Urine WBC 0 SEEN, Ur Squamous Epith Cells 0 SEEN, Urine Bacteria 0 SEEN, Urine Mucus [address] scan reviewed shows stone in the proximal left ureter Assessment & Plan Assessment/Plan (1) Acute left flank pain: (2) Ureterolithiasis: PLAN: Plan for cystoscopy left ureteroscopy laser lithotripsy of stone and stentplacement 10/15/23 1717 <Electronically signed by David Weeks MD> Cosigner Signature (if applicable): CC: Dr. David Weeks MD; Dr. Anthony Solano MD~ Signed [facility] Work Phone: 1(564) 562-144805-12-2024 [facility] Medical Records Department [address] [place] [id number] History Physical Exam 10/15/23 171 MR#: [id number] Acct: [id number] Name: LYNN SCHREIBER ADALBERTO Rep #: [id number] : 1955 68 From: David Weeks MD PCP: Dr. Anthony Solano MD Status:ADM EDMOND Location: [facility] [place] [id number] HPI - General General Date of Admission: 10/14/23 Date of Service: 10/14/23 Chief Complaint: Left proximal ureteral calculi HPI Narrative LYNN SCHREIBER, is a 68 M who presents to the hospital and severe left renal flank pain he was admitted for severe pain in the left side. CT scan reviewed he has got about 6 to 5 mm stone in the proximal left ureter. Will put on Flomax hydration strain all urine this evening and passed a stone by otherwise if he cannot plan for intervention tomorrow with cystoscopy left ureteroscopy laser lithotripsy of stone and stent placement [facility] Medical History Basal cell carcinoma Gout HTN (hypertension) Hyperlipidemia Kidney stone Pyelonephritis Restless leg syndrome Thyroid cancer Vertigo Home Medications allopurinol 300 mg tablet 300 mg PO DAILY 10/14/23 [History Last Taken Unknown] gabapentin 300 mg capsule 300 mg PO QHS 10/14/23 [History Last Taken Unknown] hydrocodone-acetaminophen 5-325mg 5mg-325mg 1 tab PO Q6H PRN PRN Pain 3 days #10 TABLETS 10/14/23 [Rx Last Taken Unknown] ibuprofen 400 mg tablet 400 mg PO Q8H PRN pain #14 tabs 10/14/23 [Rx Last Taken Unknown] levothyroxine 137 mcg tablet 137 mcg PO MOTUWETHFRSA 10/14/23 [History Last Taken Unknown] lisinopril 5 mg tablet 5 mg PO DAILY 10/14/23 [History Last Taken Unknown] ondansetron 4 mg disintegrating tablet 4 mg PO Q8H PRN PRN Nausea #10 tabs 10/14/23 [Rx Last Taken Unknown] rosuvastatin 20 mg tablet 20 mg PO QHS 10/14/23 [History Last Taken Unknown] tamsulosin 0.4 mg capsule (Flomax) 0.4 mg PO DAILY PRN urination 10/14/23 [History Last Taken Unknown] Allergy/AdvReac Type Severity Reaction Status Date / Time No Known Allergies Allergy Verified 10/14/23 22:42 Surgical History History of thyroid surgery Social History Smoking Status: Never smoker ROS Constitutional Constitutional: Denies chills, fever(s) or malaise Eyes Eyes: Denies blurry vision or change in vision ENT HEENT: Reports none Cardiovascular Cardiovascular: Denies chest pain or palpitations Respiratory/Chest Respiratory/Chest: Denies cough or shortness of breath with exertion Gastrointestinal Gastrointestinal: Denies abdominal pain, constipation or diarrhea Musculoskeletal Musculoskeletal: Denies back pain, joint stiffness or joint swelling Integumentary Integumentary: Denies dry skin, jaundice, lesions or rash Neurologic Neurologic: Denies confusion, syncope or weakness Psychiatric Psychiatric: Reports none; Denies anxiety or depression Endocrine Endocrinology: Denies excessive sweating, fatigue or flushing Hematologic/Lymphatic Hematologic/Lymphatic: Denies anemia, easy bleeding or easy bruising Vital Signs Vital Signs Vital Signs: 10/14/23 22:41 10/15/23 00:41 10/15/23 02:00 Temperature 97.6 F L Temperature Source Temporal Pulse Rate 72 60 66 Respiratory Rate 17 18 16 Respiratory Effort Respiratory Depth Respiratory Pattern Blood Pressure 161/101 H 109/63 148/86 H Blood Pressure Mean 121 78 106 Blood Pressure Source Blood Pressure Position Blood Pressure Location Pulse Ox 98 97 95 Oxygen Delivery Method Room Air Room Air Room Air 10/15/23 04:00 10/15/23 05:12 10/15/23 06:00 Temperature 98.4 F 98.3 F Temperature Source Oral Pulse Rate 64 61 60 Respiratory Rate 16 16 18 Respiratory Effort Respiratory Depth Respiratory Pattern Blood Pressure 163/84 H 139/80 H 132/67 H Blood Pressure Mean 110 99 88 Blood Pressure Source Monitor Blood Pressure Position Semi-Fowlers Blood Pressure Location Right Arm Pulse Ox 99 96 98 Oxygen Delivery Method Room Air Room Air 10/15/23 05:47 10/15/23 07:54 10/15/23 14:38 Temperature 97.9 F 98.1 F Temperature Source Oral Oral Pulse Rate 62 72 Respiratory Rate 15 16 18 Respiratory Effort Normal Non-Labored Respiratory Depth Normal Respiratory Pattern Normal Blood Pressure 125/71 H 151/84 H Blood Pressure Mean 89 106 Blood Pressure Source Monitor Monitor Blood Pressure Position Supine Semi-Fowlers Blood Pressure Location Right Arm Right Arm Pulse Ox 98 94 Oxygen Delivery Method Room Air Room Air Room Air Weight Weight: 124.285 kg Body Mass Index (BMI) 38.2 Physical Exam Const alert and oriented x3 (more content not included)...[facility] 10-15-2023 Discharge summary Author Heron Rodriguez [facility] October 15, 2023 7:37am Note Date/Time October 14, 2023 11:03 pm [facility] Medical Records Department [address] [place] [address] Emergency Department Summary 10/14/23 MR#: [id number] Acct: [id number] Name: LYNN SCHREIBER ADALBERTO Rep #:[id number] : 1955 68 From: Heron Rudd PCP: Dr. Anthony Solano MD Status:ADM I NO Location: [place] [address] HPI HPI - GI History of Present Illness Chief Complaint: Abd Pain Informant: patient Abdominal Pain/Flank Pain Onset: Yesterday Context: Sudden Onset Timing: Continuous Quality: Aching Location: Left Flank Worsened by: - (Breathing) Relieved by: Nothing Nausea/Vomiting/Emesis GI Symptom: Positive for Nausea; Negative for Vomiting Diarrhea/Melena/Hematochezia GI Symptom: Negative for Diarrhea, Melena or Hematochezia Associated Symptoms Associated Symptoms: Positive for Urgency; Negative for Dysuria, Frequency or Hematuria Narrative Narrative: Patient presents with left flank pain that began yesterday. Patient was seen here earlier this morning for this. Patient was diagnosed with a 6 mm left proximal ureteral calculus. Patient stated he wanted to go home at that time. Patient was given prescriptions for Hosmer, Zofran, and Flomax. Patient states the Hosmer has not been helping. Patient states that the Zofran has been helpingwith nausea. Patient describes his pain as aching. Patient states it is over the left flank area. Patient states it is worse with deep breathing. Patient admits to some nausea but denies any vomiting. Patient denies any diarrhea, melena, or hematochezia. Patient admits to some urinary urgency but denies any dysuria, frequency, or hematuria. [facility] Medical History (Updated 10/15/23 @ 04:[address] Heron Rodriguez, DO) Basal cell carcinoma Gout HTN (hypertension) Hyperlipidemia Kidney stone Pyelonephritis Restless leg syndrome Thyroid cancer Vertigo Home Medications allopurinol 300 mg tablet 300 mg PO DAILY 10/14/23 [History Last Taken Unknown] gabapentin 300 mg capsule 300 mg PO QHS 10/14/23 [History Last Taken Unknown] hydrocodone-acetaminophen 5-325mg 5mg-325mg 1 tab PO Q6H PRN PRN Pain 3 days #10TABLETS 10/14/23 [Rx Last Taken Unknown] ibuprofen 400 mg tablet 400 mg PO Q8H PRN pain #14 tabs 10/14/23 [Rx Last Taken Unknown] levothyroxine 137 mcg tablet 137 mcg PO MOTUWETHFRSA 10/14/23 [History Last Taken Unknown] lisinopril 5 mg tablet 5 mg PO DAILY 10/14/23 [History Last Taken Unknown] ondansetron 4 mg disintegrating tablet 4 mg PO Q8H PRN PRN Nausea #10 tabs 10/14/23 [Rx Last Taken Unknown] rosuvastatin 20 mg tablet 20 mg PO QHS 10/14/23 [History Last Taken Unknown] tamsulosin 0.4 mg capsule (Flomax) 0.4 mg PO DAILY PRN urination 10/14/23 [History Last Taken Unknown] Allergy/AdvReac Type Severity Reaction Status Date / Time No Known Allergies Allergy Verified 10/14/23 22:42 Surgical History History of thyroid surgery Social History Smoking Status: Never smoker ROS ROS ED Constitutional Constitutional ED: Denies chills or fever(s) Eyes Eyes: Denies blurry vision or change in vision ENT ENT ED: Denies rhinorrhea or sore throat Cardiovascular Cardiovascular: Denies chest pain or palpitations Respiratory/Chest Respiratory/Chest: Denies cough or dyspnea Gastrointestinal Gastrointestinal: Reports abdominal pain; Denies nausea or vomiting Genitourinary Genitourinary ED: Denies dysuria or hematuria Musculoskeletal Musculoskeletal: Reports back pain; Denies neck pain Integumentary Denies abscess or rash Neurologic Neurologic: Denies headache(s) or weakness Allergic/Immunologic Allergic/Immunologic ED: Denies mouth swelling or urticaria EXAM Physical Exam Const Vital Signs: 10/14/23 22:41 10/15/23 00:41 10/15/23 02:00 Temperature 97.6 F L Temperature Source Temporal Pulse Rate 72 60 66 Respiratory Rate 17 18 16 Blood Pressure 161/101 H 109/63 148/86 H Blood Pressure Mean 121 78 106 Pulse Ox 98 97 95 Oxygen Delivery Method Room Air Room Air Room Air 10/15/23 04:00 Temperature Temperature Source Pulse Rate 64 Respiratory Rate 16 Blood Pressure 163/84 H Blood Pressure Mean 110 Pulse Ox 99 Oxygen Delivery Method Room Air Positive well nourished and well developed General Appearance ED: well developed and NAD HEENT Reports moist mucous membranes Neck supple and no JVD Resp normal respiratory effort and clear to auscultation bilaterally Cardio regular rate and regular rhythm GI non-distended Palpation: soft and tender LLQ and LUQ; Negative for guarding or rebound tenderness present Back/Spine General Back: CVA tenderness left Extremity full ROM Neuro CN's II-XII intact bilaterally, moves all extremities and no sensory deficits noted Sensorium / Orientation: alert Motor Exam: strength 5/5 throughout MDM MDM MDM Narrative Medical decision making narrative: Differential diagnosis includes ureteral calculus, acute kidney injury, electrolyte abnormality, and infection. Patient had a CT scan earlier today. This will not need to be repeated. CBC will be obtained to assess for leukocytosis and anemia. Basic metabolic profile will be obtained to assess forelectrolyte abnormality and renal function. Urinalysis will be obtained to assess for urinary tract infection or hematuria. Lab Data Attestation: I reviewed the patient's lab results. Lab results narrative: CBC was reviewed. There is a mild anemia with a hemoglobin of 11.5 and hematocrit 35.2. Basic metabolic profile was reviewed. BUN was elevated at 22 and creatinine was elevated at 2.1. These are increased from previous results. Urinalysis was reviewed. There is no evidence of urinary tract infection or hematuria. Labs: Laboratory Results - last 24 hr 10/15/23 10/15/23 00:40 01:45 WBC 7.8 RBC 3.92 L Hgb 11.5 L Hct 35.2 L MCV 89.8 MCH 29.3 MCHC 32.7 RDW Std Deviation 45.6 H RDW Coeff of Yoselyn 13.8 Plt Count 199 MPV 10.1 Immature Gran % (Auto) 0.100 Neut % (Auto) 76.7 H Lymph % (Auto) 12.1 L [place] % (Auto) 6.3 Eos % (Auto) 4.3 Baso % (Auto) 0.5 Absolute Neuts (auto) 5.9 Absolute Lymphs (auto) 0.94 Nucleated RBC % 0 Sodium 139 Potassium 4.5 Chloride 109 H Carbon Dioxide 26.0 Anion Gap 4 L BUN 22 H Creatinine 2.10 H Estim Creat Clear Calc 43.87 Est GFR (MDRD) Af Amer 40 L Est GFR (MDRD) Non-Af 33 L BUN/Creatinine Ratio 10.5 Glucose 107 H Calcium 9.0 Urine Color Yellow Urine Clarity Clear Urine pH 5.0 Ur Specific [place] 1.020 Urine Protein Negative Urine Glucose (UA) Normal Urine Ketones Negative Urine Occult Blood Negative Urine Nitrite Negative Urine Bilirubin Negative Urine Urobilinogen Normal Ur Leukocyte Esterase Negative Urine RBC 0 SEEN Urine WBC 0 SEEN Ur Squamous Epith Cells 0 SEEN Urine Bacteria 0 SEEN Urine Mucus 0 SEEN Management Discussion w/another healthcare provider: Plant Attendant Or Assistant Operator (Dr. Weeks) Treatment and Re-Evaluation :: Patient was given IV fluids, morphine, and Zofran. Patient states morphine improved his pain but still is present. Patient was given a repeat dose of morphine. Patient was advised of his findings. With the increase of his creatinine and having a 6 mm proximal stone, I recommended admission to the hospital. Patient states he would prefer to stay here at [facility]. Case was discussed with Dr. Weeks. He will admit the patient for observation. Patient and family understood and were agreeable with the plan. All questions were answered. Discharge Plan Triage Chief Complaint: Abd Pain ED Provider: Heron Rodriguez Dx/Rx/DC Orders Clinical Impression: Acute left flank pain, Ureterolithiasis Prescriptions: No Action levothyroxine 137 mcg tablet 137 mcg PO MOTUWETHFRSA gabapentin 300 mg capsule 300 mg PO QHS lisinopril 5 mg tablet 5 mg PO DAILY rosuvastatin 20 mg tablet 20 mg PO QHS tamsulosin [Flomax] 0.4 mg capsule 0.4 mg PO DAILY PRN (Reason: urination) allopurinol 300 mg tablet 300 mg PO DAILY hydrocodone-acetaminophen 5-325 mg tablet 1 tab PO Q6H PRN PRN (Reason: Pain) 3 Days Qty: 10 0RF ibuprofen 400 mg tablet 400 mg PO Q8H PRN (Reason: pain) Qty: 14 0RF ondansetron 4 mg tablet,disintegrating 4 mg PO Q8H PRN PRN (Reason: Nausea) Qty: 10 0RF Primary Care Provider: Anthony Solano Referrals: Anthony Solano MD [Primary Care Provider] - Disposition Disposition: Acute Care Hospital [facility] What to do if you have Problems For any increased pain, shortness of breath, bleeding, nausea or vomiting, chestpain, or any unexpected problems, contact your Primary Care Provider. Call [facility] ([phone]) or report to the closest Emergency Room. Call 911 if necessary. 10/15/23 0737 <Electronically signed by Heron Rodriguez DO> Cosigner Signature (if applicable): CC: Dr. Anthony Solano MD ~ Signed [facility] Work Phone: 1(220) 632-532605-11-2024 Discharge summary Author Jessica Mendoza [facility] October 14, 2023 7:40am Note Date/Time October 14, 2023 5:03a m [facility] Medical Records Department [address] [place] [address] Emergency Department Summary 10/14/23 MR#: [id number] Acct: [id number] Name: LYNN SCHREIBER Rep #:[id number] : 1955 68 From: Jessica Mendoza MD PCP: Dr. Anthony Solano MD Status:REG E R Location: ED HPI History of Present Illness Chief Complaint: Flank Pain Informant: patient Onset/Context/Timing Onset: Today Narrative Narrative: Patient presents with left flank pain that woke him from sleep at 1 AM this morning. He has a history of kidney stones and follows with Dr. Bear at the [facility]. He states has been told he had multiple small stones in each kidney. He has had dribbling of urination this morning with start/stop to his stream. [facility] Medical History Basal cell carcinoma Gout HTN (hypertension) Hyperlipidemia Kidney stone Pyelonephritis Restless leg syndrome Thyroid cancer Vertigo Home Medications allopurinol 300 mg tablet 300 mg PO DAILY 10/14/23 [History Last Taken Unknown] gabapentin 300 mg capsule 300 mg PO QHS 10/14/23 [History Last Taken Unknown] hydrocodone-acetaminophen 5-325mg 5mg-325mg 1 tab PO Q6H PRN PRN Pain 3 days #10TABLETS 10/14/23 [Rx Last Taken Unknown] ibuprofen 400 mg tablet 400 mg PO Q8H PRN pain #14 tabs 10/14/23 [Rx Last Taken Unknown] levothyroxine 137 mcg tablet 137 mcg PO MOTUWETHFRSA 10/14/23 [History Last Taken Unknown] lisinopril 5 mg tablet 5 mg PO DAILY 10/14/23 [History Last Taken Unknown] ondansetron 4 mg disintegrating tablet 4 mg PO Q8H PRN PRN Nausea #10 tabs 10/14/23 [Rx Last Taken Unknown] rosuvastatin 20 mg tablet 20 mg PO QHS 10/14/23 [History Last Taken Unknown] tamsulosin 0.4 mg capsule (Flomax) 0.4 mg PO DAILY PRN urination 10/14/23 [History Last Taken Unknown] Allergy/AdvReac Type Severity Reaction Status Date / Time No Known Allergies Allergy Verified 10/14/23 04:53 Social History Smoking Status: Never smoker ROS ROS ED Constitutional Constitutional ED: Denies chills or fever(s) Eyes Eyes: Denies discharge from eye(s) ENT ENT ED: Denies discharge from eye(s), rhinorrhea or sore throat Cardiovascular Cardiovascular: Denies chest pain or palpitations Respiratory/Chest Respiratory/Chest: Denies cough or dyspnea Gastrointestinal Gastrointestinal: Reports abdominal pain; Denies nausea or vomiting Genitourinary Genitourinary ED: Reports difficulty urinating; Denies dysuria Musculoskeletal Musculoskeletal: Reports back pain; Denies extremity pain Integumentary Denies Abrasions or rash Neurologic Neurologic: Denies headache(s) or weakness Psychiatric Psychiatric: Denies anxiety or depression Allergic/Immunologic Allergic/Immunologic ED: Denies lip swelling or urticaria EXAM Physical Exam Const Vital Signs: 10/14/23 04:52 10/14/23 05:51 10/14/23 06:00 Temperature 98 F Temperature Source Temporal Pulse Rate 54 L 74 70 Respiratory Rate 16 16 17 Blood Pressure 192/94 H 142/81 H 135/67 H Blood Pressure Mean 126 101 89 Pulse Ox 98 96 96 Oxygen Delivery Method Room Air Room Air 10/14/23 07:00 Temperature 97.3 F L Temperature Source Temporal Pulse Rate 50 L Respiratory Rate 17 Blood Pressure 129/63 H Blood Pressure Mean 85 Pulse Ox 97 Oxygen Delivery Method Room Air Positive well nourished and well developed General Appearance ED: well developed HEENT Reports moist mucous membranes Eyes EOMs intact bilaterally Chest Wall inspection of chest normal and palpation of chest normal Resp normal respiratory effort and clear to auscultation bilaterally Cardio regular rate and regular rhythm GI GI Narrative: Abdomen soft with no focal tenderness. No guarding or rebound. Back/Spine General Back: CVA tenderness left Neuro oriented x3 and no sensory deficits noted Motor Exam: strength 5/5 throughout Psych mental status grossly normal Skin no rashes or lesions noted MDM MDM MDM Narrative Medical decision making narrative: IV line established. Patient given IV fluids, Toradol, morphine, and Zofran. Labwork obtained to evaluate for leukocytosis, anemia, and electrolyte derangement. Urinalysis obtained to evaluate for infection/hematuria. CT flankobtained to evaluate for renal stone size and location. History & Record Review Discussion w/independent historian: Patient Lab Data Attestation: I reviewed the patient's lab results. Labs: Laboratory Results - last 24 hr 10/14/23 10/14/23 05:06 07:10 WBC 6.2 RBC 4.21 L Hgb 12.0 L Hct 37.6 L MCV 89.3 MCH 28.5 MCHC 31.9 L RDW Std Deviation 45.0 H RDW Coeff of Yoselyn 13.8 Plt Count 226 MPV 10.2 Immature Gran % (Auto) 0.300 Neut % (Auto) 56.2 Lymph % (Auto) 28.1 [place] % (Auto) 8.5 Eos % (Auto) 6.3 H Baso % (Auto) 0.6 Absolute Neuts (auto) 3.5 Absolute Lymphs (auto) 1.74 Nucleated RBC % 0 Sodium 139 Potassium 4.3 Chloride 108 H Carbon Dioxide 26.0 Anion Gap 5 BUN 20 H Creatinine 1.53 H Estim Creat Clear Calc 60.18 Est GFR (MDRD) Af Amer 58 L Est GFR (MDRD) Non-Af 48 L BUN/Creatinine Ratio 13.1 Glucose 134 H Calcium 9.5 Urine Color Yellow Urine Clarity Clear Urine pH 6.0 Ur Specific [place] 1.010 Urine Protein Negative Urine Glucose (UA) Normal Urine Ketones Negative Urine Occult Blood 50 H Urine Nitrite Negative Urine Bilirubin Negative Urine Urobilinogen Normal Ur Leukocyte Esterase 25 H Urine RBC 0-5 SEEN Urine WBC 0-5 SEEN Ur Squamous Epith Cells 0-5 SEEN Urine Bacteria 0 SEEN Urine Mucus 0 SEEN Radiography Diagnostic Testing: Clinical Impression(s) from Imaging Studies Abdomen/Pelvis CT 10/14/23 04:58 IMPRESSION: 6 mm stone in proximal left ureter with resultant moderate left hydronephrosis. Multiple bilateral nonobstructive kidney stones the largest measures 5 mm. Electronically Signed: Jeffery Hurley MD at 7:09 EDT Reading Location ID and State: [facility] / MD Tel , Service support , Treatment and Re-Evaluation :: CBC was normal white count at 6.2 with a hemoglobin of 12.0. Differential unremarkable. Chemistry studies reveal a BUN of 20 and creatinine 1.53. This is improved when compared to his most recent labs. Glucose is 134. CT scan of the abdomen and pelvis reveals a 6 mm stone in the proximal left ureter with moderate left hydronephrosis. Multiple bilateral nonobstructive kidney stones are noted, the largest measuring 5 mm. Urinalysis is obtained and reveals evidence of blood but no evidence of infection. Test results discussed with the patient. His pain is well-controlled at this time. He would like to try going home with analgesics, understanding that he may or may not pass this 6 mm stone that is still in the proximal ureter. He isgiven return instructions, and will call his urologist on Monday morning. Prescriptions sent to local pharmacy for him. Discharge Plan Triage Chief Complaint: Flank Pain ED Provider: Jessica Mendoza Dx/Rx/DC Orders Clinical Impression: Ureterolithiasis Instructions: ED Kidney Stone with Pain Prescriptions: New hydrocodone-acetaminophen 5-325 mg tablet 1 tab PO Q6H PRN PRN (Reason: Pain) 3 Days Qty: 10 0RF ibuprofen 400 mg tablet 400 mg PO Q8H PRN (Reason: pain) Qty: 14 0RF ondansetron 4 mg tablet,disintegrating 4 mg PO Q8H PRN PRN (Reason: Nausea) Qty: 10 0RF No Action levothyroxine 137 mcg tablet 137 mcg PO MOTUWETHFRSA gabapentin 300 mg capsule 300 mg PO QHS lisinopril 5 mg tablet 5 mg PO DAILY rosuvastatin 20 mg tablet 20 mg PO QHS tamsulosin [Flomax] 0.4 mg capsule 0.4 mg PO DAILY PRN (Reason: urination) allopurinol 300 mg tablet 300 mg PO DAILY Primary Care Provider: Anthony Solano Referrals: Anthony Solano MD [Primary Care Provider] - Activity Restrictions/Additional Instructions: Follow-up with your urologist on Monday. Disposition Disposition: Home, Self Care What to do if you have Problems For any increased pain, shortness of breath, bleeding, nausea or vomiting, chestpain, or any unexpected problems, contact your Primary Care Provider. Call [facility] ([phone]) or report to the closest Emergency Room. Call 911 if necessary. 10/14/23 0740 <Electronically signed by Jessica Mendoza MD> Cosigner Signature (if applicable): CC: Dr. Anthony Solano MD ~ Signed [facility] Work Phone: [phone] History of Present illness Narrative* Saurav Max MD - 10/04/2023 7:36 AM EDT Patient presents with: Cough: Congestion and headache x1 week HPI: Feeling sick for 1 week. Positive symptoms: Cough (productive), tickle in throat, Headache from coughing, Nasal Congestion, Rhinorrhea, Post nasal drainage, Negative symptoms: Shortness of breath, Wheezing, Chest pain, Sinus pressure, Fever, Chills, Body Aches, Nausea, Vomiting, Diarrhea, OTC: cough medicine Denies history of seasonal allergies or pneumonia. MEDICATIONS: Current Outpatient Medications Medication Sig tamsulosin (FLOMAX) 0.4 mg Take 1 capsule by mouth daily at bedtime. ketoconazole (NIZORAL) 2 % shampoo Apply to wet hair, lather for 5-10 minutes, and rinse thoroughly. Use 2-3 times weekly or as needed to control symptoms. allopurinol (ZYLOPRIM) 300 mg tablet Take 1 tablet by mouth once daily. Calcipotriene 0.005 % soln Apply to to scalp twice daily. Ipratropium Breeding (ATROVENT) 21 mcg (0.03 %) nasal spray Use 2 Sprays in the nose every 12 hours. levothyroxine (SYNTHROID) 137 mcg tablet Take 1 tablet by mouth once daily. Except none on sundays lisinopril (ZESTRIL) 5 mg tablet Take 1 tablet by mouth once daily. rosuvastatin (CRESTOR) 20 mg tablet Take 1 tablet by mouth daily at bedtime. triamcinolone acetonide (KENALOG) 0.1 % cream Apply to affected areas twice daily as needed for irritation following photodynamic therapy. Fluocinolone-Shower Cap 0.01 % oil Apply to affected area of scalp nightly and wash out in the morning. omega 8-vyk-vof-fish oil (FISH OIL) 100-160-1,000 mg cap Take by mouth once daily. ascorbic acid (SUSAN-C ORAL) Take by mouth once daily. CPAP AutoPAP with humidification set at a range of 5-16 cmH2O. Lifetime supplies. Please fit with dreamwear under nose FFM. Please provide us download after 4 weeks of use. Cholecalciferol, Vitamin D3, 50 mcg (2,000 unit) cap Take 1 capsule by mouth once daily. gabapentin (NEURONTIN) 300 mg capsule TAKE 1 CAPSULE BY MOUTH in evening THEN 2- 3 CAPSULES AT bedtime. Current Facility-Administered Medications Medication Dose Route Frequency Aminolevulinic Acid HCl 20 % soln 2 Each 2 Each TOPICAL As Directed perflutren lipid microspheres 1.3 mL in NaCl (PF) 0.9% 10 mL injection (DEFINITY) INTRAVENOUS DIRECTED PRN sodium chloride 0.9 % (flush) 10 mL (BD POSIFLUSH) 10 mL INTRAVENOUS DIRECTED PRN ALLERGIES: ALLERGIES No Known Allergies VITALS: BP 148/72 Pulse 65 Temp 36.2 C (97.2 F) Resp 16 Wt 122.1 kg (269 lb 2.9 oz) SpO2 98% BMI 37.54 kg/m PHYSICAL EXAM: GEN: Pleasant, in no acute distress. HEENT: PERRL, EOMI, conjunctiva clear Ears: canals clear. TMs without erythema, bulge, or effusion Sinuses: non-tender frontal sinus, non-tender maxillary sinuses Throat: moist mucous membranes, no erythema, no exudate Neck: supple, no thyromegaly, no lymphadenopathy HEART: regular rate and rhythm, no murmurs LUNGS: clear to auscultation, no wheezes or crackles, no increased WOB; intermittent cough ASSESSMENT/PLAN: 1. Acute cough - ICD9: 786.2, ICD10: R05.1 - suspect viral URI with bronchitis - Discussed supportive care treatment with cough medicine. - BENZONATATE 100 MG CAPSULE Follow up with worsening cough, worsening shortness of breath, increasing chest pain, or late onsetfever. Saurav Max MD documented in this encounterPrem[facility] Instructions* Patient Instructions* Bandar Graf PA-C - 09/19/2023 9:27 AM EDT Piroxicam 20mg once a day with food routinely until pain is fully resolved, then as needed. This medication may cause stomach symptoms including ulceration, bleeding, nausea, pain, and diarrhea. Makesure to take it with food. If you are known to have allergy to anti-inflamatories medications, or have known kidney disease, make sure we know this before you take the medication. Rest the joint. Ice over next few days to help with pain and swelling. Elevate as often as possibleto reduce swelling and throbbing. Leave splint on as much as possible. If you had an KAY wrap applied, remove and re-wrap the KAY forcomfort and circulation as needed. Keep your splint clean and dry. If any changes in color in fingers (blue or black), abnormal sensations, or increasing pain which is not resolved with adjusting KAY wraps or the splint, come in immediately or go to the emergency room to check. Topical lineaments, OTC analgesics as needed. documented in this encounterPremier [facility]04-16-[facility] History of Present illness Narrative* Bandar Graf PA-C - 09/19/2023 9:18 AM EDT 67 year old male with c/o left wrist, weakness in hand since yesterday Went to daughter's ball game, went out to eat after, reaching for can of pop and felt sudden pain in volar lateral wrist Since then no strength with grasp, pain in wrist and distal volar forearm. Hasn't taken any OTC pain medications. HISTORIES FAMILY HISTORY Problem Relation Age of Onset Hypertension Mother Diabetes Mother Prostate Cancer Father Cancer Father Stroke Maternal Grandfather Alcohol/Drug Maternal Grandfather Cancer Paternal Grandmother PAST MEDICAL HISTORY Diagnosis Date Ascending aorta dilatation (HCC) Basal cell cancer Decreased peripheral vision of left eye Elevated prostate specific antigen (PSA) Essential hypertension 07/06/2021 GERD (gastroesophageal reflux disease) Gout Jeffry's thyroiditis with thyroid nodules Kidney stones 06/27/2023 Mild left ventricular systolic dysfunction Mild pulmonary [...] Never used Substance Use Topics Alcohol use: Not Currently Drug use: Not Currently Types: Marijuana ACTIVE PROBLEM LIST Gout Tinnitus Hurthle Cell [...] Current Outpatient Medications Medication Sig Dispense Refill tamsulosin (FLOMAX) 0.4 mg Take 1 capsule by mouth daily at bedtime. 90 capsule 0 ketoconazole (NIZORAL) 2 % shampoo Apply to wet hair, lather for 5-10 minutes, and rinse thoroughly. Use 2-3 times weekly or as needed to control symptoms. 120 mL 5 gabapentin (NEURONTIN) 300 mg capsule TAKE 1 CAPSULE BY MOUTH in evening THEN 2- 3 CAPSULES AT bedtime. 360 capsule 0 allopurinol (ZYLOPRIM) 300 mg tablet Take 1 tablet by mouth once daily. 90 tablet 3 Calcipotriene 0.005 % soln Apply to to scalp twice daily. 60 mL 3 Ipratropium Breeding (ATROVENT) 21 mcg (0.03 %) nasal spray Use 2 Sprays in the nose every 12 hours.3.5 mL 5 levothyroxine (SYNTHROID) 137 mcg tablet Take 1 tablet by mouth once daily. Except none on sundays 90 tablet 4 lisinopril (ZESTRIL) 5 mg tablet Take 1 tablet by mouth once daily. 90 tablet 3 rosuvastatin (CRESTOR) 20 mg tablet Take 1 tablet by mouth daily at bedtime. 90 tablet 3 triamcinolone acetonide (KENALOG) 0.1 % cream Apply to affected areas twice daily as needed for irritation following photodynamic therapy. 15 g 1 Fluocinolone-Shower Cap 0.01 % oil Apply to affected area of scalp nightly and wash out in the morning. 118.28 mL 5 omega 6-jjc-acz-fish oil (FISH OIL) 100-160-1,000 mg cap Take by mouth once daily. ascorbic acid (SUSAN-C ORAL) Take by mouth once daily. CPAP AutoPAP with humidification set at a range of 5-16 cmH2O. Lifetime supplies. Please fit with Ucha.se under nose FFM. Please provide us download after 4 weeks of use. 1 Device 99 Cholecalciferol, Vitamin D3, 50 mcg (2,000 unit) cap Take 1 capsule by mouth once daily. Current Facility-Administered Medications Medication Dose Route Frequency Provider Last Rate Last Admin Aminolevulinic Acid HCl 20 % soln 2 Each 2 Each TOPICAL As Directed Gail Lebron PA-C 1 Each at 04/20/23 1045 perflutren lipid microspheres 1.3 mL in NaCl (PF) 0.9% 10 mL injection (DEFINITY) INTRAVENOUS DIRECTED PRN Ashley Chin APRN.[place] sodium chloride 0.9 % (flush) 10 mL (BD POSIFLUSH) 10 mL INTRAVENOUS DIRECTED PRN Ashley Chin APRN.CNP Advance Directive Discussion due on 06/05/2023 Behavioral Health Screening Never done EXAM: BP 130/74 Pulse 60 Resp 16 Ht 180.3 cm (5' 11) Wt 124.3 kg (274 lb) BMI 38.22 kg/m Pleasant left handed obese adult man in no acute distress. Alert and oriented all spheres. Normal affect and cognition. Speech normal. No deficits to learning or comprehension. Skin warm, dry, pink to lips and nailbeds. Normal turgor. Respirations regular and unlabored. Extrem: no clubbing or cyanosis. Edema: none. Extremities are warm and pink with prompt capillary refill. Mild swelling volar left wrist with tenderness over flexor tendon No pain with thumb movement, negative Finklestein's. ASSESSMENT/PLAN: 1. Left wrist tendonitis - ICD9: 727.05, ICD10: M77.8 Ice/ moist heat, lineaments, OTC analgesics as needed. No NSAIDs Wrist -thumb splint applied - PREDNISONE 10 MG TABLET Has been on previous steroids: teodora risks Bandar Graf PA-C documented in this encounterPrem[facility]04-16-2024 Miscellaneous Notes* Telephone Encounter - Bandar Prieto RN - 09/19/2023 8:25 AM EDT Patient reports last night, suddenly, felt sharp pain in left wrist, at bottom of inside of hand, about 3 out. Left hand became weak, was unable to lift a cup. This morning can grasp, but hand is still weak. Movement triggers pain. Reports he takes allopurinol, but it doesn't look like gout, no reddness, no warmth. No injury to left hand or wrist. Patient is left handed. Has ROM. Able to make a fist. No other symptoms. Scheduled same day appt. documented in this encounterPremier [facility]04-12-2024 Instructions* Patient Instructions* Jessiac Olvera APRN.CNP - 09/15/2023 9:06 AM EDT PLAN AND RECOMMENDATIONS: Continue same medications Follow up Dr El 6 months. CONTACT INFORMATION: Jessica Olvera APRN.CNP Cardiology Nurse Practitioner Section of Regional Cardiology [facility] Dept of Cardiovascular Medicine [place] [facility] [employer] [address] [id number] Office Office documented in this encounterPremier Health [facility]04-12-2024 History of Present illness Narrative* Jessica Olvera APRN.CNP - 09/15/2023 8:47 AM EDT Images from the original note were not included. [facility] V[facility] [employer] [facility] Department of Cardiovascular Medicine SECTION OF CLINICAL CARDIOLOGY OUTPATIENT VISIT DATE September 15, 2023 OUTPATIENT VISIT TYPE ESTABLISHED PRIMARY CARE PHYSICIAN: Bandar Graf [address] [place] [address] REFERRING PHYSICIAN: No referring provider defined for this encounter. CHIEF COMPLAINT: Follow Up (EKG today ) HISTORY OF PRESENT ILLNESS: Mr. Schreiber is a 67 year old male with PMH of thyroid cancer/ post surgical hypothyroidism, skin cancer, HLD, obesity, MAXIMILIAN, bradycardia, AAA, PHTN, HTN who presents today for a cardiovascular medicine follow-up visit for Dr El after he was last seen and no changes were made at that time. He denies shortness of breath, chest pain, palpitations, dizziness, lightheadedness, lower extremity edema, PND, orthopnea, presyncope, syncope, or claudication symptoms Subjective PAST MEDICAL HISTORY Diagnosis Date Ascending aorta dilatation (HCC) Basal cell cancer Decreased peripheral vision of left eye Elevated prostate specific antigen (PSA) Essential hypertension 07/06/2021 GERD (gastroesophageal reflux disease) Gout Jeffry's thyroiditis with thyroid nodules Kidney stones 06/27/2023 Mild left ventricular systolic dysfunction Mild pulmonary [...] Never used Substance Use Topics Alcohol use: Not Currently Drug use: Not Currently Types: Marijuana FAMILY HISTORY Problem Relation Age of Onset Hypertension Mother Diabetes Mother Prostate Cancer Father Cancer Father Stroke Maternal Grandfather Alcohol/Drug Maternal Grandfather Cancer Paternal Grandmother ALLERGIES: ALLERGIES No Known Allergies MEDICATIONS: tamsulosin (FLOMAX) 0.4 mg^Take 1 capsule by mouth daily at bedtime.^Disp: 90 capsule^Rfl: 0 ketoconazole (NIZORAL) 2 % shampoo^Apply to wet hair, lather for 5-10 minutes, and rinse thoroughly. Use 2-3 times weekly or as needed to control symptoms.^Disp: 120 mL^Rfl: 5 gabapentin (NEURONTIN) 300 mg capsule^TAKE 1 CAPSULE BY MOUTH in evening THEN 2- 3 CAPSULES AT bedtime.^Disp: 360 capsule^Rfl: 0 allopurinol (ZYLOPRIM) 300 mg tablet^Take 1 tablet by mouth once daily.^Disp: 90 tablet^Rfl: 3 Calcipotriene 0.005 % soln^Apply to to scalp twice daily.^Disp: 60 mL^Rfl: 3 Ipratropium Breeding (ATROVENT) 21 mcg (0.03 %) nasal spray^Use 2 Sprays in the nose every 12 hours.^Disp: 3.5 mL^Rfl: 5 levothyroxine (SYNTHROID) 137 mcg tablet^Take 1 tablet by mouth once daily. Except none on sundays^Disp: 90 tablet^Rfl: 4 lisinopril (ZESTRIL) 5 mg tablet^Take 1 tablet by mouth once daily.^Disp: 90 tablet^Rfl: 3 rosuvastatin (CRESTOR) 20 mg tablet^Take 1 tablet by mouth daily at bedtime.^Disp: 90 tablet^Rfl: 3 triamcinolone acetonide (KENALOG) 0.1 % cream^Apply to affected areas twice daily as needed for irritation following photodynamic therapy.^Disp: 15 g^Rfl: 1 Fluocinolone-Shower Cap 0.01 % oil^Apply to affected area of scalp nightly and wash out in the morning.^Disp: 118.28 mL^Rfl: 5 omega 2-ykr-ckl-fish oil (FISH OIL) 100-160-1,000 mg cap^Take by mouth once daily.^Disp: ^Rfl: ascorbic acid (SUSAN-C ORAL)^Take by mouth once daily.^Disp: ^Rfl: CPAP^AutoPAP with humidification set at a range of 5-16 cmH2O. Lifetime supplies. Please fit with Ucha.se under nose FFM. Please provide us download after 4 weeks of use.^Disp: 1 Device^Rfl: 99 Cholecalciferol, Vitamin D3, 50 mcg (2,000 unit) cap^Take 1 capsule by mouth once daily.^Disp: ^Rfl: REVIEW OF SYSTEMS: CARD: See HPI GENERAL: Negative for: Weight loss or gain, Fever and/or Chills HEENT: Negative for: Headache, Impaired Vision, Glasses, Hearing Impairment, Ringing in Ears, Nosebleeds, Bleeding Gums NECK: Negative for: Swelling, Pain, Stiffness RESPIRATORY: Negative for: Cough, Blood in Sputum, Shortness of breath, Wheezing, Apnea GASTROINTESTINAL: Negative for: Nausea, Vomiting, Diarrhea, Blood in stool, or Dark black stools MUSCULOSKELETAL: Negative for: Muscle or joint pain, Stiffness , Joint swelling NEUROLOGIC: Negative for: focal numbness/weakness, headaches, visual changes, ataxia, speech/language loss HEMATOLOGICAL/LYMPHATIC: Negative for: Easy bruising , Easy bleeding Objective PHYSICAL EXAMINATION: There were no vitals taken for this visit. General: Well appearing, in no acute distress. Skin: No clubbing, no cyanosis. Eyes: Extra ocular movements intact Neck: No jugular venous distention, no carotid bruits, carotids have a normal upstroke. Lungs: Clear to auscultation bilaterally, no wheezing or rhonchi. Heart: Regular rhythm, S1, S2 normal, no murmur. No peripheral edema . Grade 2/4 distal pulses bilaterally. Neuro: Oriented to person, place and time, alert, cooperative, gait coordinated. CARDIOVASCULAR MEDICINE TESTING: Electrocardiogram: sinus bradycardia. 1st degree AVB Last ECHO Result Conclusion ECHO Collected: 09/26/2022 9:39 AM (Final result) Impression: CONCLUSIONS: - Exam indication: Ascending aortic aneurysm - The left ventricle is normal in size. Left ventricular systolic function is normal. EF = 52 5% (2D biplane) Normal left ventricular diastolic function. - The right ventricle is normal in size. Right ventricular systolic function is normal. - There are no significant valvular abnormalities. - The visualized aorta is dilated with a maximal dimension of 4.3 cm. - Exam was compared with the prior echocardiographic exam performed on 08/02/2021, no significant change. * * * Final * * * I have personally reviewed the Electrocardiogram. I personally interviewed, confirmed and edited the above information if obtained by others. Conclusion: (I71.21) 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) (primary encounter diagnosis) Comment: time to recheck echo Plan: ECHO (E78.2) Mixed hyperlipidemia Comment: at target Plan: continue same medications (I10) Essential hypertension Comment: seems to be controlled. Plan: continue same medications PLAN AND RECOMMENDATIONS: Continue same medications Follow up Dr El 6 months. CONTACT INFORMATION: Jessica Olvera APRN.[place] Cardiology Nurse Practitioner Section of [facility] Dept of Cardiovascular Medicine [place] [facility] [employer] [address] [place] [address] Office Office documented in this encounterPremier [facility]03-19-2024 Instructions* Patient Instructions* Vika Sotelo Jr., MD - 08/22/2023 10:44 AM EDT Counseled patient on increasing fluids, avoiding/managing constipation, q3-4 hour voiding interval,adding vitamin c and cranberry into diet. documented in this encounterPremier Health [facility]03-19-2024 History of Present illness Narrative* Vika Sotelo Jr., MD - 08/22/2023 10:36 AM EDT ESTABLISHED PATIENT OFFICE VISIT HPI Lynn Schreiber is a 67 year old male who presents with history of kidney stones. Has passed several.Recently passed [address] shows 2 l sided stones at 2mm and 1 r sided stone at 4mm. Options discussed. Stone prevention discussed. LAB: Creatinine Date Value Ref Range Status 07/19/2023 1.41 (H) 0.73 - 1.22 mg/dL Final PSA (ng/mL) Date Value 12/12/2022 3.82 06/21/2022 6.33 07/09/2018 2.94 06/28/2016 2.30 11/16/2015 3.10 PSA Screening (ng/mL) Date Value 06/15/2022 4.18 05/13/2013 1.99 Glucose, Urine (mg/dL) Date Value 05/13/2019 Negative Bilirubin, Urine (no units) Date Value 05/13/2019 Negative Ketones, Urine (no units) Date Value 05/13/2019 Negative Specific [place], Ur (no units) Date Value 05/13/2019 1.008 Hemoglobin/Blood,Ur ( ) Date Value 05/13/2019 Negative pH, Urine (no units) Date Value 05/13/2019 6.0 Protein, Urine (mg/dL) Date Value 05/13/2019 Negative Nitrites (no units) Date Value 05/13/2019 Negative WBC, Urine (/HPF) Date Value 05/13/2019 0-5 MEDICATIONS: tamsulosin (FLOMAX) 0.4 mg^Take 1 capsule by mouth daily at bedtime.^Disp: 90 capsule^Rfl: 0 ketoconazole (NIZORAL) 2 % shampoo^Apply to wet hair, lather for 5-10 minutes, and rinse thoroughly. Use 2-3 times weekly or as needed to control symptoms.^Disp: 120 mL^Rfl: 5 gabapentin (NEURONTIN) 300 mg capsule^TAKE 1 CAPSULE BY MOUTH in evening THEN 2- 3 CAPSULES AT bedtime.^Disp: 360 capsule^Rfl: 0 allopurinol (ZYLOPRIM) 300 mg tablet^Take 1 tablet by mouth once daily.^Disp: 90 tablet^Rfl: 3 Calcipotriene 0.005 % soln^Apply to to scalp twice daily.^Disp: 60 mL^Rfl: 3 Ipratropium Breeding (ATROVENT) 21 mcg (0.03 %) nasal spray^Use 2 Sprays in the nose every 12 hours.^Disp: 3.5 mL^Rfl: 5 levothyroxine (SYNTHROID) 137 mcg tablet^Take 1 tablet by mouth once daily. Except none on sundays^Disp: 90 tablet^Rfl: 4 lisinopril (ZESTRIL) 5 mg tablet^Take 1 tablet by mouth once daily.^Disp: 90 tablet^Rfl: 3 rosuvastatin (CRESTOR) 20 mg tablet^Take 1 tablet by mouth daily at bedtime.^Disp: 90 tablet^Rfl: 3 triamcinolone acetonide (KENALOG) 0.1 % cream^Apply to affected areas twice daily as needed for irritation following photodynamic therapy.^Disp: 15 g^Rfl: 1 Fluocinolone-Shower Cap 0.01 % oil^Apply to affected area of scalp nightly and wash out in the morning.^Disp: 118.28 mL^Rfl: 5 omega 0-nqb-mig-fish oil (FISH OIL) 100-160-1,000 mg cap^Take by mouth once daily.^Disp: ^Rfl: ascorbic acid (SUSAN-C ORAL)^Take by mouth once daily.^Disp: ^Rfl: CPAP^AutoPAP with humidification set at a range of 5-16 cmH2O. Lifetime supplies. Please fit with [employer] under nose FFM. Please provide us download after 4 weeks of use.^Disp: 1 Device^Rfl: 99 Cholecalciferol, Vitamin D3, 50 mcg (2,000 unit) cap^Take 1 capsule by mouth once daily.^Disp: ^Rfl: REVIEW OF SYSTEMS Review of Systems Constitutional: Negative. Respiratory: Negative. Cardiovascular: Negative. Gastrointestinal: Negative. Genitourinary: Negative. Skin: Negative. Neurological: Negative. Psychiatric/Behavioral: Negative. HISTORIES PAST MEDICAL HISTORY Diagnosis Date Ascending aorta dilatation (HCC) Basal cell cancer Decreased peripheral vision of left eye Elevated prostate specific antigen (PSA) Essential hypertension 07/06/2021 GERD (gastroesophageal reflux disease) Gout Jeffry's thyroiditis with thyroid nodules Kidney stones 06/27/2023 Mild left ventricular systolic dysfunction Mild pulmonary [...] Never used Substance Use Topics Alcohol use: Not Currently Drug use: Not Currently Types: Marijuana PHYSICAL EXAMINATION General appearance: Well appearing, alert, in no acute distress, and well- hydrated, well nourished Skin: Skin color, texture, turgor normal, no suspicious rashes or lesions Respiratory:+ effort Cardiovascular: Not examined GI: Normal abdominal exam, Abdomen soft, non-tender. No masses, organomegaly Musculoskeletal: Negative Neuro: Negative Genitourinary: not examined Impression: (N20.0) Kidney stones (primary encounter diagnosis) Plan: Stone prevention 1 year with chivo Hewitt prior Vika Sotelo Jr, MD 08/22/2023 documented in this encounterPremier [facility]02-29-2024 Miscellaneous Notes* Telephone Encounter - Solange Marinelli LPN - 08/03/2023 4:45 PM EST Requested recent records from [facility] via [employer]- uploaded to [email or web address] to scanned docs via [email or web address]. Solange Marinelli LPN documented in this encounterPremier Health [facility] Center02-09-2024 Instructions* Patient Instructions* Alda Sky APRN.CROSS ENTERPRISE INTEGRATOR - 07/14/2023 8:51 AM EST SKIN CARE AFTER CRYOSURGERY The skin's response to cryosurgery (freezing) can be mild to severe, depending on the depth of the freeze and location of the area treated. You may have minimal redness and swelling with little discomfort or significant discoloration and blistering with considerable discomfort. A burning sensation in the skin may last from several minutes to several hours after the procedure. Follow these instructions when caring for an area treated by cryosurgery: 1. Please clean the area every day with gentle soap and water. It is not necessary to cover the site with a bandage. However, it may be used for protection and it must be changed daily. Do not leave a soiled or wet bandage on the wound. 2. If you are experiencing discomfort you may use a cool compress, elevate the area or take over the counter pain relievers. 3. Apply Vaseline or Aquaphor daily to the site. This can help with itching, irritation, and discomfort. -The lesion may take 2-4 weeks to fully resolve. Depending on the severity of treatment and lesion treated, it may take longer. -DO NOT USE NEOSPORIN OR BACITRACIN as there is a fairly high incidence of allergic response to these products. -You may experience some mild discomfort, redness, swelling, and/or a clear discharge from the wound after your procedure. Severe pain, worsening swelling, and foul-smelling discharge from the site are NOT to be expected. If you have concerns about how your wounds are healing, please send your provider a [email or web address] message or call . documented in this encounterPremier Health [facility]02-09-2024 History of Present illness Narrative* Alda Sky APRN.CNP - 07/14/2023 8:25 AM EST Images from the original note were not included. Department of Dermatology Alda Sky APRN.CNP 07/14/2023 Last visit in Dermatology: 04/20/2023 Objective/Assessment/Plan 1. Seborrheic dermatitis Scalp [place]-erythematous plaques with greasy scale. discussed treatment options, recommend ketoconazole shampoo daily as needed. Instructed to apply directly to scalp and lather for 5-10 minutes prior to rinsing. Continue clobetasol solution 1-2 times daily as needed for itching relief. R/b/a for the medication(s) including possible side effects discussed and reviewed with patient. 2. Seborrheic keratosis Torso - Posterior (Back) Hyperpigmented, stuck-on papules to the back Observational course. Monitor for growth and changes. 3. Inflamed seborrheic keratosis Torso - Posterior (Back) Few irritated hyperpigmented, stuck-on papules Offered LN2, patient deferred for today. Observational course. Monitor for growth and changes. 4. AK (actinic keratosis) (4) Mid Forehead (3), Right Druze Red papules with gritty adherent scale. CRYOTHERAPY SKIN LESION - Mid Forehead (3), Right Druze Complexity: simple Destruction method: cryotherapy Informed consent: discussed and consent obtained Timeout: patient name, date of , surgical site, and procedure verified Lesion destroyed using liquid nitrogen: Yes Cryotherapy cycles: 2 Outcome: patient tolerated procedure well with no complications Post-procedure details: wound care instructions given Additional details: I discussed treatment options with the patient. The risks of blistering, infection, scarring, damage to underlying structures and potential need for future procedures discussed. The patient verbalized understanding and desires us to proceed. The nature of sun-induced photo-aging and skin cancers is discussed. Sun avoidance, protective clothing, and the use of 30-SPF sunscreens is advised. Patient is instructed to perform regular self exams. Observe for changing, symptomatic, or new skin lesions and seek care with the patient's primary care provider or with dermatology if any lesions of concern are noted. Follow-up as noted below or as needed. Chief Complaint: Patient presents with: Localized Skin Check Subjective and Objective HPI: Lynn Schreiber is a 67 year old male who presents for: Skin check. Desires: Localized exam of face only History of skin cancer?: Yes: BCC Areas of particular concern?: Yes: back of head Patient following up PDT. He tolerated treatment well. He notes he still has a few lesions on the face. He also notes some itching on the scalp and back. Past medical history is reviewed. Medication list is reviewed. Physical Exam included: scalp, face, ears, neck, and back Intake information obtained by Kelsie Ogden Ma 07/14/23 8:27 AM I agree with the Chief Complaint, ROS, and Past Histories independently gathered by the clinical direct support specialist and the remaining scribed note accurately describes my personal service to the patient. Alda Sky APRN.CROSS ENTERPRISE INTEGRATOR documented in this encounterPremier Health [facility]11-21-2023 Miscellaneous Notes* Telephone Encounter - Keri Ferro RN - 04/25/2023 3:00 PM EST Placed in the mail * Telephone Encounter - Marry Hernandez RN - 04/20/2023 2:41 PM EST [employer] insurance forms brought in by patient. Forms placed on Gail Lebron MS, PA-C desk for completion. Please mail forms to patient in self addressed envelope (attached). documented in this encounterPremier Health [facility] Center11-16-2023 Instructions* Patient Instructions* Marry Hernandez RN - 04/20/2023 10:33 AM [...] to the entire treated area, twice a dayas needed for 2-4 days, to help decrease redness and irritation. Apply the steroid BEFORE applying Aquaphor ointment, not afterwards. Apply cool compresses as needed for comfort during the first few days. After day 3, gently exfoliate with a soft washcloth and warm water twice a day. Then apply either Aquaphor or Vaseline. To address swelling and redness, you may also take skjs-quu-dhitnpu oral medications: Claritin (loratidine) 10 mg in [...] questions or concerns, call the following number(s): [facility] [phone] documented in this encounterPremier Health [facility] Valley [facility] Center11-16-2023 History of Present illness Narrative* Marry Hernandez RN - 04/20/2023 10:32 AM EST PHOTODYNAMIC THERAPY April 20, 2023 Dx: Actinic Keratosis Pt ID verified with patient: Yes Procedure verified against order and with patient: Yes Skin prepped with 70% isopropyl alcohol Yes Area treated: Full face Number of Levulan sticks applied: 1 Lot # [id number] Exp 11/2025 Time before Blue Light exposure: 15 minutes Area treated: Full face Pt exposed to light for 30 minutes Patient reaction during treatment: None, patient tolerated procedure well. Patient reaction after treatment: None, patient tolerated procedure well. Aftercare instructions given. Patient verbalizes understanding. Follow up with Gail Lebron PA-C . Marry Hernandez RN documented in this encounterPremier Health [facility] Center10-12-2023 History of Present illness Narrative* Caroline El, - 03/16/2023 9:51 AM EDT Images from the original note were not included. [facility] SE[facility] OUTPATIENT VISIT DATE March 16, 2023 PRIMARY CARE PHYSICIAN: Bandar Graf [address] [place] [address] HISTORY OF PRESENT ILLNESS: Mr. Schreiber is a 67 year old male. The [...] Pulse (!) 54 Ht 180.3 cm (5' 11) Wt 120.7 kg (266 lb) SpO2 97% [...] 5-16 cmH2O. Lifetime supplies. Please fit with [employer] under nose FFM. Please provide us download after 4 weeks of use.^Disp: 1 Device^Rfl: 99 Fluocinolone-Shower Cap 0.01 % oil^Apply to affected area of scalp nightly and wash out in the morning.^Disp: 118.28 mL^Rfl: 5 gabapentin (NEURONTIN) 300 mg capsule^TAKE 1 CAPSULE BY MOUTH AFTER ARRIVING HOME FROM WORK THEN 2 CAPSULES AT APPROXIMATELY 7 PM^Disp: 270 capsule^Rfl: 1 Ipratropium Breeding (ATROVENT) 21 mcg (0.03 %) nasal spray^Use [...] mouth once daily.^Disp: 90 tablet^Rfl: 3 omega 4-meu-yfw-fish oil (FISH OIL) 100-160-1,000 mg cap^Take by mouth.^Disp: ^Rfl: rosuvastatin (CRESTOR) 20 mg tablet^Take 1 tablet by mouth daily at bedtime.^Disp: 90 tablet^Rfl: 3 triamcinolone acetonide (KENALOG) 0.1 % cream^Apply to affected areas twice daily as needed for irritation following photodynamic therapy.^Disp: 15 g^Rfl: 1 Vitamin E, dl, acetate, (VITAMIN E) 134 mg (200 unit) Capsule^Take by mouth once daily.^Disp: ^Rfl: Caroline El DO, FACC, [facility] Arch Pad Cementer, [facility] Ambulatory Cardiology Arch Pad Cementer, [facility] Cardiac Rehabilitation Arch Pad Cementer, [facility] Arch Pad Cementer, [facility] Arch Pad Cementer, [facility] Ambulatory Cardiology Clinical Sail Finisher Machine Profressor of Medicine, [facility] Staff Heel Scourer, Fran Armstrong Department of Cardiovascular Medicine/Heart and Vascular [place], [facility] Please note: This note has been produced using speech recognition software and may contain errors related to that system including cullen, punctuation, spelling, words, gender and phrases that may be inappropriate. documented in this encounterPremier Health [facility] Center2023 Miscellaneous Notes* Telephone Encounter - Karina Jewell OCCA - 03/03/2023 10:36 AM EDT Signed forms faxed back as directed below. Uploaded to patient chart for future reference. DAVID Sears * Telephone Encounter - Karina Jewell OCCA - 03/03/2023 10:35 AM EDT Type of form: Medical Necessity Form received via fax When form is completed, Fax [facility] at [phone] Form has been forwarded to Physician Desk: DAVID Wellington documented in this encounterPremier Health [facility] Center08-09-2023 History of Present illness Narrative* Gail Lebron PA-C - 01/11/2023 2:15 PM EDT EST PATIENT Chief Complaint: Patient presents with: LESION, SKIN HPI: Lynn Schreiber is a 67 year old male who [...] Left Flank, Right Flank, Right Upper Back [place] and brown stuck on verrucous scaly papule [...] Past Histories independently gathered by the clinical direct support specialist and the remaining scribed note accurately describes my personal service to the patient. Gail Lebron MS, SUZANNA documented in this encounterPremier Health [facility] Center08-01-2023 Miscellaneous Notes* Telephone Encounter - Edin Horne - 01/03/2023 11:22 AM EDT Called and spoke with patient. Patient is scheduled for follow up in June. * Telephone Encounter - Ignacio Rivera - 12/13/2022 9:41 AM EDT Per message wait list: No appts loading. RFV annual thyroid cancer follow up (end of Jun or early Jul). [phone]. Template not yet released will post-pone. documented in this encounterPremier Health [facility] Center07-10-2023 Instructions* Patient Instructions* Anthony Loredo Jr., MD - 12/12/2022 10:49 AM EDT Your most recent body mass index (BMI) that we have on record is 35.62 kg/m2. Obstructive sleep apnea (MAXIMILIAN) worsens with an increase in weight; reduction in weight may improve or resolve your MAXIMILIAN. Ifyou are not already seeking treatment, there are resources available at the [facility] such as a nutrition consultation or referral to weight management programs at our [facility] [place]. Please let us know if we can assist with a referral. documented in this encounterPremier Health [facility] Center07-10-2023 History of Present illness Narrative* Anthony Loredo Jr., MD - 12/12/2022 10:31 AM EDT ESTABLISHED PATIENT VISIT CHIEF COMPLAINT: Follow Up HISTORY OF PRESENT ILLNESS: Lynn Schreiber is a 67 year old male, BMI [...] night, but not having his legs move allnight. Currently taking gabapentin 900mg between dinner and [...] scalp twice daily.^Disp: 60 mL^Rfl: 3 Ipratropium Breeding (ATROVENT) 21 mcg (0.03 %) nasal spray^Use 2 Sprays in the nose every 12 hours.^Disp: 3.5 mL^Rfl: 5 Vitamin E, dl, acetate, (VITAMIN E) 134 mg (200 unit) Capsule^Take by mouth once daily.^Disp: ^Rfl: omega 1-zjf-msl-fish oil (FISH OIL) 100-160-1,000 mg cap^Take by mouth.^Disp: ^Rfl: ascorbic acid (SSUAN-C ORAL)^Take by mouth.^Disp: ^Rfl: CPAP^AutoPAP with humidification set at a range of 5-16 cmH2O. Lifetime supplies. Please fit with [employer] under nose FFM. Please provide us download [...] objectively with PAP with perceived benefit. No complaintswith PAP therapy. Encouraged compliance. Reminded to clean and replace equipment regularly. Advisedpt not to drive or operate heavy machinery [...] V85.35, ICD10: E66.9, Z68.35 Encouraged weight loss. Anthony Loredo MD Medical Decision Making: Problems: Moderate: 2+ stable chronic illnesses Data: Unique test result(s) reviewed: 2 Risk: Moderate: Drug management Medical Decision Making Level: 4 - Moderate PDMP website checked and validated. All prescriptions have been APPROPRIATELY filled. No suspiciousactivity was identified. 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 Worked in [employer]. Sand dust. Dyspnea with exertion: No orthopnea: [...] Lymph 1.00 - 4.00 k/uL 2.37 1.83 Latimer% % 6.9 7.5 Abs Latimer <0.87 k/uL 0.47 0.67 Eosin% % 3.4 [...] with manifestations 11/09/2022 gout episode reviewed by Nicolette Perales PA-C: prednisone 40-10 over 12 days [...] 1.99 G47.00 Insomnia, unspecified type Better since intermediate, Also improved with CPAP HISTORIES FAMILY HISTORY [...] scalp twice daily. 60 mL 3 Ipratropium Breeding (ATROVENT) 21 mcg (0.03 %) nasal spray Use 2 Sprays in the nose every 12 hours.3.5 mL 5 Vitamin E, dl, acetate, (VITAMIN E) 134 mg (200 unit) Capsule Take by mouth once daily. (Patient not taking: Reported on 10/28/2022) omega 3-sdh-qao-fish oil (FISH OIL) 100-160-1,000 mg cap Take [...] 10 mL injection (DEFINITY) INTRAVENOUS DIRECTED PRN Ashley Chin, 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 sodium chloride 0.9 % (flush) 10 mL (BD POSIFLUSH) 10 mL INTRAVENOUS DIRECTED PRN Ashley Chin, 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 SHINGRIX VACCINE(1 of 2) Never done ADVANCE [...] Stable, has improved with more exercise in intermediate 12. Hurthle cell carcinoma of thyroid (HCC) [...] cancer screening discussed. screening PSA ordered F/u M Caroline Graf PA-C documented in this encounterPremier Health [facility] Center06-08-2023 Miscellaneous Notes* Telephone Encounter - Maryuri Wolf MA - 11/10/2022 9:41 AM EDT Patient's notified and voiced understanding. Maryuri Wolf MA * Telephone Encounter - Nicolette Perales PA-C - 11/10/2022 8:33 AM EDT Let patient know that uric acid level is actually okay. But in acute gout flare ups, we sometimes see a falsely low uric acid level. Therefore I want him to continue the current tx plan and let us know if not improving. documented in this encounterPremier Health [facility] Center06-07-2023 History of Present illness Narrative* Nicolette Perales PA-C - 11/09/2022 9:10 AM EDT Chief Complaint Patient presents with: Pain (foot): Left ankle HPI Lynn Schreiber is a 67 year old male who presents here today for Above Complaints.. Patient states he has increased left ankle pain in the past 3 days. He does have hx of gout and suspects that this may be the cause. Typically will get it in his kneesor ankles Patient states that ankle is swollen. [...] Apply to to scalp twice daily. Ipratropium Breeding (ATROVENT) 21 mcg (0.03 %) nasal spray Use 2 Sprays in the nose every 12 hours. omega 7-osl-qri-fish oil (FISH OIL) 100-160-1,000 mg cap Take [...] URIC ACID BLOOD - CBC + DIFF Nicolette Perales PA-C documented in this encounterPremier Health [facility] Center05-31-2023 Miscellaneous Notes* Telephone Encounter - Francis Cobos LPN - 11/02/2022 10:11 AM EDT Patient phones requesting refills as follows: Requested Prescriptions Pending Prescriptions Disp Refills allopurinol (ZYLOPRIM) 300 mg tablet 30 tablet 2 Sig: Take 1 tablet by mouth once daily. ENIO 06/13/22 NOV 12/12/22 Please review and advise. Francis Cobos LPN documented in this encounterPremier Health Upper Valley [facility] Center04-12-2023 Miscellaneous Notes* Telephone Encounter - Joyce Berry APRN.[place] - 09/14/2022 3:08 PM EDT Patient's request for medication is as follows: Requested Prescriptions Pending Prescriptions Disp Refills lisinopril (ZESTRIL) 5 mg tablet 90 tablet 3 Sig: Take 1 tablet by mouth once daily. Prescription(s) as above. Please process accordingly. Joyce Berry APRN.[place] * Telephone Encounter - Aaliyah Belcher MA - 09/14/2022 2:05 PM EDT ENIO: 09/14/22 Giuseppe NOV: 03/16/23 Kate documented in this encounterPremier Health Upper Valley Medical Center04-12-2023 Instructions* Patient Instructions* Ahsley Chin APRN.[place] - 09/14/2022 10:53 AM EDT It was great to see you today, as we discussed: 1. You are due for repeat echocardiogram to check your aorta. This can be done at [facility] 2. Your risk of a cardiac event in the next 10 years is elevated at 18% for this we would like to get better control of your cholesterol. Please stop Lovastatin and start Rosuvastatin (Crestor) 20 mgdaily 3. Fasting labs in 3 months to [...] sooner if need arises documented in this encounterPremier Health Upper Valley Medical Center04-12-2023 History of Present illness Narrative* Ashley Chin APRN.CNP - 09/14/2022 10:30 AM EDT Images from the original note were not included. Heart and Vascular [place] Fran Ortiz Department of Cardiovascular Medicine SECTION OF CLINICAL CARDIOLOGY OUTPATIENT VISIT DATE September 14, 2022 OUTPATIENT VISIT TYPE ESTABLISHED PRIMARY CARE PHYSICIAN: Bandar Graf [address] [place] [address] REFERRING PHYSICIAN: Tereza Reeves [address] [place] [address] CHIEF COMPLAINT: Follow up HISTORY OF PRESENT ILLNESS: Mr. Schreiber is a 66 year old male with [...] scalp twice daily.^Disp: 60 mL^Rfl: 3 Ipratropium Breeding (ATROVENT) 21 mcg (0.03 %) nasal spray^Use 2 Sprays in the nose every 12 hours.^Disp: 3.5 mL^Rfl: 5 lisinopril (ZESTRIL, PRINIVIL) 5 mg tablet^Take 1 tablet by mouth once daily.^Disp: 90 tablet^Rfl: 3 Vitamin E, dl, acetate, (VITAMIN E) 134 mg (200 unit) Capsule^Take by mouth once daily.^Disp: ^Rfl: omega 6-gyz-plm-fish oil (FISH OIL) 100-160-1,000 mg cap^Take by [...] or cold intolerance, Excessive sweating, Frequent urination, Frequentthirst Objective PHYSICAL EXAMINATION: BP 114/70 Pulse (!) 43 Ht 181.6 cm (5' 11.5) Wt 119.9 kg (264 lb 6.4 oz) [...] cardiovascular risk factor modification and follow up withDrGeorge El in 6 months, or sooner should need arise. CONTACT INFORMATION: Ashley Chin APRN.[place] Cardiology Nurse Practitioner Section of Regional Cardiology [facility] Dept of Cardiovascular Medicine [place] [facility] V[facility] [place] [address] Office Office This note was partially generated using [employer] voice recognition system and may contain errors related to that system including grammar, punctuation, spelling, and words that may be inappropriate documented in this encounterPremier Health Upper [facility] Center02-27-2023 Miscellaneous Notes* Telephone Encounter - Wendy Gaxiola MA - 08/01/2022 10:03 AM EST Patient has been identified by name and date of : Yes Requested Prescriptions Pending Prescriptions Disp Refills allopurinol (ZYLOPRIM) 300 mg tablet 30 tablet 2 Sig: Take 1 tablet by mouth once daily. RX INSTRUCTIONS: Patient aware RX will be sent to pharmacy. No need to notify patient. Pt ENIO 06/13/22 with SARA Vega 12/12/22 Wendy Gaxiola MA documented in this encounterPremier Health [facility] Center02-01-2023 History of Present illness Narrative* Elena Sepulveda V, MD - 07/06/2022 10:47 AM EST FOLLOW UP VISIT THIS NOTE WAS CARRIED FORWARD FROM THE VISIT WITH ME IN JUL 2021 AND ADDENDED APPROPRIATE TO REFLECT TODAY'S VISIT WITH HISTORY, EXAM, ROS, DATA REVIEWED AND ASSESSMENT AND PLAN. 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 Ipratropium Breeding (ATROVENT) 21 mcg (0.03 %) nasal spray Use 2 Sprays in the nose every 12 hours. lisinopril (ZESTRIL, PRINIVIL) 5 mg tablet Take 1 tablet by mouth once daily. lovastatin 40 mg tablet Take 1 tablet by mouth daily at bedtime. Vitamin E, dl, acetate, (VITAMIN E) 134 mg (200 unit) Capsule Take by mouth once daily. 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 OK to do it since levels have [...] ordered Elena Sepulveda MD documented in this encounterPremier [facility]01-13-2023 Miscellaneous Notes* Telephone Encounter - Otilia Geronimo LPN - 06/17/2022 1:26 PM EST Patient notified of results, verbalizes understanding of instructions. She will tell Pt. Otilia Geronimo LPN * Telephone Encounter - Silvia León APRN.CROSS ENTERPRISE INTEGRATOR - 06/17/2022 12:54 PM EST Can please let patient know that I received his lab results. Everything looks okay. His prostate enzyme did go up some, but is normal for age. However, since we have in his history that his father had a hx of prostate CA, I would recommend an additional blood test. The order is in. He just needs tocome in for the additional testing. It looks like he still has some thyroid studies ordered by endocrinology that are still in process. Silvia León APRN.[place] documented in this encounterPremier Health [facility] Center01-09-2023 History of Present illness Narrative* Anthony Loredo Jr., MD - 06/13/2022 2:06 PM EST ESTABLISHED PATIENT VISIT CHIEF COMPLAINT: Follow Up HISTORY OF PRESENT ILLNESS: Lynn Schreiber is a 66 year old male, BMI [...] of 6 hours and 59 minutes. AHI is0.8. 95% pressure is 9.4 cmH2O. 95% leak is 12.9 LPM. Pressure set at 5-16 cmH2O. states pt is sleeping good. She states she has never seen a hebert get good sleep. Patient states wakes a couple times to [...] have let yourself or your family down Notat all Not at all Not at all [...] made it for you to do your work,take care of things at home, or get along with other people? Not difficult at all - - PHQ-9 Score 0 (None-Minimal Depression) 3 (None-Minimal Depression) 0 (None- Minimal Depression) [place] Sleepiness Scale 07/12/2020 10/13/2020 11/24/2021 Score - [...] scalp twice daily.^Disp: 60 mL^Rfl: 3 Ipratropium Breeding (ATROVENT) 21 mcg (0.03 %) nasal spray^Use [...] Capsule^Take by mouth once daily.^Disp: ^Rfl: omega 1-trh-ell-fish oil (FISH OIL) 100-160-1,000 mg cap^Take by mouth.^Disp: ^Rfl: ascorbic acid (SUSAN-C ORAL)^Take by mouth.^Disp: ^Rfl: levothyroxine (SYNTHROID) 137 mcg tablet^Take 1 tablet by mouth once daily. Except none on sundays^Disp: 90 tablet^Rfl: 4 CPAP^AutoPAP with humidification set at a range of 5-16 cmH2O. Lifetime supplies. Please fit with [employer] under nose FFM. Please provide us download [...] for most recent Cr Clearance. Await results. Anthony Loredo MD I spent a total of 25+ minutes on the date of the service which included preparing to see the patient, [id number] patient care, completing clinical documentation, obtaining and/or reviewing separately obtained history, performing a medically appropriate examination, counseling and educating the pa tient/family/caregiver, ordering medications, tests, or procedures, independently interpreting results (not separately reported), and communicating results to the patient/family/caregiver (results = PAP download). PDMP website checked and validated. All prescriptions have been APPROPRIATELY filled. No suspiciousactivity was identified. 06/13/2022 by Anthony Loredo MD documented in this encounterPremier Health [facility] Center11-28-2022 Miscellaneous Notes* Telephone Encounter - Bandar Graf PA-C - 05/02/2022 6:20 PM EST Last virtual visit was 06/19/2020 Due for labs and exam. Seeing Silvia 05/16/2022 for physical. Will need to schedule follow with me at some point. The following approved medication requests have been transmitted electronically. Requested Prescriptions Signed Prescriptions Disp Refills allopurinol (ZYLOPRIM) 300 mg tablet 30 tablet 2 Sig: Take 1 tablet by mouth once daily. Authorizing Provider: Bandar GRAF PA-C * Telephone Encounter - Francis Cobos LPN - 05/02/2022 9:09 AM EST Patient phones requesting refills as follows: Requested Prescriptions Pending Prescriptions Disp Refills allopurinol (ZYLOPRIM) 300 mg tablet 30 tablet 11 Sig: Take 1 tablet by mouth once daily. ENIO 06/19/20 (vv); 05/06/19 (in person) NOV no upcoming appt *Pt is overdue for Annual appt with PCP. MyChart message to pt advising of the same. Awaiting response. Please review and advise. Francis Cobos LPN documented in this encounterPremier Health [facility] Center10-19-2022 Miscellaneous Notes* Telephone Encounter - Alisson Esparza - 03/23/2022 8:58 AM EDT Received request for prescription by fax from [facility]. Form is placed in the provider's in box for signature. Will fax to Tami Rodriguez after signed. documented in this encounterPremier Health [facility] Center08-19-2022 History of Present illness Narrative* Millie Wolf APRN.CROSS ENTERPRISE INTEGRATOR - 01/21/2022 7:28 AM EDT CC: Patient presents with: Head Congestion: Fever, chills, SCHWAB, cough x 3 days HPI: Lynn Schreiber is a 66 year old male who [...] PAST SURGICAL HISTORY Procedure Laterality Date COLONOSCOPY 10-31-14 repeat in 10 yrs INT REPAIR SCALP,SYDNI,TRUNK <2.5CM 12-23-10 PAST SURGICAL HISTORY OF left knee PAST SURGICAL HISTORY OF right hammer toe PAST SURGICAL HISTORY OF left hammer toe REM LESION TRUNK,ARM, LEG <0.5 CM 12-23-10 THYROIDECTOMY TOTAL/COMPLETE 12-23-10 ALLERGIES Patient has no known allergies. MEDICATIONS Ipratropium Breeding (ATROVENT) 21 mcg (0.03 %) nasal spray^Use [...] Capsule^Take by mouth once daily.^Disp: ^Rfl: omega 8-svf-qai-fish oil (FISH OIL) 100-160-1,000 mg cap^Take by mouth.^Disp: ^Rfl: ascorbic acid (SUSAN-C ORAL)^Take by mouth.^Disp: ^Rfl: levothyroxine (SYNTHROID) 137 mcg tablet^Take 1 tablet by mouth once daily. Except none on sundays^Disp: 90 tablet^Rfl: 4 allopurinol (ZYLOPRIM) 300 mg tablet^Take 1 tablet by mouth once daily.^Disp: 30 tablet^Rfl: 11 CPAP^AutoPAP with humidification set at a range of 5-16 cmH2O. Lifetime supplies. Please fit with [employer] under nose FFM. Please provide us download [...] plan. Millie Wolf APRN.CNP documented in this encounterPremier Health [facility] Center07-25-2022 Miscellaneous Notes* Telephone Encounter - Anthony Davis RN - 12/27/2021 3:04 PM EDT Called PT talked to the she will cancel appointment for Echo on 01/03/22 after talking to Natalie Reeves CNP. Echo is not needed at this time. Pt states she understands. * Telephone Encounter - Tereza Reeves APRN.CNP - 12/27/2021 1:25 PM EDT Patient already had the Echo done in Jul that was ordered by [facility] * Telephone Encounter - Anthony Davis RN - 12/27/2021 1:10 PM EDT Pt is scheduled for 01/03/22 for Echo in [place] at 8 am Pended order for Echo Patient called and [facility] the [facility] was cancelled for 12/27/21. The order was not unlinked, so therefore please add another order for his 01/03/22 appointment in [place] for his echocardiogram. Thank you. * Telephone Encounter - Terezafrench Blair Pss - 12/27/2021 8:28 AM EDT Patient called and states she looked at My[facility] and was surprised the echo was cancelled for 12/27/21. The order was not unlinked, so therefore please add another order for his 01/03/22 appointment in [place] for his echocardiogram. Thank you. documented in this encounterPremier Health [facility] Center06-23-2022 History of Present illness Narrative* Anthony Loredo Jr., MD - 11/25/2021 11:54 AM EDT ESTABLISHED PATIENT VISIT CHIEF COMPLAINT: Follow Up HISTORY OF PRESENT ILLNESS: Lynn Schreiber is a 66 year old male, BMI [...] All prescriptions have been APPROPRIATELY filled. No suspiciousactivity was identified. 10/20/2020 by Billie Maurice APRN.CROSS ENTERPRISE INTEGRATOR Plan: - Continue Auto CPAP - Remember to clean your mask and equipment regularly, as directed. - You should be eligible for new supplies approximately every 3-6 months, depending on your insurance coverage. Contact your [facility] (DME) company for new supplies as needed. - Nonmedical therapy for restless legs syndrome includes : cold/warm compresses, warm/hot baths or showers, gentle massage, mild leg stretching at nighttime, or magnesium supplements ( 250- 1000 mg at nighttime daily). Mentally alerting activities help too. Note the caffeine, alcohol, nicotine, antidepressants, anti-nausea meds and antihistamines can cause or worsen symptoms. See mychart message. - iron studies at next office [...] have let yourself or your family down Notat all Not at all Not at all [...] made it for you to do your work,take care of things at home, or get along with other people? Not difficult at all - - PHQ-9 Score 0 (None-Minimal Depression) 3 (None-Minimal Depression) 0 (None- Minimal Depression) [place] Sleepiness Scale 07/12/2020 10/13/2020 11/24/2021 Score - [...] Capsule Take by mouth once daily. omega 1-hnv-gga-fish oil (FISH OIL) 100-160-1,000 mg cap Take by mouth. ascorbic acid (SUSAN-C ORAL) Take by mouth. levothyroxine (SYNTHROID) 137 mcg tablet Take 1 tablet by mouth once daily. Except none on sundays allopurinol (ZYLOPRIM) 300 mg tablet Take 1 tablet by mouth once daily. Ipratropium Breeding (ATROVENT) 0.03 % nasal spray Use 2 [...] renal function. Follow up in Jun 2021. Anthony Loredo MD I spent a total of 30+ minutes on the date of the service which included preparing to see the patient, [id number] patient care, completing clinical documentation, obtaining and/or reviewing separately obtained history, performing a medically appropriate examination, counseling and educating the pa tient/family/caregiver, ordering medications, tests, or procedures, independently interpreting results (not separately reported) and communicating results to the patient/family/caregiver. PDMP website checked and validated. All prescriptions have been APPROPRIATELY filled. No suspiciousactivity was identified. 11/25/2021 by Anthony Loredo MD documented in this encounterPremier Health [facility] Center06-23-2022 Miscellaneous Notes* Telephone Encounter - Zoraida Jackson LPN - 11/25/2021 11:06 AM EDT Patient has been identified by name and date of : Yes Patient phones for refill(s): Pending Prescriptions Disp Refills IPRATROPIUM BROMIDE 21 MCG (0.03 %) NASAL SPRAY Sig: Use 2 Sprays in the nose every 12 hours. BARBARA: No Date of last office visit in primary care: 08/11/21 Please advise. Thank you. Zoraida Jackson LPN documented in this encounterPremier Health [facility] Center05-31-2022 Miscellaneous Notes* Telephone Encounter - Kelsie Ogden MA - 11/02/2021 10:26 AM EDT I checked the schedule to see if there was anything available. There are no open slots in the next month. Is it ok for patient to wait till already scheduled appointment. Please review pictures and advise patient. Thanks! documented in this encounterPremier Health [facility] Center04-18-2022 Miscellaneous Notes* Telephone Encounter - Marry Hernandez RN - 09/20/2021 9:38 AM EDT Spoke to patient's . Per patient's patient had some tenderness at previous mohs biopsy site over the weekend. Mohs done 12/2012. Per patients there is no visible area of concern. Patientdenies pain at site today. I encourage patient to contact office for appointment if area becomes painful in the future. Patient verbalizes understanding and has no further questions at this time. * Telephone Encounter - Otilia Laura - 09/20/2021 8:16 AM EDT Patient's is calling in stating that the area he had his Mohs procedure done awhile ago was tender to the touch over the weekend. She would like to speak with a Nurse about this; she is not sure what to do. documented in this encounterPremier Health [facility] Center02-03-2020 History of Past illness Narrative* Problem Noted [...] of this encounter (statuses as of 09/20/2021) [facility] of Past illness Narrative* Problem Noted [...] of this encounter (statuses as of 11/16/2021) [facility] of Past illness Narrative* Problem Noted [...] of this encounter (statuses as of 11/25/2021) [facility] of Past illness Narrative* Problem Noted [...] of this encounter (statuses as of 11/25/2021) [facility] of Past illness Narrative* Problem Noted [...] of this encounter (statuses as of 12/27/2021) [facility] of [facility] illness Narrative* Problem Noted [...] of this encounter (statuses as of 01/21/2022) [facility] of [facility] Narrative* Problem Noted [...] of this encounter (statuses as of 03/23/2022) [facility] of [facility] illness Narrative* Problem Noted [...] of this encounter (statuses as of 05/03/2022) [facility] of [facility] illness Narrative* Problem Noted [...] of this encounter (statuses as of 06/13/2022) [facility] Narrative* Problem Noted [...] of this encounter (statuses as of 06/23/2022) [facility] Narrative* Problem Noted [...] of this encounter (statuses as of 07/06/2022) [facility] Narrative* Problem Noted [...] of this encounter (statuses as of 08/02/2022) [facility] Narrative* Problem Noted [...] of this encounter (statuses as of 09/15/2022) [facility] Narrative* Problem Noted [...] of this encounter (statuses as of 09/15/2022) [facility] Narrative* Problem Noted [...] of this encounter (statuses as of 11/02/2022) [facility] Narrative* Problem Noted [...] of this encounter (statuses as of 11/09/2022) [facility] Narrative* Problem Noted [...] of this encounter (statuses as of 11/10/2022) [facility] Narrative* Problem Noted [...] of this encounter (statuses as of 12/12/2022) [facility] Narrative* Problem Noted [...] of this encounter (statuses as of 12/14/2022) [facility] Narrative* Problem Noted [...] of this encounter (statuses as of 01/12/2023) [facility] Narrative* Problem Noted [...] of this encounter (statuses as of 03/03/2023) [facility] Narrative* Problem Noted [...] of this encounter (statuses as of 03/17/2023) [facility] Narrative* Problem Noted [...] of this encounter (statuses as of 04/20/2023) [facility] Narrative* Problem Noted [...] of this encounter (statuses as of 04/26/2023) [facility] Narrative* Problem Noted [...] of this encounter (statuses as of 05/04/2023) [facility] N[facility]* Problem Noted [...] as of this encounter (statuses as of 07/06/2023) [facility] N[facility]* Problem Noted [...] as of this encounter (statuses as of 07/14/2023) [facility] N[facility]* Problem Noted [...] as of this encounter (statuses as of 08/04/2023) [facility] N[facility]* Problem Noted [...] as of this encounter (statuses as of 08/22/2023) [facility] N[facility]* Problem Noted [...] as of this encounter (statuses as of 09/19/2023) [facility] Narrative* Problem Noted [...] as of this encounter (statuses as of 09/19/2023) [facility] Narrative* Problem Noted [...] as of this encounter (statuses as of 09/22/2023) [facility] Diagnosis MAXIMILIAN (obstructive sleep apnea)- Primary Obstructive sleep apnea (adult) (pediatric) Restless legs syndrome Restless legs syndrome (RLS) [facility] Diagnosis Mild left ventricular systolic dysfunction- Primary Heart disease, unspecified Sinus bradycardia Other specified cardiac dysrhythmias Ascending aorta dilatation (HCC) Thoracic aortic ectasia Mild pulmonary hypertension (HCC) Other chronic pulmonary heart diseases [facility]* Diagnosis At increased risk of exposure to COVID-19 virus- Primary Acute upper respiratory infection, unspecified [facility]* Diagnosis Gout with manifestations Gout with other specified manifestations [facility]* Diagnosis Obstructive sleep apnea (adult) (pediatric)- Primary Restless legs syndrome Restless legs syndrome (RLS) [facility]* Diagnosis Elevated PSA- Primary Elevated prostate specific antigen (PSA) [facility]* Diagnosis Post-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 Obesity, Class II, BMI 35-39.9 Obesity, unspecified [facility]* Diagnosis Gout with manifestations Gout with other specified manifestations [facility]* Diagnosis Sinus bradycardia- Primary Other [...] mitral valve regurgitation [facility]* Diagnosis Essential hypertension- Primary Unspecified essential hypertension [facility]* Diagnosis Gout with manifestations Gout with other specified manifestations [facility]* Diagnosis Acute gout of left ankle, unspecified cause- Primary Acute left ankle pain [facility]* Diagnosis MAXIMILIAN (obstructive sleep apnea)- Primary Obstructive sleep apnea (adult) (pediatric) Restless legs syndrome Restless legs syndrome (RLS) Class 2 obesity with body mass index (BMI) of 35.0 to 35.9 in adult, unspecified obesity type, unspecified whether serious comorbidity present documented in this encounter [facility]* Diagnosis Aneurysm of ascending aorta without [...] neoplasm of prostate documented in this encounter [facility]* Diagnosis Actinic keratosis- Primary Notalgia paresthetica Disturbance of skin sensation Inflamed seborrheic keratosis [facility] Diagnosis Mild left ventricular systolic dysfunction- Primary Heart disease, unspecified Essential hypertension Unspecified essential hypertension Mixed hyperlipidemia Ascending aorta dilatation (HCC) Thoracic aortic ectasia MAXIMILIAN (obstructive sleep apnea) Obstructive sleep apnea (adult) (pediatric) Nonrheumatic mitral valve regurgitation documented in this encounter [facility]* Diagnosis Actinic keratosis- Primary documented in this encounter [facility] noteNo assessment information availableWFulton [facility] Work Phone: Evaluation note* Diagnosis Seborrheic dermatitis- Primary Seborrheic dermatitis, unspecified Seborrheic keratosis Other seborrheic keratosis Inflamed seborrheic keratosis [place] (actinic keratosis) Actinic keratosis documented in this encounter [facility]* Diagnosis Kidney stones- Primary Calculus of kidney documented in this encounter [facility]* Diagnosis Left wrist tendonitis- Primary [facility]* Diagnosis 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)- Primary Mixed hyperlipidemia Essential hypertension Unspecified essential hypertension documented in this encounter [facility]* Diagnosis Acute cough- Primary documented in this encounter [facility]* Diagnosis Onset Date Resolution Status Acute left flank pain acute Ureterolithiasis acute [facility] Work Phone: Evaluation note* Diagnosis Neoplasm of unspecified behavior of bone, soft tissue, and skin- Primary Seborrheic keratosis Other seborrheic keratosis Hx of nonmelanoma skin cancer Personal history of other malignant neoplasm of skin [facility]* Diagnosis Basal cell carcinoma (BCC) of skin of nose [facility]* Diagnosis Basal cell carcinoma (BCC) of skin of nose- Primary [facility]* Diagnosis MAXIMILIAN on CPAP- Primary Obstructive sleep apnea (adult) (pediatric) Restless legs syndrome Restless legs syndrome (RLS) [facility]* Diagnosis Basal cell carcinoma (BCC) of skin of nose- Primary [facility]* Diagnosis Sinobronchitis- Primary Unspecified sinusitis (chronic) [facility]* Diagnosis Neoplasm of unspecified behavior of bone, soft tissue, and skin- Primary Seborrheic dermatitis Seborrheic dermatitis, unspecified [facility]* Diagnosis Post-surgical hypothyroidism- Primary Post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 [facility]* Diagnosis Folliculitis- Primary Other specified disease of hair and hair follicles Rash Rash and other nonspecific skin eruption [facility]* Diagnosis Scar- Primary Scar condition and fibrosis of skin [place] (actinic keratosis) Actinic keratosis [facility]* Diagnosis Post-surgical hypothyroidism- Primary Post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 Obesity, Class II, BMI 35-39.9 Obesity, unspecified [facility] Diagnosis Essential hypertension- Primary Unspecified essential hypertension 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) MAXIMILIAN (obstructive sleep apnea) Obstructive sleep apnea (adult) (pediatric) Mixed hyperlipidemia Folliculitis Other specified disease of hair and hair follicles [facility] Diagnosis Chemical dermatitis- Primary Contact dermatitis and other eczema due to other chemical products [facility] Diagnosis Acute cough- Primary Acute non-recurrent sinusitis, unspecified location [facility] Diagnosis Restless legs syndrome Restless legs syndrome (RLS) [facility] Diagnosis Mild left ventricular systolic dysfunction- Primary Heart disease, unspecified 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) Essential hypertension Unspecified essential hypertension Mixed hyperlipidemia Nonrheumatic mitral valve regurgitation MAXIMILIAN (obstructive sleep apnea) Obstructive sleep apnea (adult) (pediatric) [facility] Diagnosis MAXIMILIAN on CPAP- Primary Obstructive sleep apnea (adult) (pediatric) Obesity, Class II, BMI 35-39.9 Obesity, unspecified Restless legs syndrome Restless legs syndrome (RLS) Nocturia Peripheral vertigo involving left ear [facility] Diagnosis Hammer toe of left foot- Primary Neuropathy Mononeuritis of unspecified site [facility] Diagnosis Hammer toe of left foot [facility] Diagnosis Gout with manifestations Gout with other specified manifestations [facility] Diagnosis Post-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 Obesity, Class II, BMI 35-39.9 Obesity, unspecified [facility] Diagnosis Pain in both knees, unspecified chronicity- Primary [facility] Diagnosis Primary osteoarthritis of right knee Primary localized osteoarthrosis, lower leg [facility] Diagnosis Pain in both knees, unspecified chronicity [facility] Diagnosis Restless legs syndrome- Primary Restless legs syndrome (RLS) Post-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 Obesity, Class II, BMI 35-39.9 Obesity, unspecified Mixed hyperlipidemia Sinus bradycardia Other specified cardiac dysrhythmias Aneurysm of ascending aorta without rupture MAXIMILIAN (obstructive sleep apnea) Obstructive sleep apnea (adult) (pediatric) Essential hypertension Unspecified essential hypertension 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, unspecified chronicity, unspecified laterality Screening for prostate cancer Special screening for malignant neoplasm of prostate Screening for diabetes mellitus Screening for depression Encounter for screening examination for other mental health and behavioral disorders [facility] Diagnosis Seborrheic dermatitis- Primary Seborrheic dermatitis, unspecified [facility] Additional Instructions Follow-up with your urologist on Monday.[facility] Work Phone: Hospital Discharge instructions Additional Instructions Implant Used?: [facility] Phone: Reason for referral (narrative)* Outpatient Procedure (Routine) - Authorized Specialty Diagnoses / Procedures Referred By Contac t Referred To [facility] Diagnoses Ascending aorta dilatation (HCC) 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) Procedures ECHO ECHO TTHRC R-T 2D W/WOM-MODE COMPL SPEC&COLR Ashley Vences APRN.[employer] ENTER[employer]ISE INTEGRATOR [address] [place] [address] [facility] [address] [address] Referral ID Status Reason Start Date Expiration Date Visits Requested Visits Authorized [id number] Authorized Auto-Generat ed Referral 09/14/2022 09/14/2023 1 1 [facility] Diagnostic Procedure Only (Routine) - Authorized Specialty Diagnoses / Procedures Referred By Contac t Referred To Contact XR IMAGING Diagnoses Kidney stones Procedures XR ABDOMEN 1V SUPINE RADIOLOGIC EXAM ABDOMEN 1 VIEW Vika Sotelo Jr., MD [address] [place] [address] [place] [id number] Referral ID Status Reason Start Date Expiration Date Visits Requested Visits Authorized [id number] Authorized Auto-Generat ed Referral 08/21/2024 09/20/2024 1 1 [facility] for referral (narrative)* Outpatient Procedure (Routine) - Authorized Specialty Diagnoses / Procedures Referred By Contac t Referred To Contact [facility] Diagnoses 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) Procedures ECHO ECHO TTHRC R-T 2D W/WOM-MODE COMPL SPEC&COLR Jessica Montgomery APRN.CROSS ENTERPRISE INTEGRATOR [address] [place] [address] [facility] [address] [address] Referral ID Status Reason Start Date Expiration Date Visits Requested Visits Authorized [id number] Authorized Auto-Generat ed Referral 09/15/2023 09/14/2024 1 1 [facility] for referral (narrative)* Outpatient Procedure (Routine) - New Request Specialty Diagnoses / Procedures Referred By Contac t Referred To [facility] Diagnoses Mild left ventricular systolic dysfunction 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) Essential hypertension Mixed hyperlipidemia Nonrheumatic mitral valve regurgitation MAXIMILIAN (obstructive sleep apnea) Procedures ECHO ECHO TTHRC R-T 2D W/WOM-MODE COMPL SPEC&COLR Caroline Lujan DO [address] [place] [address] [facility] [address] [address] Referral ID Status Reason Start Date Expiration Date Visits Requested Visits Authorized [id number] New Request Auto-Generat ed Referral 12/04/2024 06/06/2025 1 1 [facility] for referral (narrative)* Diagnostic Procedure Only (Routine) - Closed Specialty Diagnoses / Procedures Referred By Contac t Referred To Contact XR IMAGING Diagnoses Hammer toe of left foot Procedures XR FOOT GENERAL 3V AP/LAT/OBL LEFT RADEX FOOT COMPLETE MINIMUM 3 VIEWS Harlan Pabon [address] [address] [place] [id number] Referral ID Status Reason Start Date Expiration Date V isits Requested Visits Authorized [id number] Closed Auto-Generate d Referral 07/01/2024 07/31/2025 1 1 [facility] for visit Narrative* Diagnostic Procedure Only (Routine) - Closed Specialty Diagnoses / Procedures Referred By Contac t Referred To Contact XR IMAGING Diagnoses Hammer toe of left foot Procedures XR FOOT GENERAL 3V AP/LAT/OBL LEFT RADEX FOOT COMPLETE MINIMUM 3 VIEWS Harlan Pabon [address] [address] [place] [address] Referral ID Status Reason Start Date Expiration Date V isits Requested Visits Authorized [id number] Closed Auto-Generate d Referral 07/01/2024 07/31/2025 1 1 [facility] for visit Narrative* Diagnostic Procedure Only (Routine) - Closed Specialty Diagnoses / Procedures Referred By Contac t Referred To Contact XR IMAGING Diagnoses Pain in both knees, unspecified chronicity Procedures XR KNEE GENERAL 4V AP BOTH/PA BOTH/LAT/MERC BILATERAL RADIOLOGIC EXAM KNEE COMPLETE 4/MORE VIEWS [place] [place] [address] Phone: tel: [place] [id number] Referral ID Status Reason Start Date Expiration Date V isits Requested Visits Authorized [id number] Closed Auto-Generate d Referral 10/04/2024 11/03/2025 1 1 [facility] Concerns Infection Onset Date Last Indicated [...] Given 04/20/2023 10:45 AM EST 1 Each Chief Complaint and Reason for Visit Chief Complaint ABD Chief Complaint ABD abd pain Chief Complaint ABD abd pain kidney stone Chief Complaint ABD abd pain kidney stone kidney stone Reason for Visit Acute left flank sophie n Ureterolithiasis Chief Complaint ABD abd pain kidney stone LEFT FLANK PAIN LEFT CALCULI Reason for Visit Acute left flank sophie n Ureterolithiasis Advance Directives No Advanced Directives Records Found Advance Directive Response Recorded Date/ Time Living Will No June 27 11:35am Power of Circuit Walker No June 27, 2023 11:35am Advance Directive Response Recorded Date/ Time Living Will Yes June 28 8:22pm Power of Circuit Walker No June 28, 2023 8:22pm Advance Directive Response Recorded Date/ Time Living Will No October 14, 2023 4 :56am Power of Circuit Walker No October 14, 2023 4:56am Advance Directive Response Recorded Date/ Time Living Will No October 15, 2023 1 2:49am Power of Circuit Walker No October 15, 2023 12:49am Advance Directive Response Recorded Date/ Time Name of Medical Power of Circuit Walker PATRICIA SCHREIBER October 15, 2023 5:47am Living Will Yes October 15, 2023 5 :47am Power of Circuit Walker Yes October 15, 2023 5:47am Reason for Referral Specialty Diagnoses / Procedures Referred By Viry t Referred To Contact Dermatology Diagnoses Basal cell carcinoma (BCC) of skin of nose Procedures MOHS OFFICE/OUTPATIENT [facility] 60 MINUTES 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, 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 [address] [place] [address] Referral ID Status Reason Start Date Expiration Date V isits Requested Visits Authorized [id number] Closed PCP Requested Referral 11/07/2023 11/06/2024 1 1 Specialty Diagnoses / Procedures Referred By Viry santamaria Referred To Contact [facility] Diagnoses Peripheral vertigo involving left ear Procedures CONSULT TO PHYSICAL THERAPY PHYSICAL THERAPY EVALUATION HIGH COMPLEX 45 MINS Anthony Loredo Jr., MD [address] [place] [address] [facility] [address] [address] Referral ID Status Reason Start Date Expiration Date Visits Requested Visits Authorized [id number] Authorized PCP Requested Referral Auto-Generate d Referral 07/01/2024 07/01/2025 99 99 Summary Purpose Family History No Family History Records FoundNo Family History Records Found Additional Source Comments Source Comments (unrecognize d section and content) In the event this informatio n is protected by the Federal Confidentiality of Alcohol and Drug Abuse Patient Records regulations: The Federal rules restrict any use of the information to criminally investigate or prosecute any alcohol or drug abuse patient.[facility] the event this information is protected by the Federal Confidentiality of Alcohol and Drug Abuse Patient Records regulations: The Federal rules restrict any use of the information to criminally investigate or prosecute any alcohol or drug abuse patient.[facility] the event this information is protected by the Federal Confidentiality of Alcohol and Drug Abuse Patient Records regulations: The Federal rules restrict any use of the information to criminally investigate or prosecute any alcohol or drug abuse patient.[facility] the event this information is protected by the Federal Confidentiality of Alcohol and Drug Abuse Patient Records regulations: The Federal rules restrict any use of the information to criminally investigate or prosecute any alcohol or drug abuse patient.[facility] the event this information is protected by the Federal Confidentiality of Alcohol and Drug Abuse Patient Records regulations: The Federal rules restrict any use of the information to criminally investigate or prosecute any alcohol or drug abuse patient.[facility] the event this information is protected by the Federal Confidentiality of Alcohol and Drug Abuse Patient Records regulations: The Federal rules restrict any use of the information to criminally investigate or prosecute any alcohol or drug abuse patient.[facility] the event this information is protected by the Federal Confidentiality of Alcohol and Drug Abuse Patient Records regulations: The Federal rules restrict any use of the information to criminally investigate or prosecute any alcohol or drug abuse patient.[facility] the event this information is protected by the Federal Confidentiality of Alcohol and Drug Abuse Patient Records regulations: The Federal rules restrict any use of the information to criminally investigate or prosecute any alcohol or drug abuse patient.[facility] the event this information is protected by the Federal Confidentiality of Alcohol and Drug Abuse Patient Records regulations: The Federal rules restrict any use of the information to criminally investigate or prosecute any alcohol or drug abuse patient.[facility] Center[facility] the event this information is protected by the Federal Confidentiality of Alcohol and Drug Abuse Patient Records regulations: The Federal rules restrict any use of the information to criminally investigate or prosecute any alcohol or drug abuse patient.[facility] the event this information is protected by the Federal Confidentiality of Alcohol and Drug Abuse Patient Records regulations: The Federal rules restrict any use of the information to criminally investigate or prosecute any alcohol or drug abuse patient.[facility] the event this information is protected by the Federal Confidentiality of Alcohol and Drug Abuse Patient Records regulations: The Federal rules restrict any use of the information to criminally investigate or prosecute any alcohol or drug abuse patient.[facility] the event this information is protected by the Federal Confidentiality of Alcohol and Drug Abuse Patient Records regulations: The Federal rules restrict any use of the information to criminally investigate or prosecute any alcohol or drug abuse patient.[facility] the event this information is protected by the Federal Confidentiality of Alcohol and Drug Abuse Patient Records regulations: The Federal rules restrict any use of the information to criminally investigate or prosecute any alcohol or drug abuse patient.[facility] the event this information is protected by the Federal Confidentiality of Alcohol and Drug Abuse Patient Records regulations: The Federal rules restrict any use of the information to criminally investigate or prosecute any alcohol or drug abuse patient.[facility] the event this information is protected by the Federal Confidentiality of Alcohol and Drug Abuse Patient Records regulations: The Federal rules restrict any use of the information to criminally investigate or prosecute any alcohol or drug abuse patient.[facility] the event this information is protected by the Federal Confidentiality of Alcohol and Drug Abuse Patient Records regulations: The Federal rules restrict any use of the information to criminally investigate or prosecute any alcohol or drug abuse patient.[facility] the event this information is protected by the Federal Confidentiality of Alcohol and Drug Abuse Patient Records regulations: The Federal rules restrict any use of the information to criminally investigate or prosecute any alcohol or drug abuse patient.[facility] CenterIn the event this information is protected by the Federal Confidentiality of Alcohol and Drug Abuse Patient Records regulations: The Federal rules restrict any use of the information to criminally investigate or prosecute any alcohol or drug abuse patient.[facility]In the event this information is protected by the Federal Confidentiality of Alcohol and Drug Abuse Patient Records regulations: The Federal rules restrict any use of the information to criminally investigate or prosecute any alcohol or drug abuse patient.[facility] the event this information is protected by the Federal Confidentiality of Alcohol and Drug Abuse Patient Records regulations: The Federal rules restrict any use of the information to criminally investigate or prosecute any alcohol or drug abuse patient.[facility] the event this information is protected by the Federal Confidentiality of Alcohol and Drug Abuse Patient Records regulations: The Federal rules restrict any use of the information to criminally investigate or prosecute any alcohol or drug abuse patient.[facility] the event this information is protected by the Federal Confidentiality of Alcohol and Drug Abuse Patient Records regulations: The Federal rules restrict any use of the information to criminally investigate or prosecute any alcohol or drug abuse patient.[facility] the event this information is protected by the Federal Confidentiality of Alcohol and Drug Abuse Patient Records regulations: The Federal rules restrict any use of the information to criminally investigate or prosecute any alcohol or drug abuse patient.[facility]In the event this information is protected by the Federal Confidentiality of Alcohol and Drug Abuse Patient Records regulations: The Federal rules restrict any use of the information to criminally investigate or prosecute any alcohol or drug abuse patient.[facility] the event this information is protected by the Federal Confidentiality of Alcohol and Drug Abuse Patient Records regulations: The Federal rules restrict any use of the information to criminally investigate or prosecute any alcohol or drug abuse patient.[facility] the event this information is protected by the Federal Confidentiality of Alcohol and Drug Abuse Patient Records regulations: The Federal rules restrict any use of the information to criminally investigate or prosecute any alcohol or drug abuse patient.[facility] the event this information is protected by the Federal Confidentiality of Alcohol and Drug Abuse Patient Records regulations: The Federal rules restrict any use of the information to criminally investigate or prosecute any alcohol or drug abuse patient.[facility] the event this information is protected by the Federal Confidentiality of Alcohol and Drug Abuse Patient Records regulations: The Federal rules restrict any use of the information to criminally investigate or prosecute any alcohol or drug abuse patient.[facility] CenterIn the event this information is protected by the Federal Confidentiality of Alcohol and Drug Abuse Patient Records regulations: The Federal rules restrict any use of the information to criminally investigate or prosecute any alcohol or drug abuse patient.[facility] CenterIn the event this information is protected by the Federal Confidentiality of Alcohol and Drug Abuse Patient Records regulations: The Federal rules restrict any use of the information to criminally investigate or prosecute any alcohol or drug abuse patient.[facility]In the event this information is protected by the Federal Confidentiality of Alcohol and Drug Abuse Patient Records regulations: The Federal rules restrict any use of the information to criminally investigate or prosecute any alcohol or drug abuse patient.[facility]In the event this information is protected by the Federal Confidentiality of Alcohol and Drug Abuse Patient Records regulations: The Federal rules restrict any use of the information to criminally investigate or prosecute any alcohol or drug abuse patient.[facility]In the event this information is protected by the Federal Confidentiality of Alcohol and Drug Abuse Patient Records regulations: The Federal rules restrict any use of the information to criminally investigate or prosecute any alcohol or drug abuse patient.[facility] CenterIn the event this information is protected by the Federal Confidentiality of Alcohol and Drug Abuse Patient Records regulations: The Federal rules restrict any use of the information to criminally investigate or prosecute any alcohol or drug abuse patient.[facility]In the event this information is protected by the Federal Confidentiality of Alcohol and Drug Abuse Patient Records regulations: The Federal rules restrict any use of the information to criminally investigate or prosecute any alcohol or drug abuse patient.[facility]In the event this information is protected by the Federal Confidentiality of Alcohol and Drug Abuse Patient Records regulations: The Federal rules restrict any use of the information to criminally investigate or prosecute any alcohol or drug abuse patient.[facility]In the event this information is protected by the Federal Confidentiality of Alcohol and Drug Abuse Patient Records regulations: The Federal rules restrict any use of the information to criminally investigate or prosecute any alcohol or drug abuse patient.[facility]In the event this information is protected by the Federal Confidentiality of Alcohol and Drug Abuse Patient Records regulations: The Federal rules restrict any use of the information to criminally investigate or prosecute any alcohol or drug abuse patient.[facility]In the event this information is protected by the Federal Confidentiality of Alcohol and Drug Abuse Patient Records regulations: The Federal rules restrict any use of the information to criminally investigate or prosecute any alcohol or drug abuse patient.[facility]In the event this information is protected by the Federal Confidentiality of Alcohol and Drug Abuse Patient Records regulations: The Federal rules restrict any use of the information to criminally investigate or prosecute any alcohol or drug abuse patient.[facility] CenterIn the event this information is protected by the Federal Confidentiality of Alcohol and Drug Abuse Patient Records regulations: The Federal rules restrict any use of the information to criminally investigate or prosecute any alcohol or drug abuse patient.[facility]In the event this information is protected by the Federal Confidentiality of Alcohol and Drug Abuse Patient Records regulations: The Federal rules restrict any use of the information to criminally investigate or prosecute any alcohol or drug abuse patient.[facility]In the event this information is protected by the Federal Confidentiality of Alcohol and Drug Abuse Patient Records regulations: The Federal rules restrict any use of the information to criminally investigate or prosecute any alcohol or drug abuse patient.[facility] CenterIn the event this information is protected by the Federal Confidentiality of Alcohol and Drug Abuse Patient Records regulations: The Federal rules restrict any use of the information to criminally investigate or prosecute any alcohol or drug abuse patient.[facility] CenterIn the event this information is protected by the Federal Confidentiality of Alcohol and Drug Abuse Patient Records regulations: The Federal rules restrict any use of the information to criminally investigate or prosecute any alcohol or drug abuse patient.[facility] CenterIn the event this information is protected by the Federal Confidentiality of Alcohol and Drug Abuse Patient Records regulations: The Federal rules restrict any use of the information to criminally investigate or prosecute any alcohol or drug abuse patient.[facility] CenterIn the event this information is protected by the Federal Confidentiality of Alcohol and Drug Abuse Patient Records regulations: The Federal rules restrict any use of the information to criminally investigate or prosecute any alcohol or drug abuse patient.[facility] CenterIn the event this information is protected by the Federal Confidentiality of Alcohol and Drug Abuse Patient Records regulations: The Federal rules restrict any use of the information to criminally investigate or prosecute any alcohol or drug abuse patient.[facility] CenterIn the event this information is protected by the Federal Confidentiality of Alcohol and Drug Abuse Patient Records regulations: The Federal rules restrict any use of the information to criminally investigate or prosecute any alcohol or drug abuse patient.[facility] CenterIn the event this information is protected by the Federal Confidentiality of Alcohol and Drug Abuse Patient Records regulations: The Federal rules restrict any use of the information to criminally investigate or prosecute any alcohol or drug abuse patient.[facility] CenterIn the event this information is protected by the Federal Confidentiality of Alcohol and Drug Abuse Patient Records regulations: The Federal rules restrict any use of the information to criminally investigate or prosecute any alcohol or drug abuse patient.[facility] CenterIn the event this information is protected by the Federal Confidentiality of Alcohol and Drug Abuse Patient Records regulations: The Federal rules restrict any use of the information to criminally investigate or prosecute any alcohol or drug abuse patient.[facility] CenterIn the event this information is protected by the Federal Confidentiality of Alcohol and Drug Abuse Patient Records regulations: The Federal rules restrict any use of the information to criminally investigate or prosecute any alcohol or drug abuse patient.[facility] CenterIn the event this information is protected by the Federal Confidentiality of Alcohol and Drug Abuse Patient Records regulations: The Federal rules restrict any use of the information to criminally investigate or prosecute any alcohol or drug abuse patient.[facility] CenterIn the event this information is protected by the Federal Confidentiality of Alcohol and Drug Abuse Patient Records regulations: The Federal rules restrict any use of the information to criminally investigate or prosecute any alcohol or drug abuse patient.[facility] CenterIn the event this information is protected by the Federal Confidentiality of Alcohol and Drug Abuse Patient Records regulations: The Federal rules restrict any use of the information to criminally investigate or prosecute any alcohol or drug abuse patient.[facility] CenterIn the event this information is protected by the Federal Confidentiality of Alcohol and Drug Abuse Patient Records regulations: The Federal rules restrict any use of the information to criminally investigate or prosecute any alcohol or drug abuse patient.[facility] CenterIn the event this information is protected by the Federal Confidentiality of Alcohol and Drug Abuse Patient Records regulations: The Federal rules restrict any use of the information to criminally investigate or prosecute any alcohol or drug abuse patient.[facility] CenterIn the event this information is protected by the Federal Confidentiality of Alcohol and Drug Abuse Patient Records regulations: The Federal rules restrict any use of the information to criminally investigate or prosecute any alcohol or drug abuse patient.[facility] CenterIn the event this information is protected by the Federal Confidentiality of Alcohol and Drug Abuse Patient Records regulations: The Federal rules restrict any use of the information to criminally investigate or prosecute any alcohol or drug abuse patient.[facility] CenterIn the event this information is protected by the Federal Confidentiality of Alcohol and Drug Abuse Patient Records regulations: The Federal rules restrict any use of the information to criminally investigate or prosecute any alcohol or drug abuse patient.[facility] CenterIn the event this information is protected by the Federal Confidentiality of Alcohol and Drug Abuse Patient Records regulations: The Federal rules restrict any use of the information to criminally investigate or prosecute any alcohol or drug abuse patient.[facility] CenterIn the event this information is protected by the Federal Confidentiality of Alcohol and Drug Abuse Patient Records regulations: The Federal rules restrict any use of the information to criminally investigate or prosecute any alcohol or drug abuse patient.[facility] CenterIn the event this information is protected by the Federal Confidentiality of Alcohol and Drug Abuse Patient Records regulations: The Federal rules restrict any use of the information to criminally investigate or prosecute any alcohol or drug abuse patient.[facility] CenterIn the event this information is protected by the Federal Confidentiality of Alcohol and Drug Abuse Patient Records regulations: The Federal rules restrict any use of the information to criminally investigate or prosecute any alcohol or drug abuse patient.[facility] CenterIn the event this information is protected by the Federal Confidentiality of Alcohol and Drug Abuse Patient Records regulations: The Federal rules restrict any use of the information to criminally investigate or prosecute any alcohol or drug abuse patient.[facility] CenterIn the event this information is protected by the Federal Confidentiality of Alcohol and Drug Abuse Patient Records regulations: The Federal rules restrict any use of the information to criminally investigate or prosecute any alcohol or drug abuse patient.[facility] CenterIn the event this information is protected by the Federal Confidentiality of Alcohol and Drug Abuse Patient Records regulations: The Federal rules restrict any use of the information to criminally investigate or prosecute any alcohol or drug abuse patient.[facility] Reason for Visit (unrecogniz ed section and content) Reason Comments Mohs Specialty Diagnoses / Procedures Referred By Contac t Referred To Contact Dermatology Diagnoses Basal cell carcinoma (BCC) of skin of nose Procedures MOHS OFFICE/OUTPATIENT NEW HIGH MDM 60 MINUTES 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, 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 [address] [place] [address] Referral ID Status Reason Start Date Expiration Date V isits Requested Visits Authorized [id number] Closed PCP Requested Referral 11/07/2023 11/06/2024 1 1 Reason Comments Established Patient follow up sleep [...] Treatments Reason Comments Patient Question Aflac forms Reason Comments Localized Skin Check Reason Comments Appointment Reason Comments Kidney Stones Reason Comments Pain in left wrist Reason Comments Wrist Pain Reason Comments Follow Up EKG today Reason Comments Cough Congestion and heada jeison x1 week Reason Comments PAP Therapy Follow Up Reason Comments Suture Removal Reason Comments Results Reason Comments Sinus Problem sinus pressure, drai nage, cough x 3 days Reason Comments Rash Chest x3 days Reason Comments Thyroid Cancer Reason Comments Derm Problem Reason Comments Insurance Authorization Reason Comments Cough Congestion, head pre ssure x 1 week Reason Onset Date Comments Refill Request 05/16/2024 Reason Comments Follow Up Room 106 mo f/u Reason Comments Follow Up Reason Comments Established Patient Pain Numbness Numbness/Tingling Reason Onset Date Comments Refill Request 07/21/2024 Reason Onset Date Comments Refill Request 08/02/2024 Reason Onset Date Comments Refill Request 08/18/2024 Reason Onset Date Comments Population Health Navigation Outreach 09/12/2024 Diane/Workbench/ACO Reason Comments Bilateral Knee Pain Reason Comments Dermatitis Reason Comments Orders See note Care Teams (unrecognized sec tion and content) Home Appliance Tech Relationship Specialty Start Date End Date Bandar Graf PA-C [address] [place] [address] PCP - General Family Practice 07/09/18 Caroline El DO [address] [place] [address] Heel Scourer Cardiology 07/06/21 Home Appliance Tech Relationship Specialty Start Date End Date Bandar Graf PA-C [address] [place] [address] PCP - General Family Practice 07/09/18 Caroline El DO [address] [place] [address] Heel Scourer Cardiology 07/06/21 Home Appliance Tech Relationship Specialty Start Date End Date Bandar Graf PA-C [address] [place] [address] PCP - General Family Practice 07/09/18 Caroline El DO [address] [place] [address] Heel Scourer Cardiology 07/06/21 Home Appliance Tech Relationship Specialty Start Date End Date Bandar Graf PA-C [address] [place] [address] PCP - General Family Practice 07/09/18 Caroline El DO [address] [place] [address] Heel Scourer Cardiology 07/06/21 Home Appliance Tech Relationship Specialty Start Date End Date Bandar Graf PA-C [address] [place] [address] PCP - General Family Medicine 07/09/18 Caroline El DO [address] [place] [address] Heel Scourer Cardiology 07/06/21 Home Appliance Tech Relationship Specialty Start Date End Date Bandar Graf PA-C [address] [place] [address] PCP - General Family Medicine 07/09/18 Caroline El DO [address] [place] [address] Heel Scourer Cardiology 07/06/21 Home Appliance Tech Relationship Specialty Start Date End Date Bandar Graf PA-C [address] [place] [address] PCP - General Family Medicine 07/09/[address] [facility] [place] [address] Heel Scourer Cardiology 07/06/21 Home Appliance Tech Relationship Specialty Start Date End Date Bandar Graf PA-C [address] [place] [address] PCP - General Family Medicine 07/09/[address] [facility] [place] [address] Heel Scourer Cardiology 07/06/21 Home Appliance Tech Relationship Specialty Start Date End Date Bandar Graf PA-C [address] [place] [address] PCP - General Family Medicine 07/09/18 Caroline El [address] [place] [address] Heel Scourer Cardiology 07/06/21 Home Appliance Tech Relationship Specialty Start Date End Date Bandar Graf PA-C [address] [place] [address] PCP - General Family Medicine 07/09/18 Caroline El DO [address] [place] [address] Heel Scourer Cardiology 07/06/21 Home Appliance Tech Relationship Specialty Start Date End Date Bandar Graf PA-C [address] [place] [address] PCP - General Family Medicine 07/09/18 Caroline El, [facility] [place] [address] Heel Scourer Cardiology 07/06/21 Home Appliance Tech Relationship Specialty Start Date End Date Bandar Graf PA-C [address] [place] [address] PCP - General Family Medicine 07/09/[address] [facility] [address] Heel Scourer Cardiology 07/06/21 Home Appliance Tech Relationship Specialty Start Date End Date Bandar Graf PA-C [address] [place] [address] PCP - General Family Medicine 07/09/18 Caroline El, [facility] [place] [address] Heel Scourer Cardiology 07/06/21 Home Appliance Tech Relationship Specialty Start Date End Date Bandar Garf PA-C [address] [place] [address] PCP - General Family Medicine 07/09/[address] [facility] [address] Heel Scourer Cardiology 07/06/21 Home Appliance Tech Relationship Specialty Start Date End Date Bandar Graf PA-C [address] [place] [address] PCP - General Family Medicine 07/09/18 Caroline El DO [address] [place] [address] Heel Scourer Cardiology 07/06/21 Home Appliance Tech Relationship Specialty Start Date End Date Bandar Graf PA-C [address] [place] [address] PCP - General Family Medicine 07/09/18 Caroline El DO [facility] [place] [address] Heel Scourer Cardiology 07/06/21 Home Appliance Tech Relationship Specialty Start Date End Date Bandar Graf PA-C [address] [place] [address] PCP - General Family Medicine 07/09/18 Caroline El DO [facility] [place] [address] Heel Scourer Cardiology 07/06/21 Home Appliance Tech Relationship Specialty Start Date End Date Bandar Graf PA-C [address] [place] [address] PCP - General Family Medicine 07/09/18 aCroline El DO [address] [place] [address] Heel Scourer Cardiology 07/06/21 Home Appliance Tech Relationship Specialty Start Date End Date Bandar Graf PA-C [address] [place] [address] PCP - General Family Medicine 07/09/18 Caroline El DO [address] [place] [address] Heel Scourer Cardiology 07/06/21 Home Appliance Tech Relationship Specialty Start Date End Date Bandar Graf PA-C [address] [place] [address] PCP - General Family Medicine 07/09/18 Caroline El DO [address] [place] [id number] Heel Scourer Cardiology 07/06/21 Team Status: Active Member Role Status Dates Dr. Anthony Solano MD Family Provider Active Dr. Anthony Solano MD Primary Care Provider Active Team Status: Inactive Member Role Status Dates Dr. Anthony Solano MD Primary Care Provider Active Dr. Farooq Simmons DO Referring Provider, Emergency Pro vider Active Team Status: Inactive Member Role Status Dates Dr. Anthony Solano MD Primary Care Provider Active Dr. Jessica Mendoza MD Emergency Provider Active Home Appliance Tech Relationship Specialty Start Date End Date Bandar Graf PA-C [address] [place] [address] PCP - General Family Medicine 07/09/18 Caroline El DO [address] [place] [address] Heel Scourer Cardiology 07/06/21 Home Appliance Tech Relationship Specialty Start Date End Date Bandar Graf PA-C [address] [place] [address] PCP - General Family Medicine 07/09/18 Caroline El DO [address] [place] [address] Heel Scourer Cardiology 07/06/21 Home Appliance Tech Relationship Specialty Start Date End Date Bandar Graf PA-C [address] [place] [address] PCP - General Family Medicine 07/09/18 Caroline El DO [address] [place] [address] Heel Scourer Cardiology 07/06/21 Home Appliance Tech Relationship Specialty Start Date End Date Bandar Graf PA-C [address] [place] [address] PCP - General Family Medicine 07/09/18 Caroline El DO [address] [place] [address] Heel Scourer Cardiology 07/06/21 Home Appliance Tech Relationship Specialty Start Date End Date Bandar Graf PA-C [address] [place] [address] PCP - General Family Medicine 07/09/18 Caroline El DO [address] [place] [address] Heel Scourer Cardiology 07/06/21 Home Appliance Tech Relationship Specialty Start Date End Date Bandar Graf PA-C [address] [place] [address] PCP - General Family Medicine 07/09/18 Caroline El DO [address] [place] [address] Heel Scourer Cardiology 07/06/21 Home Appliance Tech Relationship Specialty Start Date End Date Bandar Graf PA-C [address] [place] [address] PCP - General Family Medicine 07/09/18 Caroline El DO [address] [place] [address] Heel Scourer Cardiology 07/06/21 Team Status: Inactive Member Role Status Dates Dr. Anthony Solano MD Primary Care Provider Active Dr. Farooq Simmons DO Attending Provider, Referring Provider, Emergency Provider Active Team Status: Inactive Member Role Status Dates Dr. Anthony Solano MD Primary Care Provider Active Dr. Jessica Mendoza MD Attending Provider, Emergency Provider Active Team Status: Active Member Role Status Dates Dr. Anthony Solano MD Primary Care Provider Active Dr. Heron Rodriguez DO Emergency Provider Active Dr. Shaun Lynch DO Admit Provider, Attending Pr ovider Active Team Status: Inactive Member Role Status Dates Dr. Anthony Solano MD Primary Care Provider Active Dr. Heron Rodriguez DO Emergency Provider Active Dr. David Weeks MD Attending Provider Active Dr. Shaun Lynch DO Admit Provider Active Home Appliance Tech Relationship Specialty Start Date End Date Bandar Graf PA-C [address] [place] [address] PCP - General Family Medicine 07/09/18 Caroline El DO [address] [place], [place] [id number] Heel Scourer Cardiology 07/06/21 Home Appliance Tech Relationship Specialty Start Date End Date Bandar Graf PA-C [address] [place], [place] [address] PCP - General Family Medicine 07/09/18 Caroline El DO [address] [place], [place] [id number] Heel Scourer Cardiology 07/06/21 Home Appliance Tech Relationship Specialty Start Date End Date Bandar Graf PA-C [address] [place] [address] PCP - General Family Medicine 07/09/18 Caroline El DO [address] [place], [place] [id number] Heel Scourer Cardiology 07/06/21 Home Appliance Tech Relationship Specialty Start Date End Date Bandar Graf PA-C [address] [place] [address] PCP - General Family Medicine 07/09/18 Caroline El DO [address] [place] [address] Heel Scourer Cardiology 07/06/21 Home Appliance Tech Relationship Specialty Start Date End Date Bandar Graf PA-C [address] [place] [address] PCP - General Family Medicine 07/09/18 Caroline El DO [address] [place] [address] Heel Scourer Cardiology 07/06/21 Home Appliance Tech Relationship Specialty Start Date End Date Bandar Graf PA-C [address] [place] [address] PCP - General Family Medicine 07/09/18 Caroline El DO [address] [place], [place] [id number] Heel Scourer Cardiology 07/06/21 Home Appliance Tech Relationship Specialty Start Date End Date Bandar Graf PA-C [address] [place] [address] PCP - General Family Medicine 07/09/18 Caroline El DO [address] [place], [place] [id number] Heel Scourer Cardiology 07/06/21 Home Appliance Tech Relationship Specialty Start Date End Date Bandar Graf PA-C [address] [place] [address] PCP - General Family Medicine 07/09/18 Caroline El DO [address] [place], [place] [id number] Heel Scourer Cardiology 07/06/21 Home Appliance Tech Relationship Specialty Start Date End Date Zoraida Tavarez APRN.CROSS ENTERPRISE INTEGRATOR [address] [place] [address] PCP - General Family Medicine 03/19/24 Caroline El DO [address] [place], [place] [id number] Heel Scourer Cardiology 07/06/21 Home Appliance Tech Relationship Specialty Start Date End Date Zoraida Tavarez, 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 [address] [place] [address] PCP - General Family Medicine 03/19/24 Caroline El DO [address] [place] [address] Heel Scourer Cardiology 07/06/21 Home Appliance Tech Relationship Specialty Start Date End Date Zoraida Tavarez, 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 [address] [place] [address] PCP - General Family Medicine 03/19/24 Caroline El DO [address] [place], [place] [id number] Heel Scourer Cardiology 07/06/21 Home Appliance Tech Relationship Specialty Start Date End Date Zoraida Tavarez, 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 [address] [place] [address] PCP - General Family Medicine 03/19/24 Caroline El DO [address] [place] [address] Heel Scourer Cardiology 07/06/21 Home Appliance Tech Relationship Specialty Start Date End Date Zoraida Tavarez, 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 [address] [place] [address] PCP - General Family Medicine 03/19/24 Caroline El DO [address] [place], [place] [id number] Heel Scourer Cardiology 07/06/21 Home Appliance Tech Relationship Specialty Start Date End Date Zoraida Tavarez, 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 [address] [place] [address] PCP - General Family Medicine 03/19/24 Caroline El DO [address] [place], [place] [id number] Heel Scourer Cardiology 07/06/21 Home Appliance Tech Relationship Specialty Start Date End Date Zoraida Tavarez 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 [address] [place], [place] [address] PCP - General Family Medicine 03/19/24 Caroline El DO [address] [place] [address] Heel Scourer Cardiology 07/06/21 Home Appliance Tech Relationship Specialty Start Date End Date Zoraida Tavarez, 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 [address] [place] [address] PCP - General Family Medicine 03/19/24 Caroline El DO [address] [place], [place] [id number] Heel Scourer Cardiology 07/06/21 Home Appliance Tech Relationship Specialty Start Date End Date Zoraida Tavarez, 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 [address] [place], [place] [address] PCP - General Family Medicine 03/19/24 Caroline El DO [address] [place] [address] Heel Scourer Cardiology 07/06/21 Home Appliance Tech Relationship Specialty Start Date End Date Zoraida Tavarez, 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 [address] [place] [address] PCP - General Family Medicine 03/19/24 Caroline El DO [address] [place], [place] [id number] Heel Scourer Cardiology 07/06/21 Home Appliance Tech Relationship Specialty Start Date End Date Zoraida Tavarez APRN.CROSS ENTERPRISE INTEGRATOR [address] [place] [address] PCP - General Family Medicine 03/19/24 Caroline El DO [address] [place] [address] Heel Scourer Cardiology 07/06/21 Home Appliance Tech Relationship Specialty Start Date End Date Zoraida Tavarez APRN.CROSS ENTERPRISE INTEGRATOR [address] [place] [address] PCP - General Family Medicine 03/19/24 Caroline El DO [address] [place] [address] Heel Scourer Cardiology 07/06/21 Home Appliance Tech Relationship Specialty Start Date End Date Zoraida Tavarez 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 [address] [place] [address] PCP - General Family Medicine 03/19/24 Caroline El DO [address] [place] [address] Heel Scourer Cardiology 07/06/21 Home Appliance Tech Relationship Specialty Start Date End Date Zoraida Tavarez, 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 [address] [place] [address] PCP - General Family Medicine 03/19/24 Caroline El DO [address] [place] [address] Heel Scourer Cardiology 07/06/21 Home Appliance Tech Relationship Specialty Start Date End Date Zoraida Tavarez APRN.CROSS ENTERPRISE INTEGRATOR [address] [place] [address] PCP - General Family Medicine 03/19/24 Caroline El DO [address] [place] [address] Heel Scourer Cardiology 07/06/21 Home Appliance Tech Relationship Specialty Start Date End Date Zoraida Tavarez APRN.CROSS ENTERPRISE INTEGRATOR [address] [place] [address] PCP - General Family Medicine 03/19/24 Caroline El DO [address] [place] [address] Heel Scourer Cardiology 07/06/21 Home Appliance Tech Relationship Specialty Start Date End Date Zoraida Tavarez 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 [address] [place] [address] PCP - General Family Medicine 03/19/24 aCroline El DO [address] [place] [address] Heel Scourer Cardiology 07/06/21 Home Appliance Tech Relationship Specialty Start Date End Date Zoraida Tavarez 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 [address] [place] [address] PCP - General Family Medicine 03/19/24 Caroline El DO [address] [place] [address] Heel Scourer Cardiology 07/06/21 Goals (unrecognized section and content) Goals may be documented in a n alternate sectionGoals may be documented in an alternate sectionGoals may be documented in an alternate sectionGoals may be documented in an alternate sectionGoals may be documented in an alternate section (unrecognized sect ion and content) No Status Records FoundNo Status Records Found INFORMATION SOURCE (unrecogn ized section and content) DATE CREATED AUTHOR 07/02/2024 [facility] DATE CREATED AUTHOR AUTHOR'S ANIA SCHILLING 01/18/2025 [facility] FOR RECORDS PERTAINING TO PATIENTS WHO ARE [...] BE BASED ON THE PRIMARY CLINICAL RECORDS. [employer] [facility]. provides no warranty or guarantee of the accuracy or completeness of information in this document.
--- NOTE | 2025-01-25 12:08 | EX.ED.GENINJ ---
HPI History of Present Illness Chief Complaint: Laceration Informant: patient and parent Narrative Narrative: Patient was cutting down tree limbs, one of them came down and hit him in the face unexpectedly sustaining a laceration and injury to his right eye states he already pulled out a piece of wood from his eye. He denies loss of consciousness, vomiting, focal neurologic symptoms or other injury including his neck or back. Tetanus Immunization: Unknown [facility] Medical History Kidney stone Basal cell carcinoma Restless leg syndrome Gout Thyroid cancer Hyperlipidemia HTN (hypertension) Pyelonephritis Vertigo Home Medications ?Medication ?Instructions ?Recorded ?Last Taken ?Type allopurinol 300 mg tablet 300 mg PO DAILY 10/14/23 01/25/25 History gabapentin 300 mg capsule 300 mg PO QHS 10/14/23 01/24/25 History ibuprofen 400 mg tablet 400 mg PO Q8H PRN pain #14 tabs 10/14/23 Unknown Rx levothyroxine 137 mcg tablet 137 mcg PO MOTUWETHFRSA 10/14/23 01/25/25 History lisinopril 5 mg tablet 5 mg PO DAILY 10/14/23 01/24/25 History rosuvastatin 20 mg tablet 20 mg PO QHS 10/14/23 01/24/25 History tamsulosin 0.4 mg capsule (Flomax) 0.4 mg PO DAILY PRN urination 10/14/23 Unknown History Allergy/AdvReac Type Severity Reaction Status Date / Time No Known Allergies Allergy Verified 01/25/25 10:56 Family History no significant family his Surgical History History of thyroid surgery Social History Smoking Status: Never smoker ROS ROS ED Constitutional Constitutional ED: Denies chills or fever(s) Eyes Eyes: Reports other Details: Right eye pain and foreign body sensation ; Denies diplopia ENT ENT ED: Reports facial pain; Denies rhinorrhea or sore throat Cardiovascular Cardiovascular: Denies chest pain or palpitations Respiratory/Chest Respiratory/Chest: Denies cough or dyspnea Gastrointestinal Gastrointestinal: Denies abdominal pain, diarrhea, nausea or vomiting Genitourinary Genitourinary ED: Denies dysuria or hematuria Musculoskeletal Musculoskeletal: Denies back pain or neck pain Integumentary Reports laceration; Denies abscess or rash Neurologic Neurologic: Reports headache(s); Denies paresthesias or weakness Psychiatric Psychiatric: Denies anxiety or suicidal thoughts EXAM Physical Exam Const Vital Signs: 01/25/25 10:53 01/25/25 11:53 01/25/25 12:00 Temperature 98.5 F Temperature Source Oral Pulse Rate 64 57 L 57 L Respiratory Rate 16 Blood Pressure 149/90 H 135/53 H 112/74 Blood Pressure Mean 109 80 86 Pulse Ox 94 97 97 Oxygen Delivery Method Room Air Room Air Room Air 01/25/25 13:00 01/25/25 14:00 01/25/25 15:00 Temperature Temperature Source Pulse Rate 52 L Respiratory Rate Blood Pressure 112/74 125/77 H 116/72 Blood Pressure Mean 86 93 86 Pulse Ox 97 Oxygen Delivery Method Room Air 01/25/25 16:00 01/25/25 16:50 01/25/25 17:00 Temperature 98.5 F Temperature Source Pulse Rate 51 L 72 Respiratory Rate 16 Blood Pressure 133/60 H 156/96 H 156/96 H Blood Pressure Mean 84 116 116 Pulse Ox 95 95 Oxygen Delivery Method Room Air Positive well nourished and well developed General Appearance ED: well developed and NAD HEENT HEENT Narrative: Laceration and tenderness to the right forehead and eyebrow, there is a stellate 6 cm total laceration full-thickness, no active bleeding. There is also a full-thickness laceration of the inferior eyelid that does not involve the margin, of approximately 1.5 cm it is irregular. It is not through and through. There is no involvement of the medial canthus. He has no epistaxis. There is no facial bone tenderness. trauma Eyes PERRL and EOMs intact bilaterally General Eye ED: Yes other Other Details: See above. Left eye is atraumatic. Neck full ROM and supple Resp normal respiratory effort Back/Spine no CVA tenderness General Back: other FROM Extremity normal to inspection General Extremety ED: Negative for edema, pulses abnormal or tenderness General Extremity: Negative for edema or pulses abnormal Neuro oriented x3, CN's II-XII intact bilaterally and no sensory deficits noted [place] Coma Scale: document GCS findings Spontaneous Obeys Commands Oriented 15 Sensorium / Orientation: awake and alert Motor Exam: strength 5/5 throughout Psych mental status grossly normal and thought process normal Skin Skin Narrative: Right facial and eyelid laceration see HPI such HEENT PROC Procedures Lacerations right forehead/eyebrow: Length: 6 cm Depth: Sub Q Shape: Stellate Prep: Sterile Conditions and Chlorhexadine Laceration repair: Irrigated, Lidocaine with epi (3cc, 1%), Local and Skin sutures Irrigated (ml): 60 Number of Sutures/Artemio: 12 Suture Information: Ethilon, Simple and 6-0 Other Procedures Procedure(s): Foreign body removal right eye: On gross inspection there are several large foreign bodies within the right eye/eyelid. All are mobile and do not appear to be embedded within the globe itself. I removed 2 large pieces of wood, and then 2 very small black mobile foreign bodies that were adherent to the cornea, using a sterile cotton swab for all of the above. Grossly there is no Siedel sign when staining with fluorescein, and I see no evidence of hyphema.. Upon attempting to view with the slit-lamp, the lamp is malfunctioning. And there is no light for me to see. MDM MDM MDM Narrative Medical decision making narrative: I repaired the right forehead/eyebrow laceration see the procedure note. 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 Slit-lamp was given as technical difficulties I was able to barely get it to light up, but the cobalt blue filter is not operating correctly and the light is not bright enough for me to confirm that he does not have corneal abrasion which I am suspicious for. He has diffuse conjunctival injection. He usually wears glasses and usually cannot see much out of the right eye, and after tetracaine and removing the foreign bodies we did visual acuities, he is 20/200 in the right eye which he states is his good eye and his left eye is chronically worse. This is uncorrected. However he states that he seems to have more blurry/hazy vision throughout the right visual field of the right eye and the left visual field seems closer to normal. Given this, more concerned that he could have had an internal eye injury. Anterior chamber and slit-lamp exam seems to be deep and quiet and I can confirm under slit-lamp there is no hyphema or hypopyon. Discussed with ophthalmology on-call Dr. Huber, who recommends obtaining CT of the orbit which was done in addition to CT of the brain, both on my interpretation negative for acute injury other than the clinically apparent soft tissue injuries, nor residual foreign body, and transferring the patient to a trauma center for urgent/emergent ophthalmologic evaluation. As I discussed with the patient this is recommended, as a differential includes lens and retinal injury, although it is certainly possible that his asymmetric hazy symptoms are related to simply just a corneal abrasion. I am more concerned about the mechanism of injury here as well as the inferior eyelid laceration which is too close to the margin for my comfort to repair. After discussing with ophthalmology at [facility], she stated that she will probably not recommend repairing the laceration emergently anyway, but possibly in a delayed fashion as an outpatient due to the possibility of fungal contamination from the wood that could be infecting the laceration. There is a local ophthalmology here in [place] so that he would be happy to follow-up with the patient as an outpatient so that information was given to the patient prior to transfer to the [facility] ED. Lab Data Labs: n/a Radiography Diagnostic Testing: Clinical Impression(s) from Imaging Studies CT Orbit Sella Inner 01/25/25 15:46 IMPRESSION: Right periorbital and supraorbital soft tissue injury Reading Location: [facility] Brain CT 01/25/25 15:47 IMPRESSION: No acute intra calvarial process appreciated. Subcutaneous soft tissue injury above and involving the supraorbital right orbit and frontal bone Reading Location: [facility] Management Discussion w/another healthcare provider: Livestock Nutritionist (ophtho dr. huber; pt's optomotrist; Dr. Mccurdy [facility]; EM physician [facility]) Discharge Plan Triage Chief Complaint: Laceration Other Complaint: Eye Problem ED Provider: Jose Luis Snider Dx/Rx/DC Orders Clinical Impression: Laceration of face, Right eyelid laceration, Foreign body of right eye, Blunt injury, right eye Prescriptions: No Action levothyroxine 137 mcg tablet 137 mcg PO MOTUWETHFRSA gabapentin 300 mg capsule 300 mg PO QHS lisinopril 5 mg tablet 5 mg PO DAILY rosuvastatin 20 mg tablet 20 mg PO QHS tamsulosin [Flomax] 0.4 mg capsule 0.4 mg PO DAILY PRN (Reason: urination) allopurinol 300 mg tablet 300 mg PO DAILY ibuprofen 400 mg tablet 400 mg PO Q8H PRN (Reason: pain) Qty: 14 0RF Primary Care Provider: Anthony Solano Referrals: Popeye Huber MD [Med Staff - Active Staff] - As soon as possible Print Language: Ukrainian Disposition Disposition: Acute Care Hospital Discharge Location: [facility]
--- NOTE | 2025-01-25 15:46 | CT_ITS ---
PROCEDURE: ORB SELLA POST FOSSA EAR W/O 01/25/2025 REASON FOR EXAM: TRAUMA RIGHT EYE TECHNIQUE: ORB SELLA POST FOSSA EAR W/O CONTRAST: No contrast. One or more dose reduction techniques were used (e.g., Automated exposure control, adjustment of the mA and/or kV according to patient size, use of iterative reconstruction technique). RADIATION DOSE SUMMARY: CTDlvol: 44.99 and 29.38 mGy DLP: 1256.79 mGycm COMPARISON: CT head today FINDINGS: Globes: Intact Extraocular Muscles: Intact Orbits: Normal Lacrimal Glands: Unremarkable Bones: No fracture identified Other: Visualized paranasal sinuses and intracranial structures: Clear. No effusions. No fractures. Mild soft tissue swelling right supraorbital ridge and right forehead over the frontal bone no underlying fracture identified. CT/Orb Sella Post Fossa Ear w/o IMPRESSION: Right periorbital and supraorbital soft tissue injury Reading Location: [facility]
--- NOTE | 2025-01-25 15:47 | CT_ITS ---
PROCEDURE: BRAIN/HEAD WITHOUT CONTRAST 01/25/2025 REASON FOR EXAM: TRAUMA TECHNIQUE: BRAIN/HEAD WITHOUT CONTRAST Coronal and Sagittal reconstruction series were provided. One or more dose reduction techniques were used (e.g., Automated exposure control, adjustment of the mA and/or kV according to patient size, use of iterative reconstruction technique. RADIATION DOSE SUMMARY: CTDlvol: 44.99 and 29.38 mGy DLP: 1256.79 mGycm FINDINGS: Brain: No intra-axial or extra-axial hemorrhage. No mass, mass effect or midline shift. CSF Spaces: Normal for age ventricle and sulci CSF spaces Sinuses/Mastoids: No bloody effusions in the mastoid air cells and paranasal sinuses Bones: No acute fracture appreciated. Mild soft tissue swelling in the right frontal subcutaneous tissues over the supraorbital ridge in the right frontal bone CT/Brain/Head without Contrast IMPRESSION: No acute intra calvarial process appreciated. Subcutaneous soft tissue injury above and involving the supraorbital right orbi t and frontal bone Reading Location[facility]
--- NOTE | 2025-01-25 16:28 | CM.ED ---
Date of referral: 01/25/25 Reason for referral: Advanced Care Directives (ACD's) not on file. Referred by: Social Work Identification Patient provided consent for visit. Rehabilitation Medicine Physician requested patient to bring in a copy of ACD's which patient agreed to. Jesisca Fountain, [employer] FIBER UNIT OPERATOR, MACHINE SHORTHAND TEACHER
--- NOTE | 2025-01-25 17:46 | ED.RN ---
Report called to summa.
== END 2025-01-25 17:59 | disposition short-term general hospital (02) ==
PROVIDERS: Emergency Provider Emergency Medicine; PCP Family Medicine; Visit Provider Emergency Medicine
DX: S01.111A Laceration without foreign body of right eyelid and periocular area, initial encounter (principal); E78.5 Hyperlipidemia, unspecified; G24.5 Blepharospasm; I10 Essential (primary) hypertension; Z79.899 Other long term (current) drug therapy; Z79.890 Hormone replacement therapy; E07.9 Disorder of thyroid, unspecified; S01.81XA Laceration without foreign body of other part of head, initial encounter; H16.11 Macular keratitis; T15.81XA Foreign body in other and multiple parts of external eye, right eye, initial encounter; W44.8XXA Other foreign body entering into or through a natural orifice, initial encounter; W26.8XXA Contact with other sharp object(s), not elsewhere classified, initial encounter; Z23 Encounter for immunization
CPT/HCPCS: 12014; 70450; 70480; 90715; 99285; A4216

== ENCOUNTER → 2025-01-27 | Outpatient (CLI) | payer MEDICARE, OTHER, SELFPAY ==
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
== END | disposition home or self-care (01) ==
PROVIDERS: PCP Family Medicine; Referring Provider Ophthalmology; Visit Provider Ophthalmology
DX: S01.111A Laceration without foreign body of right eyelid and periocular area, initial encounter (principal)
CPT/HCPCS: 70543; A9575; A4216